=== PATIENT | female | born 1950 | race Caucasian/White ===

== ENCOUNTER 2017-12-25 05:49 | Emergency (ER) | payer MEDICARE, SELFPAY ==
[2017-12-25 05:50] VITALS: BP 142/115; PULSE 64; RESP 17; TEMP 36.3; O2SAT 95; BMI 27.9
--- NOTE | 2017-12-25 06:06 | CT_ITS ---
STUDY: CT ABDOMEN AND PELVIS WITHOUT CONTRAST REASON FOR EXAM: Female, 67 years old. Left lower quadrant pain. RADIATION DOSAGE (If Supplied By Facility): CTDIvol = ( 7.89 ) mGy, DLP = ( 354.97 ) mGycm TECHNIQUE: Transaxial images were obtained from the dome of the diaphragm to the symphysis pubis without oral contrast, and without intravenous contrast. Sagittal and coronal images were reconstructed. Individualized dose optimization techniques were used for this CT. COMPARISON: Comparison is made with prior study dated January 15, 2013. FINDINGS: Mild increased markings at the lung bases suggestive of scarring. Coronary artery calcification. Stable 2.9 cm x 2.5 cm rounded hypodensity in the right lobe of the liver inferiorly. This was seen on prior examinations and most likely represents a hemangioma. Normal gallbladder and extrahepatic biliary system. Normal spleen. Normal pancreas. Normal bilateral adrenal glands. Small nonobstructive right intrarenal calculi. Nonobstructive left intrarenal calculi. There is a small hiatal hernia. Normal small intestine. There are multiple colonic diverticula consistent with diverticulosis. There is non-visualization of the appendix. There is diffuse atherosclerotic calcification of the abdominal aorta, without a demonstrated aneurysm. Normal inferior vena cava. Normal retroperitoneum. Normal urinary bladder. There is absence of the uterus consistent with a prior hysterectomy. There is a small umbilical hernia containing fat. Small bilateral inguinal lymph nodes. There are diffuse degenerative changes of the visualized lumbar spine. Status post laminectomy at the L4-L5 level. CT/Abdomen/Pelvis without Cont IMPRESSION: Stable hypodensity in the inferior aspect of the right lobe of the liver suggestive of hemangioma. Bilateral nonobstructive intrarenal calculi more prominent on the right side. Sigmoid diverticulosis. Prior appendectomy and hysterectomy. Electronically Signed: Tylor Amor MD at 8:10 EST Tel [phone], Service support ,
[2017-12-25 06:21] LABS: Absolute Lymphocyte Count 1.16 X10^3/ul (0.83-4.51); Absolute Neutrophil Count 1.4 X10^3/uL (2.0-7.7); Basophil# 0.02 X10^3/uL; Basophil% 0.6 % (0-1); Eosinophil# 0.08 X10^3/uL; Eosinophils% 2.5 % (0-5); Hematocrit 42.5 % (37-47); Hemoglobin 13.7 g/dl (12.0-15.0); Lymphocyte # 1.16 X10^3/ul (4.0); Lymphocyte % 36.7 % (19-41); Mean Corp Hgb Conc 32.2 g/gl (32-36); Mean Corpuscular Hgb 29.7 pg (27.0-32.0); Mean Platelet Vol. 9.7 fl (6.2-12.0); Monocyte% 15.8 % (0-10); Neutrophil % 44.4 % (47-70); Platelet Count 205 K/mm3 (150-450); RBC Distribution Width CV 13.1 % (11.6-14.6); RBC Distribution Width SD 43.7 fl (35.1-43.9); Red Blood Count 4.62 M/mm3 (4.2-5.4); White Blood Count 3.2 K/mm3 (4.4-11.0)
[2017-12-25 06:23] LABS: POSITIVE COUNT NO; POSITIVE DIFFERENTIAL NO; POSITIVE MORPHOLOGY NO
[2017-12-25] MEDS: Ondansetron 4 MG/2 ML Vial IV (06:27)
--- NOTE | 2017-12-25 06:27 | ED.VISSUMM ---
- ER Visit Summary Date of Service: 12/25/17 Chief Complaint: [Abdominal pain] History of Present Illness: The patient is a 67 F [who presents the emergency department with left side abdominal pain that started abruptly about 40 minutes ago. No nausea or vomiting. The pain is now resolved. Bowel movements have been normal. She has been having dysuria and frequency for the last 2 weeks. She was started on Tamiflu last Monday and her flu symptoms are improving. She thought her dysuria and frequency we was due to the medication. She has a history of hypertension hyperlipidemia as well as kidney stones. She has had an appendectomy and a tubal ligation. She followed by Dr. Eduardo and Peggy Sarabia] Physical Examination: [] Blood pressure 142/115 other vitals within normal limits WN WD NAD PERRL EOMI MMM NECK supple and nontender, no masses RRR no murmur rub or gallop, no peripheral edema, symmetric radial pulses CTAB no respiratory distress ABDOMEN is soft and mild tenderness to palpation in the left upper and left lower quadrant, normal bowel sounds, no distension, no rebound or guarding SKIN is warm and dry no rashes Alert and Oriented x3, CN II-XII in tact, no motor or sensory deficits, gait normal No lymphadenopathy Test Results: [] Emergency Department Course and Treatment: [Patient was given gentle hydration. Screening labs are significant for a leukopenia at 3.2 which is likely related due to her recent viral illness. Urinalysis and CAT scan are pending. Patient appears very well. She has mild tenderness on exam. I anticipate that she will be discharged home. She continues to remain with minimal pain in the emergency department. Results urinalysis and CAT scan will be read by oncoming physician.] Treatment Plan: [] Disposition: [] Impression: [Abdominal pain left-sided] This note was generated with [employer]ation software. It may contain incorrect words, spelling, and punctuation that were not noted in review of the chart prior to signing ED Disposition - Plan for ED Patient: Chief Complaint: Abd Pain Referrals: Peggy Lott [Primary Care Provider] -
[2017-12-25] MEDS: 0.9% Normal Saline 1,000 ML 125 ML IV (06:29)
[2017-12-25 06:36] LABS: ALB/GLOB Ratio 0.8 RATIO (0.9-2.4); AST(SGOT) 25 U/L (15-37); Alanine Aminotransfer ALT/SGPT 25 U/L (13-56); Albumin, Serum 3.3 g/dL (3.2-5.0); Alkaline Phosphatase 66 U/L (45-117); Anion Gap 8 (5-15); BUN 16 mg/dL (7-18); BUN/Creat Ratio 20.8 RATIO (10-20); Chloride 104 mmol/L (98-107); Creatinine, Serum 0.77 mg/dL (0.55-1.02); EST Glomerular Filtration Rate 79 mL/min (>60); Est Glom Filt Rate - Afr Amer 96 mL/min (>60); Estimated Creatinine Clearance 40.63 ml/min; Globulin 3.9 g/dL (2.2-4.2); Glucose 96 mg/dL (70-110); Lipase 211 U/L (73-393); Protein, Total 7.2 g/dL (6.4-8.2); Sodium Level 140 mmol/L (136-145)
[2017-12-25 07:52] LABS: Bacteria 0 SEEN /hpf (None Seen); Mucous, Urine 0 SEEN /hpf (<or=2+); Red Blood Cells-Urine 0 SEEN /hpf (0-5); Squamous Epithelial Cells - UA 0 SEEN /hpf (5-10)
[2017-12-25 07:54] LABS: Color, Urine Straw (Yellow); Glucose, Dipstick Normal (Normal); Ketone-Dipstick Negative (Negative); Leukocyte Esterase-Dipstick Negative /ul (Negative); Nitrite-Dipstick Negative (Negative); Occult Blood-Urine Negative /ul (Negative); Protein-Dipstick Negative (Negative); Urine Bilirubin Dipstick Negative (Negative); Urine Clarity Clear (Clear); Urine Urobilinogen Normal (Normal)
[2017-12-25 08:02] LABS: White Blood Cells 0-5 SEEN /hpf (0-5)
--- NOTE | 2017-12-25 08:38 | ED.VISSUMM ---
- ER Visit Summary Date of Service: 12/25/17 Chief Complaint: [] History of Present Illness: The patient is a 67 F [] Physical Examination: [] Test Results: [] Emergency Department Course and Treatment: [] Treatment Plan: [] Disposition: [] Impression: [] This note was generated with bright box dictation software. It may contain incorrect words, spelling, and punctuation that were not noted in review of the chart prior to signing ED Disposition - Plan for ED Patient: Disposition: Home or Assisted Living Chief Complaint: Abd Pain Instructions: ED Abdominal Pain Unkn Cause Referrals: Peggy Lott [Primary Care Provider] - As Needed
== END 2017-12-25 08:51 | disposition home or self-care (01) ==
PROVIDERS: Emergency Provider Emergency Medicine; Family Provider Nurse Practitioner; PCP Nurse Practitioner
DX: R10.32 Left lower quadrant pain (principal); R10.12 Left upper quadrant pain; K57.30 Diverticulosis of large intestine without perforation or abscess without bleeding; D18.03 Hemangioma of intra-abdominal structures; R30.0 Dysuria; R35.0 Frequency of micturition; I10 Essential (primary) hypertension; E78.5 Hyperlipidemia, unspecified; E66.9 Obesity, unspecified; Z79.899 Other long term (current) drug therapy; Z87.442 Personal history of urinary calculi; Z98.51 Tubal ligation status
CPT/HCPCS: 74176; 80053; 81001; 83690; 85025; 96361; 96374; 96375; 99283; J7050; A4216; J2405

== ENCOUNTER → 2018-01-24 10:09 | Outpatient (CLI) | payer MEDICARE, SELFPAY ==
--- NOTE | 2018-01-24 10:12 | NM_ITS ---
CLINICAL: 67-year-old female with history of suspected hyperparathyroidism. 99m Tc SESTAMIBI DUAL PHASE PARATHYROID SCINTIGRAPHY COMPARISON: None available FINDINGS: Following the intravenous administration of 26.0 mCi of 99m Tc sestamibi, image acquisitions of the anterior neck at approximately 30 minutes and 2.0 hours post radiopharmaceutical provision reveal: 1. Immediate static blood pool acquisitions demonstrate distribution of the radiopharmaceutical in the right-left thyroid colloid of a U-shaped thyroid gland. There is subtle tracer concentration identified in the left anterior neck adjacent to the inferior pole of the visualized left lobe thyroid parenchyma. 2. Delayed images depict near complete symmetric washout of the radiopharmaceutical from the previously defined right-left thyroid colloid with relatively unchanged uptake noted in the region left anterior neck adjacent to the left thyroid bed inferior pole. NM/Parathyroid Scan IMPRESSION: 1. There is no definitive typical scintigraphic evidence of parathyroid adenoma on the current examination. 2. Correlation with thyroid ultrasound may be of benefit for further evaluation of the subtle left anterior neck focus of persistent tracer concentration. Electronically Signed: Vern Hendricks DO at 10:08 EST Tel , Service support ,
== END ==
PROVIDERS: Family Provider Nurse Practitioner; PCP Nurse Practitioner; Visit Provider Nurse Practitioner
DX: E21.5 Disorder of parathyroid gland, unspecified (principal)
CPT/HCPCS: 78070; A9500

== ENCOUNTER → 2018-02-19 15:01 | Outpatient (CLI) | payer MEDICARE, SELFPAY ==
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
== END ==
PROVIDERS: Family Provider Nurse Practitioner; PCP Nurse Practitioner; Visit Provider Nurse Practitioner
DX: S13.4XXA Sprain of ligaments of cervical spine, initial encounter (principal); X58.XXXA Exposure to other specified factors, initial encounter; Y93.9 Activity, unspecified; Y92.9 Unspecified place or not applicable; Y99.9 Unspecified external cause status
CPT/HCPCS: 72050

== ENCOUNTER 2018-04-17 16:30 | Outpatient (RCR) | payer MEDICARE, SELFPAY ==
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
== END 2018-04-17 19:00 | disposition home or self-care (01) ==
LOC: PT 16:30
PROVIDERS: Family Provider Nurse Practitioner; PCP Nurse Practitioner; Visit Provider Nurse Practitioner
DX: S13.4XXD Sprain of ligaments of cervical spine, subsequent encounter (principal)
CPT/HCPCS: 97035; 97110; 97140; 97162; 97530

== ENCOUNTER 2018-07-24 17:25 | Emergency (ER) | payer MEDICARE, SELFPAY ==
[2018-07-24 17:26] VITALS: BP 113/72; PULSE 71; RESP 16; TEMP 36.4; O2SAT 99; BMI 22.4
[2018-07-24 18:41] LABS: Absolute Lymphocyte Count 0.62 X10^3/ul (0.83-4.51); Absolute Neutrophil Count 4.7 X10^3/uL (2.0-7.7); Basophil# 0.02 X10^3/uL; Basophil% 0.3 % (0-1); Eosinophil# 0.03 X10^3/uL; Eosinophils% 0.5 % (0-5); Hematocrit 36.8 % (37-47); Hemoglobin 11.8 g/dl (12.0-15.0); Lymphocyte # 0.62 X10^3/ul (4.0); Lymphocyte % 10.5 % (19-41); Mean Corp Hgb Conc 32.1 g/gl (32-36); Mean Corpuscular Hgb 29.5 pg (27.0-32.0); Mean Platelet Vol. 9.1 fl (6.2-12.0); Monocyte# 0.53 X10^3/uL; Neutrophil # 4.67 X10^3/uL (2.7-7.7); Neutrophil % 79.5 % (47-70); POSITIVE COUNT NO; POSITIVE DIFFERENTIAL NO; POSITIVE MORPHOLOGY NO; Platelet Count 203 K/mm3 (150-450); RBC Distribution Width CV 14.1 % (11.6-14.6); RBC Distribution Width SD 47.6 fl (35.1-43.9); White Blood Count 5.9 K/mm3 (4.4-11.0)
[2018-07-24 18:44] VITALS: BP 110/73; BP 119/74; BP 97/77; PULSE 76; PULSE 77; PULSE 79
[2018-07-24] MEDS: 0.9% Normal Saline 1,000 ML 1000 ML IV (18:44)
[2018-07-24 18:52] LABS: Anion Gap 8 (5-15); BUN 18 mg/dL (7-18); BUN/Creat Ratio 25.1 RATIO (10-20); Calcium,Total 8.1 mg/dL (8.5-10.1); Chloride 110 mmol/L (98-107); Creatinine, Serum 0.72 mg/dL (0.55-1.02); EST Glomerular Filtration Rate 86 mL/min (>60); Est Glom Filt Rate - Afr Amer 104 mL/min (>60); Estimated Creatinine Clearance 40.63 ml/min; Glucose 78 mg/dL (74-106); Sodium Level 142 mmol/L (136-145)
--- NOTE | 2018-07-24 18:53 | ED.DCSUM_ITS ---
- ER Visit Summary Date of Service: 07/24/18 Chief Complaint: Dehydrated History of Present Illness: The patient is a 67 F who sees Peggy sees her. She reports that she had been working in the heat was very lightheaded. This worsened when she stood. She did not pass out. States that she has had similar symptoms in the past with dehydration. Review of systems: General: No fever, chills, cold sweats. Cardiovascular: No chest pain, palpitations. Respiratory: No cough, shortness of breath, dyspnea on exertion. Gastrointestinal: No abdominal pain, nausea, vomiting, diarrhea, melena, or hematochezia. Genitourinary: No dysuria, frequency, hematuria. Skin: No rash. Neuro: No headache, numbness, weakness. Physical Examination: Vitals: Stable. Afebrile. General: Well-nourished and well-developed. Head: Normocephalic atraumatic. Neck: Supple, no lymphadenopathy. No JVD. Nontender. Cardiovascular: Regular rate and rhythm. No murmurs. Respiratory: No respiratory distress. Clear to auscultation bilaterally. Abdominal: Soft, nontender, nondistended, normal bowel sounds. No guarding, rebound, or peritoneal signs. Back: Nontender. Extremities: Nontender, no edema. Skin: Normal color, no rash. Neurologic: Alert and oriented ?3. Cranial nerves II through XII are intact. Normal strength and sensation. Psych: Normal affect. Test Results: EKG is sinus at 67 with no acute changes. CBC is marked for an H& H 11.36.8, segmented neutrophils 80, lymphs lites of 11. Chem-7 is more for chloride 110, calcium 8.1, and BUN/creatinine ratio 25.1. Emergency Department Course and Treatment: Patient had negative orthostatic vital signs. She was given a liter of normal saline and feels much improved. Treatment Plan: Patient be discharged instructions to push fluids. Follow-up with her primary care physician 1-2 days not improving. Return to the emergency department for any worsening symptoms. Disposition: To home in improved and stable condition. Impression: 1. Dehydration. This note was generated with [employer] software. It may contain incorrect words, spelling, and punctuation that were not noted in review of the chart prior to signing ED Disposition - Plan for ED Patient: Disposition: Home or Assisted Living Chief Complaint: Dizziness Instructions: ED Dehydration Referrals: Peggy Lott [Primary Care Provider] - 1-2 Days if not improving
[2018-07-24 19:40] VITALS: BP 113/78; PULSE 74; RESP 15; O2SAT 98
== END 2018-07-24 19:40 | disposition home or self-care (01) ==
PROVIDERS: Emergency Provider Emergency Medicine; Family Provider Nurse Practitioner; PCP Nurse Practitioner
DX: E86.0 Dehydration (principal); I10 Essential (primary) hypertension; Z79.899 Other long term (current) drug therapy
CPT/HCPCS: 80048; 85025; 93005; 96360; 99285; J7030; A4216

== ENCOUNTER → 2018-09-10 16:34 | Outpatient (CLI) | payer MEDICARE, SELFPAY ==
--- NOTE | 2018-09-10 16:37 | RAD_ITS ---
STUDY: X-RAY - RIGHT SHOULDER REASON FOR EXAM: Female, 67 years old. Pain. Fall. TECHNIQUE: 5 view(s) of the shoulder. COMPARISON: None. FINDINGS: Normal glenohumeral articulation. Normal acromioclavicular joint. Normal acromion. Normal humeral head and visualized proximal humerus. The soft tissue structures are unremarkable. There is no demonstrated fracture. Normal visualized pulmonary apex. RAD/Shoulder min 2 Views IMPRESSION: Normal x-ray examination of the shoulder. Electronically Signed: Christian Simeon MD at 18:53 EDT , Service support ,
[2018-09-10 17:42] LABS: Absolute Lymphocyte Count 1.01 X10^3/ul (0.83-4.51); Absolute Neutrophil Count 4.3 X10^3/uL (2.0-7.7); Basophil# 0.04 X10^3/uL; Basophil% 0.7 % (0-1); Eosinophil# 0.07 X10^3/uL; Eosinophils% 1.2 % (0-5); Hematocrit 43.8 % (37-47); Hemoglobin 14.2 g/dl (12.0-15.0); Lymphocyte # 1.01 X10^3/ul (4.0); Lymphocyte % 16.9 % (19-41); Mean Corp Hgb Conc 32.4 g/gl (32-36); Mean Corpuscular Hgb 29.9 pg (27.0-32.0); Mean Corpuscular Volume 92.2 fL (81-99); Mean Platelet Vol. 9.7 fl (6.2-12.0); Monocyte# 0.58 X10^3/uL; Monocyte% 9.7 % (0-10); Neutrophil # 4.25 X10^3/uL (2.7-7.7); Neutrophil % 71.3 % (47-70); Platelet Count 260 K/mm3 (150-450); RBC Distribution Width CV 13.8 % (11.6-14.6); RBC Distribution Width SD 45.2 fl (35.1-43.9); Red Blood Count 4.75 M/mm3 (4.2-5.4)
[2018-09-10 17:44] LABS: Iron 79 ug/dL (50-170)
[2018-09-10 17:49] LABS: POSITIVE COUNT NO; POSITIVE DIFFERENTIAL NO; POSITIVE MORPHOLOGY NO
== END ==
PROVIDERS: Family Provider Nurse Practitioner; PCP Nurse Practitioner; Referring Provider Nurse Practitioner; Visit Provider Nurse Practitioner
DX: M25.511 Pain in right shoulder (principal); D64.9 Anemia, unspecified
CPT/HCPCS: 36415; 73030; 83540; 85025

== ENCOUNTER 2018-10-25 16:30 | Emergency (ER) | payer MEDICARE, SELFPAY ==
[2018-10-25 16:32] VITALS: BP 131/93; PULSE 107; RESP 18; TEMP 37.4; O2SAT 98; BMI 22.6
--- NOTE | 2018-10-25 16:44 | ED.DCSUM_ITS ---
- ER Visit Summary Date of Service: 10/25/18 Chief Complaint: Right knee injury History of Present Illness: The patient is a 68 F presents to the emergency department for any injury. Patient states on Monday, she was walking. She tripped on the carpet and twisted her knee. Since then, she had increasing pain. She has been taking Motrin with little improvement. The knee has not been giving out on her. She denies any history of prior injury. She does not take anticoagulants. She did not fully fall or strike her head. Physical Examination: Exam is relatively unremarkable. Patient is a small effusion of her knee. Her extension is preserved. There is no gross laxity. S he is tender over the medial plateau and along the MCL. Pulses are normal in the foot. Test Results: [] Emergency Department Course and Treatment: I suspicion is that the patient may have MCL injury. There is no gross laxity of the knee. I did obtain plain films which were unremarkable. There is no fracture. She does have a small effusion. Patient was given crutches and an Cody wrap. She will be continued on anti-inflammatories. She will be given outpatient orthopedic referral for repeat examination. She is comfortable with this plan of care. Treatment Plan: [] Disposition: Discharge Impression: Right knee sprain This note was generated with [employer] dictation software. It may contain incorrect words, spelling, and punctuation that were not noted in review of the chart prior to signing ED Disposition - Plan for ED Patient: Chief Complaint: Lower Extremity Injury Instructions: ED Sprain Knee Prescriptions: Hydrocodone Bitart/Apap 5-325 [[place] 5MG-325MG] 1 tab PO Q4H PRN PRN 2 Days #6 tab PRN Reason: Pain Naproxen [Naprosyn] 500 mg PO BID PRN #20 tab Referrals: Kristopher Sparks DO [STAFF PHYSICIAN] -
--- NOTE | 2018-10-25 17:00 | RAD_ITS ---
STUDY: X-RAY - RIGHT KNEE REASON FOR EXAM: Female, 68 years old. Right medial knee pain after tripping and falling. TECHNIQUE: 4 view(s) of the knee. COMPARISON: None. FINDINGS: Normal visualized distal femur. Normal visualized proximal tibia and fibula. Normal proximal tibiofibular articulation. A faint ossified body measuring about 2 mm is visualized on the sunrise view of the patella in or projecting through the medial patellofemoral joint space without an obvious donor site. Normal medial femorotibial compartment. Normal lateral femorotibial compartment. Normal patellofemoral articulation. Anterior medial soft tissue swelling. RAD/Knee 4 or More Views IMPRESSION: Negative for definite fracture; however, a faintly visualized ossified body is visualized in or projecting through the medial compartment of the patellofemoral compartment without any obvious donor site. Negative for any arthritic or degenerative changes. Electronically Signed: Bety Díaz MD at 17:16 EST , Service support ,
[2018-10-25] MEDS: HYDROcodone Bitartrate/Apap 5/325 Tablet PO (17:07)
[2018-10-25 17:19] VITALS: BP 138/67; PULSE 71; RESP 15; O2SAT 96
--- OUTSIDE RECORDS SUMMARY | 2018-12-20 23:14 | XMS RPT_ITS | Continuity of Care Document ---
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 Silvana Simmons MD Status: REG CLI Study: Dexa Bone Density Study (HP) Date of Exam: 06/30/15 Exam# [id number] Ordering Dr: Obi Simmons MD STUDY: DUAL ENERGY X-RAY ABSORPTIOMETRY / DXA REASON FOR EXAM: Female, 64 years old. The patient is postmenopausal. TECHNIQUE: Bone Mineral Density (BMD) measurements of lumbar spine and b ilateral hips were obtained. COMPARISON: Comparison is made with prior study of January 31, 2013. FINDINGS: Lumbar Spine (L1-L4): g/cm2 (0.878) / T-score (-2.4) / Z-score (-0.8) Findings are suggestive of osteopenia with a moderate fracture risk. Left Femur Total: g/cm2 (0.719) / T-score (-2.4) / Z-score (-1.1) Left Femoral Neck: g/cm2 (0.694) / T-score (-2. 5) / Z-score (-1.0) Right Femur Total: g/cm2 (0.735) / T-score (-2.2) / Z-score (-0.9) Right Femoral Neck: g/cm2 (0.670) / T-score (-2.6) / Z-score (-1.2) The T-Scores on the most recent prior exami nation were: Lumbar Spine (L1-L4): There has been improvement of bone density since the previous examination. Left Femur Total: which represents a worsening of 1.1%. Right Femur Total: which repre sents a worsening of 0.9%. IMPRESSION: The patient is considered osteopenic as outlined below according to World [place] Organization (WHO) criteria with a moderat e fracture risk. There has been worsening of bone density since the previous examination. Reference Information: The T-score is the number of standard deviation s above or below the standard which is normal for young adults at their peak bone mineral density. The World Health Organization (WHO) interprets the T- scores as follows: Above -1 Normal bone densi ty Between -1 and -2.5 Osteopenia Equal to / or below -2.5 Osteoporosis As a practical clinical guideline, osteopenia may be graded as follows: Mild -1 through -1.5 Moderate -1.6 through -2.0 Sev ere -2.1 through -2.4 The Z-score is the number of standard deviations above or below age-matched controls. A Z-score of less than -1.5 would be considered abnormal. References: 1. NIH Osteoporosi s and Related Bone Diseases http://www.osteo.org 2. International Society for Clinical Densitometry http://www.iscd.org 3. National Osteoporosis Foundation http://www.nof.org Electronically Signed: Tylor Amor MD at 15:00 EDT Tel [phone], Service support [phone], CC: Silvana Simmons MD Windows And Doors Installer: Signed 14-Nov-2014 Echocardiogram Complete Result: Comments: See Note; NOTES: [facility] [address] [place] [id number] Echo Complete 11/14/14 1048 MR#: [id number] Acct: [id number] Name: ANTWAN FELIX Rep #: [id number] : 1950 64 From: Capo Powell MD Attending Dr: Silvana Simmons MD Status: REG CLI Ordering Dr: Silvana Simmons MD Date: 11/14/14 Location: [facility] Sex: F C Admitted: Aisha raekimberlycordelia This was a 2D Doppler, Color Flow transthoracic echocardiogram. Exam performed in department. Left Ventricle Normal LV size. Left ventricular systolic function is normal. The estimated eje ction fraction is 60 %. Transmitral and pulmonary venous doppler flow suggestive of impaired relaxation of left ventricle. No regional wall motion abnormalities noted. Right Ventricle Normal RV si ze. Normal systolic function. Atria Normal left atrium. Normal right atrium. Mitral Valve Normal mitral valve. Tricuspid Valve Normal tricuspid valve. Mild tricuspid valve insufficiency. Aort ic Valve Normal aortic valve. Pulmonic Valve Normal pulmonic valve. Great Vessels Mildly dilated aortic root. Pericardium/Pleural No pericardial effusion. MMode/2D Measurements AND Calculati ons LVIDd: 5.1 cm IVSd: 0.85 cm Ao root diam: 3.9 cm LAV(MOD-bp): 31.5 ml LVIDs: 4.1 cm LVPWd: 0.64 cm Ao root area: 11.7 cm2 LAV(MOD-bp) Indexed: 19.7 ml/m2 RVDd: 3.3 cm FS: 19.8 % LAV(MOD-sp2) : 3 7.4 ml LAV(MOD-sp4) : 24.3 ml LA A4 area: 12.1 cm2 RA A4 area: 12.5 cm2 Doppler Measurements AND Calculations MV E max eulalia: Lat Peak E' Eulalia: Med Peak E' Eulalia: Ao V2 max: 124.7 cm/sec 51.2 cm/sec 9.1 cm/sec 5.6 cm/sec Ao max P.2 mmHg MV A max eulalia: 80.7 cm/sec MV E/A: 0.63 LV V1 max: 94.4 cm/sec MR max eulalia: 473.8 cm/sec PA V2 max: 82.5 cm/sec TR max eulalia: LV V1 max P.6 mmHg MR max P.8 mmHg PA max P.7 mmHg 215.8 cm/sec TR max P.7 mmHg E/E' lat: 5.7 E/E' med: 9.2 Interpretation Summary Normal LV size. Left ve ntricular systolic function is normal. The estimated ejection fraction is 60 %. Transmitral and pulmonary venous doppler flow suggestive of impaired relaxation of left ventricle Ordering Physician: Silvana Simmons Performed By: Mckenzie Longo RDCS 11/14/14 1406 Date Capo Powell MD CC: Silvana Simmons MD Date Dictated: 11/14/14 1048 Date Transcribed: 11/14/14 1406 Windows And Doors Installer: Signed 04-Nov-2014 12 Lead Electrocardiogram Result: Comments: See Note; NOTES: [facility] [address] [place] [id number] 12 Lead EKG 11/02/14 1128 MR#: [id number] Acct: [id number] Name: VANITA FELIX Scarlett Rep #: [id number] : 1950 64 From: Capo Powell MD Attending Dr: Status: DEP ER Ordering Dr: Rafiq Chau MD Date: 11/02/14 Location: ED Sex: F C Admitted: Test Reason : SYN COPE Blood Pressure : / mmHG Vent. Rate : 103 BPM Atrial Rate : 103 BPM P-R Int : 132 ms QRS Dur : 086 ms QT Int : 330 ms P-R-T Axes : 053 -36 016 degrees QTc Int : 432 ms Sinus tachycar jillian Left axis deviation Inferior infarct , age undetermined Abnormal ECG Confirmed by CAPO POWELL MD ([id number]), production editor BEENA JIN ([id number]) on 11/04/2014 10:22:44 AM Referred By: JANET Lema B y:CAPO POWELL MD 11/04/14 1022 Date Capo Powell MD CC: Silvana Simmons MD Date Dictated: 11/02/141127 Date Transcribed: 11/02/141127 Windows And Doors Installer: Signed Family History Unknown Family Member Name Dates Details Brother 1 Comments: aneurysm, brain age 38 Status: Active Father Comments: aneurysm, Status: Active Mother Comments: Alzheimer's, CHF, Status: Active Sister 4 Comments: Stage 4 liver cancer Status: Active Social History Name Dates Details Caffeine Use Comments: occ. cup coffee qd Status: Active Current Work/Study Status Comments: Unemployed not looking for work Status: Active Exercise History Comments: Moderate Status: Active Living Situation Comments: , Lives with spouse Status: Active No Drug Use Status: Active Non Drinker/No Alcohol Use Status: Active Non Smoker/No Tobacco Use Status: Active Tobacco use: Never smoker. Status: Active Smoking Status Name Dates Details Never smoker Vital Signs Date Test Result Details :17 Temperature 98.8 f Comments: Method: Temporal Pulse 82 /min Comments: Pattern: Regular Respiration Rate 17 /min Comments: Pattern: Unlabored O2 SAT 97 % Comments: Room air BP Systolic 112 mm[Hg] Comments: Patient Position: Sitting; Cuff Location: Left Arm; Cuff Size: Standard BP Diastolic 72 mm[Hg] Comments: Patient Position: Sitting; Cuff Location: Left Arm; Cuff Size: Standard Weight 120.5 lb Height 60.5 in Body Mass Index Calculated 23.15 kg/m2 Body Surface Area Calculated 1.51 m2 :04 Temperature 97.1 f Pulse 108 /min Comments: Pattern: Regular Respiration Rate 17 /min Comments: Pattern: Unlabored O2 SAT 98 % Comments: Room air BP Systolic 132 mm[Hg] Comments: Patient Position: Sitting; Cuff Location: Left Arm; Cuff Size: Standard BP Diastolic 82 mm[Hg] Comments: Patient Position: Sitting; Cuff Location: Left Arm; Cuff Size: Standard Weight 120 lb Height 60.5 in Body Mass Index Calculated 23.05 kg/m2 Body Surface Area Calculated 1.51 m2 :11 Pulse 87 /min Comments: Pattern: Regular Respiration Rate 17 /min Comments: Pattern: Unlabored O2 SAT 87 % Comments: Room air BP Systolic 128 mm[Hg] Comments: Patient Position: Sitting; Cuff Location: Left Arm; Cuff Size: Standard BP Diastolic 68 mm[Hg] Comments: Patient Position: Sitting; Cuff Location: Left Arm; Cuff Size: Standard Weight 129.5 lb Height 60.5 in Body Mass Index Calculated 24.87 kg/m2 Body Surface Area Calculated 1.56 m2 :09 Pulse 112 /min Comments: Pattern: Regular Respiration Rate 18 /min Comments: Pattern: Unlabored O2 SAT 96 % Comments: Room air BP Systolic 122 mm[Hg] Comments: Patient Position: Sitting; Cuff Location: Left Arm; Cuff Size: Large BP Diastolic 80 mm[Hg] Comments: Patient Position: Sitting; Cuff Location: Left Arm; Cuff Size: Large Weight 133 lb Height 60.5 in Body Mass Index Calculated 25.55 kg/m2 Body Surface Area Calculated 1.58 m2 :28 Temperature 97.5 f Pulse 97 /min Comments: Pattern: Regular Respiration Rate 16 /min Comments: Pattern: Unlabored O2 SAT 96 % Comments: Room air BP Systolic 126 mm[Hg] Comments: Patient Position: Sitting; Cuff Location: Left Arm; Cuff Size: Standard BP Diastolic 82 mm[Hg] Comments: Patient Position: Sitting; Cuff Location: Left Arm; Cuff Size: Standard Weight 133 lb Height 60.5 in Body Mass Index Calculated 25.55 kg/m2 Body Surface Area Calculated 1.58 m2 :57 Temperature 97.9 f Pulse 76 /min Comments: Pattern: Regular Respiration Rate 18 /min Comments: Pattern: Unlabored O2 SAT 98 % Comments: Room air BP Systolic 138 mm[Hg] Comments: Patient Position: Sitting; Cuff Location: Left Arm; Cuff Size: Standard BP Diastolic 86 mm[Hg] Comments: Patient Position: Sitting; Cuff Location: Left Arm; Cuff Size: Standard Weight 140.125 lb Height 60.5 in Body Mass Index Calculated 26.92 kg/m2 Body Surface Area Calculated 1.61 m2 :55 Temperature 97.1 f Pulse 81 /min Comments: Pattern: Regular Respiration Rate 16 /min Comments: Pattern: Unlabored O2 SAT 97 % Comments: Room air BP Systolic 124 mm[Hg] Comments: Patient Position: Sitting; Cuff Location: Left Arm; Cuff Size: Standard BP Diastolic 82 mm[Hg] Comments: Patient Position: Sitting; Cuff Location: Left Arm; Cuff Size: Standard Weight 147.375 lb Height 60.5 in Body Mass Index Calculated 28.31 kg/m2 Body Surface Area Calculated 1.65 m2 :52 Temperature 97.4 f Pulse 117 /min Comments: Pattern: Regular Respiration Rate 16 /min Comments: Pattern: Unlabored O2 SAT 95 % Comments: Room air BP Systolic 134 mm[Hg] Comments: Patient Position: Sitting; Cuff Location: Left Arm; Cuff Size: Standard BP Diastolic 88 mm[Hg] Comments: Patient Position: Sitting; Cuff Location: Left Arm; Cuff Size: Standard Weight 154.125 lb Height 60.5 in Body Mass Index Calculated 29.6 kg/m2 Body Surface Area Calculated 1.68 m2 :05 Temperature 97.9 f Pulse 114 /min Comments: Pattern: Regular Respiration Rate 18 /min Comments: Pattern: Unlabored O2 SAT 95 % Comments: Room air BP Systolic 172 mm[Hg] Comments: Patient Position: Sitting; Cuff Location: Left Arm; Cuff Size: Standard BP Diastolic 100 mm[Hg] Comments: Patient Position: Sitting; Cuff Location: Left Arm; Cuff Size: Standard Weight 156.25 lb Height 60.5 in Body Mass Index Calculated 30.01 kg/m2 Body Surface Area Calculated 1.69 m2 :54 Temperature 97.6 f Pulse 105 /min Comments: Pattern: Regular Respiration Rate 18 /min Comments: Pattern: Unlabored O2 SAT 95 % Comments: Room air BP Systolic 118 mm[Hg] Comments: Patient Position: Sitting; Cuff Location: Left Arm; Cuff Size: Standard BP Diastolic 80 mm[Hg] Comments: Patient Position: Sitting; Cuff Location: Left Arm; Cuff Size: Standard Weight 155.125 lb Height 60.5 in Body Mass Index Calculated 29.8 kg/m2 Body Surface Area Calculated 1.69 m2 :23 Temperature 97.8 f Pulse 115 /min Comments: Pattern: Regular Respiration Rate 17 /min Comments: Pattern: Unlabored O2 SAT 97 % Comments: Room air BP Systolic 138 mm[Hg] Comments: Patient Position: Sitting; Cuff Location: Left Arm; Cuff Size: Standard BP Diastolic 88 mm[Hg] Comments: Patient Position: Sitting; Cuff Location: Left Arm; Cuff Size: Standard Weight 153 lb Height 60.5 in Body Mass Index Calculated 29.39 kg/m2 Body Surface Area Calculated 1.68 m2 :32 Temperature 97.2 f Pulse 98 /min Comments: Pattern: Regular Respiration Rate 16 /min Comments: Pattern: Unlabored O2 SAT 96 % Comments: Room air BP Systolic 118 mm[Hg] Comments: Patient Position: Sitting; Cuff Location: Left Arm; Cuff Size: Standard BP Diastolic 78 mm[Hg] Comments: Patient Position: Sitting; Cuff Location: Left Arm; Cuff Size: Standard Weight 153.125 lb Height 60.5 in Body Mass Index Calculated 29.41 kg/m2 Body Surface Area Calculated 1.68 m2 :26 Temperature 97.9 f Pulse 110 /min Comments: Pattern: Regular Respiration Rate 17 /min Comments: Pattern: Unlabored O2 SAT 98 % Comments: Room air BP Systolic 118 mm[Hg] Comments: Patient Position: Sitting; Cuff Location: Left Arm; Cuff Size: Standard BP Diastolic 82 mm[Hg] Comments: Patient Position: Sitting; Cuff Location: Left Arm; Cuff Size: Standard Weight 153.125 lb Height 60.5 in Body Mass Index Calculated 29.41 kg/m2 Body Surface Area Calculated 1.68 m2 : Temperature 97.9 f Comments: Method: Temporal Pulse 98 /min Comments: Pattern: Regular O2 SAT 97 % Comments: Room air BP Systolic 108 mm[Hg] Comments: Patient Position: Sitting; Cuff Location: Left Arm; Cuff Size: Standard BP Diastolic 66 mm[Hg] Comments: Patient Position: Sitting; Cuff Location: Left Arm; Cuff Size: Standard Weight 148 lb Height 60.5 in Body Mass Index Calculated 28.43 kg/m2 Body Surface Area Calculated 1.65 m2 :24 Temperature 97.4 f Comments: Method: Temporal Pulse 90 /min Comments: Pattern: Regular Respiration Rate 18 /min Comments: Pattern: Unlabored O2 SAT 97 % Comments: Room air BP Systolic 126 mm[Hg] Comments: Patient Position: Sitting; Cuff Location: Left Arm; Cuff Size: Standard BP Diastolic 78 mm[Hg] Comments: Patient Position: Sitting; Cuff Location: Left Arm; Cuff Size: Standard Weight 144 lb Height 60.5 in Body Mass Index Calculated 27.66 kg/m2 Body Surface Area Calculated 1.63 m2 :21 Comments: patient did not take b/p medication yet today Temperature 97.8 f Comments: Method: Temporal Pulse 110 /min Comments: Pattern: Regular Respiration Rate 18 /min Comments: Pattern: Unlabored O2 SAT 98 % Comments: Room air BP Systolic 142 mm[Hg] Comments: Patient Position: Sitting; Cuff Location: Left Arm; Cuff Size: Standard BP Diastolic 86 mm[Hg] Comments: Patient Position: Sitting; Cuff Location: Left Arm; Cuff Size: Standard Weight 144 lb Height 60.5 in Body Mass Index Calculated 27.66 kg/m2 Body Surface Area Calculated 1.63 m2 :21 Pulse 110 /min Comments: Pattern: Regular Respiration Rate 16 /min Comments: Pattern: Unlabored O2 SAT 98 % Comments: Room air BP Systolic 140 mm[Hg] Comments: Patient Position: Sitting; Cuff Location: Left Arm; Cuff Size: Standard BP Diastolic 80 mm[Hg] Comments: Patient Position: Sitting; Cuff Location: Left Arm; Cuff Size: Standard Weight 139 lb Height 60.5 in Body Mass Index Calculated 26.7 kg/m2 Body Surface Area Calculated 1.61 m2 :43 Temperature 97.9 f Comments: Method: Oral Pulse 76 /min Comments: Pattern: Regular Respiration Rate 18 /min Comments: Pattern: Unlabored BP Systolic 120 mm[Hg] Comments: Patient Position: Sitting; Cuff Location: Left Arm; Cuff Size: Standard BP Diastolic 76 mm[Hg] Comments: Patient Position: Sitting; Cuff Location: Left Arm; Cuff Size: Standard Weight 145 lb Height 60.5 in Body Mass Index Calculated 27.85 kg/m2 Body Surface Area Calculated 1.64 m2 :29 Temperature 96.6 f Comments: Method: Temporal Pulse 83 /min Comments: Pattern: Regular Respiration Rate 16 /min Comments: Pattern: Unlabored O2 SAT 96 % Comments: Room air BP Systolic 126 mm[Hg] Comments: Patient Position: Sitting; Cuff Location: Left Arm; Cuff Size: Standard BP Diastolic 74 mm[Hg] Comments: Patient Position: Sitting; Cuff Location: Left Arm; Cuff Size: Standard Weight 133.5 lb Height 60.5 in Body Mass Index Calculated 25.64 kg/m2 Body Surface Area Calculated 1.58 m2 :24 Weight 136.5625 lb Height 60.5 in Body Mass Index Calculated 26.23 kg/m2 Body Surface Area Calculated 1.6 m2 :03 Temperature 97.9 f Comments: Method: Oral Pulse 80 /min Comments: Pattern: Regular Respiration Rate 16 /min Comments: Pattern: Unlabored BP Systolic 112 mm[Hg] Comments: Patient Position: Sitting; Cuff Location: Left Arm; Cuff Size: Standard BP Diastolic 72 mm[Hg] Comments: Patient Position: Sitting; Cuff Location: Left Arm; Cuff Size: Standard Weight 136.5625 lb Height 60.5 in Body Mass Index Calculated 26.23 kg/m2 Body Surface Area Calculated 1.6 m2 :51 Pulse 110 /min Comments: Pattern: Regular Respiration Rate 18 /min Comments: Pattern: Unlabored O2 SAT 97 % Comments: Room air BP Systolic 132 mm[Hg] Comments: Patient Position: Sitting; Cuff Location: Left Arm; Cuff Size: Standard BP Diastolic 92 mm[Hg] Comments: Patient Position: Sitting; Cuff Location: Left Arm; Cuff Size: Standard Weight 136.5625 lb Height 60.5 in Body Mass Index Calculated 26.23 kg/m2 Body Surface Area Calculated 1.6 m2 :45 Temperature 97.2 f Comments: Method: Oral Pulse 72 /min Comments: Pattern: Regular Respiration Rate 20 /min Comments: Pattern: Unlabored BP Systolic 116 mm[Hg] Comments: Patient Position: Sitting; Cuff Location: Left Arm; Cuff Size: Standard BP Diastolic 74 mm[Hg] Comments: Patient Position: Sitting; Cuff Location: Left Arm; Cuff Size: Standard Weight 144 lb Height 60.5 in Body Mass Index Calculated 27.66 kg/m2 Body Surface Area Calculated 1.63 m2 :28 Temperature 98 f Comments: Method: Oral Pulse 70 /min Comments: Pattern: Regular Respiration Rate 18 /min Comments: Pattern: Unlabored BP Systolic 114 mm[Hg] Comments: Patient Position: Sitting; Cuff Location: Left Arm; Cuff Size: Standard BP Diastolic 76 mm[Hg] Comments: Patient Position: Sitting; Cuff Location: Left Arm; Cuff Size: Standard Weight 145.05 lb Height 60.5 in Body Mass Index Calculated 27.86 kg/m2 Body Surface Area Calculated 1.64 m2 :29 Temperature 97.8 f Comments: Method: Oral Pulse 95 /min Comments: Pattern: Regular Respiration Rate 18 /min Comments: Pattern: Unlabored BP Systolic 110 mm[Hg] Comments: Patient Position: Sitting; Cuff Location: Left Arm; Cuff Size: Standard BP Diastolic 70 mm[Hg] Comments: Patient Position: Sitting; Cuff Location: Left Arm; Cuff Size: Standard Weight 140.3125 lb :03 Temperature 97.9 f Comments: Method: Oral Pulse 96 /min Comments: Pattern: Regular Respiration Rate 18 /min Comments: Pattern: Unlabored BP Systolic 106 mm[Hg] Comments: Patient Position: Sitting; Cuff Location: Left Arm; Cuff Size: Standard BP Diastolic 72 mm[Hg] Comments: Patient Position: Sitting; Cuff Location: Left Arm; Cuff Size: Standard Weight 149 lb Height 60.5 in Body Mass Index Calculated 28.62 kg/m2 Body Surface Area Calculated 1.66 m2 :12 Temperature 97.6 f Comments: Method: Oral Pulse 76 /min Comments: Pattern: Regular Respiration Rate 18 /min Comments: Pattern: Unlabored BP Systolic 116 mm[Hg] Comments: Patient Position: Sitting; Cuff Location: Left Arm; Cuff Size: Standard BP Diastolic 72 mm[Hg] Comments: Patient Position: Sitting; Cuff Location: Left Arm; Cuff Size: Standard Weight 145 lb Height 61 in Body Mass Index Calculated 27.4 kg/m2 Body Surface Area Calculated 1.65 m2 :37 Temperature 97.6 f Comments: Method: Oral Pulse 74 /min Comments: Pattern: Regular Respiration Rate 18 /min Comments: Pattern: Unlabored BP Systolic 116 mm[Hg] Comments: Patient Position: Sitting; Cuff Location: Left Arm; Cuff Size: Standard BP Diastolic 74 mm[Hg] Comments: Patient Position: Sitting; Cuff Location: Left Arm; Cuff Size: Standard Weight 145 lb Height 61 in Body Mass Index Calculated 27.4 kg/m2 Body Surface Area Calculated 1.65 m2 :21 Temperature 97.8 f Comments: Method: Oral Pulse 88 /min Comments: Pattern: Regular Respiration Rate 16 /min Comments: Pattern: Unlabored BP Systolic 110 mm[Hg] Comments: Patient Position: Sitting; Cuff Location: Left Arm; Cuff Size: Standard BP Diastolic 72 mm[Hg] Comments: Patient Position: Sitting; Cuff Location: Left Arm; Cuff Size: Standard Weight 145 lb :36 Pulse 78 /min Comments: Pattern: Regular Respiration Rate 18 /min Comments: Pattern: Unlabored BP Systolic 108 mm[Hg] Comments: Patient Position: Sitting; Cuff Location: Left Arm; Cuff Size: Standard BP Diastolic 72 mm[Hg] Comments: Patient Position: Sitting; Cuff Location: Left Arm; Cuff Size: Standard Weight 135 lb :39 Pulse 68 /min Comments: Pattern: Regular Respiration Rate 16 /min Comments: Pattern: Unlabored BP Systolic 118 mm[Hg] Comments: Patient Position: Sitting; Cuff Location: Left Arm; Cuff Size: Standard BP Diastolic 78 mm[Hg] Comments: Patient Position: Sitting; Cuff Location: Left Arm; Cuff Size: Standard Weight 144 lb :32 Temperature 97.1 f Comments: Method: Oral Pulse 64 /min Comments: Pattern: Regular Respiration Rate 18 /min Comments: Pattern: Unlabored BP Systolic 116 mm[Hg] Comments: Patient Position: Sitting; Cuff Location: Left Arm; Cuff Size: Standard BP Diastolic 70 mm[Hg] Comments: Patient Position: Sitting; Cuff Location: Left Arm; Cuff Size: Standard Weight 139.375 lb Height 0 in Head Circumference 0.00 cm :08 Pulse 60 /min Comments: Pattern: Regular BP Systolic 116 mm[Hg] Comments: Patient Position: Supine; Cuff Location: Left Arm; Cuff Size: Standard BP Diastolic 78 mm[Hg] Comments: Patient Position: Supine; Cuff Location: Left Arm; Cuff Size: Standard Weight 0 lb Height 0 in Head Circumference 0.00 cm :08 Pulse 60 /min Comments: Pattern: Regular BP Systolic 114 mm[Hg] Comments: Patient Position: Sitting; Cuff Location: Left Arm; Cuff Size: Standard BP Diastolic 76 mm[Hg] Comments: Patient Position: Sitting; Cuff Location: Left Arm; Cuff Size: Standard Weight 0 lb Height 0 in Head Circumference 0.00 cm :08 Pulse 60 /min Comments: Pattern: Regular BP Systolic 118 mm[Hg] Comments: Patient Position: Sitting; Cuff Location: Left Arm; Cuff Size: Standard BP Diastolic 78 mm[Hg] Comments: Patient Position: Sitting; Cuff Location: Left Arm; Cuff Size: Standard Weight 0 lb Height 0 in Head Circumference 0.00 cm :42 Temperature 97.2 f Comments: Method: Oral Pulse 117 /min Comments: Pattern: Regular Respiration Rate 16 /min Comments: Pattern: Unlabored O2 SAT 97 % Comments: Room air BP Systolic 94 mm[Hg] Comments: Patient Position: Supine; Cuff Location: Left Arm; Cuff Size: Standard BP Diastolic 76 mm[Hg] Comments: Patient Position: Supine; Cuff Location: Left Arm; Cuff Size: Standard Weight 142 lb Height 61 in Body Mass Index Calculated 26.83 kg/m2 Body Surface Area Calculated 1.63 m2 Head Circumference 0.00 cm :28 Pulse 78 /min Comments: Pattern: Regular Respiration Rate 16 /min Comments: Pattern: Unlabored BP Systolic 120 mm[Hg] Comments: Patient Position: Sitting; Cuff Location: Left Arm; Cuff Size: Standard BP Diastolic 80 mm[Hg] Comments: Patient Position: Sitting; Cuff Location: Left Arm; Cuff Size: Standard Weight 144 lb Height 0 in Head Circumference 0.00 cm :58 Temperature 97.8 f Comments: Method: Oral Pulse 92 /min Comments: Pattern: Regular Respiration Rate 18 /min Comments: Pattern: Unlabored BP Systolic 116 mm[Hg] Comments: Patient Position: Sitting; Cuff Location: Left Arm; Cuff Size: Standard BP Diastolic 72 mm[Hg] Comments: Patient Position: Sitting; Cuff Location: Left Arm; Cuff Size: Standard Weight 0 lb Height 0 in Head Circumference 0.00 cm :44 Pulse 74 /min Comments: Pattern: Regular Respiration Rate 16 /min Comments: Pattern: Unlabored BP Systolic 126 mm[Hg] Comments: Patient Position: Sitting; Cuff Location: Left Arm; Cuff Size: Standard BP Diastolic 86 mm[Hg] Comments: Patient Position: Sitting; Cuff Location: Left Arm; Cuff Size: Standard Weight 128 lb Height 0 in Head Circumference 0.00 cm :21 Temperature 98.6 f Comments: Method: Oral Pulse 70 /min Comments: Pattern: Regular Respiration Rate 20 /min Comments: Pattern: Unlabored BP Systolic 116 mm[Hg] Comments: Patient Position: Sitting; Cuff Location: Left Arm; Cuff Size: Standard BP Diastolic 74 mm[Hg] Comments: Patient Position: Sitting; Cuff Location: Left Arm; Cuff Size: Standard Weight 136 lb Height 0 in Head Circumference 0.00 cm :58 Temperature 97.6 f Comments: Method: Oral Pulse 82 /min Comments: Pattern: Regular Respiration Rate 20 /min Comments: Pattern: Unlabored BP Systolic 116 mm[Hg] Comments: Patient Position: Sitting; Cuff Location: Left Arm; Cuff Size: Standard BP Diastolic 78 mm[Hg] Comments: Patient Position: Sitting; Cuff Location: Left Arm; Cuff Size: Standard Weight 137 lb Height 0 in Head Circumference 0.00 cm 13-Yqx-[id number]:40 Pulse 64 /min Comments: Pattern: Regular Respiration Rate 14 /min Comments: Pattern: Undefined BP Systolic 114 mm[Hg] Comments: Patient Position: Sitting; Cuff Location: Undefined; Cuff Size: Undefined BP Diastolic 76 mm[Hg] Comments: Patient Position: Sitting; Cuff Location: Undefined; Cuff Size: Undefined Weight 141.125 lb Height 0 in Head Circumference 0.00 cm Results Date Description Value Details [id number]-Oqj-[id number] Basic Metabolic Profile (BMP) Comments: [facility] [address] [place], [place], [id number] GAP 8 (Normal) Range: 5-15 CO2 24.0 mmol/L (Normal) Range: 21.0-32.0 CL 110 mmol/L (Abnormal) Range: 98-107 K 4.0 mmol/L (Normal) Range: 3.5-5.1 NA 142 mmol/L (Normal) Range: 136-145 CA 8.1 mg/dL (Abnormal) Range: 8.5-10.1 BUN/CRE 25.1 {RATIO} (Abnormal) Range: 10-20 Estimated CRCL 40.63 ml/min (Normal) EST GFR - AA 104 mL/min (Normal) Comments: GFR Calc EST GFR 86 mL/min (Normal) Comments: Non- GFR Calc CREAT,SERUM 0.72 mg/dL (Normal) Range: 0.55-1.02 Comments: The validity of the calculated GFR AND GFRAA in patients over70 years has not been determined. Clinical correlation isessential. BUN 18 mg/dL (Normal) Range: 7-18 GLU 78 mg/dL (Normal) Range: 74-106 Comments: Please note revised GLUCOSE reference range crknzazmv49/02/2018. 00-Dnu-035633:35 CBC W/Diff, Automated Comments: [facility] [address], [address] Absolute Lymph 0.62 {X10_3/ul} (Abnormal) Range: 0.83-4.51 Absolute Neut 4.7 {X10_3/uL} (Normal) Range: 2.0-7.7 IM GRAN % 0.200 % (Normal) Range: 0.0-0.9 Comments: IG% - Immature Granulocytes (promyelocytes, myelocytes andmetamyelocytes) > 1% indicates that a LEFT SHIFT is Present. BASO% 0.3 % (Normal) Range: 0-1 EO% 0.5 % (Normal) Range: 0-5 MONO% 9.0 % (Normal) Range: 0-10 LY% 10.5 % (Abnormal) Range: 19-41 NEUT% 79.5 % (Abnormal) Range: 47-70 MPV 9.1 fL (Normal) Range: 6.2-12.0 PLT 203 K/mm3 (Normal) Range: 150-450 RDW SD 47.6 fL (Abnormal) Range: 35.1-43.9 RDW CV 14.1 % (Normal) Range: 11.6-14.6 MCHC 32.1 {g/gl} (Normal) Range: 32-36 MCH 29.5 pg (Normal) Range: 27.0-32.0 MCV 92.0 fL (Normal) Range: 81-99 HCT 36.8 % (Abnormal) Range: 37-47 HGB 11.8 g/dL (Abnormal) Range: 12.0-15.0 RBC 4.00 {M/mm3} (Abnormal) Range: 4.2-5.4 WBC 5.9 K/mm3 (Normal) Range: 4.4-11.0 75-Xwh-[id number]:53 URINE EPIFANIO CULTURE-IDENTIFICATN Comments: PATIENT NOT FASTINGPERFORMED BY: [facility] Npqtqs9296 [facility] [id number] Information: SRC:FRANK (06373) Antimicrobial MIHEAD (Normal) Comments: S = Susceptible; I = Intermediate; R = Resistant P = Positive; N = Negative MICS are expressed in micrograms per mL Antibiotic RSLT#1 RSLT#2 RS Susceptibility LT#3 RSLT#4Amoxicillin/Clavulanic Acid SAmpicillin SCefepime SCeftriaxone SCefuroxime SCiprofloxacin RErtapenem SGentamicin SImipenem SLevofloxacin RMeropenem SNitrofurantoin SPipera cillin/Tazobactam STetracycline RTobramycin STrimethoprim/Sulfa S Result 1 Escherichia coli Comments: Greater than 100,000 colony forming units per mL (Abnormal) Urine Final report Culture,Comprehensive (Abnormal) 92-Ugs-141148:56 Urinalysis, Office (05578) UA - LEUKOCYTE ESTERASE Moderate (Normal) UA - NITRITE Positive (Normal) URINE UROBILINGN RONALD TIMED Normal mg/dL (Normal) UA - PROTEIN Negative mg/dL (Normal) UA - PH 6.5 (Normal) UA - BLOOD Non Hemolyzed Moderate (Normal) UA - SPECIFIC GRAVITY 1.020 (Normal) UA - KETONES Negative mg/dL (Normal) UA - BILIRUBIN Negative (Normal) UA - GLUCOSE Negative (Normal) 2-Cce-380914:25 Microscopic Examination Comments: PATIENT WAS FASTINGPERFORMED BY: [facility] [id number] Bacteria Many (Abnormal) Mucus Threads Present (Normal) Cast Type Hyaline casts (Normal) Casts Present {/lpf} (Abnormal) Epithelial Cells (non renal) 0-10 {/hpf} (Normal) Range: 0 - 10 RBC 0-2 {/hpf} (Normal) Range: 0 - 2 WBC >30 {/hpf} (Abnormal) Range: 0 - 5 3-Ksk-007722:25 MICROALBUMIN: CREATININE RATIO Comments: PATIENT WAS FASTINGPERFORMED BY: [facility] [id number] ([id number]) AND (07778) Alb/Creat Ratio 27.0 {mg/g_creat} (Normal) Range: 0.0-30.0 Albumin, Urine 33.5 ug/mL (Normal) Creatinine, Urine 124.3 mg/dL (Normal) 8-Jex-990962:25 URINALYSIS (85372) Comments: PATIENT WAS FASTINGPERFORMED BY: [facility] [id number] Microscopic Examination See below: (Normal) Comments: Microscopic was indicated and was performed. Nitrite, Urine Positive (Abnormal) Urobilinogen,Semi-Qn 0.2 mg/dL (Normal) Range: 0.2-1.0 Bilirubin Negative (Normal) Occult Blood 1+ (Abnormal) Ketones Negative (Normal) Glucose Negative (Normal) Protein Negative (Normal) WBC Esterase 2+ (Abnormal) Appearance Clear (Normal) Urine-Color Yellow (Normal) pH 5.0 (Normal) Range: 5.0-7.5 Specific Woodland 1.020 (Normal) Range: 1.005-1.030 2-Dbm-994541:25 TSH (93243) Comments: PATIENT WAS FASTINGPERFORMED BY: [facility]6370 [facility] [id number] TSH 1.210 {uIU/mL} (Normal) Range: 0.450-4.500 9-Qkj-112937:25 Metabolic Panel, Comprehensive Comments: PATIENT WAS FASTINGPERFORMED BY: [facility]6370 [facility] [id number] (81142) ALT (SGPT) 14 [iU]/L (Normal) Range: 0-32 AST (SGOT) 21 [iU]/L (Normal) Range: 0-40 Alkaline Phosphatase 58 [iU]/L (Normal) Range: 39-117 Bilirubin, Total 0.5 mg/dL (Normal) Range: 0.0-1.2 A/G Ratio 1.7 (Normal) Range: 1.2-2.2 Globulin, Total 2.6 g/dL (Normal) Range: 1.5-4.5 Albumin 4.3 g/dL (Normal) Range: 3.6-4.8 Protein, Total 6.9 g/dL (Normal) Range: 6.0-8.5 Calcium 9.9 mg/dL (Normal) Range: 8.7-10.3 Carbon Dioxide, Total 26 mmol/L (Normal) Range: 20-29 Comments: Please note reference interval change Chloride 102 mmol/L (Normal) Range: 96-106 Potassium 5.1 mmol/L (Normal) Range: 3.5-5.2 Sodium 141 mmol/L (Normal) Range: 134-144 BUN/Creatinine Ratio 17 (Normal) Range: 12-28 eGFR If Africn Am 73 mL/min/1.73 (Normal) eGFR If NonAfricn Am 63 mL/min/1.73 (Normal) Creatinine 0.93 mg/dL (Normal) Range: 0.57-1.00 BUN 16 mg/dL (Normal) Range: 8-27 Glucose 82 mg/dL (Normal) Range: 65-99 7-Pmu-130126:25 CBC & PLATELETS (AUTO) (57182) Comments: PATIENT WAS FASTINGPERFORMED BY: SimplilearnRobert Wood Johnson University HospitalNgkutx8959 [facility] [id number] Platelets 323 {x10E3/uL} (Normal) Range: 150-379 RDW 14.0 % (Normal) Range: 12.3-15.4 MCHC 34.0 g/dL (Normal) Range: 31.5-35.7 MCH 29.9 pg (Normal) Range: 26.6-33.0 MCV 88 fL (Normal) Range: 79-97 Hematocrit 40.0 % (Normal) Range: 34.0-46.6 Hemoglobin 13.6 g/dL (Normal) Range: 11.1-15.9 RBC 4.55 {x10E6/uL} (Normal) Range: 3.77-5.28 WBC 4.7 {x10E3/uL} (Normal) Range: 3.4-10.8 :25 LIPID PANEL (29510) Comments: PATIENT WAS FASTINGPERFORMED BY: SimplilearnRobert Wood Johnson University HospitalDxyooj7628 [facility] [id number] LDL/HDL Ratio 1.1 {ratio} (Normal) Range: 0.0-3.2 Comments: LDL/HDL Ratio Men Women 1/2 Avg.Risk 1.0 1.5 Av g.Risk 3.6 3.2 2X Avg.Risk 6.2 5.0 3X Avg.Risk 8.0 6.1 LDL Cholesterol Calc 81 mg/dL (Normal) Range: 0-99 VLDL Cholesterol Marysol 16 mg/dL (Normal) Range: 5-40 HDL Cholesterol 72 mg/dL (Normal) Triglycerides 78 mg/dL (Normal) Range: 0-149 Cholesterol, Total 169 mg/dL (Normal) Range: 100-199 7-Gnc-700035:13 Urinalysis, Office (30833) UA - LEUKOCYTE ESTERASE Negative (Normal) UA - NITRITE Negative (Normal) URINE UROBILINGN RONALD TIMED Normal mg/dL (Normal) UA - PROTEIN Negative mg/dL (Normal) UA - PH 6 (Abnormal) UA - BLOOD Hemolyzed Small (Normal) UA - SPECIFIC GRAVITY 1.025 (Normal) UA - KETONES Negative mg/dL (Normal) UA - BILIRUBIN Negative (Normal) UA - GLUCOSE Negative (Normal) :51 CBC & PLATELETS (AUTO) (65952) Comments: PATIENT NOT FASTINGPERFORMED BY: LabCoRobert Wood Johnson University HospitalMrzdcw3271 [facility] [id number] Platelets 291 {x10E3/uL} (Normal) Range: 150-379 RDW 13.8 % (Normal) Range: 12.3-15.4 MCHC 33.2 g/dL (Normal) Range: 31.5-35.7 MCH 29.7 pg (Normal) Range: 26.6-33.0 MCV 90 fL (Normal) Range: 79-97 Hematocrit 40.7 % (Normal) Range: 34.0-46.6 Hemoglobin 13.5 g/dL (Normal) Range: 11.1-15.9 RBC 4.54 {x10E6/uL} (Normal) Range: 3.77-5.28 WBC 5.7 {x10E3/uL} (Normal) Range: 3.4-10.8 :51 PARATHORMONE (05385) Comments: PATIENT NOT FASTINGPERFORMED BY: [facility] Cbltye6555 [facility] [id number] PTH, Intact 66 pg/mL (Abnormal) Range: 15-65 :00 Urinalysis, Office (50703) UA - LEUKOCYTE ESTERASE Trace (Normal) UA - NITRITE Negative (Normal) URINE UROBILINGN RONALD TIMED Normal mg/dL (Normal) UA - PROTEIN Trace mg/dL (Normal) UA - PH 6 (Abnormal) UA - BLOOD non-hemolyzed trace (Normal) UA - SPECIFIC GRAVITY 1.030 (Abnormal) UA - KETONES Negative mg/dL (Normal) UA - BILIRUBIN Small (Normal) UA - GLUCOSE Negative (Normal) :45 Urinalysis, Complete Comments: How was Urine Obtained? CLEAN [facility] [address] [place], [place], [id number] MUCUS, URINE 0 SEEN {/hpf} (Normal) BACTERIA 0 SEEN {/hpf} (Normal) SQUAM EPI 0 SEEN {/hpf} (Normal) Range: 5-10 RBC-UA 0 SEEN {/hpf} (Normal) Range: 0-5 WBC 0-5 SEEN {/hpf} (Normal) Range: 0-5 LEUK ESTERASE Negative /ul (Normal) OCCULT BLOOD-UR Negative /ul (Normal) NITRITE UR Negative (Normal) UROBILI Normal mg/dL (Normal) PROT DIPSTX Negative mg/dL (Normal) pH UR 7.0 (Normal) Range: 5.0 - 8.0 SP.GR. DIPSTX 1.010 (Normal) Range: 1.002-1.030 KETONE UR Negative mg/dL (Normal) BILIRUBIN URINE Negative mg/dL (Normal) GLUCOSE, UR Normal mg/dL (Normal) CLARITY Clear (Normal) COLOR Straw (Normal) 56-Xrn-44538:58 CBC W/Diff, Automated Comments: [facility] [address] [place], [place], [id number] Absolute Lymph 1.16 {X10_3/ul} (Normal) Range: 0.83-4.51 Absolute Neut 1.4 {X10_3/uL} (Abnormal) Range: 2.0-7.7 IM GRAN % 0.000 % (Normal) Range: 0.0-0.9 Comments: IG% - Immature Granulocytes (promyelocytes, myelocytes andmetamyelocytes) > 1% indicates that a LEFT SHIFT is Present. BASO% 0.6 % (Normal) Range: 0-1 EO% 2.5 % (Normal) Range: 0-5 MONO% 15.8 % (Abnormal) Range: 0-10 LY% 36.7 % (Normal) Range: 19-41 NEUT% 44.4 % (Abnormal) Range: 47-70 MPV 9.7 fL (Normal) Range: 6.2-12.0 PLT 205 K/mm3 (Normal) Range: 150-450 RDW SD 43.7 fL (Normal) Range: 35.1-43.9 RDW CV 13.1 % (Normal) Range: 11.6-14.6 MCHC 32.2 {g/gl} (Normal) Range: 32-36 MCH 29.7 pg (Normal) Range: 27.0-32.0 MCV 92.0 fL (Normal) Range: 81-99 HCT 42.5 % (Normal) Range: 37-47 HGB 13.7 g/dL (Normal) Range: 12.0-15.0 RBC 4.62 {M/mm3} (Normal) Range: 4.2-5.4 WBC 3.2 K/mm3 (Abnormal) Range: 4.4-11.0 20-Vgv-75852:58 Comprehensive Metabolic Profil Comments: [facility] [address], [address] GAP 8 (Normal) Range: 5-15 CO2 28.0 mmol/L (Normal) Range: 21.0-32.0 CL 104 mmol/L (Normal) Range: 98-107 K 4.0 mmol/L (Normal) Range: 3.5-5.1 NA 140 mmol/L (Normal) Range: 136-145 T BILI 0.90 mg/dL (Normal) Range: 0.20-1.00 ALT 25 U/L (Normal) Range: 13-56 Comments: Please note revised ALT reference range jadpubcid72/28/2018. ALK P 66 U/L (Normal) Range: 45-117 AST 25 U/L (Normal) Range: 15-37 CA 9.0 mg/dL (Normal) Range: 8.5-10.1 A/G 0.8 {RATIO} (Abnormal) Range: 0.9-2.4 GLOB 3.9 g/dL (Normal) Range: 2.2-4.2 ALB 3.3 g/dL (Normal) Range: 3.2-5.0 T PROT 7.2 g/dL (Normal) Range: 6.4-8.2 BUN/CRE 20.8 {RATIO} (Abnormal) Range: 10-20 Estimated CRCL 40.63 ml/min (Normal) EST GFR - AA 96 mL/min (Normal) Comments: GFR Calc EST GFR 79 mL/min (Normal) Comments: Non- GFR Calc CREAT,SERUM 0.77 mg/dL (Normal) Range: 0.55-1.02 Comments: The validity of the calculated GFR AND GFRAA in patients over70 years has not been determined. Clinical correlation isessential. BUN 16 mg/dL (Normal) Range: 7-18 GLU 96 mg/dL (Normal) Range: 70-110 73-Srk-92133:58 Lipase Comments: [facility] [address] [place], [address] LIPASE 211 U/L (Normal) Range: 73-393 5-Shu-442959:30 MICROALBUMIN: CREATININE RATIO Comments: PATIENT NOT FASTINGPERFORMED BY: [address] [id number] (18619) AND (04118) Microalb/Creat Ratio 3.2 {mg/g_creat} (Normal) Range: 0.0-30.0 Microalbumin, Urine 4.7 ug/mL (Normal) Creatinine, Urine 145.6 mg/dL (Normal) 9-Gsb-864126:30 URINALYSIS (13191) Comments: PATIENT NOT FASTINGPERFORMED BY: [address] [id number] Microscopic Examination MICNIP (Normal) Comments: Microscopic not indicated and not performed. Nitrite, Urine Negative (Normal) Urobilinogen,Semi-Qn 0.2 mg/dL (Normal) Range: 0.2-1.0 Bilirubin Negative (Normal) Occult Blood Negative (Normal) Ketones Trace (Abnormal) Glucose Negative (Normal) Protein Negative (Normal) WBC Esterase Negative (Normal) Appearance Clear (Normal) Urine-Color Yellow (Normal) pH 5.5 (Normal) Range: 5.0-7.5 Specific [place] 1.022 (Normal) Range: 1.005-1.030 1-Rpl-083352:30 TSH (THYROID STIMULATING Comments: PATIENT NOT FASTINGPERFORMED BY: [facility]6370 [facility] [id number] HORMONE) (21492) TSH 0.801 {uIU/mL} (Normal) Range: 0.450-4.500 9-Euv-836257:30 CBC, PLATELETS & AUT DIFF Comments: PATIENT NOT FASTINGPERFORMED BY: [address] [id number] Information: [id number], [id number] (13110) Immature Grans (Abs) 0.0 {x10E3/uL} (Normal) Range: 0.0-0.1 Immature Granulocytes 0 % (Normal) Baso (Absolute) 0.0 {x10E3/uL} (Normal) Range: 0.0-0.2 Eos (Absolute) 0.1 {x10E3/uL} (Normal) Range: 0.0-0.4 Monocytes(Absolute) 0.5 {x10E3/uL} (Normal) Range: 0.1-0.9 Lymphs (Absolute) 1.1 {x10E3/uL} (Normal) Range: 0.7-3.1 Neutrophils (Absolute) 3.9 {x10E3/uL} (Normal) Range: 1.4-7.0 Basos 1 % (Normal) Eos 1 % (Normal) Monocytes 8 % (Normal) Lymphs 20 % (Normal) Neutrophils 70 % (Normal) Platelets 272 {x10E3/uL} (Normal) Range: 150-379 RDW 15.3 % (Normal) Range: 12.3-15.4 MCHC 32.2 g/dL (Normal) Range: 31.5-35.7 MCH 28.9 pg (Normal) Range: 26.6-33.0 MCV 90 fL (Normal) Range: 79-97 Hematocrit 42.5 % (Normal) Range: 34.0-46.6 Hemoglobin 13.7 g/dL (Normal) Range: 11.1-15.9 RBC 4.74 {x10E6/uL} (Normal) Range: 3.77-5.28 WBC 5.6 {x10E3/uL} (Normal) Range: 3.4-10.8 1-Vkg-481697:30 METABOLIC PANEL, COMPREHENSIVE Comments: PATIENT NOT FASTINGPERFORMED BY: LabCoRobert Wood Johnson University HospitalVfqgsb2319 [facility] [id number] (32353) ALT (SGPT) 14 [iU]/L (Normal) Range: 0-32 AST (SGOT) 20 [iU]/L (Normal) Range: 0-40 Alkaline Phosphatase, S 72 [iU]/L (Normal) Range: 39-117 Bilirubin, Total 0.7 mg/dL (Normal) Range: 0.0-1.2 A/G Ratio 1.8 (Normal) Range: 1.2-2.2 Globulin, Total 2.5 g/dL (Normal) Range: 1.5-4.5 Albumin, Serum 4.4 g/dL (Normal) Range: 3.6-4.8 Protein, Total, Serum 6.9 g/dL (Normal) Range: 6.0-8.5 Calcium, Serum 10.0 mg/dL (Normal) Range: 8.7-10.3 Carbon Dioxide, Total 26 mmol/L (Normal) Range: 18-29 Chloride, Serum 103 mmol/L (Normal) Range: 96-106 Potassium, Serum 5.2 mmol/L (Normal) Range: 3.5-5.2 Sodium, Serum 145 mmol/L (Abnormal) Range: 134-144 BUN/Creatinine Ratio 21 (Normal) Range: 12-28 eGFR If Africn Am 87 mL/min/1.73 (Normal) eGFR If NonAfricn Am 75 mL/min/1.73 (Normal) Creatinine, Serum 0.81 mg/dL (Normal) Range: 0.57-1.00 BUN 17 mg/dL (Normal) Range: 8-27 Glucose, Serum 96 mg/dL (Normal) Range: 65-99 88-Kyu-503631:37 Lipid Panel (73588) Comments: around April 2017; PATIENT WAS FASTINGPERFORMED BY: LabCoRobert Wood Johnson University HospitalNpeofm0737 [facility] [id number] LDL/HDL Ratio 1.1 {ratio_units} (Normal) Range: 0.0-3.2 Comments: LDL/HDL Ratio Men Women 1/2 Avg.Risk 1.0 1.5 Av g.Risk 3.6 3.2 2X Avg.Risk 6.2 5.0 3X Avg.Risk 8.0 6.1 LDL Cholesterol Calc 77 mg/dL (Normal) Range: 0-99 VLDL Cholesterol Marysol 23 mg/dL (Normal) Range: 5-40 HDL Cholesterol 72 mg/dL (Normal) Triglycerides 116 mg/dL (Normal) Range: 0-149 Cholesterol, Total 172 mg/dL (Normal) Range: 100-199 51-Clr-564107:37 POTASSIUM SERUM (32375) Comments: Order Date: 02/13/17Order Info: [id number] - Brittnee Date: 02/13/17Order Info: 2823-3 - [facility] [address] [place], [place], [address] K 4.1 mmol/L (Normal) Range: 3.5-5.1 11-Dry-591905:20 Microscopic Examination Comments: PATIENT WAS FASTINGPERFORMED BY: LabCoRobert Wood Johnson University HospitalHainmg5162 [facility] [id number] Bacteria None seen (Normal) Mucus Threads Present (Normal) Epithelial Cells (non renal) 0-10 {/hpf} (Normal) Range: 0 - 10 RBC None seen {/hpf} (Normal) Range: 0 - 2 WBC 0-5 {/hpf} (Normal) Range: 0 - 5 95-Shj-173260:20 METABOLIC PANEL, COMPREHENSIVE Comments: PATIENT WAS FASTINGPERFORMED BY: LabCoRobert Wood Johnson University HospitalKnwbrg5921 [facility] [id number] (62040) ALT (SGPT) 17 [iU]/L (Normal) Range: 0-32 AST (SGOT) 22 [iU]/L (Normal) Range: 0-40 Alkaline Phosphatase, S 78 [iU]/L (Normal) Range: 39-117 Bilirubin, Total 0.5 mg/dL (Normal) Range: 0.0-1.2 A/G Ratio 1.8 (Normal) Range: 1.2-2.2 Comments: Please note reference interval change Globulin, Total 2.6 g/dL (Normal) Range: 1.5-4.5 Albumin, Serum 4.6 g/dL (Normal) Range: 3.6-4.8 Protein, Total, Serum 7.2 g/dL (Normal) Range: 6.0-8.5 Calcium, Serum 10.2 mg/dL (Normal) Range: 8.7-10.3 Carbon Dioxide, Total 24 mmol/L (Normal) Range: 18-29 Chloride, Serum 101 mmol/L (Normal) Range: 96-106 Potassium, Serum 5.7 mmol/L (Abnormal) Range: 3.5-5.2 Comments: Client Requested Flag Sodium, Serum 141 mmol/L (Normal) Range: 134-144 BUN/Creatinine Ratio 29 (Abnormal) Range: 11-26 eGFR If Africn Am 88 mL/min/1.73 (Normal) eGFR If NonAfricn Am 77 mL/min/1.73 (Normal) Creatinine, Serum 0.80 mg/dL (Normal) Range: 0.57-1.00 BUN 23 mg/dL (Normal) Range: 8-27 Glucose, Serum 81 mg/dL (Normal) Range: 65-99 50-Bpr-924258:20 URINALYSIS, W/ MICRO (70247) Comments: PATIENT WAS FASTINGPERFORMED BY: [employer]70 [facility] [id number] Microscopic Examination See below: (Normal) Comments: Microscopic was indicated and was performed. Microscopic Examination MICRON (Normal) Comments: Microscopic follows if indicated. Nitrite, Urine Negative (Normal) Urobilinogen,Semi-Qn 0.2 mg/dL (Normal) Range: 0.2-1.0 Bilirubin Negative (Normal) Occult Blood Negative (Normal) Ketones Negative (Normal) Glucose Negative (Normal) Protein Negative (Normal) WBC Esterase Negative (Normal) Appearance Clear (Normal) Urine-Color Yellow (Normal) pH 6.5 (Normal) Range: 5.0-7.5 Specific [place] 1.013 (Normal) Range: 1.005-1.030 01-Bac-564644:20 CBC with auto diff (85140) Comments: PATIENT WAS FASTINGPERFORMED BY: [employer]6370 [facility] [id number] Immature Grans (Abs) 0.0 {x10E3/uL} (Normal) Range: 0.0-0.1 Immature Granulocytes 0 % (Normal) Baso (Absolute) 0.0 {x10E3/uL} (Normal) Range: 0.0-0.2 Eos (Absolute) 0.1 {x10E3/uL} (Normal) Range: 0.0-0.4 Monocytes(Absolute) 0.5 {x10E3/uL} (Normal) Range: 0.1-0.9 Lymphs (Absolute) 1.2 {x10E3/uL} (Normal) Range: 0.7-3.1 Neutrophils (Absolute) 4.3 {x10E3/uL} (Normal) Range: 1.4-7.0 Basos 1 % (Normal) Eos 1 % (Normal) Monocytes 8 % (Normal) Lymphs 20 % (Normal) Neutrophils 70 % (Normal) Platelets 303 {x10E3/uL} (Normal) Range: 150-379 RDW 13.7 % (Normal) Range: 12.3-15.4 MCHC 32.5 g/dL (Normal) Range: 31.5-35.7 MCH 29.3 pg (Normal) Range: 26.6-33.0 MCV 90 fL (Normal) Range: 79-97 Hematocrit 42.1 % (Normal) Range: 34.0-46.6 Hemoglobin 13.7 g/dL (Normal) Range: 11.1-15.9 RBC 4.67 {x10E6/uL} (Normal) Range: 3.77-5.28 WBC 6.1 {x10E3/uL} (Normal) Range: 3.4-10.8 :20 TSH (15332) Comments: PATIENT WAS FASTINGPERFORMED BY: SimplilearnRobert Wood Johnson University HospitalBmzfpz2678 [facility] [id number] TSH 0.689 {uIU/mL} (Normal) Range: 0.450-4.500 :20 MICROALBUMIN: CREATININE RATIO Comments: PATIENT WAS FASTINGPERFORMED BY: [facility]PrimeM[facility]6370 [facility] [id number] (61066) AND (99689) Microalb/Creat Ratio <6.5 {mg/g_creat} (Normal) Range: 0.0-30.0 Microalbumin, Urine <3.0 ug/mL (Normal) Creatinine, Urine 46.2 mg/dL (Normal) :40 HEPATIC FUNCTION PANEL Comments: PATIENT WAS FASTINGPERFORMED BY: SimplilearnRobert Wood Johnson University HospitalJuvymv8120 [facility] [id number] (76686) ALT (SGPT) 38 [iU]/L (Abnormal) Range: 0-32 AST (SGOT) 35 [iU]/L (Normal) Range: 0-40 Alkaline Phosphatase, S 65 [iU]/L (Normal) Range: 39-117 Bilirubin, Direct 0.14 mg/dL (Normal) Range: 0.00-0.40 Bilirubin, Total 0.4 mg/dL (Normal) Range: 0.0-1.2 Albumin, Serum 4.3 g/dL (Normal) Range: 3.6-4.8 Protein, Total, Serum 6.8 g/dL (Normal) Range: 6.0-8.5 :40 LIPID PANEL (41917) Comments: PATIENT WAS FASTINGPERFORMED BY: [facility] Vkbxlc5769 [facility] [id number] LDL/HDL Ratio 1.2 {ratio_units} (Normal) Range: 0.0-3.2 Comments: LDL/HDL Ratio Men Women 1/2 Avg.Risk 1.0 1.5 Av g.Risk 3.6 3.2 2X Avg.Risk 6.2 5.0 3X Avg.Risk 8.0 6.1 LDL Cholesterol Calc 84 mg/dL (Normal) Range: 0-99 VLDL Cholesterol Marysol 20 mg/dL (Normal) Range: 5-40 HDL Cholesterol 73 mg/dL (Normal) Triglycerides 98 mg/dL (Normal) Range: 0-149 Cholesterol, Total 177 mg/dL (Normal) Range: 100-199 [id number] Culture, Urine Comments: [facility] [id number] [place], [address] CUUR See Note (Normal) Comments: Urine CultureRESULTS CALLED TO PAXTON 08/31/16 0934 Tamera Ram. REPORT READ BACK BY SAME. ORGANISM 1: Presumptive E. coliColony Count >100,000Result Comment ES BL producing Organism Presumptive E. coli: REACTION Amoxacillin/Clavulanic Acid $ 4 S Ampicillin $ >=32 R Ampicillin/ Sulbactam $ 4 S Cefazolin $ >=64 R Cefepime $ 2 R Ceftriaxone $ >=64 R Ciprofloxacin $ >=4 R ESBL + Ertapenim $$$ <=0.5 S Gentamicin $ < =1 S Imipenem *NF <=0.25 S Levofloxacin $ >=8 R Nitrofurantoin $ <=16 S Piperacillin/Tazobact am $$ <=4 S Tobramycin $ <=1 S Trimethoprim/Sulfametho $ >=320 R(NF) indicates non- formulary drug at [facility]. Approval by Infectious Disease Specialist required before non-formulary drugs may be ordered and/or dispensed. [id number] Urinalysis, Office (19332) UA - LEUKOCYTE ESTERASE Trace (Normal) UA - NITRITE Positive (Normal) URINE UROBILINGN RONALD TIMED Normal mg/dL (Normal) UA - PROTEIN Negative mg/dL (Normal) UA - PH 6 (Abnormal) UA - BLOOD Hemolyzed Small (Normal) UA - SPECIFIC GRAVITY 1.025 (Normal) UA - KETONES Negative mg/dL (Normal) UA - BILIRUBIN Negative (Normal) UA - GLUCOSE Negative (Normal) [id number] CBC, Platelets & Auto Comments: PATIENT WAS FASTINGPERFORMED BY: [facility] [id number] Information: [id number] Diff (70052) Immature Grans (Abs) 0.0 {x10E3/uL} (Normal) Range: 0.0-0.1 Immature Granulocytes 0 % (Normal) Baso (Absolute) 0.1 {x10E3/uL} (Normal) Range: 0.0-0.2 Eos (Absolute) 0.1 {x10E3/uL} (Normal) Range: 0.0-0.4 Monocytes(Absolute) 0.6 {x10E3/uL} (Normal) Range: 0.1-0.9 Lymphs (Absolute) 1.1 {x10E3/uL} (Normal) Range: 0.7-3.1 Neutrophils (Absolute) 5.3 {x10E3/uL} (Normal) Range: 1.4-7.0 Basos 1 % (Normal) Eos 1 % (Normal) Monocytes 9 % (Normal) Lymphs 15 % (Normal) Neutrophils 74 % (Normal) Platelets 313 {x10E3/uL} (Normal) Range: 150-379 RDW 14.1 % (Normal) Range: 12.3-15.4 MCHC 33.0 g/dL (Normal) Range: 31.5-35.7 MCH 29.4 pg (Normal) Range: 26.6-33.0 MCV 89 fL (Normal) Range: 79-97 Hematocrit 41.8 % (Normal) Range: 34.0-46.6 Hemoglobin 13.8 g/dL (Normal) Range: 11.1-15.9 RBC 4.70 {x10E6/uL} (Normal) Range: 3.77-5.28 WBC 7.2 {x10E3/uL} (Normal) Range: 3.4-10.8 25-Xzp-547685:13 TSH ([id number]) Comments: PATIENT WAS FASTINGPERFORMED BY: [facility] [id number] TSH 0.907 {uIU/mL} (Normal) Range: 0.450-4.500 74-Qry-174644:13 Lipid Panel ([id number]) Comments: PATIENT WAS FASTINGPERFORMED BY: [facility] [id number] LDL/HDL Ratio 2.2 {ratio_units} (Normal) Range: 0.0-3.2 Comments: LDL/HDL Ratio Men Women 1/2 Avg.Risk 1.0 1.5 Av g.Risk 3.6 3.2 2X Avg.Risk 6.2 5.0 3X Avg.Risk 8.0 6.1 LDL Cholesterol Calc 161 mg/dL (Abnormal) Range: 0-99 VLDL Cholesterol Marysol 19 mg/dL (Normal) Range: 5-40 HDL Cholesterol 73 mg/dL (Normal) Comments: According to ATP-III Guidelines, HDL-C >59 mg/dL is considered anegative risk factor for CHD. Triglycerides 94 mg/dL (Normal) Range: 0-149 Cholesterol, Total 253 mg/dL (Abnormal) Range: 100-199 93-Zni-697777:13 Metabolic Panel, Comprehensive Comments: PATIENT WAS FASTINGPERFORMED BY: [facility] [id number] ([id number]) ALT (SGPT) 25 [iU]/L (Normal) Range: 0-32 AST (SGOT) 27 [iU]/L (Normal) Range: 0-40 Alkaline Phosphatase, S 66 [iU]/L (Normal) Range: 39-117 Bilirubin, Total 0.5 mg/dL (Normal) Range: 0.0-1.2 A/G Ratio 1.6 (Normal) Range: 1.1-2.5 Globulin, Total 2.8 g/dL (Normal) Range: 1.5-4.5 Albumin, Serum 4.4 g/dL (Normal) Range: 3.6-4.8 Protein, Total, Serum 7.2 g/dL (Normal) Range: 6.0-8.5 Calcium, Serum 9.6 mg/dL (Normal) Range: 8.7-10.3 Carbon Dioxide, Total 22 mmol/L (Normal) Range: 18-29 Chloride, Serum 102 mmol/L (Normal) Range: 97-108 Potassium, Serum 4.2 mmol/L (Normal) Range: 3.5-5.2 Sodium, Serum 142 mmol/L (Normal) Range: 134-144 BUN/Creatinine Ratio 24 (Normal) Range: 11-26 eGFR If Africn Am 84 mL/min/1.73 (Normal) eGFR If NonAfricn Am 73 mL/min/1.73 (Normal) Creatinine, Serum 0.84 mg/dL (Normal) Range: 0.57-1.00 BUN 20 mg/dL (Normal) Range: 8-27 Glucose, Serum 92 mg/dL (Normal) Range: 65-99 48-Oaz-339642:58 URINE EPIFANIO CULTURE-RONALD COL Comments: Forward to Dr Eduardo, Urology, [place], [place]; PATIENT NOT FASTINGPERFORMED BY: [employer] [facility] Ialxls[address] [place] [id number] Information: SRC:URC [id number] COUNT ([id number]) Result 1 MUG (Normal) Comments: Mixed urogenital flora5,000 Colonies/mL Urine Culture,Comprehensive Final report (Normal) 55-Dbt-195212:55 Urinalysis, Office (40170) UA - GLUCOSE Negative (Normal) UA - BILIRUBIN Negative (Normal) UA - KETONES Negative mg/dL (Normal) UA - SPECIFIC GRAVITY 1.025 (Normal) UA - BLOOD Hemolyzed Trace (Normal) UA - PH 6 (Abnormal) UA - PROTEIN Negative mg/dL (Normal) URINE UROBILINGN RONALD TIMED Normal mg/dL (Normal) UA - NITRITE Negative (Normal) UA - LEUKOCYTE ESTERASE Negative (Normal) 0-Sap-387120:01 Vitamin D Hydroxy (87654) Comments: PATIENT NOT FASTINGPERFORMED BY: [employer] [facility] Bqiwsv9640 K[address] Hospitalityin [place] [id number] Vitamin D, 25-Hydroxy 33.2 ng/mL (Normal) Range: 30.0-100.0 Comments: Vitamin D deficiency has been defined by the [place] of[place]icine and an Endocrine Society practice guideline as alevel of serum 25-OH vitamin D less than 20 ng/mL (1,2).The Endocrine Society went on to further define vitamin Dinsufficiency as a level between 21 and 29 ng/mL (2).1. IOM ([place] of Medicine). 2010. Dietary reference intakes for calcium and D. [place]: The National Academies Press.2. Mica MF, Dami LION, Sheri CHAVEZ, et al. Evaluation, treatment, and prevention of vitamin D deficiency: an Endocrine Society clinical practice guideline. JCEM. 2010; 96(7):1911-30. :01 SPEP (34414) Comments: PATIENT NOT FASTINGPERFORMED BY: [facility] Vuizgv8516 Rolon RoadLOAGblin [place] [id number] Information: [id number] Please note: SPRCS (Normal) Comments: Protein electrophoresis scan will follow via computer, mail, orcourier delivery. A/G Ratio 1.3 (Normal) Range: 0.7-2.0 Globulin, Total 3.2 g/dL (Normal) Range: 2.0-4.5 M-Faisal Not Observed g/dL (Normal) Gamma Globulin 1.1 g/dL (Normal) Range: 0.5-1.6 Beta Globulin 1.1 g/dL (Normal) Range: 0.6-1.3 Rotmr-4-Aargtakl 0.8 g/dL (Normal) Range: 0.4-1.2 Riomj-3-Xcbvaddg 0.3 g/dL (Normal) Range: 0.1-0.4 Albumin 4.2 g/dL (Normal) Range: 3.2-5.6 Protein, Total, Serum 7.4 g/dL (Normal) Range: 6.0-8.5 :01 TSH (07777) Comments: PATIENT NOT FASTINGPERFORMED BY: [facility] Dusfxl6[address] Rolon RoadDublin [place] [id number] TSH 0.956 {uIU/mL} (Normal) Range: 0.450-4.500 :01 PARATHORMONE (38577) Comments: PATIENT NOT FASTINGPERFORMED BY: [facility] Dcaumb9293 Rolon RoadDublin [place] [id number] PTH, Intact 53 pg/mL (Normal) Range: 15-65 :01 SED RATE ERYTHROCYTE (64295) Comments: PATIENT NOT FASTINGPERFORMED BY: [facility] [facility] [id number] Sedimentation Rate-Westergren 6 mm/h (Normal) Range: 0-40 :01 ALKALINE PHOSPHATASE (63428) Comments: PATIENT NOT FASTINGPERFORMED BY: [facility] [facility] [id number] Alkaline Phosphatase, S 75 [iU]/L (Normal) Range: 39-117 :01 C-REACTIVE PROTEIN (72022) Comments: PATIENT NOT FASTINGPERFORMED BY: [facility] [id number] C-Reactive Protein, Quant 1.5 mg/L (Normal) Range: 0.0-4.9 :10 Urinalysis, Complete Comments: Order Date: 07/26/15How was Urine Obtained? CLEAN CATCHTest performed at:[facility] [address] [place] [address] MUCUS, URINE 0 SEEN {/hpf} (Normal) BACTERIA 0 SEEN {/hpf} (Normal) SQUAM EPI 0-5 SEEN {/hpf} (Normal) Range: 5-10 RBC-UA 0 SEEN {/hpf} (Normal) Range: 0-5 WBC 0-5 SEEN {/hpf} (Normal) Range: 0-5 LEUK ESTERASE 100 /ul (Abnormal) OCCULT BLOOD-UR Negative /ul (Normal) NITRITE UR Negative (Normal) UROBILI Normal mg/dL (Normal) PROT DIPSTX Negative mg/dL (Normal) pH UR 6.0 (Normal) Range: 5.0 - 8.0 SP.GR. DIPSTX 1.015 (Normal) Range: 1.002-1.030 KETONE UR Negative mg/dL (Normal) BILIRUBIN URINE Negative mg/dL (Normal) GLUCOSE, UR Normal mg/dL (Normal) CLARITY Clear (Normal) COLOR Yellow (Normal) :26 Basic Metabolic Profile (BMP) Comments: Test performed at:[facility] [address] [place] [address] GAP 6 (Normal) Range: 5-15 CO2 26.0 mmol/L (Normal) Range: 21.0-32.0 CL 103 mmol/L (Normal) Range: 98-107 K 4.1 mmol/L (Normal) Range: 3.5-5.1 NA 135 mmol/L (Abnormal) Range: 136-145 CA 9.1 mg/dL (Normal) Range: 8.5-10.1 BUN/CRE 23.8 {RATIO} (Abnormal) Range: 10-20 Estimated CRCL 39.89 ml/min (Normal) EST GFR - AA 70 mL/min (Normal) EST GFR 58 mL/min (Abnormal) CREAT,SERUM 1.01 mg/dL (Normal) Range: 0.55-1.20 Comments: Please note revised CREATININE reference range idbvxpddy35/22/2015. BUN 24 mg/dL (Abnormal) Range: 7-18 GLU 91 mg/dL (Normal) Range: 70-110 08-Pfz-645774:26 CBC W/Diff, Automated Comments: Test performed at:[facility] [address] [address] Absolute Lymph 1.55 {X10_3/ul} (Normal) Range: 0.83-4.51 Absolute Neut 4.3 {X10_3/uL} (Normal) Range: 2.0-7.7 IM GRAN % 0.100 % (Normal) Range: 0.0-0.9 Comments: IG% - Immature Granulocytes (promyelocytes, myelocytes andmetamyelocytes) > 1% indicates that a LEFT SHIFT is Present. BASO% 0.9 % (Normal) Range: 0-1 EO% 1.5 % (Normal) Range: 0-5 MONO% 10.5 % (Abnormal) Range: 0-10 LY% 23.2 % (Normal) Range: 19-41 NEUT% 63.8 % (Normal) Range: 47-70 MPV 9.5 fL (Normal) Range: 6.2-12.0 PLT 305 K/mm3 (Normal) Range: 150-450 RDW SD 44.6 fL (Abnormal) Range: 35.1-43.9 RDW CV 13.5 % (Normal) Range: 11.6-14.6 MCHC 33.3 {g/gl} (Normal) Range: 32-36 MCH 30.5 pg (Normal) Range: 27.0-32.0 MCV 91.7 fL (Normal) Range: 81-99 HCT 42.1 % (Normal) Range: 37-47 HGB 14.0 g/dL (Normal) Range: 12.0-15.0 RBC 4.59 {M/mm3} (Normal) Range: 4.2-5.4 WBC 6.7 K/mm3 (Normal) Range: 4.4-11.0 :19 Hepatic Function Panel (7) Comments: PATIENT WAS FASTINGPERFORMED BY: [facility]ityRobert [facility] HospitalNornvy[facility] [id number] ALT (SGPT) 17 [iU]/L (Normal) Range: 0-32 AST (SGOT) 24 [iU]/L (Normal) Range: 0-40 Alkaline Phosphatase, S 63 [iU]/L (Normal) Range: 39-117 Bilirubin, Direct 0.16 mg/dL (Normal) Range: 0.00-0.40 Bilirubin, Total 0.7 mg/dL (Normal) Range: 0.0-1.2 Albumin, Serum 4.6 g/dL (Normal) Range: 3.6-4.8 Protein, Total, Serum 7.2 g/dL (Normal) Range: 6.0-8.5 :19 Lipid Panel With LDL/HDL Comments: PATIENT WAS FASTINGPERFORMED BY: SimplilearnRobert Wood Johnson University HospitalBrzxmr9777 [facility] [id number] Information: [id number] Ratio LDL/HDL Ratio 2.6 {ratio_units} (Normal) Range: 0.0-3.2 Comments: LDL/HDL Ratio Men Women 1/2 Avg.Risk 1.0 1.5 Av g.Risk 3.6 3.2 2X Avg.Risk 6.2 5.0 3X Avg.Risk 8.0 6.1 LDL Cholesterol Calc 170 mg/dL (Abnormal) Range: 0-99 VLDL Cholesterol Marysol 22 mg/dL (Normal) Range: 5-40 HDL Cholesterol 65 mg/dL (Normal) Comments: According to ATP-III Guidelines, HDL-C >59 mg/dL is considered anegative risk factor for CHD. Triglycerides 108 mg/dL (Normal) Range: 0-149 Cholesterol, Total 257 mg/dL (Abnormal) Range: 100-199 17-Jmc-139443:14 Culture, Urine Comments: Test performed at:[facility] [address] [place] [address] CUUR See Note (Normal) Comments: Urine CultureORGANISM 1: Klebsiella pneumoniae sp pneumColony Count >100,000 Klebsiella pneumoniae sp pneum: REACTION Amoxacillin/Clavulanic Acid $ <=2 S Ampicillin $ >=32 R Ampicillin/Sulbactam $ 8 S Cefazolin $ <=4 S Cefepime $ <=1 S Ceftriaxone $ <=1 S Ciprofloxacin $ <=0.25 S ESBL - Ertapenim $$$ <=0.5 S Gentamicin $ <=1 S Imipenem *NF <=0.25 S Levofloxacin $ <=0.12 S Nitrofurantoin $ 64 I Piperacillin/Tazobactam $$ <=4 S Tobramycin $ <=1 S Trimethoprim/Sulfametho $ <=20 S(NF) indicates non-formulary drug at [facility]. Approval by Infectious Disease Specialist required before non- formulary drugs may be ordered and/or dispensed. 66-Nep-059246:14 Urinalysis, Routine (Dipstick) Comments: How was Urine Obtained? CLEAN CATCHTest performed at:[facility] [address] [place] [address] LEUK ESTERASE 100 /ul (Abnormal) OCCULT BLOOD-UR 10 /ul (Abnormal) NITRITE UR Positive (Abnormal) UROBILI Normal mg/dL (Normal) PROT DIPSTX Negative mg/dL (Normal) pH UR 7.0 (Normal) Range: 5.0 - 8.0 SP.GR. DIPSTX 1.010 (Normal) Range: 1.002-1.030 KETONE UR Negative mg/dL (Normal) BILIRUBIN URINE Negative mg/dL (Normal) GLUCOSE, UR Normal mg/dL (Normal) CLARITY Sl. Cloudy (Normal) COLOR Yellow (Normal) 75-Qzj-086386:16 URINE EPIFANIO CULTURE (RONALD Comments: PATIENT NOT FASTINGPERFORMED BY: LabCoRobert [facility] Johnson University HospitalZvcmka4859 [facility] [id number] Information: SRC:KARAN [id number] COL COUNT) ([id number]) Result 1 CNSNSS (Abnormal) Comments: Coagulase negative Staphylococcus species, not Staphylococcussaprophyticus.1,000 Colonies/mLBased on resistance to oxacillin this isolate would be resistant toall currently available beta-lactam antimic robial agents, with theexception of the newer cephalosporins with anti-MRSA activity, such asCeftaroline S = Susceptible; I = Intermediate; R = Resistant P = Positive; N = Negative MICS are expressed in micrograms per mL Antibiotic RSLT#1 RSLT#2 RSLT#3 RSLT#4Ciprofloxacin RGentamicin SLevofloxaci n RNitrofurantoin SOxacillin RPenicillin RRifampin STetracycline RTrimethoprim/Sulfa RVancomycin S Urine Final report Culture,Comprehens (Abnormal) tito 5-Tol-241684:25 Culture, Urine Comments: Test performed at:[facility] [address] [place] [address] CUUR See Note (Normal) Comments: Order Date: 11/02/14 Has pt arrived? Y Urine CultureORGANISM 1: Presumptive E. coliColony Count >100,000 Presumptive E. coli: REACTION Amoxacillin/C lavulanic Acid $ 4 S Ampicillin $ 8 S Ampicillin/Sulbactam $ 4 S Cefazolin $ <=4 S Cefe pime $ <=1 S Ceftriaxone $ <=1 S Ciprofloxacin $ <=0.25 S ESBL - Ertapenim $$$ <=0.5 S Gentamicin $ <=1 S Imipenem *NF <=0.25 S Levofloxacin $ <=0.12 S Nitrofurantoin $ <=16 S Piperacillin/Tazobactam $$ <=4 S Tobramycin $ <=1 S Trimetho prim/Sulfametho $ <=20 S(NF) indicates non-formulary drug at [facility]. Approval by Infectious Disease Specialist required before non-formulary drugs may be ordered and/or dispensed. 36-Oyx-54219:24 MICROALBUMIN: CREATININE RATIO Comments: PATIENT WAS FASTINGPERFORMED BY: [facility] Ezhyta[address] [facility] [id number] ([id number]) AND (17613) Microalb/Creat Ratio 1.3 {mg/g_creat} (Normal) Range: 0.0-30.0 Microalbumin, Urine 1.5 ug/mL (Normal) Range: 0.0-17.0 Creatinine, Urine 118.7 mg/dL (Normal) Range: 15.0-278.0 :24 METABOLIC PANEL, COMPREHENSIVE Comments: PATIENT WAS FASTINGPERFORMED BY: [facility] Af[address]ilj[address] [facility] [id number] ([id number]) ALT (SGPT) 22 [iU]/L (Normal) Range: 0-32 AST (SGOT) 26 [iU]/L (Normal) Range: 0-40 Alkaline Phosphatase, S 67 [iU]/L (Normal) Range: 47-112 Bilirubin, Total 0.6 mg/dL (Normal) Range: 0.0-1.2 A/G Ratio 1.6 (Normal) Range: 1.1-2.5 Globulin, Total 2.8 g/dL (Normal) Range: 1.5-4.5 Albumin, Serum 4.6 g/dL (Normal) Range: 3.6-4.8 Protein, Total, Serum 7.4 g/dL (Normal) Range: 6.0-8.5 Calcium, Serum 10.2 mg/dL (Normal) Range: 8.6-10.2 Carbon Dioxide, Total 24 mmol/L (Normal) Range: 19-28 Chloride, Serum 99 mmol/L (Normal) Range: 97-108 Potassium, Serum 5.0 mmol/L (Normal) Range: 3.5-5.2 Sodium, Serum 138 mmol/L (Normal) Range: 134-144 BUN/Creatinine Ratio 29 (Abnormal) Range: 11-26 eGFR If Africn Am 73 mL/min/1.73 (Normal) eGFR If NonAfricn Am 63 mL/min/1.73 (Normal) Creatinine, Serum 0.96 mg/dL (Normal) Range: 0.57-1.00 BUN 28 mg/dL (Abnormal) Range: 8-27 Glucose, Serum 82 mg/dL (Normal) Range: 65-99 :24 LIPID PANEL (10434) Comments: PATIENT WAS FASTINGPERFORMED BY: [facility] [facility] [id number] LDL/HDL Ratio 2.6 {ratio_units} (Normal) Range: 0.0-3.2 Comment: LDLCOM (Normal) Comments: Possible Familial Hypercholesterolemia. FH should be suspected whenfasting LDL cholesterol is above 189 mg/dL or non-HDL cholesterolis above 219 mg/dL. A family history of high cholesterol and heartdise ase in 1st degree relatives should be collected. J Clin Mtcoawh0703;5:133-140 LDL Cholesterol Calc 206 mg/dL (Abnormal) Range: 0-99 VLDL Cholesterol Marysol 16 mg/dL (Normal) Range: 5-40 HDL Cholesterol 79 mg/dL (Normal) Comments: According to ATP-III Guidelines, HDL-C >59 mg/dL is considered anegative risk factor for CHD. Triglycerides 82 mg/dL (Normal) Range: 0-149 Cholesterol, Total 301 mg/dL (Abnormal) Range: 100-199 53-Yln-90007:24 CBC WITH MANUAL DIFF Comments: PATIENT WAS FASTINGPERFORMED BY: [employer] Zigtyu[address] [facility] [id number] Information: [id number] (64853) Immature Grans (Abs) 0.0 {x10E3/uL} (Normal) Range: 0.0-0.1 Immature Granulocytes 0 % (Normal) Range: 0-2 Baso (Absolute) 0.0 {x10E3/uL} (Normal) Range: 0.0-0.2 Eos (Absolute) 0.1 {x10E3/uL} (Normal) Range: 0.0-0.4 Monocytes(Absolute) 0.5 {x10E3/uL} (Normal) Range: 0.1-0.9 Lymphs (Absolute) 1.1 {x10E3/uL} (Normal) Range: 0.7-3.1 Neutrophils (Absolute) 3.0 {x10E3/uL} (Normal) Range: 1.4-7.0 Basos 1 % (Normal) Range: 0-3 Eos 3 % (Normal) Range: 0-5 Monocytes 10 % (Normal) Range: 4-12 Lymphs 24 % (Normal) Range: 14-46 Neutrophils 62 % (Normal) Range: 40-74 Platelets 284 {x10E3/uL} (Normal) Range: 155-379 RDW 14.1 % (Normal) Range: 12.3-15.4 MCHC 32.5 g/dL (Normal) Range: 31.5-35.7 MCH 29.1 pg (Normal) Range: 26.6-33.0 MCV 90 fL (Normal) Range: 79-97 Hematocrit 43.4 % (Normal) Range: 34.0-46.6 Hemoglobin 14.1 g/dL (Normal) Range: 11.1-15.9 RBC 4.84 {x10E6/uL} (Normal) Range: 3.77-5.28 WBC 4.8 {x10E3/uL} (Normal) Range: 3.4-10.8 0-Evk-832505:31 BILAT SCRN DIGITAL & CAD Radiology Report See Note (Normal) Comments: MAMMOGRAPHY - BILATERAL SCREENING REASON FOR EXAM: Female, 62 years old. Routine annual screeningexamination. PERTINENT HISTORY: Non-contributory. TECHNIQUE: Digital examination. Med iolateral ob lique (MLO) andcraniocaudad (CC) views of both breasts were obtained. CAD: CAD wasperformed on this study. COMPARISON: Comparison is made with prior study dated January 18nd December 30, 2010. FINDINGS:The breast composition is heterogeneously dense. There are no dominant masses or suspicious calcifications. A stablerightintramammary lymph node is seen. No other significant abnormalities are identified. There has been nosignificant change since the prior study. IMPRESSION:Stable bilateral screening mammogram. Yearly follow-up recommended. (A) ASSESSMENT CATEGORY:BIRADS Category 2: Leonel ign finding(s). A letter regarding these resultswill be sent to the patient by the facility within 30 days. Approximately 10% of breast cancers are not detected by mammography. Anormal mammogram shoul d not delay biopsy of a clinically suspiciousabnormality. Signed:Tylor Amor M.D.January 31, 2013 at 1:16:07 PM [phone] Signed GP/GP If you are the referring physician and wou ld like to consult with theradiologist who provided this interpretation, please contact Yan Enriquez at [phone]. If this radiologist is unavailable, youwill be directed to another radiol ogist to assist. If you are a patient with a question regarding this report, pleasecontactyour referring physician directly. Professional Interpretation Provided By: Fatimah, Phone ,Fa x [phone] These documents contain legally protected and confidential healthinformation intended only for the use of the individual or entity namedabove. If you are not the intended recipient, you a re hereby notifiedthatany disclosure, copying, distribution, or other use of these documents isstrictly prohibited. If you have received this information in error,pleasenotify the sender immediately and arrange for the return or destructionofthese documents. Dictated on 01/31/13 1231 by Yordy Amor MDranscribed on 01/31/13 1325 by ITS IMPORTSign by Tylor Amor MD on 01/31/13 1326 Sign by: Tylor Amor MD 1-Hzw-759162:31 DEXA BONE DENSITY STUDY (HP) Radiology Report See Note (Normal) Comments: PROCEDURE: DUAL ENERGY X-RAY ABSORPTIOMETRY / DXA REASON FOR EXAM: Female, 62 years old. Osteopenia. TECHNIQUE: Bone Mineral Density (BMD) measurements of lumbar spine andbilateral hips were obtai fabrizio. COMPARISON: Comparison is made with prior study dated December 30, 2010. FINDINGS: Lumbar Spine (L1-L4): g/cm2 (0.844) / T-score (-2.7) / Z-score (-1.2) Left Femur Total: g/cm2 (0.805) / T -score (-1.6) / Z-score (-0.5)Left Femoral Neck: g/cm2 (0.711) / T-score (-2.3) / Z-score (-1.0)Right Femur Total: g/cm2 (0.776) / T-score (-1.8) / Z-score (-0.7)Right Femoral Neck: g/cm2 ( 0.674) / T-score (-2.6) / Z-score (-1.2) The T-Scores on the most recent prior examination were: Lumbar Spine (L1-L4): which represents an improvement of 4.6%.Left Femur Total: which repre sents an improvement of 4.7%.Right Femur Total: which represents an improvement of 5.0%. IMPRESSION:The patient is considered osteopenic, as outlined above, according toWsw[facility] hillHealth Organization (WH O) criteria. Fracture risk is moderate. Reference Information:The T-score is the number of standard deviations above or below thestandard which is normal for young adults at their peak bone mineraldens ity. The World Health Organization (WHO) interprets the T-scores asfollows: Above -1 Normal bone densityBetween -1 and -2.5 OsteopeniaEqual to / or below -2.5 Osteoporosis As a practical c linical guideline, osteopenia may be graded as follows:Mild -1 through -1.5Moderate -1.6 through -2.0Severe -2.1 through -2.4 The Z-score is the number of standard deviations above or below age-match edcontrols. A Z-score of less than -1.5 would be considered abnormal. References:1. NIH Osteoporosis and Related Bone Diseases http://www.osteo.org2. International Society for Clinical Densitometry ht tp://www.iscd.org3. National Osteoporosis Foundation http://www.nof.org Signed:Tylor Amor M.D.January 31, 2013 at 1:13:05 PM [phone] Signed GP/GP If you are the referring ph ysician and would like to consult with theradiologist who provided this interpretation, please contact Yan Enriquez at [phone]. If this radiologist is unavailable, youwill be directed to another radiologist to assist. If you are a patient with a question regarding this report, pleasecontactyour referring physician directly. Professional Interpretation Provided By: [employer] Phone , These documents contain legally protected and confidential healthinformation intended only for the use of the individual or entity namedabove. If you are not the intended r ecipient, you are hereby notifiedthatany disclosure, copying, distribution, or other use of these documents isstrictly prohibited. If you have received this information in error,pleasenotify the sender immediately and arrange for the return or destructionofthese documents. Dictated on 01/31/13 1235 by Mt COLLINS,Yordyranscribed on 01/31/13 1317 by ITS IMPORTSign by Tylor Amor MD on 0 01/31/13 1318 Sign by: Tylor Amor MD 15-Ekf-33296:51 LIPID PANEL (44206) Comments: PATIENT WAS FASTINGPERFORMED BY: SimplilearnRobert Wood Johnson University HospitalWwjeza4812 [facility] [id number] Information: [id number] LDL Cholesterol Calc 162 mg/dL (Abnormal) Range: 0-99 LDL/HDL Ratio 2.7 {ratio_units} (Normal) Range: 0.0-3.2 VLDL Cholesterol Marysol 24 mg/dL (Normal) Range: 5-40 HDL Cholesterol 61 mg/dL (Normal) Comments: According to ATP-III Guidelines, HDL-C >59 mg/dL is considered anegative risk factor for CHD. Triglycerides 122 mg/dL (Normal) Range: 0-149 Cholesterol, Total 247 mg/dL (Abnormal) Range: 100-199 36-Oba-495812:18 Microscopic Examination Comments: PATIENT WAS FASTINGPERFORMED BY: SimplilearnRobert Wood Johnson University HospitalPpcymu5363 [facility] [id number] Bacteria None seen (Normal) Epithelial Cells (non renal) 0-10 {/hpf} (Normal) Range: 0 - 10 RBC 0-3 {/hpf} (Normal) Range: 0 - 3 WBC 0-5 {/hpf} (Normal) Range: 0 - 5 03-Jql-469889:18 METABOLIC PANEL, COMPREHENSIVE Comments: PATIENT WAS FASTINGPERFORMED BY: SimplilearnRobert Wood Johnson University HospitalQviqvq9020 [facility] [id number] ([id number]) ALT (SGPT) 16 [iU]/L (Normal) Range: 0-40 AST (SGOT) 20 [iU]/L (Normal) Range: 0-40 Alkaline Phosphatase, S 52 [iU]/L (Normal) Range: 25-165 Bilirubin, Total 0.4 mg/dL (Normal) Range: 0.0-1.2 A/G Ratio 1.7 (Normal) Range: 1.1-2.5 Globulin, Total 2.6 g/dL (Normal) Range: 1.5-4.5 Albumin, Serum 4.3 g/dL (Normal) Range: 3.6-4.8 Protein, Total, Serum 6.9 g/dL (Normal) Range: 6.0-8.5 Calcium, Serum 9.9 mg/dL (Normal) Range: 8.6-10.2 Carbon Dioxide, Total 23 mmol/L (Normal) Range: 20-32 Chloride, Serum 100 mmol/L (Normal) Range: 97-108 Potassium, Serum 5.0 mmol/L (Normal) Range: 3.5-5.2 Sodium, Serum 136 mmol/L (Normal) Range: 134-144 BUN/Creatinine Ratio 28 (Abnormal) Range: 11-26 eGFR If Africn Am 87 mL/min/1.73 (Normal) eGFR If NonAfricn Am 76 mL/min/1.73 (Normal) Creatinine, Serum 0.83 mg/dL (Normal) Range: 0.57-1.00 BUN 23 mg/dL (Normal) Range: 8-27 Glucose, Serum 88 mg/dL (Normal) Range: 65-99 43-Qda-313056:18 URINALYSIS, W/ MICRO (12186) Comments: PATIENT WAS FASTINGPERFORMED BY: [facility] [facility] [id number] Microscopic Examination See below: (Normal) Microscopic Examination MICRON (Normal) Comments: Microscopic follows if indicated. Nitrite, Urine Negative (Normal) Urobilinogen,Semi-Qn 0.2 mg/dL (Normal) Range: 0.0-1.9 Bilirubin Negative (Normal) Occult Blood Negative (Normal) Ketones Negative (Normal) Glucose Negative (Normal) Protein Negative (Normal) WBC Esterase Negative (Normal) Appearance Clear (Normal) Urine-Color Yellow (Normal) pH 5.5 (Normal) Range: 5.0-7.5 Specific [place] 1.018 (Normal) Range: 1.005-1.030 :18 LIPID PANEL ([id number]) Comments: PATIENT WAS FASTINGPERFORMED BY: [employer]6370 [facility] [id number] LDL/HDL Ratio 2.8 {ratio_units} (Normal) Range: 0.0-3.2 LDL Cholesterol Calc 180 mg/dL (Abnormal) Range: 0-99 Comments: Please note reference interval change VLDL Cholesterol Marysol 23 mg/dL (Normal) Range: 5-40 HDL Cholesterol 64 mg/dL (Normal) Comments: According to ATP-III Guidelines, HDL-C >59 mg/dL is considered anegative risk factor for CHD. Triglycerides 117 mg/dL (Normal) Range: 0-149 Comments: Please note reference interval change Cholesterol, Total 267 mg/dL (Abnormal) Range: 100-199 Comments: Please note reference interval change :18 CBC WITH MANUAL DIFF Comments: PATIENT WAS FASTINGPERFORMED BY: [employer]6370 [facility] [id number] Information: [id number] ([id number]) Immature Grans (Abs) 0.0 {x10E3/uL} (Normal) Range: 0.0-0.1 Immature Granulocytes 0 % (Normal) Range: 0-2 Baso (Absolute) 0.1 {x10E3/uL} (Normal) Range: 0.0-0.2 Eos (Absolute) 0.1 {x10E3/uL} (Normal) Range: 0.0-0.4 Monocytes(Absolute) 0.4 {x10E3/uL} (Normal) Range: 0.1-1.0 Lymphs (Absolute) 1.0 {x10E3/uL} (Normal) Range: 0.7-4.5 Neutrophils (Absolute) 2.9 {x10E3/uL} (Normal) Range: 1.8-7.8 Basos 1 % (Normal) Range: 0-3 Eos 2 % (Normal) Range: 0-7 Monocytes 8 % (Normal) Range: 4-13 Lymphs 22 % (Normal) Range: 14-46 Neutrophils 67 % (Normal) Range: 40-74 Platelets 238 {x10E3/uL} (Normal) Range: 140-415 RDW 14.2 % (Normal) Range: 12.3-15.4 MCHC 32.5 g/dL (Normal) Range: 31.5-35.7 MCH 29.6 pg (Normal) Range: 26.6-33.0 MCV 91 fL (Normal) Range: 79-97 Hematocrit 42.8 % (Normal) Range: 34.0-46.6 Hemoglobin 13.9 g/dL (Normal) Range: 11.1-15.9 RBC 4.70 {x10E6/uL} (Normal) Range: 3.77-5.28 WBC 4.4 {x10E3/uL} (Normal) Range: 4.0-10.5 68-Zor-50993:52 Lipid Panel ([id number]) Comments: PATIENT WAS FASTINGPERFORMED BY: LabCoRobert Wood Johnson University HospitalQyrtqu4089 [facility] [id number] Information: [id number] LDL/HDL Ratio 2.2 {ratio_units} (Normal) Range: 0.0-3.2 LDL Cholesterol Calc 146 mg/dL (Abnormal) Range: 0-99 VLDL Cholesterol Marysol 23 mg/dL (Normal) Range: 5-40 HDL Cholesterol 67 mg/dL (Normal) Comments: According to ATP-III Guidelines, HDL-C >59 mg/dL is considered anegative risk factor for CHD. Triglycerides 115 mg/dL (Normal) Range: 0-149 Cholesterol, Total 236 mg/dL (Abnormal) Range: 100-199 62-Amw-184282:32 BILAT SCRN DIGITAL & CAD Radiology Report See Note (Normal) Comments: MAMMOGRAPHY - BILATERAL SCREENING REASON FOR EXAM: Female, 61 years old. Routine annual screeningexamination. PERTINENT HISTORY: Non-contributory. TECHNIQUE: Digital examination. Med iolateral ob lique (MLO) andcraniocaudad (CC) views of both breasts were obtained. CAD: CAD wasperformed on this study. COMPARISON: Comparison is made with prior study dated December 30, 2010. FINDINGS:The breast c omposition is heterogeneously dense. There are no dominant masses or suspicious calcifications. No other significant abnormalities are identified. There has been nosignificant change since the prior . IMPRESSION:Stable bilateral screening mammogram. Yearly follow-up recommended. (A) ASSESSMENT CATEGORY:BIRADS Category 2: Benign finding(s). A letter regarding these resultswill be sent to the patient by the facility within 30 days. Approximately 10% of breast cancers are not detected by mammography. Anormal mammogram should not delay biopsy of a clinically suspiciousabnormality. To consult with a radiologist regarding this report, please call our [id number] line @ Dictated on 01/18/12 1254 by [place] COLLINS,Yordyranscribed on 01/18/127 by ITS IMPORTSign by Tylor Silverio MD on 01/18/121457 Sign by: Tylor Amor MD 44-Xzh-729527:12 POTASSIUM SERUM ([id number]) Comments: PATIENT NOT FASTINGPERFORMED BY: LabCoRobert Wood Johnson University HospitalDhicuu8313 [facility] [id number] Information: [id number] Potassium, Serum 5.2 mmol/L (Normal) Range: 3.5-5.2 42-Owj-80639:15 CBCD,SMEAR DIFF RED CELL MORPH SeeNote {NORMAL} (Normal) Comments: Result: NORM C+C PLT EST SeeNote (Normal) Comments: Result: ADEQUATE EOS 3 % (Normal) Range: 0-5 MONOCYTE 6 % (Normal) Range: 0-10 LYMPH 15 % (Abnormal) Range: 19-41 BAND 3 % (Normal) Range: 0-5 SEGS 73 % (Abnormal) Range: 47-70 CELLS COUNTED 100 (Normal) ABSOLUTE NEUT 3.7 3/uL (Normal) Range: 2.0-7.7 PLT 290 K/mm3 (Normal) Range: 150-450 RDW 13.8 % (Normal) Range: 11.6-14.6 MCH 30.6 pg (Normal) Range: 27.0-32.0 MCHC 34.4 g/dL (Normal) Range: 32-36 MCV 89.1 fL (Normal) Range: 81-99 HCT 38.2 % (Normal) Range: 37-47 HGB 13.1 g/dL (Normal) Range: 12.0-16.0 RBC 4.29 {M/mm3} (Normal) Range: 4.2-5.4 WBC 5.3 K/mm3 (Normal) Range: 4.4-11.0 :15 COMP METABOLIC GAP 9 (Normal) Range: 5-15 CO2 28.0 mmol/L (Normal) Range: 21.0-32.0 CL 103 mmol/L (Normal) Range: 98-107 K 5.5 mmol/L (Abnormal) Range: 3.5-5.1 NA 140 mmol/L (Normal) Range: 136-145 T BILI 0.40 mg/dL (Normal) Range: 0.00-1.00 ALT 35 U/L (Normal) Range: 12-78 ALK P 55 U/L (Normal) Range: 50-136 AST 23 U/L (Normal) Range: 15-37 CA 9.4 mg/dL (Normal) Range: 8.5-10.1 A/G 1.0 {RATIO} (Normal) Range: 0.9-2.4 GLOB 3.6 g/dL (Normal) Range: 2.7-4.2 ALB 3.7 g/dL (Normal) Range: 3.4-5.0 T PROT 7.3 g/dL (Normal) Range: 6.4-8.2 BUN/CRE 32.5 {RATIO} (Abnormal) Range: 10-20 EST GFR - AA 93 mL/min (Normal) EST GFR 77 mL/min (Normal) CREAT,SERUM 0.8 mg/dL (Normal) Range: 0.6-1.0 BUN 26 mg/dL (Abnormal) Range: 7-18 GLU 94 mg/dL (Normal) Range: 70-110 :15 COMPLETE UA MUCUS, URINE 0 SEEN {/hpf} (Normal) BACTERIA RARE {/hpf} (Normal) SQUAM EPI SeeNote {/hpf} (Normal) Range: 5-10 Comments: Result: 0-5 SEEN RBC-UA SeeNote {/hpf} (Normal) Range: 0-5 Comments: Result: 0-5 SEEN WBC SeeNote {/hpf} (Normal) Range: 0-5 Comments: Result: 0-5 SEEN LEUK ESTERASE SeeNote (Normal) Comments: Result: NEGATIVE OCCULT BLOOD-UR 1+ (Abnormal) NITRITE UR SeeNote (Normal) Comments: Result: NEGATIVE UROBILI 0.2 EU/dl (Normal) Range: 0.2 - 1.0 PROT DIPSTX SeeNote (Normal) Comments: Result: NEGATIVE pH UR 6.0 (Normal) Range: 5.0-8.0 KETONE UR SeeNote mg/dL (Normal) Comments: Result: NEGATIVE SP.GR. DIPSTX 1.020 (Normal) Range: 1.002-1.030 BILIRUBIN URINE SeeNote (Normal) Comments: Result: NEGATIVE GLUCOSE, UR SeeNote (Normal) Comments: Result: NEGATIVE CLARITY SeeNote (Normal) Comments: Result: SL CLOUDY COLOR YELLOW (Normal) :15 LIPID VLDL 12 mg/dL (Normal) Range: 5-40 LDL 158 mg/dL (Abnormal) Range: 0-130 HDL 65 mg/dL (Normal) Comments: Reference Range HDL <40 mg/dL Low HDL Cholesterol HDL >or= 60 mg/dL High HDL Cholesterol TRIG 62 mg/dL (Normal) Comments: Serum Triglycerides Reference Interval Normal <150 mg/dL Borderline high 150 - 199 mg/dL High 200 - 499 mg/dL Very High > or = 500 mg/dL CHOL 235 mg/dL (Abnormal) Comments: <200 mg/dL Desirable 200-240 mg/dL Borderline >240 mg/dL High Risk [id number]-Djz-706766:37 CBCD,SMEAR DIFF RED CELL MORPH SeeNote {NORMAL} (Normal) Comments: Result: NORM C+C MONOCYTE 7 % (Normal) Range: 0-10 PLT EST SeeNote (Normal) Comments: Result: ADEQUATE BAND 3 % (Normal) Range: 0-5 LYMPH 13 % (Abnormal) Range: 19-41 SEGS 77 % (Abnormal) Range: 47-70 CELLS COUNTED 100 (Normal) ABSOLUTE NEUT 5.3 3/uL (Normal) Range: 2.0-7.7 MCHC 33.5 g/dL (Normal) Range: 32-36 PLT 256 K/mm3 (Normal) Range: 150-450 RDW 13.8 % (Normal) Range: 11.6-14.6 MCH 30.8 pg (Normal) Range: 27.0-32.0 MCV 92.1 fL (Normal) Range: 81-99 HCT 39.7 % (Normal) Range: 37-47 HGB 13.3 g/dL (Normal) Range: 12.0-16.0 RBC 4.31 {M/mm3} (Normal) Range: 4.2-5.4 WBC 6.9 K/mm3 (Normal) Range: 4.4-11.0 :37 COMP METABOLIC CO2 32.0 mmol/L (Normal) Range: 21.0-32.0 GAP 5 (Normal) Range: 5-15 CL 100 mmol/L (Normal) Range: 98-107 K 4.5 mmol/L (Normal) Range: 3.5-5.1 NA 137 mmol/L (Normal) Range: 136-145 T BILI 0.60 mg/dL (Normal) Range: 0.00-1.00 ALT 28 U/L (Normal) Range: 12-78 ALK P 62 U/L (Normal) Range: 50-136 A/G 1.1 {RATIO} (Normal) Range: 0.9-2.4 AST 14 U/L (Abnormal) Range: 15-37 CA 9.6 mg/dL (Normal) Range: 8.5-10.1 ALB 4.0 g/dL (Normal) Range: 3.4-5.0 GLOB 3.6 g/dL (Normal) Range: 2.7-4.2 BUN/CRE 25.6 {RATIO} (Abnormal) Range: 10-20 EST GFR - AA 82 mL/min (Normal) T PROT 7.6 g/dL (Normal) Range: 6.4-8.2 CREAT,SERUM 0.9 mg/dL (Normal) Range: 0.6-1.0 EST GFR 68 mL/min (Normal) BUN 23 mg/dL (Abnormal) Range: 7-18 GLU 93 mg/dL (Normal) Range: 70-110 :37 COMPLETE UA Comments: appt 05/10/11 BACTERIA RARE {/hpf} (Normal) MUCUS, URINE 0 SEEN {/hpf} (Normal) RBC-UA SeeNote {/hpf} (Normal) Range: 0-5 Comments: Result: 0-5 SEEN SQUAM EPI SeeNote {/hpf} (Normal) Range: 5-10 Comments: Result: 0-5 SEEN WBC SeeNote {/hpf} (Normal) Range: 0-5 Comments: Result: 0-5 SEEN LEUK ESTERASE 1+ (Abnormal) NITRITE UR SeeNote (Normal) Comments: Result: NEGATIVE OCCULT BLOOD-UR 1+ (Abnormal) PROT DIPSTX SeeNote (Normal) Comments: Result: NEGATIVE UROBILI 0.2 EU/dl (Normal) Range: 0.2 - 1.0 BILIRUBIN URINE SeeNote (Normal) Comments: Result: NEGATIVE KETONE UR SeeNote mg/dL (Normal) Comments: Result: NEGATIVE pH UR 5.5 (Normal) Range: 5.0-8.0 SP.GR. DIPSTX 1.025 (Normal) Range: 1.002-1.030 CLARITY CLEAR (Normal) GLUCOSE, UR SeeNote (Normal) Comments: Result: NEGATIVE COLOR YELLOW (Normal) :37 LIPID VLDL 26 mg/dL (Normal) Range: 5-40 HDL 64 mg/dL (Normal) Comments: Reference Range HDL <40 mg/dL Low HDL Cholesterol HDL >or= 60 mg/dL High HDL Cholesterol LDL 130 mg/dL (Normal) Range: 0-130 CHOL 220 mg/dL (Abnormal) Comments: <200 mg/dL Desirable 200-240 mg/dL Borderline >240 mg/dL High Risk TRIG 132 mg/dL (Normal) Comments: Serum Triglycerides Reference Interval Normal <150 mg/dL Borderline high 150 - 199 mg/dL High 200 - 499 mg/dL Very High > or = 500 mg/dL : Calcium, Serum 9.8 mg/dL (Normal) Comments: PERFORMED BY: [employer] [facility] [id number] Range: 8.6-10.2 : Phosphorus, Serum 3.6 mg/dL (Normal) Comments: PERFORMED BY: [employer] [facility] [id number] Range: 2.5-4.5 :59 Protein Electro, Random Urine Comments: PERFORMED BY: [employer] [facility] [id number] Please note: SPRCS (Normal) Comments: Protein electrophoresis scan will follow via computer, mail, orcourier delivery. Gamma Globulin, U 19.1 % (Normal) M-Faisal, % Not Observed % (Normal) Beta Globulin, U 32.4 % (Normal) Scjmu-0-Asklqjvo, U 20.5 % (Normal) Sjvnv-1-Ltswofvq, U 4.1 % (Normal) Albumin, U 23.9 % (Normal) Protein,Total,Urine 6.5 mg/dL (Normal) Range: 0.0-15.0 73-Nmx-371168:59 Protein Electro.,S Comments: PERFORMED BY: [employer] [facility] [id number] Please note: SPRCS (Normal) Comments: Protein electrophoresis scan will follow via computer, mail, orcourier delivery. A/G Ratio 1.2 (Normal) Range: 0.7-2.0 Globulin, Total 3.2 g/dL (Normal) Range: 2.0-4.5 M-Faisal Not Observed g/dL (Normal) Qvqrz-2-Zrcrvdhu 0.2 g/dL (Normal) Range: 0.1-0.4 Oxpcj-7-Hdjcmxrd 0.8 g/dL (Normal) Range: 0.4-1.2 Beta Globulin 1.1 g/dL (Normal) Range: 0.6-1.3 Gamma Globulin 1.1 g/dL (Normal) Range: 0.5-1.6 Albumin 3.9 g/dL (Normal) Range: 3.2-5.6 Protein, Total, Serum 7.1 g/dL (Normal) Range: 6.0-8.5 PTH, Intact 27 pg/mL (Normal) Comments: PERFORMED BY: [employer] RolonFlag Day Consulting ServicesNov[facility] [id number] 5:59 Range: 15-65 Sedimentation 5 mm/h (Normal) Comments: PERFORMED BY: [employer] [facility] [id number] 5:59 Rate-Westergren Range: 0-30 TSH 1.050 {uIU/mL} Comments: PERFORMED BY: [employer] [facility] HospitalLOAGNov[facility] [id number] 5:59 (Normal) Range: 0.450-4.500 Vitamin D, 25-Hydroxy 39.3 ng/mL Comments: PERFORMED BY: Four Eyes RoadDublin [place] [id number] 5:59 (Normal) Range: 32.0-100.0 Comments: Recent studies consider the lower limit of 32.0 ng/mL to be athreshold for optimal health.Carrington WICK. J Nutr. 2004;135(2):317-22. 3-Fbo-465433:55 BILAT SCRN DIGITAL & CAD Radiology Report See Note (Normal) Comments: MAMMOGRAPHY - BILATERAL SCREENING INDICATION:Female, 60 years old. Routine annual screening examination. PERTINENT HISTORY:Non-contributory. TECHNIQUE:Digital examination. Mediolateral oblique (MLO) a nd craniocaudad (CC)views of both breasts were obtained. CAD was performed on this study. COMPARISON:None. Comparison is made with prior examination dated May 18, 2009. FINDINGS:The breast composition is heterogeneously dense. There are no masses or suspicious microcalcifications. No other significant abnormalities are identified. There has been nosignificant change since the prior study. IMPRESSIO N:Normal bilateral screening mammogram. Yearly follow-up recommended. ASSESSMENT CATEGORY:BIRADS Category 2: Benign finding(s). A letter regarding these resultswill be sent to the patient by the [facility] within 30 days. Approximately 10% of breast cancers are not detected by mammography. Anormal mammogram should not delay biopsy of a clinically suspiciousabnormality. Dictated on 12/30/10 1348 Yordy Ortizranscribed on 01/05/11 1047 by ITS IMPORTSign by Tylor Amor on 01/05/11 1048 Sign by: Tylor Amor 2-Fse-128458:54 DEXA BONE DENSITY STUDY (HP) Radiology Report See Note (Normal) Comments: CLINICAL:Female, 60 years old. The patient is postmenopausal. EXAMINATION:DUAL ENERGY X-RAY ABSORPTIOMETRY / DEXA. TECHNIQUE:Bone Mineral Density (BMD) measurements of lumbar spine and bila teralhipswer e obtained using a varinode scanner.. COMPARISON:Comparison is made with prior study dated November 07, 2003. FINDINGS: Lumbar Spine (L1- L4): g/cm2 (0.880) / T-score (-2.5) / Z-scor e (-1.3)Left Femur Total: g/cm2 (0.768) / T-score (-1.9) / Z-score (- 1.0)Right Femur Total: g/cm2 (0.739) / T-score (-2.1) / Z-score (-1.2) Since prior examination, there has been a loss of 10 .5% in the bonedensity. IMPRESSION:The patient is considered osteopenic, as outlined above, according toWorldHealth Organization (WHO) criteria. Fracture risk is moderate. Reference Information:The T-s core is the number of standard deviations above or below thestandard which is normal for young adults at their peak bone mineraldensity. The World Health Organization (WHO) interprets the T-scores asfol lows: Above -1 Normal bone densityBetween -1 and -2.5 OsteopeniaEqual to / or below -2.5 Osteoporosis As a practical clinical guideline, osteopenia may be graded as follows:Mild -1 through -1.5Moderate -1.6 through -2.0Severe -2.1 through -2.4 The Z-score is the number of standard deviations above or below age- matchedcontrols. A Z-score of less than -1.5 would be conside red abnormal. References:1. NIH Osteoporosis and Related Bone Diseases http://www.osteo.org2. International Society for Clinical Densitometry http://www.iscd.org3. National Osteoporosis Foundation ht tp://www.nof.org Dictated on 12/30/10 1300 by Yordy Amorranscribed on 12/30/10 1406 by ITS IMPORTSign by Tylor Amor on 12/30/10 1407 Sign by: Tylor Amor 6-Plm-976728:03 METABOLIC PANEL, COMPREHENSIVE Comments: PATIENT WAS FASTINGPERFORMED BY: LabCoRobert Wood Johnson University HospitalGysbbo3849 [facility] [id number] ([id number]) ALT (SGPT) 17 [iU]/L (Normal) Range: 0-40 A/G Ratio 1.7 (Normal) Range: 1.1-2.5 Alkaline Phosphatase, S 75 [iU]/L (Normal) Range: 25-165 AST (SGOT) 19 [iU]/L (Normal) Range: 0-40 Bilirubin, Total 0.4 mg/dL (Normal) Range: 0.0-1.2 Albumin, Serum 4.6 g/dL (Normal) Range: 3.6-4.8 Globulin, Total 2.7 g/dL (Normal) Range: 1.5-4.5 Protein, Total, Serum 7.3 g/dL (Normal) Range: 6.0-8.5 Calcium, Serum 10.5 mg/dL (Abnormal) Range: 8.6-10.2 Carbon Dioxide, Total 26 mmol/L (Normal) Range: 20-32 Chloride, Serum 101 mmol/L (Normal) Range: 97-108 BUN/Creatinine Ratio 19 (Normal) Range: 11-26 Potassium, Serum 4.8 mmol/L (Normal) Range: 3.5-5.2 Sodium, Serum 139 mmol/L (Normal) Range: 135-145 eGFR >59 mL/min/1.73 (Normal) eGFR AfricanAmerican >59 mL/min/1.73 Comments: Note: Persistent reduction for 3 months or more in an eGFR<60 mL/min/1.73 m2 defines CKD. Patients with eGFR values>/=60 mL/min/1.73 m2 may also have CKD if evidence of persistentproteinuria is (Normal) present. Additional information may be found atwww.kdoqi.org. BUN 17 mg/dL (Normal) Range: 8-27 Creatinine, Serum 0.90 mg/dL (Normal) Range: 0.57-1.00 Glucose, Serum 97 mg/dL (Normal) Range: 65-99 4-Acq-662507:03 LIPID PANEL ([id number]) Comments: PATIENT WAS FASTINGPERFORMED BY: LabCoRobert Wood Johnson University HospitalVabmem5382 [facility] [id number] LDL Cholesterol Calc 176 mg/dL (Abnormal) Range: 0-99 LDL/HDL Ratio 2.7 {ratio_units} (Normal) Range: 0.0-3.2 VLDL Cholesterol Marysol 31 mg/dL (Normal) Range: 5-40 Cholesterol, Total 272 mg/dL (Abnormal) Range: 100-199 HDL Cholesterol 65 mg/dL (Normal) Comments: According to ATP-III Guidelines, HDL-C >59 mg/dL is considered anegative risk factor for CHD. Triglycerides 157 mg/dL (Abnormal) Range: 0-149 8-Flc-104173:03 CBC WITH MANUAL DIFF Comments: PATIENT WAS FASTINGPERFORMED BY: [facility]6370 [facility] [id number] Information: [id number] (62662) Baso (Absolute) 0.1 {x10E3/uL} (Normal) Range: 0.0-0.2 Eos (Absolute) 0.1 {x10E3/uL} (Normal) Range: 0.0-0.4 Immature Grans (Abs) 0.0 {x10E3/uL} (Normal) Range: 0.0-0.1 Immature Granulocytes 0 % (Normal) Range: 0-1 Lymphs (Absolute) 1.5 {x10E3/uL} (Normal) Range: 0.7-4.5 Monocytes(Absolute) 0.5 {x10E3/uL} (Normal) Range: 0.1-1.0 Neutrophils (Absolute) 4.1 {x10E3/uL} (Normal) Range: 1.8-7.8 Basos 1 % (Normal) Range: 0-3 Eos 2 % (Normal) Range: 0-7 Lymphs 23 % (Normal) Range: 14-46 Monocytes 8 % (Normal) Range: 4-13 Neutrophils 66 % (Normal) Range: 40-74 MCHC 33.3 g/dL (Normal) Range: 32.0-36.0 Platelets 297 {x10E3/uL} (Normal) Range: 140-415 RDW 14.3 % (Normal) Range: 11.7-15.0 MCH 30.3 pg (Normal) Range: 27.0-34.0 MCV 91 fL (Normal) Range: 80-98 Hematocrit 43.5 % (Normal) Range: 34.0-44.0 Hemoglobin 14.5 g/dL (Normal) Range: 11.5-15.0 RBC 4.79 {x10E6/uL} (Normal) Range: 3.80-5.10 WBC 6.2 {x10E3/uL} (Normal) Range: 4.0-10.5 29-Jun-20108:38 METABOLIC PANEL, COMPREHENSIVE Comments: PATIENT WAS FASTINGPERFORMED BY: LabCoRobert Wood Johnson University HospitalOsahnk0878 [facility] [id number] ([id number]) ALT (SGPT) 23 [iU]/L (Normal) Range: 0-40 AST (SGOT) 29 [iU]/L (Normal) Range: 0-40 Alkaline Phosphatase, S 63 [iU]/L (Normal) Range: 25-165 Bilirubin, Total 0.3 mg/dL (Normal) Range: 0.0-1.2 A/G Ratio 1.8 (Normal) Range: 1.1-2.5 Albumin, Serum 4.5 g/dL (Normal) Range: 3.6-4.8 Calcium, Serum 9.5 mg/dL (Normal) Range: 8.6-10.2 Globulin, Total 2.5 g/dL (Normal) Range: 1.5-4.5 Protein, Total, Serum 7.0 g/dL (Normal) Range: 6.0-8.5 Carbon Dioxide, Total 24 mmol/L (Normal) Range: 20-32 Chloride, Serum 101 mmol/L (Normal) Range: 97-108 Potassium, Serum 5.4 mmol/L (Abnormal) Range: 3.5-5.2 Comments: This serum sample was in contactwith the red cells when received.This may adversely affect serumChemistries. Sodium, Serum 138 mmol/L (Normal) Range: 135-145 BUN/Creatinine Ratio 31 (Abnormal) Range: 8-27 Creatinine, Serum 0.96 mg/dL (Normal) Range: 0.57-1.00 eGFR 59 mL/min/1.73 (Abnormal) eGFR AfricanAmerican >59 mL/min/1.73 Comments: Note: Persistent reduction for 3 months or more in an eGFR<60 mL/min/1.73 m2 defines CKD. Patients with eGFR values>/=60 mL/min/1.73 m2 may also have CKD if evidence of persistentproteinuria is (Normal) present. Additional information may be found atwww.kdoqi.org. BUN 30 mg/dL (Abnormal) Range: 5-26 Glucose, Serum 89 mg/dL (Normal) Range: 65-99 :38 LIPID PANEL ([id number]) Comments: PATIENT WAS FASTINGPERFORMED BY: [employer] Lkxixp4152 [facility] [id number] LDL Cholesterol Calc 143 mg/dL (Abnormal) Range: 0-99 LDL/HDL Ratio 2.0 {ratio_units} (Normal) Range: 0.0-3.2 Cholesterol, Total 228 mg/dL (Abnormal) Range: 100-199 HDL Cholesterol 73 mg/dL (Normal) Comments: According to ATP-III Guidelines, HDL-C >59 mg/dL is considered anegative risk factor for CHD. Triglycerides 58 mg/dL (Normal) Range: 0-149 VLDL Cholesterol Marysol 12 mg/dL (Normal) Range: 5-40 :38 CBC WITH MANUAL DIFF Comments: in three months (approximately); PATIENT WAS FASTINGPERFORMED BY: [employer]6370 [facility] [id number] Information: ADD [id number] AND DRAW FEE 99 6537 ([id number]) Baso (Absolute) 0.0 {x10E3/uL} (Normal) Range: 0.0-0.2 Eos (Absolute) 0.1 {x10E3/uL} (Normal) Range: 0.0-0.4 Immature Grans (Abs) 0.0 {x10E3/uL} (Normal) Range: 0.0-0.1 Immature Granulocytes 0 % (Normal) Range: 0-1 Monocytes(Absolute) 0.4 {x10E3/uL} (Normal) Range: 0.1-1.0 Lymphs (Absolute) 1.0 {x10E3/uL} (Normal) Range: 0.7-4.5 Neutrophils (Absolute) 2.8 {x10E3/uL} (Normal) Range: 1.8-7.8 Basos 1 % (Normal) Range: 0-3 Eos 3 % (Normal) Range: 0-7 Monocytes 9 % (Normal) Range: 4-13 Lymphs 23 % (Normal) Range: 14-46 Neutrophils 64 % (Normal) Range: 40-74 Platelets 280 {x10E3/uL} (Normal) Range: 140-415 MCH 29.9 pg (Normal) Range: 27.0-34.0 MCHC 34.3 g/dL (Normal) Range: 32.0-36.0 RDW 13.5 % (Normal) Range: 11.7-15.0 Hematocrit 39.4 % (Normal) Range: 34.0-44.0 Hemoglobin 13.5 g/dL (Normal) Range: 11.5-15.0 MCV 87 fL (Normal) Range: 80-98 RBC 4.51 {x10E6/uL} (Normal) Range: 3.80-5.10 WBC 4.4 {x10E3/uL} (Normal) Range: 4.0-10.5 41-Mug-034690:03 BMP BUN/CRE 24.4 {RATIO} (Abnormal) Range: 10-20 CA 9.6 mg/dL (Normal) Range: 8.5-10.1 CL 100 mmol/L (Normal) Range: 98-107 CO2 29.0 mmol/L (Normal) Range: 21.0-32.0 EST GFR - AA 82 mL/min (Normal) GAP 7 (Normal) Range: 5-15 K 4.1 mmol/L (Normal) Range: 3.5-5.1 NA 136 mmol/L (Normal) Range: 136-145 BUN 22 mg/dL (Abnormal) Range: 7-18 CREAT,SERUM 0.9 mg/dL (Normal) Range: 0.6-1.0 EST GFR 68 mL/min (Normal) GLU 91 mg/dL (Normal) Range: 70-110 11-Fwe-66494:00 EPIFANIO CULTURE-OTHER ([id number]) Comments: PATIENT NOT FASTINGPERFORMED BY: LabCoRobert Wood Johnson University HospitalNphgzk0023 [facility] [id number] Information: SRC: THROAT Result 1 RRF (Normal) Comments: Routine respiratory michelle Upper Respiratory Culture Final report (Normal) 39-Ejl-165978:43 Rapid Strep Test, Office ([id number]) Rapid Strep Test, Office Negative (Normal) 60-Qfd-19977:35 CBCD,SMEAR DIFF CELLS COUNTED 100 (Normal) EOS 1 % (Normal) Range: 0-5 HCT 40.5 % (Normal) Range: 37-47 HGB 13.8 g/dL (Normal) Range: 12.0-16.0 LYMPH 37 % (Normal) Range: 19-41 MCH 30.8 pg (Normal) Range: 27.0-32.0 MCHC 33.9 g/dL (Normal) Range: 32-36 MCV 90.8 fL (Normal) Range: 81-99 MONOCYTE 5 % (Normal) Range: 0-10 PLT 248 K/mm3 (Normal) Range: 150-450 PLT EST SeeNote (Normal) Comments: Result: ADEQUATE RBC 4.46 {M/mm3} (Normal) Range: 4.2-5.4 RDW 13.0 % (Normal) Range: 11.6-14.6 RED CELL MORPH SeeNote {NORMAL} (Normal) Comments: Result: NORM C+C SEGS 57 % (Normal) Range: 47-70 WBC 4.2 K/mm3 (Abnormal) Range: 4.4-11.0 :35 COMP METABOLIC A/G 1.0 {RATIO} (Normal) Range: 0.9-2.4 ALB 3.8 g/dL (Normal) Range: 3.4-5.0 ALK P 68 U/L (Normal) Range: 50-136 ALT 27 U/L (Normal) Range: 12-78 AST 21 U/L (Normal) Range: 15-37 BUN 22 mg/dL (Abnormal) Range: 7-18 BUN/CRE 31.4 {RATIO} (Abnormal) Range: 10-20 CA 9.5 mg/dL (Normal) Range: 8.5-10.1 CL 104 mmol/L (Normal) Range: 98-107 CO2 31.0 mmol/L (Normal) Range: 21.0-32.0 CREAT,SERUM 0.7 mg/dL (Normal) Range: 0.6-1.0 EST GFR 91 mL/min (Normal) EST GFR - AA 110 mL/min (Normal) GAP 4 (Abnormal) Range: 5-15 GLOB 3.7 g/dL (Normal) Range: 2.7-4.2 GLU 87 mg/dL (Normal) Range: 70-110 K 5.7 mmol/L (Abnormal) Range: 3.5-5.1 NA 139 mmol/L (Normal) Range: 136-145 T BILI 0.70 mg/dL (Normal) Range: 0.00-1.00 T PROT 7.5 g/dL (Normal) Range: 6.4-8.2 :35 LIPID CHOL 239 mg/dL (Abnormal) Comments: <200 mg/dL Desirable 200-240 mg/dL Borderline >240 mg/dL High Risk HDL 75 mg/dL (Normal) Comments: Reference Range HDL <40 mg/dL Low HDL Cholesterol HDL >or= 60 mg/dL High HDL Cholesterol LDL 151 mg/dL (Abnormal) Range: 0-130 TRIG 66 mg/dL (Normal) Comments: Serum Triglycerides Reference Interval Normal <150 mg/dL Borderline high 150 - 199 mg/dL High 200 - 499 mg/dL Very High > or = 500 mg/dL VLDL 13 mg/dL (Normal) Range: 5-40 :35 MICROALB:CRE UR MALB:CREAT 4.3 {mg/g_CRE} (Normal) MICROALBUMIN,UR 5.6 mg/L (Normal) UR CREAT 129.6 mg/dL (Normal) :31 BRAIN/HEAD W/WO CONTRAST Radiology Report See Note (Normal) Comments: Exam Number: [id number] CLINICAL:Syncope and CT BRAIN WITH AND WITHOUT CONTRAST COMPARISON:None. TECHNIQUE:Transaxial imaging was performed pre-and post contrast administration. The examination was perf ormed with intravenous administration of 50 ml of Isovue 370 contrast material. FINDINGS:Normal cerebral hemispheres, without volume loss, ventricular dilatation or cerebral edema. Normal white matter tracts of the supratentorial brain. Normal basal ganglia, and thalami. Normal brainstem, cerebellum and visualized posterior fossa structures. There is no demonstrated acute or evolving ischemic infarc tion. There is no intra-axial or extra-axial hemorrhage or hematoma. There is no intra-axial or extra-axial mass lesion. There is normal enhancement of the dural sinuses, and cortical veins. There is no rmal enhancement of the [place], without a demonstrated aneurysm. Normal osseous calvarium, visualized facial bones, central skull base, and temporal bones without a demonstrated fracture or de structive process. Normal soft tissue structures of the calvarium. Normal visualized paranasal sinuses without mucosal thickening or air-fluid levels. IMPRESSION:Normal enhanced CT scan of the brain wi thout an acute or evolving intracranial process. Reported By: JERILYN PERRY [id number]: GLU GTT-5 HOUR 73 mg/dL (Normal) Comments: 5HR GTT GLU 5 HR GLU GTT-5 HOUR from 0922:[id number]. 37 Range: 70-110 : GLU GTT-4 HOUR <TEST NOT PERFORMED> Comments: 5HR GTT GLU 4 HR GLU GTT-4 HOUR from 22:[id number]. 45 mg/dL (Normal) Range: 70-110 : GLU GTT-3 HOUR 78 mg/dL (Normal) Comments: 5HR GTT GLU 3 HR GLU GTT-3 HOUR from 921:[id number]. 40 Range: 70-110 : GLU GTT-2 HOUR 134 mg/dL (Abnormal) Comments: 5HR GTT GLU 2 HR GLU GTT-2 HOUR from 921:[id number]. 40 Range: 70-120 :4 GLU GTT-1 HOUR 155 mg/dL (Normal) Comments: 5HR GTT GLU 1 HR GLU GTT-1 HOUR from 921:Z41207S. 0 Range: 120-170 :0 GLU GTT-30 min. 180 mg/dL (Abnormal) Comments: 5HR GTT GLU 1/2 HR GLU GTT-30 min. from 921:[id number]. 8 Range: 110-170 Comments: SPECIMEN GROSSLY HEMOLYZED :3 GLU GTT-FASTING 104 mg/dL (Normal) Comments: 5HR GTT FASTING GLU GTT-FASTING from 921:Q79020M. 5 Range: 70-110 Comments: GLUCOSE TOLERANCE TEST Reference Interval Non- Adults Fasting 70 - 110 30 minutes 110 - 170 1 hour 120 - 170 2 hour 70 - 120 3 hour 70 - 110 4 hour 70 - 110 5 hour 70 - 110 :3 BEDSIDE GLU 97 mg/dL (Normal) Range: 70-110 3 Comments: Policy and Physicians Orders followed :47 Urinalysis, Office (50483) UA - BILIRUBIN Small (Normal) UA - BLOOD Hemolyzed Small (Normal) UA - GLUCOSE Negative (Normal) UA - KETONES Negative mg/dL (Normal) UA - LEUKOCYTE ESTERASE Small (Normal) Comments: aw UA - NITRITE Negative (Normal) UA - PH 5.0 (Normal) UA - PROTEIN Negative mg/dL (Normal) UA - SPECIFIC GRAVITY 1.025 (Normal) URINE UROBILINGN RONALD TIMED Normal mg/dL (Normal) [id number] UNILAT RT DIAG DIGITAL & CAD Radiology Report See Note (Normal) Comments: Exam Number: [id number] MAMMOGRAM, UNILATERAL RIGHT DIAGNOSTIC DIGITAL AND CAD HISTORY6-month followup abnormal mammogram. Full field digital images were obtained in mediolateral oblique an dcraniocauda l projections. True lateral and spot true lateral viewswere also obtained. CAD images were reviewed. The current study is compared to the examinations of February 15, 2006,March 02, 2007, October 16 8, and October 28, 2008. There is a severe extent of fibroglandular parenchyma present. Thereis no skin thickening or retraction, architectural distortion, ordominant mass. The cluster of calcificat ions identified in the uppermid right breast on the examination of October 16, 2008, is also seenin the craniocaudal view of February 15, 2006, and in the examination ofApr2006. They are unchanged on the examination of April. This is most likely to represent benign vascular calcification.For further evaluation of this patient, it is recommended that abilateral screening study be obtained in 6 months to reestablish thepatient's routine screening schedule. IMPRESSIONThere is no radiographic evidence of malignancy identified. FINAL ASSESSMENTBenign findings. BIRADS Category 2. A lette r regarding these results has been sent to the patient. This interpretation was rendered by a radiologist certified under theMammography Quality Standards Act of 1992 (MQSA). The mammograms werealso e xamined with computer-aided detection software ([employer], [employer] Reported By: AUBRIE CROW M.D. [id number] ABDOMEN W/WO IV CONTRAST Radiology Report See Note (Normal) Comments: Exam Number: [id number] CLINICAL:Liver lesion CT ABDOMEN WITH AND WITHOUT CONTRAST COMPARISON:None. TECHNIQUE:The examination was performed with intravenous administration of 100 ml of Isovue- 300 contras t material. Noncontrast axial images, arterial phase and delayed imaging axial images submitted. Oral contrast given. FINDINGS:The visualized lower lungs are clear. The visualized heart is normal in s ize, morphology and position. There is a 2-cm liver lesion in the posterior aspect of the right liver lobe which enhances on the periphery on the arterial phase and completely enhances on the delayed im aging consistent with a benign cavernous hemangioma. No other enhancing liver lesions. There is a small 5-mm cyst right lobe of the liver. The gallbladder is normal with a normal yvette hepatis and vis ualized common bile duct (CBD). The pancreas is normal without focal or diffuse enlargement, atrophy or pancreatic calcifications. Normal bilateral adrenal glands. Normal size and contour of the right k idney without a solid or cystic mass lesion. There is normal enhancement and excretion of contrast material. Stable renal calculi. 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 There is no caliectasis or hydronephrosis. Normal right perinephric spaces. Normal size and contour of the left kidney without a solid o r cystic mass lesion. There is normal enhancement and excretion of contrast material. There are scattered areas of nephrolithiasis of the renal papilla consistent with renal tubular ectasia (medullary sponge kidney). There is no caliectasis or hydronephrosis. Normal left perinephric spaces. Normal visualized bilateral ureters without evidence of hydroureter or demonstrated ureteral calculus. Nor mal retroperitoneum without lymphadenopathy or a mass lesion. Normal visualized distal esophagus and stomach. Normal visualized small intestine without an obstruction, bowel wall thickening, mesenteric edema or mesenteric lymphadenopathy. Normal visualized large intestine without obstruction, bowel wall thickening, diverticulosis, diverticulitis, mesenteric edema or pericolonic inflammation There i s no peritoneal fluid or ascites. There is no demonstrated free peritoneal gas or extraluminal gas. Normal caliber of the abdominal aorta. Normal caliber of the inferior vena cava. Normal visualized o sseous structures. Normal soft tissue structures of the abdominal wall. IMPRESSION:There is an enhancing 2-cm liver lesion with Sweeney enhances on delayed imaging consistent with a benign cavernous hem angioma. Small less than 1 cm liver cyst right lobe of the liver. Stable renal calculi. No hydronephrosis. Possible medullary sponge kidneys. Reported By: GREGG GLEZ M.D. 06-Kpt-56628:28 SERUM CRE & GFR Comments: CALL RESULTS TO [phone] CREAT,SERUM 0.8 mg/dL (Normal) Range: 0.6-1.0 EST GFR 78 mL/min (Normal) EST GFR - AA 95 mL/min (Normal) 49-Dlg-41962:29 CERV SPINE,MIN 4 VIEWS Radiology Report See Note (Normal) Comments: Exam Number: [id number] CERVICAL SPINE SERIES, MULTIPLE VIEWS INCLUDING BILATERAL OBLIQUEVIEWS REASON FOR EXAMINATIONNeck pain. Patient denies trauma. FINDINGSVertebral body heights and disk spaces are well maintained. Alignmentis anatomic. There is no prevertebral soft tissue swelling. Atlanto-axial relationships are normal. Spinous processes are in themidline. Neural foramina are widely patent. No acute osseousabnormality. Lung apices as visualized are clear. IMPRESSIONNormal 5-view cervical spine series. Reported By: EMMA JETT M.D. [id number] UNILAT RT DIAG DIGITAL & CAD Radiology Report See Note (Normal) Comments: Exam Number: [id number] MAMMOGRAM, UNILATERAL RIGHT DIAGNOSTIC DIGITAL AND CAD HISTORYCalcifications. Full field digital images were obtained in magnification spot views ofthe right breast in mediolatera l, oblique and craniocaudalprojections. The current study is compared to the examinations of January 2006, February2007 and October 16, 2008. The calcifications seen on October 16, 2008 can also be identif ied onthe examination of March 02, 2007 although they are more difficult tolocate on the earlier study. A smaller number of calcifications canbe seen in the same location on the craniocaudal view of Jan. Although very difficult to visualize, a few calcifications canbe seen in the mediolateral oblique projection of February 15, 2006 aswell. The calcifications do form a line. On the magnificat ion viewsthere does appear to be a vessel crossing along the calcifications. The findings, therefore, are most likely to represent vascularcalcifications. For further evaluation, a right 6-month follow upmammogram is recommended. IMPRESSIONThe calcifications identified in the upper inner quadrant of the rightbreast on the study of October 16, 2008 are most likely vascular. Although they are better se en on the current study, they were presentApr2006 and a few calcifications were present in the samelocation February 15, 2006. For further evaluation of thesecalcifications, a right 6-month followup mammogram is recommended. FINAL ASSESSMENTProbably benign. BIRADS Category 3. A letter regarding these results has been sent to the patient. This interpretation was rendered by a radiologist certifie d under theMammography Quality Standards Act of 1992 (MQSA). The mammograms werealso examined with computer-aided detection software ([employer], [employer] Reported By: AUBRIE CROW M.D. [id number] [facility] DIGITAL & CAD Radiology Report See Note (Normal) Comments: Exam Number: [id number] BILATERAL SCREENING MAMMOGRAPHY HISTORYRoutine screening. COMPARISONComparison is made to prior studies of March 16, 2007, March 02, 2007,and February 15, 2006. TECHNIQUER outine MLO a nd CC views were acquired. FINDINGSThe breast parenchyma is heterogeneously dense. A benign intramammarylymph node is shown in the left breast. There has been intervalvisualization of a linear groupi ng of punctate calcifications in theanterior right breast for which further evaluation with spotmagnification views would be required. Elsewhere no suspiciouscluster of calcification, area of enterprise infrastructure architect ural distortion, orthree-dimensional spiculated masses. IMPRESSION1. Linear calcifications in the right breast requiring furtherevaluation with magnification views.2. BIRADS code 0 incomplete.3. Foll owup with additional views of the right breast. A letter regarding these results has been sent to the patient. This interpretation was rendered by a radiologist certified underthe Mammography Quality [place] Act of 1992 (MQSA). The mammogramswere also examined with computer- aided detection software([employer] Reported By: CASSIE QUINTEROS M.D. [id number] LIPID CHOL 223 mg/dL (Abnormal) Comments: <200 mg/dL Desirable 200-240 mg/dL Borderline >240 mg/dL High Risk HDL 56 mg/dL (Normal) Comments: Reference Range HDL <40 mg/dL Low HDL Cholesterol HDL >or= 60 mg/dL High HDL Cholesterol LDL 148 mg/dL (Abnormal) Range: 0-130 TRIG 93 mg/dL (Normal) Comments: Serum Triglycerides Reference Interval Normal <150 mg/dL Borderline high 150 - 199 mg/dL High 200 - 499 mg/dL Very High > or = 500 mg/dL VLDL 19 mg/dL (Normal) Range: 5-40 20-[id number]:17 LIVER ALB 3.5 g/dL (Normal) Range: 3.4-5.0 ALK P 77 U/L (Normal) Range: 50-136 ALT 33 [iU]/L (Normal) Range: 30-65 AST 18 U/L (Normal) Range: 15-37 D BILI 0.08 mg/dL (Normal) Range: 0.00-0.30 T BILI 0.35 mg/dL (Normal) Range: 0.00-1.00 T PROT 7.0 g/dL (Normal) Range: 6.4-8.2 :12 LIPID CHOL 185 mg/dL (Normal) Comments: <200 mg/dL Desirable 200-240 mg/dL Borderline >240 mg/dL High Risk HDL 57 mg/dL (Normal) Comments: Reference Range HDL <40 mg/dL Low HDL Cholesterol HDL >or= 60 mg/dL High HDL Cholesterol LDL 117 mg/dL (Normal) Range: 0-130 TRIG 53 mg/dL (Normal) Comments: Serum Triglycerides Reference Interval Normal <150 mg/dL Borderline high 150 - 199 mg/dL High 200 - 499 mg/dL Very High > or = 500 mg/dL VLDL 11 mg/dL (Normal) Range: 5-40 :12 LIVER ALB 3.7 g/dL (Normal) Range: 3.4-5.0 ALK P 63 U/L (Normal) Range: 50-136 ALT 37 [iU]/L (Normal) Range: 30-65 AST 23 U/L (Normal) Range: 15-37 D BILI 0.07 mg/dL (Normal) Range: 0.00-0.30 T BILI 0.41 mg/dL (Normal) Range: 0.00-1.00 T PROT 7.0 g/dL (Normal) Range: 6.4-8.2 :29 MAMM, UILAT DIAG DIGITAL & CAD Radiology Report See Note (Normal) Comments: Exam Number: [id number] MAMMOGRAM, LEFT UNILATERAL DIAGNOSTIC DIGITAL AND CAD HISTORYRoutine screening. TECHNIQUEFull field digital images were obtained in roll craniocaudal and spotcraniocaudal projecti ons. CAD images were reviewed. COMPARISONThe current study is compared to the examinations of 10/30, 01/30, and03/02/07. FINDINGSThere is a moderate to severe extent of fibroglandular parenchymapresent . There is no skin thickening or retraction, architecturaldistortion, or cluster of suspicious microcalcifications. Areas ofasymmetric parenchymal density identified on the examination of03/02/07 are not persistent on additional views. These findings mostlikely represent superimposition of normal parenchymal structures. Ifthere is no suspicious palpable abnormality, followup mammogram in oneyear i s recommended. IMPRESSIONThere is no radiographic evidence of malignancy identified. FINAL ASSESSMENTBenign findings. BIRADS Category 2. A letter regarding these results has been sent to the patient. T his interpretation was rendered by a radiologist certified under theMammography Quality Standards Act of 1992 (MQSA). The mammograms werealso examined with computer-aided detection software ([employer], [employer], [employer] Reported By: AUBRIE CROW M.D. :40 MAMM, BILAT SCRN DIGITAL & CAD Radiology Report See Note (Normal) Comments: Exam Number: [id number] MAMMOGRAM, BILATERAL SCREENING DIGITAL & CAD Full field digital images were obtained in mediolateral oblique and craniocaudal projection. CAD images were reviewed. The current studyis compared to the examinations of 10/30 and 01/30. There is amoderate to severe extent of fibroglandular parenchyma present. Thereis no skin thickening or retraction, architectural distortion, o rcluster of suspicious microcalcifications. There are three areas ofasymmetric parenchymal density seen in the left craniocaudalprojection. For further evaluation of these densities, rollcraniocaudals and spot craniocaudal views are recommended. IMPRESSION1) There are three areas of asymmetric parenchymal density on theleft. Additional views are recommended. FINAL ASSESSMENTNeed additional imag ing evaluation. BIRADS Category 0. A letter regarding the results has been sent to the patient. This interpretation was rendered by a radiologist certified under theMammography Quality Standards Act of 1992 (MQSA). The mammograms werealso examined with computer-aided detection software ([employer], [employer], [employer] Reported By: AUBRIE CROW M.D. :58 CULTURE, URINE URINE CULTURE See Note {CFU/mL} Comments: COLONY COUNT 25,000- 50,000 ORGANISM 1: PRESUMPTIVE E. COLI PRESUMPTIVE E. COLI: REACTION AMOXICILLIN/CLAVULANIC ACID $$ <=8 S A MPICILLIN (Normal) GN $ >=32 R CARBENICILLIN $$$ >=512 R CEFAZOLIN $ <=8 S CEFOXITIN $$ <=2 S CEFTRIAXONE $$$ <=8 S CEFUROXIME $$ <=4 S CIPROFLOXACIN GN $$$ <=0.5 S GENTAMICIN GN $ <=0.5 S LEVOFLOXACIN $$ <=1 S NALIDIXIC ACID $$$ <=16 S NITROFURANTOIN $ <=32 S OFLOXACIN $$$ <=1 S TETRACYCLINE $$ <=1 S TICARCILLIN GN NOT PSEUDO $$$ >=256 R TRIMETHOPRIM/SULFAMETHOXAZ $$ <=10 S [id number]:58 ROUTINE UA BILIRUBIN URINE SeeNote (Normal) Comments: Result: NEGATIVE CLARITY SeeNote (Normal) Comments: Result: SL CLOUDY COLOR YELLOW (Normal) GLUCOSE, UR SeeNote (Normal) Comments: Result: NEGATIVE KETONE UR TRACE mg/dL (Abnormal) LEUK ESTERASE 1+ (Abnormal) NITRITE UR SeeNote (Normal) Comments: Result: NEGATIVE OCCULT BLOOD-UR 1+ (Abnormal) pH UR 6.0 (Normal) Range: 5.0-8.0 PROT DIPSTX SeeNote (Normal) Comments: Result: NEGATIVE SP.GR. DIPSTX >=1.030 (Normal) Range: 1.002-1.030 UROBILI 0.2 EU/dl (Normal) Range: 0.2 - 1.0 31-[id number]:10 CBC HCT 41.3 % (Normal) Range: 37-47 HGB 14.2 g/dL (Normal) Range: 12.0-16.0 MCH 30.6 pg (Normal) Range: 27.0-32.0 MCHC 34.4 g/dL (Normal) Range: 32-36 MCV 88.9 fL (Normal) Range: 81-99 PLT 325 K/mm3 (Normal) Range: 150-450 RBC 4.65 {M/mm3} (Normal) Range: 4.2-5.4 RDW 13.3 % (Normal) Range: 11.6-14.6 WBC 6.4 K/mm3 (Normal) Range: 4.4-11.0 54-[id number]:10 COMP METABOLIC A/G 1.1 {RATIO} (Normal) Range: 0.9-2.4 ALB 4.0 g/dL (Normal) Range: 3.4-5.0 ALK P 72 U/L (Normal) Range: 50-136 ALT 37 [iU]/L (Normal) Range: 30-65 AST 23 U/L (Normal) Range: 15-37 BUN 19 mg/dL (Abnormal) Range: 7-18 BUN/CRE 23.8 {RATIO} (Abnormal) Range: 10-20 CA 9.6 mg/dL (Normal) Range: 8.5-10.1 CL 100 mmol/L (Normal) Range: 98-107 CO2 29.4 mmol/L (Abnormal) Range: 22.0-29.0 CREAT,SERUM 0.8 mg/dL (Normal) Range: 0.6-1.0 GAP 7 (Normal) Range: 5-15 GLOB 3.6 g/dL (Abnormal) Range: 2.3-3.5 GLU 83 mg/dL (Normal) Range: 70-110 K 4.7 mmol/L (Normal) Range: 3.5-5.1 NA 136 mmol/L (Normal) Range: 136-145 T BILI 0.68 mg/dL (Normal) Range: 0.00-1.00 T PROT 7.6 g/dL (Normal) Range: 6.4-8.2 25-Cjn-[id number]:10 PFLIP CHOL 231 mg/dL (Abnormal) Comments: <200 mg/dL Desirable 200-240 mg/dL Borderline >240 mg/dL High Risk HDL 57 mg/dL (Normal) Comments: Reference Range HDL <40 mg/dL Low HDL Cholesterol HDL >or= 60 mg/dL High HDL Cholesterol LDL 154 mg/dL (Abnormal) Range: 0-130 TRIG 98 mg/dL (Normal) Comments: Serum Triglycerides Reference Interval Normal <150 mg/dL Borderline high 150 - 199 mg/dL High 200 - 499 mg/dL Very High > or = 500 mg/dL VLDL 20 mg/dL (Normal) Range: 5-40 19-[id number]:10 ROUTINE UA BILIRUBIN URINE SeeNote (Normal) Comments: Result: NEGATIVE CLARITY CLEAR (Normal) COLOR YELLOW (Normal) GLUCOSE, UR SeeNote (Normal) Comments: Result: NEGATIVE KETONE UR SeeNote mg/dL (Normal) Comments: Result: NEGATIVE LEUK ESTERASE TRACE (Abnormal) NITRITE UR SeeNote (Normal) Comments: Result: NEGATIVE OCCULT BLOOD-UR SeeNote (Abnormal) Comments: Result: TRACE-INTACT pH UR 6.0 (Normal) Range: 5.0-8.0 PROT DIPSTX SeeNote (Normal) Comments: Result: NEGATIVE SP.GR. DIPSTX 1.025 (Normal) Range: 1.002-1.030 UROBILI 0.2 EU/dl (Normal) Range: 0.2 - 1.0 Plan of Care Name Dates Details Instructions BMI 23.0-23.9, adult : Follow up in 1 month Indication: BMI 23.0-23.9, adult Shoulder pain, right : Reviewed Lab Indication: Shoulder pain, right Benign essential hypertension : Reviewed Lab Indication: Benign essential hypertension Nonsmoker : Eprescribed prescriptions (G8553) Indication: Nonsmoker Abnormal urine : Reviewed Diagnostic Tests Indication: Abnormal urine Hyperlipidemia : Reviewed Lab Indication: Hyperlipidemia Abnormal urine : Eprescribed prescriptions (G8553) Indication: Abnormal urine Low back pain : Eprescribed prescriptions (G8553) Indication: Low back pain Nonsmoker : Follow up in 2 weeks Indication: Nonsmoker Benign essential hypertension : Reviewed Lab Indication: Benign essential hypertension Hemangioma : Reviewed Diagnostic Tests Indication: Hemangioma 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 BMI 25.0-25.9,adult : Follow up in 6 months Indication: BMI 25.0-25.9,adult Ceruminosis, bilateral (Renamed from Excessive cerumen in both ear canals) : Eprescribed prescriptions (G8553) Indication: Ceruminosis, bilateral (Renamed from Excessive cerumen in both ear canals) BMI 26.0-26.9,adult : Follow up in 2 weeks Indication: BMI 26.0-26.9,adult Hyperlipidemia : Eprescribed prescriptions (G8553) Indication: Hyperlipidemia Encounter for screening mammogram for breast cancer (Renamed from Encounter for screening mammogram for malignant neoplasm of breast) : Follow up in 3 months Indication: Encounter for screening mammogram for breast cancer (Renamed from Encounter for screening mammogram for malignant neoplasm of breast) Hyperlipidemia : Reviewed Lab Indication: Hyperlipidemia Hypernatremia : Reviewed Lab Indication: Hypernatremia Benign essential hypertension : Reviewed Lab Indication: Benign essential hypertension Benign essential hypertension : Eprescribed prescriptions (G8553) Indication: Benign essential hypertension Tachycardia : Follow up if no improvement or if symptoms worsen Indication: Tachycardia Benign essential hypertension : Eprescribed prescriptions (G8553) Indication: Benign essential hypertension Hyperlipidemia : Reviewed Lab Indication: Hyperlipidemia BMI 30.0-30.9,adult : Follow up in 3 months Indication: BMI 30.0-30.9,adult Benign essential hypertension : Eprescribed prescriptions (G8553) Indication: Benign essential hypertension Benign essential hypertension : Follow up in 3 months Indication: Benign essential hypertension Nonsmoker : Follow up in 3 months Indication: Nonsmoker Benign essential hypertension : Eprescribed prescriptions (G8553) Indication: Benign essential hypertension Hyperlipidemia : Eprescribed prescriptions (G8553) Indication: Hyperlipidemia Weight gain : Follow up in 3 weeks Indication: Weight gain Weight gain : Follow up in 3 months Indication: Weight gain Dysuria : Eprescribed prescriptions (G8553) Indication: Dysuria Encounter for Medicare annual wellness exam : advance planning information Indication: Encounter for Medicare annual wellness exam Well woman exam : Mammogram *: gynecological health Indication: Well woman exam SYNCOPE, NOS : Eprescribed prescriptions (G8553) Indication: SYNCOPE, NOS Need for prophylactic vaccination and inoculation against influenza : Flu (Influenza) *: flu shot Indication: Need for prophylactic vaccination and inoculation against influenza Hyperlipidemia : *Cholesterol - Medication Side Effects Indication: Hyperlipidemia Benign essential hypertension : High Blood Pressure (Essential Hypertension) *: essential hypertension Indication: Benign essential hypertension Hyperlipidemia : Health Maintenance: Controlling Cholesterol: diet Indication: Hyperlipidemia Cerumen impaction : Follow up 3 days for ear irrigation Indication: Cerumen impaction Hyperlipidemia : Follow up after lab work completed Indication: Hyperlipidemia Hyperlipidemia : Follow up in 6 months Indication: Hyperlipidemia Hyperlipidemia : High Cholesterol (Hypercholesterolemia) *: cardiovascular health Indication: Hyperlipidemia Hyperlipidemia : Follow up in 3 months Indication: Hyperlipidemia Osteoporosis : *Bisphosphonate Education Indication: Osteoporosis Calcium nephrolithiasis : FOLLOW UP IN 3 MONTHS for Gen Med with DB Indication: Calcium nephrolithiasis Hyperkalemia : Reviewed Lab Indication: Hyperkalemia Hypercholesterolemia : Reviewed Lab Indication: Hypercholesterolemia Pharyngitis, acute : *URI Treatment Indication: Pharyngitis, acute Pharyngitis, acute : Sore throat: diagnosis and treatment Indication: Pharyngitis, acute Other specified abnormal findings of blood chemistry : FOLLOW UP IN 1 MONTH Indication: Other specified abnormal findings of blood chemistry Other specified abnormal findings of blood chemistry : Reviewed Lab Indication: Other specified abnormal findings of blood chemistry SYNCOPE, NOS : Reviewed Diagnostic Tests Indication: SYNCOPE, NOS SYNCOPE, NOS : Reviewed Lab Indication: SYNCOPE, NOS Low back pain : exercises Indication: Low back pain Low back pain : FOLLOW UP IF NO IMPROVEMENT OR IF SYMPTOMS WORSEN Indication: Low back pain Low back pain : Low Back Pain Red Flags Indication: Low back pain Planned Observations IRON ([id number])Indication: Anemia On: 73-Dfl-431213:06 Request CBC, Platelets & Auto Diff ([id number])Indication: Anemia On: 72-Lef-182417:05 Request MICROALBUMIN: CREATININE RATIO ([id number]) AND ([id number])Indication: Benign essential hypertension On: :03 Request Comments: Jul 2017 URINALYSIS ([id number])Indication: Benign essential hypertension On: :03 Request Comments: Jul 2017 TSH ([id number])Indication: Benign essential hypertension On: :03 Request Comments: Jul 2017 CBC, Platelets & Auto Diff ([id number])Indication: Benign essential hypertension On: :03 Request Comments: Jul 2017 Metabolic Panel, Comprehensive ([id number])Indication: Benign essential hypertension On: :02 Request Comments: Jul 2017 URINALYSIS, W/ MICRO ([id number])Indication: Benign essential hypertension On: :22 Request METABOLIC PANEL, COMPREHENSIVE ([id number])Indication: Benign essential hypertension On: :22 Request LIPID PANEL ([id number])Indication: Benign essential hypertension On: :22 Request CBC with auto diff ([id number])Indication: Benign essential hypertension On: :22 Request Blood Glucose , Office ([id number])Indication: SYNCOPE, NOS On: 51-Aov-076226:23 Request LIPID PANEL ([id number])Indication: Hyperlipidemia On: 89-Pua-842391:37 Request HEPATIC FUNCTION PANEL ([id number])Indication: Hyperlipidemia On: 56-Vvj-017236:37 Request CALCIFIDIOL ([id number]) VIT D 25Indication: Osteoporosis On: :50 Request CALCIUM SERUM ([id number])Indication: Osteoporosis On: :48 Request TSH ([id number])Indication: Osteoporosis On: :48 Request UPEP ([id number])Indication: Osteoporosis On: :48 Request SPEP ([id number])Indication: Osteoporosis On: :47 Request SED RATE ERYTHROCYTE ([id number])Indication: Osteoporosis On: :47 Request PHOSPHORUS ([id number])Indication: Osteoporosis On: :47 Request PARATHORMONE ([id number])Indication: Osteoporosis On: :47 Request URINALYSIS, W/ MICRO ([id number])Indication: Benign essential hypertension On: 44-Gkd-543447:00 Request CBC with manual diff ([id number])Indication: Benign essential hypertension On: :40 Request Metabolic Panel, Comprehensive ([id number])Indication: Hyperkalemia On: :40 Request Lipid Panel ([id number])Indication: Hypercholesterolemia On: :40 Request METABOLIC PANEL, COMPREHENSIVE ([id number])Indication: Hypercholesterolemia On: :16 Request LIPID PANEL ([id number])Indication: Hypercholesterolemia On: :16 Request Comments: in three months (approximately) Metabolic Panel, Basic ([id number])Indication: Benign essential hypertension On: :15 Request Comments: 2 weeks GLUCOSE TOLERANCE TEST (GTT) 5 hour ([id number])Indication: SYNCOPE, NOS On: :49 Request Blood Glucose , Office ([id number])Indication: SYNCOPE, NOS On: 48-Vye-790609:47 Request Comments: 92 URINALYSIS W/O MICRO ([id number])Indication: Benign essential hypertension On: :35 Request METABOLIC PANEL, COMPREHENSIVE ([id number])Indication: Benign essential hypertension On: :35 Request LIPID PANEL ([id number])Indication: Benign essential hypertension On: :35 Request CBC WITH MANUAL DIFF ([id number])Indication: Benign essential hypertension On: :34 Request MICROALBUMIN: CREATININE RATIO ([id number]) AND ([id number])Indication: Benign essential hypertension On: :08 Request METABOLIC PANEL, COMPREHENSIVE ([id number])Indication: Benign essential hypertension On: :08 Request LIPID PANEL ([id number])Indication: Benign essential hypertension On: 27-Flb-626993:08 Request CBC WITH MANUAL DIFF ([id number])Indication: Benign essential hypertension On: 68-Ncy-344561:08 Request CBC (Auto)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
--- OUTSIDE RECORDS SUMMARY | 2018-12-20 23:16 | XMS RPT_ITS | Continuity of Care Document ---
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 NA 140 mmol/L (Normal) Range: 136-145 T BILI 0.90 mg/dL (Normal) Range: 0.20-1.00 ALT 25 U/L (Normal) Range: 13-56 Comments: Please note revised ALT reference range pnbsilrlf53/28/2018. ALK P 66 U/L (Normal) Range: 45-117 [...] 7-18 GLU 96 mg/dL (Normal) Range: 70-110 70-Grp-66850:58 Lipase Comments: [facility] [address] [place], [address] LIPASE 211 U/L (Normal) Range: 73-393 9-Mfd-469150:30 MICROALBUMIN: CREATININE RATIO Comments: PATIENT NOT FASTINGPERFORMED BY: [facility] Gebzqc4709 [facility] [id number] (40511) AND (83284) Microalb/Creat Ratio 3.2 {mg/g_creat} (Normal) Range: 0.0-30.0 Microalbumin, Urine 4.7 ug/mL (Normal) Creatinine, Urine 145.6 mg/dL (Normal) 6-Wii-350603:30 URINALYSIS (99813) Comments: PATIENT NOT FASTINGPERFORMED BY: [employer] Wvitro8934 [facility] [id number] Microscopic Examination MICNIP (Normal) Comments: Microscopic not indicated and not performed. Nitrite, Urine Negative (Normal) Urobilinogen,Semi-Qn 0.2 mg/dL (Normal) Range: 0.2-1.0 Bilirubin Negative (Normal) Occult Blood Negative (Normal) Ketones Trace (Abnormal) Glucose Negative (Normal) Protein Negative (Normal) WBC Esterase Negative (Normal) Appearance Clear (Normal) Urine-Color Yellow (Normal) pH 5.5 (Normal) Range: 5.0-7.5 Specific Mcneil 1.022 (Normal) Range: 1.005-1.030 7-Qbg-151691:30 TSH (THYROID STIMULATING Comments: PATIENT NOT FASTINGPERFORMED BY: [facility] CompaniesTrinitas HospitalSvhaqj1688 [facility] [id number] HORMONE) (66812) TSH 0.801 {uIU/mL} (Normal) Range: 0.450-4.500 0-Ptl-080713:30 CBC, PLATELETS & AUT DIFF Comments: PATIENT NOT FASTINGPERFORMED BY: [facility] CompaniesTrinitas HospitalNmiyzw0454 [facility] [id number] Information: [id number] (03382) Immature Grans (Abs) 0.0 {x10E3/uL} (Normal) Range: [...] 3.77-5.28 WBC 5.6 {x10E3/uL} (Normal) Range: 3.4-10.8 1-Sdk-597963:30 METABOLIC PANEL, COMPREHENSIVE Comments: PATIENT NOT FASTINGPERFORMED BY: [facility] Vppxmf1045 [facility] [id number] (78994) ALT (SGPT) 14 [iU]/L (Normal) Range: 0-32 [...] Glucose, Serum 96 mg/dL (Normal) Range: 65-99 31-Zep-097640:37 Lipid Panel (33079) Comments: around April 2017; PATIENT WAS FASTINGPERFORMED BY: ROBERT [facility]ormedixAleda [facility]. [facility]6370 [facility] [id number] LDL/HDL Ratio 1.1 {ratio_units} (Normal) Range: 0.0-3.2 Comments: LDL/HDL Ratio Men Women 1/2 Avg.Risk 1.0 1.5 Av g.Risk 3.6 3.2 2X Avg.Risk 6.2 5.0 3X Avg.Risk 8.0 6.1 LDL Cholesterol Calc 77 mg/dL (Normal) Range: 0-99 VLDL Cholesterol Marysol 23 mg/dL (Normal) Range: 5-40 HDL Cholesterol 72 mg/dL (Normal) Triglycerides 116 mg/dL (Normal) Range: 0-149 Cholesterol, Total 172 mg/dL (Normal) Range: 100-199 80-Yid-203284:37 POTASSIUM SERUM (12268) Comments: Order Date: 02/13/17Order Info: 2823-3 - KOrder Date: 02/13/17Order Info: 2823-3 - [facility] [address]ecglolu[address] [place], [place], [address] K 4.1 mmol/L (Normal) Range: 3.5-5.1 95-Pot-161963:20 Microscopic Examination Comments: PATIENT WAS FASTINGPERFORMED BY: LabAleda [facility]. [facility]6370 [facility] [id number] Bacteria None seen (Normal) Mucus Threads Present (Normal) Epithelial Cells (non renal) 0-10 {/hpf} (Normal) Range: 0 - 10 RBC None seen {/hpf} (Normal) Range: 0 - 2 WBC 0-5 {/hpf} (Normal) Range: 0 - 5 19-Pof-806478:20 METABOLIC PANEL, COMPREHENSIVE Comments: PATIENT WAS FASTINGPERFORMED BY: LabAleda [facility]6370 [facility] [id number] (25846) ALT (SGPT) 17 [iU]/L (Normal) Range: 0-32 [...] Glucose, Serum 81 mg/dL (Normal) Range: 65-99 91-Vsk-596810:20 URINALYSIS, W/ MICRO (93985) Comments: PATIENT WAS FASTINGPERFORMED BY: LabCoTrinitas HospitalNtmdca5371 [facility] [id number] Microscopic Examination See below: (Normal) Comments: Microscopic was indicated and was performed. Microscopic Examination MICRON (Normal) Comments: Microscopic follows if indicated. Nitrite, Urine Negative (Normal) Urobilinogen,Semi-Qn 0.2 mg/dL (Normal) Range: 0.2-1.0 Bilirubin Negative (Normal) Occult Blood Negative (Normal) Ketones Negative (Normal) Glucose Negative (Normal) Protein Negative (Normal) WBC Esterase Negative (Normal) Appearance Clear (Normal) Urine-Color Yellow (Normal) pH 6.5 (Normal) Range: 5.0-7.5 Specific Mcneil 1.013 (Normal) Range: 1.005-1.030 03-Ung-113804:20 CBC with auto diff (50113) Comments: PATIENT WAS FASTINGPERFORMED BY: [employer] Nlvfwk3840 [facility] [id number] Immature Grans (Abs) 0.0 {x10E3/uL} (Normal) Range: [...] 3.77-5.28 WBC 6.1 {x10E3/uL} (Normal) Range: 3.4-10.8 22-Jao-734253:20 TSH (95609) Comments: PATIENT WAS FASTINGPERFORMED BY: [employer] CompanyTrinitas HospitalIyuujy9551 [facility] [id number] TSH 0.689 {uIU/mL} (Normal) Range: 0.450-4.500 60-Fgl-909745:20 MICROALBUMIN: CREATININE RATIO Comments: PATIENT WAS FASTINGPERFORMED BY: [facility]6370 [facility] [id number] (63289) AND (11404) Microalb/Creat Ratio <6.5 {mg/g_creat} (Normal) Range: 0.0-30.0 Microalbumin, Urine <3.0 ug/mL (Normal) Creatinine, Urine 46.2 mg/dL (Normal) 5-Hih-180781:40 HEPATIC FUNCTION PANEL Comments: PATIENT WAS FASTINGPERFORMED BY: [employer] CompanyTrinitas HospitalUuzlra2530 [facility] [id number] (19821) ALT (SGPT) 38 [iU]/L (Abnormal) Range: 0-32 AST (SGOT) 35 [iU]/L (Normal) Range: 0-40 Alkaline Phosphatase, S 65 [iU]/L (Normal) Range: 39-117 Bilirubin, Direct 0.14 mg/dL (Normal) Range: 0.00-0.40 Bilirubin, Total 0.4 mg/dL (Normal) Range: 0.0-1.2 Albumin, Serum 4.3 g/dL (Normal) Range: 3.6-4.8 Protein, Total, Serum 6.8 g/dL (Normal) Range: 6.0-8.5 :40 LIPID PANEL (99947) Comments: PATIENT WAS FASTINGPERFORMED BY: [facility]ormedixAleda [facility]. [facility]6370 [facility] [id number] LDL/HDL Ratio 1.2 {ratio_units} (Normal) Range: 0.0-3.2 Comments: LDL/HDL Ratio Men Women 1/2 Avg.Risk 1.0 1.5 Av g.Risk 3.6 3.2 2X Avg.Risk 6.2 5.0 3X Avg.Risk 8.0 6.1 LDL Cholesterol Calc 84 mg/dL (Normal) Range: 0-99 VLDL Cholesterol Marysol 20 mg/dL (Normal) Range: 5-40 HDL Cholesterol 73 mg/dL (Normal) Triglycerides 98 mg/dL (Normal) Range: 0-149 Cholesterol, Total 177 mg/dL (Normal) Range: 100-199 1-Ytw-665789:45 Culture, Urine Comments: [facility] [address] [place], [address] CUUR See Note (Normal) Comments: Urine CultureRESULTS [...] >=320 R(NF) indicates non- formulary drug at [facility]. Approval by Infectious Disease Specialist required before non-formulary drugs may be ordered and/or dispensed. 68-Hte-868643:06 Urinalysis, Office (78987) UA - LEUKOCYTE ESTERASE Trace (Normal) UA - NITRITE Positive (Normal) URINE UROBILINGN RONALD TIMED Normal mg/dL (Normal) UA - PROTEIN Negative mg/dL (Normal) UA - PH 6 (Abnormal) UA - BLOOD Hemolyzed Small (Normal) UA - SPECIFIC GRAVITY 1.025 (Normal) UA - KETONES Negative mg/dL (Normal) UA - BILIRUBIN Negative (Normal) UA - GLUCOSE Negative (Normal) 10-Rjd-640255:13 CBC, Platelets & Auto Comments: PATIENT WAS FASTINGPERFORMED BY: [facility] Mkzxej4144 [address] [facility] [id number] Information: [id number] Diff (37458) Immature Grans (Abs) 0.0 {x10E3/uL} (Normal) Range: [...] 3.77-5.28 WBC 7.2 {x10E3/uL} (Normal) Range: 3.4-10.8 12-Muk-228822:13 TSH (00690) Comments: PATIENT WAS FASTINGPERFORMED BY: [facility]CoWander Lhrjzz2760 [facility] [id number] TSH 0.907 {uIU/mL} (Normal) Range: 0.450-4.500 47-Gqo-554309:13 Lipid Panel (40582) Comments: PATIENT WAS FASTINGPERFORMED BY: [facility] LabCoWander Zlnaar7752 [facility] [id number] LDL/HDL Ratio 2.2 {ratio_units} (Normal) Range: 0.0-3.2 [...] Cholesterol, Total 253 mg/dL (Abnormal) Range: 100-199 49-Jnj-518707:13 Metabolic Panel, Comprehensive Comments: PATIENT WAS FASTINGPERFORMED BY: LabCoTrinitas HospitalGmianb5017 [facility] [id number] (59264) ALT (SGPT) 25 [iU]/L (Normal) Range: 0-32 [...] Glucose, Serum 92 mg/dL (Normal) Range: 65-99 66-Biw-771426:58 URINE EPIFANIO CULTURE-RONALD COL Comments: Forward to Dr Eduardo, Urology, [place], [place]; PATIENT NOT FASTINGPERFORMED BY: [facility] Myagdx1996 [facility] [id number] Information: SRC:URC [id number] COUNT (64975) Result 1 MUG (Normal) Comments: Mixed urogenital flora5,000 Colonies/mL Urine Culture,Comprehensive Final report (Normal) 78-Hvx-901802:55 Urinalysis, Office (96646) UA - GLUCOSE Negative (Normal) UA - BILIRUBIN Negative (Normal) UA - KETONES Negative mg/dL (Normal) UA - SPECIFIC GRAVITY 1.025 (Normal) UA - BLOOD Hemolyzed Trace (Normal) UA - PH 6 (Abnormal) UA - PROTEIN Negative mg/dL (Normal) URINE UROBILINGN RONALD TIMED Normal mg/dL (Normal) UA - NITRITE Negative (Normal) UA - LEUKOCYTE ESTERASE Negative (Normal) :01 Vitamin D Hydroxy (86569) Comments: PATIENT NOT FASTINGPERFORMED BY: [facility]Aleda [facility]6370 [facility] [id number] Vitamin D, 25-Hydroxy 33.2 ng/mL (Normal) Range: 30.0-100.0 Comments: Vitamin D deficiency has been defined by the [place] ofMedicine and an Endocrine Society practice guideline as alevel of serum 25-OH vitamin D less than 20 ng/mL (1,2).The Endocrine Society went on to further define vitamin Dinsufficiency as a level between 21 and 29 ng/mL (2).1. IOM ([place] of Medicine). 2010. Dietary reference intakes for calcium and D. [place]: The National Academies Press.2. Mica MF, Dami NC, Sheri CHAVEZ, et al. Evaluation, treatment, and prevention of vitamin D deficiency: an Endocrine Society clinical practice guideline. JCEM. 2010; 96(7):1911-30. :01 SPEP (76835) Comments: PATIENT NOT FASTINGPERFORMED BY: [facility]6370 [facility] [id number] Information: [id number] Please note: SPRCS (Normal) Comments: Protein electrophoresis scan will follow via computer, mail, orcourier delivery. A/G Ratio 1.3 (Normal) Range: 0.7-2.0 Globulin, Total 3.2 g/dL (Normal) Range: 2.0-4.5 M-Faisal Not Observed g/dL (Normal) Gamma Globulin 1.1 g/dL (Normal) Range: 0.5-1.6 Beta Globulin 1.1 g/dL (Normal) Range: 0.6-1.3 Hqiiw-1-Lizfuiin 0.8 g/dL (Normal) Range: 0.4-1.2 Xzrfy-2-Maxtsief 0.3 g/dL (Normal) Range: 0.1-0.4 Albumin 4.2 g/dL (Normal) Range: 3.2-5.6 Protein, Total, Serum 7.4 g/dL (Normal) Range: 6.0-8.5 :01 TSH (32955) Comments: PATIENT NOT FASTINGPERFORMED BY: [facility] Drljew3695 [facility] [place] [id number] TSH 0.956 {uIU/mL} (Normal) Range: 0.450-4.500 1-Vhn-154019:01 PARATHORMONE (12227) Comments: PATIENT NOT FASTINGPERFORMED BY: [facility] Oejeuj8627 [facility] [place] [id number] PTH, Intact 53 pg/mL (Normal) Range: 15-65 2-Ibo-817809:01 SED RATE ERYTHROCYTE (79063) Comments: PATIENT NOT FASTINGPERFORMED BY: [facility] Mcyjgu0293 [facility] [facility] [place] [id number] Sedimentation Rate-Westergren 6 mm/h (Normal) Range: 0-40 7-Tha-547447:01 ALKALINE PHOSPHATASE (24309) Comments: PATIENT NOT FASTINGPERFORMED BY: [facility] Vpmjbs2819 [facility] [place] [id number] Alkaline Phosphatase, S 75 [iU]/L (Normal) Range: 39-117 5-Nky-538884:01 C-REACTIVE PROTEIN (72506) Comments: PATIENT NOT FASTINGPERFORMED BY: [facility] Gnlzck1836 [facility] [id number] C-Reactive Protein, Quant 1.5 mg/L (Normal) Range: 0.0-4.9 22-Nzv-254886:10 Urinalysis, Complete Comments: Order Date: 07/26/15How was Urine Obtained? CLEAN CATCHTest performed at:[facility] Gqipzrxpuv1384 [facility] [place] [address] MUCUS, URINE 0 SEEN {/hpf} [...] (Normal) CLARITY Clear (Normal) COLOR Yellow (Normal) 25-Llw-000497:26 Basic Metabolic Profile (BMP) Comments: Test performed at:[facility] Ymuuyluzxu5812 [place] [address] GAP 6 (Normal) Range: 5-15 [...] Comments: Please note revised CREATININE reference range owxbqgwnd34/22/2015. BUN 24 mg/dL (Abnormal) Range: 7-18 GLU 91 mg/dL (Normal) Range: 70-110 21-Hvc-636481:26 CBC W/Diff, Automated Comments: Test performed at:[facility] [address] [place] [address] Absolute Lymph 1.55 {X10_3/ul} (Normal) Range: 0.83-4.51 [...] 4.2-5.4 WBC 6.7 K/mm3 (Normal) Range: 4.4-11.0 62-Taq-895429:19 Hepatic Function Panel (7) Comments: PATIENT WAS FASTINGPERFORMED BY: LabCoTrinitas HospitalOvzgoe7508 [facility] [id number] ALT (SGPT) 17 [iU]/L (Normal) Range: 0-32 AST (SGOT) 24 [iU]/L (Normal) Range: 0-40 Alkaline Phosphatase, S 63 [iU]/L (Normal) Range: 39-117 Bilirubin, Direct 0.16 mg/dL (Normal) Range: 0.00-0.40 Bilirubin, Total 0.7 mg/dL (Normal) Range: 0.0-1.2 Albumin, Serum 4.6 g/dL (Normal) Range: 3.6-4.8 Protein, Total, Serum 7.2 g/dL (Normal) Range: 6.0-8.5 04-Thd-838525:19 Lipid Panel With LDL/HDL Comments: PATIENT WAS FASTINGPERFORMED BY: [facility] Ziyxeu4485 [facility] [id number] Information: [id number] Ratio LDL/HDL Ratio 2.6 {ratio_units} (Normal) Range: [...] Cholesterol, Total 257 mg/dL (Abnormal) Range: 100-199 00-Lnb-598336:14 Culture, Urine Comments: Test performed at:[facility] [address] [place] [address] CUUR See Note (Normal) Comments: [...] $ <=20 S(NF) indicates non-formulary drug at [facility]. Approval by Infectious Disease Specialist required before non- formulary drugs may be ordered and/or dispensed. 60-Zkq-795027:14 Urinalysis, Routine (Dipstick) Comments: How was Urine Obtained? CLEAN CATCHTest performed at:[facility] [address]sg[address]qyi[address] [place] [address] LEUK ESTERASE 100 /ul (Abnormal) OCCULT BLOOD-UR 10 /ul (Abnormal) NITRITE UR Positive (Abnormal) UROBILI Normal mg/dL (Normal) PROT DIPSTX Negative mg/dL (Normal) pH UR 7.0 (Normal) Range: 5.0 - 8.0 SP.GR. DIPSTX 1.010 (Normal) Range: 1.002-1.030 KETONE UR Negative mg/dL (Normal) BILIRUBIN URINE Negative mg/dL (Normal) GLUCOSE, UR Normal mg/dL (Normal) CLARITY Sl. Cloudy (Normal) COLOR Yellow (Normal) 34-Vxp-384296:16 URINE EPIFANIO CULTURE (RONALD Comments: PATIENT NOT FASTINGPERFORMED BY: LabCoTrinitas HospitalSpxubs5196 [facility] [id number] Information: SRC:UR [id number] COL COUNT) (87073) Result 1 CNSNSS (Abnormal) Comments: Coagulase negative [...] S Urine Final report Culture,Comprehens (Abnormal) tito 1-Tpe-015987:25 Culture, Urine Comments: Test performed at:[facility] [address]ql[address] [place] [address] CUUR See Note (Normal) Comments: Order Date: [...] $ <=20 S(NF) indicates non-formulary drug at [facility]. Approval by Infectious Disease Specialist required before non-formulary drugs may be ordered and/or dispensed. :24 MICROALBUMIN: CREATININE RATIO Comments: PATIENT WAS FASTINGPERFORMED BY: [employer] CompaniesMemorial Medical CenterOxvhof4792 [facility] [id number] (50979) AND (07889) Microalb/Creat Ratio 1.3 {mg/g_creat} (Normal) Range: 0.0-30.0 Microalbumin, Urine 1.5 ug/mL (Normal) Range: 0.0-17.0 Creatinine, Urine 118.7 mg/dL (Normal) Range: 15.0-278.0 :24 METABOLIC PANEL, COMPREHENSIVE Comments: PATIENT WAS FASTINGPERFORMED BY: [employer] CompanyTrinitas HospitalYerngq1922 [facility] [id number] (35521) ALT (SGPT) 22 [iU]/L (Normal) Range: 0-32 [...] Glucose, Serum 82 mg/dL (Normal) Range: 65-99 43-Zjd-59190:24 LIPID PANEL (50578) Comments: PATIENT WAS FASTINGPERFORMED BY: [facility]6370 [facility] [id number] LDL/HDL Ratio 2.6 {ratio_units} (Normal) Range: 0.0-3.2 Comment: LDLCOM (Normal) Comments: Possible Familial Hypercholesterolemia. FH should be suspected whenfasting LDL cholesterol is above 189 mg/dL or non-HDL cholesterolis above 219 mg/dL. A family history of high cholesterol and heartdise ase in 1st degree relatives should be collected. J Clin Qnkjfyc0123;5:133-140 LDL Cholesterol Calc 206 mg/dL (Abnormal) Range: 0-99 VLDL Cholesterol Marysol 16 mg/dL (Normal) Range: 5-40 HDL Cholesterol 79 mg/dL (Normal) Comments: According to ATP-III Guidelines, HDL-C >59 mg/dL is considered anegative risk factor for CHD. Triglycerides 82 mg/dL (Normal) Range: 0-149 Cholesterol, Total 301 mg/dL (Abnormal) Range: 100-199 14-Wvj-90387:24 CBC WITH MANUAL DIFF Comments: PATIENT WAS FASTINGPERFORMED BY: [facility]6370 [facility] [id number] Information: [id number] (81231) Immature Grans (Abs) 0.0 {x10E3/uL} (Normal) Range: [...] 3.77-5.28 WBC 4.8 {x10E3/uL} (Normal) Range: 3.4-10.8 1-Tkt-578052:31 BILAT SCRN DIGITAL & CAD Radiology Report [...] Amor M.D.January 31, 2013 at 1:16:07 PM [id number] Signed GP/GP If you are the referring physician and wou ld like to consult with theradiologist who provided this interpretation, please contact Yan Enriquez at [phone]. If this radiologist is unavailable, youwill be directed to another radiol ogist to assist. If you are a patient with a question regarding this report, pleasecontactyour referring physician directly. Professional Interpretation Provided By: [employer], Phone ,Fa x [phone] These documents contain legally protected and confidential [...] 01/31/13 1326 Sign by: Tylor Amor MD 6-Uxd-668686:31 DEXA BONE DENSITY STUDY (HP) Radiology Report [...] osteopenic, as outlined above, according toWorldHealth Organization (WH O) criteria. Fracture risk is [...] Amor M.D.January 31, 2013 at 1:13:05 PM [id number] Signed GP/GP If you are the referring ph ysician and would like to consult with theradiologist who provided this interpretation, please contact Yan Enriquez at [phone]. If this radiologist is unavailable, youwill be directed to another radiologist to assist. If you are a patient with a question regarding this report, pleasecontactyour referring physician directly. Professional Interpretation Provided By: [employer], Phone , These documents contain legally protected [...] destructionofthese documents. Dictated on 01/31/13 1235 by Yordy Amor MDranscribed on 01/31/13 131 by ITS IMPORTSign by Tylor Amor MD on 01/31/13 1318 Sign by: Tylor Amor MD 32-Oda-72741:51 LIPID PANEL (83222) Comments: PATIENT WAS FASTINGPERFORMED BY: [facility]6370 [facility] [id number] Information: [id number] LDL Cholesterol Calc 162 mg/dL (Abnormal) Range: 0-99 LDL/HDL Ratio 2.7 {ratio_units} (Normal) Range: 0.0-3.2 VLDL Cholesterol Marysol 24 mg/dL (Normal) Range: 5-40 HDL Cholesterol 61 mg/dL (Normal) Comments: According to ATP-III Guidelines, HDL-C >59 mg/dL is considered anegative risk factor for CHD. Triglycerides 122 mg/dL (Normal) Range: 0-149 Cholesterol, Total 247 mg/dL (Abnormal) Range: 100-199 39-Rdd-560042:18 Microscopic Examination Comments: PATIENT WAS FASTINGPERFORMED BY: [facility]6370 [facility] [id number] Bacteria None seen (Normal) Epithelial Cells (non renal) 0-10 {/hpf} (Normal) Range: 0 - 10 RBC 0-3 {/hpf} (Normal) Range: 0 - 3 WBC 0-5 {/hpf} (Normal) Range: 0 - 5 77-Edp-004988:18 METABOLIC PANEL, COMPREHENSIVE Comments: PATIENT WAS FASTINGPERFORMED BY: [facility]6370 [facility] [id number] (52118) ALT (SGPT) 16 [iU]/L (Normal) Range: 0-40 [...] Glucose, Serum 88 mg/dL (Normal) Range: 65-99 94-Gyt-667416:18 URINALYSIS, W/ MICRO (03423) Comments: PATIENT WAS FASTINGPERFORMED BY: [email or web address] [id number] Microscopic Examination See below: (Normal) Microscopic Examination MICRON (Normal) Comments: Microscopic follows if indicated. Nitrite, Urine Negative (Normal) Urobilinogen,Semi-Qn 0.2 mg/dL (Normal) Range: 0.0-1.9 Bilirubin Negative (Normal) Occult Blood Negative (Normal) Ketones Negative (Normal) Glucose Negative (Normal) Protein Negative (Normal) WBC Esterase Negative (Normal) Appearance Clear (Normal) Urine-Color Yellow (Normal) pH 5.5 (Normal) Range: 5.0-7.5 Specific Mcneil 1.018 (Normal) Range: 1.005-1.030 19-Kpr-922768:18 LIPID PANEL (74369) Comments: PATIENT WAS FASTINGPERFORMED BY: [email or web address] [id number] LDL/HDL Ratio 2.8 {ratio_units} (Normal) Range: 0.0-3.2 [...] 100-199 Comments: Please note reference interval change 80-Ldh-251278:18 CBC WITH MANUAL DIFF Comments: PATIENT WAS FASTINGPERFORMED BY: ROBERT LabCoTrinitas HospitalGielvm0686 [facility] [id number] Information: [id number] (40539) Immature Grans (Abs) 0.0 {x10E3/uL} (Normal) Range: [...] 3.77-5.28 WBC 4.4 {x10E3/uL} (Normal) Range: 4.0-10.5 37-Xls-74416:52 Lipid Panel (78917) Comments: PATIENT WAS FASTINGPERFORMED BY: LabCoTrinitas HospitalZtxzqg3840 [address] [place] [id number] Information: [id number] LDL/HDL Ratio 2.2 {ratio_units} (Normal) Range: 0.0-3.2 LDL Cholesterol Calc 146 mg/dL (Abnormal) Range: 0-99 VLDL Cholesterol Marysol 23 mg/dL (Normal) Range: 5-40 HDL Cholesterol 67 mg/dL (Normal) Comments: According to ATP-III Guidelines, HDL-C >59 mg/dL is considered anegative risk factor for CHD. Triglycerides 115 mg/dL (Normal) Range: 0-149 Cholesterol, Total 236 mg/dL (Abnormal) Range: 100-199 21-Wqv-140804:32 BILAT SCRN DIGITAL & CAD Radiology Report [...] has been nosignificant change since the prior st ud. IMPRESSION:Stable bilateral screening mammogram. Yearly follow-up recommended. (A) ASSESSMENT CATEGORY:BIRADS Category 2: Benign finding(s). A letter regarding these resultswill be sent to the patient by the facility within 30 days. Approximately 10% of breast cancers are not detected by mammography. Anormal mammogram should not delay biopsy of a clinically suspiciousabnormality. To consult with a radiologist regarding this report, please call our 02X1cpcarny line @ Dictated on 01/18/12 1254 by Mt COLLINS,Yordyranscribed on 01/18/12 1457 by ITS IMPORTSign by Tylor Silverio MD on 01/18/12 1458 Sign by: Mt COLLINSTylor 99-Fii-502108:12 POTASSIUM SERUM (94533) Comments: PATIENT NOT FASTINGPERFORMED BY: ROBERT [facility] [address] [place] [id number] Information: [id number] Potassium, Serum 5.2 mmol/L (Normal) Range: 3.5-5.2 :15 CBCD,SMEAR DIFF RED CELL MORPH SeeNote {NORMAL} [...] 200-240 mg/dL Borderline >240 mg/dL High Risk 99-Xls-696689:37 CBCD,SMEAR DIFF RED CELL MORPH SeeNote {NORMAL} [...] Serum 9.8 mg/dL (Normal) Comments: PERFORMED BY: [facility] [id number] Range: 8.6-10.2 : Phosphorus, Serum 3.6 mg/dL (Normal) Comments: PERFORMED BY: [facility] [id number] 59 Range: 2.5-4.5 :59 Protein Electro, Random Urine Comments: PERFORMED BY: [employer] Rolon [facility]Nov[facility] [id number] Please note: SPRCS (Normal) Comments: Protein electrophoresis scan will follow via computer, mail, orcourier delivery. Gamma Globulin, U 19.1 % (Normal) M-Faisal, % Not Observed % (Normal) Beta Globulin, U 32.4 % (Normal) Ylqdw-1-Akzptwru, U 20.5 % (Normal) Jtsgm-0-Uerqpenp, U 4.1 % (Normal) Albumin, U 23.9 % (Normal) Protein,Total,Urine 6.5 mg/dL (Normal) Range: 0.0-15.0 :59 Protein Electro.,S Comments: PERFORMED BY: [employer] Rolon [facility]Nov[facility] [id number] Please note: SPRCS (Normal) Comments: Protein electrophoresis scan will follow via computer, mail, orcourier delivery. A/G Ratio 1.2 (Normal) Range: 0.7-2.0 Globulin, Total 3.2 g/dL (Normal) Range: 2.0-4.5 M-Faisal Not Observed g/dL (Normal) Gguia-1-Njgchyux 0.2 g/dL (Normal) Range: 0.1-0.4 Pyijl-2-Yknkqhqd 0.8 g/dL (Normal) Range: 0.4-1.2 Beta Globulin 1.1 g/dL (Normal) Range: 0.6-1.3 Gamma Globulin 1.1 g/dL (Normal) Range: 0.5-1.6 Albumin 3.9 g/dL (Normal) Range: 3.2-5.6 Protein, Total, Serum 7.1 g/dL (Normal) Range: 6.0-8.5 PTH, Intact 27 pg/mL (Normal) Comments: PERFORMED BY: [employer] [facility] [id number] 5:59 Range: 15-65 Sedimentation 5 mm/h (Normal) Comments: PERFORMED BY: [employer] [facility] [id number] 5:59 Rate-Westergren Range: 0-30 TSH 1.050 {uIU/mL} Comments: PERFORMED BY: [employer] [facility] [id number] 5:59 (Normal) Range: 0.450-4.500 Vitamin D, 25-Hydroxy 39.3 ng/mL Comments: PERFORMED BY: [employer]6370 [facility] [id number] 5:59 (Normal) Range: 32.0-100.0 Comments: Recent studies consider the lower limit of 32.0 ng/mL to be athreshold for optimal health.Carrington BW. J Nutr. 2004;135(2):317-22. :55 BILAT SCRN DIGITAL & CAD Radiology Report [...] be [facility] within 30 days. Approximately 10% of breast cancers are not detected by mammography. Anormal mammogram should not delay biopsy of a clinically suspiciousabnormality. Dictated on 12/30/10 1348 Yordy Ortizranscribed on 01/05/11 1047 by ITS IMPORTSign by Tylor Amor on 01/05/11 1048 Sign by: Tylor Amor 8-Jxz-791776:54 DEXA BONE DENSITY STUDY (HP) Radiology Report See Note (Normal) Comments: CLINICAL:Female, 60 years old. The patient is postmenopausal. EXAMINATION:DUAL ENERGY X-RAY ABSORPTIOMETRY / DEXA. TECHNIQUE:Bone Mineral Density (BMD) measurements of lumbar spine and bila teralhipswer e obtained using a HelpHub scanner.. COMPARISON:Comparison is made with prior study [...] on 12/30/10 1407 Sign by: Tylor Amor 4-Mpd-910847:03 METABOLIC PANEL, COMPREHENSIVE Comments: PATIENT WAS FASTINGPERFORMED BY: [facility]CoTr[facility] HospitalEduzvx3014 [facility] [id number] ([id number]) ALT (SGPT) 17 [iU]/L (Normal) Range: 0-40 [...] Glucose, Serum 97 mg/dL (Normal) Range: 65-99 9-Dbo-336579:03 LIPID PANEL (71112) Comments: PATIENT WAS FASTINGPERFORMED BY: [employer]6370 Rolon [facility] [id number] LDL Cholesterol Calc 176 mg/dL (Abnormal) Range: 0-99 LDL/HDL Ratio 2.7 {ratio_units} (Normal) Range: 0.0-3.2 VLDL Cholesterol Marysol 31 mg/dL (Normal) Range: 5-40 Cholesterol, Total 272 mg/dL (Abnormal) Range: 100-199 HDL Cholesterol 65 mg/dL (Normal) Comments: According to ATP-III Guidelines, HDL-C >59 mg/dL is considered anegative risk factor for CHD. Triglycerides 157 mg/dL (Abnormal) Range: 0-149 :03 CBC WITH MANUAL DIFF Comments: PATIENT WAS FASTINGPERFORMED BY: [employer]6370 [facility] [id number] Information: [id number] (09535) Baso (Absolute) 0.1 {x10E3/uL} (Normal) Range: 0.0-0.2 [...] PANEL, COMPREHENSIVE Comments: PATIENT WAS FASTINGPERFORMED BY: [facility]CoTrinitas HospitalOwxrdr6014 [facility] [id number] (42144) ALT (SGPT) 23 [iU]/L (Normal) Range: 0-40 [...] Glucose, Serum 89 mg/dL (Normal) Range: 65-99 29-Jun-20108:38 LIPID PANEL (58659) Comments: PATIENT WAS FASTINGPERFORMED BY: [facility]CoMemorial Medical CenterMmzwgk3433 [facility] [id number] LDL Cholesterol Calc 143 mg/dL (Abnormal) Range: [...] three months (approximately); PATIENT WAS FASTINGPERFORMED BY: [facility]6370 [facility] [id number] Information: ADD [id number] AND DRAW FEE 99 8869 (51424) Baso (Absolute) 0.0 {x10E3/uL} (Normal) Range: 0.0-0.2 [...] 3.80-5.10 WBC 4.4 {x10E3/uL} (Normal) Range: 4.0-10.5 :03 BMP BUN/CRE 24.4 {RATIO} (Abnormal) Range: 10-20 [...] (Normal) GLU 91 mg/dL (Normal) Range: 70-110 05-Nam-75960:00 EPIFANIO CULTURE-OTHER (47448) Comments: PATIENT NOT FASTINGPERFORMED BY: [facility] Fyrjsp1726 [facility] [id number] Information: SRC: THROAT Result 1 RRF (Normal) Comments: Routine respiratory michelle Upper Respiratory Culture Final report (Normal) 31-Amy-280550:43 Rapid Strep Test, Office (99162) Rapid Strep Test, Office Negative (Normal) 84-Pno-24360:35 CBCD,SMEAR DIFF CELLS COUNTED 100 (Normal) EOS [...] Report See Note (Normal) Comments: Exam Number: [id number] CLINICAL:Syncope and CT BRAIN WITH AND WITHOUT [...] There is no rmal enhancement of the quechan of [place], without a demonstrated aneurysm. Normal osseous calvarium, visualized facial bones, central skull base, and temporal bones without a demonstrated fracture or de structive process. Normal soft tissue structures of the calvarium. Normal visualized paranasal sinuses without mucosal thickening or air-fluid levels. IMPRESSION:Normal enhanced CT scan of the brain wi thout an acute or evolving intracranial process. Reported By: JERILYN PERRY 62-Wjm-595596: GLU GTT-5 HOUR 73 mg/dL (Normal) Comments: 5HR GTT GLU 5 HR GLU GTT-5 HOUR from 921:P47797S. 37 Range: 70-110 : GLU GTT-4 HOUR <TEST NOT PERFORMED> Comments: 5HR GTT GLU 4 HR GLU GTT-4 HOUR from 921:F30441N. 45 mg/dL (Normal) Range: 70-110 : GLU GTT-3 HOUR 78 mg/dL (Normal) Comments: 5HR GTT GLU 3 HR GLU GTT-3 HOUR from 921:W64832C. 40 Range: 70-110 66-Wxd-536543: GLU GTT-2 HOUR 134 mg/dL (Abnormal) Comments: 5HR GTT GLU 2 HR GLU GTT-2 HOUR from 921:Z80239M. 40 Range: 70-120 :4 GLU GTT-1 HOUR 155 mg/dL (Normal) Comments: 5HR GTT GLU 1 HR GLU GTT-1 HOUR from 0922:P97745V. 0 Range: 120-170 :0 GLU GTT-30 min. 180 mg/dL (Abnormal) Comments: 5HR GTT GLU 1/2 HR GLU GTT-30 min. from 0922:B32553Q. 8 Range: 110-170 Comments: SPECIMEN GROSSLY HEMOLYZED :3 GLU GTT-FASTING 104 mg/dL (Normal) Comments: 5HR GTT FASTING GLU GTT-FASTING from 0922:M18342D. 5 Range: 70-110 Comments: GLUCOSE TOLERANCE TEST Reference Interval Non- Adults Fasting 70 - 110 30 minutes 110 - 170 1 hour 120 - 170 2 hour 70 - 120 3 hour 70 - 110 4 hour 70 - 110 5 hour 70 - 110 :3 BEDSIDE GLU 97 mg/dL (Normal) Range: 70-110 3 Comments: Policy and Physicians Orders followed 53-Wgi-206746:47 Urinalysis, Office (57591) UA - BILIRUBIN Small (Normal) UA - BLOOD Hemolyzed Small (Normal) UA - GLUCOSE Negative (Normal) UA - KETONES Negative mg/dL (Normal) UA - LEUKOCYTE ESTERASE Small (Normal) Comments: aw UA - NITRITE Negative (Normal) UA - PH 5.0 (Normal) UA - PROTEIN Negative mg/dL (Normal) UA - SPECIFIC GRAVITY 1.025 (Normal) URINE UROBILINGN RONALD TIMED Normal mg/dL (Normal) 38-Sbt-381650:23 UNILAT RT DIAG DIGITAL & CAD Radiology Report See Note (Normal) Comments: Exam Number: [id number] MAMMOGRAM, UNILATERAL RIGHT DIAGNOSTIC DIGITAL AND CAD [...] werealso e xamined with computer-aided detection software (Clean[employer].). Reported By: AUBRIE CROW M.D. 53-Spa-354710:19 ABDOMEN W/WO IV CONTRAST Radiology Report See Note (Normal) Comments: Exam Number: [id number] CLINICAL:Liver lesion CT ABDOMEN WITH AND WITHOUT [...] sponge kidneys. Reported By: GREGG GLEZ M.D. 21-Qll-14274:28 SERUM CRE & GFR Comments: CALL RESULTS TO [phone] CREAT,SERUM 0.8 mg/dL (Normal) Range: 0.6-1.0 EST GFR 78 mL/min (Normal) EST GFR - AA 95 mL/min (Normal) 35-Vmg-94719:29 CERV SPINE,MIN 4 VIEWS Radiology Report See Note (Normal) Comments: Exam Number: [id number] CERVICAL SPINE SERIES, MULTIPLE VIEWS INCLUDING BILATERAL [...] spine series. Reported By: EMMA JETT M.D. 8-Tle-434817:16 UNILAT RT DIAG DIGITAL & CAD Radiology Report See Note (Normal) Comments: Exam Number: [id number] MAMMOGRAM, UNILATERAL RIGHT DIAGNOSTIC DIGITAL AND CAD [...] mammograms werealso examined with computer-aided detection software ([employer], [employer] Reported By: AUBRIE CROW M.D. 48-Nyw-012890:46 BILAT SCRN DIGITAL & CAD Radiology Report See Note (Normal) Comments: Exam Number: [id number] BILATERAL SCREENING MAMMOGRAPHY HISTORYRoutine screening. COMPARISONComparison is [...] Elsewhere no suspiciouscluster of calcification, area of senior it architect ural distortion, orthree-dimensional spiculated masses. IMPRESSION1. Linear calcifications in the right breast requiring furtherevaluation with magnification views.2. BIRADS code 0 incomplete.3. Foll owup with additional views of the right breast. A letter regarding these results has been sent to the patient. This interpretation was rendered by a radiologist certified underthe Mammography Quality [place] and[place] Act of 1991 (MQSA). The mammogramswere also examined with computer- aided detection software([employer] Reported By: CASSIE QUINTEROS M.D. 39-Dus-720744:17 LIPID CHOL 223 mg/dL (Abnormal) Comments: <200 [...] mg/dL VLDL 19 mg/dL (Normal) Range: 5-40 38-Pky-873748:17 LIVER ALB 3.5 g/dL (Normal) Range: 3.4-5.0 [...] T PROT 7.0 g/dL (Normal) Range: 6.4-8.2 54-Cur-004269:29 MAMM, UILAT DIAG DIGITAL & CAD Radiology Report See Note (Normal) Comments: Exam Number: [id number] MAMMOGRAM, LEFT UNILATERAL DIAGNOSTIC DIGITAL AND CAD [...] mammograms werealso examined with computer-aided detection software ([employer], [id number] Reported By: AUBRIE CROW M.D. :40 MAMM, BILAT SCRN DIGITAL & CAD Radiology Report See Note (Normal) Comments: Exam Number: [id number] MAMMOGRAM, BILATERAL SCREENING DIGITAL & CAD Full [...] mammograms werealso examined with computer-aided detection software ([employer], [employer] Reported By: AUBRIE CROW M.D. :58 CULTURE, [...] $$$ >=256 R TRIMETHOPRIM/SULFAMETHOXAZ $$ <=10 S :58 ROUTINE UA BILIRUBIN URINE SeeNote (Normal) Comments: [...] 0.2 EU/dl (Normal) Range: 0.2 - 1.0 :10 CBC HCT 41.3 % (Normal) Range: 37-47 HGB 14.2 g/dL (Normal) Range: 12.0-16.0 MCH 30.6 pg (Normal) Range: 27.0-32.0 MCHC 34.4 g/dL (Normal) Range: 32-36 MCV 88.9 fL (Normal) Range: 81-99 PLT 325 K/mm3 (Normal) Range: 150-450 RBC 4.65 {M/mm3} (Normal) Range: 4.2-5.4 RDW 13.3 % (Normal) Range: 11.6-14.6 WBC 6.4 K/mm3 (Normal) Range: 4.4-11.0 :10 COMP METABOLIC A/G 1.1 {RATIO} (Normal) Range: [...] T PROT 7.6 g/dL (Normal) Range: 6.4-8.2 96-Urr-659475:10 PFLIP CHOL 231 mg/dL (Abnormal) Comments: <200 [...] mg/dL VLDL 20 mg/dL (Normal) Range: 5-40 77-Gsa-608190:10 ROUTINE UA BILIRUBIN URINE SeeNote (Normal) Comments: [...] Indication: Low back pain Planned Observations IRON (99734)Indication: Anemia On: 82-Hpp-596801:06 Request CBC, Platelets & Auto Diff (43552)Indication: Anemia On: 56-Kaq-702959:05 Request MICROALBUMIN: CREATININE RATIO (64008) AND (71600)Indication: Benign essential hypertension On: 81-Sjr-958116:03 Request Comments: Jul 2017 URINALYSIS (70528)Indication: Benign essential hypertension On: :03 Request Comments: Jul 2017 TSH (12127)Indication: Benign essential hypertension On: :03 Request Comments: Jul 2017 CBC, Platelets & Auto Diff (24648)Indication: Benign essential hypertension On: :03 Request Comments: Jul 2017 Metabolic Panel, Comprehensive (77462)Indication: Benign essential hypertension On: :02 Request Comments: Jul 2017 URINALYSIS, W/ MICRO (71004)Indication: Benign essential hypertension On: :22 Request METABOLIC PANEL, COMPREHENSIVE (18868)Indication: Benign essential hypertension On: :22 Request LIPID PANEL (41487)Indication: Benign essential hypertension On: : Request CBC with auto diff (72749)Indication: Benign essential hypertension On: :22 Request Blood Glucose , Office (67205)Indication: SYNCOPE, NOS On: 16-Pqw-672344:23 Request LIPID PANEL (67663)Indication: Hyperlipidemia On: :37 Request HEPATIC FUNCTION PANEL (53835)Indication: Hyperlipidemia On: 98-Zcu-567426:37 Request CALCIFIDIOL (66758) VIT D 25Indication: Osteoporosis On: :50 Request CALCIUM SERUM (83901)Indication: Osteoporosis On: 90-Pcl-689792:48 Request TSH (49068)Indication: Osteoporosis On: :48 Request UPEP (48383)Indication: Osteoporosis On: :48 Request SPEP (04689)Indication: Osteoporosis On: :47 Request SED RATE ERYTHROCYTE (49052)Indication: Osteoporosis On: :47 Request PHOSPHORUS (23186)Indication: Osteoporosis On: 87-Teq-753413:47 Request PARATHORMONE (02306)Indication: Osteoporosis On: :47 Request URINALYSIS, W/ MICRO (70928)Indication: Benign essential hypertension On: :00 Request CBC with manual diff (49334)Indication: Benign essential hypertension On: :40 Request Metabolic Panel, Comprehensive (19409)Indication: Hyperkalemia On: :40 Request Lipid Panel (21896)Indication: Hypercholesterolemia On: :40 Request METABOLIC PANEL, COMPREHENSIVE (24706)Indication: Hypercholesterolemia On: :16 Request LIPID PANEL (07325)Indication: Hypercholesterolemia On: 32-Tjo-139125:16 Request Comments: in three months (approximately) Metabolic Panel, Basic (92382)Indication: Benign essential hypertension On: :15 Request Comments: 2 weeks GLUCOSE TOLERANCE TEST (GTT) 5 hour (22750)Indication: SYNCOPE, NOS On: 86-Bkc-222571:49 Request Blood Glucose , Office (84183)Indication: SYNCOPE, NOS On: 04-Dmf-698951:47 Request Comments: 92 URINALYSIS W/O MICRO (22578)Indication: Benign essential hypertension On: 02-Akv-434944:35 Request METABOLIC PANEL, COMPREHENSIVE (67784)Indication: Benign essential hypertension On: 57-Bve-859409:35 Request LIPID PANEL (06981)Indication: Benign essential hypertension On: :35 Request CBC WITH MANUAL DIFF (36844)Indication: Benign essential hypertension On: 23-Bso-066335:34 Request MICROALBUMIN: CREATININE RATIO (70933) AND (92043)Indication: Benign essential hypertension On: 10-Yqe-276002:08 Request METABOLIC PANEL, COMPREHENSIVE (87813)Indication: Benign essential hypertension On: 03-Ric-614815:08 Request LIPID PANEL (25763)Indication: Benign essential hypertension On: 63-Cfh-516870:08 Request CBC WITH MANUAL DIFF (27420)Indication: Benign essential hypertension On: 62-Plt-963989:08 Request CBC (Auto) (67314)Indication: Hypercholesterolemia On: 0-Mpv-688290:47 Request Metabolic Panel, Comprehensive (79597)Indication: Hypercholesterolemia On: 6-Lsg-534941:47 Request Lipid Panel (39085)Indication: Hypercholesterolemia On: 8-Nnp-895622:46 Request Comments: in three months (approximately) HEPATIC FUNCTION PANEL (49336)Indication: Hypercholesterolemia On: 19-Tbl-280323:21 Request LIPID PANEL (51791)Indication: Hypercholesterolemia On: 54-Dpo-000376:21 Request Comments: in six months Planned Encounters Medical; 1 Month FU - On: 15-Oct-2018 15:15 [facility] Peggy Lott CNP, CNP, Mary E Planned Procedures Radiology - Shoulder - RightBy: On: 10-Sep-2018 Intent Peggy Lott CNP, CNP, Mary E Toradol Injection, 30 mg (J1885)By: On: 27-Feb-2018 Intent Peggy Lott CNP, CNP, Peggy Saldana Toradol Injection, 30 mg (J1885)By: On: 19-Feb-2018 Intent Oren MIHIRPeggy MIHIR Peggy Saldana Radiology - Cervical SpineBy: Ciesa On: 19-Feb-2018 Intent Peggy ASH MIHIRPeggy Wax Currettes (67280)By: Slarb PLANISHER, On: 26-Jan-2018 Intent Reyna Ear Irrigation (64167)By: Slarb On: 26-Jan-2018 Intent PLANISHER, Reyna PARATHYROID SCAN WITH MIBI AND I-123 On: 14-Jan-2018 Intent (02843)By: Oren ASHPeggy MIHIRPeggy Toradol Injection, 30 mg (J1885)By: On: 12-Jan-2018 Intent Oren ASH Peggy Saldana Sydneetomstanley ASH Peggy Saldana SCREENING DIGITAL TOMOSYNTHESIS OF On: 06-Sep-2017 Intent BREAST (84382)By: Oren ASH Thuy Citomstanley ASH Thuy DEXA SCAN AXIAL SKELETON (97234)By: On: 06-Sep-2017 Intent Oren ASH Peggy Saldana Sydneetomstanley ASH Thuy Holter Monitor 24 hrsBy: Oren ASH, On: 23-Jun-2017 Intent Peggy Saldana Oren ASH Thuy ELECTROCARDIOGRAM, COMPLETE (ECG) On: 23-Jun-2017 Intent (87634)By: Oren ASH ThuyLes Lott CNP Thuy ELECTROCARDIOGRAM, COMPLETE (ECG) On: 10-Aug-2016 Intent (41229)By: Peggy Lott CNP, CNP Thuy ELECTROCARDIOGRAM, COMPLETE (ECG) On: 20-Jul-2016 Intent (28045)By: Oren ASH ThuyLes Lott CNP Thuy MAMMOGRAM BREAST BILATERAL SCREENING On: 20-Jul-2016 Intent DIGITAL (45856)By: Peggy Lott CNP, CNP Peggy Saldana INJECTION, PROLIA (J0897)By: Iris On: 16-Oct-2015 Intent Silvana COLLINS Comments: Lot:[id number]:05/14Dose:60mg/mlRoute:sub qSite:l armGiven By:JKMVIS signed DEXA SCAN AXIAL SKELETON (92188)By: On: 08-Jun-2015 Intent Silvana Simmons MD MAMMOGRAM, SCREENING, BOTH BREAST On: 08-Jun-2015 Intent (70185)By: Silvana Simmons MD Echo CompleteBy: Silvana Simmons MD On: 10-Nov-2014 Intent Holter Monitor 24 hrsBy: Iris COLLINS, On: 10-Nov-2014 Intent Silvana Holder Carotid DopplerBy: Silvana Simmons MD On: 10-Nov-2014 Intent M FLU VAC, SPLIT, >3 YEARS, INTRAMUSC On: 26-Sep-2013 Intent (11164)By: Silvana Simmons MD Comments: Lot #:[id number] date:05.10Amount given:0.5mlRoute: IMSite given:L DltdGiven by: Paige ANAYA and ABN signed IMMUNIZ ADMNIN, 1 VAC, SNGL/COMBO On: 26-Sep-2013 Intent (06466)By: Silvana Simmons MD EKG (50072)By: PAIGE Rees On: 26-Sep-2013 Intent Eprescribed prescriptions (G8553)By: On: 12-Feb-2013 Intent Radha Corrales LPN L Ear Irrigation (73747)By: Lucio On: 18-Jan-2013 Intent Jayde JONES Comments: Ear Irrigation performed on: r earAmount/color removed cerumen:brownish moderate amountOUtcome:pt tolerated Used wax curettes Wax CurettesBy: Jayde Valdes LPN On: 18-Jan-2013 Intent Phenergan Injection, up to 50 mg On: 15-Jan-2013 Intent (J2550)By: Peggy Lott CNP Comments: give 25mg IMLot #[id number]-left hipDose-25mggiven by: Claudia Browne LPN CNP, Mary E IMMUNIZ ADMNIN, 1 VAC, SNGL/COMBO On: 14-Aug-2012 Intent (17051)By: Silvana Simmons MD FLU VAC, SPLIT, >3 YEARS, INTRAMUSC On: 14-Aug-2012 Intent (69048)By: Silvana Simmons MD DXA, BONE DENSITY, AXIAL SKELETON On: 14-Aug-2012 Intent (59091)By: Silvana Simmons MD MAMMOGRAM, SCREENING, BOTH BREASTS On: 14-Aug-2012 Intent (38805)By: Silvana Simmons MD Breast Screening - BilateralBy: On: 09-Jan-2012 Intent Silvana Simmons MD EKG (14936)By: Jayde Valdes LPN On: 31-Oct-2011 Intent Comments: sinus rhythm , borderline T abnormal ant leads MAMMOGRAM, SCREENING, BOTH BREASTS On: 18-Nov-2010 Intent (42619)By: Silvana Simmons MD DXA, BONE DENSITY, AXIAL SKELETON On: 18-Nov-2010 Intent (33741)By: Silvana Simmons MD Wax CurettesBy: PAIGE Rees On: 26-Mar-2010 Intent Ear Irrigation (15891)By: Cabrera On: 26-Mar-2010 Intent PAIGE SPECIMEN HNDLNG/TRNSPRT, OFFC > LAB On: 24-Nov-2009 Intent (55205)By: PAIGE Rees EEGBy: Peggy Lott CNP, CNP, On: 12-Aug-2009 Intent Peggy Saldana Holter Moniter (58260)By: Ciesa On: 12-Aug-2009 Intent Peggy ASH CNP, Mary E CT - Brain/HeadBy: Peggy Lott CNP On: 12-Aug-2009 Intent Peggy Lott CNP Bio Z (03175)By: Peggy Lott CNP On: 12-Aug-2009 Intent Peggy Lott CNP Echo CompleteBy: Peggy Lott CNP On: 12-Aug-2009 Intent Peggy Lott CNP Cartoid DopplerBy: Peggy Lott CNP On: 12-Aug-2009 Intent Peggy Lott CNP EKG (22140)By: Reanna Becker On: 12-Aug-2009 Intent Radiology - Cervical SpineBy: On: 04-Dec-2008 Intent Silvana Simmons MD Breast Diagnostic - RightBy: Iris On: 17-Nov-2008 Intent Silvana COLLINS Comments: abnormal mammo, 04-04 due for follow up EKG (39864)By: Silvana Simmons MD On: 17-Nov-2008 Intent MAMMOGRAM, SCREENING, BOTH BREASTS On: 27-Aug-2007 Intent (99984)By: Silvana Simmons MD EKG (36988)By: Silvana Simmons MD On: 27-Aug-2007 Intent Clinical Breast Examination On: 12-Jan-2007 Intent (G0101)By: Silvana Simmons MD MAMMOGRAM, SCREENING, BOTH BREASTS On: 12-Jan-2007 Intent (37842)By: Silvana Simmons MD Comments: after 02-15-07 Toradol Injection, 30 mg (J1885)By: On: 25-Oct-2006 Intent MIGUEL BERMAN CNP Comments: Given IM by Regino. Given inj to prevent ER visit. Pt has history of going to ER with same pain. Radiology - Lumbar SpineBy: CULLEN On: 25-Oct-2006 Intent MIGUEL ASH Planned Medications INJECTION, KETOROLAC TROMETHAMINE, PER 15 MG Ordered: 12-Jan-2018 Pending Ciesa WALL TAPER, Thuy Ciesa WALL TAPER, Thuy INJECTION, KETOROLAC TROMETHAMINE, PER 15 MG Ordered: 19-Feb-2018 Pending Ciesa WALL TAPER, Thuy Ciesa WALL TAPER, Thuy INJECTION, KETOROLAC TROMETHAMINE, PER 15 MG Ordered: 27-Feb-2018 Pending Ciesa WALL TAPER, Thuy Ciesa WALL TAPER, Thuy INJECTION, PROLIA Ordered: 16-Oct-2015 Pending Silvana Simmons MD Phenergan 50 MG/ML Injection Solution Ordered: 15-Jan-2013 Pending Ciesa WALL TAPER, Thuy Ciesa WALL TAPER, Thuy Instructions Name Dates Details Nonsmoker : How [...] patient does not have durable power of employment attorney or living will. The patient has [...] compliant with instructions. Current medication use: no crhistoph End: 14-Aug-2012 11:17 e effects, compliant with [...] 12-Aug-2009 11:58 ssociated with dizziness (was watching [employer] go aroung on a [employer] go round), while the symptoms have not [...] ,emotional problems (depression) ,hypertension and other (hyperlipidemia, CHIGNIK LAGOON, low back pain, osteopenia ). Note for [...] [facility] End: 21-Aug-2006 15:45 Payers [employer] Lilliana Felix; stanley guarantor
--- OUTSIDE RECORDS SUMMARY | 2018-12-20 23:17 | XMS RPT_ITS | Continuity of Care Document ---
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 Comments: PATIENT NOT FASTINGPERFORMED BY: [facility] Vrelpg7859 [facility] [id number] (76840) ALT (SGPT) 14 [iU]/L (Normal) Range: 0-32 [...] Glucose, Serum 96 mg/dL (Normal) Range: 65-99 65-Jox-020013:37 Lipid Panel (62199) Comments: around April 2017; PATIENT WAS FASTINGPERFORMED BY: ROBERT [place] [employer] Rolon [facility] HospitalSiverge NetworksAdventHealth [id number] LDL/HDL Ratio 1.1 {ratio_units} (Normal) Range: 0.0-3.2 Comments: LDL/HDL Ratio Men Women 1/2 Avg.Risk 1.0 1.5 Av g.Risk 3.6 3.2 2X Avg.Risk 6.2 5.0 3X Avg.Risk 8.0 6.1 LDL Cholesterol Calc 77 mg/dL (Normal) Range: 0-99 VLDL Cholesterol Marysol 23 mg/dL (Normal) Range: 5-40 HDL Cholesterol 72 mg/dL (Normal) Triglycerides 116 mg/dL (Normal) Range: 0-149 Cholesterol, Total 172 mg/dL (Normal) Range: 100-199 60-Kqx-956415:37 POTASSIUM SERUM (56303) Comments: Order Date: 02/13/17Order Info: 2823[facility] - [facility]: 02/13/17Order Info: 2823-3 - [facility] [address] [place], [place], [id number] K 4.1 mmol/L (Normal) Range: 3.5-5.1 55-Gch-459794:20 Microscopic Examination Comments: PATIENT WAS FASTINGPERFORMED BY: [facility]KiteDes[employer] [place] [facility] [id number] Bacteria None seen (Normal) Mucus Threads Present (Normal) Epithelial Cells (non renal) 0-10 {/hpf} (Normal) Range: 0 - 10 RBC None seen {/hpf} (Normal) Range: 0 - 2 WBC 0-5 {/hpf} (Normal) Range: 0 - 5 71-Czu-018143:20 METABOLIC PANEL, COMPREHENSIVE Comments: PATIENT WAS FASTINGPERFORMED BY: XMS Penvision70 [facility] [id number] (95234) ALT (SGPT) 17 [iU]/L (Normal) Range: 0-32 [...] Glucose, Serum 81 mg/dL (Normal) Range: 65-99 39-Yrc-940954:20 URINALYSIS, W/ MICRO (05880) Comments: PATIENT WAS FASTINGPERFORMED BY: XMS Penvision70 [facility] [id number] Microscopic Examination See below: (Normal) Comments: Microscopic was indicated and was performed. Microscopic Examination MICRON (Normal) Comments: Microscopic follows if indicated. Nitrite, Urine Negative (Normal) Urobilinogen,Semi-Qn 0.2 mg/dL (Normal) Range: 0.2-1.0 Bilirubin Negative (Normal) Occult Blood Negative (Normal) Ketones Negative (Normal) Glucose Negative (Normal) Protein Negative (Normal) WBC Esterase Negative (Normal) Appearance Clear (Normal) Urine-Color Yellow (Normal) pH 6.5 (Normal) Range: 5.0-7.5 Specific [place] 1.013 (Normal) Range: 1.005-1.030 44-Qlr-252379:20 CBC with auto diff (43972) Comments: PATIENT WAS FASTINGPERFORMED BY: [facility] Aqwuxe1656 [address] [facility] [id number] Immature Grans (Abs) 0.0 {x10E3/uL} (Normal) Range: [...] 6.1 {x10E3/uL} (Normal) Range: 3.4-10.8 :20 TSH (14906) Comments: PATIENT WAS FASTINGPERFORMED BY: [employer]6370 [facility] [id number] TSH 0.689 {uIU/mL} (Normal) Range: 0.450-4.500 :20 MICROALBUMIN: CREATININE RATIO Comments: PATIENT WAS FASTINGPERFORMED BY: TextHogNewark [facility] Medical CenterPjdfdc8071 [facility] [id number] (44506) AND (56264) Microalb/Creat Ratio <6.5 {mg/g_creat} (Normal) Range: 0.0-30.0 Microalbumin, Urine <3.0 ug/mL (Normal) Creatinine, Urine 46.2 mg/dL (Normal) :40 HEPATIC FUNCTION PANEL Comments: PATIENT WAS FASTINGPERFORMED BY: TextHogNewark [facility] Medical CenterBxezja9980 [facility] [id number] (03337) ALT (SGPT) 38 [iU]/L (Abnormal) Range: 0-32 AST (SGOT) 35 [iU]/L (Normal) Range: 0-40 Alkaline Phosphatase, S 65 [iU]/L (Normal) Range: 39-117 Bilirubin, Direct 0.14 mg/dL (Normal) Range: 0.00-0.40 Bilirubin, Total 0.4 mg/dL (Normal) Range: 0.0-1.2 Albumin, Serum 4.3 g/dL (Normal) Range: 3.6-4.8 Protein, Total, Serum 6.8 g/dL (Normal) Range: 6.0-8.5 :40 LIPID PANEL (89602) Comments: PATIENT WAS FASTINGPERFORMED BY: [employer]6370 [facility] [id number] LDL/HDL Ratio 1.2 {ratio_units} (Normal) Range: 0.0-3.2 Comments: LDL/HDL Ratio Men Women 1/2 Avg.Risk 1.0 1.5 Av g.Risk 3.6 3.2 2X Avg.Risk 6.2 5.0 3X Avg.Risk 8.0 6.1 LDL Cholesterol Calc 84 mg/dL (Normal) Range: 0-99 VLDL Cholesterol Marysol 20 mg/dL (Normal) Range: 5-40 HDL Cholesterol 73 mg/dL (Normal) Triglycerides 98 mg/dL (Normal) Range: 0-149 Cholesterol, Total 177 mg/dL (Normal) Range: 100-199 5-Jpv-607885:45 Culture, Urine Comments: [facility] [address] [place], [place], [address] CUUR See Note (Normal) Comments: Urine CultureRESULTS [...] >=320 R(NF) indicates non- formulary drug at [facility]. Approval by Infectious Disease Specialist required before non-formulary drugs may be ordered and/or dispensed. 41-Jar-775237:06 Urinalysis, Office (99335) UA - LEUKOCYTE ESTERASE Trace (Normal) UA - NITRITE Positive (Normal) URINE UROBILINGN RONALD TIMED Normal mg/dL (Normal) UA - PROTEIN Negative mg/dL (Normal) UA - PH 6 (Abnormal) UA - BLOOD Hemolyzed Small (Normal) UA - SPECIFIC GRAVITY 1.025 (Normal) UA - KETONES Negative mg/dL (Normal) UA - BILIRUBIN Negative (Normal) UA - GLUCOSE Negative (Normal) 03-Bce-433740:13 CBC, Platelets & Auto Comments: PATIENT WAS FASTINGPERFORMED BY: LabCoAndrea [place] 6660870 [facility] [id number] Information: [id number] Diff (31837) Immature Grans (Abs) 0.0 {x10E3/uL} (Normal) Range: [...] 3.77-5.28 WBC 7.2 {x10E3/uL} (Normal) Range: 3.4-10.8 30-Htv-574497:13 TSH (77844) Comments: PATIENT WAS FASTINGPERFORMED BY: [facility]CoNew[facility] CenterPwshyj4630 [facility] [id number] TSH 0.907 {uIU/mL} (Normal) Range: 0.450-4.500 29-Ppe-843456:13 Lipid Panel (88507) Comments: PATIENT WAS FASTINGPERFORMED BY: [employer]6370 [facility] [id number] LDL/HDL Ratio 2.2 {ratio_units} (Normal) Range: 0.0-3.2 [...] Cholesterol, Total 253 mg/dL (Abnormal) Range: 100-199 25-Gls-424710:13 Metabolic Panel, Comprehensive Comments: PATIENT WAS FASTINGPERFORMED BY: TextHogNew[facility] Medical CenterTszqnt0846 [facility] [id number] (98869) ALT (SGPT) 25 [iU]/L (Normal) Range: 0-32 [...] Glucose, Serum 92 mg/dL (Normal) Range: 65-99 37-Bhx-218124:58 URINE EPIFANIO CULTURE-RONALD COL Comments: Forward to Dr Eduardo, Urology, [place], [place]; PATIENT NOT FASTINGPERFORMED BY: XMS Penvision70 [facility] [id number] Information: SRC:UR [id number] COUNT ([id number]) Result 1 MUG (Normal) Comments: Mixed urogenital flora5,000 Colonies/mL Urine Culture,Comprehensive Final report (Normal) 66-Lva-760894:55 Urinalysis, Office (15358) UA - GLUCOSE Negative (Normal) UA - BILIRUBIN Negative (Normal) UA - KETONES Negative mg/dL (Normal) UA - SPECIFIC GRAVITY 1.025 (Normal) UA - BLOOD Hemolyzed Trace (Normal) UA - PH 6 (Abnormal) UA - PROTEIN Negative mg/dL (Normal) URINE UROBILINGN RONALD TIMED Normal mg/dL (Normal) UA - NITRITE Negative (Normal) UA - LEUKOCYTE ESTERASE Negative (Normal) 3-Aye-697880:01 Vitamin D Hydroxy (66277) Comments: PATIENT NOT FASTINGPERFORMED BY: Conju[employer] LabCoRushmore.fmLsmzrm6513 Rolon [facility] [id number] Vitamin D, 25-Hydroxy 33.2 ng/mL (Normal) Range: 30.0-100.0 Comments: Vitamin D deficiency has been defined by the [place] of[place]icine and an Endocrine Society practice guideline as alevel of serum 25-OH vitamin D less than 20 ng/mL (1,2).The Endocrine Society went on to further define vitamin Dinsufficiency as a level between 21 and 29 ng/mL (2).1. IOM ([place] of Medicine). 2010. Dietary reference intakes for calcium and D. [place]: The National Academies Press.2. Mica MF, Dami LION, Sheri CHAVEZ, et al. Evaluation, treatment, and prevention of vitamin D deficiency: an Endocrine Society clinical practice guideline. JCEM. 2010; 96(7):5001-30. :01 SPEP (06589) Comments: PATIENT NOT FASTINGPERFORMED BY: [facility] Fbfwib5855 Rolon RoadDublin [place] [id number] Information: [id number] Please note: SPRCS (Normal) Comments: Protein electrophoresis scan will follow via computer, mail, orcourier delivery. A/G Ratio 1.3 (Normal) Range: 0.7-2.0 Globulin, Total 3.2 g/dL (Normal) Range: 2.0-4.5 M-Faisal Not Observed g/dL (Normal) Gamma Globulin 1.1 g/dL (Normal) Range: 0.5-1.6 Beta Globulin 1.1 g/dL (Normal) Range: 0.6-1.3 Kzmlf-5-Qgkbppxs 0.8 g/dL (Normal) Range: 0.4-1.2 Dxlkq-3-Ovtmbofd 0.3 g/dL (Normal) Range: 0.1-0.4 Albumin 4.2 g/dL (Normal) Range: 3.2-5.6 Protein, Total, Serum 7.4 g/dL (Normal) Range: 6.0-8.5 :01 TSH (46522) Comments: PATIENT NOT FASTINGPERFORMED BY: [facility] Yyjbhw2462 [address] RoadDublin [place] [id number] TSH 0.956 {uIU/mL} (Normal) Range: 0.450-4.500 :01 PARATHORMONE (15271) Comments: PATIENT NOT FASTINGPERFORMED BY: CB [facility] Fonbme8578 [address]on RoadDublin [place] [id number] PTH, Intact 53 pg/mL (Normal) Range: 15-65 :01 SED RATE ERYTHROCYTE (95251) Comments: PATIENT NOT FASTINGPERFORMED BY: [facility] Iibxmw8465 [address]on RoadDublin [place] [id number] Sedimentation Rate-Westergren 6 mm/h (Normal) Range: 0-40 8-Lys-427051:01 ALKALINE PHOSPHATASE (67516) Comments: PATIENT NOT FASTINGPERFORMED BY: [facility] [id number] Alkaline Phosphatase, S 75 [iU]/L (Normal) Range: 39-117 0-Dzc-426203:01 C-REACTIVE PROTEIN (62367) Comments: PATIENT NOT FASTINGPERFORMED BY: [facility]CoNewark [facility] Medical CenterUyrgkk1250 [facility] [id number] C-Reactive Protein, Quant 1.5 mg/L (Normal) Range: 0.0-4.9 97-Gkq-683875:10 Urinalysis, Complete Comments: Order Date: 07/26/15How was Urine Obtained? CLEAN CATCHTest performed at:[facility] [address] [place] [address] MUCUS, URINE 0 SEEN {/hpf} (Normal) [...] (Normal) CLARITY Clear (Normal) COLOR Yellow (Normal) 69-Iir-379836:26 Basic Metabolic Profile (BMP) Comments: Test performed at:[facility] [address] [place] [address] GAP 6 (Normal) Range: 5-15 CO2 [...] Comments: Please note revised CREATININE reference range /22/2015. BUN 24 mg/dL (Abnormal) Range: 7-18 GLU 91 mg/dL (Normal) Range: 70-110 82-Cyt-050023:26 CBC W/Diff, Automated Comments: Test performed at:[facility] [address] [place] [address] Absolute Lymph 1.55 {X10_3/ul} (Normal) Range: 0.83-4.51 [...] Panel (7) Comments: PATIENT WAS FASTINGPERFORMED BY: [facility]HogNew[facility] CenterOenitj9954 [facility] [id number] ALT (SGPT) 17 [iU]/L (Normal) Range: 0-32 AST (SGOT) 24 [iU]/L (Normal) Range: 0-40 Alkaline Phosphatase, S 63 [iU]/L (Normal) Range: 39-117 Bilirubin, Direct 0.16 mg/dL (Normal) Range: 0.00-0.40 Bilirubin, Total 0.7 mg/dL (Normal) Range: 0.0-1.2 Albumin, Serum 4.6 g/dL (Normal) Range: 3.6-4.8 Protein, Total, Serum 7.2 g/dL (Normal) Range: 6.0-8.5 76-Rau-547277:19 Lipid Panel With LDL/HDL Comments: PATIENT WAS FASTINGPERFORMED BY: [facility]HogNew[facility] CenterQrswhd1170 [facility] [id number] Information: [id number] Ratio LDL/HDL Ratio 2.6 {ratio_units} (Normal) Range: [...] Cholesterol, Total 257 mg/dL (Abnormal) Range: 100-199 96-Jkm-938296:14 Culture, Urine Comments: Test performed at:[facility] [address] [place], [place] [address] CUUR See Note (Normal) Comments: Urine CultureORGANISM [...] $ <=20 S(NF) indicates non-formulary drug at [facility]. Approval by Infectious Disease Specialist required before non- formulary drugs may be ordered and/or dispensed. 50-Kax-748822:14 Urinalysis, Routine (Dipstick) Comments: How was Urine Obtained? CLEAN CATCHTest performed at:[facility] [address]pe[address] [place], [place] [id number] LEUK ESTERASE 100 /ul (Abnormal) OCCULT BLOOD-UR 10 /ul (Abnormal) NITRITE UR Positive (Abnormal) UROBILI Normal mg/dL (Normal) PROT DIPSTX Negative mg/dL (Normal) pH UR 7.0 (Normal) Range: 5.0 - 8.0 SP.GR. DIPSTX 1.010 (Normal) Range: 1.002-1.030 KETONE UR Negative mg/dL (Normal) BILIRUBIN URINE Negative mg/dL (Normal) GLUCOSE, UR Normal mg/dL (Normal) CLARITY Sl. Cloudy (Normal) COLOR Yellow (Normal) 40-Qxg-588422:16 URINE EPIFANIO CULTURE (RONALD Comments: PATIENT NOT FASTINGPERFORMED BY: [facility] Mcnwlm3768 [facility] [id number] Information: SRC:UR [id number] COL COUNT) ([id number]) Result 1 CNSNSS (Abnormal) Comments: Coagulase negative [...] S Urine Final report Culture,Comprehens (Abnormal) tito 2-Vyx-029214:25 Culture, Urine Comments: Test performed at:[facility] [address] [place] [address] CUUR See Note (Normal) Comments: Order Date: [...] $ <=20 S(NF) indicates non-formulary drug at [facility]. Approval by Infectious Disease Specialist required before non-formulary drugs may be ordered and/or dispensed. 00-Rsp-40774:24 MICROALBUMIN: CREATININE RATIO Comments: PATIENT WAS FASTINGPERFORMED BY: [facility] Airbar2413 [facility] [id number] (00267) AND (15357) Microalb/Creat Ratio 1.3 {mg/g_creat} (Normal) Range: 0.0-30.0 Microalbumin, Urine 1.5 ug/mL (Normal) Range: 0.0-17.0 Creatinine, Urine 118.7 mg/dL (Normal) Range: 15.0-278.0 :24 METABOLIC PANEL, COMPREHENSIVE Comments: PATIENT WAS FASTINGPERFORMED BY: TextHog Okwjwx8169 [facility] [id number] (31178) ALT (SGPT) 22 [iU]/L (Normal) Range: 0-32 [...] mg/dL (Normal) Range: 65-99 :24 LIPID PANEL (20510) Comments: PATIENT WAS FASTINGPERFORMED BY: Kinopto6370 [facility] [id number] LDL/HDL Ratio 2.6 {ratio_units} (Normal) Range: 0.0-3.2 Comment: LDLCOM (Normal) Comments: Possible Familial Hypercholesterolemia. FH should be suspected whenfasting LDL cholesterol is above 189 mg/dL or non-HDL cholesterolis above 219 mg/dL. A family history of high cholesterol and heartdise ase in 1st degree relatives should be collected. J Clin Bugrxuc1769;5:133-140 LDL Cholesterol Calc 206 mg/dL (Abnormal) Range: 0-99 VLDL Cholesterol Marysol 16 mg/dL (Normal) Range: 5-40 HDL Cholesterol 79 mg/dL (Normal) Comments: According to ATP-III Guidelines, HDL-C >59 mg/dL is considered anegative risk factor for CHD. Triglycerides 82 mg/dL (Normal) Range: 0-149 Cholesterol, Total 301 mg/dL (Abnormal) Range: 100-199 04-Tlv-43302:24 CBC WITH MANUAL DIFF Comments: PATIENT WAS FASTINGPERFORMED BY: LabCoNewark [facility] CenterYtvlel2088 [facility] [id number] Information: [id number] (80921) Immature Grans (Abs) 0.0 {x10E3/uL} (Normal) Range: [...] 3.77-5.28 WBC 4.8 {x10E3/uL} (Normal) Range: 3.4-10.8 4-Eru-494633:31 BILAT SCRN DIGITAL & CAD Radiology Report [...] Amor M.D.January 31, 2013 at 1:16:07 PM [phone] Signed GP/GP If you are the referring physician and wou ld like to consult with theradiologist who provided this interpretation, please contact Yan Enriquez at [phone]. If this radiologist is unavailable, youwill be directed to another radiol ogist to assist. If you are a patient with a question regarding this report, pleasecontactyour referring physician directly. Professional Interpretation Provided By: EZbuildingEHS, Phone ,Fa x [phone] These documents contain legally protected and confidential [...] destructionofthese documents. Dictated on 01/31/13 1231 by Mt COLLINS,Yordyranscribed on 01/31/13 1325 by ITS IMPORTSign by Mt COLLINS,Tylor on 01/31/13 1326 Sign by: Tylor Amor MD 6-Sob-134891:31 DEXA BONE DENSITY STUDY (HP) Radiology Report [...] is considered osteopenic, as outlined above, according toWorHealth Organization ([facility]) criteria. Fracture risk is [...] Amor M.D.January 31, 2013 at 1:13:05 PM [phone] Signed GP/GP If you are the referring ph ysician and would like to consult with theradiologist who provided this interpretation, please contact Yan Enriquez at [phone]. If this radiologist is unavailable, youwill be directed to another radiologist to assist. If you are a patient with a question regarding this report, pleasecontactyour referring physician directly. Professional Interpretation Provided By: [employer]EHS, Phone , These documents contain legally protected [...] on 01/31/13 1317 by ITS IMPORTSign by Mt COLLINS,Tylor on 0 01/31/13 1318 Sign by: Mt COLLINS,Tylor 78-Aoa-90989:51 LIPID PANEL (71642) Comments: PATIENT WAS FASTINGPERFORMED BY: [facility] [id number] Information: [id number] LDL Cholesterol Calc 162 mg/dL (Abnormal) Range: 0-99 LDL/HDL Ratio 2.7 {ratio_units} (Normal) Range: 0.0-3.2 VLDL Cholesterol Marysol 24 mg/dL (Normal) Range: 5-40 HDL Cholesterol 61 mg/dL (Normal) Comments: According to ATP-III Guidelines, HDL-C >59 mg/dL is considered anegative risk factor for CHD. Triglycerides 122 mg/dL (Normal) Range: 0-149 Cholesterol, Total 247 mg/dL (Abnormal) Range: 100-199 97-Ozq-259147:18 Microscopic Examination Comments: PATIENT WAS FASTINGPERFORMED BY: [facility] [id number] Bacteria None seen (Normal) Epithelial Cells (non renal) 0-10 {/hpf} (Normal) Range: 0 - 10 RBC 0-3 {/hpf} (Normal) Range: 0 - 3 WBC 0-5 {/hpf} (Normal) Range: 0 - 5 22-Gay-417263:18 METABOLIC PANEL, COMPREHENSIVE Comments: PATIENT WAS FASTINGPERFORMED BY: [facility] [id number] (22776) ALT (SGPT) 16 [iU]/L (Normal) Range: 0-40 [...] Glucose, Serum 88 mg/dL (Normal) Range: 65-99 77-Zze-334922:18 URINALYSIS, W/ MICRO (47797) Comments: PATIENT WAS FASTINGPERFORMED BY: [facility] [id number] Microscopic Examination See below: (Normal) Microscopic Examination MICRON (Normal) Comments: Microscopic follows if indicated. Nitrite, Urine Negative (Normal) Urobilinogen,Semi-Qn 0.2 mg/dL (Normal) Range: 0.0-1.9 Bilirubin Negative (Normal) Occult Blood Negative (Normal) Ketones Negative (Normal) Glucose Negative (Normal) Protein Negative (Normal) WBC Esterase Negative (Normal) Appearance Clear (Normal) Urine-Color Yellow (Normal) pH 5.5 (Normal) Range: 5.0-7.5 Specific [place] 1.018 (Normal) Range: 1.005-1.030 :18 LIPID PANEL (02002) Comments: PATIENT WAS FASTINGPERFORMED BY: [facility] [id number] LDL/HDL Ratio 2.8 {ratio_units} (Normal) Range: 0.0-3.2 [...] 100-199 Comments: Please note reference interval change 11-Mkg-956402:18 CBC WITH MANUAL DIFF Comments: PATIENT WAS FASTINGPERFORMED BY: [facility]CoNew[facility] CenterFiknnr0530 [facility] [id number] Information: [id number] (10656) Immature Grans (Abs) 0.0 {x10E3/uL} (Normal) Range: [...] 3.77-5.28 WBC 4.4 {x10E3/uL} (Normal) Range: 4.0-10.5 09-Jbl-89339:52 Lipid Panel (96210) Comments: PATIENT WAS FASTINGPERFORMED BY: [facility]CoNew[facility] CenterJgqmes8802 [facility] [id number] Information: [id number] LDL/HDL Ratio 2.2 {ratio_units} (Normal) Range: 0.0-3.2 LDL Cholesterol Calc 146 mg/dL (Abnormal) Range: 0-99 VLDL Cholesterol Marysol 23 mg/dL (Normal) Range: 5-40 HDL Cholesterol 67 mg/dL (Normal) Comments: According to ATP-III Guidelines, HDL-C >59 mg/dL is considered anegative risk factor for CHD. Triglycerides 115 mg/dL (Normal) Range: 0-149 Cholesterol, Total 236 mg/dL (Abnormal) Range: 100-199 60-Ydj-020448:32 BILAT SCRN DIGITAL & CAD Radiology Report [...] radiologist regarding this report, please call our 42P0snxxjax line @ Dictated on 01/18/12 1254 by Mt COLLINS,GabrieleTranscribed on 01/18/12 1457 by ITS IMPORTSign by Celia garcia MD,Tylor on 01/18/12 1458 Sign by: Tylor Amor MD 37-Tbu-423124:12 POTASSIUM SERUM (41021) Comments: PATIENT NOT FASTINGPERFORMED BY: LabCoNew[facility] CenterUccnzg4712 [facility] [id number] Information: [id number] Potassium, Serum 5.2 mmol/L (Normal) Range: 3.5-5.2 [...] 7-18 GLU 94 mg/dL (Normal) Range: 70-110 25-Pvm-86450:15 COMPLETE UA MUCUS, URINE 0 SEEN {/hpf} [...] 200-240 mg/dL Borderline >240 mg/dL High Risk :37 CBCD,SMEAR DIFF RED CELL MORPH SeeNote {NORMAL} [...] 7-18 GLU 93 mg/dL (Normal) Range: 70-110 33-Sdd-982574:37 COMPLETE UA Comments: appt 05/10/11 BACTERIA RARE [...] Serum 9.8 mg/dL (Normal) Comments: PERFORMED BY: [employer] Jzuosd0495 [facility] [id number] Range: 8.6-10.2 : Phosphorus, Serum 3.6 mg/dL (Normal) Comments: PERFORMED BY: [employer] Zvfjse5862 [facility] [id number] Range: 2.5-4.5 :59 Protein Electro, Random Urine Comments: PERFORMED BY: [employer] [address] [place] [address] [id number] Please note: SPRCS (Normal) Comments: Protein electrophoresis scan will follow via computer, mail, orcourier delivery. Gamma Globulin, U 19.1 % (Normal) M-Faisal, % Not Observed % (Normal) Beta Globulin, U 32.4 % (Normal) Nkjbj-4-Kfczlxzl, U 20.5 % (Normal) Zuaei-3-Zhqhodmm, U 4.1 % (Normal) Albumin, U 23.9 % (Normal) Protein,Total,Urine 6.5 mg/dL (Normal) Range: 0.0-15.0 15-Yrv-692722:59 Protein Electro.,S Comments: PERFORMED BY: [employer] Auytdw6650 [address] [facility]bl[facility] [place] [id number] Please note: SPRCS (Normal) Comments: Protein electrophoresis scan will follow via computer, mail, orcourier delivery. A/G Ratio 1.2 (Normal) Range: 0.7-2.0 Globulin, Total 3.2 g/dL (Normal) Range: 2.0-4.5 M-Faisal Not Observed g/dL (Normal) Pggug-7-Awntfvsv 0.2 g/dL (Normal) Range: 0.1-0.4 Ceccf-7-Uudbapqi 0.8 g/dL (Normal) Range: 0.4-1.2 Beta Globulin 1.1 g/dL (Normal) Range: 0.6-1.3 Gamma Globulin 1.1 g/dL (Normal) Range: 0.5-1.6 Albumin 3.9 g/dL (Normal) Range: 3.2-5.6 Protein, Total, Serum 7.1 g/dL (Normal) Range: 6.0-8.5 PTH, Intact 27 pg/mL (Normal) Comments: PERFORMED BY: [employer] [employer] [id number] 5:59 Range: 15-65 Sedimentation 5 mm/h (Normal) Comments: PERFORMED BY: [employer] Ggqfsn7521 [facility] [place] [id number] 5:59 Rate-Westergren Range: 0-30 TSH 1.050 {uIU/mL} Comments: PERFORMED BY: [employer] Omdvkw5020 [address] [facility] HospitalSiverge Networksblin [place] [id number] 5:59 (Normal) Range: 0.450-4.500 Vitamin D, 25-Hydroxy 39.3 ng/mL Comments: PERFORMED BY: Kinopto6370 [address] [facility] HospitalDublin [place] [id number] 5:59 (Normal) Range: 32.0-100.0 Comments: Recent studies consider the lower limit of 32.0 ng/mL to be athreshold for optimal health.Carrington WICK. J Nutr. 2004;135(2):317-22. 0-Nci-526406:55 BILAT SCRN DIGITAL & CAD Radiology Report [...] be sent to the patient by the [facility] within 30 days. Approximately 10% of breast cancers are not detected by mammography. Anormal mammogram should not delay biopsy of a clinically suspiciousabnormality. Dictated on 12/30/10 1348 b Rniku Gambinoscribed on 01/05/11 1047 by ITS IMPORTSign by Tylor Amor on 01/05/11 1048 Sign by: Tylor Amor 2-Cvb-492113:54 DEXA BONE DENSITY STUDY (HP) Radiology Report See Note (Normal) Comments: CLINICAL:Female, 60 years old. The patient is postmenopausal. EXAMINATION:DUAL ENERGY X-RAY ABSORPTIOMETRY / DEXA. TECHNIQUE:Bone Mineral Density (BMD) measurements of lumbar spine and bila teralhipswer e obtained using a picoChip scanner.. COMPARISON:Comparison is made with prior study [...] on 12/30/10 1407 Sign by: Tylor Amor 7-Dmm-103473:03 METABOLIC PANEL, COMPREHENSIVE Comments: PATIENT WAS FASTINGPERFORMED BY: [facility] [id number] ([id number]) ALT (SGPT) 17 [iU]/L (Normal) Range: 0-40 [...] Glucose, Serum 97 mg/dL (Normal) Range: 65-99 4-Rrk-253880:03 LIPID PANEL (13472) Comments: PATIENT WAS FASTINGPERFORMED BY: [facility] CenterSehkgk6353 [facility] [id number] LDL Cholesterol Calc 176 mg/dL (Abnormal) Range: 0-99 LDL/HDL Ratio 2.7 {ratio_units} (Normal) Range: 0.0-3.2 VLDL Cholesterol Marysol 31 mg/dL (Normal) Range: 5-40 Cholesterol, Total 272 mg/dL (Abnormal) Range: 100-199 HDL Cholesterol 65 mg/dL (Normal) Comments: According to ATP-III Guidelines, HDL-C >59 mg/dL is considered anegative risk factor for CHD. Triglycerides 157 mg/dL (Abnormal) Range: 0-149 9-Nhq-157608:03 CBC WITH MANUAL DIFF Comments: PATIENT WAS FASTINGPERFORMED BY: [facility] CenterGonwdg5815 [facility] [id number] Information: [id number] ([id number]) Baso (Absolute) 0.1 {x10E3/uL} (Normal) Range: 0.0-0.2 [...] 3.80-5.10 WBC 6.2 {x10E3/uL} (Normal) Range: 4.0-10.5 :38 METABOLIC PANEL, COMPREHENSIVE Comments: PATIENT WAS FASTINGPERFORMED BY: [facility] CenterCnieow6595 [facility] [id number] ([id number]) ALT (SGPT) 23 [iU]/L (Normal) Range: 0-40 [...] mg/dL (Normal) Range: 65-99 29-Jun-20108:38 LIPID PANEL (89860) Comments: PATIENT WAS FASTINGPERFORMED BY: [facility] Okstnr9995 [facility] [id number] LDL Cholesterol Calc 143 mg/dL (Abnormal) Range: 0-99 LDL/HDL Ratio 2.0 {ratio_units} (Normal) Range: 0.0-3.2 Cholesterol, Total 228 mg/dL (Abnormal) Range: 100-199 HDL Cholesterol 73 mg/dL (Normal) Comments: According to ATP-III Guidelines, HDL-C >59 mg/dL is considered anegative risk factor for CHD. Triglycerides 58 mg/dL (Normal) Range: 0-149 VLDL Cholesterol Marysol 12 mg/dL (Normal) Range: 5-40 29-Jun-20108:38 CBC WITH MANUAL DIFF Comments: in three months (approximately); PATIENT WAS FASTINGPERFORMED BY: [facility] [id number] Information: ADD [id number] AND DRAW FEE [id number] (91638) Baso (Absolute) 0.0 {x10E3/uL} (Normal) Range: 0.0-0.2 [...] 3.80-5.10 WBC 4.4 {x10E3/uL} (Normal) Range: 4.0-10.5 54-Ans-442506:03 BMP BUN/CRE 24.4 {RATIO} (Abnormal) Range: 10-20 [...] (Normal) GLU 91 mg/dL (Normal) Range: 70-110 51-Vbj-90985:00 EPIFANIO CULTURE-OTHER (65797) Comments: PATIENT NOT FASTINGPERFORMED BY: [facility] CenterNuwvwl5835 [facility] [id number] Information: SRC: THROAT Result 1 RRF (Normal) Comments: Routine respiratory michelle Upper Respiratory Culture Final report (Normal) 17-Bih-657714:43 Rapid Strep Test, Office (26197) Rapid Strep Test, Office Negative (Normal) 59-Wyh-67804:35 CBCD,SMEAR DIFF CELLS COUNTED 100 (Normal) EOS [...] Report See Note (Normal) Comments: Exam Number: [id number] CLINICAL:Syncope and CT BRAIN WITH AND WITHOUT [...] There is no rmal enhancement of the [place], without a demonstrated aneurysm. Normal osseous calvarium, visualized facial bones, central skull base, and temporal bones without a demonstrated fracture or de structive process. Normal soft tissue structures of the calvarium. Normal visualized paranasal sinuses without mucosal thickening or air-fluid levels. IMPRESSION:Normal enhanced CT scan of the brain wi thout an acute or evolving intracranial process. Reported By: JERILYN PERRY : GLU GTT-5 HOUR 73 mg/dL (Normal) Comments: 5HR GTT GLU 5 HR GLU GTT-5 HOUR from 921:J23105I. 37 Range: 70-110 : GLU GTT-4 HOUR <TEST NOT PERFORMED> Comments: 5HR GTT GLU 4 HR GLU GTT-4 HOUR from 921:G24161E. 45 mg/dL (Normal) Range: 70-110 : GLU GTT-3 HOUR 78 mg/dL (Normal) Comments: 5HR GTT GLU 3 HR GLU GTT-3 HOUR from 921:U76341R. 40 Range: 70-110 : GLU GTT-2 HOUR 134 mg/dL (Abnormal) Comments: 5HR GTT GLU 2 HR GLU GTT-2 HOUR from 921:J06349B. 40 Range: 70-120 :4 GLU GTT-1 HOUR 155 mg/dL (Normal) Comments: 5HR GTT GLU 1 HR GLU GTT-1 HOUR from 921:A26379M. 0 Range: 120-170 :0 GLU GTT-30 min. 180 mg/dL (Abnormal) Comments: 5HR GTT GLU 1/2 HR GLU GTT-30 min. from 921:C81076J. 8 Range: 110-170 Comments: SPECIMEN GROSSLY HEMOLYZED :3 GLU GTT-FASTING 104 mg/dL (Normal) Comments: 5HR GTT FASTING GLU GTT-FASTING from 921:J65161R. 5 Range: 70-110 Comments: GLUCOSE TOLERANCE TEST Reference Interval Non- Adults Fasting 70 - 110 30 minutes 110 - 170 1 hour 120 - 170 2 hour 70 - 120 3 hour 70 - 110 4 hour 70 - 110 5 hour 70 - 110 :3 BEDSIDE GLU 97 mg/dL (Normal) Range: 70-110 3 Comments: Policy and Physicians Orders followed :47 Urinalysis, Office (07120) UA - BILIRUBIN Small (Normal) UA - BLOOD Hemolyzed Small (Normal) UA - GLUCOSE Negative (Normal) UA - KETONES Negative mg/dL (Normal) UA - LEUKOCYTE ESTERASE Small (Normal) Comments: aw UA - NITRITE Negative (Normal) UA - PH 5.0 (Normal) UA - PROTEIN Negative mg/dL (Normal) UA - SPECIFIC GRAVITY 1.025 (Normal) URINE UROBILINGN RONALD TIMED Normal mg/dL (Normal) :23 UNILAT RT DIAG DIGITAL & CAD Radiology Report See Note (Normal) Comments: Exam Number: [id number] MAMMOGRAM, UNILATERAL RIGHT DIAGNOSTIC DIGITAL AND CAD [...] February 15, 2006, and in the examination ofMarch 02, 2007. They are unchanged on the examination of [...] werealso e xamined with computer-aided detection software ([employer], [employer].). Reported By: AUBRIE CROW M.D. 16-Mjv-940103:19 ABDOMEN W/WO IV CONTRAST Radiology Report See Note (Normal) Comments: Exam Number: [id number] CLINICAL:Liver lesion CT ABDOMEN WITH AND WITHOUT [...] sponge kidneys. Reported By: GREGG GLEZ M.D. 74-Coq-75209:28 SERUM CRE & GFR Comments: CALL RESULTS TO [phone] CREAT,SERUM 0.8 mg/dL (Normal) Range: 0.6-1.0 EST GFR 78 mL/min (Normal) EST GFR - AA 95 mL/min (Normal) 39-Efp-86447:29 CERV SPINE,MIN 4 VIEWS Radiology Report See Note (Normal) Comments: Exam Number: [id number] CERVICAL SPINE SERIES, MULTIPLE VIEWS INCLUDING BILATERAL [...] spine series. Reported By: EMMA JETT M.D. 9-Gsn-908035:16 UNILAT RT DIAG DIGITAL & CAD Radiology Report See Note (Normal) Comments: Exam Number: [id number] MAMMOGRAM, UNILATERAL RIGHT DIAGNOSTIC DIGITAL AND CAD [...] This interpretation was rendered by a radiologist manjuie d under theMammography Quality Standards Act of 1992 (MQSA). The mammograms werealso examined with computer-aided detection software ([employer], [employer] Reported By: AUBRIE CROW M.D. 78-Jvn-600402:46 BILAT SCRN DIGITAL & CAD Radiology Report See Note (Normal) Comments: Exam Number: [id number] BILATERAL SCREENING MAMMOGRAPHY HISTORYRoutine screening. COMPARISONComparison is made to prior studies of March 16, 2007, March 02, 2007,and February 15, 2006. TECHNIQUER patrick GALAN a nd CC views were acquired. FINDINGSThe breast parenchyma is heterogeneously dense. A benign intramammarylymph node is shown in the left breast. There has been intervalvisualization of a linear groupi ng of punctate calcifications in theanterior right breast for which further evaluation with spotmagnification views would be required. Elsewhere no suspiciouscluster of calcification, area of park landscape architect ural distortion, orthree-dimensional spiculated masses. IMPRESSION1. Linear calcifications in the right breast requiring furtherevaluation with magnification views.2. BIRADS code 0 incomplete.3. Foll owup with additional views of the right breast. A letter regarding these results has been sent to the patient. This interpretation was rendered by a radiologist certified underthe Mammography Quality St and Act of 1991 (MQSA). The mammogramswere also examined with computer- aided detection software([employer].). Reported By: CASSIE QUINTEROS M.D. 97-Fzt-657445:17 LIPID CHOL 223 mg/dL (Abnormal) Comments: <200 [...] mg/dL VLDL 19 mg/dL (Normal) Range: 5-40 39-Ezt-635691:17 LIVER ALB 3.5 g/dL (Normal) Range: 3.4-5.0 [...] T PROT 7.0 g/dL (Normal) Range: 6.4-8.2 40-Wrm-470037:29 MAMM, UILAT DIAG DIGITAL & CAD Radiology Report See Note (Normal) Comments: Exam Number: [id number] MAMMOGRAM, LEFT UNILATERAL DIAGNOSTIC DIGITAL AND CAD [...] mammograms werealso examined with computer-aided detection software ([employer], [employer], [employer].). Reported By: AUBRIE CROW M.D. :40 MAMM, BILAT SCRN DIGITAL & CAD Radiology Report See Note (Normal) Comments: Exam Number: [id number] MAMMOGRAM, BILATERAL SCREENING DIGITAL & CAD Full [...] mammograms werealso examined with computer-aided detection software ([employer], [employer] Reported By: AUBRIE CROW M.D. :58 [...] $$$ >=256 R TRIMETHOPRIM/SULFAMETHOXAZ $$ <=10 S 85-Ecv-736400:58 ROUTINE UA BILIRUBIN URINE SeeNote (Normal) Comments: [...] 0.2 EU/dl (Normal) Range: 0.2 - 1.0 93-Lrn-699872:10 CBC HCT 41.3 % (Normal) Range: 37-47 HGB 14.2 g/dL (Normal) Range: 12.0-16.0 MCH 30.6 pg (Normal) Range: 27.0-32.0 MCHC 34.4 g/dL (Normal) Range: 32-36 MCV 88.9 fL (Normal) Range: 81-99 PLT 325 K/mm3 (Normal) Range: 150-450 RBC 4.65 {M/mm3} (Normal) Range: 4.2-5.4 RDW 13.3 % (Normal) Range: 11.6-14.6 WBC 6.4 K/mm3 (Normal) Range: 4.4-11.0 88-Htt-481962:10 COMP METABOLIC A/G 1.1 {RATIO} (Normal) Range: [...] T PROT 7.6 g/dL (Normal) Range: 6.4-8.2 79-Kkv-078894:10 PFLIP CHOL 231 mg/dL (Abnormal) Comments: <200 [...] mg/dL VLDL 20 mg/dL (Normal) Range: 5-40 12-Hsr-187928:10 ROUTINE UA BILIRUBIN URINE SeeNote (Normal) Comments: [...] Plan of Care Name Dates Details Instructions Nonsmoker : Follow up if no improvement or if symptoms worsen Indication: Nonsmoker Shoulder pain, right : Shoulder Injection Indication: Shoulder pain, right Shoulder pain, right : Reviewed Diagnostic Tests Indication: Shoulder pain, right Nonsmoker : Eprescribed prescriptions (G8553) Indication: Nonsmoker BMI 23.0-23.9, adult : Follow up in [...] Indication: Low back pain Planned Observations IRON (80725)Indication: Anemia On: :06 Request CBC, Platelets & Auto Diff (07815)Indication: Anemia On: 83-Gnz-913723:05 Request MICROALBUMIN: CREATININE RATIO (87231) AND (05181)Indication: Benign essential hypertension On: :03 Request Comments: Jul 2017 URINALYSIS (50962)Indication: Benign essential hypertension On: :03 Request Comments: Jul 2017 TSH (15650)Indication: Benign essential hypertension On: :03 Request Comments: Jul 2017 CBC, Platelets & Auto Diff (22022)Indication: Benign essential hypertension On: :03 Request Comments: Jul 2017 Metabolic Panel, Comprehensive (43616)Indication: Benign essential hypertension On: :02 Request Comments: Jul 2017 URINALYSIS, W/ MICRO (43225)Indication: Benign essential hypertension On: :22 Request METABOLIC PANEL, COMPREHENSIVE (26815)Indication: Benign essential hypertension On: 76-Vzl-510262:22 Request LIPID PANEL (92461)Indication: Benign essential hypertension On: :22 Request CBC with auto diff (76210)Indication: Benign essential hypertension On: :22 Request Blood Glucose , Office (35930)Indication: SYNCOPE, NOS On: 57-Qya-427346:23 Request LIPID PANEL (24044)Indication: Hyperlipidemia On: :37 Request HEPATIC FUNCTION PANEL (87012)Indication: Hyperlipidemia On: 30-Uwe-522642:37 Request CALCIFIDIOL (51270) VIT D 25Indication: Osteoporosis On: :50 Request CALCIUM SERUM (54535)Indication: Osteoporosis On: :48 Request TSH (77218)Indication: Osteoporosis On: :48 Request UPEP (02811)Indication: Osteoporosis On: :48 Request SPEP (60878)Indication: Osteoporosis On: :47 Request SED RATE ERYTHROCYTE (90189)Indication: Osteoporosis On: :47 Request PHOSPHORUS (08347)Indication: Osteoporosis On: :47 Request PARATHORMONE (75107)Indication: Osteoporosis On: :47 Request URINALYSIS, W/ MICRO (13718)Indication: Benign essential hypertension On: 86-Ahk-160070:00 Request CBC with manual diff (98244)Indication: Benign essential hypertension On: :40 Request Metabolic Panel, Comprehensive (37457)Indication: Hyperkalemia On: :40 Request Lipid Panel (33215)Indication: Hypercholesterolemia On: :40 Request METABOLIC PANEL, COMPREHENSIVE (01468)Indication: Hypercholesterolemia On: :16 Request LIPID PANEL (68843)Indication: Hypercholesterolemia On: :16 Request Comments: in three months (approximately) Metabolic Panel, Basic (98977)Indication: Benign essential hypertension On: :15 Request Comments: 2 weeks GLUCOSE TOLERANCE TEST (GTT) 5 hour (25640)Indication: SYNCOPE, NOS On: :49 Request Blood Glucose , Office (25842)Indication: SYNCOPE, NOS On: 60-Qmd-534992:47 Request Comments: 92 URINALYSIS W/O MICRO (86843)Indication: Benign essential hypertension On: :35 Request METABOLIC PANEL, COMPREHENSIVE (26505)Indication: Benign essential hypertension On: 57-Smd-320870:35 Request LIPID PANEL (06087)Indication: Benign essential hypertension On: :35 Request CBC WITH MANUAL DIFF (36916)Indication: Benign essential hypertension On: 53-Lnv-755348:34 Request MICROALBUMIN: CREATININE RATIO (83913) AND (50836)Indication: Benign essential hypertension On: :08 Request METABOLIC PANEL, COMPREHENSIVE (57049)Indication: Benign essential hypertension On: :08 Request LIPID PANEL (84240)Indication: Benign essential hypertension On: 96-Duf-918084:08 Request CBC WITH MANUAL DIFF (07092)Indication: Benign essential hypertension On: 42-Glw-761474:08 Request CBC (Auto) (95022)Indication: Hypercholesterolemia On: :47 Request Metabolic Panel, Comprehensive (03080)Indication: Hypercholesterolemia On: :47 Request Lipid Panel (20573)Indication: Hypercholesterolemia On: 9-Dgg-443236:46 Request Comments: in three months (approximately) HEPATIC FUNCTION PANEL (56381)Indication: Hypercholesterolemia On: :21 Request LIPID PANEL (81436)Indication: Hypercholesterolemia On: 64-Axp-380698:21 Request Comments: in six months Planned Procedures SCREENING DIGITAL TOMOSYNTHESIS OF On: 15-Oct-2018 Intent BREAST (36385)By: Radhaa MIHIR Thuy Ciesa FISHERIES TECHNICAL OFFICER, Thuy DRAIN/INJECT, JOINT/BURSA (52555)By: On: 15-Oct-2018 Intent Sydneeesa MIHIR, Thuy Ciesa FISHERIES TECHNICAL OFFICER, Thuy Radiology - Shoulder - RightBy: On: 10-Sep-2018 Intent Ciesa FISHERIES TECHNICAL OFFICER, Thuy Citoma FISHERIES TECHNICAL OFFICER, Thuy Toradol Injection, 30 mg (J1885)By: On: 27-Feb-2018 Intent Ciesa FISHERIES TECHNICAL OFFICER, Thuy Citoma FISHERIES TECHNICAL OFFICER, Thuy Toradol Injection, 30 mg (J1885)By: On: 19-Feb-2018 Intent Ciesa FISHERIES TECHNICAL OFFICER, Thuy Ciesa FISHERIES TECHNICAL OFFICER, Thuy Radiology - Cervical SpineBy: Ciesa On: 19-Feb-2018 Intent FISHERIES TECHNICAL OFFICER, Thuy Citoma FISHERIES TECHNICAL OFFICER, Thuy Wax Currettes (43088)By: Slarb REHABILITATION ATTENDANT, On: 26-Jan-2018 Intent Reyna Ear Irrigation (32796)By: Slarb On: 26-Jan-2018 Intent REHABILITATION ATTENDANT, Reyna PARATHYROID SCAN WITH MIBI AND I-123 On: 14-Jan-2018 Intent (58471)By: Sydneeesa MIHIR, Thuy Citoma FISHERIES TECHNICAL OFFICER, Thuy Toradol Injection, 30 mg (J1885)By: On: 12-Jan-2018 Intent Ciesa MIHIR, Thuy Ciesa FISHERIES TECHNICAL OFFICER, Thuy SCREENING DIGITAL TOMOSYNTHESIS OF On: 06-Sep-2017 Intent BREAST (33629)By: Cigeovany ASH, Peggy Lott CNP, Peggy Saldana DEXA SCAN AXIAL SKELETON (67156)By: On: 06-Sep-2017 Intent Oren ASH, Peggy Lott CNP, Peggy Saldana Holter Monitor 24 hrsBy: Oren ASH, On: 23-Jun-2017 Intent Peggy Lott CNP, Peggy Saldana ELECTROCARDIOGRAM, COMPLETE (ECG) On: 23-Jun-2017 Intent (84960)By: Oren ASH, Peggy Lott CNP, Peggy Saldana ELECTROCARDIOGRAM, COMPLETE (ECG) On: 10-Aug-2016 Intent (14167)By: Oren ASH, Peggy Lott CNP, Peggy Saldana ELECTROCARDIOGRAM, COMPLETE (ECG) On: 20-Jul-2016 Intent (53862)By: Peggy Lott CNP, CNP, Peggy Saldana MAMMOGRAM BREAST BILATERAL SCREENING On: 20-Jul-2016 Intent DIGITAL (83468)By: Peggy Lott CNP, CNP, Peggy Saldana INJECTION, PROLIA (J0897)By: Iris On: 16-Oct-2015 Intent Silvana COLLINS Comments: Lot:[id number]:05/14Dose:60mg/mlRoute:sub qSite:l armGiven By:JKMVIS signed DEXA SCAN AXIAL SKELETON (94589)By: On: 08-Jun-2015 Intent Silvana Simmons MD MAMMOGRAM, SCREENING, BOTH BREAST On: 08-Jun-2015 Intent (42407)By: Silvana Simmons MD Echo CompleteBy: Silvana Simmons MD On: 10-Nov-2014 Intent Holter Monitor 24 hrsBy: Iris COLLINS, On: 10-Nov-2014 Intent Silvana Holder Carotid DopplerBy: Silvana Simmons MD On: 10-Nov-2014 Intent M FLU VAC, SPLIT, >3 YEARS, INTRAMUSC On: 26-Sep-2013 Intent (88386)By: Silvana Simmons MD Comments: Lot #:[id number] date:05.10Amount given:0.5mlRoute: IMSite given:L DltdGiven by: Paige ANAYA and ABN signed IMMUNIZ ADMNIN, 1 VAC, SNGL/COMBO On: 26-Sep-2013 Intent (00556)By: Silvana Simmons MD EKG (28932)By: PAIGE Rees On: 26-Sep-2013 Intent Eprescribed prescriptions (G8553)By: On: 12-Feb-2013 Intent Radha Corrales LPN Ear Irrigation (51419)By: Lucio On: 18-Jan-2013 Intent Jayde JONES Comments: Ear Irrigation performed on: r earAmount/color removed cerumen:brownish moderate amountOUtcome:pt tolerated Used wax curettes Wax CurettesBy: Jayde Valdes LPN On: 18-Jan-2013 Intent Phenergan Injection, up to 50 mg On: 15-Jan-2013 Intent (J2550)By: Peggy Lott CNP Comments: give 25mg IMLot #[id number]-left hipDose-25mggiven by: Claudia Browne LPN CNP, Mary E IMMUNIZ ADMNIN, 1 VAC, SNGL/COMBO On: 14-Aug-2012 Intent (74989)By: Silvana Simmons MD FLU VAC, SPLIT, >3 YEARS, INTRAMUSC On: 14-Aug-2012 Intent (74972)By: Silvana Simmons MD DXA, BONE DENSITY, AXIAL SKELETON On: 14-Aug-2012 Intent (84952)By: Silvana Simmons MD MAMMOGRAM, SCREENING, BOTH BREASTS On: 14-Aug-2012 Intent (46565)By: Silvana Simmons MD Breast Screening - BilateralBy: On: 09-Jan-2012 Intent Silvana Simmons MD EKG (02715)By: Jayde Valdes LPN On: 31-Oct-2011 Intent Comments: sinus rhythm , borderline T abnormal ant leads MAMMOGRAM, SCREENING, BOTH BREASTS On: 18-Nov-2010 Intent (50783)By: Silvana Simmons MD DXA, BONE DENSITY, AXIAL SKELETON On: 18-Nov-2010 Intent (16648)By: Silvana Simmons MD Wax CurettesBy: PAIGE Rees On: 26-Mar-2010 Intent Ear Irrigation (15948)By: Cabrera, On: 26-Mar-2010 Intent PAIGE SPECIMEN HNDLNG/TRNSPRT, OFFC > LAB On: 24-Nov-2009 Intent (65610)By: PAIGE Rees EEGBy: Peggy Lott CNP, CNP, On: 12-Aug-2009 Intent Peggy Saldana Holter Moniter (25993)By: Oren On: 12-Aug-2009 Intent Peggy ASH CNP, Mary E CT - Brain/HeadBy: Peggy Lott CNP On: 12-Aug-2009 Intent Peggy Lott CNP Bio Z (19218)By: Peggy Lott CNP On: 12-Aug-2009 Intent Peggy Lott CNP Echo CompleteBy: Peggy Lott CNP On: 12-Aug-2009 Intent Peggy Lott CNP Cartoid DopplerBy: Peggy Lott CNP On: 12-Aug-2009 Intent Peggy Lott CNP EKG (73106)By: Reanna Becker On: 12-Aug-2009 Intent Radiology - Cervical SpineBy: On: 04-Dec-2008 Intent Silvana Simmons MD Breast Diagnostic - RightBy: Iris On: 17-Nov-2008 Intent Silvana COLLINS Comments: abnormal mammo, 04-04 due for follow up EKG (12534)By: Silvana Simmons MD On: 17-Nov-2008 Intent MAMMOGRAM, SCREENING, BOTH BREASTS On: 27-Aug-2007 Intent (01379)By: Silvana Simmons MD EKG (79158)By: Silvana Simmons MD On: 27-Aug-2007 Intent Clinical Breast Examination On: 12-Jan-2007 Intent (G0101)By: Silvana Simmons MD MAMMOGRAM, SCREENING, BOTH BREASTS On: 12-Jan-2007 Intent (67852)By: Silvana Simmons MD Comments: after 02-15-07 Toradol Injection, 30 mg (J1885)By: On: 25-Oct-2006 Intent MIGUEL BERMAN CNP Comments: Given IM by Regino. Given inj to prevent ER visit. Pt has history of going to ER with same pain. Radiology - Lumbar SpineBy: CULLEN On: 25-Oct-2006 Intent MIGUEL ASH Planned Medications INJECTION, KETOROLAC TROMETHAMINE, PER 15 MG Ordered: 12-Jan-2018 Pending Citoma FISHERIES TECHNICAL OFFICER, Peggy Saldana Citoma FISHERIES TECHNICAL OFFICER, Peggy Saldana INJECTION, KETOROLAC TROMETHAMINE, PER 15 MG Ordered: 19-Feb-2018 Pending Ciesa FISHERIES TECHNICAL OFFICER, Thuy Citoma FISHERIES TECHNICAL OFFICER, Thuy INJECTION, KETOROLAC TROMETHAMINE, PER 15 MG Ordered: 27-Feb-2018 Pending Citoma FISHERIES TECHNICAL OFFICER, Peggy Saldana Citoma FISHERIES TECHNICAL OFFICER, Peggy Saldana INJECTION, PROLIA Ordered: 16-Oct-2015 Pending Silvana Simmons MD Phenergan 50 MG/ML Injection Solution Ordered: 15-Jan-2013 Pending Radhaa FISHERIES TECHNICAL OFFICER, Peggy Lott FISHERIES TECHNICAL OFFICER, Peggy Saldana Instructions Name Dates Details Nonsmoker : How to access health information online Indication: Nonsmoker Nonsmoker : How to access health information online - Detail Indication: Nonsmoker Nonsmoker : Patient Instructions Indication: Nonsmoker Nonsmoker : How to access [...] Instructions Indication: Hyperlipidemia Encounters Office Visit On: 15-Oct-2018 15:59 Encounter Diagnosis: Encounter for screening mammogram for malignant neoplasm of breast End: 15-Oct-2018 16:01 [facility] Office Visit On: 15-Oct-2018 15:17 Encounter Reason: Shoulder Problem - Symptoms include shoulder pain and decreased range of motion. Symptoms are located in the right shoulder. Onset was 3 week(s) ago. 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 The patient has [...] ,emotional problems (depression) ,hypertension and other (hyperlipidemia, [place], low back pain, osteopenia ). Note for [...] [facility] End: 21-Aug-2006 15:45 Payers [place]/Medicare Lilliana Feilx; stanley guarantor
--- OUTSIDE RECORDS SUMMARY | 2018-12-20 23:19 | XMS RPT_ITS | Continuity of Care Document ---
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 4.54 {x10E6/uL} (Normal) Range: 3.77-5.28 WBC 5.7 {x10E3/uL} (Normal) Range: 3.4-10.8 30-Ydd-26268:51 PARATHORMONE (01411) Comments: PATIENT NOT FASTINGPERFORMED BY: [employer] [facility] Jpftia4360 GrowishUNC [facility] [id number] PTH, Intact 66 pg/mL (Abnormal) Range: 15-65 13-Ppp-56519:00 Urinalysis, Office (00983) UA - LEUKOCYTE ESTERASE Trace (Normal) UA - NITRITE Negative (Normal) URINE UROBILINGN RONALD TIMED Normal mg/dL (Normal) UA - PROTEIN Trace mg/dL (Normal) UA - PH 6 (Abnormal) UA - BLOOD non-hemolyzed trace (Normal) UA - SPECIFIC GRAVITY 1.030 (Abnormal) UA - KETONES Negative mg/dL (Normal) UA - BILIRUBIN Small (Normal) UA - GLUCOSE Negative (Normal) 24-Ryd-69395:45 Urinalysis, Complete Comments: How was Urine Obtained? CLEAN [facility] Ahmdbxmhzf0833 [facility] [address]. [place], [place], [id number] MUCUS, URINE 0 SEEN {/hpf} (Normal) BACTERIA [...] Straw (Normal) :58 CBC W/Diff, Automated Comments: [facility] Yzoswkhebc3444 [facility]. [place], [place], [id number] Absolute Lymph 1.16 {X10_3/ul} (Normal) Range: 0.83-4.51 [...] 4.2-5.4 WBC 3.2 K/mm3 (Abnormal) Range: 4.4-11.0 15-Ghb-83336:58 Comprehensive Metabolic Profil Comments: [facility] [address] [place], [address] GAP 8 (Normal) Range: 5-15 CO2 28.0 mmol/L (Normal) Range: 21.0-32.0 CL 104 mmol/L (Normal) Range: 98-107 K 4.0 mmol/L (Normal) Range: 3.5-5.1 NA 140 mmol/L (Normal) Range: 136-145 T BILI 0.90 mg/dL (Normal) Range: 0.20-1.00 ALT 25 U/L (Normal) Range: 13-56 Comments: Please note revised ALT reference range xxdmygmim38/28/2018. ALK P 66 U/L (Normal) Range: 45-117 [...] 7-18 GLU 96 mg/dL (Normal) Range: 70-110 31-Gar-53578:58 Lipase Comments: [facility] [address] [place], [address] LIPASE 211 U/L (Normal) Range: 73-393 2-Oux-634298:30 MICROALBUMIN: CREATININE RATIO Comments: PATIENT NOT FASTINGPERFORMED BY: [facility] [id number] (06735) AND (41170) Microalb/Creat Ratio 3.2 {mg/g_creat} (Normal) Range: 0.0-30.0 Microalbumin, Urine 4.7 ug/mL (Normal) Creatinine, Urine 145.6 mg/dL (Normal) 0-Mfo-709481:30 URINALYSIS (66584) Comments: PATIENT NOT FASTINGPERFORMED BY: [facility]acareUNC [facility] [id number] Microscopic Examination MICNIP (Normal) Comments: Microscopic not indicated and not performed. Nitrite, Urine Negative (Normal) Urobilinogen,Semi-Qn 0.2 mg/dL (Normal) Range: 0.2-1.0 Bilirubin Negative (Normal) Occult Blood Negative (Normal) Ketones Trace (Abnormal) Glucose Negative (Normal) Protein Negative (Normal) WBC Esterase Negative (Normal) Appearance Clear (Normal) Urine-Color Yellow (Normal) pH 5.5 (Normal) Range: 5.0-7.5 Specific Rochelle 1.022 (Normal) Range: 1.005-1.030 4-Wqo-899691:30 TSH (THYROID STIMULATING Comments: PATIENT NOT FASTINGPERFORMED BY: [facility]acareUNC [facility] [id number] HORMONE) (43455) TSH 0.801 {uIU/mL} (Normal) Range: 0.450-4.500 4-Rik-340923:30 CBC, PLATELETS & AUT DIFF Comments: PATIENT NOT FASTINGPERFORMED BY: [facility]6370 [facility] [id number] Information: [id number] (87276) Immature Grans (Abs) 0.0 {x10E3/uL} (Normal) Range: [...] 3.77-5.28 WBC 5.6 {x10E3/uL} (Normal) Range: 3.4-10.8 2-Cwc-238653:30 METABOLIC PANEL, COMPREHENSIVE Comments: PATIENT NOT FASTINGPERFORMED BY: [facility]6370 [facility] [id number] (76551) ALT (SGPT) 14 [iU]/L (Normal) Range: 0-32 [...] Glucose, Serum 96 mg/dL (Normal) Range: 65-99 60-Xpt-931651:37 Lipid Panel (93770) Comments: around April 2017; PATIENT WAS FASTINGPERFORMED BY: LabCoSaint Barnabas Behavioral Health CenterTbwgzu9974 [facility] [id number] LDL/HDL Ratio 1.1 {ratio_units} (Normal) Range: 0.0-3.2 Comments: LDL/HDL Ratio Men Women 1/2 Avg.Risk 1.0 1.5 Av g.Risk 3.6 3.2 2X Avg.Risk 6.2 5.0 3X Avg.Risk 8.0 6.1 LDL Cholesterol Calc 77 mg/dL (Normal) Range: 0-99 VLDL Cholesterol Marysol 23 mg/dL (Normal) Range: 5-40 HDL Cholesterol 72 mg/dL (Normal) Triglycerides 116 mg/dL (Normal) Range: 0-149 Cholesterol, Total 172 mg/dL (Normal) Range: 100-199 86-Qxu-096851:37 POTASSIUM SERUM (26827) Comments: Order Date: 02/13/17Order Info: 2823-3 - Brittnee Date: 02/13/17Order Info: 2823-3 - [facility] [address]usf[address] [place], [place], [address] K 4.1 mmol/L (Normal) Range: 3.5-5.1 31-Jqh-817553:20 Microscopic Examination Comments: PATIENT WAS FASTINGPERFORMED BY: [employer]6370 [facility] [id number] Bacteria None seen (Normal) Mucus Threads Present (Normal) Epithelial Cells (non renal) 0-10 {/hpf} (Normal) Range: 0 - 10 RBC None seen {/hpf} (Normal) Range: 0 - 2 WBC 0-5 {/hpf} (Normal) Range: 0 - 5 20-Vlw-830270:20 METABOLIC PANEL, COMPREHENSIVE Comments: PATIENT WAS FASTINGPERFORMED BY: [employer] Loot6370 [facility] [id number] (30741) ALT (SGPT) 17 [iU]/L (Normal) Range: 0-32 [...] Glucose, Serum 81 mg/dL (Normal) Range: 65-99 08-Bqf-543008:20 URINALYSIS, W/ MICRO (04792) Comments: PATIENT WAS FASTINGPERFORMED BY: [facility]acareUNC [facility] [id number] Microscopic Examination See below: (Normal) Comments: Microscopic was indicated and was performed. Microscopic Examination MICRON (Normal) Comments: Microscopic follows if indicated. Nitrite, Urine Negative (Normal) Urobilinogen,Semi-Qn 0.2 mg/dL (Normal) Range: 0.2-1.0 Bilirubin Negative (Normal) Occult Blood Negative (Normal) Ketones Negative (Normal) Glucose Negative (Normal) Protein Negative (Normal) WBC Esterase Negative (Normal) Appearance Clear (Normal) Urine-Color Yellow (Normal) pH 6.5 (Normal) Range: 5.0-7.5 Specific Rochelle 1.013 (Normal) Range: 1.005-1.030 23-Vya-305242:20 CBC with auto diff (83447) Comments: PATIENT WAS FASTINGPERFORMED BY: Hello[employer]70 GrowishUNC [facility] [id number] Immature Grans (Abs) 0.0 {x10E3/uL} (Normal) Range: [...] 3.77-5.28 WBC 6.1 {x10E3/uL} (Normal) Range: 3.4-10.8 42-Gsj-906380:20 TSH (51750) Comments: PATIENT WAS FASTINGPERFORMED BY: [employer] [facility] [id number] TSH 0.689 {uIU/mL} (Normal) Range: 0.450-4.500 90-Fdj-095401:20 MICROALBUMIN: CREATININE RATIO Comments: PATIENT WAS FASTINGPERFORMED BY: [employer] [facility] [id number] (29863) AND (77037) Microalb/Creat Ratio <6.5 {mg/g_creat} (Normal) Range: 0.0-30.0 Microalbumin, Urine <3.0 ug/mL (Normal) Creatinine, Urine 46.2 mg/dL (Normal) 8-Sbn-217693:40 HEPATIC FUNCTION PANEL Comments: PATIENT WAS FASTINGPERFORMED BY: [employer] [facility] [id number] (19225) ALT (SGPT) 38 [iU]/L (Abnormal) Range: 0-32 AST (SGOT) 35 [iU]/L (Normal) Range: 0-40 Alkaline Phosphatase, S 65 [iU]/L (Normal) Range: 39-117 Bilirubin, Direct 0.14 mg/dL (Normal) Range: 0.00-0.40 Bilirubin, Total 0.4 mg/dL (Normal) Range: 0.0-1.2 Albumin, Serum 4.3 g/dL (Normal) Range: 3.6-4.8 Protein, Total, Serum 6.8 g/dL (Normal) Range: 6.0-8.5 6-Fta-083327:40 LIPID PANEL (89094) Comments: PATIENT WAS FASTINGPERFORMED BY: [facility] Htppeb5905 [facility] [id number] LDL/HDL Ratio 1.2 {ratio_units} (Normal) Range: 0.0-3.2 Comments: LDL/HDL Ratio Men Women 1/2 Avg.Risk 1.0 1.5 Av g.Risk 3.6 3.2 2X Avg.Risk 6.2 5.0 3X Avg.Risk 8.0 6.1 LDL Cholesterol Calc 84 mg/dL (Normal) Range: 0-99 VLDL Cholesterol Marysol 20 mg/dL (Normal) Range: 5-40 HDL Cholesterol 73 mg/dL (Normal) Triglycerides 98 mg/dL (Normal) Range: 0-149 Cholesterol, Total 177 mg/dL (Normal) Range: 100-199 3-Cph-500491:45 Culture, Urine Comments: [facility] [address] [place], [address] CUUR See Note (Normal) Comments: Urine CultureRESULTS CALLED TO PAXTON 08/31/16 5785 Tamera Ram. REPORT READ BACK BY SAME. [...] >=320 R(NF) indicates non- formulary drug at [facility]. Approval by Infectious Disease Specialist required before non-formulary drugs may be ordered and/or dispensed. 41-Gzu-665045:06 Urinalysis, Office (62240) UA - LEUKOCYTE ESTERASE Trace (Normal) UA - NITRITE Positive (Normal) URINE UROBILINGN RONALD TIMED Normal mg/dL (Normal) UA - PROTEIN Negative mg/dL (Normal) UA - PH 6 (Abnormal) UA - BLOOD Hemolyzed Small (Normal) UA - SPECIFIC GRAVITY 1.025 (Normal) UA - KETONES Negative mg/dL (Normal) UA - BILIRUBIN Negative (Normal) UA - GLUCOSE Negative (Normal) 40-Hsu-101979:13 CBC, Platelets & Auto Comments: PATIENT WAS FASTINGPERFORMED BY: LabCoSaint Barnabas Behavioral Health CenterYitnaz0671 [facility] [id number] Information: [id number] Diff (68857) Immature Grans (Abs) 0.0 {x10E3/uL} (Normal) Range: [...] 3.77-5.28 WBC 7.2 {x10E3/uL} (Normal) Range: 3.4-10.8 07-Duz-567269:13 TSH (26773) Comments: PATIENT WAS FASTINGPERFORMED BY: LogicNetsSaint Barnabas Behavioral Health CenterJxurjh8073 [facility] [id number] TSH 0.907 {uIU/mL} (Normal) Range: 0.450-4.500 :13 Lipid Panel (65863) Comments: PATIENT WAS FASTINGPERFORMED BY: LogicNetsSaint Barnabas Behavioral Health CenterDhysme5060 [facility] [id number] LDL/HDL Ratio 2.2 {ratio_units} (Normal) Range: 0.0-3.2 [...] Cholesterol, Total 253 mg/dL (Abnormal) Range: 100-199 :13 Metabolic Panel, Comprehensive Comments: PATIENT WAS FASTINGPERFORMED BY: PellePharmSelect [facility]ty Hospital[facility]agin[facility]6370 [facility] [id number] (59293) ALT (SGPT) 25 [iU]/L (Normal) Range: 0-32 [...] Glucose, Serum 92 mg/dL (Normal) Range: 65-99 54-Ipr-879058:58 URINE EPIFANIO CULTURE-RONALD COL Comments: Forward to Dr Eduardo, Urology, [place], [place]; PATIENT NOT FASTINGPERFORMED BY: LabCoSaint Barnabas Behavioral Health CenterMaexjm9530 [facility] [id number] Information: SRC:URC [id number] COUNT (07468) Result 1 MUG (Normal) Comments: Mixed urogenital flora5,000 Colonies/mL Urine Culture,Comprehensive Final report (Normal) 25-Pik-737274:55 Urinalysis, Office (90909) UA - GLUCOSE Negative (Normal) UA - BILIRUBIN Negative (Normal) UA - KETONES Negative mg/dL (Normal) UA - SPECIFIC GRAVITY 1.025 (Normal) UA - BLOOD Hemolyzed Trace (Normal) UA - PH 6 (Abnormal) UA - PROTEIN Negative mg/dL (Normal) URINE UROBILINGN RONALD TIMED Normal mg/dL (Normal) UA - NITRITE Negative (Normal) UA - LEUKOCYTE ESTERASE Negative (Normal) :01 Vitamin D Hydroxy (94832) Comments: PATIENT NOT FASTINGPERFORMED BY: [facility]6370 [facility] [id number] Vitamin D, 25-Hydroxy 33.2 ng/mL (Normal) Range: 30.0-100.0 Comments: Vitamin D deficiency has been defined by the [place] ofMedicine and an Endocrine Society practice guideline as alevel of serum 25-OH vitamin D less than 20 ng/mL (1,2).The Endocrine Society went on to further define vitamin Dinsufficiency as a level between 21 and 29 ng/mL (2).1. IOM ([place] of Medicine). 2010. Dietary reference intakes for calcium and D. [place]: The National Academies Press.2. Mica MF, Dami LION, Sheri CHAVEZ, et al. Evaluation, treatment, and prevention of vitamin D deficiency: an Endocrine Society clinical practice guideline. JCEM. 2010; 96(7):1911-30. :01 SPEP (74591) Comments: PATIENT NOT FASTINGPERFORMED BY: [facility]St. [facility] Aiwbug3791 [facility] [id number] Information: [id number] Please note: SPRCS (Normal) Comments: Protein electrophoresis scan will follow via computer, mail, orcourier delivery. A/G Ratio 1.3 (Normal) Range: 0.7-2.0 Globulin, Total 3.2 g/dL (Normal) Range: 2.0-4.5 M-Faisal Not Observed g/dL (Normal) Gamma Globulin 1.1 g/dL (Normal) Range: 0.5-1.6 Beta Globulin 1.1 g/dL (Normal) Range: 0.6-1.3 Wnqli-0-Mitklvve 0.8 g/dL (Normal) Range: 0.4-1.2 Nskyf-1-Cdhnizhi 0.3 g/dL (Normal) Range: 0.1-0.4 Albumin 4.2 g/dL (Normal) Range: 3.2-5.6 Protein, Total, Serum 7.4 g/dL (Normal) Range: 6.0-8.5 :01 TSH (66909) Comments: PATIENT NOT FASTINGPERFORMED BY: ROBERT LabCo Ktcvcb0977 [facility] [id number] TSH 0.956 {uIU/mL} (Normal) Range: 0.450-4.500 1-Evc-066878:01 PARATHORMONE (50029) Comments: PATIENT NOT FASTINGPERFORMED BY: CB [facility] Nbzavj4054 [facility] [id number] PTH, Intact 53 pg/mL (Normal) Range: 15-65 :01 SED RATE ERYTHROCYTE (80028) Comments: PATIENT NOT FASTINGPERFORMED BY: ROBERT [facility] Bpvyii5930 [facility] [id number] Sedimentation Rate-Westergren 6 mm/h (Normal) Range: 0-40 :01 ALKALINE PHOSPHATASE (58209) Comments: PATIENT NOT FASTINGPERFORMED BY: [facility] Cirtgk9562 [facility] [id number] Alkaline Phosphatase, S 75 [iU]/L (Normal) Range: 39-117 :01 C-REACTIVE PROTEIN (42322) Comments: PATIENT NOT FASTINGPERFORMED BY: [facility] Yxwxxf8927 [facility] [id number] C-Reactive Protein, Quant 1.5 mg/L (Normal) Range: 0.0-4.9 07-Nci-120411:10 Urinalysis, Complete Comments: Order Date: 07/26/15How was Urine Obtained? CLEAN CATCHTest performed at:[facility] [address] [place], [place] [address] MUCUS, URINE 0 SEEN {/hpf} (Normal) BACTERIA [...] (Normal) CLARITY Clear (Normal) COLOR Yellow (Normal) 02-Nuo-875637:26 Basic Metabolic Profile (BMP) Comments: Test performed at:[facility] Sxnwburgsa04[address] [place], [place] [address] GAP 6 (Normal) Range: 5-15 CO2 26.0 [...] Comments: Please note revised CREATININE reference range bgqiqmpja77/22/2015. BUN 24 mg/dL (Abnormal) Range: 7-18 GLU 91 mg/dL (Normal) Range: 70-110 48-Lzg-588870:26 CBC W/Diff, Automated Comments: Test performed at:[facility] Ytfcmtrzzs8772 [place] [address] Absolute Lymph 1.55 {X10_3/ul} (Normal) Range: 0.83-4.51 [...] Panel (7) Comments: PATIENT WAS FASTINGPERFORMED BY: [employer]70 [facility]on [facility] [id number] ALT (SGPT) 17 [iU]/L (Normal) Range: 0-32 AST (SGOT) 24 [iU]/L (Normal) Range: 0-40 Alkaline Phosphatase, S 63 [iU]/L (Normal) Range: 39-117 Bilirubin, Direct 0.16 mg/dL (Normal) Range: 0.00-0.40 Bilirubin, Total 0.7 mg/dL (Normal) Range: 0.0-1.2 Albumin, Serum 4.6 g/dL (Normal) Range: 3.6-4.8 Protein, Total, Serum 7.2 g/dL (Normal) Range: 6.0-8.5 :19 Lipid Panel With LDL/HDL Comments: PATIENT WAS FASTINGPERFORMED BY: Innotech SolarSaint Barnabas Behavioral Health CenterRwzwwv7472 [facility] [id number] Information: [id number] Ratio LDL/HDL Ratio 2.6 {ratio_units} (Normal) Range: [...] Cholesterol, Total 257 mg/dL (Abnormal) Range: 100-199 22-Ffe-097090:14 Culture, Urine Comments: Test performed at:[facility] Lxhvogikfj8749 [facility] [place] [address] CUUR See Note (Normal) Comments: [...] $ <=20 S(NF) indicates non-formulary drug at [facility]. Approval by Infectious Disease Specialist required before non- formulary drugs may be ordered and/or dispensed. 33-Ccy-428827:14 Urinalysis, Routine (Dipstick) Comments: How was Urine Obtained? CLEAN CATCHTest performed at:[facility] [address] [place], [place] [address] LEUK ESTERASE 100 /ul (Abnormal) OCCULT BLOOD-UR 10 /ul (Abnormal) NITRITE UR Positive (Abnormal) UROBILI Normal mg/dL (Normal) PROT DIPSTX Negative mg/dL (Normal) pH UR 7.0 (Normal) Range: 5.0 - 8.0 SP.GR. DIPSTX 1.010 (Normal) Range: 1.002-1.030 KETONE UR Negative mg/dL (Normal) BILIRUBIN URINE Negative mg/dL (Normal) GLUCOSE, UR Normal mg/dL (Normal) CLARITY Sl. Cloudy (Normal) COLOR Yellow (Normal) 53-Vhl-565853:16 URINE EPIFANIO CULTURE (RONALD Comments: PATIENT NOT FASTINGPERFORMED BY: [facility] Hosekz6747 [facility] [id number] Information: SRC:UR [id number] COL COUNT) (26660) Result 1 CNSNSS (Abnormal) Comments: Coagulase negative [...] S Urine Final report Culture,Comprehens (Abnormal) tito 1-Uay-275425:25 Culture, Urine Comments: Test performed at:[facility] [address] [place] [address] CUUR See Note (Normal) Comments: Order Date: [...] $ <=20 S(NF) indicates non-formulary drug at [facility]. Approval by Infectious Disease Specialist required before non-formulary drugs may be ordered and/or dispensed. :24 MICROALBUMIN: CREATININE RATIO Comments: PATIENT WAS FASTINGPERFORMED BY: Wicked Loot6370 [facility] [id number] (53752) AND (53609) Microalb/Creat Ratio 1.3 {mg/g_creat} (Normal) Range: 0.0-30.0 Microalbumin, Urine 1.5 ug/mL (Normal) Range: 0.0-17.0 Creatinine, Urine 118.7 mg/dL (Normal) Range: 15.0-278.0 :24 METABOLIC PANEL, COMPREHENSIVE Comments: PATIENT WAS FASTINGPERFORMED BY: [employer]icked [employer]6370 [facility] [id number] (38953) ALT (SGPT) 22 [iU]/L (Normal) Range: 0-32 [...] mg/dL (Normal) Range: 65-99 :24 LIPID PANEL (21542) Comments: PATIENT WAS FASTINGPERFORMED BY: HelloSign70 GrowishUNC Health [facility] [id number] LDL/HDL Ratio 2.6 {ratio_units} (Normal) Range: 0.0-3.2 Comment: LDLCOM (Normal) Comments: Possible Familial Hypercholesterolemia. FH should be suspected whenfasting LDL cholesterol is above 189 mg/dL or non-HDL cholesterolis above 219 mg/dL. A family history of high cholesterol and heartdise ase in 1st degree relatives should be collected. J Clin Dionujl2738;5:133-140 LDL Cholesterol Calc 206 mg/dL (Abnormal) Range: 0-99 VLDL Cholesterol Marysol 16 mg/dL (Normal) Range: 5-40 HDL Cholesterol 79 mg/dL (Normal) Comments: According to ATP-III Guidelines, HDL-C >59 mg/dL is considered anegative risk factor for CHD. Triglycerides 82 mg/dL (Normal) Range: 0-149 Cholesterol, Total 301 mg/dL (Abnormal) Range: 100-199 :24 CBC WITH MANUAL DIFF Comments: PATIENT WAS FASTINGPERFORMED BY: Wicked Loot6370 [facility] SpringfieldSymtavisionUNC Health [facility] [id number] Information: [id number] (63747) Immature Grans (Abs) 0.0 {x10E3/uL} (Normal) Range: [...] 3.77-5.28 WBC 4.8 {x10E3/uL} (Normal) Range: 3.4-10.8 0-Ytc-298511:31 [facility] DIGITAL & CAD Radiology Report See [...] Amor M.D.January 31, 2013 at 1:16:07 PM [id number] Signed GP/GP If you are the referring physician and wou ld like to consult with theradiologist who provided this interpretation, please contact Yan Enriquez at [phone]. If this radiologist is unavailable, youwill be directed to another radiol ogist to assist. If you are a patient with a question regarding this report, pleasecontactyour referring physician directly. Professional Interpretation Provided By: [employer], Phone ,Fa x [phone] These documents contain legally protected and confidential [...] 01/31/13 1326 Sign by: Tylor Amor MD 7-Pce-291417:31 DEXA BONE DENSITY STUDY (HP) Radiology Report [...] Amor M.D.January 31, 2013 at 1:13:05 PM [id number] Signed GP/GP If you are the referring ysician and would like to consult with theradiologist who provided this interpretation, please contact Yan Enriquez at [phone]. If this radiologist is unavailable, youwill be directed to another radiologist to assist. If you are a patient with a question regarding this report, pleasecontactyour referring physician directly. Professional Interpretation Provided By: [employer], Phone , These documents contain legally protected [...] 1235 by Yordy Amor MDranscribed on 01/31/13 1317 by ITS IMPORTSign by Tylor Amor MD on 0 01/31/13 1318 Sign by: Tylor Amor MD 49-Urb-47183:51 LIPID PANEL (48172) Comments: PATIENT WAS FASTINGPERFORMED BY: CURRENT [facility] [id number] Information: [id number] LDL Cholesterol Calc 162 mg/dL (Abnormal) Range: 0-99 LDL/HDL Ratio 2.7 {ratio_units} (Normal) Range: 0.0-3.2 VLDL Cholesterol Marysol 24 mg/dL (Normal) Range: 5-40 HDL Cholesterol 61 mg/dL (Normal) Comments: According to ATP-III Guidelines, HDL-C >59 mg/dL is considered anegative risk factor for CHD. Triglycerides 122 mg/dL (Normal) Range: 0-149 Cholesterol, Total 247 mg/dL (Abnormal) Range: 100-199 49-Ypb-432132:18 Microscopic Examination Comments: PATIENT WAS FASTINGPERFORMED BY: QualneticsDublin [place] [id number] Bacteria None seen (Normal) Epithelial Cells (non renal) 0-10 {/hpf} (Normal) Range: 0 - 10 RBC 0-3 {/hpf} (Normal) Range: 0 - 3 WBC 0-5 {/hpf} (Normal) Range: 0 - 5 69-Gih-437679:18 METABOLIC PANEL, COMPREHENSIVE Comments: PATIENT WAS FASTINGPERFORMED BY: ROBERT [employer] Iezeil9683 [facility] [id number] (85446) ALT (SGPT) 16 [iU]/L (Normal) Range: 0-40 [...] Glucose, Serum 88 mg/dL (Normal) Range: 65-99 95-Uay-275100:18 URINALYSIS, W/ MICRO (21228) Comments: PATIENT WAS FASTINGPERFORMED BY: [employer] Solqug3461 [facility] [id number] Microscopic Examination See below: (Normal) Microscopic Examination MICRON (Normal) Comments: Microscopic follows if indicated. Nitrite, Urine Negative (Normal) Urobilinogen,Semi-Qn 0.2 mg/dL (Normal) Range: 0.0-1.9 Bilirubin Negative (Normal) Occult Blood Negative (Normal) Ketones Negative (Normal) Glucose Negative (Normal) Protein Negative (Normal) WBC Esterase Negative (Normal) Appearance Clear (Normal) Urine-Color Yellow (Normal) pH 5.5 (Normal) Range: 5.0-7.5 Specific Rochelle 1.018 (Normal) Range: 1.005-1.030 :18 LIPID PANEL (71150) Comments: PATIENT WAS FASTINGPERFORMED BY: [employer]estylelin6370 [facility] [id number] LDL/HDL Ratio 2.8 {ratio_units} (Normal) Range: 0.0-3.2 [...] MANUAL DIFF Comments: PATIENT WAS FASTINGPERFORMED BY: Innotech SolarSaint Barnabas Behavioral Health CenterThkiys1245 [facility] [id number] Information: [id number] ([id number]) Immature Grans (Abs) 0.0 {x10E3/uL} (Normal) Range: [...] 3.77-5.28 WBC 4.4 {x10E3/uL} (Normal) Range: 4.0-10.5 :52 Lipid Panel (37776) Comments: PATIENT WAS FASTINGPERFORMED BY: [facility]6[address] [facility] [id number] Information: [id number] LDL/HDL Ratio 2.2 {ratio_units} (Normal) Range: 0.0-3.2 LDL Cholesterol Calc 146 mg/dL (Abnormal) Range: 0-99 VLDL Cholesterol Marysol 23 mg/dL (Normal) Range: 5-40 HDL Cholesterol 67 mg/dL (Normal) Comments: According to ATP-III Guidelines, HDL-C >59 mg/dL is considered anegative risk factor for CHD. Triglycerides 115 mg/dL (Normal) Range: 0-149 Cholesterol, Total 236 mg/dL (Abnormal) Range: 100-199 [id number]-Yup-[id number]:32 BILAT SCRN DIGITAL & CAD Radiology Report [...] been nosignificant change since the prior st udy. IMPRESSION:Stable bilateral screening mammogram. Yearly follow-up recommended. (A) ASSESSMENT CATEGORY:BIRADS Category 2: Benign finding(s). A letter regarding these resultswill be sent to the patient by the facility within 30 days. Approximately 10% of breast cancers are not detected by mammography. Anormal mammogram should not delay biopsy of a clinically suspiciousabnormality. To consult with a radiologist regarding this report, please call our [id number] line @ Dictated on 01/18/12 1254 by Mt COLLINS,Yordyranscribed on 01/18/12 1457 by ITS IMPORTSign by Tylor Silverio MD on 01/18/12 1458 Sign by: Tylor Amor MD 82-Mif-712648:12 POTASSIUM SERUM (33260) Comments: PATIENT NOT FASTINGPERFORMED BY: [facility] [id number] Information: [id number] Potassium, Serum 5.2 mmol/L (Normal) Range: 3.5-5.2 28-Ipd-13525:15 CBCD,SMEAR DIFF RED CELL MORPH SeeNote {NORMAL} [...] 4.2-5.4 WBC 6.9 K/mm3 (Normal) Range: 4.4-11.0 96-Fpr-111799:37 COMP METABOLIC CO2 32.0 mmol/L (Normal) Range: [...] Serum 9.8 mg/dL (Normal) Comments: PERFORMED BY: [facility] [id number] 59 Range: 8.6-10.2 : Phosphorus, Serum 3.6 mg/dL (Normal) Comments: PERFORMED BY: [facility]6[address] [facility] [id number] 59 Range: 2.5-4.5 :59 Protein Electro, Random Urine Comments: PERFORMED BY: [facility]6[address] [facility] [id number] Please note: SPRCS (Normal) Comments: Protein electrophoresis scan will follow via computer, mail, orcourier delivery. Gamma Globulin, U 19.1 % (Normal) M-Faisal, % Not Observed % (Normal) Beta Globulin, U 32.4 % (Normal) Ppike-0-Iluhnjec, U 20.5 % (Normal) Uafnz-7-Wkgmirfw, U 4.1 % (Normal) Albumin, U 23.9 % (Normal) Protein,Total,Urine 6.5 mg/dL (Normal) Range: 0.0-15.0 :59 Protein Electro.,S Comments: PERFORMED BY: [facility] [id number] Please note: SPRCS (Normal) Comments: Protein electrophoresis scan will follow via computer, mail, orcourier delivery. A/G Ratio 1.2 (Normal) Range: 0.7-2.0 Globulin, Total 3.2 g/dL (Normal) Range: 2.0-4.5 M-Faisal Not Observed g/dL (Normal) Prtom-3-Pzrzumzi 0.2 g/dL (Normal) Range: 0.1-0.4 Mtluf-6-Xkcxqvjb 0.8 g/dL (Normal) Range: 0.4-1.2 Beta Globulin 1.1 g/dL (Normal) Range: 0.6-1.3 Gamma Globulin 1.1 g/dL (Normal) Range: 0.5-1.6 Albumin 3.9 g/dL (Normal) Range: 3.2-5.6 Protein, Total, Serum 7.1 g/dL (Normal) Range: 6.0-8.5 PTH, Intact 27 pg/mL (Normal) Comments: PERFORMED BY: [facility]6[address] [facility] [id number] 5:59 Range: 15-65 Sedimentation 5 mm/h (Normal) Comments: PERFORMED BY: [facility] Gdmlju9339 [facility] [id number] 5:59 Rate-Westergren Range: 0-30 TSH 1.050 {uIU/mL} Comments: PERFORMED BY: [facility] Uxviiy4973 [facility] [id number] 5:59 (Normal) Range: 0.450-4.500 Vitamin D, 25-Hydroxy 39.3 ng/mL Comments: PERFORMED BY: [facility] Oiowef0204 [facility] [id number] 5:59 (Normal) Range: 32.0-100.0 Comments: Recent studies consider the lower limit of 32.0 ng/mL to be athreshold for optimal health.Carrington WICK. J Nutr. 2004;135(2):317-22. :55 BILAT SCRN DIGITAL [...] be [facility] within 30 days. Approximately 10% of breast cancers are not detected by mammography. Anormal mammogram should not delay biopsy of a clinically suspiciousabnormality. Dictated on 12/30/10 1348 Yordy Ortizranscribed on 01/05/11 1047 by ITS IMPORTSign by Tylor Amor on 01/05/11 1048 Sign by: Tylor Amor 4-Jnl-524917:54 DEXA BONE DENSITY STUDY (HP) Radiology Report See Note (Normal) Comments: CLINICAL:Female, 60 years old. The patient is postmenopausal. EXAMINATION:DUAL ENERGY X-RAY ABSORPTIOMETRY / DEXA. TECHNIQUE:Bone Mineral Density (BMD) measurements of lumbar spine and bila teralhipswer e obtained using a [employer] scanner.. COMPARISON:Comparison is made with prior study [...] on 12/30/10 1407 Sign by: Tylor Amor 6-Hbz-193214:03 METABOLIC PANEL, COMPREHENSIVE Comments: PATIENT WAS FASTINGPERFORMED BY: [facility]CoSaint [facility]ab[facility] Health CenterZyulgn8678 [facility] [id number] ([id number]) ALT (SGPT) 17 [iU]/L (Normal) Range: 0-40 [...] Glucose, Serum 97 mg/dL (Normal) Range: 65-99 :03 LIPID PANEL (56994) Comments: PATIENT WAS FASTINGPERFORMED BY: LogicNetsSaint Barnabas Behavioral Health CenterBckpcs1671 [facility] [id number] LDL Cholesterol Calc 176 mg/dL (Abnormal) Range: [...] MANUAL DIFF Comments: PATIENT WAS FASTINGPERFORMED BY: LogicNetsSaint Barnabas Behavior[facility] Health CenterPcruay8924 [facility] [id number] Information: [id number] (03951) Baso (Absolute) 0.1 {x10E3/uL} (Normal) Range: 0.0-0.2 [...] PANEL, COMPREHENSIVE Comments: PATIENT WAS FASTINGPERFORMED BY: LabCoSaint Barnabas Behavioral Health CenterBrxbbi6431 [facility] [id number] (28440) ALT (SGPT) 23 [iU]/L (Normal) Range: 0-40 [...] mg/dL (Normal) Range: 65-99 :38 LIPID PANEL (23626) Comments: PATIENT WAS FASTINGPERFORMED BY: [employer]70 [facility] [id number] LDL Cholesterol Calc 143 mg/dL (Abnormal) Range: [...] three months (approximately); PATIENT WAS FASTINGPERFORMED BY: [employer]70 [facility] [id number] Information: ADD [id number] AND DRAW FEE 99 5101 (75283) Baso (Absolute) 0.0 {x10E3/uL} (Normal) Range: 0.0-0.2 [...] 3.80-5.10 WBC 4.4 {x10E3/uL} (Normal) Range: 4.0-10.5 47-Qvb-582437:03 BMP BUN/CRE 24.4 {RATIO} (Abnormal) Range: 10-20 [...] (Normal) GLU 91 mg/dL (Normal) Range: 70-110 63-Haj-96071:00 EPIFANIO CULTURE-OTHER (93950) Comments: PATIENT NOT FASTINGPERFORMED BY: LabCoCarly [place] 2059570 [facility] [id number] Information: SRC: THROAT Result 1 RRF (Normal) Comments: Routine respiratory michelle Upper Respiratory Culture Final report (Normal) 28-Vzq-532176:43 Rapid Strep Test, Office (52646) Rapid Strep Test, Office Negative (Normal) :35 CBCD,SMEAR DIFF CELLS COUNTED 100 (Normal) EOS [...] Report See Note (Normal) Comments: Exam Number: [id number] CLINICAL:Syncope and CT BRAIN WITH AND WITHOUT [...] There is no rmal enhancement of the [place], without a demonstrated aneurysm. Normal [...] GLU 5 HR GLU GTT-5 HOUR from 921:C12179U. 37 Range: 70-110 : GLU GTT-4 HOUR <TEST NOT PERFORMED> Comments: 5HR GTT GLU 4 HR GLU GTT-4 HOUR from 22:T49092R. 45 mg/dL (Normal) Range: 70-110 : GLU GTT-3 HOUR 78 mg/dL (Normal) Comments: 5HR GTT GLU 3 HR GLU GTT-3 HOUR from 22:F06873W. 40 Range: 70-110 98-Mqx-221094: GLU GTT-2 HOUR 134 mg/dL (Abnormal) Comments: 5HR GTT GLU 2 HR GLU GTT-2 HOUR from 22:B35411H. 40 Range: 70-120 :4 GLU GTT-1 HOUR 155 mg/dL (Normal) Comments: 5HR GTT GLU 1 HR GLU GTT-1 HOUR from 22:H03774B. 0 Range: 120-170 :0 GLU GTT-30 min. 180 mg/dL (Abnormal) Comments: 5HR GTT GLU 1/2 HR GLU GTT-30 min. from 921:V81505B. 8 Range: 110-170 Comments: SPECIMEN GROSSLY HEMOLYZED :3 GLU GTT-FASTING 104 mg/dL (Normal) Comments: 5HR GTT FASTING GLU GTT-FASTING from 921:F19827P. 5 Range: 70-110 Comments: GLUCOSE TOLERANCE TEST Reference Interval Non- Adults Fasting 70 - 110 30 minutes 110 - 170 1 hour 120 - 170 2 hour 70 - 120 3 hour 70 - 110 4 hour 70 - 110 5 hour 70 - 110 55-Zrs-07287:3 BEDSIDE GLU 97 mg/dL (Normal) Range: 70-110 3 Comments: Policy and Physicians Orders followed 89-Kjr-308667:47 Urinalysis, Office (41186) UA - BILIRUBIN Small (Normal) UA - BLOOD Hemolyzed Small (Normal) UA - GLUCOSE Negative (Normal) UA - KETONES Negative mg/dL (Normal) UA - LEUKOCYTE ESTERASE Small (Normal) Comments: aw UA - NITRITE Negative (Normal) UA - PH 5.0 (Normal) UA - PROTEIN Negative mg/dL (Normal) UA - SPECIFIC GRAVITY 1.025 (Normal) URINE UROBILINGN RONALD TIMED Normal mg/dL (Normal) 32-Daq-846211:23 UNILAT RT DIAG DIGITAL & CAD Radiology Report See Note (Normal) Comments: Exam Number: [id number] MAMMOGRAM, UNILATERAL RIGHT DIAGNOSTIC DIGITAL AND CAD [...] werealso e xamined with computer-aided detection software ([employer] Reported By: AUBRIE CROW M.D. 59-Omk-423069:19 ABDOMEN W/WO IV CONTRAST Radiology Report See Note (Normal) Comments: Exam Number: [id number] CLINICAL:Liver lesion CT ABDOMEN WITH AND WITHOUT [...] sponge kidneys. Reported By: GREGG GLEZ M.D. 59-Hpb-17409:28 SERUM CRE & GFR Comments: CALL RESULTS TO [phone] CREAT,SERUM 0.8 mg/dL (Normal) Range: 0.6-1.0 EST GFR 78 mL/min (Normal) EST GFR - AA 95 mL/min (Normal) 06-Owu-07389:29 CERV SPINE,MIN 4 VIEWS Radiology Report See Note (Normal) Comments: Exam Number: [id number] CERVICAL SPINE SERIES, MULTIPLE VIEWS INCLUDING BILATERAL [...] spine series. Reported By: EMMA JETT M.D. 2-Iun-661347:16 UNILAT RT DIAG DIGITAL & CAD Radiology Report See Note (Normal) Comments: Exam Number: [id number] MAMMOGRAM, UNILATERAL RIGHT DIAGNOSTIC DIGITAL AND CAD [...] mammograms werealso examined with computer-aided detection software ([employer]). Reported By: AUBRIE CROW M.D. 64-Kti-347388:46 BILAT SCRN DIGITAL & CAD Radiology Report See Note (Normal) Comments: Exam Number: [id number] BILATERAL SCREENING MAMMOGRAPHY HISTORYRoutine screening. COMPARISONComparison is [...] Elsewhere no suspiciouscluster of calcification, area of computer architect ural distortion, orthree-dimensional spiculated masses. IMPRESSION1. [...] mammogramswere also examined with computer- aided detection software([employer] Reported By: CASSIE QUINTEROS M.D. 74-Sri-343067:17 LIPID CHOL 223 mg/dL (Abnormal) Comments: <200 [...] 500 mg/dL VLDL 19 mg/dL (Normal) Range: 23-Jul-200710:17 LIVER ALB 3.5 g/dL (Normal) Range: 3.4-5.0 [...] 500 mg/dL VLDL 11 mg/dL (Normal) Range: :12 LIVER ALB 3.7 g/dL (Normal) Range: 3.4-5.0 ALK P 63 U/L (Normal) Range: 50-136 ALT 37 [iU]/L (Normal) Range: 30-65 AST 23 U/L (Normal) Range: 15-37 D BILI 0.07 mg/dL (Normal) Range: 0.00-0.30 T BILI 0.41 mg/dL (Normal) Range: 0.00-1.00 T PROT 7.0 g/dL (Normal) Range: 6.4-8.2 57-Oom-240685:29 MAMM, UILAT DIAG DIGITAL & CAD Radiology Report See Note (Normal) Comments: Exam Number: [id number] MAMMOGRAM, LEFT UNILATERAL DIAGNOSTIC DIGITAL AND CAD [...] mammograms werealso examined with computer-aided detection software ([employer], [employer] Reported By: AUBRIE CROW M.D. :40 MAMM, TONY [place] DIGITAL & CAD Radiology Report See Note (Normal) Comments: Exam Number: [id number] MAMMOGRAM, BILATERAL SCREENING DIGITAL & CAD Full [...] mammograms werealso examined with computer-aided detection software ([employer], [employer] Reported By: AUBRIE CROW M.D. 16-Dzb-504436:58 CULTURE, URINE URINE CULTURE See Note {CFU/mL} [...] $$$ >=256 R TRIMETHOPRIM/SULFAMETHOXAZ $$ <=10 S 82-Cyv-117449:58 ROUTINE UA BILIRUBIN URINE SeeNote (Normal) Comments: [...] 0.2 EU/dl (Normal) Range: 0.2 - 1.0 10-Jdr-811395:10 CBC HCT 41.3 % (Normal) Range: 37-47 HGB 14.2 g/dL (Normal) Range: 12.0-16.0 MCH 30.6 pg (Normal) Range: 27.0-32.0 MCHC 34.4 g/dL (Normal) Range: 32-36 MCV 88.9 fL (Normal) Range: 81-99 PLT 325 K/mm3 (Normal) Range: 150-450 RBC 4.65 {M/mm3} (Normal) Range: 4.2-5.4 RDW 13.3 % (Normal) Range: 11.6-14.6 WBC 6.4 K/mm3 (Normal) Range: 4.4-11.0 65-Ldz-983346:10 COMP METABOLIC A/G 1.1 {RATIO} (Normal) Range: [...] T PROT 7.6 g/dL (Normal) Range: 6.4-8.2 74-Kcq-556510:10 PFLIP CHOL 231 mg/dL (Abnormal) Comments: <200 [...] mg/dL VLDL 20 mg/dL (Normal) Range: 5-40 54-Qnf-894647:10 ROUTINE UA BILIRUBIN URINE SeeNote (Normal) Comments: [...] Indication: Low back pain Planned Observations IRON (24446)Indication: Anemia On: 72-Obj-688133:06 Request CBC, Platelets & Auto Diff (17293)Indication: Anemia On: 08-Vol-149402:05 Request MICROALBUMIN: CREATININE RATIO (84729) AND (69419)Indication: Benign essential hypertension On: 18-Mya-219820:03 Request Comments: Jul 2017 URINALYSIS (40902)Indication: Benign essential hypertension On: 33-Mks-196341:03 Request Comments: Jul 2017 TSH (20092)Indication: Benign essential hypertension On: 60-Qfa-843414:03 Request Comments: Jul 2017 CBC, Platelets & Auto Diff (18222)Indication: Benign essential hypertension On: :03 Request Comments: Jul 2017 Metabolic Panel, Comprehensive (33826)Indication: Benign essential hypertension On: 87-Ulz-142367:02 Request Comments: Jul 2017 URINALYSIS, W/ MICRO (74917)Indication: Benign essential hypertension On: :22 Request METABOLIC PANEL, COMPREHENSIVE (14529)Indication: Benign essential hypertension On: :22 Request LIPID PANEL (57532)Indication: Benign essential hypertension On: :22 Request CBC with auto diff (86443)Indication: Benign essential hypertension On: :22 Request Blood Glucose , Office (88929)Indication: SYNCOPE, NOS On: :23 Request LIPID PANEL (56749)Indication: Hyperlipidemia On: :37 Request HEPATIC FUNCTION PANEL (27942)Indication: Hyperlipidemia On: :37 Request CALCIFIDIOL (23622) VIT D 25Indication: Osteoporosis On: :50 Request CALCIUM SERUM (04337)Indication: Osteoporosis On: :48 Request TSH (87688)Indication: Osteoporosis On: :48 Request UPEP (32066)Indication: Osteoporosis On: :48 Request SPEP (57157)Indication: Osteoporosis On: :47 Request SED RATE ERYTHROCYTE (18257)Indication: Osteoporosis On: :47 Request PHOSPHORUS (77583)Indication: Osteoporosis On: :47 Request PARATHORMONE (13239)Indication: Osteoporosis On: :47 Request URINALYSIS, W/ MICRO (77038)Indication: Benign essential hypertension On: 37-Xob-154715:00 Request CBC with manual diff (97800)Indication: Benign essential hypertension On: :40 Request Metabolic Panel, Comprehensive (91532)Indication: Hyperkalemia On: :40 Request Lipid Panel (85181)Indication: Hypercholesterolemia On: :40 Request METABOLIC PANEL, COMPREHENSIVE (78260)Indication: Hypercholesterolemia On: :16 Request LIPID PANEL (01941)Indication: Hypercholesterolemia On: :16 Request Comments: in three months (approximately) Metabolic Panel, Basic (08827)Indication: Benign essential hypertension On: 36-Nab-387210:15 Request Comments: 2 weeks GLUCOSE TOLERANCE TEST (GTT) 5 hour (34057)Indication: SYNCOPE, NOS On: :49 Request Blood Glucose , Office (43526)Indication: SYNCOPE, NOS On: 29-Wyz-354476:47 Request Comments: 92 URINALYSIS W/O MICRO (68384)Indication: Benign essential hypertension On: :35 Request METABOLIC PANEL, COMPREHENSIVE (35520)Indication: Benign essential hypertension On: :35 Request LIPID PANEL (84697)Indication: Benign essential hypertension On: :35 Request CBC WITH MANUAL DIFF (69842)Indication: Benign essential hypertension On: :34 Request MICROALBUMIN: CREATININE RATIO (71484) AND (37052)Indication: Benign essential hypertension On: :08 Request METABOLIC PANEL, COMPREHENSIVE (91366)Indication: Benign essential hypertension On: :08 Request LIPID PANEL (37437)Indication: Benign essential hypertension On: 18-Qlz-675863:08 Request CBC WITH MANUAL DIFF (96074)Indication: Benign essential hypertension On: :08 Request CBC (Auto) (13844)Indication: Hypercholesterolemia On: 8-Zjp-112176:47 Request Metabolic Panel, Comprehensive (95321)Indication: Hypercholesterolemia On: 9-Iuu-540552:47 Request Lipid Panel (43613)Indication: Hypercholesterolemia On: 6-Uom-215312:46 Request Comments: in three months (approximately) HEPATIC FUNCTION PANEL (33377)Indication: Hypercholesterolemia On: :21 Request LIPID PANEL (14123)Indication: Hypercholesterolemia On: 66-Url-280464:21 Request Comments: in six months Planned Encounters Medical; 6 Month FU - On: 15-Apr-2019 16:15 [facility] Peggy Lott CNP, CNP, Mary E Planned Procedures SCREENING DIGITAL TOMOSYNTHESIS OF On: 15-Oct-2018 Intent BREAST (86346)By: Peggy Lott CNP, CNP, Mary E DRAIN/INJECT, JOINT/BURSA (84705)By: On: 15-Oct-2018 Intent Peggy Lott CNP, CNP, Mary E Radiology - Shoulder - RightBy: On: 10-Sep-2018 Intent Peggy Lott CNP, CNP, Mary E Toradol Injection, 30 mg (J1885)By: On: 27-Feb-2018 Intent Peggy Lott CNP, CNP, Peggy Saldana Toradol Injection, 30 mg (J1885)By: On: 19-Feb-2018 Intent Oren MIHIR Peggy Garciaa FORESTRY AND WILDLIFE MANAGER, Thuy Radiology - Cervical SpineBy: Ciesa On: 19-Feb-2018 Intent Peggy ASH CNP, Peggy Saldana Wax Currettes (72445)By: Slarb REFRIGERATION MECHANIC HELPER, On: 26-Jan-2018 Intent Reyna Ear Irrigation (19105)By: Slarb On: 26-Jan-2018 Intent REFRIGERATION MECHANIC HELPER Reyna PARATHYROID SCAN WITH MIBI AND I-123 On: 14-Jan-2018 Intent (61663)By: Radhaa Peggy ASH CNP, Peggy Saldana Toradol Injection, 30 mg (J1885)By: On: 12-Jan-2018 Intent Oren MIHIR Peggy Garciaa FORESTRY AND WILDLIFE MANAGER, Thuy SCREENING DIGITAL TOMOSYNTHESIS OF On: 06-Sep-2017 Intent BREAST (27507)By: Oren MIHIR Peggy Lott FORESTRY AND WILDLIFE MANAGER, Thuy DEXA SCAN AXIAL SKELETON (41719)By: On: 06-Sep-2017 Intent Oren ASH Peggy Saldana Citoma FORESTRY AND WILDLIFE MANAGER, Thuy Holter Monitor 24 hrsBy: Radhastanley ASH, On: 23-Jun-2017 Intent Peggy Garciaa MIHIR, Thuy ELECTROCARDIOGRAM, COMPLETE (ECG) On: 23-Jun-2017 Intent (11038)By: Radhastanley ASH Peggy Saldana Citoma FORESTRY AND WILDLIFE MANAGER, Thuy ELECTROCARDIOGRAM, COMPLETE (ECG) On: 10-Aug-2016 Intent (20923)By: Oren MIHIR Peggy Saldana Citoma FORESTRY AND WILDLIFE MANAGER, Thuy ELECTROCARDIOGRAM, COMPLETE (ECG) On: 20-Jul-2016 Intent (51921)By: Radhastanley ASH Peggy Garciaa FORESTRY AND WILDLIFE MANAGER, Thuy MAMMOGRAM BREAST BILATERAL SCREENING On: 20-Jul-2016 Intent DIGITAL (96757)By: Radhastanley ASH Peggy Saldana Citoma FORESTRY AND WILDLIFE MANAGER, Thuy INJECTION, PROLIA (J0897)By: Iris On: 16-Oct-2015 Intent Silvana COLLINS Comments: Lot:[id number]:05/14Dose:60mg/mlRoute:sub qSite:l armGiven By:SILAS signed DEXA SCAN AXIAL SKELETON (61055)By: On: 08-Jun-2015 Intent Silvana Simmons MD MAMMOGRAM, SCREENING, BOTH BREAST On: 08-Jun-2015 Intent (77756)By: Silvana Simmons MD Echo CompleteBy: Silvana Simmons MD On: 10-Nov-2014 Intent Holter Monitor 24 hrsBy: Iris COLLINS, On: 10-Nov-2014 Intent Silvana Holder Carotid DopplerBy: Silvana Simmons MD On: 10-Nov-2014 Intent M FLU VAC, SPLIT, >3 YEARS, INTRAMUSC On: 26-Sep-2013 Intent (79747)By: Silvana Simmons MD Comments: Lot #:[id number] date:05.10Amount given:0.5mlRoute: IMSite given:L DltdGiven by: Paige ANAYA and ABN signed IMMUNIZ ADMNIN, 1 VAC, SNGL/COMBO On: 26-Sep-2013 Intent (50501)By: Silvana Simmons MD EKG (34327)By: PAIGE Rees On: 26-Sep-2013 Intent Eprescribed prescriptions (G8553)By: On: 12-Feb-2013 Intent Long Radha JONES L Ear Irrigation (22045)By: Lucio On: 18-Jan-2013 Intent Jayde JONES Comments: Ear Irrigation performed on: r earAmount/color removed cerumen:brownish moderate amountOUtcome:pt tolerated Used wax curettes Wax CurettesBy: Jayde Valdes LPN On: 18-Jan-2013 Intent Phenergan Injection, up to 50 mg On: 15-Jan-2013 Intent (J2550)By: Peggy Lott CNP Comments: give 25mg IMLot #[id number]-left hipDose-25mggiven by: Claudia Browne LPN CNP, Mary E IMMUNIZ ADMNIN, 1 VAC, SNGL/COMBO On: 14-Aug-2012 Intent (45025)By: Silvana Simmons MD FLU VAC, SPLIT, >3 YEARS, INTRAMUSC On: 14-Aug-2012 Intent (62928)By: Silvana Simmons MD DXA, BONE DENSITY, AXIAL SKELETON On: 14-Aug-2012 Intent (31247)By: Silvana Simmons MD MAMMOGRAM, SCREENING, BOTH BREASTS On: 14-Aug-2012 Intent (62358)By: Silvana Simmons MD Breast Screening - BilateralBy: On: 09-Jan-2012 Intent Silvana Simmons MD EKG (51636)By: Jayde Valdes LPN On: 31-Oct-2011 Intent Comments: sinus rhythm , borderline T abnormal ant leads MAMMOGRAM, SCREENING, BOTH BREASTS On: 18-Nov-2010 Intent (93272)By: Silvana Simmons MD DXA, BONE DENSITY, AXIAL SKELETON On: 18-Nov-2010 Intent (92320)By: Silvana Simmons MD Wax CurettesBy: PAIGE Rees On: 26-Mar-2010 Intent Ear Irrigation (78189)By: Cabrera, On: 26-Mar-2010 Intent PAIGE SPECIMEN HNDLNG/TRNSPRT, OFFC > LAB On: 24-Nov-2009 Intent (02514)By: PAIGE Rees EEGBy: Citoma Peggy ASH Cigeovany ASH, On: 12-Aug-2009 Intent Peggy Saldana Holter Moniter (78039)By: Ciesa On: 12-Aug-2009 Intent MIHIR Thuy Cigeovany ASH Thuy CT - Brain/HeadBy: Oren ASH Thuy On: 12-Aug-2009 Intent Oren ASH Thuy Bio Z (61880)By: Sydneeesa MIHIR Thuy On: 12-Aug-2009 Intent Oren ASH Thuy Echo CompleteBy: Sydneeesa MIHIR Thuy On: 12-Aug-2009 Intent Oren ASH Thuy Cartoid DopplerBy: Oren ASH Thuy On: 12-Aug-2009 Intent Oren ASH Thuy EKG (34117)By: Reanna Becker On: 12-Aug-2009 Intent Radiology - Cervical SpineBy: On: 04-Dec-2008 Intent Silvana Simmons MD Breast Diagnostic - RightBy: Iris On: 17-Nov-2008 Intent Silvana COLLINS Comments: abnormal mammo, 04-04 due for follow up EKG (04940)By: Silvana Simmons MD On: 17-Nov-2008 Intent MAMMOGRAM, SCREENING, BOTH BREASTS On: 27-Aug-2007 Intent (43315)By: Silvana Simmons MD EKG (66318)By: Silvana Simmons MD On: 27-Aug-2007 Intent Clinical Breast Examination On: 12-Jan-2007 Intent (G0101)By: Silvana Simmons MD MAMMOGRAM, SCREENING, BOTH BREASTS On: 12-Jan-2007 Intent (94619)By: Silvana Simmons MD Comments: after 02-15-07 Toradol Injection, 30 mg (J1885)By: On: 25-Oct-2006 Intent MIGUEL BERMAN CNP Comments: Given IM by Regino. Given inj to prevent ER visit. Pt has history of going to ER with same pain. Radiology - Lumbar SpineBy: CULLEN On: 25-Oct-2006 Intent MIGUEL ASH Planned Medications INJECTION, KETOROLAC TROMETHAMINE, PER 15 MG Ordered: 12-Jan-2018 Pending Peggy Lott CNP E Ciesa FORESTRY AND WILDLIFE MANAGER, Thuy INJECTION, KETOROLAC TROMETHAMINE, PER 15 MG Ordered: 19-Feb-2018 Pending Ciesa Peggy ASH E Ciesa FORESTRY AND WILDLIFE MANAGER, Thuy INJECTION, KETOROLAC TROMETHAMINE, PER 15 MG Ordered: 27-Feb-2018 Pending Ciesa Peggy ASH E Ciesa FORESTRY AND WILDLIFE MANAGER, Thuy INJECTION, PROLIA Ordered: 16-Oct-2015 Pending Silvana Simmons MD Phenergan 50 MG/ML Injection Solution Ordered: 15-Jan-2013 Pending Ciesa MIHIR Thuy Ciesa FORESTRY AND WILDLIFE MANAGER, Thuy Instructions Name Dates Details Nonsmoker : [...] patient does not have durable power of [place] attorney or living will. The patient has [...] compliant with instructions. Current medication use: no christpoh End: 12-May-2011 13:16 e effects, compliant with [...] 12-Aug-2009 11:58 ssociated with dizziness (was watching grandauContinuumter go aroung on a Pushpayry go round), while the symptoms have not [...] ,emotional problems (depression) ,hypertension and other (hyperlipidemia, [place], low back pain, osteopenia ). Note for [...] [facility] End: 21-Aug-2006 15:45 Payers [place]/Medicare Lilliana Felix; stanley guarantor
--- OUTSIDE RECORDS SUMMARY | 2018-12-20 23:20 | XMS RPT_ITS | Continuity of Care Document ---
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 (Normal) Range: 12.3-15.4 MCHC 33.2 g/dL (Normal) Range: 31.5-35.7 MCH 29.7 pg (Normal) Range: 26.6-33.0 MCV 90 fL (Normal) Range: 79-97 Hematocrit 40.7 % (Normal) Range: 34.0-46.6 Hemoglobin 13.5 g/dL (Normal) Range: 11.1-15.9 RBC 4.54 {x10E6/uL} (Normal) Range: 3.77-5.28 WBC 5.7 {x10E3/uL} (Normal) Range: 3.4-10.8 :51 PARATHORMONE (69235) Comments: PATIENT NOT FASTINGPERFORMED BY: [facility] Hheeqj7750 [facility] [id number] PTH, Intact 66 pg/mL (Abnormal) Range: 15-65 :00 Urinalysis, Office (86476) UA - LEUKOCYTE ESTERASE Trace (Normal) UA [...] Urinalysis, Complete Comments: How was Urine Obtained? [facility] [address] [place], [place], [id number] MUCUS, URINE 0 SEEN {/hpf} (Normal) BACTERIA [...] (Normal) CLARITY Clear (Normal) COLOR Straw (Normal) 15-Lpi-96619:58 CBC W/Diff, Automated Comments: [facility] [address]mb[address] [place], [place], [id number] Absolute Lymph 1.16 {X10_3/ul} (Normal) Range: 0.83-4.51 [...] 4.2-5.4 WBC 3.2 K/mm3 (Abnormal) Range: 4.4-11.0 43-Ysm-16104:58 Comprehensive Metabolic Profil Comments: [facility] [address] [place], [place], [id number] GAP 8 (Normal) Range: 5-15 CO2 28.0 mmol/L (Normal) Range: 21.0-32.0 CL 104 mmol/L (Normal) Range: 98-107 K 4.0 mmol/L (Normal) Range: 3.5-5.1 NA 140 mmol/L (Normal) Range: 136-145 T BILI 0.90 mg/dL (Normal) Range: 0.20-1.00 ALT 25 U/L (Normal) Range: 13-56 Comments: Please note revised ALT reference range /28/2018. ALK P 66 U/L (Normal) Range: 45-117 [...] 7-18 GLU 96 mg/dL (Normal) Range: 70-110 04-Mrm-68306:58 Lipase Comments: [facility] [address] [place], [place], [id number] LIPASE 211 U/L (Normal) Range: 73-393 8-Jew-442646:30 MICROALBUMIN: CREATININE RATIO Comments: PATIENT NOT FASTINGPERFORMED BY: [facility]John [facility]6370 [facility] [id number] (84002) AND (08933) Microalb/Creat Ratio 3.2 {mg/g_creat} (Normal) Range: 0.0-30.0 Microalbumin, Urine 4.7 ug/mL (Normal) Creatinine, Urine 145.6 mg/dL (Normal) 1-Grs-126441:30 URINALYSIS (65319) Comments: PATIENT NOT FASTINGPERFORMED BY: CaptricityReynolds County General Memorial HospitalVbtjke6407 [facility] [id number] Microscopic Examination MICNIP (Normal) Comments: Microscopic not indicated and not performed. Nitrite, Urine Negative (Normal) Urobilinogen,Semi-Qn 0.2 mg/dL (Normal) Range: 0.2-1.0 Bilirubin Negative (Normal) Occult Blood Negative (Normal) Ketones Trace (Abnormal) Glucose Negative (Normal) Protein Negative (Normal) WBC Esterase Negative (Normal) Appearance Clear (Normal) Urine-Color Yellow (Normal) pH 5.5 (Normal) Range: 5.0-7.5 Specific Thaxton 1.022 (Normal) Range: 1.005-1.030 5-Hku-008604:30 TSH (THYROID STIMULATING Comments: PATIENT NOT FASTINGPERFORMED BY: [facility]John [facility]. [facility]6370 [facility] [id number] HORMONE) (45436) TSH 0.801 {uIU/mL} (Normal) Range: 0.450-4.500 2-Fin-125410:30 CBC, PLATELETS & AUT DIFF Comments: PATIENT NOT FASTINGPERFORMED BY: [facility]6370 [facility] [id number] Information: [id number] (67103) Immature Grans (Abs) 0.0 {x10E3/uL} (Normal) Range: [...] 3.77-5.28 WBC 5.6 {x10E3/uL} (Normal) Range: 3.4-10.8 6-Bbg-465610:30 METABOLIC PANEL, COMPREHENSIVE Comments: PATIENT NOT FASTINGPERFORMED BY: [facility] Mypysd4424 [facility] [id number] (45581) ALT (SGPT) 14 [iU]/L (Normal) Range: 0-32 [...] Glucose, Serum 96 mg/dL (Normal) Range: 65-99 10-Nkl-643218:37 Lipid Panel (23962) Comments: around April 2017; PATIENT WAS FASTINGPERFORMED BY: ROBERT [employer] Traininglin6370 [facility] [id number] LDL/HDL Ratio 1.1 {ratio_units} (Normal) Range: 0.0-3.2 Comments: LDL/HDL Ratio Men Women 1/2 Avg.Risk 1.0 1.5 Av g.Risk 3.6 3.2 2X Avg.Risk 6.2 5.0 3X Avg.Risk 8.0 6.1 LDL Cholesterol Calc 77 mg/dL (Normal) Range: 0-99 VLDL Cholesterol Marysol 23 mg/dL (Normal) Range: 5-40 HDL Cholesterol 72 mg/dL (Normal) Triglycerides 116 mg/dL (Normal) Range: 0-149 Cholesterol, Total 172 mg/dL (Normal) Range: 100-199 17-Syh-960507:37 POTASSIUM SERUM (06462) Comments: Order Date: 02/13/17Order Info: 2823-3 - KOrder Date: 02/13/17Order Info: 2823-3 - [facility] [address] [place], [place], [address] K 4.1 mmol/L (Normal) Range: 3.5-5.1 11-Smh-242951:20 Microscopic Examination Comments: PATIENT WAS FASTINGPERFORMED BY: [employer] RoadDublin [place] [id number] Bacteria None seen (Normal) Mucus Threads Present (Normal) Epithelial Cells (non renal) 0-10 {/hpf} (Normal) Range: 0 - 10 RBC None seen {/hpf} (Normal) Range: 0 - 2 WBC 0-5 {/hpf} (Normal) Range: 0 - 5 00-Mex-611171:20 METABOLIC PANEL, COMPREHENSIVE Comments: PATIENT WAS FASTINGPERFORMED BY: [facility]CoO[facility] Medical CenterOlrhui5806 [facility] [id number] (98809) ALT (SGPT) 17 [iU]/L (Normal) Range: 0-32 [...] Glucose, Serum 81 mg/dL (Normal) Range: 65-99 44-Lls-590724:20 URINALYSIS, W/ MICRO (00639) Comments: PATIENT WAS FASTINGPERFORMED BY: [employer] Kdhmob4292 [facility] [id number] Microscopic Examination See below: (Normal) Comments: Microscopic was indicated and was performed. Microscopic Examination MICRON (Normal) Comments: Microscopic follows if indicated. Nitrite, Urine Negative (Normal) Urobilinogen,Semi-Qn 0.2 mg/dL (Normal) Range: 0.2-1.0 Bilirubin Negative (Normal) Occult Blood Negative (Normal) Ketones Negative (Normal) Glucose Negative (Normal) Protein Negative (Normal) WBC Esterase Negative (Normal) Appearance Clear (Normal) Urine-Color Yellow (Normal) pH 6.5 (Normal) Range: 5.0-7.5 Specific Thaxton 1.013 (Normal) Range: 1.005-1.030 :20 CBC with auto diff (70403) Comments: PATIENT WAS FASTINGPERFORMED BY: [employer] Fifpku3368 [facility] [id number] Immature Grans (Abs) 0.0 {x10E3/uL} (Normal) Range: [...] 6.1 {x10E3/uL} (Normal) Range: 3.4-10.8 :20 TSH (62052) Comments: PATIENT WAS FASTINGPERFORMED BY: [facility]ityJohn [facility]. [facility] [place] [address] [id number] TSH 0.689 {uIU/mL} (Normal) Range: 0.450-4.500 :20 MICROALBUMIN: CREATININE RATIO Comments: PATIENT WAS FASTINGPERFORMED BY: [facility]John [facility]. [facility] [place] [address] [id number] (14167) AND (07593) Microalb/Creat Ratio <6.5 {mg/g_creat} (Normal) Range: 0.0-30.0 Microalbumin, Urine <3.0 ug/mL (Normal) Creatinine, Urine 46.2 mg/dL (Normal) :40 HEPATIC FUNCTION PANEL Comments: PATIENT WAS FASTINGPERFORMED BY: [facility]ippableOcean Medical CenterRfqjvy7828 [facility] [id number] (71164) ALT (SGPT) 38 [iU]/L (Abnormal) Range: 0-32 AST (SGOT) 35 [iU]/L (Normal) Range: 0-40 Alkaline Phosphatase, S 65 [iU]/L (Normal) Range: 39-117 Bilirubin, Direct 0.14 mg/dL (Normal) Range: 0.00-0.40 Bilirubin, Total 0.4 mg/dL (Normal) Range: 0.0-1.2 Albumin, Serum 4.3 g/dL (Normal) Range: 3.6-4.8 Protein, Total, Serum 6.8 g/dL (Normal) Range: 6.0-8.5 :40 LIPID PANEL (25006) Comments: PATIENT WAS FASTINGPERFORMED BY: [facility]John [facility]. [facility] [place], [place] [address] [id number] LDL/HDL Ratio 1.2 {ratio_units} (Normal) Range: 0.0-3.2 Comments: LDL/HDL Ratio Men Women 1/2 Avg.Risk 1.0 1.5 Av g.Risk 3.6 3.2 2X Avg.Risk 6.2 5.0 3X Avg.Risk 8.0 6.1 LDL Cholesterol Calc 84 mg/dL (Normal) Range: 0-99 VLDL Cholesterol Marysol 20 mg/dL (Normal) Range: 5-40 HDL Cholesterol 73 mg/dL (Normal) Triglycerides 98 mg/dL (Normal) Range: 0-149 Cholesterol, Total 177 mg/dL (Normal) Range: 100-199 4-Jij-113995:45 Culture, Urine Comments: [facility] [address], [address] CUUR See Note (Normal) Comments: Urine CultureRESULTS [...] >=320 R(NF) indicates non- formulary drug at [facility]. Approval by Infectious Disease Specialist required before non-formulary drugs may be ordered and/or dispensed. 03-Guu-447497:06 Urinalysis, Office (24061) UA - LEUKOCYTE ESTERASE Trace (Normal) UA - NITRITE Positive (Normal) URINE UROBILINGN RONALD TIMED Normal mg/dL (Normal) UA - PROTEIN Negative mg/dL (Normal) UA - PH 6 (Abnormal) UA - BLOOD Hemolyzed Small (Normal) UA - SPECIFIC GRAVITY 1.025 (Normal) UA - KETONES Negative mg/dL (Normal) UA - BILIRUBIN Negative (Normal) UA - GLUCOSE Negative (Normal) 59-Iad-660657:13 CBC, Platelets & Auto Comments: PATIENT WAS FASTINGPERFORMED BY: [facility]ableOcean Medical CenterMqnhms3486 [facility] [id number] Information: [id number] Diff (99733) Immature Grans (Abs) 0.0 {x10E3/uL} (Normal) Range: [...] 3.77-5.28 WBC 7.2 {x10E3/uL} (Normal) Range: 3.4-10.8 39-Bbj-798299:13 TSH (65886) Comments: PATIENT WAS FASTINGPERFORMED BY: ShippableOcean Medical CenterLhrslm5942 [facility] [id number] TSH 0.907 {uIU/mL} (Normal) Range: 0.450-4.500 00-Tvh-492569:13 Lipid Panel (02474) Comments: PATIENT WAS FASTINGPERFORMED BY: [facility]6370 [facility] [id number] LDL/HDL Ratio 2.2 {ratio_units} (Normal) Range: 0.0-3.2 [...] Cholesterol, Total 253 mg/dL (Abnormal) Range: 100-199 55-Gmb-185204:13 Metabolic Panel, Comprehensive Comments: PATIENT WAS FASTINGPERFORMED BY: [facility]6370 [facility] [id number] (43951) ALT (SGPT) 25 [iU]/L (Normal) Range: 0-32 [...] Glucose, Serum 92 mg/dL (Normal) Range: 65-99 87-Npw-322983:58 URINE EPIFANIO CULTURE-RONALD COL Comments: Forward to Dr Eduardo, Urology, [place], [place]; PATIENT NOT FASTINGPERFORMED BY: [employer] [place] [id number] Information: SRC:URC [id number] COUNT (38181) Result 1 MUG (Normal) Comments: Mixed urogenital flora5,000 Colonies/mL Urine Culture,Comprehensive Final report (Normal) 46-Ckd-065973:55 Urinalysis, Office (64341) UA - GLUCOSE Negative (Normal) UA - BILIRUBIN Negative (Normal) UA - KETONES Negative mg/dL (Normal) UA - SPECIFIC GRAVITY 1.025 (Normal) UA - BLOOD Hemolyzed Trace (Normal) UA - PH 6 (Abnormal) UA - PROTEIN Negative mg/dL (Normal) URINE UROBILINGN RONALD TIMED Normal mg/dL (Normal) UA - NITRITE Negative (Normal) UA - LEUKOCYTE ESTERASE Negative (Normal) 6-Ohj-375935:01 Vitamin D Hydroxy (06177) Comments: PATIENT NOT FASTINGPERFORMED BY: [employer]6370 [facility] LLCAt[facility] Health [facility] [id number] Vitamin D, 25-Hydroxy 33.2 ng/mL (Normal) Range: 30.0-100.0 Comments: Vitamin D deficiency has been defined by the [place] ofMedicine and an Endocrine Society practice guideline as alevel of serum 25-OH vitamin D less than 20 ng/mL (1,2).The Endocrine Society went on to further define vitamin Dinsufficiency as a level between 21 and 29 ng/mL (2).1. IOM ([place] of Medicine). 2010. Dietary reference intakes for calcium and D. [place]: The National Academies Press.2. Mica MF, Dami NC, Sheri CHAVEZ, et al. Evaluation, treatment, and prevention of vitamin D deficiency: an Endocrine Society clinical practice guideline. JCEM. 2010; 96(7):1911-30. :01 SPEP (28537) Comments: PATIENT NOT FASTINGPERFORMED BY: [employer] Odoenb8731 [facility] CorporationAt[facility] [id number] Information: [id number] Please note: SPRCS (Normal) Comments: Protein electrophoresis scan will follow via computer, mail, orcourier delivery. A/G Ratio 1.3 (Normal) Range: 0.7-2.0 Globulin, Total 3.2 g/dL (Normal) Range: 2.0-4.5 M-Faisal Not Observed g/dL (Normal) Gamma Globulin 1.1 g/dL (Normal) Range: 0.5-1.6 Beta Globulin 1.1 g/dL (Normal) Range: 0.6-1.3 Ehtvr-7-Cbjymarj 0.8 g/dL (Normal) Range: 0.4-1.2 Btolj-2-Xezdehmd 0.3 g/dL (Normal) Range: 0.1-0.4 Albumin 4.2 g/dL (Normal) Range: 3.2-5.6 Protein, Total, Serum 7.4 g/dL (Normal) Range: 6.0-8.5 :01 TSH (44710) Comments: PATIENT NOT FASTINGPERFORMED BY: [employer] Uxmsqk6860 [address] OSS[place]IXin [place] [id number] TSH 0.956 {uIU/mL} (Normal) Range: 0.450-4.500 :01 PARATHORMONE (20069) Comments: PATIENT NOT FASTINGPERFORMED BY: [facility] Znucdr6934 [facility] SpringfieldChope Groupin [place] [id number] PTH, Intact 53 pg/mL (Normal) Range: 15-65 :01 SED RATE ERYTHROCYTE (93082) Comments: PATIENT NOT FASTINGPERFORMED BY: [facility]6370 [facility] [id number] Sedimentation Rate-Westergren 6 mm/h (Normal) Range: 0-40 :01 ALKALINE PHOSPHATASE (34194) Comments: PATIENT NOT FASTINGPERFORMED BY: [facility]6370 [facility] [id number] Alkaline Phosphatase, S 75 [iU]/L (Normal) Range: 39-117 :01 C-REACTIVE PROTEIN (63549) Comments: PATIENT NOT FASTINGPERFORMED BY: [facility]6370 [facility] [id number] C-Reactive Protein, Quant 1.5 mg/L (Normal) Range: 0.0-4.9 :10 Urinalysis, Complete Comments: Order Date: 07/26/15How was Urine Obtained? CLEAN CATCHTest performed at:[facility] Hfdcsllfbj9055 [facility] [place] [address] MUCUS, URINE 0 SEEN {/hpf} [...] (BMP) Comments: Test performed at:[facility] Tdfyzipjkv8284 [facility] [place] [address] GAP 6 (Normal) Range: 5-15 [...] Comments: Please note revised CREATININE reference range kurctnkcs12/22/2015. BUN 24 mg/dL (Abnormal) Range: 7-18 GLU 91 mg/dL (Normal) Range: 70-110 75-Xsu-291666:26 CBC W/Diff, Automated Comments: Test performed at:[facility] [address], [place] [address] Absolute Lymph 1.55 {X10_3/ul} (Normal) Range: 0.83-4.51 [...] Panel (7) Comments: PATIENT WAS FASTINGPERFORMED BY: ShippableOcean Medical CenterOqfqzt1144 [facility] [id number] ALT (SGPT) 17 [iU]/L (Normal) Range: 0-32 AST (SGOT) 24 [iU]/L (Normal) Range: 0-40 Alkaline Phosphatase, S 63 [iU]/L (Normal) Range: 39-117 Bilirubin, Direct 0.16 mg/dL (Normal) Range: 0.00-0.40 Bilirubin, Total 0.7 mg/dL (Normal) Range: 0.0-1.2 Albumin, Serum 4.6 g/dL (Normal) Range: 3.6-4.8 Protein, Total, Serum 7.2 g/dL (Normal) Range: 6.0-8.5 :19 Lipid Panel With LDL/HDL Comments: PATIENT WAS FASTINGPERFORMED BY: ShippableOcean Medical CenterJmdytl1623 [facility] [id number] Information: [id number] Ratio LDL/HDL Ratio 2.6 {ratio_units} (Normal) Range: [...] Cholesterol, Total 257 mg/dL (Abnormal) Range: 100-199 91-Whn-392350:14 Culture, Urine Comments: Test performed at:[facility] [address] [place] [address] CUUR See Note (Normal) Comments: [...] formulary drugs may be ordered and/or dispensed. 15-Dvx-477953:14 Urinalysis, Routine (Dipstick) Comments: How was Urine Obtained? CLEAN CATCHTest performed at:[facility] [address] [place] [address] LEUK ESTERASE 100 /ul (Abnormal) OCCULT BLOOD-UR 10 /ul (Abnormal) NITRITE UR Positive (Abnormal) UROBILI Normal mg/dL (Normal) PROT DIPSTX Negative mg/dL (Normal) pH UR 7.0 (Normal) Range: 5.0 - 8.0 SP.GR. DIPSTX 1.010 (Normal) Range: 1.002-1.030 KETONE UR Negative mg/dL (Normal) BILIRUBIN URINE Negative mg/dL (Normal) GLUCOSE, UR Normal mg/dL (Normal) CLARITY Sl. Cloudy (Normal) COLOR Yellow (Normal) 05-Nbw-105121:16 URINE EPIFANIO CULTURE (RONALD Comments: PATIENT NOT FASTINGPERFORMED BY: LabCoOcean Medical CenterAgxsug9291 [facility] [id number] Information: SRC:UR [id number] COL COUNT) (79519) Result 1 CNSNSS (Abnormal) Comments: Coagulase negative [...] S Urine Final report Culture,Comprehens (Abnormal) tito 0-Jgs-639730:25 Culture, Urine Comments: Test performed at:[facility] [address] [place], [place] [address] CUUR See Note (Normal) Comments: Order Date: [...] non-formulary drugs may be ordered and/or dispensed. 06-Yam-13837:24 MICROALBUMIN: CREATININE RATIO Comments: PATIENT WAS FASTINGPERFORMED BY: [facility] Bbruob8653 [facility] [id number] (20071) AND (51499) Microalb/Creat Ratio 1.3 {mg/g_creat} (Normal) Range: 0.0-30.0 Microalbumin, Urine 1.5 ug/mL (Normal) Range: 0.0-17.0 Creatinine, Urine 118.7 mg/dL (Normal) Range: 15.0-278.0 :24 METABOLIC PANEL, COMPREHENSIVE Comments: PATIENT WAS FASTINGPERFORMED BY: [facility] NetworksAt[facility] [id number] (08863) ALT (SGPT) 22 [iU]/L (Normal) Range: 0-32 [...] mg/dL (Normal) Range: 65-99 :24 LIPID PANEL (13766) Comments: PATIENT WAS FASTINGPERFORMED BY: [facility] Networksh[facility] [place] [id number] LDL/HDL Ratio 2.6 {ratio_units} (Normal) Range: 0.0-3.2 Comment: LDLCOM (Normal) Comments: Possible Familial Hypercholesterolemia. FH should be suspected whenfasting LDL cholesterol is above 189 mg/dL or non-HDL cholesterolis above 219 mg/dL. A family history of high cholesterol and heartdise ase in 1st degree relatives should be collected. J Clin Ouqrjer4815;5:133-140 LDL Cholesterol Calc 206 mg/dL (Abnormal) Range: 0-99 VLDL Cholesterol Marysol 16 mg/dL (Normal) Range: 5-40 HDL Cholesterol 79 mg/dL (Normal) Comments: According to ATP-III Guidelines, HDL-C >59 mg/dL is considered anegative risk factor for CHD. Triglycerides 82 mg/dL (Normal) Range: 0-149 Cholesterol, Total 301 mg/dL (Abnormal) Range: 100-199 56-Goy-61591:24 CBC WITH MANUAL DIFF Comments: PATIENT WAS FASTINGPERFORMED BY: [facility] Qhkeil4639 [facility] [id number] Information: [id number] (58066) Immature Grans (Abs) 0.0 {x10E3/uL} (Normal) Range: [...] 3.77-5.28 WBC 4.8 {x10E3/uL} (Normal) Range: 3.4-10.8 0-Dfa-528752:31 BILAT SCRN DIGITAL & CAD Radiology Report [...] Amor M.D.January 31, 2013 at 1:16:07 PM [id number] Signed GP/GP If you are the referring physician and wou ld like to consult with theradiologist who provided this interpretation, please contact Yan Enriquez at [phone]. If this radiologist is unavailable, youwill be directed to another radiol ogist to assist. If you are a patient with a question regarding this report, pleasecontactyour referring physician directly. Professional Interpretation Provided By: Fatimah, Phone ,Fa x [phone] These documents contain legally protected and confidential [...] 01/31/13 1326 Sign by: Tylor Amor MD 0-Wca-752754:31 DEXA BONE DENSITY STUDY (HP) Radiology Report [...] is considered osteopenic, as outlined above, according toWlegacy healthHealth Organization ([facility] O) criteria. Fracture risk is [...] Amor M.D.January 31, 2013 at 1:13:05 PM [id number] Signed GP/GP If you are the referring ph ysician and would like to consult with theradiologist who provided this interpretation, please contact Yan Enriquez at [phone]. If this radiologist is unavailable, youwill be directed to another radiologist to assist. If you are a patient with a question regarding this report, pleasecontactyour referring physician directly. Professional Interpretation Provided By: B-Obvious, Phone , These documents contain legally protected [...] documents. Dictated on 01/31/13 1235 by Mt COLLINS,ShaggyrieleTranscribed on 01/31/13 1317 by ITS IMPORTSign by Mt COLLINS,Tylor on 01/31/13 1318 Sign by: Tylor Amor MD 46-Tah-70338:51 LIPID PANEL (78306) Comments: PATIENT WAS FASTINGPERFORMED BY: [facility]ityJohn [facility]. [facility]6370 [facility] [id number] Information: [id number] LDL Cholesterol Calc 162 mg/dL (Abnormal) Range: 0-99 LDL/HDL Ratio 2.7 {ratio_units} (Normal) Range: 0.0-3.2 VLDL Cholesterol Marysol 24 mg/dL (Normal) Range: 5-40 HDL Cholesterol 61 mg/dL (Normal) Comments: According to ATP-III Guidelines, HDL-C >59 mg/dL is considered anegative risk factor for CHD. Triglycerides 122 mg/dL (Normal) Range: 0-149 Cholesterol, Total 247 mg/dL (Abnormal) Range: 100-199 92-Zyn-756628:18 Microscopic Examination Comments: PATIENT WAS FASTINGPERFORMED BY: [facility]6370 [facility] [id number] Bacteria None seen (Normal) Epithelial Cells (non renal) 0-10 {/hpf} (Normal) Range: 0 - 10 RBC 0-3 {/hpf} (Normal) Range: 0 - 3 WBC 0-5 {/hpf} (Normal) Range: 0 - 5 35-Use-225807:18 METABOLIC PANEL, COMPREHENSIVE Comments: PATIENT WAS FASTINGPERFORMED BY: [facility]John [facility]. [facility]6370 [facility] [id number] (51875) ALT (SGPT) 16 [iU]/L (Normal) Range: 0-40 [...] Glucose, Serum 88 mg/dL (Normal) Range: 65-99 :18 URINALYSIS, W/ MICRO (52063) Comments: PATIENT WAS FASTINGPERFORMED BY: [facility]6370 [facility] [id number] Microscopic Examination See below: (Normal) Microscopic Examination MICRON (Normal) Comments: Microscopic follows if indicated. Nitrite, Urine Negative (Normal) Urobilinogen,Semi-Qn 0.2 mg/dL (Normal) Range: 0.0-1.9 Bilirubin Negative (Normal) Occult Blood Negative (Normal) Ketones Negative (Normal) Glucose Negative (Normal) Protein Negative (Normal) WBC Esterase Negative (Normal) Appearance Clear (Normal) Urine-Color Yellow (Normal) pH 5.5 (Normal) Range: 5.0-7.5 Specific Thaxton 1.018 (Normal) Range: 1.005-1.030 51-Ftw-282475:18 LIPID PANEL (89387) Comments: PATIENT WAS FASTINGPERFORMED BY: LabJohn [facility]. [facility]6370 [facility] [id number] LDL/HDL Ratio 2.8 {ratio_units} (Normal) Range: 0.0-3.2 [...] MANUAL DIFF Comments: PATIENT WAS FASTINGPERFORMED BY: LabJohn [facility]. [facility]6370 [facility] [id number] Information: [id number] (64364) Immature Grans (Abs) 0.0 {x10E3/uL} (Normal) Range: [...] 3.77-5.28 WBC 4.4 {x10E3/uL} (Normal) Range: 4.0-10.5 19-Jkl-74499:52 Lipid Panel (69113) Comments: PATIENT WAS FASTINGPERFORMED BY: LabCoOcean Medical CenterAmqght0102 [facility] [id number] Information: [id number] LDL/HDL Ratio 2.2 {ratio_units} (Normal) Range: 0.0-3.2 LDL Cholesterol Calc 146 mg/dL (Abnormal) Range: 0-99 VLDL Cholesterol Marysol 23 mg/dL (Normal) Range: 5-40 HDL Cholesterol 67 mg/dL (Normal) Comments: According to ATP-III Guidelines, HDL-C >59 mg/dL is considered anegative risk factor for CHD. Triglycerides 115 mg/dL (Normal) Range: 0-149 Cholesterol, Total 236 mg/dL (Abnormal) Range: 100-199 [id number] BILAT SCRN DIGITAL & CAD Radiology Report [...] radiologist regarding this report, please call our [id number] line @ [employer] on 01/18/12 1254 by Yordy Amor MDranscribed on 01/18/121456 by ITS IMPORTSign by Tylor Silverio MD on 01/18/121457 Sign by: Tylor Amor MD [id number] POTASSIUM SERUM ([id number]) Comments: PATIENT NOT FASTINGPERFORMED BY: [facility] [id number] [facility] [id number] Information: [id number] Potassium, Serum 5.2 mmol/L (Normal) Range: 3.5-5.2 24-Anh-35015:15 CBCD,SMEAR DIFF RED CELL MORPH SeeNote {NORMAL} [...] Serum 9.8 mg/dL (Normal) Comments: PERFORMED BY: [employer] [facility] [id number] Range: 8.6-10.2 : Phosphorus, Serum 3.6 mg/dL (Normal) Comments: PERFORMED BY: [employer] [facility] [id number] Range: 2.5-4.5 :59 Protein Electro, Random Urine Comments: PERFORMED BY: A vida é feita de [place] Vxssgq3636 [facility] [id number] Please note: SPRCS (Normal) Comments: Protein electrophoresis scan will follow via computer, mail, orcourier delivery. Gamma Globulin, U 19.1 % (Normal) M-Faisal, % Not Observed % (Normal) Beta Globulin, U 32.4 % (Normal) Qjggg-7-Wclqtcad, U 20.5 % (Normal) Iajxv-3-Cbwqpxme, U 4.1 % (Normal) Albumin, U 23.9 % (Normal) Protein,Total,Urine 6.5 mg/dL (Normal) Range: 0.0-15.0 11-Oub-115500:59 Protein Electro.,S Comments: PERFORMED BY: ROBERT Shippable [employer] [facility] [id number] Please note: SPRCS (Normal) Comments: Protein electrophoresis scan will follow via computer, mail, orcourier delivery. A/G Ratio 1.2 (Normal) Range: 0.7-2.0 Globulin, Total 3.2 g/dL (Normal) Range: 2.0-4.5 M-Faisal Not Observed g/dL (Normal) Zaqnz-3-Yghbzsjh 0.2 g/dL (Normal) Range: 0.1-0.4 Knkkg-0-Oaeyepyx 0.8 g/dL (Normal) Range: 0.4-1.2 Beta Globulin 1.1 g/dL (Normal) Range: 0.6-1.3 Gamma Globulin 1.1 g/dL (Normal) Range: 0.5-1.6 Albumin 3.9 g/dL (Normal) Range: 3.2-5.6 Protein, Total, Serum 7.1 g/dL (Normal) Range: 6.0-8.5 PTH, Intact 27 pg/mL (Normal) Comments: PERFORMED BY: [employer] [facility] [id number] 5:59 Range: 15-65 Sedimentation 5 mm/h (Normal) Comments: PERFORMED BY: [employer] [facility] [id number] 5:59 Rate-Westergren Range: 0-30 TSH 1.050 {uIU/mL} Comments: PERFORMED BY: [employer] [facility] [id number] 5:59 (Normal) Range: 0.450-4.500 Vitamin D, 25-Hydroxy 39.3 ng/mL Comments: PERFORMED BY: [employer]able [employer] [facility] [id number] 5:59 (Normal) Range: 32.0-100.0 Comments: Recent studies consider the lower limit of 32.0 ng/mL to be athreshold for optimal health.Shultz DELANO. J Nutr. 2004;135(2):317-22. 4-Nya-072923:55 BILAT SCRN DIGITAL & CAD Radiology Report [...] [facility] 30 days. Approximately 10% of breast cancers are not detected by mammography. Anormal mammogram should not delay biopsy of a clinically suspiciousabnormality. Dictated on 12/30/10 1348 Yordy Ortizranscribed on 01/05/11 1047 by ITS IMPORTSign by Tylor Amor on 01/05/11 1048 Sign by: Tylor Amor 4-Dvn-492583:54 DEXA BONE DENSITY STUDY (HP) Radiology Report See Note (Normal) Comments: CLINICAL:Female, 60 years old. The patient is postmenopausal. EXAMINATION:DUAL ENERGY X-RAY ABSORPTIOMETRY / DEXA. TECHNIQUE:Bone Mineral Density (BMD) measurements of lumbar spine and bila teralhipswer e obtained using a [employer] scanner.. COMPARISON:Comparison is made with prior study [...] on 12/30/10 1407 Sign by: Tylor Amor 2-Mwe-053070:03 METABOLIC PANEL, COMPREHENSIVE Comments: PATIENT WAS FASTINGPERFORMED BY: [facility]Co[facility] CenterThbwsm6682 [facility] [id number] ([id number]) ALT (SGPT) 17 [iU]/L (Normal) Range: 0-40 [...] Glucose, Serum 97 mg/dL (Normal) Range: 65-99 0-Dfq-742202:03 LIPID PANEL (97069) Comments: PATIENT WAS FASTINGPERFORMED BY: [facility]Co[facility] CenterSadxhu3615 [facility] [id number] LDL Cholesterol Calc 176 mg/dL (Abnormal) Range: 0-99 LDL/HDL Ratio 2.7 {ratio_units} (Normal) Range: 0.0-3.2 VLDL Cholesterol Marysol 31 mg/dL (Normal) Range: 5-40 Cholesterol, Total 272 mg/dL (Abnormal) Range: 100-199 HDL Cholesterol 65 mg/dL (Normal) Comments: According to ATP-III Guidelines, HDL-C >59 mg/dL is considered anegative risk factor for CHD. Triglycerides 157 mg/dL (Abnormal) Range: 0-149 7-Cve-162558:03 CBC WITH MANUAL DIFF Comments: PATIENT WAS FASTINGPERFORMED BY: [facility]Co[facility] CenterDjqdme0617 [facility] [id number] Information: [id number] (00984) Baso (Absolute) 0.1 {x10E3/uL} (Normal) Range: 0.0-0.2 [...] PANEL, COMPREHENSIVE Comments: PATIENT WAS FASTINGPERFORMED BY: [facility]6370 [facility] [id number] (70931) ALT (SGPT) 23 [iU]/L (Normal) Range: 0-40 [...] mg/dL (Normal) Range: 65-99 :38 LIPID PANEL (49844) Comments: PATIENT WAS FASTINGPERFORMED BY: [employer]6370 [facility] [id number] LDL Cholesterol Calc 143 mg/dL (Abnormal) Range: [...] three months (approximately); PATIENT WAS FASTINGPERFORMED BY: [employer]6370 [facility] [id number] Information: ADD [id number] AND DRAW FEE 99 7984 (91946) Baso (Absolute) 0.0 {x10E3/uL} (Normal) Range: 0.0-0.2 [...] 3.80-5.10 WBC 4.4 {x10E3/uL} (Normal) Range: 4.0-10.5 23-Vzj-433195:03 BMP BUN/CRE 24.4 {RATIO} (Abnormal) Range: 10-20 [...] (Normal) GLU 91 mg/dL (Normal) Range: 70-110 85-Ada-85367:00 EPIFANIO CULTURE-OTHER (16070) Comments: PATIENT NOT FASTINGPERFORMED BY: [facility]Co[facility] CenterLugvbd4822 [facility] [id number] Information: SRC: THROAT Result 1 RRF (Normal) Comments: Routine respiratory michelle Upper Respiratory Culture Final report (Normal) 46-Juh-910500:43 Rapid Strep Test, Office (72527) Rapid Strep Test, Office Negative (Normal) 30-Fkk-04967:35 CBCD,SMEAR DIFF CELLS COUNTED 100 (Normal) EOS [...] Report See Note (Normal) Comments: Exam Number: [id number] CLINICAL:Syncope and CT BRAIN WITH AND WITHOUT [...] There is no rmal enhancement of the [place], without a demonstrated aneurysm. Normal [...] GLU 5 HR GLU GTT-5 HOUR from 0922:O54319S. 37 Range: 70-110 : GLU GTT-4 HOUR <TEST NOT PERFORMED> Comments: 5HR GTT GLU 4 HR GLU GTT-4 HOUR from 921:F24504D. 45 mg/dL (Normal) Range: 70-110 : GLU GTT-3 HOUR 78 mg/dL (Normal) Comments: 5HR GTT GLU 3 HR GLU GTT-3 HOUR from 921:C35352R. 40 Range: 70-110 : GLU GTT-2 HOUR 134 mg/dL (Abnormal) Comments: 5HR GTT GLU 2 HR GLU GTT-2 HOUR from 921:T19043F. 40 Range: 70-120 :4 GLU GTT-1 HOUR 155 mg/dL (Normal) Comments: 5HR GTT GLU 1 HR GLU GTT-1 HOUR from 921:C32162H. 0 Range: 120-170 :0 GLU GTT-30 min. 180 mg/dL (Abnormal) Comments: 5HR GTT GLU 1/2 HR GLU GTT-30 min. from 921:C33866C. 8 Range: 110-170 Comments: SPECIMEN GROSSLY HEMOLYZED :3 GLU GTT-FASTING 104 mg/dL (Normal) Comments: 5HR GTT FASTING GLU GTT-FASTING from 921:Q27042M. 5 Range: 70-110 Comments: GLUCOSE TOLERANCE TEST Reference Interval Non- Adults Fasting 70 - 110 30 minutes 110 - 170 1 hour 120 - 170 2 hour 70 - 120 3 hour 70 - 110 4 hour 70 - 110 5 hour 70 - 110 :3 BEDSIDE GLU 97 mg/dL (Normal) Range: 70-110 3 Comments: Policy and Physicians Orders followed 71-Dhb-162046:47 Urinalysis, Office (64874) UA - BILIRUBIN Small (Normal) UA - [...] Report See Note (Normal) Comments: Exam Number: [id number] MAMMOGRAM, UNILATERAL RIGHT DIAGNOSTIC DIGITAL AND CAD [...] werealso e xamined with computer-aided detection software ([employer], [email or web address], [employer].). Reported By: AUBRIE CROW M.D. 91-Bea-827071:19 ABDOMEN W/WO IV CONTRAST Radiology Report See Note (Normal) Comments: Exam Number: [id number] CLINICAL:Liver lesion CT ABDOMEN WITH AND WITHOUT [...] sponge kidneys. Reported By: GREGG GLEZ M.D. 49-Hel-07537:28 SERUM CRE & GFR Comments: CALL RESULTS TO [id number] CREAT,SERUM 0.8 mg/dL (Normal) Range: 0.6-1.0 EST GFR 78 mL/min (Normal) EST GFR - AA 95 mL/min (Normal) :29 CERV SPINE,MIN 4 VIEWS Radiology Report See Note (Normal) Comments: Exam Number: [id number] CERVICAL SPINE SERIES, MULTIPLE VIEWS INCLUDING BILATERAL [...] spine series. Reported By: EMMA JETT M.D. 5-Rjb-030435:16 [facility] DIAG DIGITAL & CAD Radiology Report See Note (Normal) Comments: Exam Number: [id number] MAMMOGRAM, UNILATERAL RIGHT DIAGNOSTIC DIGITAL AND CAD [...] mammograms werealso examined with computer-aided detection software ([employer].). Reported By: AUBRIE CROW M.D. 47-Yls-198333:46 [facility] Rad[facility] Report See Note (Normal) Comments: Exam Number: [id number] BILATERAL SCREENING MAMMOGRAPHY HISTORYRoutine screening. COMPARISONComparison is made to prior studies of March 16, 2007, March 02, 2007,and February 15, 2006. TECHNIQUER patrick MLO a nd CC views were acquired. FINDINGSThe breast parenchyma is heterogeneously dense. A benign intramammarylymph node is shown in the left breast. There has been intervalvisualization of a linear groupi ng of punctate calcifications in theanterior right breast for which further evaluation with spotmagnification views would be required. Elsewhere no suspiciouscluster of calcification, area of chief enterprise architect ural distortion, orthree-dimensional spiculated masses. IMPRESSION1. [...] mammogramswere also examined with computer- aided detection software(C[employer].). Reported By: CASSIE QUINTEROS M.D. 54-Klb-550304:17 LIPID CHOL 223 mg/dL (Abnormal) Comments: <200 [...] mg/dL VLDL 19 mg/dL (Normal) Range: 5-40 02-Prv-765630:17 LIVER ALB 3.5 g/dL (Normal) Range: 3.4-5.0 [...] Report See Note (Normal) Comments: Exam Number: [id number] MAMMOGRAM, LEFT UNILATERAL DIAGNOSTIC DIGITAL AND CAD [...] mammograms werealso examined with computer-aided detection software (Data[employer], [email or web address], [employer].). Reported By: AUBRIE CROW M.D. :40 MAMM, BILAT SCRN DIGITAL & CAD Radiology Report See Note (Normal) Comments: Exam Number: [id number] MAMMOGRAM, BILATERAL SCREENING DIGITAL & CAD Full [...] mammograms werealso examined with computer-aided detection software ([employer], [email or web address], [employer].). Reported By: AUBRIE CROW M.D. :58 CULTURE, [...] $$$ >=256 R TRIMETHOPRIM/SULFAMETHOXAZ $$ <=10 S 94-Fjd-263436:58 ROUTINE UA BILIRUBIN URINE SeeNote (Normal) Comments: [...] 0.2 EU/dl (Normal) Range: 0.2 - 1.0 31-Cfv-722973:10 CBC HCT 41.3 % (Normal) Range: 37-47 [...] T PROT 7.6 g/dL (Normal) Range: 6.4-8.2 54-Ndu-243357:10 PFLIP CHOL 231 mg/dL (Abnormal) Comments: <200 [...] mg/dL VLDL 20 mg/dL (Normal) Range: 5-40 63-Kfs-396021:10 ROUTINE UA BILIRUBIN URINE SeeNote (Normal) Comments: [...] Plan of Care Name Dates Details Instructions Fever : Follow up if no improvement or if symptoms worsen Indication: Fever Nonsmoker : Eprescribed prescriptions (G8553) Indication: Nonsmoker Nonsmoker : Follow up if no improvement [...] Flags Indication: Low back pain Planned Observations URINE EPIFANIO CULTURE (RONALD COL COUNT) (65357)Indication: Urinary frequency On: 8-Ljy-353502:36 Request IRON (81890)Indication: Anemia On: 14-Den-692669:06 Request CBC, Platelets & Auto Diff (79763)Indication: Anemia On: 78-Nnt-462199:05 Request MICROALBUMIN: CREATININE RATIO (17559) AND (49996)Indication: Benign essential hypertension On: :03 Request Comments: Jul 2017 URINALYSIS (79903)Indication: Benign essential hypertension On: :03 Request Comments: Jul 2017 TSH (79407)Indication: Benign essential hypertension On: :03 Request Comments: Jul 2017 CBC, Platelets & Auto Diff (67979)Indication: Benign essential hypertension On: :03 Request Comments: Jul 2017 Metabolic Panel, Comprehensive (73812)Indication: Benign essential hypertension On: :02 Request Comments: Jul 2017 URINALYSIS, W/ MICRO (36568)Indication: Benign essential hypertension On: :22 Request METABOLIC PANEL, COMPREHENSIVE (72644)Indication: Benign essential hypertension On: :22 Request LIPID PANEL (02511)Indication: Benign essential hypertension On: :22 Request CBC with auto diff (44865)Indication: Benign essential hypertension On: :22 Request Blood Glucose , Office (71291)Indication: SYNCOPE, NOS On: 96-Fwl-099095:23 Request LIPID PANEL (01999)Indication: Hyperlipidemia On: 41-Eib-295291:37 Request HEPATIC FUNCTION PANEL (14388)Indication: Hyperlipidemia On: 10-Ikr-421486:37 Request CALCIFIDIOL (59556) VIT D 25Indication: Osteoporosis On: :50 Request CALCIUM SERUM (88646)Indication: Osteoporosis On: :48 Request TSH (37051)Indication: Osteoporosis On: :48 Request UPEP (07563)Indication: Osteoporosis On: :48 Request SPEP (10983)Indication: Osteoporosis On: :47 Request SED RATE ERYTHROCYTE (80291)Indication: Osteoporosis On: :47 Request PHOSPHORUS (61174)Indication: Osteoporosis On: :47 Request PARATHORMONE (94417)Indication: Osteoporosis On: :47 Request URINALYSIS, W/ MICRO (43120)Indication: Benign essential hypertension On: 89-Byr-673057:00 Request CBC with manual diff (01573)Indication: Benign essential hypertension On: :40 Request Metabolic Panel, Comprehensive (29661)Indication: Hyperkalemia On: :40 Request Lipid Panel (86679)Indication: Hypercholesterolemia On: :40 Request METABOLIC PANEL, COMPREHENSIVE (32602)Indication: Hypercholesterolemia On: :16 Request LIPID PANEL (97670)Indication: Hypercholesterolemia On: 66-Qnq-459734:16 Request Comments: in three months (approximately) Metabolic Panel, Basic (52997)Indication: Benign essential hypertension On: 03-Qrm-152144:15 Request Comments: 2 weeks GLUCOSE TOLERANCE TEST (GTT) 5 hour (60916)Indication: SYNCOPE, NOS On: 86-Itl-877072:49 Request Blood Glucose , Office (88587)Indication: SYNCOPE, NOS On: 22-Eln-084018:47 Request Comments: 92 URINALYSIS W/O MICRO (08664)Indication: Benign essential hypertension On: 43-Ahg-773224:35 Request METABOLIC PANEL, COMPREHENSIVE (64420)Indication: Benign essential hypertension On: 95-Pjm-284959:35 Request LIPID PANEL (58617)Indication: Benign essential hypertension On: 82-Hgg-619237:35 Request CBC WITH MANUAL DIFF (10042)Indication: Benign essential hypertension On: 78-Mfz-798088:34 Request MICROALBUMIN: CREATININE RATIO (58324) AND (84047)Indication: Benign essential hypertension On: 48-Bff-972635:08 Request METABOLIC PANEL, COMPREHENSIVE (83177)Indication: Benign essential hypertension On: 21-Gqr-061545:08 Request LIPID PANEL (29705)Indication: Benign essential hypertension On: 04-Rbm-479119:08 Request CBC WITH MANUAL DIFF (21240)Indication: Benign essential hypertension On: 44-Lcf-156208:08 Request CBC (Auto) (21083)Indication: Hypercholesterolemia On: :47 Request Metabolic Panel, Comprehensive (10956)Indication: Hypercholesterolemia On: :47 Request Lipid Panel (32672)Indication: Hypercholesterolemia On: 1-Qtp-418975:46 Request Comments: in three months (approximately) HEPATIC FUNCTION PANEL (47413)Indication: Hypercholesterolemia On: :21 Request LIPID PANEL (57088)Indication: Hypercholesterolemia On: 62-Ved-884845:21 Request Comments: in six months Planned Encounters Medical; 6 Month FU - On: 15-Apr-2019 16:15 [facility] Peggy Lott CNP, CNP, Mary E Planned Procedures SCREENING DIGITAL TOMOSYNTHESIS OF On: 15-Oct-2018 Intent BREAST (93449)By: Oren ASH ThuyLes Lott CNP Thuy DRAIN/INJECT, JOINT/BURSA (91579)By: On: 15-Oct-2018 Intent Oren ASH ThuyPeggy Horta CNP Radiology - Shoulder - RightBy: On: 10-Sep-2018 Intent Oren ASH ThuyLes Lott CNP Thuy Toradol Injection, 30 mg (J1885)By: On: 27-Feb-2018 Intent Oren ASH ThuyLes Lott CNP Thuy Toradol Injection, 30 mg (J1885)By: On: 19-Feb-2018 Intent Oren ASH ThuyLes Lott CNP Thuy Radiology - Cervical SpineBy: Ciesa On: 19-Feb-2018 Intent MIHIR ThuyLes Lott CNP Thuy Wax Currettes (95239)By: Jorgito QA TEST ANALYST, On: 26-Jan-2018 Intent Reyna Ear Irrigation (88149)By: Slarb On: 26-Jan-2018 Intent QA TEST ANALYST, Reyna PARATHYROID SCAN WITH MIBI AND I-123 On: 14-Jan-2018 Intent (36593)By: Oren ASH Peggy Lott CNP, Peggy Saldana Toradol Injection, 30 mg (J1885)By: On: 12-Jan-2018 Intent Oren ASH, Peggy Lott CNP, Thuy SCREENING DIGITAL TOMOSYNTHESIS OF On: 06-Sep-2017 Intent BREAST (82274)By: Oren ASH, Peggy Garciaa MIHIR, Thuy DEXA SCAN AXIAL SKELETON (49738)By: On: 06-Sep-2017 Intent Oren ASH, Peggy Lott CNP, Thuy Holter Monitor 24 hrsBy: Radhastanley ASH, On: 23-Jun-2017 Intent Peggy Lott CNP, Thuy ELECTROCARDIOGRAM, COMPLETE (ECG) On: 23-Jun-2017 Intent (48645)By: Oren ASH Peggy Lott CNP, Thuy ELECTROCARDIOGRAM, COMPLETE (ECG) On: 10-Aug-2016 Intent (98522)By: Oren ASH, Peggy Lott CNP, Thuy ELECTROCARDIOGRAM, COMPLETE (ECG) On: 20-Jul-2016 Intent (88290)By: Peggy Lott CNP, CNP, Thuy MAMMOGRAM BREAST BILATERAL SCREENING On: 20-Jul-2016 Intent DIGITAL (35457)By: Oren ASH Peggy Lott CNP, Peggy Saldana INJECTION, PROLIA (J0897)By: Iris On: 16-Oct-2015 Intent Silvana COLLINS Comments: Lot:[id number]:05/14Dose:60mg/mlRoute:sub qSite:l armGiven By:JKMVIS signed DEXA SCAN AXIAL SKELETON (76864)By: On: 08-Jun-2015 Intent Silvana Simmons MD MAMMOGRAM, SCREENING, BOTH BREAST On: 08-Jun-2015 Intent (51730)By: Silvana Simmons MD Echo CompleteBy: Silvana Simmons MD On: 10-Nov-2014 Intent Holter Monitor 24 hrsBy: Iris COLLINS, On: 10-Nov-2014 Intent Silvana Holder Carotid DopplerBy: Silvana Simmons MD On: 10-Nov-2014 Intent M FLU VAC, SPLIT, >3 YEARS, INTRAMUSC On: 26-Sep-2013 Intent (64377)By: Silvana Simmons MD Comments: Lot #:[id number] date:05.10Amount given:0.5mlRoute: IMSite given:L DltdGiven by: Paige ANAYA and ABN signed IMMUNIZ ADMNIN, 1 VAC, SNGL/COMBO On: 26-Sep-2013 Intent (46606)By: Silvana Simmons MD EKG (37296)By: PAIGE Rees On: 26-Sep-2013 Intent Eprescribed prescriptions (G8553)By: On: 12-Feb-2013 Intent Radha Corrales LPN Ear Irrigation (76885)By: Lucio On: 18-Jan-2013 Intent Jayde JONES Comments: Ear Irrigation performed on: r earAmount/color removed cerumen:brownish moderate amountOUtcome:pt tolerated Used wax curettes Wax CurettesBy: Jayde Valdes LPN On: 18-Jan-2013 Intent Phenergan Injection, up to 50 mg On: 15-Jan-2013 Intent (J2550)By: Oren ASH, Peggy Lott Comments: give 25mg IMLot #[id number]-left hipDose-25mggiven by: Claudia Browne LPN CNP, Mary E IMMUNIZ ADMNIN, 1 VAC, SNGL/COMBO On: 14-Aug-2012 Intent (26186)By: Silvana Simmons MD FLU VAC, SPLIT, >3 YEARS, INTRAMUSC On: 14-Aug-2012 Intent (78747)By: Silvana Simmons MD DXA, BONE DENSITY, AXIAL SKELETON On: 14-Aug-2012 Intent (04702)By: Silvana Simmons MD MAMMOGRAM, SCREENING, BOTH BREASTS On: 14-Aug-2012 Intent (86209)By: Silvana Simmons MD Breast Screening - BilateralBy: On: 09-Jan-2012 Intent Silvana Simmons MD EKG (16070)By: Kem Valdes LPNsie On: 31-Oct-2011 Intent Comments: sinus rhythm , borderline T abnormal ant leads MAMMOGRAM, SCREENING, BOTH BREASTS On: 18-Nov-2010 Intent (58059)By: Silvana Simmons MD DXA, BONE DENSITY, AXIAL SKELETON On: 18-Nov-2010 Intent (59780)By: Silvana Simmons MD Wax CurettesBy: PAIGE Rees On: 26-Mar-2010 Intent Ear Irrigation (90765)By: Cabrera On: 26-Mar-2010 Intent PAIGE SPECIMEN HNDLNG/TRNSPRT, OFFC > LAB On: 24-Nov-2009 Intent (60553)By: PAIGE Rees EEGBy: Ciesa Peggy ASH Ciesa INSULATOR CUTTER AND FORMER, On: 12-Aug-2009 Intent Peggy Saldana Holter Moniter (63867)By: Ciesa On: 12-Aug-2009 Intent Peggy ASH Cigeovany ASH Peggy Saldana CT - Brain/HeadBy: Citoma Peggy ASH On: 12-Aug-2009 Intent CiPeggy armenta CNP Bio Z (36345)By: Ciesa MIHIR Peggy Saldana On: 12-Aug-2009 Intent Peggy Lott CNP Echo CompleteBy: Peggy Lott CNP On: 12-Aug-2009 Intent Peggy Lott CNP Cartoid DopplerBy: Peggy Lott CNP On: 12-Aug-2009 Intent CiPeggy armenta CNP EKG (46330)By: Reanna Becker On: 12-Aug-2009 Intent Radiology - Cervical SpineBy: On: 04-Dec-2008 Intent Silvana Simmons MD Breast Diagnostic - RightBy: Iris On: 17-Nov-2008 Intent Silvana COLLINS Comments: abnormal mammo, 04-04 due for follow up EKG (07988)By: Silvana Simmons MD On: 17-Nov-2008 Intent MAMMOGRAM, SCREENING, BOTH BREASTS On: 27-Aug-2007 Intent (93196)By: Silvana Simmons MD EKG (79406)By: Silvana Simmons MD On: 27-Aug-2007 Intent Clinical Breast Examination On: 12-Jan-2007 Intent (G0101)By: Silvana Simmons MD MAMMOGRAM, SCREENING, BOTH BREASTS On: 12-Jan-2007 Intent (03563)By: Silvana Simmons MD Comments: after 02-15-07 Toradol Injection, 30 mg (J1885)By: On: 25-Oct-2006 Intent MIGUEL BERMAN CNP Comments: Given IM by Regino. Given inj to prevent ER visit. Pt has history of going to ER with same pain. Radiology - Lumbar SpineBy: CULLEN On: 25-Oct-2006 Intent MIGUEL ASH Planned Medications INJECTION, KETOROLAC TROMETHAMINE, PER 15 MG Ordered: 12-Jan-2018 Pending Peggy Lott CNP Cigeovany ASH, Thuy INJECTION, KETOROLAC TROMETHAMINE, PER 15 MG Ordered: 19-Feb-2018 Pending Cigeovany ASH, Thuy Ciesa MIHIR, Thuy INJECTION, KETOROLAC TROMETHAMINE, PER 15 MG Ordered: 27-Feb-2018 Pending Peggy Lott CNP, CNP, Peggy Saldana INJECTION, PROLIA Ordered: 16-Oct-2015 Pending Silvana Simmons MD Phenergan 50 MG/ML Injection Solution Ordered: 15-Jan-2013 Pending Peggy Lott CNP Cigeovany ASH, Thuy Instructions Name Dates Details Nonsmoker : [...] Instructions Indication: Hyperlipidemia Encounters Office Visit On: 02-Nov-2018 13:47 Encounter Reason: UTI - The urinary symptoms are described as frequency, urgency and burning. The symptoms have been occurring for 1 day. Note for Infection: Feeling like had to void frequently.Encounter Diagnosis: BMI 23.0-23.9, adult, Nonsmoker, End: 02-Nov-2018 15:11 Urinary frequency, Benign essential hypertension (401.1), Fever, Facial flushing, Pain in joint involving lower leg (719.46) [facility] Office Visit On: 15-Oct-2018 15:59 Encounter Diagnosis: [...] patient does not have durable power of estate planning attorney or living will. The patient has [...] ,emotional problems (depression) ,hypertension and other (hyperlipidemia, [place], low back pain, osteopenia ). Note for [...] [facility] End: 21-Aug-2006 15:45 Payers [place]/Medicare Lilliana Felix; stalney guarantor
--- OUTSIDE RECORDS SUMMARY | 2018-12-20 23:21 | XMS RPT_ITS ---
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 [...] pain left-sided] This note was generated with [employer] dictation software. It may contain incorrect words, [...] your Primary Care Provider. Call [facility] ([phone]) or report to the closest Emergency Room. Call 911 if necessary. 12/25/17 0750 <Electronically signed by Sue Friedman > Date Sue Friedman Cosigner Signature (If Indicated): Date CC: Peggy Lott [employer] DRIVER URINALYSIS, COMPLETE Collected: 12/25/2017 Status: F Source: [place] 7:45 AM [facility] [place] [place] REPOSITORY Order Comment: How was Urine Obtained? CLEAN CATCH TYPE CODE TESTS RESULT OUT OF RANGE REFERENCE UNITS LAB L400.3000 Yellow COLOR Normal Straw LAB L400.3050 Clear Normal CLARITY Clear LAB L400.3200 Normal mg/dl Normal GLUCOSE, UR Normal LAB L400.3300 Negative mg/dL Normal BILIRUBIN URINE Negative LAB L400.3400 Negative mg/dl Normal KETONE UR Negative LAB L400.3465 1.002-1.030 Normal SP.GR. DIPSTX 1.010 LAB L400.3550 5.0 - 8.0 pH UR Normal 7.0 LAB L400.3600 Negative mg/dl PROT Normal DIPSTX Negative LAB L400.3700 Normal mg/dl Normal UROBILI Normal LAB L400.3750 Negative Normal NITRITE UR Negative LAB L400.3780 Negative /ul Normal OCCULT BLOOD-UR Negative LAB L400.3800 Negative /ul LEUK Normal ESTERASE Negative LAB L400.4050 0-5 /hpf WBC Normal 0-5 SEEN LAB L400.4100 0-5 /hpf 0 Normal RBC-UA SEEN LAB L400.4150 5-10 /hpf SQUAM 0 Normal EPI SEEN LAB L400.4300 None Seen /hpf 0 Normal BACTERIA SEEN LAB L400.4350 <or=2+ /hpf 0 Normal MUCUS, URINE SEEN Performed By: #### L400.0001 #### [facility] Laboratory [address] [place], [address] ABDOMEN/PELVIS WITHOUT Observed: 12/25/2017 Status: F Source: [place] CONT 6:07 AM [facility] [place] REPOSITORY [facility] Imaging Services [address] [place] [address] Abdomen/Pelvis without Cont MR#: [id number] Acct: [id number] Name: YEIMI ARREDONDO Rep #: [id number] : 1950 F 67 From: Tylor Amor MD PCP: Peggy Lott NP Status: REG ER Study: Abdomen/Pelvis without Cont Date of Exam: 12/25/17 Exam# [id number] Ordering Dr: Sue Friedman STUDY: CT ABDOMEN AND PELVIS WITHOUT CONTRAST REASON [...] study dated January 15, 2013. FINDINGS: Mild increased markings at the lung bases suggestive of scarring. Coronary artery calcification. Stable 2.9 cm x 2.5 cm rounded hypodensity in the right lobe of the liver inferiorly. This was seen on prior examinations and most likely represents a hemangioma. Normal gallbladder and extrahepatic biliary system. Normal spleen. Normal pancreas. Normal bilateral adrenal glands. Small nonobstructive right intrarenal calculi. Nonobstructive left intrarenal calculi. There is a small hiatal hernia. Normal small intestine. There are multiple colonic diverticula consistent with diverticulosis. There is non-visualization of the appendix. There is diffuse atherosclerotic calcification of the abdominal aorta, without a demonstrated aneurysm. Normal inferior vena cava. Normal retroperitoneum. Normal urinary bladder. There is absence of the uterus consistent with a prior hysterectomy. There is a small umbilical hernia containing fat. Small bilateral inguinal lymph nodes. There are diffuse degenerative changes of the visualized lumbar spine. Status post laminectomy at the L4-L5 level. CT/Abdomen/Pelvis without Cont IMPRESSION: Stable hypodensity in the inferior aspect of the right lobe of the liver suggestive of hemangioma. Bilateral nonobstructive intrarenal calculi more prominent on the right side. Sigmoid diverticulosis. Prior appendectomy and hysterectomy. Electronically Signed: Tylor Amor MD at 8:10 EST Tel [phone], Service support , CC: Peggy Lott NP; Sue Idalia Director Corporate Sales: Signed CBC W/DIFF, AUTOMATED Collected: 12/25/2017 Status: F Source: [place] 5:58 AM [facility] [place] REPOSITORY TYPE CODE TESTS RESULT OUT OF RANGE REFERENCE UNITS LAB L100.1000 4.4-11.0 K/mm3 Low WBC 3.2 LAB L100.1200 4.2-5.4 M/mm3 Normal RBC 4.62 LAB L100.1300 12.0-15.0 g/dl Normal HGB 13.7 LAB L100.1400 37-47 % Normal HCT 42.5 LAB L100.1500 81-99 fL Normal MCV 92.0 LAB L100.1600 27.0-32.0 pg Normal MCH 29.7 LAB L100.1700 32-36 g/gl Normal MCHC 32.2 LAB L100.1810 11.6-14.6 % Normal RDW CV 13.1 LAB L100.1820 35.1-43.9 fl Normal RDW SD 43.7 LAB L100.1900 150-450 K/mm3 Normal PLT 205 LAB L100.2000 6.2-12.0 fl Normal MPV 9.7 LAB L100.2100 47-70 % Low NEUT% 44.4 LAB L100.2200 19-41 % Normal LY% 36.7 LAB L100.2300 0-10 % High MONO% 15.8 LAB L100.2400 0-5 % Normal EO% 2.5 LAB L100.2500 0-1 % Normal BASO% 0.6 LAB L100.2550 0.0-0.9 % Normal IM GRAN % 0.000 Result Comment: IG% - Immature Granulocytes (promyelocytes, myelocytes and metamyelocytes) > 1% indicates that a LEFT SHIFT is Present. LAB L100.2620 2.0-7.7 X10 3/uL Low Absolute Neut 1.4 LAB L100.2720 0.83-4.51 X10 3/ul Normal Absolute Lymph 1.16 Performed By: #### L100.0100 #### [facility] Laboratory [address] [place], [address] COMPREHENSIVE METABOLIC Collected: 12/25/2017 Status: F Source: [place] [facility] 5:58 AM [facility] [place] REPOSITORY TYPE CODE TESTS RESULT OUT OF RANGE REFERENCE UNITS LAB L501.0100 70-110 mg/dL Normal GLU 96 LAB L501.1000 7-18 mg/dL Normal BUN 16 LAB L501.1100 0.55-1.02 mg/dL Normal 0.77 CREAT,SERUM Result Comment: The validity of the calculated GFR AND GFRAA in patients over 70 years has not been determined. Clinical correlation is essential. LAB L501.1110 >60 mL/min Normal EST GFR 79 Result Comment: Non- GFR Calc LAB L501.1115 >60 mL/min Normal EST GFR - AA 96 Result Comment: GFR Calc LAB L501.1255 ml/min Normal Estimated CRCL 40.63 LAB L501.1300 10-20 RATIO High BUN/CRE 20.8 LAB L501.1500 6.4-8. g/dL Normal 2 T PROT 7.2 LAB L501.1800 3.2-5. g/dL Normal 0 ALB 3.3 LAB L501.1950 2.2-4. g/dL Normal 2 GLOB 3.9 LAB L501.2000 0.9-2. RATIO Low 4 A/G 0.8 LAB L501.2200 8.5-10 mg/dL Normal .1 CA 9.0 LAB L501.4100 15-37 U/L Normal AST 25 LAB L501.4305 45-117 U/L Normal ALK P 66 LAB L501.4405 13-56 U/L Normal ALT 25 Result Comment: Please note revised ALT reference range effective 2017. LAB L501.4600 0.20-1.00 mg/dL Normal T BILI 0.90 LAB L501.5300 136-145 mmol/L Normal NA 140 LAB L501.5600 3.5-5.1 mmol/L Normal K 4.0 LAB L501.5900 98-107 mmol/L Normal CL 104 LAB L501.6100 21.0-32.0 mmol/L Normal CO2 28.0 LAB L501.6200 5-15 Normal GAP 8 Performed By: #### L500.4050, L501.2450 #### [facility] Laboratory [address] [place], [address] LIPASE Collected: 12/25/2017 Status: F Source: [place] 5:58 AM [facility] [place] REPOSITORY TYPE CODE TESTS RESULT OUT OF RANGE REFERENCE UNITS LAB L501.2450 73-393 U/L Normal LIPASE 211 Performed By: #### L500.4050, L501.2450 #### [facility] Laboratory [address] [place], [address] PROGRESS Observed: 12/19/2017 Status: COMPLETED Source: [place] 5:41 PM [facility] REPOSITORY HNO ID: [id number] Author: Mckenzie Cintron) Florian Service: (none) Author Type: Physician Litigation Associate Type: Progress Notes Filed: 12/19/2017 5:54 PM Note Text: HPI Pt presents with cough, headache, fever, and chills since last night. She did not get a flu shot this season. She does have clear mucous production. No sinus pain or pressure. Mild sore throat. No ear pain. Her temp at home was 101.2 a few hours ago. No ibuprofen or tylenol today. Review of Systems Constitutional: Positive for chills, fever and malaise/fatigue. HENT: Positive for congestion. Negative for ear pain and sore throat. Eyes: Negative. Respiratory: Negative for shortness of breath and wheezing. Cardiovascular: Negative. Gastrointestinal: Positive for nausea. Genitourinary: Negative. Musculoskeletal: Negative. Skin: Negative. All other systems reviewed and are negative. PAST MEDICAL HISTORY Diagnosis Date - PMH - PAST MEDICAL HISTORY OF slightly hypertensive per primary phy. Current Outpatient Prescriptions: lisinopril-hydrochlorothiazide 20-25 mg per tablet Take 1 tablet by mouth once daily. Disp: Rfl: oseltamivir (TAMIFLU) 75 mg capsule Take 1 capsule by mouth twice daily for 5 days. Disp: 10 capsule Rfl: 0 benzonatate (TESSALON PERLES) 100 mg capsule Take 2 capsules by mouth three times daily as needed for Cough. Disp: 20 capsule Rfl: 0 Benzonatate (TESSALON) 200 mg capsule Take 200 mg by mouth three times daily as needed for Cough. Disp: 30 capsule Rfl: 0 omeprazole 20 mg capsule Take 1 capsule by mouth once daily. Disp: 30 capsule Rfl: 3 pantoprazole 40 mg tablet Take 40 mg by mouth once daily. Disp: Rfl: No current facility-administered medications for this visit. PAST SURGICAL HISTORY Procedure Laterality Date - COLONOSCOP W/ OR W/O [facility] SPEC 03/19/13 Colonoscopy - EGD W/O OR W/BRUSH/WASH 01/12/13 EGD [facility] inpt - PAST SURGICAL HISTORY OF partial hysterectomy FAMILY HISTORY Problem Relation Age of Onset - Heart Mother alzheimer's - Aneurysm Father - Aneurysm Brother - lung cancer [Other] [OTHER] Sister Social History Substance Use Topics - Smoking status: Never Smoker - Smokeless tobacco: Never Used - Alcohol use No BP 126/82 Pulse 108 Temp 38.7 ?C (101.6 ?F) (Tympanic) Resp 16 Wt 67.1 kg (148 lb) SpO2 96% Physical Exam Constitutional: She is oriented to person, place, and time and well-developed, well-nourished, and in no distress. HENT: Head: Normocephalic and atraumatic. Right Ear: External ear normal. Left Ear: External ear normal. Nose: Mucosal edema and rhinorrhea present. Mouth/Throat: Uvula is midline and mucous membranes are normal. Posterior oropharyngeal erythema present. No oropharyngeal exudate or posterior oropharyngeal edema. Neck: Normal range of motion. Neck supple. No meningismus Cardiovascular: Normal rate, regular rhythm and normal heart sounds. Pulmonary/Chest: Effort normal and breath sounds normal. She has no wheezes. She has no rales. Lymphadenopathy: She has no cervical adenopathy. Neurological: She is alert and oriented to person, place, and time. Skin: Skin is warm and dry. No rash noted. Psychiatric: Affect and judgment normal. Nursing note and vitals reviewed. Assessment 1. Influenza-like illness - I will start pt on tamiflu , she is in the window. Also given tessalon for symptoms. She has a fever here and instructed on tylenol for body aches and fever at home. Discussed concerning symptoms to go to the ED. Pt and agreeable with this plan. CNOV Observed: 12/19/2017 Status: COMPLETED Source: [place] 5:15 PM [facility] REPOSITORY [facility] YEIMI ARRED[facility]DO ([id number]) 1950 F Date Time Provider Department 12/19/17 5:15 PM MCKENZIE DU (RADHA) [facility] During your visit today, we recorded the following information about you: Temperature Pulse Respiration Blood pressure 101.6 degrees 108/minute 16/minute 126/82 Weight 67.1 kg Mckenzie Du PA-C 12/19/2017 5:54 PM Signed HPI Pt presents with cough, headache, fever, and chills since last night. She did not get a flu shot this season. She does have clear mucous production. No sinus pain or pressure. Mild sore throat. No ear pain. Her temp at home was 101.2 a few hours ago. No ibuprofen or tylenol today. Review of Systems Constitutional: Positive for chills, fever and malaise/fatigue. HENT: Positive for congestion. Negative for ear pain and sore throat. Eyes: Negative. Respiratory: Negative for shortness of breath and wheezing. Cardiovascular: Negative. Gastrointestinal: Positive for nausea. Genitourinary: Negative. Musculoskeletal: Negative. Skin: Negative. All other systems reviewed and are negative. PAST MEDICAL HISTORY Diagnosis Date - PMH - PAST MEDICAL HISTORY OF slightly hypertensive per primary phy. Current Outpatient Prescriptions: lisinopril-hydrochlorothiazide 20-25 mg per tablet Take 1 tablet by mouth once daily. Disp: Rfl: oseltamivir (TAMIFLU) 75 mg capsule Take 1 capsule by mouth twice daily for 5 days. Disp: 10 capsule Rfl: 0 benzonatate (TESSALON PERLES) 100 mg capsule Take 2 capsules by mouth three times daily as needed for Cough. Disp: 20 capsule Rfl: 0 Benzonatate (TESSALON) 200 mg capsule Take 200 mg by mouth three times daily as needed for Cough. Disp: 30 capsule Rfl: 0 omeprazole 20 mg capsule Take 1 capsule by mouth once daily. Disp: 30 capsule Rfl: 3 pantoprazole 40 mg tablet Take 40 mg by mouth once daily. Disp: Rfl: No current facility-administered medications for this visit. PAST SURGICAL HISTORY Procedure Laterality Date - COLONOSCOP W/ OR W/O [facility] SPEC 03/19/13 Colonoscopy - EGD W/O OR W/BRUSH/WASH 01/12/13 EGD [facility] inpt - PAST SURGICAL HISTORY OF partial hysterectomy FAMILY HISTORY Problem Relation Age of Onset - Heart Mother alzheimer's - Aneurysm Father - Aneurysm Brother - lung cancer [Other] [OTHER] Sister Social History Substance Use Topics - Smoking status: Never Smoker - Smokeless tobacco: Never Used - Alcohol use No BP 126/82 Pulse 108 Temp 38.7 ?C (101.6 ?F) (Tympanic) Resp 16 Wt 67.1 kg (148 lb) SpO2 96% Physical Exam Constitutional: She is oriented to person, place, and time and well-developed, well-nourished, and in no distress. HENT: Head: Normocephalic and atraumatic. Right Ear: External ear normal. Left Ear: External ear normal. Nose: Mucosal edema and rhinorrhea present. Mouth/Throat: Uvula is midline and mucous membranes are normal. Posterior oropharyngeal erythema present. No oropharyngeal exudate or posterior oropharyngeal edema. Neck: Normal range of motion. Neck supple. No meningismus Cardiovascular: Normal rate, regular rhythm and normal heart sounds. Pulmonary/Chest: Effort normal and breath sounds normal. She has no wheezes. She has no rales. Lymphadenopathy: She has no cervical adenopathy. Neurological: She is alert and oriented to person, place, and time. Skin: Skin is warm and dry. No rash noted. Psychiatric: Affect and judgment normal. Nursing note and vitals reviewed. Assessment 1. Influenza-like illness - I will start pt on tamiflu , she is in the window. Also given tessalon for symptoms. She has a fever here and instructed on tylenol for body aches and fever at home. Discussed concerning symptoms to go to the ED. Pt and agreeable with this plan. Referring Provider: SELF [200] Allergies As of Date: 12/19/2017 Noted Allergy Reaction CODEINE 02/24/2004 PENICILLINS 09/16/2015 8 - GI Upset SULFA (SULFONAMIDE ANTIBIOTICS) 02/24/2004 TETANUS AND DIPHTHERIA TOXOIDS, A*02/25/2013 7 - Swelling Date Reviewed: 12/19/2017 Reviewed by: Bradley Lebron Cma - Fully Assessed Reason for Visit: Cough [28] Cmt: cough and chest congestion x 1 day bodyaches [Other] Cmt: x 1 day Neck Pain [135] Cmt: x 1 day Headache [52] Cmt: x 1 day Fever [47] Cmt: x 1 day Primary Visit Diagnosis:Influenza-like illness [R69] Order(s):oseltamivir (TAMIFLU) 75 mg capsuleTake 1 capsule by mouth twice daily for 5 days.Disp: 10 capsuleRfl: 0 benzonatate (TESSALON PERLES) 100 mg capsuleTake 2 capsules by mouth three times daily as needed for Cough.Disp: 20 capsuleRfl: 0 Prescriptions as of 12/19/2017 Sig: LISINOPRIL 20 MG-HYDROCHLOROT* Take 1 tablet by mouth once d* OSELTAMIVIR 75 MG CAPSULE Take 1 capsule by mouth twice* BENZONATATE 100 MG CAPSULE Take 2 capsules by mouth thre* BENZONATATE 200 MG CAPSULE Take 200 mg by mouth three ti* OMEPRAZOLE 20 MG CAPSULE,KEVEN* Take 1 capsule by mouth once * PANTOPRAZOLE 40 MG TABLET,DEL* Take 40 mg by mouth once nereyda* Medication notes this encounter BENZONATATE 200 MG CAPSULE >> Bradley Lebron Cma 12/19/2017 5:31 PM >> BRADLEY LEBRON CMA Dec 19, 2017 5:31 PM Finished Problem List As Of Date 12/19/2017 Noted Resolved OTHER BACK SYMPTOMS [M53.80] INVALID FOR* LUMBOSACRAL SPONDYLOSIS [M46.94] INVALID FOR* POSTLAMINECT SYND-LUMBAR [M96.1] INVALID FOR* Prescriptions ordered this encounter Disp Refills Start End OSELTAMIVIR 75 MG CAPSULE 10 c* 0 12/19/2017 12/24/2017 Route: ORAL Sig: Take 1 capsule by mouth twice daily for 5 days. BENZONATATE 100 MG CAPSULE 20 c* 0 12/19/2017 Route: ORAL Sig: Take 2 capsules by mouth three times daily as needed for Cough. Letter Text [facility] RADHA Francis [address] [place], [place] [address] 12/19/2017 TO WHOM IT MAY CONCERN: This is to confirm that Yeimi Pantoja Isidro had an appointment and was seen at the [facility] in the Department of Urgent Care by RADHA Francis on 12/19/2017, she has influenza. Sincerely yours, RADHA Francis Encounter Status:Closed by MCKENZIE DU PA-C on 12/19/17 ALLERGIES ALLERGIES DATE TYPE / CODE NAME / CODE REACTION SEVERITY SOURCE 10/25/2018 Drug Sulfa (Sulfonamide Nausea Unknown [facility] Allergy/416 Antibiotics)/F0010 Community 539031(SNOM 06743(RXNORM) Hospital ED CT) Repository 10/25/2018 Drug Tetanus Vaccines Swelling Unknown [place] Allergy/416 and Community 349533(SNOM Toxoid/O900155305( Hospital ED CT) RXNORM) Repository 10/25/2018 Drug codeine/[id number] Nausea Unknown [facility] Allergy/416 (RXNORM) Community 980322([facility] ED CT) Repository 09/16/2015 Drug PENICILLINS GI UPSET [facility] Class/81772 [place] 1003(SNOMED Repository CT) 02/25/2013 DRUG TETANUS AND SWELLING [facility] INGREDI/419 DIPHTHERIA [place] 852844(SNOM TOXOIDS, ADSORBED, Repository ED CT) ADULT 02/24/2004 DRUG CODEINE [facility] INGREDI/419 [place] 579912(SNOM Repository ED CT) 02/24/2004 Drug SULFA (SULFONAMIDE [facility] Class/36773 ANTIBIOTICS) [place] 1003(SNOMED Repository CT) ENCOUNTERS ENCOUNTERS ADMIT/DISCHARGE ACCOUNT ADMITTING ENCOUNTER LOCATION SOURCE NUMBER CLASS 11/13/2018 [id number] [facility] ing:PT Repository 10/25/2018/10/25/20 [id number] Emergency [address] ing:ED Repository 10/16/2018 1575 Ambulatory Building:[facility] Practices Repository 09/10/2018 [id number] [facility] ing:MTLAB Repository 07/24/2018/07/24/20 [id number] Emergency [address] ing:ED Repository 04/17/2018/04/17/20 [id number] Ambulatory [address] Hospital ing:PT Repository 02/19/2018 [id number] Ambulatory [facility] ing:HPRAD Repository 01/24/2018 [id number] Ambulatory [facility] ing:NM Repository 12/25/2017/12/25/19 [id number] Emergency [address] ing:ED Repository 12/19/2017/12/20/19 [id number] Ambulatory [address] Repository PAYERS PAYERS ENCOUNTER GUARANTOR PAYER SUBSCRIBER SOURCE 11/13/2018 PADDY Vigil Primary YEIMI Pantoja Alejandro [id number] Insurance:MARIANNE FERNANDESB: Community KAJAL DRUNIT MEDICARE [facility] [id number] Number: Repository [address]Oue: 330 [id number] [phone] () Date:2099-76-02GK [address] [place] [address]16[address]FK: 11/13/2018 Secondary NOT GIVENUNK Alejadnro Insurance:SELF PAY [facility] Number: Effective Repository Date:2018-11-12 10/25/2018 PADDY Vigil Primary YEIMI Pantoja Alejandro [id number] Insurance:MARIANNE FERNANDESB: [facility] KAJAL DRUNIT MEDICARE [facility] [id number] Number: Repository [address]Lsv: 330 [id number] [phone] () Date:3293-45-39XN [address] [place] [address] 48614OC: 10/25/2018 Secondary NOT GIVENUNK Alejandro Insurance:SELF PAY [facility] Number: Effective Repository Date:2018-10-25 10/16/2018 Yeimi J Primary Yeimi J OHIP Practices DenaB: Insurance:Marianne/Octavio Junior: Repository [id number] [facility] [id number] Number: [id number], [id number] [address], [place] [address]Vnb: Date:6936-66-15Jwjr [place] [address]Ipa: Name:GPO [address] () [id number] [place] [address] () [id number]: 10/16/2018 Secondary Paddy T OHIP Practices Insurance:AuFlavia FernandesB: Repository icy Number: [id number] [address] Date:1999-05-27 [place], 3290-79-36Fpjy [place] [address]Rex: Name:CHINTANO [address] [place] [address] (HP)Tel: [phone]: ([phone] 10/16/2018 [facility] OHIP Practices Insurance:[facility] DenaB: Repository l Benefits [id number] AdminPolicy Number: [address] [id number] [place], Date:2007-10[birth year] - [place] [address]Sjw: 1196-10-46Utds Name:[id number] [facility] (HP)Tel: [phone] [facility] [phone] (JM) [place] [address]MA: 10/16/2018 [facility] OHIP Practices Insurance:MelvinTammy FernandesB: Repository icy Number: [id number] [address] Date: [place], 0505-90-47Wgvy [place] [address]Cen: Name:[facility] [address] [place] [address] (HP)Tel: [phone]: ([phone] 10/16/2018 [facility] OHIP Practices [facility] Repository ChoicePolicy Number: [id number] [address] Date:2011-07-28 [place], 3024-00-62Wnyv [place] [address]Xqx: Name:[facility] [address], [place] (HP)Tel: [phone]: [phone] (KW) [phone] 10/16/2018 [facility] Yeimi Pantoja OHIP Practices Insurance:[place]/Octavio Junior: Repository care [facility] [id number] Number: [address] [id number] [address], Date:2014 - [place] [address]Wut: [id number] ~(3 Name:[facility] [address] (HP) [address] [place] [address] [id number]: 09/10/2018 PADDY Vigil Primary YEIMI J [place] [id number] Insurance:MARIANNE JUNIOR: Community KAJAL BACKUNIT MEDICARE PPOPolicy [id number], [place] Number: Repository [id number]: (330 [id number] [phone] (HP) Date:8308-40-95IE [address] [place] [address]AZ: 09/10/2018 Secondary NOT GIVENUNK [place] Insurance:SELF PAY [facility] Number: Effective Repository Date:2018-09-10 07/24/2018 Paddy Vigil Primary YEIMI J Ale[place] [id number] Insurance:MARIANNE JUNIOR: [facility] Kajal BackUnit MEDICARE PPOPolicy [id number] [place] Number: Repository [address]Lsx: ([phone] [id number] [phone] (HP) Date:4792-28-74QF [address] [place] [address]FZ: 07/24/2018 Secondary NOT GIVENUNK [place] Insurance:SELF PAY [facility] Number: Effective Repository Date:2018-07-24 04/17/2018 Paddy Vigil Primary YEIMI J Alej[place] [id number] Insurance:MARIANNE JUNIOR: [facility] MEDICARE PPOPolicy [id number] [place] Number: Repository [id number]: ([phone] [id number] [phone] (HP) Date:[id number] [address] [place] [address] [id number]: 04/17/2018 Secondary NOT GIVENUNK Alejandro Insurance:SELF PAY [facility] Number: Effective Repository Date:2018-02-19 02/19/2018 Paddy Vigil Primary YEIMI Pantoja Alejandro [id number] Insurance:MARIANNE JUNIOR: Community [facility] MEDICARE OPolicy [id number], [place] Number: Repository [id number]: [phone] [id number] [phone] (HP) Date:[id number] [address] [place] [address] [id number]: 02/19/2018 Secondary NOT GIVENUNK Alejandro Insurance:SELF PAY [facility] Number: Effective Repository Date:2018-02-19 01/24/2018 Paddy Vigil Primary YEIMI J Alejandro [id number] Insurance:MARIANNE JUNIOR: Community [facility] MEDICARE OPolic [id number], [place] Number: Repository [id number]: [phone] [id number] [phone] (HP) Date:[id number] [address] [place] [address] [id number]: 01/24/2018 Secondary NOT GIVENUNK [place] Insurance:SELF PAY [facility] Number: Effective Repository Date:2018-01-17 12/25/2017 Paddy Vigil Primary YEIMI Pantoja Alejandro [id number] Insurance:MARIANNE JUNIOR: Community [facility]ARE [facility] [id number], [place] Number: Repository [id number]: ([phone] [id number] [phone] (HP) Date:[id number] [address] [place] [address] [place] [address]QD: 12/25/2017 Secondary NOT GIVENUNK [place] Insurance:SELF PAY [facility] Number: Effective Repository Date:2017-12-25
== END 2018-10-25 17:20 | disposition home or self-care (01) ==
LOC: ED 17:10
PROVIDERS: Emergency Provider Emergency Medicine; Family Provider Nurse Practitioner; PCP Nurse Practitioner
DX: S83.91XA Sprain of unspecified site of right knee, initial encounter (principal); W01.0XXA Fall on same level from slipping, tripping and stumbling without subsequent striking against object, initial encounter; Y93.01 Activity, walking, marching and hiking; Y92.9 Unspecified place or not applicable; Y99.9 Unspecified external cause status; I10 Essential (primary) hypertension; Z79.899 Other long term (current) drug therapy
CPT/HCPCS: 73564; 99283

== ENCOUNTER 2018-12-03 12:03 | Emergency (ER) | payer MEDICARE, SELFPAY ==
[2018-12-03 12:04] VITALS: BP 147/112; PULSE 113; RESP 15; TEMP 36.5; O2SAT 99; BMI 24.5
[2018-12-03 13:29] VITALS: BP 140/95; PULSE 95; RESP 17; O2SAT 99
[2018-12-03 13:31] VITALS: BP 140/95; PULSE 95; RESP 17; TEMP 36.5; O2SAT 99
--- NOTE | 2018-12-03 13:59 | CT_ITS ---
STUDY: CT ABDOMEN AND PELVIS WITHOUT CONTRAST REASON FOR EXAM: Female, 68 years old. Right flank pain. History of kidney stones. RADIATION DOSAGE (If Supplied By Facility): CTDIvol = ( 6.75 ) mGy, DLP = ( 295.24 ) mGycm TECHNIQUE: Transaxial images were obtained from the dome of the diaphragm to the symphysis pubis without oral contrast, and without intravenous contrast. Sagittal and coronal images were reconstructed. Individualized dose optimization techniques were used for this CT. COMPARISON: Comparison is made with prior study dated December 25, 2017. FINDINGS: Mild increased markings in the anterior aspect of the left lung base suggestive of scarring. This is unchanged. Coronary artery calcification. Stable 2.9 cm x 2.5 cm rounded hypodense nodule in the posterior aspect of the right lobe of the liver. This may represent an hemangioma. Normal gallbladder and extrahepatic biliary system. Normal spleen. Normal pancreas. Normal bilateral adrenal glands. Punctate calcification in the upper pole calyx of the right kidney. 2 mm calculus in the lower pole calyx of the right kidney. Normal left kidney. Normal visualized stomach. Normal small intestine. There are multiple colonic diverticula consistent with diverticulosis. There are surgical clips in the region of the appendix consistent with a prior appendectomy. There is scattered atherosclerotic calcification of the abdominal aorta, without a demonstrated aneurysm. Normal inferior vena cava. Normal retroperitoneum. Normal urinary bladder. There is absence of the uterus consistent with a prior hysterectomy. Normal abdominal wall. There are diffuse degenerative changes of the visualized lumbar spine. Prior laminectomy at the L4-L5 and L5-S1 levels. CT/Abdomen/Pelvis without Cont IMPRESSION: Nonobstructive right intrarenal calculi. No obstructive uropathy is seen. Electronically Signed: Tylor Amor MD at 15:01 EST Tel [phone], Service support ,
--- NOTE | 2018-12-03 14:06 | ED.VISSUMM ---
- ER Visit Summary Date of Service: 12/03/18 Chief Complaint: Flank pain History of Present Illness: The patient is a 68 F history of multiple kidney stones some needed to be surgically removed. Prior hysterectomy. Patient states that since around 1030 this morning she had right flank pain radiating to her right lower quadrant. Associated nausea vomiting. No fever. No dysuria. No gross hematuria. Physical Examination: Well-appearing older female. Vital signs are stable. She is afebrile. She does not look septic toxic. She is in no acute distress. H EENT exam unremarkable. Neck nontender. Lungs clear to auscultation bilaterally. Heart regular rhythm no murmur. Abdomen soft and nontender. Peritoneal signs. No pulsatile mass. Moving all 4 extremities neurovascularly intact. Calves are nontender without edema or cords. Neurologically she is awake and alert. Back is nontender. No CVA tenderness. Neurologically awake and alert with no focal motor deficits. Test Results: BMP unremarkable. Liver enzymes normal. UA normal. No infection. No blood. CT flank study without contrast shows a right intrarenal calculi. No acute ureteral calculi nor obstructive uropathy. Prior appendectomy and hysterectomy. Read by the radiologist and reviewed by myself also. Emergency Department Course and Treatment: Treated with IV morphine and Zofran. Liter normal saline. Patient doing well on repeat exam at 1627. Abdomen is benign. She and I discussed all her test results. Treatment Plan: Discharged home.. Follow-up with her primary care provider Peggy Lott Disposition: Discharge Impression: Acute right flank pain of uncertain etiology History of kidney stones This note was generated with [employer] dictation software. It may contain incorrect words, spelling, and punctuation that were not noted in review of the chart prior to signing ED Disposition - Plan for ED Patient: Chief Complaint: Flank Pain Referrals: Peggy Lott, [employer]-C [Primary Care Provider] -
[2018-12-03] MEDS: 0.9% Normal Saline 1,000 ML 1000 ML IV (14:15)
[2018-12-03] MEDS: Morphine 4 MG/ML Syringe IV (14:15)
[2018-12-03] MEDS: Ondansetron 4 MG/2 ML Vial IV (14:15)
[2018-12-03 14:24] LABS: Bacteria 0 SEEN /hpf (None Seen); Mucous, Urine 0 SEEN /hpf (<or=2+); Red Blood Cells-Urine 0 SEEN /hpf (0-5)
[2018-12-03 14:36] LABS: Color, Urine Yellow (Yellow); Glucose, Dipstick Normal (Normal); Ketone-Dipstick Negative (Negative); Leukocyte Esterase-Dipstick 25 /ul (Negative); Nitrite-Dipstick Negative (Negative); Occult Blood-Urine Negative /ul (Negative); Protein-Dipstick Negative (Negative); Specific Gravity, Urine 1.015 (1.002-1.030); Urine Bilirubin Dipstick Negative (Negative); Urine Clarity Clear (Clear); Urine Urobilinogen Normal (Normal)
[2018-12-03 14:42] LABS: Squamous Epithelial Cells - UA 0-5 SEEN /hpf (5-10); White Blood Cells 0-5 SEEN /hpf (0-5)
[2018-12-03 14:47] LABS: AST(SGOT) 19 U/L (15-37); Alanine Aminotransfer ALT/SGPT 27 U/L (13-56); Alkaline Phosphatase 62 U/L (45-117); Anion Gap 8 (5-15); BUN 22 mg/dL (7-18); BUN/Creat Ratio 29.3 RATIO (10-20); Bilirubin, Direct 0.16 mg/dL (0.00-0.30); Calcium,Total 9.1 mg/dL (8.5-10.1); Chloride 105 mmol/L (98-107); Creatinine, Serum 0.75 mg/dL (0.55-1.02); EST Glomerular Filtration Rate 81 mL/min (>60); Est Glom Filt Rate - Afr Amer 98 mL/min (>60); Estimated Creatinine Clearance 38.14 ml/min; Globulin 3.7 g/dL (2.2-4.2); Glucose 93 mg/dL (74-106); Potassium 3.9 mmol/L (3.5-5.1); Protein, Total 7.7 g/dL (6.4-8.2); Sodium Level 140 mmol/L (136-145)
--- NOTE | 2018-12-03 16:30 | ED.DEP ---
ED Disposition - Plan for ED Patient: Disposition: Home or Assisted Living Chief Complaint: Flank Pain Instructions: ED Flank Pain Uncertain Cause Referrals: Peggy Lott NP-C [Primary Care Provider] - 3-5 Days if not improving Additional Instructions: Follow-up with your nurse practitioner. Your labs are unremarkable today. There is no signs of urinary tract infection. The CAT scan showed no signs of an acute kidney stone.
[2018-12-03 16:58] VITALS: PULSE 82; RESP 15; O2SAT 96
== END 2018-12-03 17:02 | disposition home or self-care (01) ==
PROVIDERS: Emergency Provider Emergency Medicine; Family Provider Nurse Practitioner; PCP Nurse Practitioner
DX: R10.9 Unspecified abdominal pain (principal); R11.2 Nausea with vomiting, unspecified; Z79.899 Other long term (current) drug therapy; Z87.442 Personal history of urinary calculi; Z90.710 Acquired absence of both cervix and uterus
CPT/HCPCS: 74176; 80048; 80076; 81001; 96361; 96374; 96375; 99283; J7030; A4216; J2405

== ENCOUNTER 2018-12-13 16:00 | Outpatient (RCR) | payer MEDICARE, SELFPAY ==
--- NOTE | 2018-11-13 16:39 | HP.PTEVAL ---
Patient's Visit Information JOSE RAFAEL ARREDONDO is a 68 year old F referred to Physical Therapy by Yovanny Rossi PA-C with a diagnosis of SPRAIN OF OTHER SPECIFIED PARTS OF RIGHT KNEE. Date of Evaluation: 11/13/18 Physical Therapist: Blake Stevens PT, Cert MDT, OCS - Visit Plan Frequency: 2x /Week Duration: 4 Weeks Plan: MODALITIES NEEDED ,PRE'S QUAD/HAMS/HIP ,FUNCTIONAL STRENGTHENING - Subjective Findings: This 68 y/o female prfesents to physical therapy with right knee pain . Patient has had knee pain 2weeks after tripping at home on carpet and heard a pop. Patient seen [facility] x-rays -. Patient described as ache and sharp pain. Patient had few episodes of buckling. Patient stated knee is worse with walking ,.standing,sqautting,kneeling. Symptoms okay at night. Sleeping good. Patient denies parathesia/tingling. Patient pain affects QOL and function. VOCATION: [employer]. SOCIAL: - Pain Right Knee Pain Intensity (Out of 10): 6 Pain Intensity Range: 10 - Objective POSTURE:mild posture ,mild knee valgus. NEURO: denies parathesia/tingling,reflexes 2/3. GAIT: reciprocal pattern ,mild decrease satnce right side. PROPRIOCEPTION: poor. MMT: quads/hams 4-/5,hip flexion 3+/5,abd 3+/5. ATROPHIED: VMO. AROM: supine knee flexion 0-140 degrees. STAIRS: ascend/desend one step at time. EDEMA: absent - Special Tests R Knee Yecenia - Meniscus: Negative R Knee Apley - Meniscus: Negative R Knee Valgus - MCL: Negative R Knee Varus - LCL: Negative R Knee Patellar Grind - PFS: Negative R Knee Medial Patellar Plica - Plica Syndrome: Negative - Goals Goal 1:: Indenpendant with HEP. Goal Time Frame: 2-4 Weeks Goal 2:: Patient to normalize gait with reciprocal pattern Goal Time Frame: 2-4 Weeks Goal 3:: Patient to increase strength quads/hams/hip 4/5 to improve function. Goal Time Frame: 4-6 Weeks Goal 4:: Patient be able to perform ADL'S and job demnads with limitations Goal Time Frame: 4-6 Weeks Goal 5:: Patient to improve LFES score by 5-10 points or greater to improve QOL. Goal Time Frame: 4-6 Weeks - Rehabilitation Potential Physical Therapy Diagnosis: This patient has right knee pain with weakness impairs function with walking ,kneeling thus impairs ADL'S thus benifit skilled PT. Rehabilitation Potential: Good - Anticipated Interventions Patient/Client Instruction: Educate patient on: Condition, Plan of Care For the Purpose of:: To decrease pain, To improve muscle performance and motor function, To increase tolerance to activity/condition/position, To improve ability of physical actions for home/community/work/leisure, To improve health of tissue, To decrease soft tissue restriction, To improve ability to perform tasks related to life management Therapeutic Exercise to Include: Strength training, Balance training, Active ROM Comment: QUADS/HAMS/HIP For the Purpose of:: To decrease pain, To improve muscle performance and motor function, To increase tolerance to activity/condition/position, To improve ability of physical actions for home/community/work/leisure, To improve health of tissue, To decrease soft tissue restriction, To increase flexibility/ROM, To improve health and function, To improve ability to perform tasks related to life management TENS: Yes IF ES: Yes Cryotherapy (ice pack, ice massage): Yes Thermo therapy (hot pack): Yes For the Purpose of:: To decrease pain, To improve nutrient delivery to tissue, To increase oxygenation perfusion, To improve health of tissue, To decrease soft tissue restriction Thank you for the opportunity to evaluate your patient. For Medicare and Medicare HMO plans, please review the plan of care and approve it. It will need to be FAXED BACK to us at [phone] for Medicare purposes. For Medicare only, by signing this I certify the plan of care. Please let me know if there are questions or concerns regarding this plan of care. Physician Signature: Date:
--- NOTE | 2018-11-22 17:29 | HP.PTEVAL2_ITS ---
Patient's Visit Information JOSE RAFAEL ARREDONDO is a 68 year old F referred to Physical Therapy by Yovanny Rossi PA-C with a diagnosis of RIGHT SHOULDER PAIN. Date of Evaluation: 11/22/18 Physical Therapist: Blake Stevens PT, Cert MDT, OCS - Visit Plan Frequency: 2x /Week Duration: 4 Weeks Plan: US/ESTIM/CP FOR PAIN RELEIVE,RTC/SCAPUALR STRENGTHENING,POSTURAL EX'S - Subjective Findings: This 68 y/o female presents to physical therapy right shoulder pain since Aug 11. Pateint stated [place] landed on right shoulder pain progressively worse.Patient pain located right shoulder grossly to lateral upper arm. Symptoms worse with driving,[place] activities above 90 degrees impairs ADLS' and housework tasks. Pain described as ache. Patient better rest. Patient seen DR tried coritizone injections didn't help and gave MEDS.Also did x-rays for fracture. Patient pain affects sleep. Patient pain affects QOL and function. SOCAIL: . 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 PALPATION: BICIPATAL GROVE long head bicep,subscabularis. NEURO: intact. AROM: shoulder flexion 160 degrees,abduction 155 degrrees,ER 90 degrees,IR 75 degrees. SCAPULAR HUMERAL FUNCTION: 1:1. CAPSULAR: WFL. MMT: RTC 4-/5 EXCEPT SUBSACPULARIS 3+/5 with pain ,DELTOID 4-/5 pain scapular 3+/5. FUNCTIONAL TEST: IR L3,ER C5 - Special Tests External Rotation Lag Test - RC Tear: Negative Supine Impingement Test - RC Tear: Negative Drop Sign - IS Test: Negative Empty Can - SS: Negative Belly Press - SupScap: Negative Joseph Luis Angel - Impingement: Negative Speeds Test - Labrum/Biceps: Positive AC Resisted - AC: Negative - Goals Goal 1:: Independant with HEP Goal Time Frame: 4-6 Weeks Goal 2:: Patient to decrease right shoulder pain by 50% or greater to improve dfunction. Goal Time Frame: 4-6 Weeks Goal 3:: Patient to improve strength 4/5 to improve function with OH activities. Goal Time Frame: 4-6 Weeks Goal 4:: Patient be able to perform ADLS and housewotk tasks with min limiations. Goal Time Frame: 4-6 Weeks Goal 5:: Patient to improve QUICK DASH JULIAN score by 5 points or greater to improve QOL. Goal Time Frame: 4-6 Weeks - Rehabilitation Potential Physical Therapy Diagnosis: Patient appears to have bicepital tendonitis with pain and with palaption nand MMT, weak and painfull subscapularis pain with MMT which impairs ADLS' and housework activities thus benifit from skilled PT Rehabilitation Potential: Good - Anticipated Interventions Patient/Client Instruction: Educate patient on: Condition, Plan of Care For the Purpose of:: To decrease pain, To increase ROM, To improve muscle performance and motor function, To improve ability to perform ADL's, To increase tolerance to activity/condition/position, To improve ability of physical actions for home/community/work/leisure, To improve health of tissue, To decrease soft tissue restriction, To increase flexibility/ROM, To improve ability to perform tasks related to life management Therapeutic Exercise to Include: Strength training, Postural training, Flexibilty training, Active ROM, Scapular Strength/Stabilization For the Purpose of:: To decrease pain, To increase ROM, To improve muscle performance and motor function, To improve ability to perform ADL's, To increase tolerance to activity/condition/position, To improve ability of physical actions for home/community/work/leisure, To improve health of tissue, To decrease soft tissue restriction, To improve ability to perform tasks related to life management TENS: Yes IF ES: Yes Cryotherapy (ice pack, ice massage): Yes Thermo therapy (hot pack): Yes Ultrasound (thermal/non thermal): Yes For the Purpose of:: To decrease pain, To improve nutrient delivery to tissue, To increase oxygenation perfusion, To decrease soft tissue restriction, To increase flexibility/ROM Thank you for the opportunity to evaluate your patient. For Medicare and Medicare HMO plans, please review the plan of care and approve it. It will need to be FAXED BACK to us at [phone] for Medicare purposes. For Medicare only, by signing this I certify the plan of care. Please let me know if there are questions or concerns regarding this plan of care. Physician Signature: Date:
--- NOTE | 2018-12-13 16:29 | HP.PTDCSUM_ITS ---
HP - PT D/C Summary It has been my pleasure to treat JOSE RAFAEL ARREDONDO under orders from Yovanny Rossi PA-C, for the diagnosis of SPRAIN OF OTHER SPECIFIED PARTS OF RIGHT KNEE for a total of 6 visit(s). Discharge Date: 12/13/18 Please see the following information for a summary of their discharge status. - Subjective Subjective: Patient doing alot. Patient is able to walk with no pain . Patient able to perform all ADL'S and housework tasks - Pain Right Knee Pain Intensity (Out of 10): 0 - Overall Improvement % Improvement: 90 - Objective Objective/Function: POSTURE: mild knee valgus. NEURO:unremarkable. PALAPTION: unremarkable. AROM: 0-130 SUPINE KNEE FLEXION. MMT: QUADS/HAMS 4/5 HIP 4- /5,ANKLE 4/5 - Goals Goal 1:: Indenpendant with HEP. Goal Progress: Goal Met Goal 2:: Patient to normalize gait with reciprocal pattern Goal 3:: Patient to increase strength quads/hams/hip 4/5 to improve function. Goal Progress: Goal Met Goal 4:: Patient be able to perform ADL'S and job demnads with limitations Goal Progress: Goal Met Goal 5:: Patient to improve LFES score by 5-10 points or greater to improve QOL. Goal Progress: Goal Met - Plan Plan: Continue to progress ROM/Strength of right LE. - D/C Information Discharge Comments: D/C TO HEP If there are questions or concerns regarding this patient's physical therapy, please feel free to call me at [phone]. Thank you for the referral of this patient. Sincerely, Blake Stevens, PT, Cert MDT, OCS
--- NOTE | 2018-12-13 17:03 | HP.PTDCS(2) ---
HP - PT D/C Summary (2) It has been my pleasure to treat JOSE RAFAEL ARREDONDO under orders from Yovanny Rossi PA-C, for the diagnosis of RIGHT SHOULDER PAIN for a total of 7 visit(s). Discharge Date: 12/13/18 Please see the following information for a summary of their discharge status. - Subjective Subjective: pain in shoulder is some better.. [place] activies - Overall Improvement % Improvement: 30 - Objective Objective/Function/Assessment: POSTURE: mild rounded foward head. PALAPTION: tender AC. AROM: shoulder flexion/abduction 160 degrees,ER 90 degrees. MMT: Supraspinatous 4-/5 ,pain infraspinatous 4-/5 mild pain deltoid 4-/5 mild pain. +impingement - Goals Patient Goals: Improve Mobility, Improve Function, Decrease Pain, Alleviate Pain, Walk Normal, Improve ROM, Sleep Normal Goal 1:: Independant with HEP Goal Progress: Goal Met Goal 2:: Patient to decrease right shoulder pain by 50% or greater to improve dfunction. Goal Progress: Progressing Goal 3:: Patient to improve strength 4/5 to improve function with [place] activities. Goal Progress: Progressing Goal 4:: Patient be able to perform ADLS and housewotk tasks with min limiations. Goal Progress: Progressing Goal 5:: Patient to improve QUICK DASH JULIAN score by 5 points or greater to improve QOL. Goal Progress: Goal Met - Plan Plan: D/C CONT WITH HEP. F/U WITH MD - D/C Information Discharge Comments: HEP AND RTD If there are questions or concerns regarding this patient's physical therapy, please feel free to call me at [phone]. Thank you for the referral of this patient. Sincerely, Blake Stevens, PT, Cert MDT, OCS
--- OUTSIDE RECORDS SUMMARY | 2019-02-15 03:14 | XMS RPT_ITS | Continuity of Care Document ---
:1950 Author Organization [facility] Address [address] [place] [address] Phone Care Team Providers Name Role Phone [...] all vaccines. will get eye exam in [place] pt has appt. Status: Active Encounter for [...] Status: Active Headache (R51, 784.0) Comments: rt orthodoxy, but has got these in past Status: [...] Refills: 1 Ordered:10-Sep-2018 Oren ASH, Peggy Kirkland [facility], Peggy Saldana Start : 10-Sep-2018 Active Atorvastatin Calcium 10 MG Oral Tablet 1 (one) Tablet daily for 0 days Quantity: 90 {Tablet} Refills: 3 Ordered:06-Jun-2018 Oren ASH, Peggy Kirkland [facility], Peggy Saldana Start : 06-Jun-2018 Active Ibuprofen 400 MG Oral Tablet 1 (one) Tablet bid prn for 0 days Quantity: 60 {Tablet} Refills: 0 Ordered:10-Sep-2018 Oren ASH, Peggy Kirkland [facility], Peggy Saldana Start : 10-Sep-2018 Active Lisinopril 2.5 MG Oral Tablet 1 (one) Tablet daily for 0 days Quantity: 30 {Tablet} Refills: 6 Ordered:13-Dec-2017 Oren ASH, Peggy Kirkland [facility], Peggy Saldana Start : 13-Dec-2017 Active Tylenol 325 MG Oral Capsule 1 (one) Capsule Capsule q8hrs prn for 0 days Quantity: 30 {Capsule} Refills: 0 Ordered:10-Sep-2018 Oren ASH, Peggy Kirkland [facility], Peggy Saldana Start : 10-Sep-2018 Active ACTONEL, 150MG (Oral Tablet) 1 Tablet monthly for 0 days Quantity: 4 {Tablet} Refills: 5 Ordered:13-Jan-2011 PAIEG Rees Start : 11-Jan-2011 End : 13-Jan-2011 [...] Quantity: 30 {Tablet} Refills: 3 Ordered:06-Jun-2018 Oren ASSEMBLY DETAILER, Peggy Kirkland ASSEMBLY DETAILER, Thuy Start : 05-Mar-2018 End : 06-Jun-2018 [...] Quantity: 14 {Capsule} Refills: 0 Ordered:06-Jun-2018 Sydneegeovany ASSEMBLY DETAILER, Peggy Kirkland CNP, Thuy Start : 06-Jun-2018 [...] Lead Electrocardiogram Result: Comments: See Note; NOTES: [facility] Cardiovascular Services [address] [place] [address] 12 Lead EKG 07/24/18 1737 MR#: [id number] Acct: [id number] Name: JOSE RAFAEL FELIX Rep #: [id number] : 1950 67 From: Calixto Ludwig MD [...] progre ssion Confirmed by OZIEL COLLINS, CALIXTO ([id number]), society editor BEENA JIN ([id number]) on 07/26/2018 1:39:09 PM Referred By: Ramiro Barney Confirmed By:CALIXTO LUDWIG MD 07/26/18 1339 Date Calixto Ludwig MD CC: Peggy Lott EMERGENCY SERVICES DIRECTOR; Ramiro Barney MD Signed 25-Jul-2018 Emergency Department Summary Result: Comments: See Note; NOTES: [facility] Medical Records Department [address] [place] [address] Emergency Department Summary 07/24/18 1852 MR#: [id number] Acct: [id number] Name: JOSE RAFAEL FELIX Rep #: [id number] : 1950 67 From: Ramiro Barney MD [...] 1. Dehydration. This note was generated with SmartCrowds dictation software. It may contain incorrect words, [...] your Primary Care Provider. Call [facility] ([phone]) or report to the closest Emergency Room. Call 911 if necessary. 07/25/18 0143 <Electronically signed by Ramiro mejia MD> Date Ramiro Barney MD Cosigner Signature (If Indicated): Date CC: Peggy Lott NP 18-Apr-2018 PT D/C Summary (1) Result: Comments: See Note; NOTES: [facility] Physical Therapy [address] [place] [address] Fax REHABILITATION SERVICES LENCHO AREVALO SUMMARY MR#: [id number] Acct: [id number] Name: JOSE RAFAEL FELIX Rep #: [id number] : 1950 67 From: Danny Calalhan DPT, OCS, CSCS Referring DrArt: Peggy Lott [...] strength program to walt mckeon at local [facility] Goal Progress: Goal Met Goal 4:: Work without increased pain Goal Progress: Goal Met - Plan Plan: D/C - D/C Information Discharge Comments: Ready to be done 100% better. Will f/u with doctor in May. If there are questions or concerns regarding this patient's physical therapy, please feel free to call me at [phone]. Thank you for the referral of this patient. Sincerely, Les Callahan DPT, OC <Electronically signed by Danny Callahan DPT, ABELARDO, CSCS> 04/18/18 0733 CC: Peggy Lott NP EBG Signed 24-Feb-2018 Inital Evaluation (1) - PT Result: Comments: See Note; NOTES: [facility] Physical Therapy [facility] [address] [place] [address]. [address] [place] [address] Fax REHABILITATION SERVICES INITIAL EVALUATION MR#: [id number] Acct: [id number] Name: JOSE RAFAEL FELIX Rep #: [id number] : 1950 67 From: Danny Callahan DPT, [...] appropriate strength program to earnest at local [facility] Goal Time Frame: 2-4 Weeks Goal [...] be FAXED BACK to us a t [phone] for Medicare purposes. Please let me know [...] 5 Views Result: Comments: See Note; NOTES: [facility] Imaging Services [address] [place] [address] Cerv Spine 4 or 5 Views MR#: [id number] Acct: [id number] Name: JOSE RAFAEL FELIX Rep #: [id number] : 1950 F 67 From: Hayden Fernandes MD PCP: Peggy Lott NP Status: REG CLI Study: Cerv Spine 4 or 5 Views Date of Exam: 02/19/18 Exam# [id number] Ordering Dr: Peggy Lott STUDY: X-RAY - [...] Service support , CC: Peggy Lott NP Uke Operator: Signed 24-Jan-2018 Parathyroid Scan Result: Comments: See Note; NOTES: [facility] Imaging Services [address] [place] [address] Parathyroid Scan MR#: [id number] Acct: [id number] Name: JOSE RAFAEL FELIX Rep #: [id number] : 1950 F 67 From: Vern Hendricks DO PCP: Peggy Lott NP Status: REG CLI Study: Parathyroid Scan Date of Exam: 01/24/18 Exam# [id number] Ordering Dr: ePggy Lott CLINICAL: 67-year-old female w ith history [...] Service support , CC: Peggy Lott NP Uke Operator: Signed 25-Dec-2017 Emergency Department Summary Result: Comments: See Note; NOTES: [facility] Medical Records Department [address] [place] [address] Emergency Department Summary 12/25/17 0838 MR#: [id number] Acct: [id number] Name: JOSE RAFAEL FELIX Rep #: [id number] : 1950 67 From: Ty Mckeon MD PCP: Peggy Lott NP Status: REG ER - ER Visit Summary Date of Service: 12/25/17 Chief Complaint: [] History of Present Illne ss: The patient is a 67 F [] Physical Examination: [] Test Results: [] Emergency Department Course and Treatment: [] Treatment Plan: [] Disposition: [] Impression: [] This note was generated wi Mibuzz.tv dictation software. It may contain incorrect words, [...] problems, contact your Primary Care Provider. Call [facility] ([phone]) or report to the closest [facility] Room. Call 911 if necessary. 12/25/17 0839 <Electronically signed by Ty Mckeon MD> Date Ty Mckeon MD Cosigner Signature (If I ndicated): Date CC: Peggy Lott NP 25-Dec-2017 Emergency Department Summary Result: Comments: See Note; NOTES: [facility] Medical Records Department [address] [place] [address] Emergency Department Summary 12/25/17 0627 MR#: [id number] Acct: [id number] Name: JOSE RAFAEL FELIX Scarlett Rep #: [id number] : 1950 67 From: Sue Friedman PCP: [...] Date Ty Mckeon MD cc: Peggy Lott EMERGENCY SERVICES DIRECTOR * Signed - ER Visit Summary Date [...] pain left-sided] This note was generated with Ruptureation software. It may contain incorrect words, spelling, [...] your Primary Care Provider. Call [facility] ([phone]) or report to the closest Emergency Room. Call 911 if necessary. 12/25/17 0750 <Electronically signed by Sue Friedman > Date Sue Friedman Cosigner Signature ( If Indicated): Date CC: Peggy Lott NP 25-Dec-2017 Emergency Department Summary Result: Comments: See Note; NOTES: [facility] Medical Records Department [address] [place] [address] Emergency Department Summary 12/25/17 0627 MR#: [id number] Acct: [id number] Name: JOSE RAFAEL FELIX Rep #: [id number] : 1950 67 From: Sue Friedman PCP: [...] pain left-sided] This note was generated with SmartCrowds dictation software. It may contain incorrect words, [...] without Cont Result: Comments: See Note; NOTES: [facility] Imaging Services [address] [place] [address] Abdomen/Pelvis without Cont MR#: [id number] Acct: [id number] Name: JOSE RAFAEL FELIX Rep # : [id number] : 1950 F 67 From: Tylor Amor MD PCP: Oren MARIAPeggy Status: REG ER Study: Abdomen/Pelvis without Cont Date of Exam: 12/25/17 Exam# [id number] Ordering Dr: Sue Friedman DY: CT ABDOMEN [...] Tylor Amor MD at 8:10 EST Tel [phone], Service support , CC: Peggy Lott EMERGENCY SERVICES DIRECTOR; Sue Friedman Uke Operator: Signed 27-Sep-2017 Dexa Bone Density Study (HP) Result: Comments: See Note; NOTES: [facility] Imaging Services [address] [place] [address] Dexa Bone Density Study (HP) MR#: [id number] Acct: [id number] Name: JOSE RAFAEL FELIX Rep #: [id number] : 1950 F 67 From: Tylor Amor MD PCP: Peggy Lott Status: REG CLI Study: Dexa Bone Density Study (HP) Date of Exam: 09/27/17 Exam# [id number] Ordering Dr: Peggy Lott STUD Y: DUAL [...] Tylor Amor MD at 12:36 EDT Tel [phone], Service support , CC: Peggy Lott Uke Operator: Signed 27-Sep-2017 SCREENING MAMM (CAD), BILAT Result: Comments: See Note; NOTES: [facility] Imaging Services [address] [place] [address] SCREENING MAMM (CAD), BILAT MR#: [id number] Acct: [id number] Name: JOSE RAFAEL FELIX Rep # : [id number] : 1950 F 67 From: Tylor Amor MD PCP: Peggy Lott Status: REG CLI Study: SCREENING MAMM (CAD), BILAT Date of Exam: 09/27/17 Exam# [id number] Ordering Dr: Peggy Lott MAMMOG EVELYN - [...] biopsy of a clinically suspicious abn ormality. [id number] Electronically Signed: Tylor Amor MD at 13:08 EDT Tel [phone], Service support , CC: Peggy Lott Uke Operator: Signed 03-Aug-2016 Bilat Scrn Digital AND CAD Result: Comments: See Note; NOTES: [facility] Imaging Services [address] [place] [address] Verdana 4d Bilat Scrn Digital AND CAD MR#: [id number] Acct: [id number] Name: SHAUNA FELIX Rep #: [id number] : 1950 F 65 From: Tylor Amor MD PCP: Silvana Simmons MD Status: REG CLI Study: Bilat Scrn Digital AND CAD Date of Exam: 08/03/16 Exam# [id number] Ordering Dr: Peggy Lott MAMMOGRAPHY - BILATERAL [...] delay biopsy of a clinically suspicious abnormality. [id number] Electronically Signed: Tylor Amor MD 201 05/05/07 at 15:56 EDT Tel [phone], Service support [phone], CC: Peggy Lott; Silvana Simmons MD Uke Operator: Signed 26-Jul-2015 Emergency Department Summary Result: Comments: See Note; NOTES: [facility] Medical Records Department [address] [place] [address] Emergency Department Summary MR#: [id number] Acct: [id number] Name: JOSE RAFAEL MILES Rep #: [id number] : 1950 64 From: Ty Mckeon MD PCP: Silvana Simmons MD Status: [facility] ER DATE OF SERVICE: 07/26/2015 HISTORY OF [...] C: Erick Eduardo MD T: NTS JOB: [id number] 07/26/15 2321 <Electronically signed by Ty Mckeon MD> Date Ty Mckeon MD Co signer Signature (If Indicated): Date CC: Silvana Simmons MD; Calixto Eduardo MD Date Dictated: 07/26/152258 Date Transcribed: 07/26/152258 Uke Operator: Signed 26-Jul-2015 Discharge Instruction Result: Comments: See Note; NOTES: [facility] Medical Records Department [address] [place] [address] Discharge Instruction 07/26/15 2300 MR#: [id number] Acct: [id number] Name: JOSE RAFAEL FELIX Rep #: [id number] : 1950 64 From: Ty Mckeon MD [...] problems, contact your doctor. Call [facility] ([phone]) or report to the closest Emergency Room. Call 911 if necessary. 07/26/15 2301 <Electronically signed by Ty Hyde> Date Ty Mckeon MD Cosigner Signature (If Indicated): Date CC: Silvana Simmons MD 30-Jun-2015 Bilat Scrn Digital AND CAD Result: Comments: See Note; NOTES: [facility] Imaging Services [address] [place] [address] Breast Imaging Report MR#: [id number] Acct: [id number] Name: JOSE RAFAEL FELIX Rep #: [id number] : 1950 F 64 From: Tylor Amor MD PCP: Silvana Simmons MD Status: REG CLI Study: Bilat Scrn Digital AND CAD Date of Exam: 06/30/15 Exam# [id number] Ordering Dr: Obi Simmons MD MAMMOGRAPHY - [...] Tylor anguiano MD at 11:01 EDT Tel [phone], Service support [phone], CC: Silvana Simmons MD Uke Operator: Signed 30-Jun-2015 Dexa Bone Density Study (HP) Result: Comments: See Note; NOTES: [facility] Imaging Services [address] [place] [address] Bone Density Report MR#: [id number] Acct: [id number] Name: JOSE RAFAEL FELIX Rep #: [id number] : 1950 F 64 From: Tylor Amor MD PCP: Silvana Simmons MD Status: REG CLI Study: Dexa Bone Density Study (HP) Date of Exam: 06/30/15 Exam# [id number] Ordering Dr: Obi Simmons MD STUDY: DUAL [...] Tylor Amor MD at 15:00 EDT Tel [phone], Service support [phone], CC: Silvana Simmons MD Uke Operator: Signed 14-Nov-2014 Echocardiogram Complete Result: Comments: See Note; NOTES: [facility] Cardiovascular Services [address] [place] [address] Echo Complete 11/14/14 1048 MR#: [id number] Acct: [id number] Name: ANTWAN FELIX Rep #: [id number] : 1950 64 From: Capo Powell MD Attending Dr: Silvana Simmons MD Status: REG CLI Ordering Dr: Silvana Simmons MD Date: 11/14/14 Location: [facility] Sex: F C Admitted: Aisha raekimberylcordelia This was a 2D Doppler, Color Flow [...] Dictated: 11/14/14 1048 Date Transcribed: 11/14/14 1406 Uke Operator: Signed 04-Nov-2014 12 Lead Electrocardiogram Result: Comments: See Note; NOTES: [facility] Cardiovascular Services [address] [place] [address] 12 Lead EKG 11/02/14 1128 MR#: [id number] Acct: [id number] Name: VANITA FELIX Scarlett Rep #: [id number] : 1950 64 From: Capo Powell MD [...] ECG Confirmed by CAPO POWELL MD ([id number]), society editor BEENA JIN (56) on 11/04/2014 10:22:44 AM Referred By: JANET Lema B y:CAPO POWELL MD 11/04/14 1022 Date Capo Powell MD CC: Silvana Simmons MD Date Dictated: 11/02/141127 Date Transcribed: 11/02/141127 Uke Operator: Signed Family History Unknown Family Member Name [...] Height 0 in Head Circumference 0.00 cm 54-Gji-732808:40 Pulse 64 /min Comments: Pattern: Regular Respiration Rate 14 /min Comments: Pattern: Undefined BP Systolic 114 mm[Hg] Comments: Patient Position: Sitting; Cuff Location: Undefined; Cuff Size: Undefined BP Diastolic 76 mm[Hg] Comments: Patient Position: Sitting; Cuff Location: Undefined; Cuff Size: Undefined Weight 141.125 lb Height 0 in Head Circumference 0.00 cm Results Date Description Value Details 59-Fhg-420585:35 Basic Metabolic Profile (BMP) Comments: [facility] [address] [place], [place], [id number] GAP 8 (Normal) Range: 5-15 CO2 24.0 [...] Comments: Please note revised GLUCOSE reference range nchymahbs66/02/2018. 31-Kip-336694:35 CBC W/Diff, Automated Comments: [facility] [address], [address] Absolute Lymph 0.62 {X10_3/ul} (Abnormal) [...] 4.2-5.4 WBC 5.9 K/mm3 (Normal) Range: 4.4-11.0 93-Xcu-692393:53 URINE EPIFANIO CULTURE-IDENTIFICATN Comments: PATIENT NOT FASTINGPERFORMED BY: [facility] Cuwwuy2082 [facility] [id number] Information: SRC:FRANK (43321) Antimicrobial MIHEAD (Normal) Comments: S = Susceptible; [...] mL (Abnormal) Urine Final report Culture,Comprehensive (Abnormal) 41-Otr-780921:56 Urinalysis, Office (59809) UA - LEUKOCYTE ESTERASE Moderate (Normal) UA - NITRITE Positive (Normal) URINE UROBILINGN RONALD TIMED Normal mg/dL (Normal) UA - PROTEIN Negative mg/dL (Normal) UA - PH 6.5 (Normal) UA - BLOOD Non Hemolyzed Moderate (Normal) UA - SPECIFIC GRAVITY 1.020 (Normal) UA - KETONES Negative mg/dL (Normal) UA - BILIRUBIN Negative (Normal) UA - GLUCOSE Negative (Normal) 2-Bzc-382601:25 Microscopic Examination Comments: PATIENT WAS FASTINGPERFORMED BY: [facility] [id number] Bacteria Many (Abnormal) Mucus Threads Present (Normal) Cast Type Hyaline casts (Normal) Casts Present {/lpf} (Abnormal) Epithelial Cells (non renal) 0-10 {/hpf} (Normal) Range: 0 - 10 RBC 0-2 {/hpf} (Normal) Range: 0 - 2 WBC >30 {/hpf} (Abnormal) Range: 0 - 5 1-Out-026906:25 MICROALBUMIN: CREATININE RATIO Comments: PATIENT WAS FASTINGPERFORMED BY: [facility] [id number] (62915) AND (12244) Alb/Creat Ratio 27.0 {mg/g_creat} (Normal) Range: 0.0-30.0 Albumin, Urine 33.5 ug/mL (Normal) Creatinine, Urine 124.3 mg/dL (Normal) 2-Xnf-683717:25 URINALYSIS (79989) Comments: PATIENT WAS FASTINGPERFORMED BY: [facility] [id number] Microscopic Examination See below: (Normal) Comments: Microscopic was indicated and was performed. Nitrite, Urine Positive (Abnormal) Urobilinogen,Semi-Qn 0.2 mg/dL (Normal) Range: 0.2-1.0 Bilirubin Negative (Normal) Occult Blood 1+ (Abnormal) Ketones Negative (Normal) Glucose Negative (Normal) Protein Negative (Normal) WBC Esterase 2+ (Abnormal) Appearance Clear (Normal) Urine-Color Yellow (Normal) pH 5.0 (Normal) Range: 5.0-7.5 Specific [place] 1.020 (Normal) Range: 1.005-1.030 1-Kgu-904975:25 TSH (53806) Comments: PATIENT WAS FASTINGPERFORMED BY: [facility] [facility] [id number] TSH 1.210 {uIU/mL} (Normal) Range: 0.450-4.500 8-Icl-727076:25 Metabolic Panel, Comprehensive Comments: PATIENT WAS FASTINGPERFORMED BY: [facility] [facility] [id number] (99719) ALT (SGPT) 14 [iU]/L (Normal) Range: 0-32 [...] 8-27 Glucose 82 mg/dL (Normal) Range: 65-99 4-Bke-187456:25 CBC & PLATELETS (AUTO) (94299) Comments: PATIENT WAS FASTINGPERFORMED BY: [facility] HospitalJsmtig8966 [facility] [id number] Platelets 323 {x10E3/uL} (Normal) Range: 150-379 RDW 14.0 % (Normal) Range: 12.3-15.4 MCHC 34.0 g/dL (Normal) Range: 31.5-35.7 MCH 29.9 pg (Normal) Range: 26.6-33.0 MCV 88 fL (Normal) Range: 79-97 Hematocrit 40.0 % (Normal) Range: 34.0-46.6 Hemoglobin 13.6 g/dL (Normal) Range: 11.1-15.9 RBC 4.55 {x10E6/uL} (Normal) Range: 3.77-5.28 WBC 4.7 {x10E3/uL} (Normal) Range: 3.4-10.8 :25 LIPID PANEL (40817) Comments: PATIENT WAS FASTINGPERFORMED BY: [facility] LabsP[facility] HospitalPdgpuq6482 [facility] [id number] LDL/HDL Ratio 1.1 {ratio} (Normal) Range: 0.0-3.2 Comments: LDL/HDL Ratio Men Women 1/2 Avg.Risk 1.0 1.5 Av g.Risk 3.6 3.2 2X Avg.Risk 6.2 5.0 3X Avg.Risk 8.0 6.1 LDL Cholesterol Calc 81 mg/dL (Normal) Range: 0-99 VLDL Cholesterol Marysol 16 mg/dL (Normal) Range: 5-40 HDL Cholesterol 72 mg/dL (Normal) Triglycerides 78 mg/dL (Normal) Range: 0-149 Cholesterol, Total 169 mg/dL (Normal) Range: 100-199 8-Gcr-723925:13 Urinalysis, Office (41761) UA - LEUKOCYTE ESTERASE Negative (Normal) UA - NITRITE Negative (Normal) URINE UROBILINGN RONALD TIMED Normal mg/dL (Normal) UA - PROTEIN Negative mg/dL (Normal) UA - PH 6 (Abnormal) UA - BLOOD Hemolyzed Small (Normal) UA - SPECIFIC GRAVITY 1.025 (Normal) UA - KETONES Negative mg/dL (Normal) UA - BILIRUBIN Negative (Normal) UA - GLUCOSE Negative (Normal) :51 CBC & PLATELETS (AUTO) (76884) Comments: PATIENT NOT FASTINGPERFORMED BY: [facility] HospitalAqmufd8224 [facility] [id number] Platelets 291 {x10E3/uL} (Normal) Range: 150-379 RDW 13.8 % (Normal) Range: 12.3-15.4 MCHC 33.2 g/dL (Normal) Range: 31.5-35.7 MCH 29.7 pg (Normal) Range: 26.6-33.0 MCV 90 fL (Normal) Range: 79-97 Hematocrit 40.7 % (Normal) Range: 34.0-46.6 Hemoglobin 13.5 g/dL (Normal) Range: 11.1-15.9 RBC 4.54 {x10E6/uL} (Normal) Range: 3.77-5.28 WBC 5.7 {x10E3/uL} (Normal) Range: 3.4-10.8 :51 PARATHORMONE (10233) Comments: PATIENT NOT FASTINGPERFORMED BY: [facility] Kzuvsd8773 [facility] [id number] PTH, Intact 66 pg/mL (Abnormal) Range: 15-65 :00 Urinalysis, Office (51191) UA - LEUKOCYTE ESTERASE Trace (Normal) UA [...] Complete Comments: How was Urine Obtained? CLEAN [facility] [address] [place], [place], [id number] MUCUS, URINE 0 SEEN {/hpf} (Normal) BACTERIA [...] (Normal) CLARITY Clear (Normal) COLOR Straw (Normal) 27-Xhf-26629:58 CBC W/Diff, Automated Comments: [facility] [address] [place], [place], [id number] Absolute Lymph 1.16 {X10_3/ul} (Normal) Range: 0.83-4.51 [...] 4.2-5.4 WBC 3.2 K/mm3 (Abnormal) Range: 4.4-11.0 82-Ljq-99538:58 Comprehensive Metabolic Profil Comments: [facility] [address], [address] GAP 8 (Normal) Range: 5-15 CO2 28.0 mmol/L (Normal) Range: 21.0-32.0 CL 104 mmol/L (Normal) Range: 98-107 K 4.0 mmol/L (Normal) Range: 3.5-5.1 NA 140 mmol/L (Normal) Range: 136-145 T BILI 0.90 mg/dL (Normal) Range: 0.20-1.00 ALT 25 U/L (Normal) Range: 13-56 Comments: Please note revised ALT reference range ydldrfpku69/28/2018. ALK P 66 U/L (Normal) Range: 45-117 [...] 7-18 GLU 96 mg/dL (Normal) Range: 70-110 38-Iaf-73925:58 Lipase Comments: [facility] [address] [place], [address] LIPASE 211 U/L (Normal) Range: 73-393 6-Pqq-831758:30 MICROALBUMIN: CREATININE RATIO Comments: PATIENT NOT FASTINGPERFORMED BY: [address] [id number] (38625) AND (25457) Microalb/Creat Ratio 3.2 {mg/g_creat} (Normal) Range: 0.0-30.0 Microalbumin, Urine 4.7 ug/mL (Normal) Creatinine, Urine 145.6 mg/dL (Normal) 5-Vps-742410:30 URINALYSIS (77742) Comments: PATIENT NOT FASTINGPERFORMED BY: [address] [id number] Microscopic Examination MICNIP (Normal) Comments: Microscopic not indicated and not performed. Nitrite, Urine Negative (Normal) Urobilinogen,Semi-Qn 0.2 mg/dL (Normal) Range: 0.2-1.0 Bilirubin Negative (Normal) Occult Blood Negative (Normal) Ketones Trace (Abnormal) Glucose Negative (Normal) Protein Negative (Normal) WBC Esterase Negative (Normal) Appearance Clear (Normal) Urine-Color Yellow (Normal) pH 5.5 (Normal) Range: 5.0-7.5 Specific [place] 1.022 (Normal) Range: 1.005-1.030 2-Lun-101545:30 TSH (THYROID STIMULATING Comments: PATIENT NOT FASTINGPERFORMED BY: [facility]6[address] [facility] [id number] HORMONE) (92284) TSH 0.801 {uIU/mL} (Normal) Range: 0.450-4.500 0-Kne-679557:30 CBC, PLATELETS & AUT DIFF Comments: PATIENT NOT FASTINGPERFORMED BY: [address] [id number] Information: [id number], 484962 (54871) Immature Grans (Abs) 0.0 {x10E3/uL} (Normal) Range: [...] 3.77-5.28 WBC 5.6 {x10E3/uL} (Normal) Range: 3.4-10.8 6-Igh-496566:30 METABOLIC PANEL, COMPREHENSIVE Comments: PATIENT NOT FASTINGPERFORMED BY: [facility] HospitalYidsrb8664 [facility] [id number] (23714) ALT (SGPT) 14 [iU]/L (Normal) Range: 0-32 [...] Glucose, Serum 96 mg/dL (Normal) Range: 65-99 42-Ivb-498895:37 Lipid Panel (78553) Comments: around April 2017; PATIENT WAS FASTINGPERFORMED BY: [facility] Special[facility] HospitalInomif8770 [facility] [id number] LDL/HDL Ratio 1.1 {ratio_units} (Normal) Range: 0.0-3.2 Comments: LDL/HDL Ratio Men Women 1/2 Avg.Risk 1.0 1.5 Av g.Risk 3.6 3.2 2X Avg.Risk 6.2 5.0 3X Avg.Risk 8.0 6.1 LDL Cholesterol Calc 77 mg/dL (Normal) Range: 0-99 VLDL Cholesterol Marysol 23 mg/dL (Normal) Range: 5-40 HDL Cholesterol 72 mg/dL (Normal) Triglycerides 116 mg/dL (Normal) Range: 0-149 Cholesterol, Total 172 mg/dL (Normal) Range: 100-199 45-Odg-277953:37 POTASSIUM SERUM (47591) Comments: Order Date: 02/13/17Order Info: 2823-3 - Brittnee Date: 02/13/17Order Info: 2823-3 - [facility] [address] [place], [place], [address] K 4.1 mmol/L (Normal) Range: 3.5-5.1 80-Juk-786243:20 Microscopic Examination Comments: PATIENT WAS FASTINGPERFORMED BY: [facility] Special[facility] HospitalNagpry3580 [facility] [id number] Bacteria None seen (Normal) Mucus Threads Present (Normal) Epithelial Cells (non renal) 0-10 {/hpf} (Normal) Range: 0 - 10 RBC None seen {/hpf} (Normal) Range: 0 - 2 WBC 0-5 {/hpf} (Normal) Range: 0 - 5 06-Slc-344264:20 METABOLIC PANEL, COMPREHENSIVE Comments: PATIENT WAS FASTINGPERFORMED BY: LabCoPSE&G Children's Specialized HospitalRedgiz5394 [facility] [id number] (15123) ALT (SGPT) 17 [iU]/L (Normal) Range: 0-32 [...] Glucose, Serum 81 mg/dL (Normal) Range: 65-99 05-Wsl-184381:20 URINALYSIS, W/ MICRO (42241) Comments: PATIENT WAS FASTINGPERFORMED BY: Genetics Squared70 [facility] [id number] Microscopic Examination See below: (Normal) Comments: Microscopic was indicated and was performed. Microscopic Examination MICRON (Normal) Comments: Microscopic follows if indicated. Nitrite, Urine Negative (Normal) Urobilinogen,Semi-Qn 0.2 mg/dL (Normal) Range: 0.2-1.0 Bilirubin Negative (Normal) Occult Blood Negative (Normal) Ketones Negative (Normal) Glucose Negative (Normal) Protein Negative (Normal) WBC Esterase Negative (Normal) Appearance Clear (Normal) Urine-Color Yellow (Normal) pH 6.5 (Normal) Range: 5.0-7.5 Specific [place] 1.013 (Normal) Range: 1.005-1.030 01-Ipp-745619:20 CBC with auto diff (47097) Comments: PATIENT WAS FASTINGPERFORMED BY: Lango6370 [facility] [id number] Immature Grans (Abs) 0.0 {x10E3/uL} (Normal) Range: [...] 6.1 {x10E3/uL} (Normal) Range: 3.4-10.8 :20 TSH (18343) Comments: PATIENT WAS FASTINGPERFORMED BY: Zilker LabsPSE&G Children's Specialized HospitalPjdyfm1957 [facility] [id number] TSH 0.689 {uIU/mL} (Normal) Range: 0.450-4.500 :20 MICROALBUMIN: CREATININE RATIO Comments: PATIENT WAS FASTINGPERFORMED BY: [facility]ultUniversity [facility] Health6370 [facility] [id number] (50317) AND (86655) Microalb/Creat Ratio <6.5 {mg/g_creat} (Normal) Range: 0.0-30.0 Microalbumin, Urine <3.0 ug/mL (Normal) Creatinine, Urine 46.2 mg/dL (Normal) :40 HEPATIC FUNCTION PANEL Comments: PATIENT WAS FASTINGPERFORMED BY: Zilker LabsPSE&G Children's Specialized HospitalJqocwp3918 [facility] [id number] (69177) ALT (SGPT) 38 [iU]/L (Abnormal) Range: 0-32 AST (SGOT) 35 [iU]/L (Normal) Range: 0-40 Alkaline Phosphatase, S 65 [iU]/L (Normal) Range: 39-117 Bilirubin, Direct 0.14 mg/dL (Normal) Range: 0.00-0.40 Bilirubin, Total 0.4 mg/dL (Normal) Range: 0.0-1.2 Albumin, Serum 4.3 g/dL (Normal) Range: 3.6-4.8 Protein, Total, Serum 6.8 g/dL (Normal) Range: 6.0-8.5 :40 LIPID PANEL (08056) Comments: PATIENT WAS FASTINGPERFORMED BY: [facility] Ypsyhf0110 [facility] [id number] LDL/HDL Ratio 1.2 {ratio_units} (Normal) Range: 0.0-3.2 Comments: LDL/HDL Ratio Men Women 1/2 Avg.Risk 1.0 1.5 Av g.Risk 3.6 3.2 2X Avg.Risk 6.2 5.0 3X Avg.Risk 8.0 6.1 LDL Cholesterol Calc 84 mg/dL (Normal) Range: 0-99 VLDL Cholesterol Marysol 20 mg/dL (Normal) Range: 5-40 HDL Cholesterol 73 mg/dL (Normal) Triglycerides 98 mg/dL (Normal) Range: 0-149 Cholesterol, Total 177 mg/dL (Normal) Range: 100-199 8-Xyz-819153:45 Culture, Urine Comments: [facility] [address], [address] CUUR See Note (Normal) Comments: Urine CultureRESULTS [...] >=320 R(NF) indicates non- formulary drug at [facility]. Approval by Infectious Disease Specialist required before non-formulary drugs may be ordered and/or dispensed. 52-Jnr-145828:06 Urinalysis, Office (61072) UA - LEUKOCYTE ESTERASE Trace (Normal) UA - NITRITE Positive (Normal) URINE UROBILINGN RONALD TIMED Normal mg/dL (Normal) UA - PROTEIN Negative mg/dL (Normal) UA - PH 6 (Abnormal) UA - BLOOD Hemolyzed Small (Normal) UA - SPECIFIC GRAVITY 1.025 (Normal) UA - KETONES Negative mg/dL (Normal) UA - BILIRUBIN Negative (Normal) UA - GLUCOSE Negative (Normal) 00-Teu-364219:13 CBC, Platelets & Auto Comments: PATIENT WAS FASTINGPERFORMED BY: LabCoPSE&G Children's Specialized HospitalNiwdki6049 [facility] [id number] Information: [id number] Diff (53376) Immature Grans (Abs) 0.0 {x10E3/uL} (Normal) Range: [...] 3.77-5.28 WBC 7.2 {x10E3/uL} (Normal) Range: 3.4-10.8 71-Zwr-119670:13 TSH (58610) Comments: PATIENT WAS FASTINGPERFORMED BY: [facility]6370 [facility] [id number] TSH 0.907 {uIU/mL} (Normal) Range: 0.450-4.500 06-Jfh-995648:13 Lipid Panel (76231) Comments: PATIENT WAS FASTINGPERFORMED BY: [facility]6370 [facility] [id number] LDL/HDL Ratio 2.2 {ratio_units} (Normal) Range: 0.0-3.2 [...] Cholesterol, Total 253 mg/dL (Abnormal) Range: 100-199 28-Rxk-164285:13 Metabolic Panel, Comprehensive Comments: PATIENT WAS FASTINGPERFORMED BY: [facility]6370 [facility] [id number] (57552) ALT (SGPT) 25 [iU]/L (Normal) Range: 0-32 [...] Glucose, Serum 92 mg/dL (Normal) Range: 65-99 62-Mkx-267417:58 URINE EPIFANIO CULTURE-RONALD COL Comments: Forward to Dr Eduardo, Urology, [place], [place]; PATIENT NOT FASTINGPERFORMED BY: [employer] [facility] [address] [place] [place] [id number] Information: SRC:URC [id number] COUNT (70987) Result 1 MUG (Normal) Comments: Mixed urogenital flora5,000 Colonies/mL Urine Culture,Comprehensive Final report (Normal) 36-Waf-468610:55 Urinalysis, Office (06042) UA - GLUCOSE Negative (Normal) UA - BILIRUBIN Negative (Normal) UA - KETONES Negative mg/dL (Normal) UA - SPECIFIC GRAVITY 1.025 (Normal) UA - BLOOD Hemolyzed Trace (Normal) UA - PH 6 (Abnormal) UA - PROTEIN Negative mg/dL (Normal) URINE UROBILINGN RONALD TIMED Normal mg/dL (Normal) UA - NITRITE Negative (Normal) UA - LEUKOCYTE ESTERASE Negative (Normal) 4-Usn-232743:01 Vitamin D Hydroxy (69910) Comments: PATIENT NOT FASTINGPERFORMED BY: [employer] [facility] Xotfgy[address] [place] [id number] Vitamin D, 25-Hydroxy 33.2 ng/mL (Normal) Range: 30.0-100.0 Comments: Vitamin D deficiency has been defined by the [place] of[place]icine and an Endocrine Society practice guideline as alevel of serum 25-OH vitamin D less than 20 ng/mL (1,2).The Endocrine Society went on to further define vitamin Dinsufficiency as a level between 21 and 29 ng/mL (2).1. IOM ([place] of Medicine). 2010. Dietary reference intakes for calcium and D. [place]: The National Academies Press.2. Mica MF, Dami LION, Sheri CHAVEZ, et al. Evaluation, treatment, and prevention of vitamin D deficiency: an Endocrine Society clinical practice guideline. JCEM. 2010; 96(7):1911-30. :01 SPEP (13924) Comments: PATIENT NOT FASTINGPERFORMED BY: [facility] Ccbqdi[address] Rolon RoadVinPerfectblin [place] [id number] Information: [id number] Please note: SPRCS (Normal) Comments: Protein electrophoresis scan will follow via computer, mail, orcourier delivery. A/G Ratio 1.3 (Normal) Range: 0.7-2.0 Globulin, Total 3.2 g/dL (Normal) Range: 2.0-4.5 M-Faisal Not Observed g/dL (Normal) Gamma Globulin 1.1 g/dL (Normal) Range: 0.5-1.6 Beta Globulin 1.1 g/dL (Normal) Range: 0.6-1.3 Uowgd-4-Fnyqznjl 0.8 g/dL (Normal) Range: 0.4-1.2 Ltymx-9-Lxsrhgsw 0.3 g/dL (Normal) Range: 0.1-0.4 Albumin 4.2 g/dL (Normal) Range: 3.2-5.6 Protein, Total, Serum 7.4 g/dL (Normal) Range: 6.0-8.5 :01 TSH (46322) Comments: PATIENT NOT FASTINGPERFORMED BY: [facility] Anmwnz6706 [address] RoadDublin [place] [id number] TSH 0.956 {uIU/mL} (Normal) Range: 0.450-4.500 :01 PARATHORMONE (33242) Comments: PATIENT NOT FASTINGPERFORMED BY: [facility] Fwqycn232[address]on RoadDublin [place] [id number] PTH, Intact 53 pg/mL (Normal) Range: 15-65 :01 SED RATE ERYTHROCYTE (66421) Comments: PATIENT NOT FASTINGPERFORMED BY: [facility]6370 [facility] [id number] Sedimentation Rate-Westergren 6 mm/h (Normal) Range: 0-40 :01 ALKALINE PHOSPHATASE (33603) Comments: PATIENT NOT FASTINGPERFORMED BY: [facility]6370 [facility] [id number] Alkaline Phosphatase, S 75 [iU]/L (Normal) Range: 39-117 :01 C-REACTIVE PROTEIN (86204) Comments: PATIENT NOT FASTINGPERFORMED BY: LabUniversity [facility]6370 [facility] [id number] C-Reactive Protein, Quant 1.5 mg/L (Normal) Range: 0.0-4.9 :10 Urinalysis, Complete Comments: Order Date: 07/26/15How was Urine Obtained? CLEAN CATCHTest performed at:[facility] [address] [place] [address] MUCUS, URINE 0 SEEN {/hpf} [...] Basic Metabolic Profile (BMP) Comments: Test performed at:[facility] [address] [place] [address] GAP 6 (Normal) Range: 5-15 [...] Comments: Please note revised CREATININE reference range wuoyitwsh94/22/2015. BUN 24 mg/dL (Abnormal) Range: 7-18 GLU 91 mg/dL (Normal) Range: 70-110 20-Vui-557052:26 CBC W/Diff, Automated Comments: Test performed at:[facility] [address] [address] Absolute Lymph 1.55 {X10_3/ul} (Normal) Range: 0.83-4.51 [...] Panel (7) Comments: PATIENT WAS FASTINGPERFORMED BY: Jike XueyuanPSE&G Children's Specialized HospitalUjndod0976 [facility] [id number] ALT (SGPT) 17 [iU]/L (Normal) Range: 0-32 AST (SGOT) 24 [iU]/L (Normal) Range: 0-40 Alkaline Phosphatase, S 63 [iU]/L (Normal) Range: 39-117 Bilirubin, Direct 0.16 mg/dL (Normal) Range: 0.00-0.40 Bilirubin, Total 0.7 mg/dL (Normal) Range: 0.0-1.2 Albumin, Serum 4.6 g/dL (Normal) Range: 3.6-4.8 Protein, Total, Serum 7.2 g/dL (Normal) Range: 6.0-8.5 :19 Lipid Panel With LDL/HDL Comments: PATIENT WAS FASTINGPERFORMED BY: Zilker LabsPSE&G Children's Specialized HospitalZarcvc9666 [facility] [id number] Information: [id number] Ratio LDL/HDL Ratio 2.6 {ratio_units} (Normal) Range: [...] Cholesterol, Total 257 mg/dL (Abnormal) Range: 100-199 69-Pdq-102728:14 Culture, Urine Comments: Test performed at:[facility] [address] [place] [address] CUUR See Note (Normal) Comments: [...] $ <=20 S(NF) indicates non-formulary drug at [facility]. Approval by Infectious Disease Specialist required before non- formulary drugs may be ordered and/or dispensed. 30-Ods-350481:14 Urinalysis, Routine (Dipstick) Comments: How was Urine Obtained? CLEAN CATCHTest performed at:[facility] [address] [place] [address] LEUK ESTERASE 100 /ul (Abnormal) OCCULT BLOOD-UR 10 /ul (Abnormal) NITRITE UR Positive (Abnormal) UROBILI Normal mg/dL (Normal) PROT DIPSTX Negative mg/dL (Normal) pH UR 7.0 (Normal) Range: 5.0 - 8.0 SP.GR. DIPSTX 1.010 (Normal) Range: 1.002-1.030 KETONE UR Negative mg/dL (Normal) BILIRUBIN URINE Negative mg/dL (Normal) GLUCOSE, UR Normal mg/dL (Normal) CLARITY Sl. Cloudy (Normal) COLOR Yellow (Normal) 92-Hdm-178650:16 URINE EPIFANIO CULTURE (RONALD Comments: PATIENT NOT FASTINGPERFORMED BY: LabCoPSE&G Children's Specialized HospitalRispox3212 [facility] [id number] Information: SRC:KARAN [id number] COL COUNT) (95343) Result 1 CNSNSS (Abnormal) Comments: Coagulase negative [...] S Urine Final report Culture,Comprehens (Abnormal) tito 1-Kdg-131459:25 Culture, Urine Comments: Test performed at:[facility] [address] [place] [address] CUUR See Note (Normal) Comments: Order Date: [...] $ <=20 S(NF) indicates non-formulary drug at [facility]. Approval by Infectious Disease Specialist required before non-formulary drugs may be ordered and/or dispensed. 86-Ovo-39052:24 MICROALBUMIN: CREATININE RATIO Comments: PATIENT WAS FASTINGPERFORMED BY: [facility] Xxdrjp6121 [facility] [id number] (55411) AND (92851) Microalb/Creat Ratio 1.3 {mg/g_creat} (Normal) Range: 0.0-30.0 Microalbumin, Urine 1.5 ug/mL (Normal) Range: 0.0-17.0 Creatinine, Urine 118.7 mg/dL (Normal) Range: 15.0-278.0 :24 METABOLIC PANEL, COMPREHENSIVE Comments: PATIENT WAS FASTINGPERFORMED BY: [facility] Esgwzp2441 [facility] [id number] (17809) ALT (SGPT) 22 [iU]/L (Normal) Range: 0-32 [...] mg/dL (Normal) Range: 65-99 :24 LIPID PANEL (07437) Comments: PATIENT WAS FASTINGPERFORMED BY: Re[facility]ultUniversity [facility] Health6370 [facility] [id number] LDL/HDL Ratio 2.6 {ratio_units} (Normal) Range: 0.0-3.2 Comment: LDLCOM (Normal) Comments: Possible Familial Hypercholesterolemia. FH should be suspected whenfasting LDL cholesterol is above 189 mg/dL or non-HDL cholesterolis above 219 mg/dL. A family history of high cholesterol and heartdise ase in 1st degree relatives should be collected. J Clin Guttbzd7764;5:133-140 LDL Cholesterol Calc 206 mg/dL (Abnormal) Range: 0-99 VLDL Cholesterol Marysol 16 mg/dL (Normal) Range: 5-40 HDL Cholesterol 79 mg/dL (Normal) Comments: According to ATP-III Guidelines, HDL-C >59 mg/dL is considered anegative risk factor for CHD. Triglycerides 82 mg/dL (Normal) Range: 0-149 Cholesterol, Total 301 mg/dL (Abnormal) Range: 100-199 40-Mzp-56172:24 CBC WITH MANUAL DIFF Comments: PATIENT WAS FASTINGPERFORMED BY: Missingames Adouua4388 [facility] [id number] Information: [id number] (93260) Immature Grans (Abs) 0.0 {x10E3/uL} (Normal) Range: [...] 3.77-5.28 WBC 4.8 {x10E3/uL} (Normal) Range: 3.4-10.8 3-Vzf-153013:31 BILAT SCRN DIGITAL & CAD Radiology Report [...] Amor M.D.January 31, 2013 at 1:16:07 PM [id number] Signed GP/GP If you are the referring physician and wou ld like to consult with theradiologist who provided this interpretation, please contact Yan Enriquez at [phone]. If this radiologist is unavailable, youwill be directed to another radiol ogist to assist. If you are a patient with a question regarding this report, pleasecontactyour referring physician directly. Professional Interpretation Provided By: Fatimah, Phone ,Fa x [phone] These documents contain legally protected and confidential [...] 01/31/13 1326 Sign by: Tylor Amor MD 8-Emz-576855:31 DEXA BONE DENSITY STUDY (HP) Radiology Report [...] as outlined above, according toWsw[facility] issaquahHealth Organization ([facility]) criteria. Fracture risk is [...] Amor M.D.January 31, 2013 at 1:13:05 PM [id number] Signed GP/GP If you are the referring ph ysician and would like to consult with theradiologist who provided this interpretation, please contact Yan Enriquez at [phone]. If this radiologist is unavailable, youwill be directed to another radiologist to assist. If you are a patient with a question regarding this report, pleasecontactyour referring physician directly. Professional Interpretation Provided By: [employer], Phone , These documents contain legally protected [...] 01/31/13 1318 Sign by: Tylor Amor MD 49-Tao-67541:51 LIPID PANEL (66741) Comments: PATIENT WAS FASTINGPERFORMED BY: Zilker LabsPSE&G Children's Specialized HospitalWhivon1836 [facility] [id number] Information: [id number] LDL Cholesterol Calc 162 mg/dL (Abnormal) Range: 0-99 LDL/HDL Ratio 2.7 {ratio_units} (Normal) Range: 0.0-3.2 VLDL Cholesterol Marysol 24 mg/dL (Normal) Range: 5-40 HDL Cholesterol 61 mg/dL (Normal) Comments: According to ATP-III Guidelines, HDL-C >59 mg/dL is considered anegative risk factor for CHD. Triglycerides 122 mg/dL (Normal) Range: 0-149 Cholesterol, Total 247 mg/dL (Abnormal) Range: 100-199 90-Fxy-095436:18 Microscopic Examination Comments: PATIENT WAS FASTINGPERFORMED BY: Zilker LabsPSE&G Children's Specialized HospitalLdpslf9732 [facility] [id number] Bacteria None seen (Normal) Epithelial Cells (non renal) 0-10 {/hpf} (Normal) Range: 0 - 10 RBC 0-3 {/hpf} (Normal) Range: 0 - 3 WBC 0-5 {/hpf} (Normal) Range: 0 - 5 89-Cwq-023178:18 METABOLIC PANEL, COMPREHENSIVE Comments: PATIENT WAS FASTINGPERFORMED BY: Zilker LabsPSE&G Children's Specialized HospitalNapjnw0123 [facility] [id number] (06325) ALT (SGPT) 16 [iU]/L (Normal) Range: 0-40 [...] Glucose, Serum 88 mg/dL (Normal) Range: 65-99 95-Xun-113939:18 URINALYSIS, W/ MICRO (24714) Comments: PATIENT WAS FASTINGPERFORMED BY: [facility]6370 [facility] [id number] Microscopic Examination See below: (Normal) Microscopic Examination MICRON (Normal) Comments: Microscopic follows if indicated. Nitrite, Urine Negative (Normal) Urobilinogen,Semi-Qn 0.2 mg/dL (Normal) Range: 0.0-1.9 Bilirubin Negative (Normal) Occult Blood Negative (Normal) Ketones Negative (Normal) Glucose Negative (Normal) Protein Negative (Normal) WBC Esterase Negative (Normal) Appearance Clear (Normal) Urine-Color Yellow (Normal) pH 5.5 (Normal) Range: 5.0-7.5 Specific [place] 1.018 (Normal) Range: 1.005-1.030 :18 LIPID PANEL (49646) Comments: PATIENT WAS FASTINGPERFORMED BY: Lango6370 [facility] [id number] LDL/HDL Ratio 2.8 {ratio_units} (Normal) Range: 0.0-3.2 [...] MANUAL DIFF Comments: PATIENT WAS FASTINGPERFORMED BY: Jackpocket6370 [facility] [id number] Information: [id number] (96168) Immature Grans (Abs) 0.0 {x10E3/uL} (Normal) Range: [...] 3.77-5.28 WBC 4.4 {x10E3/uL} (Normal) Range: 4.0-10.5 64-Doa-03417:52 Lipid Panel (58172) Comments: PATIENT WAS FASTINGPERFORMED BY: LabCoPSE&G Children's Specialized HospitalWwvmch1602 [facility] [id number] Information: [id number] LDL/HDL Ratio 2.2 {ratio_units} (Normal) Range: 0.0-3.2 LDL Cholesterol Calc 146 mg/dL (Abnormal) Range: 0-99 VLDL Cholesterol Marysol 23 mg/dL (Normal) Range: 5-40 HDL Cholesterol 67 mg/dL (Normal) Comments: According to ATP-III Guidelines, HDL-C >59 mg/dL is considered anegative risk factor for CHD. Triglycerides 115 mg/dL (Normal) Range: 0-149 Cholesterol, Total 236 mg/dL (Abnormal) Range: 100-199 12-Awn-437285:32 BILAT SCRN DIGITAL & CAD Radiology Report [...] radiologist regarding this report, please call our [id number] line @ Dictated on 01/18/12 1254 by Mt COLLINS,Yordyranscribed on 01/18/127 by ITS IMPORTSign by Tylor Silverio MD on 01/18/121457 Sign by: Tylor Amor MD 91-Yzr-695390:12 POTASSIUM SERUM (58811) Comments: PATIENT NOT FASTINGPERFORMED BY: LabCoPSE&G Children's Specialized HospitalCxppjd1097 [facility] [id number] Information: [id number] Potassium, Serum 5.2 mmol/L (Normal) Range: 3.5-5.2 50-Otm-83118:15 CBCD,SMEAR DIFF RED CELL MORPH SeeNote {NORMAL} [...] 200-240 mg/dL Borderline >240 mg/dL High Risk 62-Baf-929033:37 CBCD,SMEAR DIFF RED CELL MORPH SeeNote {NORMAL} [...] Serum 9.8 mg/dL (Normal) Comments: PERFORMED BY: Evi [facility] [id number] 59 Range: 8.6-10.2 : Phosphorus, Serum 3.6 mg/dL (Normal) Comments: PERFORMED BY: Evi [facility] [id number] 59 Range: 2.5-4.5 :59 Protein Electro, Random Urine Comments: PERFORMED BY: Evi [facility] [id number] Please note: SPRCS (Normal) Comments: Protein electrophoresis scan will follow via computer, mail, orcourier delivery. Gamma Globulin, U 19.1 % (Normal) M-Faisal, % Not Observed % (Normal) Beta Globulin, U 32.4 % (Normal) Xwbuv-1-Qdqmxrce, U 20.5 % (Normal) Kqtwe-5-Jizgzknt, U 4.1 % (Normal) Albumin, U 23.9 % (Normal) Protein,Total,Urine 6.5 mg/dL (Normal) Range: 0.0-15.0 57-Tpe-068424:59 Protein Electro.,S Comments: PERFORMED BY: [employer] [facility] [id number] Please note: SPRCS (Normal) Comments: Protein electrophoresis scan will follow via computer, mail, orcourier delivery. A/G Ratio 1.2 (Normal) Range: 0.7-2.0 Globulin, Total 3.2 g/dL (Normal) Range: 2.0-4.5 M-Faisal Not Observed g/dL (Normal) Kthhe-0-Pegexntu 0.2 g/dL (Normal) Range: 0.1-0.4 Xubym-3-Dijeuuln 0.8 g/dL (Normal) Range: 0.4-1.2 Beta Globulin 1.1 g/dL (Normal) Range: 0.6-1.3 Gamma Globulin 1.1 g/dL (Normal) Range: 0.5-1.6 Albumin 3.9 g/dL (Normal) Range: 3.2-5.6 Protein, Total, Serum 7.1 g/dL (Normal) Range: 6.0-8.5 PTH, Intact 27 pg/mL (Normal) Comments: PERFORMED BY: [employer] RolonFlanagan Freight TransportUNC Health Blue Ridge [id number] 5:59 Range: 15-65 Sedimentation 5 mm/h (Normal) Comments: PERFORMED BY: [facility] [facility] M360LOHAS outdoors [facility] [id number] 5:59 Rate-Westergren Range: 0-30 TSH 1.050 {uIU/mL} Comments: PERFORMED BY: [employer] Rolon [facility] HospitalVinPerfectUNC Health [facility] [id number] 5:59 (Normal) Range: 0.450-4.500 Vitamin D, 25-Hydroxy 39.3 ng/mL Comments: PERFORMED BY: MobileOCT RoadDublin [place] [id number] 5:59 (Normal) Range: 32.0-100.0 Comments: Recent studies consider the lower limit of 32.0 ng/mL to be athreshold for optimal health.Carrington WICK. J Nutr. 2004;135(2):317-22. 1-Ivd-849026:55 BILAT SCRN DIGITAL & CAD Radiology Report [...] be [facility] 30 days. Approximately 10% of breast cancers are not detected by mammography. Anormal mammogram should not delay biopsy of a clinically suspiciousabnormality. Dictated on 12/30/10 1348 Yordy Ortizranscribed on 01/05/11 1047 by ITS IMPORTSign by Tylor Amor on 01/05/11 1048 Sign by: yTlor Amor 4-Agx-891465:54 DEXA BONE DENSITY STUDY (HP) Radiology Report See Note (Normal) Comments: CLINICAL:Female, 60 years old. The patient is postmenopausal. EXAMINATION:DUAL ENERGY X-RAY ABSORPTIOMETRY / DEXA. TECHNIQUE:Bone Mineral Density (BMD) measurements of lumbar spine and bila teralhipswer e obtained using a fabrik scanner.. COMPARISON:Comparison is made with prior study [...] on 12/30/10 1407 Sign by: Tylor Amor 4-Rqr-801337:03 METABOLIC PANEL, COMPREHENSIVE Comments: PATIENT WAS FASTINGPERFORMED BY: LabCoPSE&G Children's Specialized HospitalOrnkov3890 [facility] [id number] (25535) ALT (SGPT) 17 [iU]/L (Normal) Range: 0-40 [...] Glucose, Serum 97 mg/dL (Normal) Range: 65-99 3-Qwz-024741:03 LIPID PANEL (03611) Comments: PATIENT WAS FASTINGPERFORMED BY: LabCoPSE&G [facility]'s Specialized HospitalRsrboy7695 [facility] [id number] LDL Cholesterol Calc 176 mg/dL (Abnormal) Range: 0-99 LDL/HDL Ratio 2.7 {ratio_units} (Normal) Range: 0.0-3.2 VLDL Cholesterol Marysol 31 mg/dL (Normal) Range: 5-40 Cholesterol, Total 272 mg/dL (Abnormal) Range: 100-199 HDL Cholesterol 65 mg/dL (Normal) Comments: According to ATP-III Guidelines, HDL-C >59 mg/dL is considered anegative risk factor for CHD. Triglycerides 157 mg/dL (Abnormal) Range: 0-149 6-Dmr-545236:03 CBC WITH MANUAL DIFF Comments: PATIENT WAS FASTINGPERFORMED BY: [facility]6370 [facility] [id number] Information: [id number] (43533) Baso (Absolute) 0.1 {x10E3/uL} (Normal) Range: 0.0-0.2 [...] PANEL, COMPREHENSIVE Comments: PATIENT WAS FASTINGPERFORMED BY: LabCoPSE&G Children's Specialized HospitalBvosjo0052 [facility] [id number] (66023) ALT (SGPT) 23 [iU]/L (Normal) Range: 0-40 [...] mg/dL (Normal) Range: 65-99 :38 LIPID PANEL (32626) Comments: PATIENT WAS FASTINGPERFORMED BY: [facility] Nlumvz8505 [facility] [id number] LDL Cholesterol Calc 143 mg/dL (Abnormal) Range: [...] three months (approximately); PATIENT WAS FASTINGPERFORMED BY: Jackpocket6370 [facility] [id number] Information: ADD [id number] AND DRAW FEE 99 7434 (02510) Baso (Absolute) 0.0 {x10E3/uL} (Normal) Range: 0.0-0.2 [...] 3.80-5.10 WBC 4.4 {x10E3/uL} (Normal) Range: 4.0-10.5 83-Tem-917526:03 BMP BUN/CRE 24.4 {RATIO} (Abnormal) Range: 10-20 [...] (Normal) GLU 91 mg/dL (Normal) Range: 70-110 27-Yuz-88126:00 EPIFANIO CULTURE-OTHER (51510) Comments: PATIENT NOT FASTINGPERFORMED BY: LabCoPSE&G Children's Specialized HospitalGvxakh9379 [facility] [place] [id number] Information: SRC: THROAT Result 1 RRF (Normal) Comments: Routine respiratory michelle Upper Respiratory Culture Final report (Normal) 13-Day-[id number]:43 Rapid Strep Test, Office (83862) Rapid Strep Test, Office Negative (Normal) 03-Etj-27094:35 CBCD,SMEAR DIFF CELLS COUNTED 100 (Normal) EOS [...] Report See Note (Normal) Comments: Exam Number: [id number] CLINICAL:Syncope and CT BRAIN WITH AND WITHOUT [...] There is no rmal enhancement of the [place] of [place], without a demonstrated aneurysm. Normal osseous calvarium, visualized facial bones, central skull base, and temporal bones without a demonstrated fracture or de structive process. Normal soft tissue structures of the calvarium. Normal visualized paranasal sinuses without mucosal thickening or air-fluid levels. IMPRESSION:Normal enhanced CT scan of the brain wi thout an acute or evolving intracranial process. Reported By: JERILYN PERRY 75-[id number]: GLU GTT-5 HOUR 73 mg/dL (Normal) Comments: 5HR GTT GLU 5 HR GLU GTT-5 HOUR from 0922:D63292O. 37 Range: 70-110 : GLU GTT-4 HOUR <TEST NOT PERFORMED> Comments: 5HR GTT GLU 4 HR GLU GTT-4 HOUR from 22:E87549V. 45 mg/dL (Normal) Range: 70-110 : GLU GTT-3 HOUR 78 mg/dL (Normal) Comments: 5HR GTT GLU 3 HR GLU GTT-3 HOUR from 921:R51170V. 40 Range: 70-110 : GLU GTT-2 HOUR 134 mg/dL (Abnormal) Comments: 5HR GTT GLU 2 HR GLU GTT-2 HOUR from 921:U21625D. 40 Range: 70-120 :4 GLU GTT-1 HOUR 155 mg/dL (Normal) Comments: 5HR GTT GLU 1 HR GLU GTT-1 HOUR from 921:I15770W. 0 Range: 120-170 :0 GLU GTT-30 min. 180 mg/dL (Abnormal) Comments: 5HR GTT GLU 1/2 HR GLU GTT-30 min. from 921:V30787X. 8 Range: 110-170 Comments: SPECIMEN GROSSLY HEMOLYZED :3 GLU GTT-FASTING 104 mg/dL (Normal) Comments: 5HR GTT FASTING GLU GTT-FASTING from 921:L38119E. 5 Range: 70-110 Comments: GLUCOSE TOLERANCE TEST Reference Interval Non- Adults Fasting 70 - 110 30 minutes 110 - 170 1 hour 120 - 170 2 hour 70 - 120 3 hour 70 - 110 4 hour 70 - 110 5 hour 70 - 110 :3 BEDSIDE GLU 97 mg/dL (Normal) Range: 70-110 3 Comments: Policy and Physicians Orders followed :47 Urinalysis, Office (60781) UA - BILIRUBIN Small (Normal) UA - BLOOD Hemolyzed Small (Normal) UA - GLUCOSE Negative (Normal) UA - KETONES Negative mg/dL (Normal) UA - LEUKOCYTE ESTERASE Small (Normal) Comments: aw UA - NITRITE Negative (Normal) UA - PH 5.0 (Normal) UA - PROTEIN Negative mg/dL (Normal) UA - SPECIFIC GRAVITY 1.025 (Normal) URINE UROBILINGN RONALD TIMED Normal mg/dL (Normal) 38-Pvy-220631:23 UNILAT RT DIAG DIGITAL & CAD Radiology Report See Note (Normal) Comments: Exam Number: [id number] MAMMOGRAM, UNILATERAL RIGHT DIAGNOSTIC DIGITAL AND CAD [...] werealso e xamined with computer-aided detection software ([employer], [employer] Reported By: AUBRIE CROW M.D. 91-Rdm-452895:19 ABDOMEN W/WO IV CONTRAST Radiology Report See Note (Normal) Comments: Exam Number: [id number] CLINICAL:Liver lesion CT ABDOMEN WITH AND WITHOUT [...] sponge kidneys. Reported By: GREGG GLEZ M.D. 93-Que-49004:28 SERUM CRE & GFR Comments: CALL RESULTS TO [phone] CREAT,SERUM 0.8 mg/dL (Normal) Range: 0.6-1.0 EST GFR 78 mL/min (Normal) EST GFR - AA 95 mL/min (Normal) 90-Wcd-67534:29 CERV SPINE,MIN 4 VIEWS Radiology Report See Note (Normal) Comments: Exam Number: [id number] CERVICAL SPINE SERIES, MULTIPLE VIEWS INCLUDING BILATERAL [...] spine series. Reported By: EMMA JETT M.D. 1-Hzw-594016:16 UNILAT RT DIAG DIGITAL & CAD Radiology Report See Note (Normal) Comments: Exam Number: [id number] MAMMOGRAM, UNILATERAL RIGHT DIAGNOSTIC DIGITAL AND CAD [...] mammograms werealso examined with computer-aided detection software ([employer] Reported By: AUBRIE CROW M.D. 81-Wrn-363093:46 [facility] DIGITAL & CAD Radiology Report See Note (Normal) Comments: Exam Number: [id number] BILATERAL SCREENING MAMMOGRAPHY HISTORYRoutine screening. COMPARISONComparison is [...] Elsewhere no suspiciouscluster of calcification, area of data center solutions architect ural distortion, orthree-dimensional spiculated masses. IMPRESSION1. [...] mammogramswere also examined with computer- aided detection software([employer] Reported By: CASSIE QUINTEROS M.D. 05-Hsr-833054:17 LIPID CHOL 223 mg/dL (Abnormal) Comments: <200 [...] mg/dL VLDL 19 mg/dL (Normal) Range: 5-40 12-Uos-601763:17 LIVER ALB 3.5 g/dL (Normal) Range: 3.4-5.0 [...] Report See Note (Normal) Comments: Exam Number: [id number] MAMMOGRAM, LEFT UNILATERAL DIAGNOSTIC DIGITAL AND CAD [...] mammograms werealso examined with computer-aided detection software ([employer], [employer], [employer] Reported By: AUBRIE CROW M.D. :40 MAMM, BILAT SCRN DIGITAL & CAD Radiology Report See Note (Normal) Comments: Exam Number: [id number] MAMMOGRAM, BILATERAL SCREENING DIGITAL & CAD Full [...] mammograms werealso examined with computer-aided detection software ([employer], [employer], [employer] Reported By: AUBRIE CROW M.D. :58 CULTURE, [...] $$$ >=256 R TRIMETHOPRIM/SULFAMETHOXAZ $$ <=10 S 19-Ull-270050:58 ROUTINE UA BILIRUBIN URINE SeeNote (Normal) Comments: [...] 0.2 EU/dl (Normal) Range: 0.2 - 1.0 05-Zkq-676865:10 CBC HCT 41.3 % (Normal) Range: 37-47 HGB 14.2 g/dL (Normal) Range: 12.0-16.0 MCH 30.6 pg (Normal) Range: 27.0-32.0 MCHC 34.4 g/dL (Normal) Range: 32-36 MCV 88.9 fL (Normal) Range: 81-99 PLT 325 K/mm3 (Normal) Range: 150-450 RBC 4.65 {M/mm3} (Normal) Range: 4.2-5.4 RDW 13.3 % (Normal) Range: 11.6-14.6 WBC 6.4 K/mm3 (Normal) Range: 4.4-11.0 73-Eew-564426:10 COMP METABOLIC A/G 1.1 {RATIO} (Normal) Range: [...] T PROT 7.6 g/dL (Normal) Range: 6.4-8.2 32-Zwm-863236:10 PFLIP CHOL 231 mg/dL (Abnormal) Comments: <200 [...] mg/dL VLDL 20 mg/dL (Normal) Range: 5-40 30-Aib-082048:10 ROUTINE UA BILIRUBIN URINE SeeNote (Normal) Comments: [...] Indication: Low back pain Planned Observations IRON ([id number])Indication: Anemia On: 26-Buk-410708:06 Request CBC, Platelets & Auto Diff (82156)Indication: Anemia On: 69-Sge-753468:05 Request MICROALBUMIN: CREATININE RATIO (46070) AND (51823)Indication: Benign essential hypertension On: :03 Request Comments: Jul 2017 URINALYSIS (94725)Indication: Benign essential hypertension On: :03 Request Comments: Jul 2017 TSH (25964)Indication: Benign essential hypertension On: :03 Request Comments: Jul 2017 CBC, Platelets & Auto Diff (33988)Indication: Benign essential hypertension On: :03 Request Comments: Jul 2017 Metabolic Panel, Comprehensive ([id number])Indication: Benign essential hypertension On: :02 Request Comments: Jul 2017 URINALYSIS, W/ MICRO (90753)Indication: Benign essential hypertension On: :22 Request METABOLIC PANEL, COMPREHENSIVE (29514)Indication: Benign essential hypertension On: :22 Request LIPID PANEL (78240)Indication: Benign essential hypertension On: :22 Request CBC with auto diff (46790)Indication: Benign essential hypertension On: :22 Request Blood Glucose , Office (01501)Indication: SYNCOPE, NOS On: 53-Kwb-650580:23 Request LIPID PANEL (84390)Indication: Hyperlipidemia On: 71-Udz-040515:37 Request HEPATIC FUNCTION PANEL (47881)Indication: Hyperlipidemia On: 65-Dcb-793833:37 Request CALCIFIDIOL (67038) VIT D 25Indication: Osteoporosis On: :50 Request CALCIUM SERUM (20314)Indication: Osteoporosis On: :48 Request TSH (82036)Indication: Osteoporosis On: :48 Request UPEP (18242)Indication: Osteoporosis On: :48 Request SPEP (74432)Indication: Osteoporosis On: :47 Request SED RATE ERYTHROCYTE (08069)Indication: Osteoporosis On: :47 Request PHOSPHORUS (57811)Indication: Osteoporosis On: :47 Request PARATHORMONE (75440)Indication: Osteoporosis On: :47 Request URINALYSIS, W/ MICRO (00243)Indication: Benign essential hypertension On: 84-Qya-150038:00 Request CBC with manual diff ([id number])Indication: Benign essential hypertension On: :40 Request Metabolic Panel, Comprehensive (38550)Indication: Hyperkalemia On: :40 Request Lipid Panel (21024)Indication: Hypercholesterolemia On: :40 Request METABOLIC PANEL, COMPREHENSIVE (36820)Indication: Hypercholesterolemia On: :16 Request LIPID PANEL (57805)Indication: Hypercholesterolemia On: :16 Request Comments: in three months (approximately) Metabolic Panel, Basic (16136)Indication: Benign essential hypertension On: :15 Request Comments: 2 weeks GLUCOSE TOLERANCE TEST (GTT) 5 hour (82553)Indication: SYNCOPE, NOS On: :49 Request Blood Glucose , Office (38010)Indication: SYNCOPE, NOS On: 72-Nas-458480:47 Request Comments: 92 URINALYSIS W/O MICRO (93726)Indication: Benign essential hypertension On: :35 Request METABOLIC PANEL, COMPREHENSIVE (47076)Indication: Benign essential hypertension On: :35 Request LIPID PANEL (58469)Indication: Benign essential hypertension On: :35 Request CBC WITH MANUAL DIFF ([id number])Indication: Benign essential hypertension On: :34 Request MICROALBUMIN: CREATININE RATIO (52828) AND (57679)Indication: Benign essential hypertension On: :08 Request METABOLIC PANEL, COMPREHENSIVE (72148)Indication: Benign essential hypertension On: :08 Request LIPID PANEL (41816)Indication: Benign essential hypertension On: 69-Hcm-136381:08 Request CBC WITH MANUAL DIFF ([id number])Indication: Benign essential hypertension On: 14-Vvr-383350:08 Request CBC (Auto) ([id number])Indication: Hypercholesterolemia On: 9-Tsi-443615:47 Request Metabolic Panel, Comprehensive (21418)Indication: Hypercholesterolemia On: 5-Cez-608024:47 Request Lipid Panel (94496)Indication: Hypercholesterolemia On: 0-Zgs-006275:46 Request Comments: in three months (approximately) HEPATIC FUNCTION PANEL (46237)Indication: Hypercholesterolemia On: 25-Jcl-568561:21 Request LIPID PANEL ([id number])Indication: Hypercholesterolemia On: 08-Lyw-255366:21 Request Comments: in six months Planned Encounters [...] MIHIR ThuyLes Lott CNP Thuy Wax [place] (21292)By: 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, On: 26-Jan-2018 Intent Reyna Ear Irrigation (20269)By: Jorgito On: 26-Jan-2018 Intent SHRIMP PEELING MACHINE OPERATOR Reyna PARATHYROID SCAN WITH MIBI AND I-123 On: 14-Jan-2018 Intent (44794)By: Oren ASH Thuy Cigeovany ASH Thuy Toradol Injection, 30 mg (J1885)By: On: 12-Jan-2018 Intent Peggy Lott CNPa Peggy ASH SCREENING DIGITAL TOMOSYNTHESIS OF On: 06-Sep-2017 Intent BREAST (44589)By: Peggy Lott CNP CiPeggy armenta CNP DEXA SCAN AXIAL SKELETON (48713)By: On: 06-Sep-2017 Intent Peggy Lott CNP E Ciesa Peggy ASH E Holter Monitor 24 hrsBy: Oren ASH, On: 23-Jun-2017 Intent Peggy Lott CNP, Peggy Saldana ELECTROCARDIOGRAM, COMPLETE (ECG) On: 23-Jun-2017 Intent (02050)By: Oren ASH Peggy Lott CNP, Peggy Saldana ELECTROCARDIOGRAM, COMPLETE (ECG) On: 10-Aug-2016 Intent (69104)By: Oren ASH Peggy Lott CNP, Peggy Saldana ELECTROCARDIOGRAM, COMPLETE (ECG) On: 20-Jul-2016 Intent (04278)By: Oren ASH Peggy Lott CNP, Peggy Saldana MAMMOGRAM BREAST BILATERAL SCREENING On: 20-Jul-2016 Intent DIGITAL (11605)By: Oren MIHIR Peggy Lott CNP, Peggy Saldana INJECTION, PROLIA (J0897)By: Iris On: 16-Oct-2015 Intent Silvana COLLINS Comments: Lot:[id number]:05/14Dose:60mg/mlRoute:sub qSite:l armGiven By:JKMVIS signed DEXA SCAN AXIAL SKELETON (65794)By: On: 08-Jun-2015 Intent Silvana Simmons MD MAMMOGRAM, SCREENING, BOTH BREAST On: 08-Jun-2015 Intent (18589)By: Silvana Simmons MD Echo CompleteBy: Silvana Simmons MD On: 10-Nov-2014 Intent Holter Monitor 24 hrsBy: Iris COLLINS, On: 10-Nov-2014 Intent Silvana Holder Carotid DopplerBy: Silvana Simmons MD On: 10-Nov-2014 Intent M FLU VAC, SPLIT, >3 YEARS, INTRAMUSC On: 26-Sep-2013 Intent (72702)By: Silvana Simmons MD Comments: Lot #:[id number] date:05.10Amount given:0.5mlRoute: IMSite given:L DltdGiven by: Paige ANAYA and ABN signed IMMUNIZ ADMNIN, 1 VAC, SNGL/COMBO On: 26-Sep-2013 Intent (21864)By: Silvana Simmons MD EKG (84348)By: PAIGE Rees On: 26-Sep-2013 Intent Eprescribed prescriptions (G8553)By: On: 12-Feb-2013 Intent 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 Ear Irrigation (53227)By: Lucio On: 18-Jan-2013 Intent Jayde JONES Comments: Ear Irrigation performed on: r earAmount/color removed cerumen:brownish moderate amountOUtcome:pt tolerated Used wax curettes Wax CurettesBy: Jayde Valdes LPN On: 18-Jan-2013 Intent Phenergan Injection, up to 50 mg On: 15-Jan-2013 Intent (J2550)By: Oren ASH, Peggy Lott Comments: give 25mg IMLot #[id number]-left hipDose-25mggiven by: Claudia Browne LPN CNP, Mary E IMMUNIZ ADMNIN, 1 VAC, SNGL/COMBO On: 14-Aug-2012 Intent (06356)By: Silvana Simmons MD FLU VAC, SPLIT, >3 YEARS, INTRAMUSC On: 14-Aug-2012 Intent (87494)By: Silvana Simmons MD DXA, BONE DENSITY, AXIAL SKELETON On: 14-Aug-2012 Intent (53733)By: Silvana Simmons MD MAMMOGRAM, SCREENING, BOTH BREASTS On: 14-Aug-2012 Intent (64759)By: Silvana Simmons MD Breast Screening - BilateralBy: On: 09-Jan-2012 Intent Silvana Simmons MD EKG (16699)By: Jayde Valdes LPN On: 31-Oct-2011 Intent Comments: sinus rhythm , borderline T abnormal ant leads MAMMOGRAM, SCREENING, BOTH BREASTS On: 18-Nov-2010 Intent (46721)By: Silvana Simmons MD DXA, BONE DENSITY, AXIAL SKELETON On: 18-Nov-2010 Intent (97650)By: Silvana Simmons MD Wax CurettesBy: PAIGE Rees On: 26-Mar-2010 Intent Ear Irrigation (12338)By: Cabrera On: 26-Mar-2010 Intent PAIGE SPECIMEN HNDLNG/TRNSPRT, OFFC > LAB On: 24-Nov-2009 Intent (30826)By: PAIGE Rees EEGBy: Peggy Lott CNP, CNP, On: 12-Aug-2009 Intent Peggy Saldana Holter Moniter (57424)By: Oern On: 12-Aug-2009 Intent Peggy ASH CNP, Mary E CT - Brain/HeadBy: Peggy Lott CNP On: 12-Aug-2009 Intent Peggy Lott CNP Bio Z (01686)By: Peggy Lott CNP On: 12-Aug-2009 Intent Peggy Lott CNP Echo CompleteBy: Peggy Lott CNP On: 12-Aug-2009 Intent Peggy Lott CNP Cartoid DopplerBy: Peggy Lott CNP On: 12-Aug-2009 Intent Peggy Lott CNP EKG ([id number])By: Reanna Becker On: 12-Aug-2009 Intent Radiology - Cervical SpineBy: On: 04-Dec-2008 Intent Silvana Simmons MD Breast Diagnostic - RightBy: Iris On: 17-Nov-2008 Intent Silvana COLLINS Comments: abnormal mammo, 04-04 due for follow up EKG (76171)By: Silvana Simmons MD On: 17-Nov-2008 Intent MAMMOGRAM, SCREENING, BOTH BREASTS On: 27-Aug-2007 Intent (39082)By: Silvana Simmons MD EKG (40135)By: Silvana Simmons MD On: 27-Aug-2007 Intent Clinical Breast Examination On: 12-Jan-2007 Intent (G0101)By: Silvana Simmons MD MAMMOGRAM, SCREENING, BOTH BREASTS On: 12-Jan-2007 Intent (83635)By: Silvana Simmons MD Comments: after 02-15-07 Toradol [...] patient does not have durable power of bankruptcy attorney or living will. The patient has [...] ,emotional problems (depression) ,hypertension and other (hyperlipidemia, [place], low back pain, osteopenia ). Note for [...] [facility] End: 21-Aug-2006 15:45 Payers Margaret/Medicare Lilliana Felix; stanley guarantor
--- OUTSIDE RECORDS SUMMARY | 2019-02-15 03:16 | XMS RPT_ITS | Continuity of Care Document ---
:1950 Author Organization [facility] Address [address] [place] [address] Phone Care Team Providers Name Role Phone [...] all vaccines. will get eye exam in [place] pt has appt. Status: Active Encounter for [...] Status: Active Headache (R51, 784.0) Comments: rt religious, but has got these in past Status: [...] Refills: 1 Ordered:10-Sep-2018 Oren ASH, Peggy Kirkland [facility], Peggy Saldana Start : 10-Sep-2018 Active Atorvastatin Calcium 10 MG Oral Tablet 1 (one) Tablet daily for 0 days Quantity: 90 {Tablet} Refills: 3 Ordered:06-Jun-2018 [facility] Start : 06-Jun-2018 Active Ibuprofen 400 MG Oral Tablet 1 (one) Tablet bid prn for 0 days Quantity: 60 {Tablet} Refills: 0 Ordered:10-Sep-2018 [facility] Start : 10-Sep-2018 Active Lisinopril 2.5 MG Oral Tablet 1 (one) Tablet daily for 0 days Quantity: 30 {Tablet} Refills: 6 Ordered:13-Sep-2018 Oren ASH, Peggy Kirkland [facility], Peggy Saldana Start : 13-Sep-2018 Active Tylenol 325 MG Oral Capsule 1 (one) Capsule Capsule q8hrs prn for 0 days Quantity: 30 {Capsule} Refills: 0 Ordered:10-Sep-2018 Oren ASH, Peggy Kirkland [facility], Peggy Saldana Start : 10-Sep-2018 Active ACTONEL, [...] Quantity: 30 {Tablet} Refills: 3 Ordered:06-Jun-2018 Oren SURGICAL SUPERVISOR, Peggy Kirkland SURGICAL SUPERVISOR, Thuy Start : 05-Mar-2018 End : 06-Jun-2018 [...] Quantity: 14 {Capsule} Refills: 0 Ordered:06-Jun-2018 Sydneegeovany SURGICAL SUPERVISOR, Peggy Kirkland CNP, Thuy Start : 06-Jun-2018 [...] Views Result: Comments: See Note; NOTES: [facility] Imaging Services [address] [place] [address] Shoulder min 2 Views MR#: [id number] Acct: [id number] Name: JOSE RAFAEL FELIX Rep #: [id number] : 1950 F 67 From: Christian Simeon MD PCP: Peggy Lott NP Status: REG CLI Study: Shoulder min 2 Views Date of Exam: 09/10/18 Exam# [id number] Ordering Dr: Peggy Lott MANAGER REGISTRATION-C STUDY: X-RAY - RIGHT SHOULDER REASON FOR [...] Service support , CC: Peggy Lott NP Cafe Helper: Signed 26-Jul-2018 12 Lead Electrocardiogram Result: Comments: See Note; NOTES: [facility] Cardiovascular Services [address] [place] [address] 12 Lead EKG 07/24/18 1737 MR#: [id number] Acct: [id number] Name: JOSE RAFAEL FELIX Rep #: [id number] : 1950 67 From: Calixto Ludwig MD [...] progre ssion Confirmed by OZIEL COLLINS, CALIXTO ([id number]), acquisition editor BEENA JIN (56) on 07/26/2018 1:39:09 PM Referred By: Ramiro Barney Confirmed By:CALIXTO LUDWIG MD 07/26/18 1339 Date Calixto Ludwig MD CC: Peggy Lott NP; Ramiro Barney MD Signed 25-Jul-2018 Emergency Department Summary Result: Comments: See Note; NOTES: [facility] Medical Records Department [address] [place] [address] Emergency Department Summary 07/24/18 1852 MR#: [id number] Acct: [id number] Name: JOSE RAFAEL FELIX Rep #: [id number] : 1950 67 From: Ramiro Barney MD [...] 1. Dehydration. This note was generated with [employer] dictation software. It may contain incorrect words, [...] your Primary Care Provider. Call [facility] ([phone]) or report to the closest Emergency Room. Call 911 if necessary. 07/25/18 0143 <Electronically signed by Ramiro mejia MD> Date Ramiro Barney MD Cosigner Signature (If Indicated): Date CC: Peggy Lott NP 18-Apr-2018 PT D/C Summary (1) Result: Comments: See Note; NOTES: [facility] [address] [place] [address]. [address] [place] [address] Fax [facility] MR#: [id number] Acct: [id number] Name: JOSE RAFAEL FELIX Rep #: [id number] : 1950 67 From: Danny Callahan DPT, [...] strength program to c linda at local [facility] Goal Progress: Goal Met Goal 4:: Work without increased pain Goal Progress: Goal Met - Plan Plan: D/C - D/C Information Discharge Comments: Ready to be done 100% better. Will f/u with doctor in May. If there are questions or concerns regarding this patient's physical therapy, please feel free to call me at [phone]. Thank you for the referral of this patient. Sincerely, Les Callahan DPT, OC <Electronically signed by Danny Callahan DPT, ABELARDO, CSCS> 04/18/18 0733 CC: Peggy Lott NP EBG Signed 24-Feb-2018 Inital Evaluation (1) - PT Result: Comments: See Note; NOTES: [facility] [address] [place] [address] Fax REHABILITATION SERVICES INITIAL EVALUATION MR#: [id number] Acct: [id number] Name: JOSE RAFAEL FELIX Rep #: [id number] : 1950 67 From: Danny Callahan DPT, [...] be FAXED BACK to us a t [phone] for Medicare purposes. Please let me know [...] Views Result: Comments: See Note; NOTES: [facility] Imaging Services [address] [place] [address] Cerv Spine 4 or 5 Views MR#: [id number] Acct: [id number] Name: JOSE RAFAEL FELIX Rep #: [id number] : 1950 F 67 From: Hayden Fernandes MD PCP: Peggy Lott NP Status: REG CLI Study: Cerv Spine 4 or 5 Views Date of Exam: 02/19/18 Exam# [id number] Ordering Dr: Peggy Lott STUDY: X-RAY - [...] Service support , CC: Peggy Lott NP Cafe Helper: Signed 24-Jan-2018 Parathyroid Scan Result: Comments: See Note; NOTES: [facility] Imaging Services [address] [place] [address] Parathyroid Scan MR#: [id number] Acct: [id number] Name: JOSE RAFAEL FELIX Scarlett Rep #: [id number] : 1950 F 67 From: Vren Hendricks DO PCP: Peggy Lott NP Status: REG CLI Study: Parathyroid Scan Date of Exam: 01/24/18 Exam# [id number] Ordering Dr: Peggy Lott CLINICAL: 67-year-old female [...] Service support , CC: Peggy Lott NP Cafe Helper: Signed 25-Dec-2017 Emergency Department Summary Result: Comments: See Note; NOTES: [facility] Medical Records Department [address] [place] [address] Emergency Department Summary 12/25/17 0838 MR#: [id number] Acct: [id number] Name: JOSE RAFAEL FELIX Rep #: [id number] : 1950 67 From: Ty Mckeon MD PCP: Peggy Lott NP Status: REG ER - ER Visit Summary Date of Service: 12/25/17 Chief Complaint: [] History of Present Illne ss: The patient is a 67 F [] Physical Examination: [] Test Results: [] Emergency Department Course and Treatment: [] Treatment Plan: [] Disposition: [] Impression: [] This note was generated Press About [employer] software. It may contain incorrect words, spelling, [...] your Primary Care Provider. Call [facility] ([phone]) or report to the closest [facility] Room. Call 911 if necessary. 12/25/17 0839 <Electronically signed by Ty Mckeon MD> Date Ty Mckeon MD Cosigner Signature (If I ndicated): Date CC: Peggy Lott NP 25-Dec-2017 Emergency Department Summary Result: Comments: See Note; NOTES: [facility] Medical Records Department [address] [place] [address] Emergency Department Summary 12/25/17 0627 MR#: [id number] Acct: [id number] Name: JOSE RAFAEL FELIX Rep #: [id number] : 1950 67 From: Sue Friedman PCP: [...] pain left-sided] This note was generated with [employer] dictation software. It may contain incorrect words, [...] problems, contact your Primary Care Provider. Call [facility] ([phone]) or report to the closest Emergency Room. Call 911 if necessary. 12/25/17 0750 <Electronically signed by Sue Friedman > Date Sue Friedman Cosigner Signature ( If Indicated): Date CC: Peggy Lott NP 25-Dec-2017 Emergency Department Summary Result: Comments: See Note; NOTES: [facility] Medical Records Department [address] [place] [address] Emergency Department Summary 12/25/17 0627 MR#: [id number] Acct: [id number] Name: JOSE RAFAEL FELIX Rep #: [id number] : 1950 67 From: Sue Friedman PCP: [...] pain left-sided] This note was generated with [employer] software. It may contain incorrect words, spelling [...] your Primary Care Provider. Call [facility] ([phone]) or report to the closest Emergency Room. Call 911 if necessary. 12/25/17 0750 <Electronically signed by Sue Friedman > Date Sue Friedman Cosigner Signature (If Indicated): Date CC: Peggy Lott MANAGER REGISTRATION 25-Dec-2017 Abdomen/Pelvis without Cont Result: Comments: See Note; NOTES: [facility] Imaging Services [address] [place] [address] Abdomen/Pelvis without Cont MR#: [id number] Acct: [id number] Name: JOSE RAFAEL FELIX Rep # : [id number] : 1950 F 67 From: Tylor Amor MD PCP: Peggy Lott NP Status: REG ER Study: Abdomen/Pelvis without Cont Date of Exam: 12/25/17 Exam# [id number] Ordering Dr: Sue Friedman DY: CT ABDOMEN [...] Tylor Amor MD at 8:10 EST Tel [phone], Service support , CC: Peggy Lott MANAGER REGISTRATION; Sue Friedman Cafe Helper: Signed 27-Sep-2017 Dexa Bone Density Study (HP) Result: Comments: See Note; NOTES: [facility] Imaging Services [address] [place] [address] Dexa Bone Density Study (HP) MR#: [id number] Acct: [id number] Name: JOSE RAFAEL FELIX Rep #: [id number] : 1950 F 67 From: Tylor Amor MD PCP: Peggy Lott Status: REG CLI Study: Dexa Bone Density Study (HP) Date of Exam: 09/27/17 Exam# [id number] Ordering Dr: Peggy Lott STUD Y: DUAL [...] Tylor Amor MD at 12:36 EDT Tel [phone], Service support , CC: Peggy Lott Cafe Helper: Signed 27-Sep-2017 SCREENING MAMM (CAD), BILAT Result: Comments: See Note; NOTES: [facility] Imaging Services [address] [place] [address] SCREENING MAMM (CAD), BILAT MR#: [id number] Acct: [id number] Name: JOSE RAFAEL FELIX Rep # : [id number] : 1950 F 67 From: Tylor Amor MD PCP: Peggy Lott Status: REG CLI Study: SCREENING MAMM (CAD), BILAT Date of Exam: 09/27/17 Exam# [id number] Ordering Dr: Peggy Lott MAMMOG EVELYN - [...] biopsy of a clinically suspicious abn ormality. [id number] Electronically Signed: Tylor Amor MD at 13:08 EDT Tel [phone], Service support , CC: Peggy Lott Cafe Helper: Signed 03-Aug-2016 Bilat Scrn Digital AND CAD Result: Comments: See Note; NOTES: [facility] Imaging Services [address] [place] [address] Verdana 4d Bilat Scrn Digital AND CAD MR#: [id number] Acct: [id number] Name: SHAUNA FELIX Rep #: [id number] : 1950 F 65 From: Tylor Amor MD PCP: Silvana Simmons MD Status: REG CLI Study: Bilat Scrn Digital AND CAD Date of Exam: 08/03/16 Exam# [id number] Ordering Dr: Peggy Lott MAMMOGRAPHY - BILATERAL [...] delay biopsy of a clinically suspicious abnormality. [id number] Electronically Signed: Tylor Amor MD 201 05/05/07 at 15:56 EDT Tel [phone], Service support [phone], CC: Peggy Lott; Silvana Simmons MD Cafe Helper: Signed 26-Jul-2015 Emergency Department Summary Result: Comments: See Note; NOTES: [facility] Medical Records Department [address] [place] [address] Emergency Department Summary MR#: [id number] Acct: [id number] Name: JOSE RAFAEL MILES Rep #: [id number] : 1950 64 From: Ty Mckeon MD [...] C: Erick Eduardo MD T: NTS JOB: [id number] 07/26/152320 <Electronically signed by Ty Mckeon MD> Date Ty Mckeon MD Co signer Signature (If Indicated): Date CC: Silvana Simmons MD; Calixto Eduardo MD Date Dictated: 07/26/152258 Date Transcribed: 07/26/152258 Cafe Helper: Signed 26-Jul-2015 Discharge Instruction Result: Comments: See Note; NOTES: [facility] Medical Records Department [address] [place] [address] Discharge Instruction 07/26/152299 MR#: [id number] Acct: [id number] Name: JOSE RAFAEL FELIX Rep #: [id number] : 1950 64 From: Ty Mckeon MD [...] problems, contact your doctor. Call [facility] ([phone]) or report to the closest Emergency Room. Call 911 if necessary. 07/26/15 2301 <Electronically signed by Ty Hyde> Date Ty Mckeon MD Cosigner Signature (If Indicated): Date CC: Silvana Simmons MD 30-Jun-2015 Bilat Scrn Digital AND CAD Result: Comments: See Note; NOTES: [facility] Imaging Services [address] [place] [address] Breast Imaging Report MR#: [id number] Acct: [id number] Name: JOSE RAFAEL FELIX Rep #: [id number] : 1950 F 64 From: Tylor Amor MD PCP: Silvana Simmons MD Status: REG CLI Study: Parisa Herndon Digital AND CAD Date of Exam: 06/30/15 Exam# [id number] Ordering Dr: Obi Simmons MD MAMMOGRAPHY - [...] Tylor anguiano MD at 11:01 EDT Tel [phone], Service support [phone], CC: Silvana Simmons MD Cafe Helper: Signed 30-Jun-2015 Dexa Bone Density Study (HP) Result: Comments: See Note; NOTES: [facility] Imaging Services [address] [place] [address] Bone Density Report MR#: [id number] Acct: [id number] Name: JOSE RAFAEL FELIX Rep #: [id number] : 1950 F 64 From: Tylor Amor MD PCP: Silvana Simmons MD Status: REG CLI Study: Dexa Bone Density Study (HP) Date of Exam: 06/30/15 Exam# [id number] Ordering Dr: Obi Simmons MD STUDY: DUAL [...] Tylor Amor MD at 15:00 EDT Tel [phone], Service support [phone], CC: Silvana Simmons MD Cafe Helper: Signed 14-Nov-2014 Echocardiogram Complete Result: Comments: See Note; NOTES: [facility] Cardiovascular Services [address] [place] [address] Echo Complete 11/14/14 1048 MR#: [id number] Acct: [id number] Name: ANTWAN FELIX Rep #: [id number] : 1950 64 From: Capo Powell MD Attending Dr: Silvana Simmons MD Status: REG CLI Ordering Dr: Silvana Simmons MD Date: 11/14/14 Location: [facility] Sex: F C Admitted: [facility] This was a 2D Doppler, Color Flow [...] Dictated: 11/14/14 1048 Date Transcribed: 11/14/14 140 Cafe Helper: Signed 04-Nov-2014 12 Lead Electrocardiogram Result: Comments: See Note; NOTES: [facility] Cardiovascular Services [address] [place] [address] 12 Lead EKG 11/02/14 1128 MR#: [id number] Acct: [id number] Name: VANITA FELIX Rep #: [id number] : 1950 64 From: Capo Powell MD [...] ECG Confirmed by CAPO POWELL MD ([id number]), acquisition editor BEENA JIN (56) on 11/04/2014 10:22:44 AM Referred By: JANET Confirmed B y:CAPO POWELL MD 11/04/14 1022 Date Capo Powell MD CC: Silvana Simmons MD Date Dictated: 11/02/14 1128 Date Transcribed: 11/02/14 1128 Cafe Helper: Signed Family History Unknown Family Member Name [...] 0.00 cm Results Date Description Value Details 52-Lso-660673:39 CBC W/Diff, Automated Comments: [facility] [address], [address] Absolute Lymph 1.01 {X10_3/ul} (Normal) Range: [...] 4.2-5.4 WBC 6.0 K/mm3 (Normal) Range: 4.4-11.0 39-Uoq-834289:39 Iron Comments: [facility] [address] [place], [address] IRON 79 ug/dL (Normal) Range: 50-170 10-Nbh-598332:35 Basic Metabolic Profile (BMP) Comments: [facility] [address] [place], [address] GAP 8 (Normal) Range: 5-15 CO2 24.0 [...] Comments: Please note revised GLUCOSE reference range difsepdii97/02/2018. 61-Wkd-854641:35 CBC W/Diff, Automated Comments: [facility] [address] [place], [place], [address] Absolute Lymph 0.62 {X10_3/ul} (Abnormal) Range: 0.83-4.51 [...] 4.2-5.4 WBC 5.9 K/mm3 (Normal) Range: 4.4-11.0 52-Gug-218514:53 URINE EPIFANIO CULTURE-IDENTIFICATN Comments: PATIENT NOT FASTINGPERFORMED BY: ROBERT MyCabbage VIRxSYS [facility] [id number] Information: SRC: (26793) Antimicrobial MIHEAD (Normal) Comments: S = Susceptible; [...] mL (Abnormal) Urine Final report Culture,Comprehensive (Abnormal) 40-Noc-260205:56 Urinalysis, Office (23748) UA - LEUKOCYTE ESTERASE Moderate (Normal) UA - NITRITE Positive (Normal) URINE UROBILINGN RONALD TIMED Normal mg/dL (Normal) UA - PROTEIN Negative mg/dL (Normal) UA - PH 6.5 (Normal) UA - BLOOD Non Hemolyzed Moderate (Normal) UA - SPECIFIC GRAVITY 1.020 (Normal) UA - KETONES Negative mg/dL (Normal) UA - BILIRUBIN Negative (Normal) UA - GLUCOSE Negative (Normal) 6-Gbq-227917:25 Microscopic Examination Comments: PATIENT WAS FASTINGPERFORMED BY: ROBERT MyCabbage [address] [place] [address] [id number] Bacteria Many (Abnormal) Mucus Threads Present (Normal) Cast Type Hyaline casts (Normal) Casts Present {/lpf} (Abnormal) Epithelial Cells (non renal) 0-10 {/hpf} (Normal) Range: 0 - 10 RBC 0-2 {/hpf} (Normal) Range: 0 - 2 WBC >30 {/hpf} (Abnormal) Range: 0 - 5 :25 MICROALBUMIN: CREATININE RATIO Comments: PATIENT WAS FASTINGPERFORMED BY: [facility] [id number] (98904) AND (70903) Alb/Creat Ratio 27.0 {mg/g_creat} (Normal) Range: 0.0-30.0 Albumin, Urine 33.5 ug/mL (Normal) Creatinine, Urine 124.3 mg/dL (Normal) :25 URINALYSIS (09159) Comments: PATIENT WAS FASTINGPERFORMED BY: [facility] CenterDlqjwm6690 [facility] [id number] Microscopic Examination See below: (Normal) Comments: Microscopic was indicated and was performed. Nitrite, Urine Positive (Abnormal) Urobilinogen,Semi-Qn 0.2 mg/dL (Normal) Range: 0.2-1.0 Bilirubin Negative (Normal) Occult Blood 1+ (Abnormal) Ketones Negative (Normal) Glucose Negative (Normal) Protein Negative (Normal) WBC Esterase 2+ (Abnormal) Appearance Clear (Normal) Urine-Color Yellow (Normal) pH 5.0 (Normal) Range: 5.0-7.5 Specific Doniphan 1.020 (Normal) Range: 1.005-1.030 :25 TSH (27715) Comments: PATIENT WAS FASTINGPERFORMED BY: [facility] [id number] TSH 1.210 {uIU/mL} (Normal) Range: 0.450-4.500 :25 Metabolic Panel, Comprehensive Comments: PATIENT WAS FASTINGPERFORMED BY: [facility] [id number] (26103) ALT (SGPT) 14 [iU]/L (Normal) Range: 0-32 [...] 8-27 Glucose 82 mg/dL (Normal) Range: 65-99 0-Agi-118505:25 CBC & PLATELETS (AUTO) (45567) Comments: PATIENT WAS FASTINGPERFORMED BY: [facility]Co[facility] HospitalTszpyz6900 [facility] [id number] Platelets 323 {x10E3/uL} (Normal) Range: 150-379 RDW 14.0 % (Normal) Range: 12.3-15.4 MCHC 34.0 g/dL (Normal) Range: 31.5-35.7 MCH 29.9 pg (Normal) Range: 26.6-33.0 MCV 88 fL (Normal) Range: 79-97 Hematocrit 40.0 % (Normal) Range: 34.0-46.6 Hemoglobin 13.6 g/dL (Normal) Range: 11.1-15.9 RBC 4.55 {x10E6/uL} (Normal) Range: 3.77-5.28 WBC 4.7 {x10E3/uL} (Normal) Range: 3.4-10.8 9-Buv-488960:25 LIPID PANEL (23624) Comments: PATIENT WAS FASTINGPERFORMED BY: [facility]CabbageSaint James HospitalWpuril1880 [facility] [id number] LDL/HDL Ratio 1.1 {ratio} (Normal) Range: 0.0-3.2 Comments: LDL/HDL Ratio Men Women 1/2 Avg.Risk 1.0 1.5 Av g.Risk 3.6 3.2 2X Avg.Risk 6.2 5.0 3X Avg.Risk 8.0 6.1 LDL Cholesterol Calc 81 mg/dL (Normal) Range: 0-99 VLDL Cholesterol Marysol 16 mg/dL (Normal) Range: 5-40 HDL Cholesterol 72 mg/dL (Normal) Triglycerides 78 mg/dL (Normal) Range: 0-149 Cholesterol, Total 169 mg/dL (Normal) Range: 100-199 4-Sqe-997823:13 Urinalysis, Office (91603) UA - LEUKOCYTE ESTERASE Negative (Normal) UA - NITRITE Negative (Normal) URINE UROBILINGN RONALD TIMED Normal mg/dL (Normal) UA - PROTEIN Negative mg/dL (Normal) UA - PH 6 (Abnormal) UA - BLOOD Hemolyzed Small (Normal) UA - SPECIFIC GRAVITY 1.025 (Normal) UA - KETONES Negative mg/dL (Normal) UA - BILIRUBIN Negative (Normal) UA - GLUCOSE Negative (Normal) 18-Gem-89455:51 CBC & PLATELETS (AUTO) (19218) Comments: PATIENT NOT FASTINGPERFORMED BY: [facility]CoSaint [facility] HospitalYwdhks7296 [facility] [id number] Platelets 291 {x10E3/uL} (Normal) Range: 150-379 RDW 13.8 % (Normal) Range: 12.3-15.4 MCHC 33.2 g/dL (Normal) Range: 31.5-35.7 MCH 29.7 pg (Normal) Range: 26.6-33.0 MCV 90 fL (Normal) Range: 79-97 Hematocrit 40.7 % (Normal) Range: 34.0-46.6 Hemoglobin 13.5 g/dL (Normal) Range: 11.1-15.9 RBC 4.54 {x10E6/uL} (Normal) Range: 3.77-5.28 WBC 5.7 {x10E3/uL} (Normal) Range: 3.4-10.8 :51 PARATHORMONE (00231) Comments: PATIENT NOT FASTINGPERFORMED BY: [facility] Enkcov8075 [facility] [id number] PTH, Intact 66 pg/mL (Abnormal) Range: 15-65 :00 Urinalysis, Office (32019) UA - LEUKOCYTE ESTERASE Trace (Normal) UA [...] Complete Comments: How was Urine Obtained? CLEAN [facility] [address] [place], [place], [id number] MUCUS, URINE 0 SEEN {/hpf} (Normal) BACTERIA [...] Straw (Normal) :58 CBC W/Diff, Automated Comments: [facility] [address] [place], [place], [address] Absolute Lymph 1.16 {X10_3/ul} (Normal) Range: 0.83-4.51 [...] 4.2-5.4 WBC 3.2 K/mm3 (Abnormal) Range: 4.4-11.0 22-Iev-58814:58 Comprehensive Metabolic Profil Comments: [facility] [address] [place], [place], [address] GAP 8 (Normal) Range: 5-15 CO2 28.0 mmol/L (Normal) Range: 21.0-32.0 CL 104 mmol/L (Normal) Range: 98-107 K 4.0 mmol/L (Normal) Range: 3.5-5.1 NA 140 mmol/L (Normal) Range: 136-145 T BILI 0.90 mg/dL (Normal) Range: 0.20-1.00 ALT 25 U/L (Normal) Range: 13-56 Comments: Please note revised ALT reference range dnltecthq35/28/2018. ALK P 66 U/L (Normal) Range: 45-117 [...] 7-18 GLU 96 mg/dL (Normal) Range: 70-110 30-Xpl-64254:58 Lipase Comments: [facility] [address] [place], [address] LIPASE 211 U/L (Normal) Range: 73-393 2-Erw-261892:30 MICROALBUMIN: CREATININE RATIO Comments: PATIENT NOT FASTINGPERFORMED BY: [facility] Dhlljg3686 [facility] [id number] (47348) AND (24016) Microalb/Creat Ratio 3.2 {mg/g_creat} (Normal) Range: 0.0-30.0 Microalbumin, Urine 4.7 ug/mL (Normal) Creatinine, Urine 145.6 mg/dL (Normal) 9-Npv-295196:30 URINALYSIS (57563) Comments: PATIENT NOT FASTINGPERFORMED BY: [facility] Pelmps1770 [facility] [id number] Microscopic Examination MICNIP (Normal) Comments: Microscopic not indicated and not performed. Nitrite, Urine Negative (Normal) Urobilinogen,Semi-Qn 0.2 mg/dL (Normal) Range: 0.2-1.0 Bilirubin Negative (Normal) Occult Blood Negative (Normal) Ketones Trace (Abnormal) Glucose Negative (Normal) Protein Negative (Normal) WBC Esterase Negative (Normal) Appearance Clear (Normal) Urine-Color Yellow (Normal) pH 5.5 (Normal) Range: 5.0-7.5 Specific Doniphan 1.022 (Normal) Range: 1.005-1.030 4-Dzx-102946:30 TSH (THYROID STIMULATING Comments: PATIENT NOT FASTINGPERFORMED BY: 3dimSaint James HospitalLbewka1745 [facility] [id number] HORMONE) (57711) TSH 0.801 {uIU/mL} (Normal) Range: 0.450-4.500 8-Wqd-219163:30 CBC, PLATELETS & AUT DIFF Comments: PATIENT NOT FASTINGPERFORMED BY: [facility]dimSaint James HospitalOxgnia7513 [facility] [id number] Information: S98538, 203942 (22090) Immature Grans (Abs) 0.0 {x10E3/uL} (Normal) Range: [...] 3.77-5.28 WBC 5.6 {x10E3/uL} (Normal) Range: 3.4-10.8 2-Spf-120616:30 METABOLIC PANEL, COMPREHENSIVE Comments: PATIENT NOT FASTINGPERFORMED BY: [facility] Sqcreb4575 [facility] [id number] (21259) ALT (SGPT) 14 [iU]/L (Normal) Range: 0-32 [...] Glucose, Serum 96 mg/dL (Normal) Range: 65-99 50-Pcz-188859:37 Lipid Panel (77122) Comments: around April 2017; PATIENT WAS FASTINGPERFORMED BY: ROBERT [facility]Flex[facility]6370 [facility] [id number] LDL/HDL Ratio 1.1 {ratio_units} (Normal) Range: 0.0-3.2 Comments: LDL/HDL Ratio Men Women 1/2 Avg.Risk 1.0 1.5 Av g.Risk 3.6 3.2 2X Avg.Risk 6.2 5.0 3X Avg.Risk 8.0 6.1 LDL Cholesterol Calc 77 mg/dL (Normal) Range: 0-99 VLDL Cholesterol Marysol 23 mg/dL (Normal) Range: 5-40 HDL Cholesterol 72 mg/dL (Normal) Triglycerides 116 mg/dL (Normal) Range: 0-149 Cholesterol, Total 172 mg/dL (Normal) Range: 100-199 17-Lkw-238340:37 POTASSIUM SERUM (11950) Comments: Order Date: 02/13/17Order Info: 2823-3 - KOrder Date: 02/13/17Order Info: 2823-3 - [facility] [address] [place], [place], [address] K 4.1 mmol/L (Normal) Range: 3.5-5.1 26-Zjz-648520:20 Microscopic Examination Comments: PATIENT WAS FASTINGPERFORMED BY: LabM[facility] Center6370 [facility] [id number] Bacteria None seen (Normal) Mucus Threads Present (Normal) Epithelial Cells (non renal) 0-10 {/hpf} (Normal) Range: 0 - 10 RBC None seen {/hpf} (Normal) Range: 0 - 2 WBC 0-5 {/hpf} (Normal) Range: 0 - 5 39-Axs-990111:20 METABOLIC PANEL, COMPREHENSIVE Comments: PATIENT WAS FASTINGPERFORMED BY: [facility]6370 [facility] [id number] (49713) ALT (SGPT) 17 [iU]/L (Normal) Range: 0-32 [...] Glucose, Serum 81 mg/dL (Normal) Range: 65-99 26-Ewd-310945:20 URINALYSIS, W/ MICRO (39912) Comments: PATIENT WAS FASTINGPERFORMED BY: LabCoSaint James HospitalHmkkhy2647 [facility] [id number] Microscopic Examination See below: (Normal) Comments: Microscopic was indicated and was performed. Microscopic Examination MICRON (Normal) Comments: Microscopic follows if indicated. Nitrite, Urine Negative (Normal) Urobilinogen,Semi-Qn 0.2 mg/dL (Normal) Range: 0.2-1.0 Bilirubin Negative (Normal) Occult Blood Negative (Normal) Ketones Negative (Normal) Glucose Negative (Normal) Protein Negative (Normal) WBC Esterase Negative (Normal) Appearance Clear (Normal) Urine-Color Yellow (Normal) pH 6.5 (Normal) Range: 5.0-7.5 Specific Don[place]han 1.013 (Normal) Range: 1.005-1.030 21-Nug-296865:20 CBC with auto diff (74967) Comments: PATIENT WAS FASTINGPERFORMED BY: [employer] Wxgrdy8521 [facility] [id number] Immature Grans (Abs) 0.0 {x10E3/uL} (Normal) Range: [...] 3.77-5.28 WBC 6.1 {x10E3/uL} (Normal) Range: 3.4-10.8 93-Tie-866708:20 TSH (56259) Comments: PATIENT WAS FASTINGPERFORMED BY: MyCabbageSaint James HospitalGskczp1123 [facility] [id number] TSH 0.689 {uIU/mL} (Normal) Range: 0.450-4.500 27-Pjj-180282:20 MICROALBUMIN: CREATININE RATIO Comments: PATIENT WAS FASTINGPERFORMED BY: [facility]6370 [facility] [id number] ([id number]) AND (16353) Microalb/Creat Ratio <6.5 {mg/g_creat} (Normal) Range: 0.0-30.0 Microalbumin, Urine <3.0 ug/mL (Normal) Creatinine, Urine 46.2 mg/dL (Normal) 8-Pwl-931868:40 HEPATIC FUNCTION PANEL Comments: PATIENT WAS FASTINGPERFORMED BY: MyCabbageSaint James HospitalEdtauu5792 [facility] [id number] (75501) ALT (SGPT) 38 [iU]/L (Abnormal) Range: 0-32 AST (SGOT) 35 [iU]/L (Normal) Range: 0-40 Alkaline Phosphatase, S 65 [iU]/L (Normal) Range: 39-117 Bilirubin, Direct 0.14 mg/dL (Normal) Range: 0.00-0.40 Bilirubin, Total 0.4 mg/dL (Normal) Range: 0.0-1.2 Albumin, Serum 4.3 g/dL (Normal) Range: 3.6-4.8 Protein, Total, Serum 6.8 g/dL (Normal) Range: 6.0-8.5 :40 LIPID PANEL (98849) Comments: PATIENT WAS FASTINGPERFORMED BY: [facility]FlexM[facility] Center6370 [facility] [id number] LDL/HDL Ratio 1.2 {ratio_units} (Normal) Range: 0.0-3.2 Comments: LDL/HDL Ratio Men Women 1/2 Avg.Risk 1.0 1.5 Av g.Risk 3.6 3.2 2X Avg.Risk 6.2 5.0 3X Avg.Risk 8.0 6.1 LDL Cholesterol Calc 84 mg/dL (Normal) Range: 0-99 VLDL Cholesterol Marysol 20 mg/dL (Normal) Range: 5-40 HDL Cholesterol 73 mg/dL (Normal) Triglycerides 98 mg/dL (Normal) Range: 0-149 Cholesterol, Total 177 mg/dL (Normal) Range: 100-199 0-Yiq-446558:45 Culture, Urine Comments: [facility] [address] [place], [address] CUUR See Note (Normal) Comments: Urine CultureRESULTS [...] >=320 R(NF) indicates non- formulary drug at [facility]. Approval by Infectious Disease Specialist required before non-formulary drugs may be ordered and/or dispensed. 61-Eab-907817:06 Urinalysis, Office (48448) UA - LEUKOCYTE ESTERASE Trace (Normal) UA - NITRITE Positive (Normal) URINE UROBILINGN RONALD TIMED Normal mg/dL (Normal) UA - PROTEIN Negative mg/dL (Normal) UA - PH 6 (Abnormal) UA - BLOOD Hemolyzed Small (Normal) UA - SPECIFIC GRAVITY 1.025 (Normal) UA - KETONES Negative mg/dL (Normal) UA - BILIRUBIN Negative (Normal) UA - GLUCOSE Negative (Normal) 01-Itt-141135:13 CBC, Platelets & Auto Comments: PATIENT WAS FASTINGPERFORMED BY: [facility] Xbjbnz6503 [facility] [id number] Information: [id number] Diff (75840) Immature Grans (Abs) 0.0 {x10E3/uL} (Normal) Range: [...] 3.77-5.28 WBC 7.2 {x10E3/uL} (Normal) Range: 3.4-10.8 83-Pvr-270743:13 TSH (94734) Comments: PATIENT WAS FASTINGPERFORMED BY: [employer]revolution LabCoPolyServe Wnmmwt7571 [facility] [id number] TSH 0.907 {uIU/mL} (Normal) Range: 0.450-4.500 76-Dbe-880439:13 Lipid Panel (30024) Comments: PATIENT WAS FASTINGPERFORMED BY: [employer]revolution LabCoPoly[facility] Lpyvjc4621 [facility] [id number] LDL/HDL Ratio 2.2 {ratio_units} (Normal) Range: 0.0-3.2 [...] Cholesterol, Total 253 mg/dL (Abnormal) Range: 100-199 59-Pfu-933552:13 Metabolic Panel, Comprehensive Comments: PATIENT WAS FASTINGPERFORMED BY: LabCoSaint James HospitalLohsmw0227 [facility] [id number] (51708) ALT (SGPT) 25 [iU]/L (Normal) Range: 0-32 [...] Glucose, Serum 92 mg/dL (Normal) Range: 65-99 73-Unf-577719:58 URINE EPIFANIO CULTURE-RONALD COL Comments: Forward to Dr Eduardo, Urology, [place], [place]; PATIENT NOT FASTINGPERFORMED BY: [facility] Bkutwa0673 [facility] [id number] Information: SRC:URC [id number] COUNT (16978) Result 1 MUG (Normal) Comments: Mixed urogenital flora5,000 Colonies/mL Urine Culture,Comprehensive Final report (Normal) 90-Oll-115710:55 Urinalysis, Office (04067) UA - GLUCOSE Negative (Normal) UA - BILIRUBIN Negative (Normal) UA - KETONES Negative mg/dL (Normal) UA - SPECIFIC GRAVITY 1.025 (Normal) UA - BLOOD Hemolyzed Trace (Normal) UA - PH 6 (Abnormal) UA - PROTEIN Negative mg/dL (Normal) URINE UROBILINGN RONALD TIMED Normal mg/dL (Normal) UA - NITRITE Negative (Normal) UA - LEUKOCYTE ESTERASE Negative (Normal) :01 Vitamin D Hydroxy (13359) Comments: PATIENT NOT FASTINGPERFORMED BY: [facility] Center6370 [facility] [id number] Vitamin D, 25-Hydroxy 33.2 ng/mL (Normal) Range: 30.0-100.0 Comments: Vitamin D deficiency has been defined by the [place] and an Endocrine Society practice guideline as alevel of serum 25-OH vitamin D less than 20 ng/mL (1,2).The Endocrine Society went on to further define vitamin Dinsufficiency as a level between 21 and 29 ng/mL (2).1. IOM ([place] [employer]). 2010. Dietary reference intakes for calcium and D. [place]: The National Academies Press.2. Mica MF, Dami NC, Sheri CHAVEZ, et al. Evaluation, treatment, and prevention of vitamin D deficiency: an Endocrine Society clinical practice guideline. JCEM. 2010; 96(7):1911-30. :01 SPEP (88004) Comments: PATIENT NOT FASTINGPERFORMED BY: [facility]6370 [facility] [id number] Information: [id number] Please note: SPRCS (Normal) Comments: Protein electrophoresis scan will follow via computer, mail, orcourier delivery. A/G Ratio 1.3 (Normal) Range: 0.7-2.0 Globulin, Total 3.2 g/dL (Normal) Range: 2.0-4.5 M-Faisal Not Observed g/dL (Normal) Gamma Globulin 1.1 g/dL (Normal) Range: 0.5-1.6 Beta Globulin 1.1 g/dL (Normal) Range: 0.6-1.3 Avpcw-6-Kvicyikr 0.8 g/dL (Normal) Range: 0.4-1.2 Emvdj-3-Qoyarenr 0.3 g/dL (Normal) Range: 0.1-0.4 Albumin 4.2 g/dL (Normal) Range: 3.2-5.6 Protein, Total, Serum 7.4 g/dL (Normal) Range: 6.0-8.5 :01 TSH (61979) Comments: PATIENT NOT FASTINGPERFORMED BY: [facility] Mztzie9097 [address] [facility] [place] [id number] TSH 0.956 {uIU/mL} (Normal) Range: 0.450-4.500 9-Sky-709558:01 PARATHORMONE (70020) Comments: PATIENT NOT FASTINGPERFORMED BY: quietrevolution [facility] Clkcit2423 [facility] [facility] [place] [id number] PTH, Intact 53 pg/mL (Normal) Range: 15-65 2-Ipz-295063:01 SED RATE ERYTHROCYTE (08574) Comments: PATIENT NOT FASTINGPERFORMED BY: [facility] Lpeagm3788 [facility] [place] [id number] Sedimentation Rate-Westergren 6 mm/h (Normal) Range: 0-40 6-Isk-343939:01 ALKALINE PHOSPHATASE (00557) Comments: PATIENT NOT FASTINGPERFORMED BY: [facility] Noczje7423 [address] [facility] [place] [id number] Alkaline Phosphatase, S 75 [iU]/L (Normal) Range: 39-117 5-Mxu-973055:01 C-REACTIVE PROTEIN (06261) Comments: PATIENT NOT FASTINGPERFORMED BY: [facility] Uweyux0377 [facility] [id number] C-Reactive Protein, Quant 1.5 mg/L (Normal) Range: 0.0-4.9 12-Cpp-465676:10 Urinalysis, Complete Comments: Order Date: 07/26/15How was Urine Obtained? CLEAN CATCHTest performed at:[facility] Wmuyhfkgws4621 [facility] [place] [address] MUCUS, URINE 0 SEEN {/hpf} [...] (Normal) CLARITY Clear (Normal) COLOR Yellow (Normal) 19-Ysf-717266:26 Basic Metabolic Profile (BMP) Comments: Test performed at:[facility] L[address] [place] [address] GAP 6 (Normal) Range: 5-15 [...] Comments: Please note revised CREATININE reference range krctcjyax28/22/2015. BUN 24 mg/dL (Abnormal) Range: 7-18 GLU 91 mg/dL (Normal) Range: 70-110 42-Wst-414862:26 CBC W/Diff, Automated Comments: Test performed at:[facility] [address] [place] [address] Absolute Lymph 1.55 {X10_3/ul} (Normal) Range: 0.83-4.51 [...] 4.2-5.4 WBC 6.7 K/mm3 (Normal) Range: 4.4-11.0 79-Sxk-274291:19 Hepatic Function Panel (7) Comments: PATIENT WAS FASTINGPERFORMED BY: LabCoSaint James HospitalLhfmui5427 [facility] [id number] ALT (SGPT) 17 [iU]/L (Normal) Range: 0-32 AST (SGOT) 24 [iU]/L (Normal) Range: 0-40 Alkaline Phosphatase, S 63 [iU]/L (Normal) Range: 39-117 Bilirubin, Direct 0.16 mg/dL (Normal) Range: 0.00-0.40 Bilirubin, Total 0.7 mg/dL (Normal) Range: 0.0-1.2 Albumin, Serum 4.6 g/dL (Normal) Range: 3.6-4.8 Protein, Total, Serum 7.2 g/dL (Normal) Range: 6.0-8.5 32-Xiz-904156:19 Lipid Panel With LDL/HDL Comments: PATIENT WAS FASTINGPERFORMED BY: [facility] Epxvbh8959 [facility] [id number] Information: [id number] Ratio LDL/HDL Ratio 2.6 {ratio_units} (Normal) Range: [...] Cholesterol, Total 257 mg/dL (Abnormal) Range: 100-199 70-Dkb-267978:14 Culture, Urine Comments: Test performed at:[facility] [address] [place] [address] CUUR See Note (Normal) Comments: [...] $ <=20 S(NF) indicates non-formulary drug at [facility]. Approval by Infectious Disease Specialist required before non- formulary drugs may be ordered and/or dispensed. 75-Lby-592801:14 Urinalysis, Routine (Dipstick) Comments: How was Urine Obtained? CLEAN CATCHTest performed at:[facility] [address] [place] [address] LEUK ESTERASE 100 /ul (Abnormal) OCCULT BLOOD-UR 10 /ul (Abnormal) NITRITE UR Positive (Abnormal) UROBILI Normal mg/dL (Normal) PROT DIPSTX Negative mg/dL (Normal) pH UR 7.0 (Normal) Range: 5.0 - 8.0 SP.GR. DIPSTX 1.010 (Normal) Range: 1.002-1.030 KETONE UR Negative mg/dL (Normal) BILIRUBIN URINE Negative mg/dL (Normal) GLUCOSE, UR Normal mg/dL (Normal) CLARITY Sl. Cloudy (Normal) COLOR Yellow (Normal) 29-Nxs-631971:16 URINE EPIFANIO CULTURE (RONALD Comments: PATIENT NOT FASTINGPERFORMED BY: LabCoSaint James HospitalArkezv2014 [facility] [id number] Information: SRC:UR [id number] COL COUNT) (13613) Result 1 CNSNSS (Abnormal) Comments: Coagulase negative [...] S Urine Final report Culture,Comprehens (Abnormal) tito 6-Tmy-420264:25 Culture, Urine Comments: Test performed at:[facility] [address] [place] [address] CUUR See Note (Normal) Comments: Order Date: [...] $ <=20 S(NF) indicates non-formulary drug at [facility]. Approval by Infectious Disease Specialist required before non-formulary drugs may be ordered and/or dispensed. :24 MICROALBUMIN: CREATININE RATIO Comments: PATIENT WAS FASTINGPERFORMED BY: 3dimUnion County General HospitalPtgyfx2795 [facility] [id number] (59801) AND (24170) Microalb/Creat Ratio 1.3 {mg/g_creat} (Normal) Range: 0.0-30.0 Microalbumin, Urine 1.5 ug/mL (Normal) Range: 0.0-17.0 Creatinine, Urine 118.7 mg/dL (Normal) Range: 15.0-278.0 :24 METABOLIC PANEL, COMPREHENSIVE Comments: PATIENT WAS FASTINGPERFORMED BY: MyCabbageSaint James HospitalHvnkad3492 [facility] [id number] (73390) ALT (SGPT) 22 [iU]/L (Normal) Range: 0-32 [...] Glucose, Serum 82 mg/dL (Normal) Range: 65-99 42-Tkb-54241:24 LIPID PANEL (64052) Comments: PATIENT WAS FASTINGPERFORMED BY: [facility]6370 [facility] [id number] LDL/HDL Ratio 2.6 {ratio_units} (Normal) Range: 0.0-3.2 Comment: LDLCOM (Normal) Comments: Possible Familial Hypercholesterolemia. FH should be suspected whenfasting LDL cholesterol is above 189 mg/dL or non-HDL cholesterolis above 219 mg/dL. A family history of high cholesterol and heartdise ase in 1st degree relatives should be collected. J Clin Rlseycf5357;5:133-140 LDL Cholesterol Calc 206 mg/dL (Abnormal) Range: 0-99 VLDL Cholesterol Marysol 16 mg/dL (Normal) Range: 5-40 HDL Cholesterol 79 mg/dL (Normal) Comments: According to ATP-III Guidelines, HDL-C >59 mg/dL is considered anegative risk factor for CHD. Triglycerides 82 mg/dL (Normal) Range: 0-149 Cholesterol, Total 301 mg/dL (Abnormal) Range: 100-199 41-Bge-70454:24 CBC WITH MANUAL DIFF Comments: PATIENT WAS FASTINGPERFORMED BY: [facility]6370 [facility] [id number] Information: [id number] (15078) Immature Grans (Abs) 0.0 {x10E3/uL} (Normal) Range: [...] 3.77-5.28 WBC 4.8 {x10E3/uL} (Normal) Range: 3.4-10.8 6-Lvl-219954:31 BILAT SCRN DIGITAL & CAD Radiology Report [...] Amor M.D.January 31, 2013 at 1:16:07 PM [phone] Signed GP/GP If you are the referring physician and wou ld like to consult with theradiologist who provided this interpretation, please contact Yan Enriquez at [phone]. If this radiologist is unavailable, youwill be directed to another radiol ogist to assist. If you are a patient with a question regarding this report, pleasecontactyour referring physician directly. Professional Interpretation Provided By: [employer], Phone ,Fa x [phone] These documents contain legally protected and confidential [...] 01/31/13 1326 Sign by: Tylor Amor MD 1-Nzw-288868:31 DEXA BONE DENSITY STUDY (HP) Radiology Report [...] Amor M.D.January 31, 2013 at 1:13:05 PM [id number] Signed GP/GP If you are the referring ph ysician and would like to consult with theradiologist who provided this interpretation, please contact Yan Enriquez at [phone]. If this radiologist is unavailable, youwill be directed to another radiologist to assist. If you are a patient with a question regarding this report, pleasecontactyour referring physician directly. Professional Interpretation Provided By: [employer], Phone , These documents contain legally protected [...] 01/31/13 1318 Sign by: Tylor Amor MD 03-Wqj-80151:51 LIPID PANEL (39214) Comments: PATIENT WAS FASTINGPERFORMED BY: [facility]6370 [facility] [id number] Information: [id number] LDL Cholesterol Calc 162 mg/dL (Abnormal) Range: 0-99 LDL/HDL Ratio 2.7 {ratio_units} (Normal) Range: 0.0-3.2 VLDL Cholesterol Marysol 24 mg/dL (Normal) Range: 5-40 HDL Cholesterol 61 mg/dL (Normal) Comments: According to ATP-III Guidelines, HDL-C >59 mg/dL is considered anegative risk factor for CHD. Triglycerides 122 mg/dL (Normal) Range: 0-149 Cholesterol, Total 247 mg/dL (Abnormal) Range: 100-199 76-Esd-104914:18 Microscopic Examination Comments: PATIENT WAS FASTINGPERFORMED BY: [facility]6370 [facility] [id number] Bacteria None seen (Normal) Epithelial Cells (non renal) 0-10 {/hpf} (Normal) Range: 0 - 10 RBC 0-3 {/hpf} (Normal) Range: 0 - 3 WBC 0-5 {/hpf} (Normal) Range: 0 - 5 71-Crv-609214:18 METABOLIC PANEL, COMPREHENSIVE Comments: PATIENT WAS FASTINGPERFORMED BY: [facility]6370 [facility] [id number] (99399) ALT (SGPT) 16 [iU]/L (Normal) Range: 0-40 [...] Glucose, Serum 88 mg/dL (Normal) Range: 65-99 56-Vyq-661305:18 URINALYSIS, W/ MICRO (86624) Comments: PATIENT WAS FASTINGPERFORMED BY: [facility] [id number] Microscopic Examination See below: (Normal) Microscopic Examination MICRON (Normal) Comments: Microscopic follows if indicated. Nitrite, Urine Negative (Normal) Urobilinogen,Semi-Qn 0.2 mg/dL (Normal) Range: 0.0-1.9 Bilirubin Negative (Normal) Occult Blood Negative (Normal) Ketones Negative (Normal) Glucose Negative (Normal) Protein Negative (Normal) WBC Esterase Negative (Normal) Appearance Clear (Normal) Urine-Color Yellow (Normal) pH 5.5 (Normal) Range: 5.0-7.5 Specific Doniphan 1.018 (Normal) Range: 1.005-1.030 28-Xzf-083781:18 LIPID PANEL (11355) Comments: PATIENT WAS FASTINGPERFORMED BY: [facility] [id number] LDL/HDL Ratio 2.8 {ratio_units} (Normal) Range: 0.0-3.2 [...] 100-199 Comments: Please note reference interval change 12-Nbd-515454:18 CBC WITH MANUAL DIFF Comments: PATIENT WAS FASTINGPERFORMED BY: ROBERT LabCoSaint James HospitalUxupcv0354 [facility] [id number] Information: [id number] (18476) Immature Grans (Abs) 0.0 {x10E3/uL} (Normal) Range: [...] 3.77-5.28 WBC 4.4 {x10E3/uL} (Normal) Range: 4.0-10.5 26-Dvk-43668:52 Lipid Panel (93365) Comments: PATIENT WAS FASTINGPERFORMED BY: LabCoSaint James HospitalWslmwj5182 [address] [place] [id number] Information: [id number] LDL/HDL Ratio 2.2 {ratio_units} (Normal) Range: 0.0-3.2 LDL Cholesterol Calc 146 mg/dL (Abnormal) Range: 0-99 VLDL Cholesterol Marysol 23 mg/dL (Normal) Range: 5-40 HDL Cholesterol 67 mg/dL (Normal) Comments: According to ATP-III Guidelines, HDL-C >59 mg/dL is considered anegative risk factor for CHD. Triglycerides 115 mg/dL (Normal) Range: 0-149 Cholesterol, Total 236 mg/dL (Abnormal) Range: 100-199 41-Tit-676342:32 BILAT SCRN DIGITAL & CAD Radiology Report [...] radiologist regarding this report, please call our 35Q0jjntlau line @ Dictated on 01/18/12 1254 [address] Mt COLLINS,Yordyranscribed on 01/18/12 1457 by ITS IMPORTSign by Tylor Silverio MD on 01/18/12 1458 Sign by: Mt COLLINSTylor 30-Yqi-972661:12 POTASSIUM SERUM (20542) Comments: PATIENT NOT FASTINGPERFORMED BY: ROBERT [facility] Nafusb86[address] [place] [id number] Information: [id number] Potassium, Serum 5.2 mmol/L (Normal) Range: 3.5-5.2 [...] 200-240 mg/dL Borderline >240 mg/dL High Risk 69-Mgx-150447:37 CBCD,SMEAR DIFF RED CELL MORPH SeeNote {NORMAL} [...] Serum 9.8 mg/dL (Normal) Comments: PERFORMED BY: [facility] [id number] 59 Range: 8.6-10.2 : Phosphorus, Serum 3.6 mg/dL (Normal) Comments: PERFORMED BY: [facility] [id number] 59 Range: 2.5-4.5 :59 Protein Electro, Random Urine Comments: PERFORMED BY: [employer] Rolon [facility]High[facility] [id number] Please note: SPRCS (Normal) Comments: Protein electrophoresis scan will follow via computer, mail, orcourier delivery. Gamma Globulin, U 19.1 % (Normal) M-Faisal, % Not Observed % (Normal) Beta Globulin, U 32.4 % (Normal) Lwgvx-2-Khnmojvn, U 20.5 % (Normal) Fbmzl-4-Bjutojkv, U 4.1 % (Normal) Albumin, U 23.9 % (Normal) Protein,Total,Urine 6.5 mg/dL (Normal) Range: 0.0-15.0 :59 Protein Electro.,S Comments: PERFORMED BY: [employer] Rolon [facility]ixHigh[facility] [id number] Please note: SPRCS (Normal) Comments: Protein electrophoresis scan will follow via computer, mail, orcourier delivery. A/G Ratio 1.2 (Normal) Range: 0.7-2.0 Globulin, Total 3.2 g/dL (Normal) Range: 2.0-4.5 M-Faisal Not Observed g/dL (Normal) Bjjsv-7-Zoaqprjh 0.2 g/dL (Normal) Range: 0.1-0.4 Nqlne-0-Gnvyhhap 0.8 g/dL (Normal) Range: 0.4-1.2 Beta Globulin 1.1 g/dL (Normal) Range: 0.6-1.3 Gamma Globulin 1.1 g/dL (Normal) Range: 0.5-1.6 Albumin 3.9 g/dL (Normal) Range: 3.2-5.6 Protein, Total, Serum 7.1 g/dL (Normal) Range: 6.0-8.5 PTH, Intact 27 pg/mL (Normal) Comments: PERFORMED BY: VIPTALON [facility] [id number] 5:59 Range: 15-65 Sedimentation 5 mm/h (Normal) Comments: PERFORMED BY: VIPTALON [facility] [id number] 5:59 Rate-Westergren Range: 0-30 TSH 1.050 {uIU/mL} Comments: PERFORMED BY: VIPTALON [facility] [id number] 5:59 (Normal) Range: 0.450-4.500 Vitamin D, 25-Hydroxy 39.3 ng/mL Comments: PERFORMED BY: [employer]6370 [facility] [id number] 5:59 (Normal) Range: 32.0-100.0 Comments: Recent studies [...] be sent to the patient by the doctors hospitali lity within 30 days. Approximately 10% of breast cancers are not detected by mammography. Anormal mammogram should not delay biopsy of a clinically suspiciousabnormality. Dictated on 12/30/10 1348 Yordy Ortizranscribed on 01/05/11 1047 by ITS IMPORTSign by Tylor Amor on 01/05/11 1048 Sign by: Tylor Amor 2-Mqv-207016:54 DEXA BONE DENSITY STUDY (HP) Radiology Report See Note (Normal) Comments: CLINICAL:Female, 60 years old. The patient is postmenopausal. EXAMINATION:DUAL ENERGY X-RAY ABSORPTIOMETRY / DEXA. TECHNIQUE:Bone Mineral Density (BMD) measurements of lumbar spine and bila teralhipswer e obtained using a Pulse 8 scanner.. COMPARISON:Comparison is made with prior study [...] on 12/30/10 1407 Sign by: Tylor Amor 7-Tmu-295215:03 METABOLIC PANEL, COMPREHENSIVE Comments: PATIENT WAS FASTINGPERFORMED BY: LabCoSaint James HospitalIarkan5686 [facility] [id number] (42647) ALT (SGPT) 17 [iU]/L (Normal) Range: 0-40 [...] Glucose, Serum 97 mg/dL (Normal) Range: 65-99 3-Evg-314672:03 LIPID PANEL (20364) Comments: PATIENT WAS FASTINGPERFORMED BY: [employer]6370 [address] [id number] LDL Cholesterol Calc 176 mg/dL (Abnormal) Range: [...] MANUAL DIFF Comments: PATIENT WAS FASTINGPERFORMED BY: [employer]6370 [facility] [id number] Information: [id number] (73403) Baso (Absolute) 0.1 {x10E3/uL} (Normal) Range: 0.0-0.2 [...] COMPREHENSIVE Comments: PATIENT WAS FASTINGPERFORMED BY: LabCoSaint James HospitalHukrnq7658 [facility] [id number] (03805) ALT (SGPT) 23 [iU]/L (Normal) Range: 0-40 [...] mg/dL (Normal) Range: 65-99 29-Jun-20108:38 LIPID PANEL (83280) Comments: PATIENT WAS FASTINGPERFORMED BY: LabCoUnion [facility] General HospitalWnztdw5936 [facility] [id number] LDL Cholesterol Calc 143 mg/dL (Abnormal) Range: [...] three months (approximately); PATIENT WAS FASTINGPERFORMED BY: LabMym[facility] Center6370 [facility] [id number] Information: ADD [id number] AND DRAW FEE 99 2389 (86574) Baso (Absolute) 0.0 {x10E3/uL} (Normal) Range: 0.0-0.2 [...] (Normal) GLU 91 mg/dL (Normal) Range: 70-110 07-Giv-94646:00 EPIFANIO CULTURE-OTHER (19099) Comments: PATIENT NOT FASTINGPERFORMED BY: [facility] Aezaio9317 [facility] [id number] Information: SRC: THROAT Result 1 RRF (Normal) Comments: Routine respiratory michelle Upper Respiratory Culture Final report (Normal) 51-Qzt-112507:43 Rapid Strep Test, Office (02475) Rapid Strep Test, Office Negative (Normal) 13-Tir-08406:35 CBCD,SMEAR DIFF CELLS COUNTED 100 (Normal) EOS [...] Report See Note (Normal) Comments: Exam Number: [id number] CLINICAL:Syncope and CT BRAIN WITH AND WITHOUT [...] no rmal enhancement of [place] without a demonstrated aneurysm. Normal osseous calvarium, visualized facial bones, central skull base, and temporal bones without a demonstrated fracture or de structive process. Normal soft tissue structures of the calvarium. Normal visualized paranasal sinuses without mucosal thickening or air-fluid levels. IMPRESSION:Normal enhanced CT scan of the brain wi thout an acute or evolving intracranial process. Reported By: JERILYN PERRY 56-Fks-[id number]: GLU GTT-5 HOUR 73 mg/dL (Normal) Comments: 5HR GTT GLU 5 HR GLU GTT-5 HOUR from 921:C54802I. 37 Range: 70-110 : GLU GTT-4 HOUR <TEST NOT PERFORMED> Comments: 5HR GTT GLU 4 HR GLU GTT-4 HOUR from 921:D89865P. 45 mg/dL (Normal) Range: 70-110 : GLU GTT-3 HOUR 78 mg/dL (Normal) Comments: 5HR GTT GLU 3 HR GLU GTT-3 HOUR from 921:M79984Z. 40 Range: 70-110 67-Wnq-413386: GLU GTT-2 HOUR 134 mg/dL (Abnormal) Comments: 5HR GTT GLU 2 HR GLU GTT-2 HOUR from 921:F47277C. 40 Range: 70-120 :4 GLU GTT-1 HOUR 155 mg/dL (Normal) Comments: 5HR GTT GLU 1 HR GLU GTT-1 HOUR from 0922:V36433P. 0 Range: 120-170 :0 GLU GTT-30 min. 180 mg/dL (Abnormal) Comments: 5HR GTT GLU 1/2 HR GLU GTT-30 min. from 0922:M23948X. 8 Range: 110-170 Comments: SPECIMEN GROSSLY HEMOLYZED :3 GLU GTT-FASTING 104 mg/dL (Normal) Comments: 5HR GTT FASTING GLU GTT-FASTING from 0922:L30155M. 5 Range: 70-110 Comments: GLUCOSE TOLERANCE TEST Reference Interval Non- Adults Fasting 70 - 110 30 minutes 110 - 170 1 hour 120 - 170 2 hour 70 - 120 3 hour 70 - 110 4 hour 70 - 110 5 hour 70 - 110 :3 BEDSIDE GLU 97 mg/dL (Normal) Range: 70-110 3 Comments: Policy and Physicians Orders followed 18-Wnq-173161:47 Urinalysis, Office (90134) UA - BILIRUBIN Small (Normal) UA - BLOOD Hemolyzed Small (Normal) UA - GLUCOSE Negative (Normal) UA - KETONES Negative mg/dL (Normal) UA - LEUKOCYTE ESTERASE Small (Normal) Comments: aw UA - NITRITE Negative (Normal) UA - PH 5.0 (Normal) UA - PROTEIN Negative mg/dL (Normal) UA - SPECIFIC GRAVITY 1.025 (Normal) URINE UROBILINGN RONALD TIMED Normal mg/dL (Normal) 95-Lpv-622250:23 UNILAT RT DIAG DIGITAL & CAD Radiology Report See Note (Normal) Comments: Exam Number: [id number] MAMMOGRAM, UNILATERAL RIGHT DIAGNOSTIC DIGITAL AND CAD [...] werealso e xamined with computer-aided detection software ([employer].). Reported By: AUBRIE CROW M.D. 29-Dnr-704779:19 ABDOMEN W/WO IV CONTRAST Radiology Report See Note (Normal) Comments: Exam Number: [id number] CLINICAL:Liver lesion CT ABDOMEN WITH AND WITHOUT [...] sponge kidneys. Reported By: GREGG GLEZ M.D. 75-Jky-13718:28 SERUM CRE & GFR Comments: CALL RESULTS TO [phone] CREAT,SERUM 0.8 mg/dL (Normal) Range: 0.6-1.0 EST GFR 78 mL/min (Normal) EST GFR - AA 95 mL/min (Normal) 56-Til-49757:29 CERV SPINE,MIN 4 VIEWS Radiology Report See Note (Normal) Comments: Exam Number: [id number] CERVICAL SPINE SERIES, MULTIPLE VIEWS INCLUDING BILATERAL [...] spine series. Reported By: EMMA JETT M.D. 7-Nlv-707840:16 UNILAT RT DIAG DIGITAL & CAD Radiology Report See Note (Normal) Comments: Exam Number: [id number] MAMMOGRAM, UNILATERAL RIGHT DIAGNOSTIC DIGITAL AND CAD [...] werealso examined with computer-aided detection software ([employer] Reported By: AUBRIE CROW M.D. 42-Dba-623801:46 BILAT SCRN DIGITAL & CAD Radiology Report See Note (Normal) Comments: Exam Number: [id number] BILATERAL SCREENING MAMMOGRAPHY HISTORYRoutine screening. COMPARISONComparison is [...] Elsewhere no suspiciouscluster of calcification, area of dot net architect ural distortion, orthree-dimensional spiculated masses. IMPRESSION1. [...] mammogramswere also examined with computer- aided detection software([employer] Reported By: CASSIE QUINTEROS M.D. 16-Kmv-701627:17 LIPID CHOL 223 mg/dL (Abnormal) Comments: <200 [...] mg/dL VLDL 19 mg/dL (Normal) Range: 5-40 30-Ekc-583752:17 LIVER ALB 3.5 g/dL (Normal) Range: 3.4-5.0 [...] T PROT 7.0 g/dL (Normal) Range: 6.4-8.2 10-Rjp-034777:29 MAMM, UILAT DIAG DIGITAL & CAD Radiology Report See Note (Normal) Comments: Exam Number: [id number] MAMMOGRAM, LEFT UNILATERAL DIAGNOSTIC DIGITAL AND CAD [...] mammograms werealso examined with computer-aided detection software ([employer] Reported By: AUBRIE CROW M.D. :40 MAMM, BILAT SCRN DIGITAL & CAD Radiology Report See Note (Normal) Comments: Exam Number: [id number] MAMMOGRAM, BILATERAL SCREENING DIGITAL & CAD Full [...] mammograms werealso examined with computer-aided detection software ([employer] Reported By: AUBRIE CROW M.D. :58 [...] T PROT 7.6 g/dL (Normal) Range: 6.4-8.2 42-Hzu-209510:10 PFLIP CHOL 231 mg/dL (Abnormal) Comments: <200 [...] mg/dL VLDL 20 mg/dL (Normal) Range: 5-40 24-Adk-446162:10 ROUTINE UA BILIRUBIN URINE SeeNote (Normal) Comments: [...] Indication: Low back pain Planned Observations IRON ([id number])Indication: Anemia On: 26-Wig-515967:06 Request CBC, Platelets & Auto Diff ([id number])Indication: Anemia On: 94-Pbq-076992:05 Request MICROALBUMIN: CREATININE RATIO (26086) AND (91432)Indication: Benign essential hypertension On: 52-Kcr-085529:03 Request Comments: Jul 2017 URINALYSIS (69054)Indication: Benign essential hypertension On: :03 Request Comments: Jul 2017 TSH ([id number])Indication: Benign essential hypertension On: :03 Request Comments: Jul 2017 CBC, Platelets & Auto Diff ([id number])Indication: Benign essential hypertension On: :03 Request Comments: Jul 2017 Metabolic Panel, Comprehensive (93597)Indication: Benign essential hypertension On: :02 Request Comments: Jul 2017 URINALYSIS, W/ MICRO ([id number])Indication: Benign essential hypertension On: :22 Request METABOLIC PANEL, COMPREHENSIVE (19631)Indication: Benign essential hypertension On: :22 Request LIPID PANEL (66159)Indication: Benign essential hypertension On: : Request CBC with auto diff (65183)Indication: Benign essential hypertension On: :22 Request Blood Glucose , Office (62779)Indication: SYNCOPE, NOS On: 13-Wlt-370654:23 Request LIPID PANEL (24566)Indication: Hyperlipidemia On: :37 Request HEPATIC FUNCTION PANEL (47685)Indication: Hyperlipidemia On: 04-Nim-138745:37 Request CALCIFIDIOL (89130) VIT D 25Indication: Osteoporosis On: :50 Request CALCIUM SERUM (76966)Indication: Osteoporosis On: 01-Whc-745655:48 Request TSH (42925)Indication: Osteoporosis On: :48 Request UPEP (77691)Indication: Osteoporosis On: :48 Request SPEP (02765)Indication: Osteoporosis On: :47 Request SED RATE ERYTHROCYTE (68830)Indication: Osteoporosis On: :47 Request PHOSPHORUS (11442)Indication: Osteoporosis On: 29-Ryh-590930:47 Request PARATHORMONE (37209)Indication: Osteoporosis On: :47 Request URINALYSIS, W/ MICRO (82902)Indication: Benign essential hypertension On: :00 Request CBC with manual diff (43600)Indication: Benign essential hypertension On: :40 Request Metabolic Panel, Comprehensive (70935)Indication: Hyperkalemia On: :40 Request Lipid Panel (28787)Indication: Hypercholesterolemia On: :40 Request METABOLIC PANEL, COMPREHENSIVE (93722)Indication: Hypercholesterolemia On: :16 Request LIPID PANEL (54818)Indication: Hypercholesterolemia On: 84-Obp-649086:16 Request Comments: in three months (approximately) Metabolic Panel, Basic (57788)Indication: Benign essential hypertension On: :15 Request Comments: 2 weeks GLUCOSE TOLERANCE TEST (GTT) 5 hour (61547)Indication: SYNCOPE, NOS On: 55-Llb-199607:49 Request Blood Glucose , Office (65955)Indication: SYNCOPE, NOS On: 33-Fac-462472:47 Request Comments: 92 URINALYSIS W/O MICRO (46559)Indication: Benign essential hypertension On: 96-Fgq-895018:35 Request METABOLIC PANEL, COMPREHENSIVE (13587)Indication: Benign essential hypertension On: 87-Yme-226849:35 Request LIPID PANEL (81984)Indication: Benign essential hypertension On: :35 Request CBC WITH MANUAL DIFF (46890)Indication: Benign essential hypertension On: 90-Hcd-465718:34 Request MICROALBUMIN: CREATININE RATIO (99604) AND (04373)Indication: Benign essential hypertension On: 32-Lhc-631102:08 Request METABOLIC PANEL, COMPREHENSIVE (31899)Indication: Benign essential hypertension On: 13-Egh-381434:08 Request LIPID PANEL (79361)Indication: Benign essential hypertension On: 92-Bnb-762911:08 Request CBC WITH MANUAL DIFF ([id number])Indication: Benign essential hypertension On: 86-Oun-939554:08 Request CBC (Auto) (00643)Indication: Hypercholesterolemia On: 6-Wvc-820840:47 Request Metabolic Panel, Comprehensive (86281)Indication: Hypercholesterolemia On: 1-Ucn-520925:47 Request Lipid Panel (93928)Indication: Hypercholesterolemia On: 1-Vhb-582831:46 Request Comments: in three months (approximately) HEPATIC FUNCTION PANEL (06923)Indication: Hypercholesterolemia On: 90-Gae-569689:21 Request LIPID PANEL ([id number])Indication: Hypercholesterolemia On: 21-Tmo-500614:21 Request Comments: in six months Planned Encounters [...] 19-Feb-2018 Intent Peggy ASH MIHIRPeggy Wax Currettes (97312)By: Slarb FISHER POUND NET OR TRAP, On: 26-Jan-2018 Intent Reyna Ear Irrigation (49574)By: Slarb On: 26-Jan-2018 Intent FISHER POUND NET OR TRAP, Reyna PARATHYROID SCAN WITH MIBI AND I-123 On: 14-Jan-2018 Intent (24699)By: Oren ASHPeggy MIHIRPeggy Toradol Injection, 30 mg (J1885)By: On: 12-Jan-2018 Intent Oren ASH Peggy Saldana Sydneetomstanley AHS Peggy Saldana SCREENING DIGITAL TOMOSYNTHESIS OF On: 06-Sep-2017 Intent BREAST (60256)By: Oren ASH Thuy Citomstanley ASH Thuy DEXA SCAN AXIAL SKELETON (11871)By: On: 06-Sep-2017 Intent Oren ASH Peggy Saldana Sydneetomstanley ASH Thuy Holter Monitor 24 hrsBy: Oren ASH, On: 23-Jun-2017 Intent Peggy Saldana Oren ASH Thuy ELECTROCARDIOGRAM, COMPLETE (ECG) On: 23-Jun-2017 Intent (76081)By: Oren ASH ThuyLes Lott CNP Thuy ELECTROCARDIOGRAM, COMPLETE (ECG) On: 10-Aug-2016 Intent (88487)By: Peggy Lott CNP, CNP Thuy ELECTROCARDIOGRAM, COMPLETE (ECG) On: 20-Jul-2016 Intent (22324)By: Oren ASH ThuyLes Lott CNP Thuy MAMMOGRAM BREAST BILATERAL SCREENING On: 20-Jul-2016 Intent DIGITAL (96517)By: Peggy Lott CNP, CNP Peggy Saldana INJECTION, PROLIA (J0897)By: Iris On: 16-Oct-2015 Intent Silvana COLLINS Comments: Lot:[id number]:05/14Dose:60mg/mlRoute:sub qSite:l armGiven By:JKMVIS signed DEXA SCAN AXIAL SKELETON (02198)By: On: 08-Jun-2015 Intent Silvana Simmons MD MAMMOGRAM, SCREENING, BOTH BREAST On: 08-Jun-2015 Intent (02272)By: Silvana Simmons MD Echo CompleteBy: Silvana Simmons MD On: 10-Nov-2014 Intent Holter Monitor 24 hrsBy: Iris COLLINS, On: 10-Nov-2014 Intent Silvana Holder Carotid DopplerBy: Silvana Simmons MD On: 10-Nov-2014 Intent M FLU VAC, SPLIT, >3 YEARS, INTRAMUSC On: 26-Sep-2013 Intent (26151)By: Silvana Simmons MD Comments: Lot #:[id number] date:05.10Amount given:0.5mlRoute: IMSite given:L DltdGiven by: Paige ANAYA and ABN signed IMMUNIZ ADMNIN, 1 VAC, SNGL/COMBO On: 26-Sep-2013 Intent (95460)By: Silvana Simmons MD EKG (82932)By: PAIGE Rees On: 26-Sep-2013 Intent Eprescribed prescriptions (G8553)By: On: 12-Feb-2013 Intent Radha Corrales LPN L Ear Irrigation (37856)By: Lucio On: 18-Jan-2013 Intent Jayde JONES Comments: Ear Irrigation performed on: r earAmount/color removed cerumen:brownish moderate amountOUtcome:pt tolerated Used wax curettes Wax CurettesBy: Jayde Valdes LPN On: 18-Jan-2013 Intent Phenergan Injection, up to 50 mg On: 15-Jan-2013 Intent (J2550)By: Peggy Lott CNP Comments: give 25mg IMLot #[id number]-left hipDose-25mggiven by: Claudia Browne LPN CNP, Mary E IMMUNIZ ADMNIN, 1 VAC, SNGL/COMBO On: 14-Aug-2012 Intent (85493)By: Silvana Simmons MD FLU VAC, SPLIT, >3 YEARS, INTRAMUSC On: 14-Aug-2012 Intent (56978)By: Silvana Simmons MD DXA, BONE DENSITY, AXIAL SKELETON On: 14-Aug-2012 Intent (03128)By: Silvana Simmons MD MAMMOGRAM, SCREENING, BOTH BREASTS On: 14-Aug-2012 Intent (65402)By: Silvana Simmons MD Breast Screening - BilateralBy: On: 09-Jan-2012 Intent Silvana Simmons MD EKG (23998)By: Jayde Valdes LPN On: 31-Oct-2011 Intent Comments: sinus rhythm , borderline T abnormal ant leads MAMMOGRAM, SCREENING, BOTH BREASTS On: 18-Nov-2010 Intent (77536)By: Silvana Simmons MD DXA, BONE DENSITY, AXIAL SKELETON On: 18-Nov-2010 Intent (78477)By: Silvana Simmons MD Wax CurettesBy: PAIGE Rees On: 26-Mar-2010 Intent Ear Irrigation (96886)By: Cabrera On: 26-Mar-2010 Intent PAIGE SPECIMEN HNDLNG/TRNSPRT, OFFC > LAB On: 24-Nov-2009 Intent (08209)By: PAIGE Rees EEGBy: Peggy Lott CNP, CNP, On: 12-Aug-2009 Intent Peggy Saldana Holter Moniter (08752)By: Ciesa On: 12-Aug-2009 Intent Peggy ASH CNP, Mary E CT - Brain/HeadBy: Peggy Lott CNP On: 12-Aug-2009 Intent Peggy Lott CNP Bio Z (57091)By: Peggy Lott CNP On: 12-Aug-2009 Intent Peggy Lott CNP Echo CompleteBy: Peggy Lott CNP On: 12-Aug-2009 Intent Peggy Lott CNP Cartoid DopplerBy: Peggy Lott CNP On: 12-Aug-2009 Intent Peggy Lott CNP EKG (17586)By: Reanna Becker On: 12-Aug-2009 Intent Radiology - Cervical SpineBy: On: 04-Dec-2008 Intent Silvana Simmons MD Breast Diagnostic - RightBy: Iris On: 17-Nov-2008 Intent Silvana COLLINS Comments: abnormal mammo, 04-04 due for follow up EKG (80737)By: Silvana Simmons MD On: 17-Nov-2008 Intent MAMMOGRAM, SCREENING, BOTH BREASTS On: 27-Aug-2007 Intent (43093)By: Silvana Simmons MD EKG (16140)By: Silvana Simmons MD On: 27-Aug-2007 Intent Clinical Breast Examination On: 12-Jan-2007 Intent (G0101)By: Silvana Simmons MD MAMMOGRAM, SCREENING, BOTH BREASTS On: 12-Jan-2007 Intent (96725)By: Silvana Simmons MD Comments: after 02-15-07 Toradol Injection, 30 mg (J1885)By: On: 25-Oct-2006 Intent MIGUEL BERMAN CNP Comments: Given IM by Regino. Given inj to prevent ER visit. Pt has history of going to ER with same pain. Radiology - Lumbar SpineBy: CULLEN On: 25-Oct-2006 Intent MIGUEL ASH Planned Medications INJECTION, KETOROLAC TROMETHAMINE, PER 15 MG Ordered: 12-Jan-2018 Pending Ciesa SURGICAL SUPERVISOR, Thuy Ciesa SURGICAL SUPERVISOR, Thuy INJECTION, KETOROLAC TROMETHAMINE, PER 15 MG Ordered: 19-Feb-2018 Pending Ciesa SURGICAL SUPERVISOR, Thuy Ciesa SURGICAL SUPERVISOR, Thuy INJECTION, KETOROLAC TROMETHAMINE, PER 15 MG Ordered: 27-Feb-2018 Pending Ciesa SURGICAL SUPERVISOR, Thuy Ciesa SURGICAL SUPERVISOR, Thuy INJECTION, PROLIA Ordered: 16-Oct-2015 Pending Silvana Simmons MD Phenergan 50 MG/ML Injection Solution Ordered: 15-Jan-2013 Pending Ciesa SURGICAL SUPERVISOR, Thuy Ciesa SURGICAL SUPERVISOR, Thuy Instructions Name Dates Details Nonsmoker : [...] patient does not have 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 Note for [...] [facility] End: 21-Aug-2006 15:45 Payers [place]/Medicare Lilliana Felix; stanley guarantor
--- OUTSIDE RECORDS SUMMARY | 2019-02-15 03:17 | XMS RPT_ITS | Continuity of Care Document ---
:1950 Author Organization [facility] Address [address] [place] [address] Phone Care Team Providers Name Role Phone [...] all vaccines. will get eye exam in [place] pt has appt. Status: Active Encounter for [...] Status: Active Headache (R51, 784.0) Comments: rt religion, but has got these in past Status: [...] Refills: 3 Ordered:06-Jun-2018 Oren ASH, Peggy Kirkland [facility], Peggy Saldana Start : 06-Jun-2018 Active Ibuprofen 400 MG Oral Tablet 1 (one) Tablet Tablet bid prn for 0 days Quantity: 60 {Tablet} Refills: 0 Ordered:15-Oct-2018 Norma Whittington Start : 10-Sep-2018 Active Lisinopril 2.5 MG Oral Tablet 1 (one) Tablet daily for 0 days Quantity: 30 {Tablet} Refills: 6 Ordered:13-Sep-2018 Oren ASH, Peggy Kirkland [facility], Peggy Saldana Start : 13-Sep-2018 Active Tylenol 325 MG Oral Capsule 1 (one) Capsule Capsule q8hrs prn for 0 days Quantity: 30 {Capsule} Refills: 0 Ordered:10-Sep-2018 Oren ASH, Peggy Kirkland [employer], Peggy Saldana Start : 10-Sep-2018 Active ACTONEL, [...] Refills: 3 Ordered:06-Jun-2018 Oren ASH, Peggy Kirkland LIFE SCIENCE RESEARCH ASSISTANT, Thuy Start : 05-Mar-2018 End : 06-Jun-2018 [...] Refills: 0 Ordered:06-Jun-2018 Oren ASH Peggy Kirkland [employer] SCI[employer] RESEARCH ASSISTANT, Peggy Saldana Start : 06-Jun-2018 End : [...] 2 Views Result: Comments: See Note; NOTES: [facility] Imaging Services [address] [place] [address] Shoulder min 2 Views MR#: [id number] Acct: [id number] Name: JOSE RAFAEL FELIX Rep #: [id number] : 1950 F 67 From: Christian Simeon MD PCP: Peggy Lott NP Status: REG CLI Study: Shoulder min 2 Views Date of Exam: 09/10/18 Exam# [id number] Ordering Dr: Peggy Lott 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 STUDY: X-RAY - RIGHT SHOULDER REASON FOR [...] Service support , CC: Peggy Lott NP Area Field Person: Signed 26-Jul-2018 12 Lead Electrocardiogram Result: Comments: See Note; NOTES: [facility] Cardiovascular Services [address] [place] [address] 12 Lead EKG 07/24/18 1737 MR#: [id number] Acct: [id number] Name: JOSE RAFAEL FELIX Rep #: [id number] : 1950 67 From: Calixto Ludwig MD [...] ssion Confirmed by OZIEL COLLINS, CALIXTO ([id number]), newspaper or periodical editor BEENA JIN (56) on 07/26/2018 1:39:09 PM Referred By: Ramiro Barney Confirmed By:CALIXTO LUDWIG MD 07/26/18 1339 Date Calixto Ludwig MD CC: Peggy Lott NP; Ramiro Barney MD Signed 25-Jul-2018 Emergency Department Summary Result: Comments: See Note; NOTES: [facility] Medical Records Department [address] [place] [address] Emergency Department Summary 07/24/18 1852 MR#: [id number] Acct: [id number] Name: JOSE RAFAEL FELIX Rep #: [id number] : 1950 67 From: Ramiro Barney MD [...] 1. Dehydration. This note was generated with USMD dictation software. It may contain incorrect words, [...] your Primary Care Provider. Call [facility] ([phone]) or report to the closest Emergency Room. Call 911 if necessary. 07/25/18 0143 <Electronically signed by Ramiro mejia MD> Date Ramiro Barney MD Cosigner Signature (If Indicated): Date CC: Peggy Lott NP 18-Apr-2018 PT D/C Summary (1) Result: Comments: See Note; NOTES: [facility] Physical Therapy Health[address] [place] [address] Fax REHABILITATION SERVICES [facility] SUMMARY MR#: [id number] Acct: [id number] Name: JOSE RAFAEL FELIX Rep #: [id number] : 1950 67 From: Danny Callahan DPT, [...] strength program to walt mckeon at local [facility] Goal Progress: Goal Met Goal 4:: Work without increased pain Goal Progress: Goal Met - Plan Plan: D/C - D/C Information Discharge Comments: Ready to be done 100% better. Will f/u with doctor in May. If there are questions or concerns regarding this patient's physical therapy, please feel free to call me at [phone]. Thank you for the referral of this patient. Sincerely, Les Callahan DPT, OC <Electronically signed by Danny Callahan DPT, ABELARDO, CSCS> 04/18/18 0733 CC: Peggy Lott NP EBG Signed 24-Feb-2018 Inital Evaluation (1) - PT Result: Comments: See Note; NOTES: [facility] Physical Therapy [facility] [address] [place], [place] [address] Fax REHABILITATION SERVICES INITIAL EVALUATION MR#: [id number] Acct: [id number] Name: JOSE RAFAEL FELIX Rep #: [id number] : 1950 67 From: Danny Callahan DPT, ABELARDO, CSCS Referring Dr.: Peggy Lott NP Status: REG RCR Insurance: [facility] MEDICARE PPO SELF PAY INSURANCE Patient's Visit [...] appropriate strength program to cotninue at local [facility] Goal Time Frame: 2-4 Weeks Goal 4:: [...] be FAXED BACK to us a t [phone] for Medicare purposes. Please let me know [...] 5 Views Result: Comments: See Note; NOTES: [facility] Imaging Services [address] [place] [address] Cerv Spine 4 or 5 Views MR#: [id number] Acct: [id number] Name: JOSE RAFAEL FELIX Rep #: [id number] : 1950 F 67 From: Hayden Fernandes MD PCP: ePggy Lott NP Status: REG CLI Study: Cerv Spine 4 or 5 Views Date of Exam: 02/19/18 Exam# [id number] Ordering Dr: Peggy Lott STUDY: X-RAY - [...] Service support , CC: Peggy Lott NP Area Field Person: Signed 24-Jan-2018 Parathyroid Scan Result: Comments: See Note; NOTES: [facility] Imaging Services [address] [place] [address] Parathyroid Scan MR#: [id number] Acct: [id number] Name: JOSE RAFAEL FELIX Rep #: [id number] : 1950 F 67 From: Vern Hendricks DO PCP: Peggy Lott NP Status: REG CLI Study: Parathyroid Scan Date of Exam: 01/24/18 Exam# [id number] Ordering Dr: Peggy Lott CLINICAL: 67-year-old female [...] Service support , CC: Peggy Lott NP Area Field Person: Signed 25-Dec-2017 Emergency Department Summary Result: Comments: See Note; NOTES: [facility] Medical Records Department [facility] [place] [address] Emergency Department Summary 12/25/17 0838 MR#: [id number] Acct: [id number] Name: JOSE RAFAEL FELIX Rep #: [id number] : 1950 67 From: Ty Mckeon MD PCP: Peggy Lott NP Status: REG ER - ER Visit Summary Date of Service: 12/25/17 Chief Complaint: [] History of Present Illne ss: The patient is a 67 F [] Physical Examination: [] Test Results: [] Emergency Department Course and Treatment: [] Treatment Plan: [] Disposition: [] Impression: [] This note was generated Starline Promotionsation software. It may contain incorrect words, spelling, [...] your Primary Care Provider. Call [facility] ([phone]) or report to the closest [facility] Room. Call 911 if necessary. 12/25/17 0839 <Electronically signed by Ty Mckeon MD> Date Ty Mckeon MD Cosigner Signature (If I ndicated): Date CC: Peggy Lott NP 25-Dec-2017 Emergency Department Summary Result: Comments: See Note; NOTES: [facility] Medical Records Department [address] [place] [address] Emergency Department Summary 12/25/17 0627 MR#: [id number] Acct: [id number] Name: JOSE RAFAEL FELIX Rep #: [id number] : 1950 67 From: Sue Friedman PCP: [...] pain left-sided] This note was generated with USMD dictation software. It may contain incorrect words, [...] problems, contact your Primary Care Provider. Call [facility] ([phone]) or report to the closest Emergency Room. Call 911 if necessary. 12/25/17 0750 <Electronically signed by Sue Friedman > Date Sue Friedman Cosigner Signature ( If Indicated): Date CC: Peggy Lott NP 25-Dec-2017 Emergency Department Summary Result: Comments: See Note; NOTES: [facility] Medical Records Department [address] [place] [address] Emergency Department Summary 12/25/17 0627 MR#: [id number] Acct: [id number] Name: JOSE RAFAEL FELIX Rep #: [id number] : 1950 67 From: Sue Friedman PCP: [...] pain left-sided] This note was generated with Danal [employer] Billto[employer]ation software. It may contain incorrect words, spelling [...] your Primary Care Provider. Call [facility] ([phone]) or report to the closest Emergency Room. Call 911 if necessary. 12/25/17 0750 <Electronically signed by Sue Friedman > Date Sue Friedman Cosigner Signature (If Indicated): Date CC: Peggy Lott NP 25-Dec-2017 Abdomen/Pelvis without Cont Result: Comments: See Note; NOTES: [facility] Imaging Services [address] [place] [address] Abdomen/Pelvis without Cont MR#: [id number] Acct: [id number] Name: JOSE RAFAEL FELIX Rep # : [id number] : 1950 F 67 From: Tylor Amor MD PCP: Peggy Lott NP Status: REG ER Study: Abdomen/Pelvis without Cont Date of Exam: 12/25/17 Exam# [id number] Ordering Dr: Sue Friedman DY: CT ABDOMEN [...] Tylor Amor MD at 8:10 EST Tel [phone], Service support , CC: Peggy Lott BREAKER OILER; Sue Friedman Area Field Person: Signed 27-Sep-2017 Dexa Bone Density Study (HP) Result: Comments: See Note; NOTES: [facility] Imaging Services [address] [place] [address] Dexa Bone Density Study (HP) MR#: [id number] Acct: [id number] Name: JOSE RAFAEL FELIX Rep #: [id number] : 1950 F 67 From: Tylor Amor MD PCP: Peggy Lott Status: REG CLI Study: Dexa Bone Density Study (HP) Date of Exam: 09/27/17 Exam# [id number] Ordering Dr: Peggy Lott STUD Y: DUAL [...] Tylor Amor MD at 12:36 EDT Tel [phone], Service support , CC: Peggy Lott Area Field Person: Signed 27-Sep-2017 SCREENING MAMM (CAD), BILAT Result: Comments: See Note; NOTES: [facility] Imaging Services [address] [place] [address] SCREENING MAMM (CAD), BILAT MR#: [id number] Acct: [id number] Name: JOSE RAFAEL FELIX Rep # : [id number] : 1950 F 67 From: Tylor Amor MD PCP: Peggy Lott Status: REG CLI Study: SCREENING MAMM (CAD), BILAT Date of Exam: 09/27/17 Exam# [id number] Ordering Dr: Peggy Lott MAMMOG EVELYN - [...] biopsy of a clinically suspicious abn ormality. [id number] Electronically Signed: Tylor Amor MD at 13:08 EDT Tel [phone], Service support , CC: Peggy Lott Area Field Person: Signed 03-Aug-2016 Bilat Scrn Digital AND CAD Result: Comments: See Note; NOTES: [facility] Imaging Services [address] [place] [address] Verdana 4d Bilat Scrn Digital AND CAD MR#: [id number] Acct: [id number] Name: SHAUNA FELIX Rep #: [id number] : 1950 F 65 From: Tylor Amor MD PCP: Iris COLLINS,Silvana Status: REG CLI Study: Bilat Scrn Digital AND CAD Date of Exam: 08/03/16 Exam# [id number] Ordering Dr: Peggy Lott MAMMOGRAPHY - BILATERAL [...] delay biopsy of a clinically suspicious abnormality. [id number] Electronically Signed: Tylor Amor MD 201 05/05/07 at 15:56 EDT Tel [phone], Service support [phone], CC: Peggy Lott; Silvana Simmons MD Area Field Person: Signed 26-Jul-2015 Emergency Department Summary Result: Comments: See Note; NOTES: [facility] Medical Records Department [address] [place] [address] Emergency Department Summary MR#: [id number] Acct: [id number] Name: JOSE RAFAEL MILES Rep #: [id number] : 1950 64 From: Ty Mckeon MD [...] C: Erick Eduardo MD T: NTS JOB: [id number] 07/26/152320 <Electronically signed by Ty Mckeon MD> Date Ty Mckeon MD Co signer Signature (If Indicated): Date CC: Silvana Simmons MD; Calixto Eduardo MD Date Dictated: 07/26/152258 Date Transcribed: 07/26/152258 Area Field Person: Signed 26-Jul-2015 Discharge Instruction Result: Comments: See Note; NOTES: [facility] Medical Records Department [address] [place] [address] Discharge Instruction 07/26/152299 MR#: [id number] Acct: [id number] Name: JOSE RAFAEL FELIX Rep #: [id number] : 1950 64 From: Ty Mckeon MD [...] problems, contact your doctor. Call [facility] ([phone]) or report to the closest Emergency Room. Call 911 if necessary. 07/26/152300 <Electronically signed by Ty Hyde> Date Ty Mckeon MD Cosigner Signature (If Indicated): Date CC: Silvana Simmons MD 30-Jun-2015 Bilat Scrn Digital AND CAD Result: Comments: See Note; NOTES: [facility] Imaging Services [address] [place] [address] Breast Imaging Report MR#: [id number] Acct: [id number] Name: JOSE RAFAEL FELIX Rep #: [id number] : 1950 F 64 From: Tylor Amor MD PCP: Silvana Simmons MD Status: REG CLI Study: Parisa Herndon Digital AND CAD Date of Exam: 06/30/15 Exam# [id number] Ordering Dr: Obi Simmons MD MAMMOGRAPHY - [...] Tylor anguiano MD at 11:01 EDT Tel [phone], Service support [phone], CC: Silvana Simmons MD Area Field Person: Signed 30-Jun-2015 Dexa Bone Density Study (HP) Result: Comments: See Note; NOTES: [facility] Imaging Services [address] [place] [address] Bone Density Report MR#: [id number] Acct: [id number] Name: JOSE RAFAEL FELIX Rep #: [id number] : 1950 F 64 From: Tylor Amor MD PCP: Silvana Simmons MD Status: [facility] CLI Study: Dexa Bone Density Study (HP) Date of Exam: 06/30/15 Exam# [id number] Ordering Dr: Obi Simmons MD STUDY: DUAL [...] Tylor Amor MD at 15:00 EDT Tel [phone], Service support [phone], CC: Silvana Simmons MD Area Field Person: Signed 14-Nov-2014 Echocardiogram Complete Result: Comments: See Note; NOTES: [facility] Cardiovascular Services [address] [place] [address] Echo Complete 11/14/14 1048 MR#: [id number] Acct: [id number] Name: ANTWAN FELIX Rep #: [id number] : 1950 64 From: Capo Powell MD Attending Dr: Silvana Simmons MD Status: REG CLI Ordering Dr: Silvana Simmons MD Date: 11/14/14 [facility] Sex: F C Admitted: Aisha raeglenda This [...] Date Dictated: 11/14/14 1048 Date Transcribed: 11/14/141405 Area Field Person: Signed 04-Nov-2014 12 Lead Electrocardiogram Result: Comments: See Note; NOTES: [facility] Cardiovascular Services [address] [place] [address] 12 Lead EKG 11/02/14 1128 MR#: [id number] Acct: [id number] Name: VANITA FELIX Rep #: [id number] : 1950 64 From: Capo Powell MD [...] ECG Confirmed by CAPO POWELL MD ([id number]), newspaper or periodical editor BEENA JIN (56) on 11/04/2014 10:22:44 AM Referred By: JANET Confirmed B y:CAPO POWELL MD 11/04/14 1022 Date Capo Powell MD CC: Silvana Simmons MD Date Dictated: 11/02/14 1128 Date Transcribed: 11/02/14 112 Area Field Person: Signed Family History Unknown Family Member Name [...] Height 0 in Head Circumference 0.00 cm 71-Wqb-011581:40 Pulse 64 /min Comments: Pattern: Regular Respiration Rate 14 /min Comments: Pattern: Undefined BP Systolic 114 mm[Hg] Comments: Patient Position: Sitting; Cuff Location: Undefined; Cuff Size: Undefined BP Diastolic 76 mm[Hg] Comments: Patient Position: Sitting; Cuff Location: Undefined; Cuff Size: Undefined Weight 141.125 lb Height 0 in Head Circumference 0.00 cm Results Date Description Value Details 90-Wkk-823687:39 CBC W/Diff, Automated Comments: [facility] [address] [place], [address] Absolute Lymph 1.01 {X10_3/ul} (Normal) Range: 0.83-4.51 [...] 4.2-5.4 WBC 6.0 K/mm3 (Normal) Range: 4.4-11.0 63-Xxf-079067:39 Iron Comments: [facility] [address], [address] IRON 79 ug/dL (Normal) Range: 50-170 70-Ghb-954014:35 Basic Metabolic Profile (BMP) Comments: [facility] [address], [address] GAP 8 (Normal) Range: 5-15 CO2 24.0 [...] Comments: Please note revised GLUCOSE reference range wstrkbhav31/02/2018. 04-Cpz-724043:35 CBC W/Diff, Automated Comments: [facility] [address] [place], [address] Absolute Lymph 0.62 {X10_3/ul} (Abnormal) Range: 0.83-4.51 [...] 4.2-5.4 WBC 5.9 K/mm3 (Normal) Range: 4.4-11.0 08-Qvs-327026:53 URINE EPIFANIO CULTURE-IDENTIFICATN Comments: PATIENT NOT FASTINGPERFORMED BY: [facility] Ckqyzx8799 [facility] [id number] Information: SRC:FRANK (06209) Antimicrobial MIHEAD (Normal) Comments: S = Susceptible; [...] mL (Abnormal) Urine Final report Culture,Comprehensive (Abnormal) 21-Adh-664344:56 Urinalysis, Office (82792) UA - LEUKOCYTE ESTERASE Moderate (Normal) UA [...] Microscopic Examination Comments: PATIENT WAS FASTINGPERFORMED BY: [facility] [id number] Bacteria Many (Abnormal) Mucus Threads Present (Normal) Cast Type Hyaline casts (Normal) Casts Present {/lpf} (Abnormal) Epithelial Cells (non renal) 0-10 {/hpf} (Normal) Range: 0 - 10 RBC 0-2 {/hpf} (Normal) Range: 0 - 2 WBC >30 {/hpf} (Abnormal) Range: 0 - 5 :25 MICROALBUMIN: CREATININE RATIO Comments: PATIENT WAS FASTINGPERFORMED BY: [facility] [id number] (31970) AND (59195) Alb/Creat Ratio 27.0 {mg/g_creat} (Normal) Range: 0.0-30.0 Albumin, Urine 33.5 ug/mL (Normal) Creatinine, Urine 124.3 mg/dL (Normal) :25 URINALYSIS (75503) Comments: PATIENT WAS FASTINGPERFORMED BY: [facility] [id number] Microscopic Examination See below: (Normal) Comments: Microscopic was indicated and was performed. Nitrite, Urine Positive (Abnormal) Urobilinogen,Semi-Qn 0.2 mg/dL (Normal) Range: 0.2-1.0 Bilirubin Negative (Normal) Occult Blood 1+ (Abnormal) Ketones Negative (Normal) Glucose Negative (Normal) Protein Negative (Normal) WBC Esterase 2+ (Abnormal) Appearance Clear (Normal) Urine-Color Yellow (Normal) pH 5.0 (Normal) Range: 5.0-7.5 Specific [place] 1.020 (Normal) Range: 1.005-1.030 :25 TSH (37930) Comments: PATIENT WAS FASTINGPERFORMED BY: [facility]CoVirtua VoorheesYktcbc8358 [facility] [id number] TSH 1.210 {uIU/mL} (Normal) Range: 0.450-4.500 8-Ewm-650033:25 Metabolic Panel, Comprehensive Comments: PATIENT WAS FASTINGPERFORMED BY: GLAMSQUADVirtua VoorheesOccdye5992 [facility] [id number] (68366) ALT (SGPT) 14 [iU]/L (Normal) Range: 0-32 [...] 8-27 Glucose 82 mg/dL (Normal) Range: 65-99 0-Dpm-927353:25 CBC & PLATELETS (AUTO) (49768) Comments: PATIENT WAS FASTINGPERFORMED BY: LabNibuVirtua VoorheesRimlai2759 [facility] [id number] Platelets 323 {x10E3/uL} (Normal) Range: 150-379 RDW 14.0 % (Normal) Range: 12.3-15.4 MCHC 34.0 g/dL (Normal) Range: 31.5-35.7 MCH 29.9 pg (Normal) Range: 26.6-33.0 MCV 88 fL (Normal) Range: 79-97 Hematocrit 40.0 % (Normal) Range: 34.0-46.6 Hemoglobin 13.6 g/dL (Normal) Range: 11.1-15.9 RBC 4.55 {x10E6/uL} (Normal) Range: 3.77-5.28 WBC 4.7 {x10E3/uL} (Normal) Range: 3.4-10.8 2-Dla-333395:25 LIPID PANEL (00720) Comments: PATIENT WAS FASTINGPERFORMED BY: [facility] [id number] LDL/HDL Ratio 1.1 {ratio} (Normal) Range: 0.0-3.2 Comments: LDL/HDL Ratio Men Women 1/2 Avg.Risk 1.0 1.5 Av g.Risk 3.6 3.2 2X Avg.Risk 6.2 5.0 3X Avg.Risk 8.0 6.1 LDL Cholesterol Calc 81 mg/dL (Normal) Range: 0-99 VLDL Cholesterol Marysol 16 mg/dL (Normal) Range: 5-40 HDL Cholesterol 72 mg/dL (Normal) Triglycerides 78 mg/dL (Normal) Range: 0-149 Cholesterol, Total 169 mg/dL (Normal) Range: 100-199 5-Lvm-307059:13 Urinalysis, Office (14717) UA - LEUKOCYTE ESTERASE Negative (Normal) UA - NITRITE Negative (Normal) URINE UROBILINGN RONALD TIMED Normal mg/dL (Normal) UA - PROTEIN Negative mg/dL (Normal) UA - PH 6 (Abnormal) UA - BLOOD Hemolyzed Small (Normal) UA - SPECIFIC GRAVITY 1.025 (Normal) UA - KETONES Negative mg/dL (Normal) UA - BILIRUBIN Negative (Normal) UA - GLUCOSE Negative (Normal) 22-Gij-98032:51 CBC & PLATELETS (AUTO) (65253) Comments: PATIENT NOT FASTINGPERFORMED BY: [facility] [id number] Platelets 291 {x10E3/uL} (Normal) Range: 150-379 RDW 13.8 % (Normal) Range: 12.3-15.4 MCHC 33.2 g/dL (Normal) Range: 31.5-35.7 MCH 29.7 pg (Normal) Range: 26.6-33.0 MCV 90 fL (Normal) Range: 79-97 Hematocrit 40.7 % (Normal) Range: 34.0-46.6 Hemoglobin 13.5 g/dL (Normal) Range: 11.1-15.9 RBC 4.54 {x10E6/uL} (Normal) Range: 3.77-5.28 WBC 5.7 {x10E3/uL} (Normal) Range: 3.4-10.8 :51 PARATHORMONE (62162) Comments: PATIENT NOT FASTINGPERFORMED BY: [facility] Dtknnp6059 [facility] [id number] PTH, Intact 66 pg/mL (Abnormal) Range: 15-65 :00 Urinalysis, Office (94873) UA - LEUKOCYTE ESTERASE Trace (Normal) UA [...] CLEAN [facility] [address] [facility] [place], [place], [id number] MUCUS, URINE 0 SEEN {/hpf} (Normal) BACTERIA [...] Straw (Normal) :58 CBC W/Diff, Automated Comments: [facility] [address] [place], [address] Absolute Lymph 1.16 {X10_3/ul} (Normal) Range: 0.83-4.51 [...] 4.2-5.4 WBC 3.2 K/mm3 (Abnormal) Range: 4.4-11.0 02-Qxs-27643:58 Comprehensive Metabolic Profil Comments: [facility] [address] [place], [place], [address] GAP 8 (Normal) Range: 5-15 CO2 28.0 [...] 7-18 GLU 96 mg/dL (Normal) Range: 70-110 14-Uny-65467:58 Lipase Comments: [facility] [address] [place], [place], [address] LIPASE 211 U/L (Normal) Range: 73-393 7-Wvd-808677:30 MICROALBUMIN: CREATININE RATIO Comments: PATIENT NOT FASTINGPERFORMED BY: [facility]23 Ferguson Streetblin [place] [id number] (95134) AND (40920) Microalb/Creat Ratio 3.2 {mg/g_creat} (Normal) Range: 0.0-30.0 Microalbumin, Urine 4.7 ug/mL (Normal) Creatinine, Urine 145.6 mg/dL (Normal) 1-Uvw-852048:30 URINALYSIS (99097) Comments: PATIENT NOT FASTINGPERFORMED BY: [facility]6370 [facility] [id number] Microscopic Examination MICNIP (Normal) Comments: Microscopic not indicated and not performed. Nitrite, Urine Negative (Normal) Urobilinogen,Semi-Qn 0.2 mg/dL (Normal) Range: 0.2-1.0 Bilirubin Negative (Normal) Occult Blood Negative (Normal) Ketones Trace (Abnormal) Glucose Negative (Normal) Protein Negative (Normal) WBC Esterase Negative (Normal) Appearance Clear (Normal) Urine-Color Yellow (Normal) pH 5.5 (Normal) Range: 5.0-7.5 Specific [place] 1.022 (Normal) Range: 1.005-1.030 8-Hev-885563:30 TSH (THYROID STIMULATING Comments: PATIENT NOT FASTINGPERFORMED BY: [facility]6370 [facility] [id number] HORMONE) (80427) TSH 0.801 {uIU/mL} (Normal) Range: 0.450-4.500 2-Bbg-633219:30 CBC, PLATELETS & AUT DIFF Comments: PATIENT NOT FASTINGPERFORMED BY: [place] 1668670 [facility] [id number] Information: A08840, 037572 (35770) Immature Grans (Abs) 0.0 {x10E3/uL} (Normal) Range: [...] 3.77-5.28 WBC 5.6 {x10E3/uL} (Normal) Range: 3.4-10.8 0-Dun-514522:30 METABOLIC PANEL, COMPREHENSIVE Comments: PATIENT NOT FASTINGPERFORMED BY: [facility] Gtyexu6607 [facility] [id number] (41029) ALT (SGPT) 14 [iU]/L (Normal) Range: 0-32 [...] Glucose, Serum 96 mg/dL (Normal) Range: 65-99 95-Lgc-365232:37 Lipid Panel (69874) Comments: around April 2017; PATIENT WAS FASTINGPERFORMED BY: ROBERT [facility] [facility] [id number] LDL/HDL Ratio 1.1 {ratio_units} (Normal) Range: 0.0-3.2 Comments: LDL/HDL Ratio Men Women 1/2 Avg.Risk 1.0 1.5 Av g.Risk 3.6 3.2 2X Avg.Risk 6.2 5.0 3X Avg.Risk 8.0 6.1 LDL Cholesterol Calc 77 mg/dL (Normal) Range: 0-99 VLDL Cholesterol Marysol 23 mg/dL (Normal) Range: 5-40 HDL Cholesterol 72 mg/dL (Normal) Triglycerides 116 mg/dL (Normal) Range: 0-149 Cholesterol, Total 172 mg/dL (Normal) Range: 100-199 06-Ctd-667856:37 POTASSIUM SERUM (31954) Comments: Order Date: 02/13/17Order Info: 2823-3 - [facility] Date: 02/13/17Order Info: 2823-3 - [facility] [address] [place], [place], [id number] K 4.1 mmol/L (Normal) Range: 3.5-5.1 75-Kng-065935:20 Microscopic Examination Comments: PATIENT WAS FASTINGPERFORMED BY: [facility] [id number] Bacteria None seen (Normal) Mucus Threads Present (Normal) Epithelial Cells (non renal) 0-10 {/hpf} (Normal) Range: 0 - 10 RBC None seen {/hpf} (Normal) Range: 0 - 2 WBC 0-5 {/hpf} (Normal) Range: 0 - 5 17-Ukh-710488:20 METABOLIC PANEL, COMPREHENSIVE Comments: PATIENT WAS FASTINGPERFORMED BY: Apropose70 [facility] [id number] ([id number]) ALT (SGPT) 17 [iU]/L (Normal) Range: 0-32 [...] Glucose, Serum 81 mg/dL (Normal) Range: 65-99 65-Gbv-267278:20 URINALYSIS, W/ MICRO (98358) Comments: PATIENT WAS FASTINGPERFORMED BY: Apropose70 [facility] [id number] Microscopic Examination See below: (Normal) Comments: Microscopic was indicated and was performed. Microscopic Examination MICRON (Normal) Comments: Microscopic follows if indicated. Nitrite, Urine Negative (Normal) Urobilinogen,Semi-Qn 0.2 mg/dL (Normal) Range: 0.2-1.0 Bilirubin Negative (Normal) Occult Blood Negative (Normal) Ketones Negative (Normal) Glucose Negative (Normal) Protein Negative (Normal) WBC Esterase Negative (Normal) Appearance Clear (Normal) Urine-Color Yellow (Normal) pH 6.5 (Normal) Range: 5.0-7.5 Specific [place] 1.013 (Normal) Range: 1.005-1.030 73-Awc-203936:20 CBC with auto diff (76517) Comments: PATIENT WAS FASTINGPERFORMED BY: [facility] Eaeanc5420 [address] [facility] [id number] Immature Grans (Abs) 0.0 {x10E3/uL} (Normal) Range: [...] 6.1 {x10E3/uL} (Normal) Range: 3.4-10.8 :20 TSH (00601) Comments: PATIENT WAS FASTINGPERFORMED BY: [facility]entoHenry [facility]6370 [facility] [id number] TSH 0.689 {uIU/mL} (Normal) Range: 0.450-4.500 :20 MICROALBUMIN: CREATININE RATIO Comments: PATIENT WAS FASTINGPERFORMED BY: GLAMSQUADVirtua VoorheesYzzbnh1341 [facility] [id number] (03883) AND (32187) Microalb/Creat Ratio <6.5 {mg/g_creat} (Normal) Range: 0.0-30.0 Microalbumin, Urine <3.0 ug/mL (Normal) Creatinine, Urine 46.2 mg/dL (Normal) :40 HEPATIC FUNCTION PANEL Comments: PATIENT WAS FASTINGPERFORMED BY: GLAMSQUADVirtua VoorheesKwbwzu2675 [facility] [id number] (67180) ALT (SGPT) 38 [iU]/L (Abnormal) Range: 0-32 AST (SGOT) 35 [iU]/L (Normal) Range: 0-40 Alkaline Phosphatase, S 65 [iU]/L (Normal) Range: 39-117 Bilirubin, Direct 0.14 mg/dL (Normal) Range: 0.00-0.40 Bilirubin, Total 0.4 mg/dL (Normal) Range: 0.0-1.2 Albumin, Serum 4.3 g/dL (Normal) Range: 3.6-4.8 Protein, Total, Serum 6.8 g/dL (Normal) Range: 6.0-8.5 :40 LIPID PANEL (68980) Comments: PATIENT WAS FASTINGPERFORMED BY: MagentoHenry [facility]6370 [facility] [id number] LDL/HDL Ratio 1.2 {ratio_units} (Normal) Range: 0.0-3.2 Comments: LDL/HDL Ratio Men Women 1/2 Avg.Risk 1.0 1.5 Av g.Risk 3.6 3.2 2X Avg.Risk 6.2 5.0 3X Avg.Risk 8.0 6.1 LDL Cholesterol Calc 84 mg/dL (Normal) Range: 0-99 VLDL Cholesterol Marysol 20 mg/dL (Normal) Range: 5-40 HDL Cholesterol 73 mg/dL (Normal) Triglycerides 98 mg/dL (Normal) Range: 0-149 Cholesterol, Total 177 mg/dL (Normal) Range: 100-199 6-Iqb-852331:45 Culture, Urine Comments: [facility] [address] [place], [place], [address] CUUR See Note (Normal) Comments: Urine CultureRESULTS [...] >=320 R(NF) indicates non- formulary drug at [facility]. Approval by Infectious Disease Specialist required before non-formulary drugs may be ordered and/or dispensed. 00-Vdr-372417:06 Urinalysis, Office (03415) UA - LEUKOCYTE ESTERASE Trace (Normal) UA - NITRITE Positive (Normal) URINE UROBILINGN RONALD TIMED Normal mg/dL (Normal) UA - PROTEIN Negative mg/dL (Normal) UA - PH 6 (Abnormal) UA - BLOOD Hemolyzed Small (Normal) UA - SPECIFIC GRAVITY 1.025 (Normal) UA - KETONES Negative mg/dL (Normal) UA - BILIRUBIN Negative (Normal) UA - GLUCOSE Negative (Normal) 98-Shz-554540:13 CBC, Platelets & Auto Comments: PATIENT WAS FASTINGPERFORMED BY: LabCoJohn [facility]ille 7214370 [facility] [id number] Information: [id number] Diff (51808) Immature Grans (Abs) 0.0 {x10E3/uL} (Normal) Range: [...] 3.77-5.28 WBC 7.2 {x10E3/uL} (Normal) Range: 3.4-10.8 73-Ubl-371677:13 TSH (81747) Comments: PATIENT WAS FASTINGPERFORMED BY: LabCoVirtua VoorheesJndzym8596 [facility] [id number] TSH 0.907 {uIU/mL} (Normal) Range: 0.450-4.500 42-Hqf-015235:13 Lipid Panel (32435) Comments: PATIENT WAS FASTINGPERFORMED BY: MagentoHenry [facility] Hospital6370 [facility] [id number] LDL/HDL Ratio 2.2 {ratio_units} (Normal) Range: 0.0-3.2 [...] Cholesterol, Total 253 mg/dL (Abnormal) Range: 100-199 32-Htg-369913:13 Metabolic Panel, Comprehensive Comments: PATIENT WAS FASTINGPERFORMED BY: GLAMSQUADVirtua VoorheesOdqwah9504 [facility] [id number] (69237) ALT (SGPT) 25 [iU]/L (Normal) Range: 0-32 [...] Glucose, Serum 92 mg/dL (Normal) Range: 65-99 63-Khx-164388:58 URINE EPIFANIO CULTURE-RONALD COL Comments: Forward to Dr Eduardo, Urology, [place], [place]; PATIENT NOT FASTINGPERFORMED BY: Apropose70 [facility] [id number] Information: SRC:UR [id number] COUNT (47681) Result 1 MUG (Normal) Comments: Mixed urogenital flora5,000 Colonies/mL Urine Culture,Comprehensive Final report (Normal) 25-Ktv-626972:55 Urinalysis, Office (56889) UA - GLUCOSE Negative (Normal) UA - BILIRUBIN Negative (Normal) UA - KETONES Negative mg/dL (Normal) UA - SPECIFIC GRAVITY 1.025 (Normal) UA - BLOOD Hemolyzed Trace (Normal) UA - PH 6 (Abnormal) UA - PROTEIN Negative mg/dL (Normal) URINE UROBILINGN RONALD TIMED Normal mg/dL (Normal) UA - NITRITE Negative (Normal) UA - LEUKOCYTE ESTERASE Negative (Normal) 7-Vjp-623987:01 Vitamin D Hydroxy (46681) Comments: PATIENT NOT FASTINGPERFORMED BY: [employer] LabCoAnyMeetingDpljlh2313 [address] [facility] [id number] Vitamin D, 25-Hydroxy 33.2 ng/mL (Normal) Range: 30.0-100.0 Comments: Vitamin D deficiency has been defined by the [place] of[place]icine and an Endocrine Society practice guideline as alevel of serum 25-OH vitamin D less than 20 ng/mL (1,2).The Endocrine Society went on to further define vitamin Dinsufficiency as a level between 21 and 29 ng/mL (2).1. IOM ([place] of Medicine). 2010. Dietary reference intakes for calcium and D. [place]: The National Academies Press.2. Mica MF, Dami LION, Sheri CHAVEZ, et al. Evaluation, treatment, and prevention of vitamin D deficiency: an Endocrine Society clinical practice guideline. JCEM. 2010; 96(7):4901-30. :01 SPEP (31896) Comments: PATIENT NOT FASTINGPERFORMED BY: [facility] Usepbm5460 Rolon RoadDublin [place] [id number] Information: [id number] Please note: SPRCS (Normal) Comments: Protein electrophoresis scan will follow via computer, mail, orcourier delivery. A/G Ratio 1.3 (Normal) Range: 0.7-2.0 Globulin, Total 3.2 g/dL (Normal) Range: 2.0-4.5 M-Faisal Not Observed g/dL (Normal) Gamma Globulin 1.1 g/dL (Normal) Range: 0.5-1.6 Beta Globulin 1.1 g/dL (Normal) Range: 0.6-1.3 Jzwhd-9-Wlyiwjsr 0.8 g/dL (Normal) Range: 0.4-1.2 Lpoqo-9-Ecutynsl 0.3 g/dL (Normal) Range: 0.1-0.4 Albumin 4.2 g/dL (Normal) Range: 3.2-5.6 Protein, Total, Serum 7.4 g/dL (Normal) Range: 6.0-8.5 :01 TSH (56847) Comments: PATIENT NOT FASTINGPERFORMED BY: [facility] Alyexo0756 [address]on RoadDublin [place] [id number] TSH 0.956 {uIU/mL} (Normal) Range: 0.450-4.500 :01 PARATHORMONE (86538) Comments: PATIENT NOT FASTINGPERFORMED BY: CB [facility] Ibswzf2071 [address]on RoadDublin [place] [id number] PTH, Intact 53 pg/mL (Normal) Range: 15-65 :01 SED RATE ERYTHROCYTE (84266) Comments: PATIENT NOT FASTINGPERFORMED BY: [facility] Rfgfoo7190 Rolon RoadDublin [place] [id number] Sedimentation Rate-Westergren 6 mm/h (Normal) Range: 0-40 0-Hlj-630010:01 ALKALINE PHOSPHATASE (68381) Comments: PATIENT NOT FASTINGPERFORMED BY: [facility]6370 [facility] [id number] Alkaline Phosphatase, S 75 [iU]/L (Normal) Range: 39-117 1-Xet-955562:01 C-REACTIVE PROTEIN (05987) Comments: PATIENT NOT FASTINGPERFORMED BY: LabCoVirtua VoorheesSwcjsa8883 [facility] [id number] C-Reactive Protein, Quant 1.5 mg/L (Normal) Range: 0.0-4.9 07-Nas-268950:10 Urinalysis, Complete Comments: Order Date: 07/26/15How was Urine Obtained? CLEAN CATCHTest performed at:[facility] [address] [place] [address] MUCUS, URINE 0 SEEN {/hpf} (Normal) [...] (Normal) CLARITY Clear (Normal) COLOR Yellow (Normal) 16-Tui-475329:26 Basic Metabolic Profile (BMP) Comments: Test performed at:[facility] [address] [place] [address] GAP 6 (Normal) Range: 5-15 CO2 [...] Comments: Please note revised CREATININE reference range evmiglqwh51/22/2015. BUN 24 mg/dL (Abnormal) Range: 7-18 GLU 91 mg/dL (Normal) Range: 70-110 05-Mra-035529:26 CBC W/Diff, Automated Comments: Test performed at:[facility] [address] [place] [address] Absolute Lymph 1.55 {X10_3/ul} (Normal) Range: 0.83-4.51 [...] Panel (7) Comments: PATIENT WAS FASTINGPERFORMED BY: GLAMSQUADVirtua VoorheesVksmtc5327 [facility] [id number] ALT (SGPT) 17 [iU]/L (Normal) Range: 0-32 AST (SGOT) 24 [iU]/L (Normal) Range: 0-40 Alkaline Phosphatase, S 63 [iU]/L (Normal) Range: 39-117 Bilirubin, Direct 0.16 mg/dL (Normal) Range: 0.00-0.40 Bilirubin, Total 0.7 mg/dL (Normal) Range: 0.0-1.2 Albumin, Serum 4.6 g/dL (Normal) Range: 3.6-4.8 Protein, Total, Serum 7.2 g/dL (Normal) Range: 6.0-8.5 86-Urq-798905:19 Lipid Panel With LDL/HDL Comments: PATIENT WAS FASTINGPERFORMED BY: GLAMSQUADVirtua VoorheesMlkfne6683 [facility] [id number] Information: [id number] Ratio LDL/HDL Ratio 2.6 {ratio_units} (Normal) Range: [...] Cholesterol, Total 257 mg/dL (Abnormal) Range: 100-199 60-Lkz-788412:14 Culture, Urine Comments: Test performed at:[facility] [address] [place], [place] [address] CUUR See Note (Normal) Comments: Urine CultureORGANISM [...] $ <=20 S(NF) indicates non-formulary drug at [facility]. Approval by Infectious Disease Specialist required before non- formulary drugs may be ordered and/or dispensed. 59-Olv-544807:14 Urinalysis, Routine (Dipstick) Comments: How was Urine Obtained? CLEAN CATCHTest performed at:[facility] [address]euqtet[address] [place], [place] [address] LEUK ESTERASE 100 /ul (Abnormal) OCCULT BLOOD-UR 10 /ul (Abnormal) NITRITE UR Positive (Abnormal) UROBILI Normal mg/dL (Normal) PROT DIPSTX Negative mg/dL (Normal) pH UR 7.0 (Normal) Range: 5.0 - 8.0 SP.GR. DIPSTX 1.010 (Normal) Range: 1.002-1.030 KETONE UR Negative mg/dL (Normal) BILIRUBIN URINE Negative mg/dL (Normal) GLUCOSE, UR Normal mg/dL (Normal) CLARITY Sl. Cloudy (Normal) COLOR Yellow (Normal) 39-Agb-351109:16 URINE EPIFANIO CULTURE (RONALD Comments: PATIENT NOT FASTINGPERFORMED BY: [facility] Kvwqla5831 [facility] [id number] Information: SRC:UR [id number] COL COUNT) ([id number]) Result 1 CNSNSS (Abnormal) Comments: Coagulase negative [...] S Urine Final report Culture,Comprehens (Abnormal) tito 0-Avs-879249:25 Culture, Urine Comments: Test performed at:[facility] [address] [place] [address] CUUR See Note (Normal) Comments: Order Date: [...] $ <=20 S(NF) indicates non-formulary drug at [facility]. Approval by Infectious Disease Specialist required before non-formulary drugs may be ordered and/or dispensed. 51-Ukw-17405:24 MICROALBUMIN: CREATININE RATIO Comments: PATIENT WAS FASTINGPERFORMED BY: [facility] Nytruj1632 [facility] [id number] (93799) AND (98939) Microalb/Creat Ratio 1.3 {mg/g_creat} (Normal) Range: 0.0-30.0 Microalbumin, Urine 1.5 ug/mL (Normal) Range: 0.0-17.0 Creatinine, Urine 118.7 mg/dL (Normal) Range: 15.0-278.0 :24 METABOLIC PANEL, COMPREHENSIVE Comments: PATIENT WAS FASTINGPERFORMED BY: GLAMSQUAD Occbfw4159 [facility] [id number] (30442) ALT (SGPT) 22 [iU]/L (Normal) Range: 0-32 [...] mg/dL (Normal) Range: 65-99 :24 LIPID PANEL (29601) Comments: PATIENT WAS FASTINGPERFORMED BY: [employer]6370 [facility] [id number] LDL/HDL Ratio 2.6 {ratio_units} (Normal) Range: 0.0-3.2 Comment: LDLCOM (Normal) Comments: Possible Familial Hypercholesterolemia. FH should be suspected whenfasting LDL cholesterol is above 189 mg/dL or non-HDL cholesterolis above 219 mg/dL. A family history of high cholesterol and heartdise ase in 1st degree relatives should be collected. J Clin Akqfxld6939;5:133-140 LDL Cholesterol Calc 206 mg/dL (Abnormal) Range: 0-99 VLDL Cholesterol Marysol 16 mg/dL (Normal) Range: 5-40 HDL Cholesterol 79 mg/dL (Normal) Comments: According to ATP-III Guidelines, HDL-C >59 mg/dL is considered anegative risk factor for CHD. Triglycerides 82 mg/dL (Normal) Range: 0-149 Cholesterol, Total 301 mg/dL (Abnormal) Range: 100-199 91-Aot-36447:24 CBC WITH MANUAL DIFF Comments: PATIENT WAS FASTINGPERFORMED BY: LabCoVirtua VoorheesGracal7743 [facility] [id number] Information: [id number] (74880) Immature Grans (Abs) 0.0 {x10E3/uL} (Normal) Range: [...] 3.77-5.28 WBC 4.8 {x10E3/uL} (Normal) Range: 3.4-10.8 4-Bqv-994740:31 BILAT SCRN DIGITAL & CAD Radiology Report [...] Amor M.D.January 31, 2013 at 1:16:07 PM [id number] Signed GP/GP If you are the referring physician and wou ld like to consult with theradiologist who provided this interpretation, please contact Yan Enriquez at [phone]. If this radiologist is unavailable, youwill be directed to another radiol ogist to assist. If you are a patient with a question regarding this report, pleasecontactyour referring physician directly. Professional Interpretation Provided By: [facility], Phone ,Fa x [phone] These documents contain legally protected and confidential [...] 01/31/13 1326 Sign by: Tylor Amor MD 4-Udl-223106:31 DEXA BONE DENSITY STUDY (HP) Radiology Report [...] Amor M.D.January 31, 2013 at 1:13:05 PM [id number] Signed GP/GP If you are the referring ph ysician and would like to consult with theradiologist who provided this interpretation, please contact Yan Enriquez at [phone]. If this radiologist is unavailable, youwill be directed to another radiologist to assist. If you are a patient with a question regarding this report, pleasecontactyour referring physician directly. Professional Interpretation Provided By: [facility], Phone , These documents contain legally protected [...] 0 01/31/13 1318 Sign by: Mt COLLINS,Tylor 21-Rzn-80951:51 LIPID PANEL (87234) Comments: PATIENT WAS FASTINGPERFORMED BY: [facility]6370 [facility] [id number] Information: [id number] LDL Cholesterol Calc 162 mg/dL (Abnormal) Range: 0-99 LDL/HDL Ratio 2.7 {ratio_units} (Normal) Range: 0.0-3.2 VLDL Cholesterol Marysol 24 mg/dL (Normal) Range: 5-40 HDL Cholesterol 61 mg/dL (Normal) Comments: According to ATP-III Guidelines, HDL-C >59 mg/dL is considered anegative risk factor for CHD. Triglycerides 122 mg/dL (Normal) Range: 0-149 Cholesterol, Total 247 mg/dL (Abnormal) Range: 100-199 67-Rzj-915515:18 Microscopic Examination Comments: PATIENT WAS FASTINGPERFORMED BY: [facility]6370 [facility] [id number] Bacteria None seen (Normal) Epithelial Cells (non renal) 0-10 {/hpf} (Normal) Range: 0 - 10 RBC 0-3 {/hpf} (Normal) Range: 0 - 3 WBC 0-5 {/hpf} (Normal) Range: 0 - 5 67-Mfw-134036:18 METABOLIC PANEL, COMPREHENSIVE Comments: PATIENT WAS FASTINGPERFORMED BY: [facility]6370 [facility] [id number] (41652) ALT (SGPT) 16 [iU]/L (Normal) Range: 0-40 [...] Glucose, Serum 88 mg/dL (Normal) Range: 65-99 55-Joi-841937:18 URINALYSIS, W/ MICRO (35581) Comments: PATIENT WAS FASTINGPERFORMED BY: [facility]CarePart[facility] [id number] Microscopic Examination See below: (Normal) Microscopic Examination MICRON (Normal) Comments: Microscopic follows if indicated. Nitrite, Urine Negative (Normal) Urobilinogen,Semi-Qn 0.2 mg/dL (Normal) Range: 0.0-1.9 Bilirubin Negative (Normal) Occult Blood Negative (Normal) Ketones Negative (Normal) Glucose Negative (Normal) Protein Negative (Normal) WBC Esterase Negative (Normal) Appearance Clear (Normal) Urine-Color Yellow (Normal) pH 5.5 (Normal) Range: 5.0-7.5 Specific [place] 1.018 (Normal) Range: 1.005-1.030 :18 LIPID PANEL (51321) Comments: PATIENT WAS FASTINGPERFORMED BY: [facility] [id number] LDL/HDL Ratio 2.8 {ratio_units} (Normal) Range: 0.0-3.2 [...] 100-199 Comments: Please note reference interval change 63-Iku-467625:18 CBC WITH MANUAL DIFF Comments: PATIENT WAS FASTINGPERFORMED BY: LabCoVirtua VoorheesFghmom4476 [facility] [id number] Information: [id number] (93600) Immature Grans (Abs) 0.0 {x10E3/uL} (Normal) Range: [...] 3.77-5.28 WBC 4.4 {x10E3/uL} (Normal) Range: 4.0-10.5 58-Ibh-37579:52 Lipid Panel (45167) Comments: PATIENT WAS FASTINGPERFORMED BY: LabCoVirtua VoorheesXkcjml8402 [facility] [id number] Information: [id number] LDL/HDL Ratio 2.2 {ratio_units} (Normal) Range: 0.0-3.2 LDL Cholesterol Calc 146 mg/dL (Abnormal) Range: 0-99 VLDL Cholesterol Marysol 23 mg/dL (Normal) Range: 5-40 HDL Cholesterol 67 mg/dL (Normal) Comments: According to ATP-III Guidelines, HDL-C >59 mg/dL is considered anegative risk factor for CHD. Triglycerides 115 mg/dL (Normal) Range: 0-149 Cholesterol, Total 236 mg/dL (Abnormal) Range: 100-199 72-Bar-471969:32 BILAT SCRN DIGITAL & CAD Radiology Report [...] radiologist regarding this report, please call our 56L8oqlwmwc line @ Dictated on 01/18/12 1254 [address] COLLINS,GabrieleTranscribed on 01/18/12 1457 by ITS IMPORTSign by Celia garcia MD,Tylor on 01/18/12 1458 Sign by: Tylor Amor MD 95-Sok-908326:12 POTASSIUM SERUM (06693) Comments: PATIENT NOT FASTINGPERFORMED BY: LabCoVirtua VoorheesEgvbtj0185 [facility] [id number] Information: [id number] Potassium, Serum 5.2 mmol/L (Normal) Range: 3.5-5.2 [...] 7-18 GLU 94 mg/dL (Normal) Range: 70-110 91-Vzn-28168:15 COMPLETE UA MUCUS, URINE 0 SEEN {/hpf} [...] 7-18 GLU 93 mg/dL (Normal) Range: 70-110 81-Xwx-924830:37 COMPLETE UA Comments: appt 05/10/11 BACTERIA RARE [...] Serum 9.8 mg/dL (Normal) Comments: PERFORMED BY: [employer] Lmqcjg5837 [facility] [id number] 59 Range: 8.6-10.2 : Phosphorus, Serum 3.6 mg/dL (Normal) Comments: PERFORMED BY: [employer] Vndbth2768 [facility] [id number] Range: 2.5-4.5 :59 Protein Electro, Random Urine Comments: PERFORMED BY: [employer] [address] [place] [address] [id number] Please note: SPRCS (Normal) Comments: Protein electrophoresis scan will follow via computer, mail, orcourier delivery. Gamma Globulin, U 19.1 % (Normal) M-Faisal, % Not Observed % (Normal) Beta Globulin, U 32.4 % (Normal) Dbjtu-4-Wrdffcex, U 20.5 % (Normal) Larfd-4-Cclefpxc, U 4.1 % (Normal) Albumin, U 23.9 % (Normal) Protein,Total,Urine 6.5 mg/dL (Normal) Range: 0.0-15.0 00-Cnd-008654:59 Protein Electro.,S Comments: PERFORMED BY: [employer] Xvtcen3930 [address] [facility] [place] [id number] Please note: SPRCS (Normal) Comments: Protein electrophoresis scan will follow via computer, mail, orcourier delivery. A/G Ratio 1.2 (Normal) Range: 0.7-2.0 Globulin, Total 3.2 g/dL (Normal) Range: 2.0-4.5 M-Faisal Not Observed g/dL (Normal) Rktyo-6-Uuyfsyln 0.2 g/dL (Normal) Range: 0.1-0.4 Nifyg-5-Wexqytgu 0.8 g/dL (Normal) Range: 0.4-1.2 Beta Globulin 1.1 g/dL (Normal) Range: 0.6-1.3 Gamma Globulin 1.1 g/dL (Normal) Range: 0.5-1.6 Albumin 3.9 g/dL (Normal) Range: 3.2-5.6 Protein, Total, Serum 7.1 g/dL (Normal) Range: 6.0-8.5 PTH, Intact 27 pg/mL (Normal) Comments: PERFORMED BY: [employer] [employer] Holdings[employer] [id number] 5:59 Range: 15-65 Sedimentation 5 mm/h (Normal) Comments: PERFORMED BY: GLAMSQUAD Wtzirl7286 [facility] [place] [id number] 5:59 Rate-Westergren Range: 0-30 TSH 1.050 {uIU/mL} Comments: PERFORMED BY: GLAMSQUAD Cpogvd4624 [address] [facility] HospitalBeech Tree Labsblin [place] [id number] 5:59 (Normal) Range: 0.450-4.500 Vitamin D, 25-Hydroxy 39.3 ng/mL Comments: PERFORMED BY: [employer]370 [address] [facility] HospitalDublin [place] [id number] 5:59 (Normal) Range: 32.0-100.0 Comments: Recent studies consider the lower limit of 32.0 ng/mL to be athreshold for optimal health.Carrington WICK. J Nutr. 2004;135(2):317-22. 5-Eiy-578597:55 BILAT SCRN DIGITAL & CAD Radiology Report [...] be sent to the patient by the [facility] within 30 days. Approximately 10% of breast cancers are not detected by mammography. Anormal mammogram should not delay biopsy of a clinically suspiciousabnormality. Dictated on 12/30/10 1348 b Rinku Gambinoscribed on 01/05/11 1047 by ITS IMPORTSign by Tylor Amor on 01/05/11 1048 Sign by: Tylor Amor 5-Mdx-905554:54 DEXA BONE DENSITY STUDY (HP) Radiology Report See Note (Normal) Comments: CLINICAL:Female, 60 years old. The patient is postmenopausal. EXAMINATION:DUAL ENERGY X-RAY ABSORPTIOMETRY / DEXA. TECHNIQUE:Bone Mineral Density (BMD) measurements of lumbar spine and bila teralhipswer e obtained using a [employer] scanner.. COMPARISON:Comparison is made with prior study [...] on 12/30/10 1407 Sign by: Tylor Amor 4-Xto-182648:03 METABOLIC PANEL, COMPREHENSIVE Comments: PATIENT WAS FASTINGPERFORMED BY: [facility]Henry [facility]6370 [facility] [id number] (05096) ALT (SGPT) 17 [iU]/L (Normal) Range: 0-40 [...] Glucose, Serum 97 mg/dL (Normal) Range: 65-99 8-Ppt-930884:03 LIPID PANEL (33655) Comments: PATIENT WAS FASTINGPERFORMED BY: LabCoVirtua VoorheesMbiqcj2704 [facility] [id number] LDL Cholesterol Calc 176 mg/dL (Abnormal) Range: 0-99 LDL/HDL Ratio 2.7 {ratio_units} (Normal) Range: 0.0-3.2 VLDL Cholesterol Marysol 31 mg/dL (Normal) Range: 5-40 Cholesterol, Total 272 mg/dL (Abnormal) Range: 100-199 HDL Cholesterol 65 mg/dL (Normal) Comments: According to ATP-III Guidelines, HDL-C >59 mg/dL is considered anegative risk factor for CHD. Triglycerides 157 mg/dL (Abnormal) Range: 0-149 7-Wzl-910830:03 CBC WITH MANUAL DIFF Comments: PATIENT WAS FASTINGPERFORMED BY: GLAMSQUADVirtua VoorheesRvvezh7909 [facility] [id number] Information: [id number] (38407) Baso (Absolute) 0.1 {x10E3/uL} (Normal) Range: 0.0-0.2 [...] PANEL, COMPREHENSIVE Comments: PATIENT WAS FASTINGPERFORMED BY: GLAMSQUADVirtua VoorheesOxdfwi7668 [facility] [id number] (01259) ALT (SGPT) 23 [iU]/L (Normal) Range: 0-40 [...] mg/dL (Normal) Range: 65-99 29-Jun-20108:38 LIPID PANEL (65788) Comments: PATIENT WAS FASTINGPERFORMED BY: [facility] Icjbgi5765 [facility] [id number] LDL Cholesterol Calc 143 mg/dL (Abnormal) Range: [...] three months (approximately); PATIENT WAS FASTINGPERFORMED BY: LabHenry [facility]6370 [facility] [id number] Information: ADD [id number] AND DRAW FEE 99 6065 (59721) Baso (Absolute) 0.0 {x10E3/uL} (Normal) Range: 0.0-0.2 [...] 3.80-5.10 WBC 4.4 {x10E3/uL} (Normal) Range: 4.0-10.5 14-Wiw-766253:03 BMP BUN/CRE 24.4 {RATIO} (Abnormal) Range: 10-20 [...] (Normal) GLU 91 mg/dL (Normal) Range: 70-110 74-Eti-40322:00 EPIFANIO CULTURE-OTHER (74420) Comments: PATIENT NOT FASTINGPERFORMED BY: LabCoVirtua VoorheesQbhvgm8929 [facility] [id number] Information: SRC: THROAT Result 1 RRF (Normal) Comments: Routine respiratory michelle Upper Respiratory Culture Final report (Normal) 06-Mxn-[id number]:43 Rapid Strep Test, Office ([id number]) Rapid Strep Test, Office Negative (Normal) 15-Idg-64384:35 CBCD,SMEAR DIFF CELLS COUNTED 100 (Normal) EOS [...] Report See Note (Normal) Comments: Exam Number: [id number] CLINICAL:Syncope and CT BRAIN WITH AND WITHOUT [...] There is no rmal enhancement of the lower brule of [place], without a demonstrated aneurysm. Normal [...] GLU 5 HR GLU GTT-5 HOUR from [id number]. 37 Range: 70-110 : GLU GTT-4 HOUR <TEST NOT PERFORMED> Comments: 5HR GTT GLU 4 HR GLU GTT-4 HOUR from [id number]. 45 mg/dL (Normal) Range: 70-110 : GLU GTT-3 HOUR 78 mg/dL (Normal) Comments: 5HR GTT GLU 3 HR GLU GTT-3 HOUR from 921:[id number]. 40 Range: 70-110 : GLU GTT-2 HOUR 134 mg/dL (Abnormal) Comments: 5HR GTT GLU 2 HR GLU GTT-2 HOUR from 921:[id number]. 40 Range: 70-120 :4 GLU GTT-1 HOUR 155 mg/dL (Normal) Comments: 5HR GTT GLU 1 HR GLU GTT-1 HOUR from 921:I54235F. 0 Range: 120-170 :0 GLU GTT-30 min. 180 mg/dL (Abnormal) Comments: 5HR GTT GLU 1/2 HR GLU GTT-30 min. from 921:[id number]. 8 Range: 110-170 Comments: SPECIMEN GROSSLY HEMOLYZED :3 GLU GTT-FASTING 104 mg/dL (Normal) Comments: 5HR GTT FASTING GLU GTT-FASTING from 921:N42786H. 5 Range: 70-110 Comments: GLUCOSE TOLERANCE TEST Reference Interval Non- Adults Fasting 70 - 110 30 minutes 110 - 170 1 hour 120 - 170 2 hour 70 - 120 3 hour 70 - 110 4 hour 70 - 110 5 hour 70 - 110 :3 BEDSIDE GLU 97 mg/dL (Normal) Range: 70-110 3 Comments: Policy and Physicians Orders followed :47 Urinalysis, Office (55926) UA - BILIRUBIN Small (Normal) UA - [...] Report See Note (Normal) Comments: Exam Number: [id number] MAMMOGRAM, UNILATERAL RIGHT DIAGNOSTIC DIGITAL AND CAD [...] werealso e xamined with computer-aided detection software ([employer], [employer] Reported By: AUBRIE CROW M.D. 11-Ris-006892:19 ABDOMEN W/WO IV CONTRAST Radiology Report See Note (Normal) Comments: Exam Number: [id number] CLINICAL:Liver lesion CT ABDOMEN WITH AND WITHOUT [...] sponge kidneys. Reported By: GREGG GLEZ M.D. 84-Fco-83025:28 SERUM CRE & GFR Comments: CALL RESULTS TO [phone] CREAT,SERUM 0.8 mg/dL (Normal) Range: 0.6-1.0 EST GFR 78 mL/min (Normal) EST GFR - AA 95 mL/min (Normal) 50-Kik-05119:29 CERV SPINE,MIN 4 VIEWS Radiology Report See Note (Normal) Comments: Exam Number: [id number] CERVICAL SPINE SERIES, MULTIPLE VIEWS INCLUDING BILATERAL [...] spine series. Reported By: EMMA JETT M.D. 5-Okc-885164:16 UNILAT RT DIAG DIGITAL & CAD Radiology Report See Note (Normal) Comments: Exam Number: [id number] MAMMOGRAM, UNILATERAL RIGHT DIAGNOSTIC DIGITAL AND CAD [...] mammograms werealso examined with computer-aided detection software ([employer], [employer] Reported By: AUBRIE CROW M.D. 01-Cwh-447771:46 BILAT SCRN DIGITAL & CAD Radiology Report See Note (Normal) Comments: Exam Number: [id number] BILATERAL SCREENING MAMMOGRAPHY HISTORYRoutine screening. COMPARISONComparison is [...] Elsewhere no suspiciouscluster of calcification, area of it solutions architect ural distortion, orthree-dimensional spiculated masses. [...] mammogramswere also examined with computer- aided detection software([employer] Reported By: CASSIE QUINTEROS M.D. 05-Sva-116345:17 LIPID CHOL 223 mg/dL (Abnormal) Comments: <200 [...] mg/dL VLDL 19 mg/dL (Normal) Range: 5-40 70-Hho-686959:17 LIVER ALB 3.5 g/dL (Normal) Range: 3.4-5.0 [...] T PROT 7.0 g/dL (Normal) Range: 6.4-8.2 52-Crm-735735:29 MAMM, UILAT DIAG DIGITAL & CAD Radiology Report See Note (Normal) Comments: Exam Number: [id number] MAMMOGRAM, LEFT UNILATERAL DIAGNOSTIC DIGITAL AND CAD [...] mammograms werealso examined with computer-aided detection software ([facility] [place], [employer], [employer] Reported By: AUBRIE CROW M.D. :40 MAMM, BILAT SCRN DIGITAL & CAD Radiology Report See Note (Normal) Comments: Exam Number: [id number] MAMMOGRAM, BILATERAL SCREENING DIGITAL & CAD Full [...] mammograms werealso examined with computer-aided detection software ([employer], [employer] Reported By: AUBRIE CROW M.D. :58 [...] $$$ >=256 R TRIMETHOPRIM/SULFAMETHOXAZ $$ <=10 S 03-Xot-357699:58 ROUTINE UA BILIRUBIN URINE SeeNote (Normal) Comments: [...] 0.2 EU/dl (Normal) Range: 0.2 - 1.0 66-Kqu-303933:10 CBC HCT 41.3 % (Normal) Range: 37-47 HGB 14.2 g/dL (Normal) Range: 12.0-16.0 MCH 30.6 pg (Normal) Range: 27.0-32.0 MCHC 34.4 g/dL (Normal) Range: 32-36 MCV 88.9 fL (Normal) Range: 81-99 PLT 325 K/mm3 (Normal) Range: 150-450 RBC 4.65 {M/mm3} (Normal) Range: 4.2-5.4 RDW 13.3 % (Normal) Range: 11.6-14.6 WBC 6.4 K/mm3 (Normal) Range: 4.4-11.0 33-Hkm-077264:10 COMP METABOLIC A/G 1.1 {RATIO} (Normal) Range: [...] T PROT 7.6 g/dL (Normal) Range: 6.4-8.2 51-Nvb-623976:10 PFLIP CHOL 231 mg/dL (Abnormal) Comments: <200 [...] mg/dL VLDL 20 mg/dL (Normal) Range: 5-40 95-Img-794350:10 ROUTINE UA BILIRUBIN URINE SeeNote (Normal) Comments: [...] Indication: Low back pain Planned Observations IRON ([id number])Indication: Anemia On: :06 Request CBC, Platelets & Auto Diff ([id number])Indication: Anemia On: 41-Jyx-928011:05 Request MICROALBUMIN: CREATININE RATIO (68955) AND (13494)Indication: Benign essential hypertension On: :03 Request Comments: Jul 2017 URINALYSIS ([id number])Indication: Benign essential hypertension On: :03 Request Comments: Jul 2017 TSH (91463)Indication: Benign essential hypertension On: :03 Request Comments: Jul 2017 CBC, Platelets & Auto Diff (06120)Indication: Benign essential hypertension On: :03 Request Comments: Jul 2017 Metabolic Panel, Comprehensive (13959)Indication: Benign essential hypertension On: :02 Request Comments: Jul 2017 URINALYSIS, W/ MICRO ([id number])Indication: Benign essential hypertension On: :22 Request METABOLIC PANEL, COMPREHENSIVE (21559)Indication: Benign essential hypertension On: 27-Zta-191953:22 Request LIPID PANEL (76341)Indication: Benign essential hypertension On: :22 Request CBC with auto diff ([id number])Indication: Benign essential hypertension On: :22 Request Blood Glucose , Office (90985)Indication: SYNCOPE, NOS On: 28-Apq-771582:23 Request LIPID PANEL (69107)Indication: Hyperlipidemia On: :37 Request HEPATIC FUNCTION PANEL (89710)Indication: Hyperlipidemia On: 53-Hxs-995581:37 Request CALCIFIDIOL (52897) VIT D 25Indication: Osteoporosis On: :50 Request CALCIUM SERUM (91846)Indication: Osteoporosis On: :48 Request TSH (53754)Indication: Osteoporosis On: :48 Request UPEP (72193)Indication: Osteoporosis On: :48 Request SPEP (62049)Indication: Osteoporosis On: :47 Request SED RATE ERYTHROCYTE (38265)Indication: Osteoporosis On: :47 Request PHOSPHORUS (92715)Indication: Osteoporosis On: :47 Request PARATHORMONE (09642)Indication: Osteoporosis On: :47 Request URINALYSIS, W/ MICRO (85048)Indication: Benign essential hypertension On: 70-Mjy-054032:00 Request CBC with manual diff ([id number])Indication: Benign essential hypertension On: :40 Request Metabolic Panel, Comprehensive (15783)Indication: Hyperkalemia On: :40 Request Lipid Panel (75234)Indication: Hypercholesterolemia On: :40 Request METABOLIC PANEL, COMPREHENSIVE (92305)Indication: Hypercholesterolemia On: :16 Request LIPID PANEL (66588)Indication: Hypercholesterolemia On: :16 Request Comments: in three months (approximately) Metabolic Panel, Basic (38588)Indication: Benign essential hypertension On: :15 Request Comments: 2 weeks GLUCOSE TOLERANCE TEST (GTT) 5 hour (15394)Indication: SYNCOPE, NOS On: :49 Request Blood Glucose , Office (55190)Indication: SYNCOPE, NOS On: 91-Zpu-057863:47 Request Comments: 92 URINALYSIS W/O MICRO ([id number])Indication: Benign essential hypertension On: :35 Request METABOLIC PANEL, COMPREHENSIVE (92720)Indication: Benign essential hypertension On: 35-Veu-856521:35 Request LIPID PANEL (94049)Indication: Benign essential hypertension On: :35 Request CBC WITH MANUAL DIFF ([id number])Indication: Benign essential hypertension On: 65-Vzl-539639:34 Request MICROALBUMIN: CREATININE RATIO (70398) AND (91973)Indication: Benign essential hypertension On: :08 Request METABOLIC PANEL, COMPREHENSIVE (20545)Indication: Benign essential hypertension On: :08 Request LIPID PANEL (73603)Indication: Benign essential hypertension On: 98-Ryr-059008:08 Request CBC WITH MANUAL DIFF ([id number])Indication: Benign essential hypertension On: 15-Qqx-524512:08 Request CBC (Auto) (77300)Indication: Hypercholesterolemia On: :47 Request Metabolic Panel, Comprehensive (99287)Indication: Hypercholesterolemia On: :47 Request Lipid Panel (08650)Indication: Hypercholesterolemia On: 4-Ouj-346592:46 Request Comments: in three months (approximately) HEPATIC FUNCTION PANEL (82221)Indication: Hypercholesterolemia On: :21 Request LIPID PANEL (59412)Indication: Hypercholesterolemia On: 20-Rwb-855490:21 Request Comments: in six months Planned Procedures SCREENING DIGITAL TOMOSYNTHESIS OF On: 15-Oct-2018 Intent BREAST (44401)By: Radhaa MIHIR Thuy Ciesa LIFE SCIENCE RESEARCH ASSISTANT, Thuy DRAIN/INJECT, JOINT/BURSA (15040)By: On: 15-Oct-2018 Intent Sydneeesa MIHIR, Thuy Ciesa LIFE SCIENCE RESEARCH ASSISTANT, Thuy Radiology - Shoulder - RightBy: On: 10-Sep-2018 Intent Ciesa LIFE SCIENCE RESEARCH ASSISTANT, Thuy [employer] LIFE SCIENCE RESEARCH ASSISTANT, Thuy Toradol Injection, 30 mg (J1885)By: On: 27-Feb-2018 Intent Ciesa LIFE SCIENCE RESEARCH ASSISTANT, Thuy [employer] LIFE SCIENCE RESEARCH ASSISTANT, Thuy Toradol Injection, 30 mg (J1885)By: On: 19-Feb-2018 Intent Ciesa LIFE SCIENCE RESEARCH ASSISTANT, Thuy Ciesa LIFE SCIENCE RESEARCH ASSISTANT, Thuy Radiology - Cervical SpineBy: Ciesa On: 19-Feb-2018 Intent LIFE SCIENCE RESEARCH ASSISTANT, Thuy [employer] LIFE SCIENCE RESEARCH ASSISTANT, Thuy Wax Currettes ([id number])By: Slarb SENIOR LOGISTICS MANAGER, On: 26-Jan-2018 Intent Reyna Ear Irrigation (66075)By: Slarb On: 26-Jan-2018 Intent SENIOR LOGISTICS MANAGER, Reyna PARATHYROID SCAN WITH MIBI AND I-123 On: 14-Jan-2018 Intent (11094)By: Sydneeesa MIHIR, Thuy [employer] LIFE SCIENCE RESEARCH ASSISTANT, Thuy Toradol Injection, 30 mg (J1885)By: On: 12-Jan-2018 Intent Ciesa MIHIR, Thuy Ciesa LIFE SCIENCE RESEARCH ASSISTANT, Thuy SCREENING DIGITAL TOMOSYNTHESIS OF On: 06-Sep-2017 Intent BREAST ([id number])By: Cigeovany ASH, Peggy Lott CNP, Peggy Saldana DEXA SCAN AXIAL SKELETON (89815)By: On: 06-Sep-2017 Intent Oren ASH, Peggy Lott CNP, Peggy Saldana Holter Monitor 24 hrsBy: Oren ASH, On: 23-Jun-2017 Intent Peggy Lott CNP, Peggy Saldana ELECTROCARDIOGRAM, COMPLETE (ECG) On: 23-Jun-2017 Intent (03996)By: Oren ASH, Peggy Lott CNP, Peggy Saldana ELECTROCARDIOGRAM, COMPLETE (ECG) On: 10-Aug-2016 Intent (53607)By: Oren ASH, Peggy Lott CNP, Peggy Saldana ELECTROCARDIOGRAM, COMPLETE (ECG) On: 20-Jul-2016 Intent (31240)By: Peggy Lott CNP, CNP, Peggy Saldana MAMMOGRAM BREAST BILATERAL SCREENING On: 20-Jul-2016 Intent DIGITAL (31668)By: Peggy Lott CNP, CNP, Peggy Saldana INJECTION, PROLIA (J0897)By: Iris On: 16-Oct-2015 Intent Silvana COLLINS Comments: Lot:[id number]:05/14Dose:60mg/mlRoute:sub qSite:l armGiven By:JKMVIS signed DEXA SCAN AXIAL SKELETON (95079)By: On: 08-Jun-2015 Intent Silvana Simmons MD MAMMOGRAM, SCREENING, BOTH BREAST On: 08-Jun-2015 Intent (95506)By: Silvana Simmons MD Echo CompleteBy: Silvana Simmons MD On: 10-Nov-2014 Intent Holter Monitor 24 hrsBy: Iris COLLINS, On: 10-Nov-2014 Intent Silvana Holder Carotid DopplerBy: Silvana Simmons MD On: 10-Nov-2014 Intent M FLU VAC, SPLIT, >3 YEARS, INTRAMUSC On: 26-Sep-2013 Intent (58012)By: Silvana Simmons MD Comments: Lot #:[id number] date:05.10Amount given:0.5mlRoute: IMSite given:L DltdGiven by: Paige ANAYA and ABN signed IMMUNIZ ADMNIN, 1 VAC, SNGL/COMBO On: 26-Sep-2013 Intent (94244)By: Silvana Simmons MD EKG (63345)By: PAIGE Rees On: 26-Sep-2013 Intent Eprescribed prescriptions (G8553)By: On: 12-Feb-2013 Intent Radha Corrales LPN Ear Irrigation (77996)By: Lucio On: 18-Jan-2013 Intent Jayde JONES Comments: Ear Irrigation performed on: r earAmount/color removed cerumen:brownish moderate amountOUtcome:pt tolerated Used wax curettes Wax CurettesBy: Jayde Valdes LPN On: 18-Jan-2013 Intent Phenergan Injection, up to 50 mg On: 15-Jan-2013 Intent (J2550)By: Peggy Lott CNP Comments: give 25mg IMLot #[id number]-82/2014Site-left hipDose-25mggiven by: Claudia Browne LPN CNP, Mary E IMMUNIZ ADMNIN, 1 VAC, SNGL/COMBO On: 14-Aug-2012 Intent (84980)By: Silvana Simmons MD FLU VAC, SPLIT, >3 YEARS, INTRAMUSC On: 14-Aug-2012 Intent (84891)By: Silvana Simmons MD DXA, BONE DENSITY, AXIAL SKELETON On: 14-Aug-2012 Intent (30188)By: Silvana Simmons MD MAMMOGRAM, SCREENING, BOTH BREASTS On: 14-Aug-2012 Intent (51883)By: Silvana Simmons MD Breast Screening - BilateralBy: On: 09-Jan-2012 Intent Silvana Simmons MD EKG (60893)By: Jayde Valdes LPN On: 31-Oct-2011 Intent Comments: sinus rhythm , borderline T abnormal ant leads MAMMOGRAM, SCREENING, BOTH BREASTS On: 18-Nov-2010 Intent (32598)By: Silvana Simmons MD DXA, BONE DENSITY, AXIAL SKELETON On: 18-Nov-2010 Intent (62879)By: Silvana Simmons MD Wax CurettesBy: PAIGE Rees On: 26-Mar-2010 Intent Ear Irrigation (89925)By: Cabrera, On: 26-Mar-2010 Intent PAIGE SPECIMEN HNDLNG/TRNSPRT, OFFC > LAB On: 24-Nov-2009 Intent (58199)By: PAIGE Rees EEGBy: Peggy Lott CNP, CNP, On: 12-Aug-2009 Intent Peggy Saldana Holter Moniter (56656)By: Oren On: 12-Aug-2009 Intent Peggy ASH CNP, Mary E CT - Brain/HeadBy: Peggy Lott CNP On: 12-Aug-2009 Intent Peggy Lott CNP Bio Z (29997)By: Peggy Lott CNP On: 12-Aug-2009 Intent Peggy Lott CNP Echo CompleteBy: Peggy Lott CNP On: 12-Aug-2009 Intent Peggy Lott CNP Cartoid DopplerBy: Peggy Lott CNP On: 12-Aug-2009 Intent Peggy Lott CNP EKG (32193)By: Reanna Becker On: 12-Aug-2009 Intent Radiology - Cervical SpineBy: On: 04-Dec-2008 Intent Silvana Simmons MD Breast Diagnostic - RightBy: Iris On: 17-Nov-2008 Intent Silvana COLLINS Comments: abnormal mammo, 04-04 due for follow up EKG ([id number])By: Silvana Simmons MD On: 17-Nov-2008 Intent MAMMOGRAM, SCREENING, BOTH BREASTS On: 27-Aug-2007 Intent (62436)By: Silvana Simmons MD EKG (51091)By: Silvana Simmons MD On: 27-Aug-2007 Intent Clinical Breast Examination On: 12-Jan-2007 Intent (G0101)By: Silvana Simmons MD MAMMOGRAM, SCREENING, BOTH BREASTS On: 12-Jan-2007 Intent (76687)By: Silvana Simmons MD Comments: after 02-15-07 Toradol Injection, 30 mg (J1885)By: On: 25-Oct-2006 Intent MIGUEL BERMAN CNP Comments: Given IM by Regino. Given inj to prevent ER visit. Pt has history of going to ER with same pain. Radiology - Lumbar SpineBy: CULLEN On: 25-Oct-2006 Intent MIGUEL ASH Planned Medications INJECTION, KETOROLAC TROMETHAMINE, PER 15 MG Ordered: 12-Jan-2018 Pending [employer] LIFE SCIENCE RESEARCH ASSISTANT, Peggy Saldana [employer] LIFE SCIENCE RESEARCH ASSISTANT, Peggy Saldana INJECTION, KETOROLAC TROMETHAMINE, PER 15 MG Ordered: 19-Feb-2018 Pending Ciesa LIFE SCIENCE RESEARCH ASSISTANT, Thuy [employer] LIFE SCIENCE RESEARCH ASSISTANT, Thuy INJECTION, KETOROLAC TROMETHAMINE, PER 15 MG Ordered: 27-Feb-2018 Pending [employer] LIFE SCIENCE RESEARCH ASSISTANT, Peggy Saldana [employer] LIFE SCIENCE RESEARCH ASSISTANT, Peggy Saldana INJECTION, PROLIA Ordered: 16-Oct-2015 Pending Silvana Simmons MD Phenergan 50 MG/ML Injection Solution Ordered: 15-Jan-2013 Pending Radhaa LIFE SCIENCE RESEARCH ASSISTANT, Peggy Lott LIFE SCIENCE RESEARCH ASSISTANT, Peggy Saldana Instructions Name Dates Details Nonsmoker [...] patient does not have durable power of workers compensation attorney or living will. The patient has [...] ,emotional problems (depression) ,hypertension and other (hyperlipidemia, IGIUGIG, low back pain, osteopenia ). Note for [...] [facility] End: 21-Aug-2006 15:45 Payers [place]/Medicare Lilliana Felix; stanley guarantor
--- OUTSIDE RECORDS SUMMARY | 2019-02-15 03:18 | XMS RPT_ITS | Continuity of Care Document ---
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 (Normal) Range: 0 - 2 WBC 0-5 {/hpf} (Normal) Range: 0 - 5 95-Bui-197835:20 METABOLIC PANEL, COMPREHENSIVE Comments: PATIENT WAS FASTINGPERFORMED BY: [facility]Choice6370 [facility] [id number] (87079) ALT (SGPT) 17 [iU]/L (Normal) Range: 0-32 [...] Glucose, Serum 81 mg/dL (Normal) Range: 65-99 31-Ehe-806218:20 URINALYSIS, W/ MICRO (62419) Comments: PATIENT WAS FASTINGPERFORMED BY: [facility] [id number] Microscopic Examination See below: (Normal) Comments: Microscopic was indicated and was performed. Microscopic Examination MICRON (Normal) Comments: Microscopic follows if indicated. Nitrite, Urine Negative (Normal) Urobilinogen,Semi-Qn 0.2 mg/dL (Normal) Range: 0.2-1.0 Bilirubin Negative (Normal) Occult Blood Negative (Normal) Ketones Negative (Normal) Glucose Negative (Normal) Protein Negative (Normal) WBC Esterase Negative (Normal) Appearance Clear (Normal) Urine-Color Yellow (Normal) pH 6.5 (Normal) Range: 5.0-7.5 Specific [place] 1.013 (Normal) Range: 1.005-1.030 89-Qqs-611573:20 CBC with auto diff (36607) Comments: PATIENT WAS FASTINGPERFORMED BY: Choozle70 [facility] [id number] Immature Grans (Abs) 0.0 {x10E3/uL} (Normal) Range: [...] 3.77-5.28 WBC 6.1 {x10E3/uL} (Normal) Range: 3.4-10.8 14-Cea-219689:20 TSH (78252) Comments: PATIENT WAS FASTINGPERFORMED BY: SLEDVision [facility] [id number] TSH 0.689 {uIU/mL} (Normal) Range: 0.450-4.500 76-Teb-970512:20 MICROALBUMIN: CREATININE RATIO Comments: PATIENT WAS FASTINGPERFORMED BY: Agenda TraceLink [facility] [id number] ([id number]) AND (76876) Microalb/Creat Ratio <6.5 {mg/g_creat} (Normal) Range: 0.0-30.0 Microalbumin, Urine <3.0 ug/mL (Normal) Creatinine, Urine 46.2 mg/dL (Normal) 4-Ybo-293961:40 HEPATIC FUNCTION PANEL Comments: PATIENT WAS FASTINGPERFORMED BY: Agenda TraceLink [facility] [id number] (51956) ALT (SGPT) 38 [iU]/L (Abnormal) Range: 0-32 AST (SGOT) 35 [iU]/L (Normal) Range: 0-40 Alkaline Phosphatase, S 65 [iU]/L (Normal) Range: 39-117 Bilirubin, Direct 0.14 mg/dL (Normal) Range: 0.00-0.40 Bilirubin, Total 0.4 mg/dL (Normal) Range: 0.0-1.2 Albumin, Serum 4.3 g/dL (Normal) Range: 3.6-4.8 Protein, Total, Serum 6.8 g/dL (Normal) Range: 6.0-8.5 4-Dbn-986992:40 LIPID PANEL (39809) Comments: PATIENT WAS FASTINGPERFORMED BY: [facility] Xipzcy5462 [facility] [id number] LDL/HDL Ratio 1.2 {ratio_units} (Normal) Range: 0.0-3.2 Comments: LDL/HDL Ratio Men Women 1/2 Avg.Risk 1.0 1.5 Av g.Risk 3.6 3.2 2X Avg.Risk 6.2 5.0 3X Avg.Risk 8.0 6.1 LDL Cholesterol Calc 84 mg/dL (Normal) Range: 0-99 VLDL Cholesterol Marysol 20 mg/dL (Normal) Range: 5-40 HDL Cholesterol 73 mg/dL (Normal) Triglycerides 98 mg/dL (Normal) Range: 0-149 Cholesterol, Total 177 mg/dL (Normal) Range: 100-199 8-Pma-978431:45 Culture, Urine Comments: [facility] [address] [place], [address] CUUR See Note (Normal) Comments: Urine CultureRESULTS CALLED TO PAXTON 08/31/16 3898 Tamera Ram. REPORT READ BACK BY SAME. [...] >=320 R(NF) indicates non- formulary drug at [facility]. Approval by Infectious Disease Specialist required before non-formulary drugs may be ordered and/or dispensed. 01-Rel-924443:06 Urinalysis, Office (87421) UA - LEUKOCYTE ESTERASE Trace (Normal) UA - NITRITE Positive (Normal) URINE UROBILINGN RONALD TIMED Normal mg/dL (Normal) UA - PROTEIN Negative mg/dL (Normal) UA - PH 6 (Abnormal) UA - BLOOD Hemolyzed Small (Normal) UA - SPECIFIC GRAVITY 1.025 (Normal) UA - KETONES Negative mg/dL (Normal) UA - BILIRUBIN Negative (Normal) UA - GLUCOSE Negative (Normal) 40-Onw-443988:13 CBC, Platelets & Auto Comments: PATIENT WAS FASTINGPERFORMED BY: [facility]CoHealth[facility] Toms RiverMmdtfr6016 [facility] [id number] Information: [id number] Diff (11416) Immature Grans (Abs) 0.0 {x10E3/uL} (Normal) Range: [...] 3.77-5.28 WBC 7.2 {x10E3/uL} (Normal) Range: 3.4-10.8 21-Xnz-598179:13 TSH (05277) Comments: PATIENT WAS FASTINGPERFORMED BY: [facility]romHealth[facility] Toms RiverLzdyyl2939 [facility] [id number] TSH 0.907 {uIU/mL} (Normal) Range: 0.450-4.500 :13 Lipid Panel (92162) Comments: PATIENT WAS FASTINGPERFORMED BY: [facility]romHealth[facility] Toms RiverTcskof2011 [facility] [id number] LDL/HDL Ratio 2.2 {ratio_units} (Normal) Range: 0.0-3.2 [...] Panel, Comprehensive Comments: PATIENT WAS FASTINGPERFORMED BY: [facility]6370 [facility] [id number] (12355) ALT (SGPT) 25 [iU]/L (Normal) Range: 0-32 [...] Glucose, Serum 92 mg/dL (Normal) Range: 65-99 08-Fvp-428522:58 URINE EPIFANIO CULTURE-RONALD COL Comments: Forward to Dr Eduardo, Urology, [place], [place]; PATIENT NOT FASTINGPERFORMED BY: [facility]CoHealth[facility] Toms RiverDgwqjy3756 [facility] [id number] Information: SRC:URC [id number] COUNT (99646) Result 1 MUG (Normal) Comments: Mixed urogenital flora5,000 Colonies/mL Urine Culture,Comprehensive Final report (Normal) 12-Pik-878859:55 Urinalysis, Office (76042) UA - GLUCOSE Negative (Normal) UA - BILIRUBIN Negative (Normal) UA - KETONES Negative mg/dL (Normal) UA - SPECIFIC GRAVITY 1.025 (Normal) UA - BLOOD Hemolyzed Trace (Normal) UA - PH 6 (Abnormal) UA - PROTEIN Negative mg/dL (Normal) URINE UROBILINGN RONALD TIMED Normal mg/dL (Normal) UA - NITRITE Negative (Normal) UA - LEUKOCYTE ESTERASE Negative (Normal) :01 Vitamin D Hydroxy (04948) Comments: PATIENT NOT FASTINGPERFORMED BY: [facility] [id number] Vitamin D, 25-Hydroxy 33.2 ng/mL (Normal) Range: 30.0-100.0 Comments: Vitamin D deficiency has been defined by the [place] [employer] and an Endocrine Society practice guideline as alevel of serum 25-OH vitamin D less than 20 ng/mL (1,2).The Endocrine Society went on to further define vitamin Dinsufficiency as a level between 21 and 29 ng/mL (2).1. IOM ([place] [employer]). 2010. Dietary reference intakes for calcium and D. [place]: The National Academies Press.2. Mica MF, Dami LION, Sheri CHAVEZ, et al. Evaluation, treatment, and prevention of vitamin D deficiency: an Endocrine Society clinical practice guideline. JCEM. 2010; 96(7):1911-30. :01 SPEP (50155) Comments: PATIENT NOT FASTINGPERFORMED BY: [facility] Okzjtt9096 [facility] [id number] Information: [id number] Please note: SPRCS (Normal) Comments: Protein electrophoresis scan will follow via computer, mail, orcourier delivery. A/G Ratio 1.3 (Normal) Range: 0.7-2.0 Globulin, Total 3.2 g/dL (Normal) Range: 2.0-4.5 M-Faisal Not Observed g/dL (Normal) Gamma Globulin 1.1 g/dL (Normal) Range: 0.5-1.6 Beta Globulin 1.1 g/dL (Normal) Range: 0.6-1.3 Sozyu-1-Shfgugtm 0.8 g/dL (Normal) Range: 0.4-1.2 Zjfep-7-Zehbwywp 0.3 g/dL (Normal) Range: 0.1-0.4 Albumin 4.2 g/dL (Normal) Range: 3.2-5.6 Protein, Total, Serum 7.4 g/dL (Normal) Range: 6.0-8.5 :01 TSH (28201) Comments: PATIENT NOT FASTINGPERFORMED BY: ROBERT LabCo Jvsrrq2791 [facility] [id number] TSH 0.956 {uIU/mL} (Normal) Range: 0.450-4.500 9-Kwp-877396:01 PARATHORMONE (50220) Comments: PATIENT NOT FASTINGPERFORMED BY: CB [facility] Xmmtaj3524 [facility] [id number] PTH, Intact 53 pg/mL (Normal) Range: 15-65 :01 SED RATE ERYTHROCYTE (88171) Comments: PATIENT NOT FASTINGPERFORMED BY: ROBERT [facility] Jktmyu0274 [facility] [id number] Sedimentation Rate-Westergren 6 mm/h (Normal) Range: 0-40 :01 ALKALINE PHOSPHATASE (44423) Comments: PATIENT NOT FASTINGPERFORMED BY: [facility] Bdxdof8728 [facility] [id number] Alkaline Phosphatase, S 75 [iU]/L (Normal) Range: 39-117 :01 C-REACTIVE PROTEIN (64619) Comments: PATIENT NOT FASTINGPERFORMED BY: [facility] Ckubog6330 [facility] [id number] C-Reactive Protein, Quant 1.5 mg/L (Normal) Range: 0.0-4.9 78-Ogx-619170:10 Urinalysis, Complete Comments: Order Date: 07/26/15How was Urine Obtained? CLEAN CATCHTest performed at:[facility] [address] [place], [place] [address] MUCUS, URINE 0 SEEN {/hpf} (Normal) BACTERIA [...] (Normal) CLARITY Clear (Normal) COLOR Yellow (Normal) 87-Aft-448285:26 Basic Metabolic Profile (BMP) Comments: Test performed at:[facility] [address] [place], [place] [address] GAP 6 (Normal) Range: 5-15 CO2 26.0 [...] 7-18 GLU 91 mg/dL (Normal) Range: 70-110 16-Xdm-191631:26 CBC W/Diff, Automated Comments: Test performed at:[facility] [address] [place] [address] Absolute Lymph 1.55 {X10_3/ul} (Normal) [...] Panel (7) Comments: PATIENT WAS FASTINGPERFORMED BY: Choozle70 Rolon [facility] [id number] ALT (SGPT) 17 [iU]/L (Normal) Range: 0-32 AST (SGOT) 24 [iU]/L (Normal) Range: 0-40 Alkaline Phosphatase, S 63 [iU]/L (Normal) Range: 39-117 Bilirubin, Direct 0.16 mg/dL (Normal) Range: 0.00-0.40 Bilirubin, Total 0.7 mg/dL (Normal) Range: 0.0-1.2 Albumin, Serum 4.6 g/dL (Normal) Range: 3.6-4.8 Protein, Total, Serum 7.2 g/dL (Normal) Range: 6.0-8.5 :19 Lipid Panel With LDL/HDL Comments: PATIENT WAS FASTINGPERFORMED BY: [facility]endaHealthSouth - [facility] Toms RiverBftcbi2227 [facility] [id number] Information: [id number] Ratio LDL/HDL Ratio 2.6 {ratio_units} (Normal) Range: [...] Cholesterol, Total 257 mg/dL (Abnormal) Range: 100-199 10-Rhj-779953:14 Culture, Urine Comments: Test performed at:[facility] Sstbrfgljx3224 [facility] [place] [address] CUUR See Note (Normal) Comments: [...] $ <=20 S(NF) indicates non-formulary drug at [facility]. Approval by Infectious Disease Specialist required before non- formulary drugs may be ordered and/or dispensed. 47-Yof-550535:14 Urinalysis, Routine (Dipstick) Comments: How was Urine Obtained? CLEAN CATCHTest performed at:[facility] [address] [place], [place] [address] LEUK ESTERASE 100 /ul (Abnormal) OCCULT BLOOD-UR 10 /ul (Abnormal) NITRITE UR Positive (Abnormal) UROBILI Normal mg/dL (Normal) PROT DIPSTX Negative mg/dL (Normal) pH UR 7.0 (Normal) Range: 5.0 - 8.0 SP.GR. DIPSTX 1.010 (Normal) Range: 1.002-1.030 KETONE UR Negative mg/dL (Normal) BILIRUBIN URINE Negative mg/dL (Normal) GLUCOSE, UR Normal mg/dL (Normal) CLARITY Sl. Cloudy (Normal) COLOR Yellow (Normal) 72-Hce-924125:16 URINE EPIFANIO CULTURE (RONALD Comments: PATIENT NOT FASTINGPERFORMED BY: [facility] Fabpsh6589 [facility] [id number] Information: SRC:UR [id number] COL COUNT) (26126) Result 1 CNSNSS (Abnormal) Comments: Coagulase negative [...] S Urine Final report Culture,Comprehens (Abnormal) tito 0-Cjt-835595:25 Culture, Urine Comments: Test performed at:[facility] [address]ib[address] [place] [address] CUUR See Note (Normal) Comments: Order Date: [...] $ <=20 S(NF) indicates non-formulary drug at [facility]. Approval by Infectious Disease Specialist required before non-formulary drugs may be ordered and/or dispensed. :24 MICROALBUMIN: CREATININE RATIO Comments: PATIENT WAS FASTINGPERFORMED BY: [facility]umChoice6370 [facility] [id number] (38482) AND (89984) Microalb/Creat Ratio 1.3 {mg/g_creat} (Normal) Range: 0.0-30.0 Microalbumin, Urine 1.5 ug/mL (Normal) Range: 0.0-17.0 Creatinine, Urine 118.7 mg/dL (Normal) Range: 15.0-278.0 :24 METABOLIC PANEL, COMPREHENSIVE Comments: PATIENT WAS FASTINGPERFORMED BY: PlumChoice6370 [facility] [id number] (57157) ALT (SGPT) 22 [iU]/L (Normal) Range: 0-32 [...] mg/dL (Normal) Range: 65-99 :24 LIPID PANEL (57992) Comments: PATIENT WAS FASTINGPERFORMED BY: Choozle70 [facility] [id number] LDL/HDL Ratio 2.6 {ratio_units} (Normal) Range: 0.0-3.2 Comment: LDLCOM (Normal) Comments: Possible Familial Hypercholesterolemia. FH should be suspected whenfasting LDL cholesterol is above 189 mg/dL or non-HDL cholesterolis above 219 mg/dL. A family history of high cholesterol and heartdise ase in 1st degree relatives should be collected. J Clin Fcfponx3959;5:133-140 LDL Cholesterol Calc 206 mg/dL (Abnormal) Range: 0-99 VLDL Cholesterol Marysol 16 mg/dL (Normal) Range: 5-40 HDL Cholesterol 79 mg/dL (Normal) Comments: According to ATP-III Guidelines, HDL-C >59 mg/dL is considered anegative risk factor for CHD. Triglycerides 82 mg/dL (Normal) Range: 0-149 Cholesterol, Total 301 mg/dL (Abnormal) Range: 100-199 :24 CBC WITH MANUAL DIFF Comments: PATIENT WAS FASTINGPERFORMED BY: PlumChoice6370 [facility] HospitalThe MillEC[facility] [id number] Information: [id number] (57084) Immature Grans (Abs) 0.0 {x10E3/uL} (Normal) Range: [...] 3.77-5.28 WBC 4.8 {x10E3/uL} (Normal) Range: 3.4-10.8 8-Hvg-652004:31 [facility] DIGITAL & CAD Radiology Report See Note [...] Amor M.D.January 31, 2013 at 1:16:07 PM [id number] Signed GP/GP If you are the referring physician and wou ld like to consult with theradiologist who provided this interpretation, please contact Yan Enriquez at [phone]. If this radiologist is unavailable, youwill be directed to another radiol ogist to assist. If you are a patient with a question regarding this report, pleasecontactyour referring physician directly. Professional Interpretation Provided By: [employer] Phone ,Fa x [phone] These documents contain legally protected and confidential [...] 01/31/13 1326 Sign by: Tylor Amor MD 7-Sie-736367:31 DEXA BONE DENSITY STUDY (HP) Radiology Report [...] Amor M.D.January 31, 2013 at 1:13:05 PM [id number] Signed GP/GP If you are the referring ysician and would like to consult with theradiologist who provided this interpretation, please contact Yan Enriquez at [phone]. If this radiologist is unavailable, youwill be directed to another radiologist to assist. If you are a patient with a question regarding this report, pleasecontactyour referring physician directly. Professional Interpretation Provided By: [employer] Phone , These documents contain legally protected [...] 01/31/13 1318 Sign by: Tylor Amor MD 43-Eou-61266:51 LIPID PANEL (32511) Comments: PATIENT WAS FASTINGPERFORMED BY: appiris [facility] [id number] Information: [id number] LDL Cholesterol Calc 162 mg/dL (Abnormal) Range: 0-99 LDL/HDL Ratio 2.7 {ratio_units} (Normal) Range: 0.0-3.2 VLDL Cholesterol Marysol 24 mg/dL (Normal) Range: 5-40 HDL Cholesterol 61 mg/dL (Normal) Comments: According to ATP-III Guidelines, HDL-C >59 mg/dL is considered anegative risk factor for CHD. Triglycerides 122 mg/dL (Normal) Range: 0-149 Cholesterol, Total 247 mg/dL (Abnormal) Range: 100-199 63-Mxc-762684:18 Microscopic Examination Comments: PATIENT WAS FASTINGPERFORMED BY: FanChatterDublin [place] [id number] Bacteria None seen (Normal) Epithelial Cells (non renal) 0-10 {/hpf} (Normal) Range: 0 - 10 RBC 0-3 {/hpf} (Normal) Range: 0 - 3 WBC 0-5 {/hpf} (Normal) Range: 0 - 5 82-Vhf-573377:18 METABOLIC PANEL, COMPREHENSIVE Comments: PATIENT WAS FASTINGPERFORMED BY: ROBERT Knowrom Zogvfr3285 [facility] [id number] (40291) ALT (SGPT) 16 [iU]/L (Normal) Range: 0-40 [...] Glucose, Serum 88 mg/dL (Normal) Range: 65-99 89-Htj-960505:18 URINALYSIS, W/ MICRO (45459) Comments: PATIENT WAS FASTINGPERFORMED BY: [employer]enda Iphlxr5969 [facility] [id number] Microscopic Examination See below: (Normal) Microscopic Examination MICRON (Normal) Comments: Microscopic follows if indicated. Nitrite, Urine Negative (Normal) Urobilinogen,Semi-Qn 0.2 mg/dL (Normal) Range: 0.0-1.9 Bilirubin Negative (Normal) Occult Blood Negative (Normal) Ketones Negative (Normal) Glucose Negative (Normal) Protein Negative (Normal) WBC Esterase Negative (Normal) Appearance Clear (Normal) Urine-Color Yellow (Normal) pH 5.5 (Normal) Range: 5.0-7.5 Specific [place] 1.018 (Normal) Range: 1.005-1.030 :18 LIPID PANEL (18671) Comments: PATIENT WAS FASTINGPERFORMED BY: [employer] User Swedenlin6370 [facility] [id number] LDL/HDL Ratio 2.8 {ratio_units} (Normal) Range: 0.0-3.2 [...] MANUAL DIFF Comments: PATIENT WAS FASTINGPERFORMED BY: AgendaHealthSouth - [facility] Toms RiverEncbuo3918 [facility] [id number] Information: [id number] (29634) Immature Grans (Abs) 0.0 {x10E3/uL} (Normal) Range: [...] {x10E3/uL} (Normal) Range: 4.0-10.5 :52 Lipid Panel (77048) Comments: PATIENT WAS FASTINGPERFORMED BY: [facility] [id number] Information: [id number] LDL/HDL Ratio 2.2 {ratio_units} (Normal) Range: 0.0-3.2 LDL Cholesterol Calc 146 mg/dL (Abnormal) Range: 0-99 VLDL Cholesterol [place] 23 mg/dL (Normal) Range: 5-40 HDL Cholesterol 67 mg/dL (Normal) Comments: According to ATP-III Guidelines, HDL-C >59 mg/dL is considered anegative risk factor for CHD. Triglycerides 115 mg/dL (Normal) Range: 0-149 Cholesterol, Total 236 mg/dL (Abnormal) Range: 100-199 38-Pau-997044:32 BILAT SCRN DIGITAL & CAD Radiology Report [...] radiologist regarding this report, please call our [id number] line @ Dictated on 01/18/12 1254 [address] Mt COLLINS,Yordyranscribed on 01/18/12 1457 by ITS IMPORTSign by Tylor Silverio MD on 01/18/12 1458 Sign by: Tylor Amor MD 09-Nyo-464943:12 POTASSIUM SERUM (89280) Comments: PATIENT NOT FASTINGPERFORMED BY: [facility] [id number] Information: [id number] Potassium, Serum 5.2 mmol/L (Normal) Range: 3.5-5.2 42-Tpp-08716:15 CBCD,SMEAR DIFF RED CELL MORPH SeeNote {NORMAL} [...] 4.2-5.4 WBC 6.9 K/mm3 (Normal) Range: 4.4-11.0 73-Ook-412251:37 COMP METABOLIC CO2 32.0 mmol/L (Normal) Range: [...] 9.8 mg/dL (Normal) Comments: PERFORMED BY: ROBERT LabMcl[facility] Region6370 [facility] [id number] 59 Range: 8.6-10.2 : Phosphorus, Serum 3.6 mg/dL (Normal) Comments: PERFORMED BY: [facility] [id number] Range: 2.5-4.5 :59 Protein Electro, Random Urine Comments: PERFORMED BY: [facility] [id number] Please note: SPRCS (Normal) Comments: Protein electrophoresis scan will follow via computer, mail, orcourier delivery. Gamma Globulin, U 19.1 % (Normal) M-Faisal, % Not Observed % (Normal) Beta Globulin, U 32.4 % (Normal) Yrgob-3-Etbksgbl, U 20.5 % (Normal) Rdaij-5-Fsroxohj, U 4.1 % (Normal) Albumin, U 23.9 % (Normal) Protein,Total,Urine 6.5 mg/dL (Normal) Range: 0.0-15.0 :59 Protein Electro.,S Comments: PERFORMED BY: LegalZoomMcl[facility] Region6370 [facility] [id number] Please note: SPRCS (Normal) Comments: Protein electrophoresis scan will follow via computer, mail, orcourier delivery. A/G Ratio 1.2 (Normal) Range: 0.7-2.0 Globulin, Total 3.2 g/dL (Normal) Range: 2.0-4.5 M-Faisal Not Observed g/dL (Normal) Fusnt-6-Wfnsfsjl 0.2 g/dL (Normal) Range: 0.1-0.4 Vonpo-1-Ugwnqtjl 0.8 g/dL (Normal) Range: 0.4-1.2 Beta Globulin 1.1 g/dL (Normal) Range: 0.6-1.3 Gamma Globulin 1.1 g/dL (Normal) Range: 0.5-1.6 Albumin 3.9 g/dL (Normal) Range: 3.2-5.6 Protein, Total, Serum 7.1 g/dL (Normal) Range: 6.0-8.5 PTH, Intact 27 pg/mL (Normal) Comments: PERFORMED BY: [facility] [id number] 5:59 Range: 15-65 Sedimentation 5 mm/h (Normal) Comments: PERFORMED BY: [facility] Hznwpb8783 [facility] [id number] 5:59 Rate-Westergren Range: 0-30 TSH 1.050 {uIU/mL} Comments: PERFORMED BY: [facility] Lefnpc8781 [facility] [id number] 5:59 (Normal) Range: 0.450-4.500 Vitamin D, 25-Hydroxy 39.3 ng/mL Comments: PERFORMED BY: [facility] Uulmlm2626 [facility] [id number] 5:59 (Normal) Range: 32.0-100.0 Comments: Recent studies [...] be [facility] the [facility] days. Approximately 10% of breast cancers are not detected by mammography. Anormal mammogram should not delay biopsy of a clinically suspiciousabnormality. Dictated on 12/30/10 1348 Yordy Ortizranscribed on 01/05/11 1047 by ITS IMPORTSign by Tylor Amor on 01/05/11 1048 Sign by: Tylor Amor 2-Nne-943979:54 DEXA BONE DENSITY STUDY (HP) Radiology Report See Note (Normal) Comments: CLINICAL:Female, 60 years old. The patient is postmenopausal. EXAMINATION:DUAL ENERGY X-RAY ABSORPTIOMETRY / DEXA. TECHNIQUE:Bone Mineral Density (BMD) measurements of lumbar spine and bila teralhipswer e obtained using a [employer] scanner.. COMPARISON:Comparison is made with prior study [...] on 12/30/10 1407 Sign by: Tylor Amor 1-Zsi-231341:03 METABOLIC PANEL, COMPREHENSIVE Comments: PATIENT WAS FASTINGPERFORMED BY: LabCoHealthSouth - [facility] Toms RiverXexpgx2100 [facility] [id number] (55126) ALT (SGPT) 17 [iU]/L (Normal) Range: 0-40 [...] mg/dL (Normal) Range: 65-99 :03 LIPID PANEL (19881) Comments: PATIENT WAS FASTINGPERFORMED BY: KnowromHealthSouth - [facility] Toms RiverRozigw8170 [facility] [facility] [id number] LDL Cholesterol Calc 176 mg/dL (Abnormal) Range: [...] MANUAL DIFF Comments: PATIENT WAS FASTINGPERFORMED BY: [facility] RiverYquqht1819 [facility] [id number] Information: [id number] ([id number]) Baso (Absolute) 0.1 {x10E3/uL} (Normal) Range: 0.0-0.2 [...] PANEL, COMPREHENSIVE Comments: PATIENT WAS FASTINGPERFORMED BY: [facility]CoHealth[facility] Toms RiverLenzbi6175 [facility] [id number] ([id number]) ALT (SGPT) 23 [iU]/L (Normal) Range: 0-40 [...] mg/dL (Normal) Range: 65-99 :38 LIPID PANEL (12543) Comments: PATIENT WAS FASTINGPERFORMED BY: [employer]le[employer] [facility] [id number] LDL Cholesterol Calc 143 mg/dL (Abnormal) Range: [...] three months (approximately); PATIENT WAS FASTINGPERFORMED BY: Choozle70 [facility] [id number] Information: ADD [id number] AND DRAW FEE [id number] [phone] (07910) Baso (Absolute) 0.0 {x10E3/uL} (Normal) Range: 0.0-0.2 [...] 3.80-5.10 WBC 4.4 {x10E3/uL} (Normal) Range: 4.0-10.5 54-Wpg-687437:03 BMP BUN/CRE 24.4 {RATIO} (Abnormal) Range: 10-20 [...] (Normal) GLU 91 mg/dL (Normal) Range: 70-110 03-Smr-09988:00 EPIFANIO CULTURE-OTHER ([id number]) Comments: PATIENT NOT FASTINGPERFORMED BY: [facility] [place] [id number] [facility] [id number] Information: SRC: THROAT Result 1 RRF (Normal) Comments: Routine respiratory michelle Upper Respiratory Culture Final report (Normal) 04-Ddb-668610:43 Rapid Strep Test, Office (74907) Rapid Strep Test, Office Negative (Normal) :35 [...] Report See Note (Normal) Comments: Exam Number: [id number] CLINICAL:Syncope and CT BRAIN WITH AND WITHOUT [...] There is no rmal enhancement of the [place], without a demonstrated aneurysm. Normal [...] GLU 5 HR GLU GTT-5 HOUR from 921:O69123Q. 37 Range: 70-110 : GLU GTT-4 HOUR <TEST NOT PERFORMED> Comments: 5HR GTT GLU 4 HR GLU GTT-4 HOUR from 22:D32555C. 45 mg/dL (Normal) Range: 70-110 : GLU GTT-3 HOUR 78 mg/dL (Normal) Comments: 5HR GTT GLU 3 HR GLU GTT-3 HOUR from 22:B12096G. 40 Range: 70-110 27-Hfj-771287: GLU GTT-2 HOUR 134 mg/dL (Abnormal) Comments: 5HR GTT GLU 2 HR GLU GTT-2 HOUR from 22:G92189I. 40 Range: 70-120 :4 GLU GTT-1 HOUR 155 mg/dL (Normal) Comments: 5HR GTT GLU 1 HR GLU GTT-1 HOUR from 22:F57295S. 0 Range: 120-170 :0 GLU GTT-30 min. 180 mg/dL (Abnormal) Comments: 5HR GTT GLU 1/2 HR GLU GTT-30 min. from 921:N90705Q. 8 Range: 110-170 Comments: SPECIMEN GROSSLY HEMOLYZED :3 GLU GTT-FASTING 104 mg/dL (Normal) Comments: 5HR GTT FASTING GLU GTT-FASTING from 921:C37932Y. 5 Range: 70-110 Comments: GLUCOSE TOLERANCE TEST Reference Interval Non- Adults Fasting 70 - 110 30 minutes 110 - 170 1 hour 120 - 170 2 hour 70 - 120 3 hour 70 - 110 4 hour 70 - 110 5 hour 70 - 110 05-Dxa-43142:3 BEDSIDE GLU 97 mg/dL (Normal) Range: 70-110 3 Comments: Policy and Physicians Orders followed 69-Uri-798816:47 Urinalysis, Office (23097) UA - BILIRUBIN Small (Normal) UA - BLOOD Hemolyzed Small (Normal) UA - GLUCOSE Negative (Normal) UA - KETONES Negative mg/dL (Normal) UA - LEUKOCYTE ESTERASE Small (Normal) Comments: aw UA - NITRITE Negative (Normal) UA - PH 5.0 (Normal) UA - PROTEIN Negative mg/dL (Normal) UA - SPECIFIC GRAVITY 1.025 (Normal) URINE UROBILINGN RONALD TIMED Normal mg/dL (Normal) 19-Fdt-184516:23 UNILAT RT DIAG DIGITAL & CAD Radiology Report See Note (Normal) Comments: Exam Number: [id number] MAMMOGRAM, UNILATERAL RIGHT DIAGNOSTIC DIGITAL AND CAD [...] werealso e xamined with computer-aided detection software ([employer] Reported By: AUBRIE CROW M.D. 48-Wxf-667660:19 ABDOMEN W/WO IV CONTRAST Radiology Report See Note (Normal) Comments: Exam Number: [id number] CLINICAL:Liver lesion CT ABDOMEN WITH AND WITHOUT [...] sponge kidneys. Reported By: GREGG GLEZ M.D. 74-Wlj-18275:28 SERUM CRE & GFR Comments: CALL RESULTS TO [phone] CREAT,SERUM 0.8 mg/dL (Normal) Range: 0.6-1.0 EST GFR 78 mL/min (Normal) EST GFR - AA 95 mL/min (Normal) 42-Vqb-03870:29 CERV SPINE,MIN 4 VIEWS Radiology Report See Note (Normal) Comments: Exam Number: [id number] CERVICAL SPINE SERIES, MULTIPLE VIEWS INCLUDING BILATERAL [...] spine series. Reported By: EMMA JETT M.D. 0-Sto-560058:16 UNILAT RT DIAG DIGITAL & CAD Radiology Report See Note (Normal) Comments: Exam Number: [id number] MAMMOGRAM, UNILATERAL RIGHT DIAGNOSTIC DIGITAL AND CAD [...] mammograms werealso examined with computer-aided detection software ([employer]). Reported By: AUBRIE CROW M.D. 16-Ajl-305351:46 BILAT SCRN DIGITAL & CAD Radiology Report See Note (Normal) Comments: Exam Number: [id number] BILATERAL SCREENING MAMMOGRAPHY HISTORYRoutine screening. COMPARISONComparison is [...] no suspiciouscluster of calcification, area of computer systems architect ural distortion, orthree-dimensional spiculated masses. IMPRESSION1. [...] mammogramswere also examined with computer- aided detection software([employer] Reported By: CASSIE QUINTEROS M.D. 01-Mcd-856896:17 LIPID CHOL 223 mg/dL (Abnormal) Comments: <200 [...] T PROT 7.0 g/dL (Normal) Range: 6.4-8.2 98-Ixj-584767:29 MAMM, UILAT DIAG DIGITAL & CAD Radiology Report See Note (Normal) Comments: Exam Number: [id number] MAMMOGRAM, LEFT UNILATERAL DIAGNOSTIC DIGITAL AND CAD [...] mammograms werealso examined with computer-aided detection software ([employer] Reported By: AUBRIE CROW M.D. :40 MAMM, [place] DIGITAL & CAD Radiology Report See Note (Normal) Comments: Exam Number: [id number] MAMMOGRAM, BILATERAL SCREENING DIGITAL & CAD Full [...] mammograms werealso examined with computer-aided detection software ([employer] Reported By: AUBRIE CROW M.D. 63-Gsy-988661:58 CULTURE, URINE URINE CULTURE See Note {CFU/mL} [...] $$$ >=256 R TRIMETHOPRIM/SULFAMETHOXAZ $$ <=10 S 78-Jjj-837125:58 ROUTINE UA BILIRUBIN URINE SeeNote (Normal) Comments: [...] 0.2 EU/dl (Normal) Range: 0.2 - 1.0 58-Jyi-876366:10 CBC HCT 41.3 % (Normal) Range: 37-47 HGB 14.2 g/dL (Normal) Range: 12.0-16.0 MCH 30.6 pg (Normal) Range: 27.0-32.0 MCHC 34.4 g/dL (Normal) Range: 32-36 MCV 88.9 fL (Normal) Range: 81-99 PLT 325 K/mm3 (Normal) Range: 150-450 RBC 4.65 {M/mm3} (Normal) Range: 4.2-5.4 RDW 13.3 % (Normal) Range: 11.6-14.6 WBC 6.4 K/mm3 (Normal) Range: 4.4-11.0 99-Gso-918485:10 COMP METABOLIC A/G 1.1 {RATIO} (Normal) Range: [...] T PROT 7.6 g/dL (Normal) Range: 6.4-8.2 25-Kln-949439:10 PFLIP CHOL 231 mg/dL (Abnormal) Comments: <200 [...] mg/dL VLDL 20 mg/dL (Normal) Range: 5-40 60-Uyd-937064:10 ROUTINE UA BILIRUBIN URINE SeeNote (Normal) Comments: [...] Indication: Low back pain Planned Observations IRON ([id number])Indication: Anemia On: 62-Uod-918870:06 Request CBC, Platelets & Auto Diff (07333)Indication: Anemia On: 51-Cla-161063:05 Request MICROALBUMIN: CREATININE RATIO (05458) AND (18621)Indication: Benign essential hypertension On: 15-Sbc-400553:03 Request Comments: Jul 2017 URINALYSIS (91452)Indication: Benign essential hypertension On: 13-Cak-529827:03 Request Comments: Jul 2017 TSH (55825)Indication: Benign essential hypertension On: 26-Xps-693087:03 Request Comments: Jul 2017 CBC, Platelets & Auto Diff (18005)Indication: Benign essential hypertension On: :03 Request Comments: Jul 2017 Metabolic Panel, Comprehensive (75070)Indication: Benign essential hypertension On: 37-Mhz-072386:02 Request Comments: Jul 2017 URINALYSIS, W/ MICRO (30501)Indication: Benign essential hypertension On: :22 Request METABOLIC PANEL, COMPREHENSIVE (82186)Indication: Benign essential hypertension On: :22 Request LIPID PANEL (77089)Indication: Benign essential hypertension On: :22 Request CBC with auto diff (69293)Indication: Benign essential hypertension On: :22 Request Blood Glucose , Office (64300)Indication: SYNCOPE, NOS On: :23 Request LIPID PANEL (97716)Indication: Hyperlipidemia On: :37 Request HEPATIC FUNCTION PANEL (11018)Indication: Hyperlipidemia On: :37 Request CALCIFIDIOL (28822) VIT D 25Indication: Osteoporosis On: :50 Request CALCIUM SERUM (23525)Indication: Osteoporosis On: :48 Request TSH (27661)Indication: Osteoporosis On: :48 Request UPEP (22289)Indication: Osteoporosis On: :48 Request SPEP (66331)Indication: Osteoporosis On: :47 Request SED RATE ERYTHROCYTE (35545)Indication: Osteoporosis On: :47 Request PHOSPHORUS (16748)Indication: Osteoporosis On: :47 Request PARATHORMONE (20707)Indication: Osteoporosis On: :47 Request URINALYSIS, W/ MICRO (81459)Indication: Benign essential hypertension On: 03-Sto-147777:00 Request CBC with manual diff (56944)Indication: Benign essential hypertension On: :40 Request Metabolic Panel, Comprehensive (55587)Indication: Hyperkalemia On: :40 Request Lipid Panel (68885)Indication: Hypercholesterolemia On: :40 Request METABOLIC PANEL, COMPREHENSIVE (18447)Indication: Hypercholesterolemia On: :16 Request LIPID PANEL (55859)Indication: Hypercholesterolemia On: :16 Request Comments: in three months (approximately) Metabolic Panel, Basic (87086)Indication: Benign essential hypertension On: 12-Dcr-205214:15 Request Comments: 2 weeks GLUCOSE TOLERANCE TEST (GTT) 5 hour (48827)Indication: SYNCOPE, NOS On: :49 Request Blood Glucose , Office (27382)Indication: SYNCOPE, NOS On: 38-Cbo-138006:47 Request Comments: 92 URINALYSIS W/O MICRO (61260)Indication: Benign essential hypertension On: :35 Request METABOLIC PANEL, COMPREHENSIVE (33698)Indication: Benign essential hypertension On: :35 Request LIPID PANEL (23345)Indication: Benign essential hypertension On: :35 Request CBC WITH MANUAL DIFF (75514)Indication: Benign essential hypertension On: :34 Request MICROALBUMIN: CREATININE RATIO (17260) AND (39869)Indication: Benign essential hypertension On: :08 Request METABOLIC PANEL, COMPREHENSIVE (48655)Indication: Benign essential hypertension On: :08 Request LIPID PANEL (82611)Indication: Benign essential hypertension On: 09-Nds-544246:08 Request CBC WITH MANUAL DIFF (33345)Indication: Benign essential hypertension On: :08 Request CBC (Auto) (36907)Indication: Hypercholesterolemia On: 0-Tic-764135:47 Request Metabolic Panel, Comprehensive (25452)Indication: Hypercholesterolemia On: 3-Mlc-897767:47 Request Lipid Panel (49010)Indication: Hypercholesterolemia On: 2-Ecr-015266:46 Request Comments: in three months (approximately) HEPATIC FUNCTION PANEL (98631)Indication: Hypercholesterolemia On: :21 Request LIPID PANEL (74724)Indication: Hypercholesterolemia On: 36-Dkz-123876:21 Request Comments: in six months Planned Encounters Medical; 6 Month FU - On: 15-Apr-2019 16:15 [facility] Peggy Lott CNP, CNP, Mary E Planned Procedures SCREENING DIGITAL TOMOSYNTHESIS OF On: 15-Oct-2018 Intent BREAST (59488)By: Peggy Lott CNP, CNP, Mary E DRAIN/INJECT, JOINT/BURSA (43640)By: On: 15-Oct-2018 Intent Peggy Lott CNP, CNP, Mary E Radiology - Shoulder - RightBy: On: 10-Sep-2018 Intent Peggy Lott CNP, CNP, Mary E Toradol Injection, 30 mg (J1885)By: On: 27-Feb-2018 Intent Peggy Lott CNP, CNP, Peggy Saldana Toradol Injection, 30 mg (J1885)By: On: 19-Feb-2018 Intent Oren MIHIR Peggy Garciaa DRUM ATTENDANT, Thuy Radiology - Cervical SpineBy: Ciesa On: 19-Feb-2018 Intent Peggy ASH CNP, Peggy Saldana Wax Currettes (13231)By: Slarb NUCLEAR MEDICINE OFFICER, On: 26-Jan-2018 Intent Reyna Ear Irrigation (51255)By: Slarb On: 26-Jan-2018 Intent NUCLEAR MEDICINE OFFICER Reyna PARATHYROID SCAN WITH MIBI AND I-123 On: 14-Jan-2018 Intent (01326)By: Radhaa Peggy ASH CNP, Peggy Saldana Toradol Injection, 30 mg (J1885)By: On: 12-Jan-2018 Intent Oren MIHIR Peggy Garciaa DRUM ATTENDANT, Thuy SCREENING DIGITAL TOMOSYNTHESIS OF On: 06-Sep-2017 Intent BREAST (41003)By: Oren MIHIR Peggy Lott DRUM ATTENDANT, Thuy DEXA SCAN AXIAL SKELETON (86700)By: On: 06-Sep-2017 Intent Oren ASH Peggy Saldana Citoma DRUM ATTENDANT, Thuy Holter Monitor 24 hrsBy: Radhastanley ASH, On: 23-Jun-2017 Intent Peggy Garciaa MIHIR, Thuy ELECTROCARDIOGRAM, COMPLETE (ECG) On: 23-Jun-2017 Intent (04829)By: Radhastanley ASH Peggy Saldana Citoma DRUM ATTENDANT, Thuy ELECTROCARDIOGRAM, COMPLETE (ECG) On: 10-Aug-2016 Intent (12325)By: Oren MIHIR Peggy Saldana Citoma DRUM ATTENDANT, Thuy ELECTROCARDIOGRAM, COMPLETE (ECG) On: 20-Jul-2016 Intent (64349)By: Radhastanley ASH Peggy Garciaa DRUM ATTENDANT, Thuy MAMMOGRAM BREAST BILATERAL SCREENING On: 20-Jul-2016 Intent DIGITAL (07864)By: Radhastanley ASH Peggy Saldana Citoma DRUM ATTENDANT, Thuy INJECTION, PROLIA (J0897)By: Iris On: 16-Oct-2015 Intent Silvana COLLINS Comments: Lot:[id number]:05/14Dose:60mg/mlRoute:sub qSite:l armGiven By:SILAS signed DEXA SCAN AXIAL SKELETON (82890)By: On: 08-Jun-2015 Intent Silvana Simmons MD MAMMOGRAM, SCREENING, BOTH BREAST On: 08-Jun-2015 Intent (16436)By: Silvana Simmons MD Echo CompleteBy: Silvana Simmons MD On: 10-Nov-2014 Intent Holter Monitor 24 hrsBy: Iris COLLINS, On: 10-Nov-2014 Intent Silvana Holder Carotid DopplerBy: Silvana Simmons MD On: 10-Nov-2014 Intent M FLU VAC, SPLIT, >3 YEARS, INTRAMUSC On: 26-Sep-2013 Intent (87439)By: Silvana Simmons MD Comments: Lot #:[id number] date:05.10Amount given:0.5mlRoute: IMSite given:L DltdGiven by: Paige ANAYA and ABN signed IMMUNIZ ADMNIN, 1 VAC, SNGL/COMBO On: 26-Sep-2013 Intent (50064)By: Silvana Simmosn MD EKG (90571)By: PAIGE Rees On: 26-Sep-2013 Intent Eprescribed prescriptions (G8553)By: On: 12-Feb-2013 Intent Long Radha JONES L Ear Irrigation (83873)By: Lucio On: 18-Jan-2013 Intent Jayde JONES Comments: Ear Irrigation performed on: r earAmount/color removed cerumen:brownish moderate amountOUtcome:pt tolerated Used wax curettes Wax CurettesBy: Jayde Valdes LPN On: 18-Jan-2013 Intent Phenergan Injection, up to 50 mg On: 15-Jan-2013 Intent (J2550)By: Peggy Lott CNP Comments: give 25mg IMLot #[id number]-10/2014Site-left hipDose-25mggiven by: Claudia Browne LPN CNP, Mary E IMMUNIZ ADMNIN, 1 VAC, SNGL/COMBO On: 14-Aug-2012 Intent (48348)By: Silvana Simmons MD FLU VAC, SPLIT, >3 YEARS, INTRAMUSC On: 14-Aug-2012 Intent (04310)By: Silvana Simmons MD DXA, BONE DENSITY, AXIAL SKELETON On: 14-Aug-2012 Intent (74351)By: Silvana Simmons MD MAMMOGRAM, SCREENING, BOTH BREASTS On: 14-Aug-2012 Intent (95443)By: Silvana Simmons MD Breast Screening - BilateralBy: On: 09-Jan-2012 Intent Silvana Simmons MD EKG (35273)By: Jayde Valdes LPN On: 31-Oct-2011 Intent Comments: sinus rhythm , borderline T abnormal ant leads MAMMOGRAM, SCREENING, BOTH BREASTS On: 18-Nov-2010 Intent (98859)By: Silvana Simmons MD DXA, BONE DENSITY, AXIAL SKELETON On: 18-Nov-2010 Intent (51417)By: Silvana Simmons MD Wax CurettesBy: PAIGE Rees On: 26-Mar-2010 Intent Ear Irrigation (36629)By: Cabrera, On: 26-Mar-2010 Intent PAIGE SPECIMEN HNDLNG/TRNSPRT, OFFC > LAB On: 24-Nov-2009 Intent (38817)By: PAIGE Rese EEGBy: Citoma Peggy ASH [place] ASH, On: 12-Aug-2009 Intent Peggy Saldana Holter Moniter (50166)By: Ciesa On: 12-Aug-2009 Intent MIHIR Thuy Cige[place]any ASH Thuy CT - Brain/HeadBy: Oren ASH Thuy On: 12-Aug-2009 Intent Oren ASH Tuhy Bio Z (67021)By: Sydneeesa MIHIR Thuy On: 12-Aug-2009 Intent Oren ASH Thuy Echo CompleteBy: Sydneeesa MIHIR Thuy On: 12-Aug-2009 Intent Oren ASH Thuy Cartoid DopplerBy: Oren ASH Thuy On: 12-Aug-2009 Intent Oren ASH Thuy EKG (50725)By: Reanna Becker On: 12-Aug-2009 Intent Radiology - Cervical SpineBy: On: 04-Dec-2008 Intent Silvana Simmons MD Breast Diagnostic - RightBy: Iris On: 17-Nov-2008 Intent Silvana COLLINS Comments: abnormal mammo, 04-04 due for follow up EKG (47912)By: Silvana Simmons MD On: 17-Nov-2008 Intent MAMMOGRAM, SCREENING, BOTH BREASTS On: 27-Aug-2007 Intent (51095)By: Silvana Simmons MD EKG (16434)By: Silvana Simmons MD On: 27-Aug-2007 Intent Clinical Breast Examination On: 12-Jan-2007 Intent (G0101)By: Silvana Simmons MD MAMMOGRAM, SCREENING, BOTH BREASTS On: 12-Jan-2007 Intent (03216)By: Silvana Simmons MD Comments: after 02-15-07 Toradol [...] 12-Jan-2018 Pending Peggy Lott CNP E Ciesa DRUM ATTENDANT, Thuy INJECTION, KETOROLAC TROMETHAMINE, PER 15 MG Ordered: 19-Feb-2018 Pending Ciesa Peggy ASH E Ciesa DRUM ATTENDANT, Thuy INJECTION, KETOROLAC TROMETHAMINE, PER 15 MG Ordered: 27-Feb-2018 Pending Ciesa Peggy ASH E Ciesa DRUM ATTENDANT, Thuy INJECTION, PROLIA Ordered: 16-Oct-2015 Pending Silvana Simmons MD Phenergan 50 MG/ML Injection Solution Ordered: 15-Jan-2013 Pending Ciesa MIHIR Thuy Ciesa DRUM ATTENDANT, Thuy Instructions Name Dates Details Nonsmoker : [...] patient does not have durable power of securities attorney or living will. The patient has [...] 12-Aug-2009 11:58 ssociated with dizziness (was watching grandauGoLive! Mobileter go aroung on a [employer] go round), while the symptoms have not [...] ,emotional problems (depression) ,hypertension and other (hyperlipidemia, [place], low back pain, osteopenia ). Note for [...] [facility] End: 21-Aug-2006 15:45 Payers [place]/Medicare Lilliana Felix; stanley guarantor
--- OUTSIDE RECORDS SUMMARY | 2019-02-15 03:20 | XMS RPT_ITS | Continuity of Care Document ---
:1950 Author Organization [facility] Address [address] [place] [address] Phone Care Team Providers Name Role Phone [...] all vaccines. will get eye exam in [place] pt has appt. 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 It may contain incorrect words, spelling, and punctuation that were not noted in review of the chart prior to signing ED Disposition - P seda for ED Patient: Chief Complaint: Lower Extremity Injury Instructions: ED Sprain Knee Prescriptions: Hydrocodone Bitart/Apap 5-325 [[place] 5MG-325MG] 1 tab PO Q4H PRN PRN [...] your Primary Care Provider. Call [facility] ([phone]) or report to the closest Emergency Room. Call 911 if necessary. 10/25/18 1903 &a mp;#60;Electronically signed by Kristopher Cota MD> Date Kristopher Cota MD Cosigner Signature (If Indicated): Date CC: Peggy Lott NP 25-Oct-2018 Knee 4 or More Views Result: Comments: See Note; NOTES: [facility] Imaging Services [address] [place] [address] Knee 4 or More Views MR#: [id number] Acct: [id number] Name: JOSE RAFAEL FELIX Rep #: [id number] : 1950 F 68 From: Bety Díaz MD PCP: Peggy Lott NP Status: REG ER Study: Knee 4 or More Views Date of Exam: 10/25/18 Exam# [id number] Ordering Dr: Kristopher Cota MD STUDY: X-RAY [...] CC: Peggy Lott NP; Kristopher Cota MD Project Management Advisor: Signed 10-Sep-2018 Shoulder min 2 Views Result: Comments: See Note; NOTES: [facility] Imaging Services [address] [place] [address] Shoulder min 2 Views MR#: [id number] Acct: [id number] Name: JOSE RAFAEL FELIX Rep #: [id number] : 1950 F 67 From: Christian Simeon MD PCP: Peggy Lott NP Status: REG CLI Study: Shoulder min 2 Views Date of Exam: 09/10/18 Exam# [id number] Ordering Dr: Peggy Lott PATTERN CARRIER-C STUDY: X-RAY - RIGHT SHOULDER REASON FOR [...] Service support , CC: Peggy Lott NP Project Management Advisor: Signed 26-Jul-2018 12 Lead Electrocardiogram Result: Comments: See Note; NOTES: [facility] Cardiovascular Services [address] [place] [address] 12 Lead EKG 07/24/18 1737 MR#: [id number] Acct: [id number] Name: JOSE RAFAEL FELIX Rep #: [id number] : 1950 67 From: Calixto Navarro MD [...] progre ssion Confirmed by OZIEL COLLINS, CALIXTO ([id number]), book or script editor BEENA JIN (56) on 07/26/2018 1:39:09 PM Referred By: Ramiro Barney Confirmed By:CALIXTO NAVARRO MD 07/26/18 1339 Date Calixto Navarro MD CC: Peggy Lott NP; Ramiro Barney MD Signed 25-Jul-2018 Emergency Department Summary Result: Comments: See Note; NOTES: [facility] Medical Records Department [address] [place] [address] Emergency Department Summary 07/24/18 1852 MR#: [id number] Acct: [id number] Name: JOSE RAFAEL FELIX Rep #: [id number] : 1950 67 From: Ramiro Barney MD [...] 1. Dehydration. This note was generated with Easy Foodation software. It may contain incorrect words, spelling, [...] blems, contact your Primary Care Provider. Call [employer] [facility] ([phone]) or report to the closest Emergency Room. Call 911 if necessary. 07/25/18 0143 <Electronically signed by Ramiro mejia MD> Date Ramiro Barney MD Cosigner Signature (If Indicated): Date CC: Peggy Lott PATTERN CARRIER 18-Apr-2018 PT D/C Summary (1) Result: Comments: See Note; NOTES: [facility] [address] [place] [address]. [address] [place], [place] [address] Fax REHABILITATION SERVICES DISCHAR GE SUMMARY MR#: [id number] Acct: [id number] Name: JOSE RAFAEL FELIX Rep #: [id number] : 1950 67 From: Danny BOWENT, OCS, [...] strength program to c pknikarlaue at local [facility] Goal Progress: Goal Met Goal 4:: Work without increased pain Goal Progress: Goal Met - Plan Plan: D/C - D/C Information Discharge Comments: Ready to be done 100% better. Will f/u with doctor in May. If there are questions or concerns regarding this patient's physical therapy, please feel free to call me at [phone]. Thank you for the referral of this patient. Sincerely, Les Callahan, DPT, OC <Electronically signed by Danny BOWENT, OCS, CSCS> 04/18/18 0733 CC: Peggy Lott NP EBG Signed 24-Feb-2018 Inital Evaluation (1) - PT Result: Comments: See Note; NOTES: [facility] [address] [place] [address] Fax REHABILITATION SERVICES INITIAL EVALUATION MR#: [id number] Acct: [id number] Name: JOSE RAFAEL FELIX Rep #: [id number] : 1950 67 From: Danny Callahan DPT, OCS, CSCS Referring Dr.: Peggy Lott NP Status: REG RCR Insurance: [facility] MEDICARE PPO SELF PAY INSURANCE Patient's [...] appropriate strength program to cotninue at local [facility] Goal Time Frame: 2-4 Weeks [...] be FAXED BACK to us a t [phone] for Medicare purposes. Please let me know [...] Views Result: Comments: See Note; NOTES: [facility] Imaging Services [address] [facility] [place] [address] Cerv Spine 4 or 5 Views MR#: [id number] Acct: [id number] Name: JOSE RAFAEL FELIX Scarlett Rep #: : 1950 F 67 From: Hayden Fernandes MD PCP: Peggy Lott NP Status: REG CLI Study: Cerv Spine 4 or 5 Views Date of Exam: 02/19/18 Exam# [id number] Ordering Dr: Peggy Lott STUDY: X-RAY - [...] Service support , CC: Peggy Lott NP Project Management Advisor: Signed 24-Jan-2018 Parathyroid Scan Result: Comments: See Note; NOTES: [facility] Imaging Services [address] [place] [address] Parathyroid Scan MR#: [id number] Acct: [id number] Name: JOSE RAFAEL FELIX Rep #: [id number] : 1950 F 67 From: Vern Hendricks DO PCP: Peggy Lott NP Status: REG CLI Study: Parathyroid Scan Date of Exam: 01/24/18 Exam# [id number] Ordering Dr: Peggy Lott CLINICAL: 67-year-old female [...] Service support , CC: Peggy Lott NP Project Management Advisor: Signed 25-Dec-2017 Emergency Department Summary Result: Comments: See Note; NOTES: [facility] Medical Records Department [address] [place] [address] Emergency Department Summary 12/25/17 0838 MR#: [id number] Acct: [id number] Name: JOSE RAFAEL FELIX Rep #: [id number] : 1950 67 From: Ty Mkceon MD PCP: Peggy Lott NP Status: REG ER - ER Visit Summary Date of Service: 12/25/17 Chief Complaint: [] History of Present Illne ss: The patient is a 67 F [] Physical Examination: [] Test Results: [] Emergency Department Course and Treatment: [] Treatment Plan: [] Disposition: [] Impression: [] This note was generated wi [employer]low [employer] dictation software. It may contain incorrect words, [...] your Primary Care Provider. Call [facility] ([phone]) or report to the closest [facility] Room. Call 911 if necessary. 12/25/17 0839 <Electronically signed by Ty Mckeon MD> Date Ty Mckeon MD Cosigner Signature (If I ndicated): Date CC: Peggy Lott NP 25-Dec-2017 Emergency Department Summary Result: Comments: See Note; NOTES: [facility] Medical Records Department [address] [place] [address] Emergency Department Summary 12/25/17 0627 MR#: [id number] Acct: [id number] Name: JOSE RAFAEL FELIX Rep #: [id number] : 1950 67 From: Sue Friedman PCP: [...] pain left-sided] This note was generated with Easy Foodation software. It may contain incorrect words, spelling, [...] your Primary Care Provider. Call [facility] ([phone]) or report to the closest Emergency Room. Call 911 if necessary. 12/25/17 0750 <Electronically signed by Sue Friedman > Date Sue Friedman Cosigner Signature ( If Indicated): Date CC: Peggy Lott PATTERN CARRIER 25-Dec-2017 Emergency Department Summary Result: Comments: See Note; NOTES: [facility] Medical Records Department [address] [place] [address] Emergency Department Summary 12/25/17 0627 MR#: [id number] Acct: [id number] Name: JOSE RAFAEL FELIX Rep #: [id number] : 1950 67 From: Sue Friedman PCP: [...] pain left-sided] This note was generated with Navegg dictation software. It may contain incorrect words, [...] Cont Result: Comments: See Note; NOTES: [facility] Imaging Services [address] [place] [address] Abdomen/Pelvis without Cont MR#: [id number] Acct: [id number] Name: JOSE RAFAEL FELIX Rep # : [id number] : 1950 F 67 From: Tylor Amor MD PCP: Peggy Lott NP Status: REG ER Study: Abdomen/Pelvis without Cont Date of Exam: 12/25/17 Exam# [id number] Ordering Dr: Sue FriedmanU DY: CT ABDOMEN [...] Tylor Amor MD at 8:10 EST Tel [phone], Service support , CC: Peggy Lott PATTERN CARRIER; Sue Friedman Project Management Advisor: Signed 27-Sep-2017 Dexa Bone Density Study (HP) Result: Comments: See Note; NOTES: [facility] Imaging Services [address] [place] [address] Dexa Bone Density Study (HP) MR#: [id number] Acct: [id number] Name: JOSE RAFAEL FELIX Rep #: [id number] : 1950 F 67 From: Tylor Amor MD PCP: Peggy Lott Status: REG CLI Study: Dexa Bone Density Study (HP) Date of Exam: 09/27/17 Exam# [id number] Ordering Dr: Peggy Lott STUD Y: DUAL [...] Tylor Amor MD at 12:36 EDT Tel [phone], Service support , CC: Peggy Lott Project Management Advisor: Signed 27-Sep-2017 SCREENING MAMM (CAD), BILAT Result: Comments: See Note; NOTES: [facility] Imaging Services [address] [place] [address] SCREENING MAMM (CAD), BILAT MR#: [id number] Acct: [id number] Name: JOSE RAFAEL FELIX Rep # : [id number] : 1950 F 67 From: Tylor Amor MD PCP: Peggy Lott Status: REG CLI Study: SCREENING MAMM (CAD), BILAT Date of Exam: 09/27/17 Exam# [id number] Ordering Dr: Peggy Lott MAMMOG EVELYN - [...] biopsy of a clinically suspicious abn ormality. [id number] Electronically Signed: Tylor Amor MD at 13:08 EDT Tel [phone], Service support , CC: Peggy Lott Project Management Advisor: Signed 03-Aug-2016 Bilat Scrn Digital AND CAD Result: Comments: See Note; NOTES: [facility] Imaging Services [address] [place] [address] Verdana 4d Bilat Scrn Digital AND CAD MR#: [id number] Acct: [id number] Name: SHAUNA FELIX Scarlett Rep #: [id number] : 1950 F 65 From: Tylor Amor MD PCP: Silvana Simmons MD Status: REG CLI Study: Bilat Scrn Digital AND CAD Date of Exam: 08/03/16 Exam# [id number] Ordering Dr: Peggy Lott MAMMOGRAPHY - BILATERAL [...] delay biopsy of a clinically suspicious abnormality. [id number] Electronically Signed: Tylor Amor MD 201 05/05/07 at 15:56 EDT Tel [phone], Service support [phone], CC: Peggy Lott; Silvana Simmons MD Project Management Advisor: Signed 26-Jul-2015 Emergency Department Summary Result: Comments: See Note; NOTES: [facility] Medical Records Department [address] [place] [address] Emergency Department Summary MR#: [id number] Acct: [id number] Name: JOSE RAFAEL MILES Rep #: [id number] : 1950 64 From: Ty Mckeon MD [...] C: Erick Eduardo MD T: NTS JOB: [id number] 07/26/15 2321 <Electronically signed by Ty Mckeon MD> Date Ty Mckeon MD Co signer Signature (If Indicated): Date CC: Silvana Simmons MD; Calixto Eduardo MD Date Dictated: 07/26/152258 Date Transcribed: 07/26/152258 Project Management Advisor: Signed 26-Jul-2015 Discharge Instruction Result: Comments: See Note; NOTES: [facility] Medical Records Department [address] [place] [address] Discharge Instruction 07/26/152299 MR#: [id number] Acct: [id number] Name: JOSE RAFAEL FELIX Rep #: [id number] : 1950 64 From: Ty Mckeon MD [...] problems, contact your doctor. Call [facility] ([phone]) or report to the closest Emergency Room. Call 911 if necessary. 07/26/152300 <Electronically signed by Ty Hyde> Date Ty Mckeon MD Cosigner Signature (If Indicated): Date CC: Silvana Simmons MD 30-Jun-2015 Bilat Scrn Digital AND CAD Result: Comments: See Note; NOTES: [facility] Imaging Services [address] [address] Breast Imaging Report MR#: [id number] Acct: [id number] Name: JOSE RAFAEL FELIX Rep #: [id number] : 1950 F 64 From: Tylor Aomr MD PCP: Silvana Simmons MD Status: REG CLI Study: Parisa Herndon Digital AND CAD Date of Exam: 06/30/15 Exam# [id number] Ordering Dr: Obi Simmons MD MAMMOGRAPHY - [...] Tylor anguiano MD at 11:01 EDT Tel [phone], Service support [phone], CC: Silvana Simmons MD Project Management Advisor: Signed 30-Jun-2015 Dexa Bone Density Study (HP) Result: Comments: See Note; NOTES: [facility] Imaging Services [address] [place] [address] Bone Density Report MR#: [id number] Acct: [id number] Name: JOSE RAFAEL FELIX Rep #: [id number] : 1950 F 64 From: Tylor Amor MD PCP: Silvana Simmons MD Status: REG CLI Study: Dexa Bone Density Study (HP) Date of Exam: 06/30/15 Exam# [id number] Ordering Dr: Obi Simmons MD STUDY: DUAL [...] Tylor Amor MD at 15:00 EDT Tel [phone], Service support [phone], CC: Silvana Simmons MD Project Management Advisor: Signed 14-Nov-2014 Echocardiogram Complete Result: Comments: See Note; NOTES: [facility] Cardiovascular Services [address] [place] [address] Echo Complete 11/14/14 1048 MR#: [id number] Acct: [id number] Name: ANTWAN FELIX Scarlett Rep #: [id number] : 1950 64 From: Capo Powell MD Attending Dr: Silvana Simmons MD Status: REG CLI Ordering Dr: Silvana Simmons MD Date: 11/14/14 Location: [facility] Sex: F C Admitted: Aisha hagan This [...] Dictated: 11/14/14 1048 Date Transcribed: 11/14/14 140 Project Management Advisor: Signed 04-Nov-2014 12 Lead Electrocardiogram Result: Comments: See Note; NOTES: [facility] Cardiovascular Services [address] [place] [address] 12 Lead EKG 11/02/14 1128 MR#: [id number] Acct: [id number] Name: VANITA FELIX SUNDAR Pantoja Rep #: [id number] : 1950 64 From: Capo Powell MD [...] ECG Confirmed by VIKKI COLLINS, CAPO ([id number]), book or script editor BEENA JIN (56) on 11/04/2014 10:22:44 AM Referred By: JANET Confirmed B y:CAPO POWELL MD 11/04/14 1022 Date Capo Powell MD CC: Silvana Simmons MD Date Dictated: 11/02/141127 Date Transcribed: 11/02/141127 Project Management Advisor: Signed Family History Unknown Family Member Name [...] kg/m2 Body Surface Area Calculated 1.68 m2 60-Way-318454:26 Temperature 97.9 f Pulse 110 /min Comments: [...] kg/m2 Body Surface Area Calculated 1.65 m2 3-Uxy-509566:24 Temperature 97.4 f Comments: Method: Temporal Pulse [...] kg/m2 Body Surface Area Calculated 1.63 m2 67-Mye-461934:21 Comments: patient did not take b/p medication [...] kg/m2 Body Surface Area Calculated 1.63 m2 72-Sri-269049:21 Pulse 110 /min Comments: Pattern: Regular Respiration [...] 0.00 cm Results Date Description Value Details 6-Pme-578571:56 Rapid Flu (37554 x 2) Comments: neg Influenza A Ag negative (Normal) 6-Jfg-907290:48 Urinalysis, Office (60719) UA - LEUKOCYTE ESTERASE Negative (Normal) UA - NITRITE Negative (Normal) URINE UROBILINGN RONALD TIMED Normal mg/dL (Normal) UA - PROTEIN Negative mg/dL (Normal) UA - PH 6.5 (Normal) UA - BLOOD non-hemolyzed trace (Normal) UA - SPECIFIC GRAVITY 1.015 (Normal) UA - KETONES 5 mg/dL (Abnormal) UA - BILIRUBIN Negative (Normal) UA - GLUCOSE Negative (Normal) 92-Kzo-776532:39 CBC W/Diff, Automated Comments: [facility] [address] [place], [place], [address] Absolute Lymph 1.01 {X10_3/ul} (Normal) Range: 0.83-4.51 [...] 4.2-5.4 WBC 6.0 K/mm3 (Normal) Range: 4.4-11.0 35-Sgf-939620:39 Iron Comments: [facility] [address] [place], [address] IRON 79 ug/dL (Normal) Range: 50-170 03-Uax-866782:35 Basic Metabolic Profile (BMP) Comments: [facility] [address] [place], [address] GAP 8 (Normal) Range: 5-15 CO2 24.0 [...] Comments: Please note revised GLUCOSE reference range lqbtzvhxi24/02/2018. 61-Fgl-296881:35 CBC W/Diff, Automated Comments: [facility] [address] [place], [address] Absolute Lymph 0.62 {X10_3/ul} (Abnormal) Range: 0.83-4.51 [...] CULTURE-IDENTIFICATN Comments: PATIENT NOT FASTINGPERFORMED BY: [facility] Lgnhbg6157 [facility] [id number] Information: SRC: (53075) Antimicrobial MIHEAD (Normal) Comments: S = Susceptible; [...] mL (Abnormal) Urine Final report Culture,Comprehensive (Abnormal) 66-Lpy-687068:56 Urinalysis, Office (33395) UA - LEUKOCYTE ESTERASE Moderate (Normal) UA - NITRITE Positive (Normal) URINE UROBILINGN RONALD TIMED Normal mg/dL (Normal) UA - PROTEIN Negative mg/dL (Normal) UA - PH 6.5 (Normal) UA - BLOOD Non Hemolyzed Moderate (Normal) UA - SPECIFIC GRAVITY 1.020 (Normal) UA - KETONES Negative mg/dL (Normal) UA - BILIRUBIN Negative (Normal) UA - GLUCOSE Negative (Normal) 9-Slw-094118:25 Microscopic Examination Comments: PATIENT WAS FASTINGPERFORMED BY: [employer] [id number] Bacteria Many (Abnormal) Mucus Threads Present (Normal) Cast Type Hyaline casts (Normal) Casts Present {/lpf} (Abnormal) Epithelial Cells (non renal) 0-10 {/hpf} (Normal) Range: 0 - 10 RBC 0-2 {/hpf} (Normal) Range: 0 - 2 WBC >30 {/hpf} (Abnormal) Range: 0 - 5 8-Qph-413229:25 MICROALBUMIN: CREATININE RATIO Comments: PATIENT WAS FASTINGPERFORMED BY: [email or web address] [facility] [id number] (98046) AND (19711) Alb/Creat Ratio 27.0 {mg/g_creat} (Normal) Range: 0.0-30.0 Albumin, Urine 33.5 ug/mL (Normal) Creatinine, Urine 124.3 mg/dL (Normal) 2-Btk-430361:25 URINALYSIS (06775) Comments: PATIENT WAS FASTINGPERFORMED BY: [email or web address] [facility] [id number] Microscopic Examination See below: (Normal) Comments: Microscopic was indicated and was performed. Nitrite, Urine Positive (Abnormal) Urobilinogen,Semi-Qn 0.2 mg/dL (Normal) Range: 0.2-1.0 Bilirubin Negative (Normal) Occult Blood 1+ (Abnormal) Ketones Negative (Normal) Glucose Negative (Normal) Protein Negative (Normal) WBC Esterase 2+ (Abnormal) Appearance Clear (Normal) Urine-Color Yellow (Normal) pH 5.0 (Normal) Range: 5.0-7.5 Specific Mutual 1.020 (Normal) Range: 1.005-1.030 1-Gkn-865249:25 TSH (26614) Comments: PATIENT WAS FASTINGPERFORMED BY: [facility] [id number] TSH 1.210 {uIU/mL} (Normal) Range: 0.450-4.500 3-Yvr-939623:25 Metabolic Panel, Comprehensive Comments: PATIENT WAS FASTINGPERFORMED BY: [facility] [id number] (43013) ALT (SGPT) 14 [iU]/L (Normal) Range: 0-32 [...] 8-27 Glucose 82 mg/dL (Normal) Range: 65-99 0-Jmt-812703:25 CBC & PLATELETS (AUTO) (84916) Comments: PATIENT WAS FASTINGPERFORMED BY: Mobile Location, IP Uhyfij3064 [facility] [id number] Platelets 323 {x10E3/uL} (Normal) Range: 150-379 RDW 14.0 % (Normal) Range: 12.3-15.4 MCHC 34.0 g/dL (Normal) Range: 31.5-35.7 MCH 29.9 pg (Normal) Range: 26.6-33.0 MCV 88 fL (Normal) Range: 79-97 Hematocrit 40.0 % (Normal) Range: 34.0-46.6 Hemoglobin 13.6 g/dL (Normal) Range: 11.1-15.9 RBC 4.55 {x10E6/uL} (Normal) Range: 3.77-5.28 WBC 4.7 {x10E3/uL} (Normal) Range: 3.4-10.8 0-Liq-082248:25 LIPID PANEL (40057) Comments: PATIENT WAS FASTINGPERFORMED BY: [employer]6370 [facility] [id number] LDL/HDL Ratio 1.1 {ratio} (Normal) Range: 0.0-3.2 Comments: LDL/HDL Ratio Men Women 1/2 Avg.Risk 1.0 1.5 Av g.Risk 3.6 3.2 2X Avg.Risk 6.2 5.0 3X Avg.Risk 8.0 6.1 LDL Cholesterol Calc 81 mg/dL (Normal) Range: 0-99 VLDL Cholesterol [place] 16 mg/dL (Normal) Range: 5-40 HDL Cholesterol 72 mg/dL (Normal) Triglycerides 78 mg/dL (Normal) Range: 0-149 Cholesterol, Total 169 mg/dL (Normal) Range: 100-199 7-Cys-721791:13 Urinalysis, Office (44405) UA - LEUKOCYTE ESTERASE Negative (Normal) UA - NITRITE Negative (Normal) URINE UROBILINGN RONALD TIMED Normal mg/dL (Normal) UA - PROTEIN Negative mg/dL (Normal) UA - PH 6 (Abnormal) UA - BLOOD Hemolyzed Small (Normal) UA - SPECIFIC GRAVITY 1.025 (Normal) UA - KETONES Negative mg/dL (Normal) UA - BILIRUBIN Negative (Normal) UA - GLUCOSE Negative (Normal) 40-Yvz-13702:51 CBC & PLATELETS (AUTO) (00885) Comments: PATIENT NOT FASTINGPERFORMED BY: [facility]30 [facility] [id number] Platelets 291 {x10E3/uL} (Normal) Range: 150-379 RDW 13.8 % (Normal) Range: 12.3-15.4 MCHC 33.2 g/dL (Normal) Range: 31.5-35.7 MCH 29.7 pg (Normal) Range: 26.6-33.0 MCV 90 fL (Normal) Range: 79-97 Hematocrit 40.7 % (Normal) Range: 34.0-46.6 Hemoglobin 13.5 g/dL (Normal) Range: 11.1-15.9 RBC 4.54 {x10E6/uL} (Normal) Range: 3.77-5.28 WBC 5.7 {x10E3/uL} (Normal) Range: 3.4-10.8 :51 PARATHORMONE (55993) Comments: PATIENT NOT FASTINGPERFORMED BY: [facility] Usviky4215 [facility] [id number] PTH, Intact 66 pg/mL (Abnormal) Range: 15-65 :00 Urinalysis, Office (90231) UA - LEUKOCYTE ESTERASE Trace (Normal) UA [...] Urinalysis, Complete Comments: How was Urine Obtained? [facility] [address] [place], [place], [id number] MUCUS, URINE 0 SEEN {/hpf} (Normal) BACTERIA [...] (Normal) CLARITY Clear (Normal) COLOR Straw (Normal) 68-Zzs-45540:58 CBC W/Diff, Automated Comments: [facility] [address] [place], [place], [address] Absolute Lymph 1.16 {X10_3/ul} (Normal) Range: 0.83-4.51 [...] 4.2-5.4 WBC 3.2 K/mm3 (Abnormal) Range: 4.4-11.0 32-Eqn-14639:58 Comprehensive Metabolic Profil Comments: [facility] [address] [place], [place], [address] GAP 8 (Normal) Range: 5-15 CO2 28.0 mmol/L (Normal) Range: 21.0-32.0 CL 104 mmol/L (Normal) Range: 98-107 K 4.0 mmol/L (Normal) Range: 3.5-5.1 NA 140 mmol/L (Normal) Range: 136-145 T BILI 0.90 mg/dL (Normal) Range: 0.20-1.00 ALT 25 U/L (Normal) Range: 13-56 Comments: Please note revised ALT reference range zemnpgpui89/28/2018. ALK P 66 U/L (Normal) Range: 45-117 [...] 7-18 GLU 96 mg/dL (Normal) Range: 70-110 81-Cby-59327:58 Lipase Comments: [facility] [address] [place], [place], [address] LIPASE 211 U/L (Normal) Range: 73-393 5-Pmi-688074:30 MICROALBUMIN: CREATININE RATIO Comments: PATIENT NOT FASTINGPERFORMED BY: [facility] [id number] (61738) AND (83106) Microalb/Creat Ratio 3.2 {mg/g_creat} (Normal) Range: 0.0-30.0 Microalbumin, Urine 4.7 ug/mL (Normal) Creatinine, Urine 145.6 mg/dL (Normal) 5-Wwo-695717:30 URINALYSIS (35739) Comments: PATIENT NOT FASTINGPERFORMED BY: [facility]Pjxpjy7986 [facility] [id number] Microscopic Examination MICNIP (Normal) Comments: Microscopic not indicated and not performed. Nitrite, Urine Negative (Normal) Urobilinogen,Semi-Qn 0.2 mg/dL (Normal) Range: 0.2-1.0 Bilirubin Negative (Normal) Occult Blood Negative (Normal) Ketones Trace (Abnormal) Glucose Negative (Normal) Protein Negative (Normal) WBC Esterase Negative (Normal) Appearance Clear (Normal) Urine-Color Yellow (Normal) pH 5.5 (Normal) Range: 5.0-7.5 Specific Mutual 1.022 (Normal) Range: 1.005-1.030 1-Mes-970055:30 TSH (THYROID STIMULATING Comments: PATIENT NOT FASTINGPERFORMED BY: [facility] [id number] HORMONE) (91740) TSH 0.801 {uIU/mL} (Normal) Range: 0.450-4.500 2-Phc-911862:30 CBC, PLATELETS & AUT DIFF Comments: PATIENT NOT FASTINGPERFORMED BY: [facility]6370 [facility] [id number] Information: [id number], 783288 (38042) Immature Grans (Abs) 0.0 {x10E3/uL} (Normal) Range: [...] 3.77-5.28 WBC 5.6 {x10E3/uL} (Normal) Range: 3.4-10.8 1-Lxp-221861:30 METABOLIC PANEL, COMPREHENSIVE Comments: PATIENT NOT FASTINGPERFORMED BY: [facility] Lxldti0129 [facility] [id number] (65947) ALT (SGPT) 14 [iU]/L (Normal) Range: 0-32 [...] Glucose, Serum 96 mg/dL (Normal) Range: 65-99 64-Rrl-321610:37 Lipid Panel (14432) Comments: around April 2017; PATIENT WAS FASTINGPERFORMED BY: ROBERT Buccaneerlin6370 [facility] [id number] LDL/HDL Ratio 1.1 {ratio_units} (Normal) Range: 0.0-3.2 Comments: LDL/HDL Ratio Men Women 1/2 Avg.Risk 1.0 1.5 Av g.Risk 3.6 3.2 2X Avg.Risk 6.2 5.0 3X Avg.Risk 8.0 6.1 LDL Cholesterol Calc 77 mg/dL (Normal) Range: 0-99 VLDL Cholesterol Marysol 23 mg/dL (Normal) Range: 5-40 HDL Cholesterol 72 mg/dL (Normal) Triglycerides 116 mg/dL (Normal) Range: 0-149 Cholesterol, Total 172 mg/dL (Normal) Range: 100-199 16-Lip-867706:37 POTASSIUM SERUM (86180) Comments: Order Date: 02/13/17Order Info: 2823-3 - KOrder Date: 02/13/17Order Info: 2823-3 - [facility] [address] [place], [place], [address] K 4.1 mmol/L (Normal) Range: 3.5-5.1 36-Cvp-475242:20 Microscopic Examination Comments: PATIENT WAS FASTINGPERFORMED BY: Datalink RoadDublin [place] [id number] Bacteria None seen (Normal) Mucus Threads Present (Normal) Epithelial Cells (non renal) 0-10 {/hpf} (Normal) Range: 0 - 10 RBC None seen {/hpf} (Normal) Range: 0 - 2 WBC 0-5 {/hpf} (Normal) Range: 0 - 5 10-Xke-647482:20 METABOLIC PANEL, COMPREHENSIVE Comments: PATIENT WAS FASTINGPERFORMED BY: LabCoMorristown Medical CenterLuepcc4573 [facility] [id number] (09576) ALT (SGPT) 17 [iU]/L (Normal) Range: 0-32 [...] Glucose, Serum 81 mg/dL (Normal) Range: 65-99 10-Ymc-884122:20 URINALYSIS, W/ MICRO (51267) Comments: PATIENT WAS FASTINGPERFORMED BY: Mobile Location, IP Anqmny0997 [facility] [id number] Microscopic Examination See below: (Normal) Comments: Microscopic was indicated and was performed. Microscopic Examination MICRON (Normal) Comments: Microscopic follows if indicated. Nitrite, Urine Negative (Normal) Urobilinogen,Semi-Qn 0.2 mg/dL (Normal) Range: 0.2-1.0 Bilirubin Negative (Normal) Occult Blood Negative (Normal) Ketones Negative (Normal) Glucose Negative (Normal) Protein Negative (Normal) WBC Esterase Negative (Normal) Appearance Clear (Normal) Urine-Color Yellow (Normal) pH 6.5 (Normal) Range: 5.0-7.5 Specific Mutual 1.013 (Normal) Range: 1.005-1.030 :20 CBC with auto diff (08773) Comments: PATIENT WAS FASTINGPERFORMED BY: [employer] Ukqvmu8151 [facility] [id number] Immature Grans (Abs) 0.0 {x10E3/uL} (Normal) Range: [...] 6.1 {x10E3/uL} (Normal) Range: 3.4-10.8 :20 TSH (03355) Comments: PATIENT WAS FASTINGPERFORMED BY: [facility] [place] [address] [id number] TSH 0.689 {uIU/mL} (Normal) Range: 0.450-4.500 :20 MICROALBUMIN: CREATININE RATIO Comments: PATIENT WAS FASTINGPERFORMED BY: [facility] [place] [address] [id number] (06695) AND (68446) Microalb/Creat Ratio <6.5 {mg/g_creat} (Normal) Range: 0.0-30.0 Microalbumin, Urine <3.0 ug/mL (Normal) Creatinine, Urine 46.2 mg/dL (Normal) :40 HEPATIC FUNCTION PANEL Comments: PATIENT WAS FASTINGPERFORMED BY: Mobile Location, IPMorristown Medical CenterNawzvr2152 [facility] [id number] (61693) ALT (SGPT) 38 [iU]/L (Abnormal) Range: 0-32 AST (SGOT) 35 [iU]/L (Normal) Range: 0-40 Alkaline Phosphatase, S 65 [iU]/L (Normal) Range: 39-117 Bilirubin, Direct 0.14 mg/dL (Normal) Range: 0.00-0.40 Bilirubin, Total 0.4 mg/dL (Normal) Range: 0.0-1.2 Albumin, Serum 4.3 g/dL (Normal) Range: 3.6-4.8 Protein, Total, Serum 6.8 g/dL (Normal) Range: 6.0-8.5 :40 LIPID PANEL (14528) Comments: PATIENT WAS FASTINGPERFORMED BY: [facility] [place], [place] [address]marleni [place] [id number] LDL/HDL Ratio 1.2 {ratio_units} (Normal) Range: 0.0-3.2 Comments: LDL/HDL Ratio Men Women 1/2 Avg.Risk 1.0 1.5 Av g.Risk 3.6 3.2 2X Avg.Risk 6.2 5.0 3X Avg.Risk 8.0 6.1 LDL Cholesterol Calc 84 mg/dL (Normal) Range: 0-99 VLDL Cholesterol Marysol 20 mg/dL (Normal) Range: 5-40 HDL Cholesterol 73 mg/dL (Normal) Triglycerides 98 mg/dL (Normal) Range: 0-149 Cholesterol, Total 177 mg/dL (Normal) Range: 100-199 7-Jac-470744:45 Culture, Urine Comments: [facility] [address], [address] CUUR See Note (Normal) Comments: Urine CultureRESULTS [...] >=320 R(NF) indicates non- formulary drug at [facility]. Approval by Infectious Disease Specialist required before non-formulary drugs may be ordered and/or dispensed. 92-Lgo-948528:06 Urinalysis, Office (35856) UA - LEUKOCYTE ESTERASE Trace (Normal) UA - NITRITE Positive (Normal) URINE UROBILINGN RONALD TIMED Normal mg/dL (Normal) UA - PROTEIN Negative mg/dL (Normal) UA - PH 6 (Abnormal) UA - BLOOD Hemolyzed Small (Normal) UA - SPECIFIC GRAVITY 1.025 (Normal) UA - KETONES Negative mg/dL (Normal) UA - BILIRUBIN Negative (Normal) UA - GLUCOSE Negative (Normal) 42-Fah-587946:13 CBC, Platelets & Auto Comments: PATIENT WAS FASTINGPERFORMED BY: Mobile Location, IPMorristown Medical CenterThabag2330 [facility] [id number] Information: [id number] Diff (66082) Immature Grans (Abs) 0.0 {x10E3/uL} (Normal) Range: [...] 3.77-5.28 WBC 7.2 {x10E3/uL} (Normal) Range: 3.4-10.8 59-Xpj-035270:13 TSH (72027) Comments: PATIENT WAS FASTINGPERFORMED BY: Mobile Location, IPMorristown Medical CenterHnqsro7388 [facility] [id number] TSH 0.907 {uIU/mL} (Normal) Range: 0.450-4.500 61-Jvp-098870:13 Lipid Panel (36993) Comments: PATIENT WAS FASTINGPERFORMED BY: [facility]6370 [facility] [id number] LDL/HDL Ratio 2.2 {ratio_units} (Normal) Range: 0.0-3.2 [...] Cholesterol, Total 253 mg/dL (Abnormal) Range: 100-199 57-Uxj-077728:13 Metabolic Panel, Comprehensive Comments: PATIENT WAS FASTINGPERFORMED BY: [facility]6370 [facility] [id number] (92084) ALT (SGPT) 25 [iU]/L (Normal) Range: 0-32 [...] Glucose, Serum 92 mg/dL (Normal) Range: 65-99 98-Nfk-003699:58 URINE EPIFANIO CULTURE-RONALD COL Comments: Forward to Dr Eduardo, Urology, [place], [place]; PATIENT NOT FASTINGPERFORMED BY: [employer] [place] [id number] Information: SRC:URC [id number] COUNT (37084) Result 1 MUG (Normal) Comments: Mixed urogenital flora5,000 Colonies/mL Urine Culture,Comprehensive Final report (Normal) 96-Hlu-402125:55 Urinalysis, Office (33799) UA - GLUCOSE Negative (Normal) UA - BILIRUBIN Negative (Normal) UA - KETONES Negative mg/dL (Normal) UA - SPECIFIC GRAVITY 1.025 (Normal) UA - BLOOD Hemolyzed Trace (Normal) UA - PH 6 (Abnormal) UA - PROTEIN Negative mg/dL (Normal) URINE UROBILINGN RONALD TIMED Normal mg/dL (Normal) UA - NITRITE Negative (Normal) UA - LEUKOCYTE ESTERASE Negative (Normal) 4-Rkp-988413:01 Vitamin D Hydroxy (36004) Comments: PATIENT NOT FASTINGPERFORMED BY: HTP6370 [facility] [id number] Vitamin D, 25-Hydroxy 33.2 ng/mL (Normal) Range: 30.0-100.0 Comments: Vitamin D deficiency has been defined by the [place] of[place]icine and an Endocrine Society practice guideline as alevel of serum 25-OH vitamin D less than 20 ng/mL (1,2).The Endocrine Society went on to further define vitamin Dinsufficiency as a level between 21 and 29 ng/mL (2).1. IOM ([place] of [employer]). 2010. Dietary reference intakes for calcium and D. [place]: The National Academies Press.2. Mica MF, Dami NC, Sheri CHAVEZ, et al. Evaluation, treatment, and prevention of vitamin D deficiency: an Endocrine Society clinical practice guideline. JCEM. 2010; 96(7):1911-30. :01 SPEP (86893) Comments: PATIENT NOT FASTINGPERFORMED BY: WiChor[employer] Pwfavb3683 [facility] [id number] Information: [id number] Please note: SPRCS (Normal) Comments: Protein electrophoresis scan will follow via computer, mail, orcourier delivery. A/G Ratio 1.3 (Normal) Range: 0.7-2.0 Globulin, Total 3.2 g/dL (Normal) Range: 2.0-4.5 M-Faisal Not Observed g/dL (Normal) Gamma Globulin 1.1 g/dL (Normal) Range: 0.5-1.6 Beta Globulin 1.1 g/dL (Normal) Range: 0.6-1.3 Xyxvf-5-Budaezft 0.8 g/dL (Normal) Range: 0.4-1.2 Qzgcx-0-Gykgzrqt 0.3 g/dL (Normal) Range: 0.1-0.4 Albumin 4.2 g/dL (Normal) Range: 3.2-5.6 Protein, Total, Serum 7.4 g/dL (Normal) Range: 6.0-8.5 :01 TSH (41628) Comments: PATIENT NOT FASTINGPERFORMED BY: Mobile Location, IP Gkzjjf6963 [employer] [place] [id number] TSH 0.956 {uIU/mL} (Normal) Range: 0.450-4.500 :01 PARATHORMONE (15307) Comments: PATIENT NOT FASTINGPERFORMED BY: [facility] Sapwds0549 [facility] Health SystemZuga Medicalin [place] [id number] PTH, Intact 53 pg/mL (Normal) Range: 15-65 :01 SED RATE ERYTHROCYTE (54817) Comments: PATIENT NOT FASTINGPERFORMED BY: [facility]6370 [facility] [id number] Sedimentation Rate-Westergren 6 mm/h (Normal) Range: 0-40 :01 ALKALINE PHOSPHATASE (07031) Comments: PATIENT NOT FASTINGPERFORMED BY: [facility]6370 [facility] [id number] Alkaline Phosphatase, S 75 [iU]/L (Normal) Range: 39-117 :01 C-REACTIVE PROTEIN (75746) Comments: PATIENT NOT FASTINGPERFORMED BY: [facility]6370 [facility] [id number] C-Reactive Protein, Quant 1.5 mg/L (Normal) Range: 0.0-4.9 :10 Urinalysis, Complete Comments: Order Date: 07/26/15How was Urine Obtained? CLEAN CATCHTest performed at:[facility] Fwrhfclvdp2932 [facility] [place] [address] MUCUS, URINE 0 SEEN {/hpf} [...] Basic Metabolic Profile (BMP) Comments: Test performed at:[facility] Vlqdebbccc7100 [facility] [place] [address] GAP 6 (Normal) Range: 5-15 [...] Comments: Please note revised CREATININE reference range hxwgysygl65/22/2015. BUN 24 mg/dL (Abnormal) Range: 7-18 GLU 91 mg/dL (Normal) Range: 70-110 82-Mkw-065624:26 CBC W/Diff, Automated Comments: Test performed at:[facility] Ubgvftoclo[address], [place] [address] Absolute Lymph 1.55 {X10_3/ul} (Normal) Range: 0.83-4.51 [...] Panel (7) Comments: PATIENT WAS FASTINGPERFORMED BY: Mobile Location, IPMorristown Medical CenterEufzxn5681 [facility] [id number] ALT (SGPT) 17 [iU]/L (Normal) Range: 0-32 AST (SGOT) 24 [iU]/L (Normal) Range: 0-40 Alkaline Phosphatase, S 63 [iU]/L (Normal) Range: 39-117 Bilirubin, Direct 0.16 mg/dL (Normal) Range: 0.00-0.40 Bilirubin, Total 0.7 mg/dL (Normal) Range: 0.0-1.2 Albumin, Serum 4.6 g/dL (Normal) Range: 3.6-4.8 Protein, Total, Serum 7.2 g/dL (Normal) Range: 6.0-8.5 :19 Lipid Panel With LDL/HDL Comments: PATIENT WAS FASTINGPERFORMED BY: Mobile Location, IPMorristown Medical CenterUokgkz5448 [facility] [id number] Information: [id number] Ratio LDL/HDL Ratio 2.6 {ratio_units} (Normal) Range: [...] Cholesterol, Total 257 mg/dL (Abnormal) Range: 100-199 90-Rjf-022834:14 Culture, Urine Comments: Test performed at:[facility] [address] [place] [address] CUUR See Note (Normal) Comments: [...] $ <=20 S(NF) indicates non-formulary drug at [facility]. Approval by Infectious Disease Specialist required before non- formulary drugs may be ordered and/or dispensed. 00-Imx-952260:14 Urinalysis, Routine (Dipstick) Comments: How was Urine Obtained? CLEAN CATCHTest performed at:[facility] [address] [place] [address] LEUK ESTERASE 100 /ul (Abnormal) OCCULT BLOOD-UR 10 /ul (Abnormal) NITRITE UR Positive (Abnormal) UROBILI Normal mg/dL (Normal) PROT DIPSTX Negative mg/dL (Normal) pH UR 7.0 (Normal) Range: 5.0 - 8.0 SP.GR. DIPSTX 1.010 (Normal) Range: 1.002-1.030 KETONE UR Negative mg/dL (Normal) BILIRUBIN URINE Negative mg/dL (Normal) GLUCOSE, UR Normal mg/dL (Normal) CLARITY Sl. Cloudy (Normal) COLOR Yellow (Normal) 71-Knl-709561:16 URINE EPIFANIO CULTURE (RONALD Comments: PATIENT NOT FASTINGPERFORMED BY: LabCoMorristown Medical CenterKabrbv9507 [facility] [id number] Information: SRC:UR [id number] COL COUNT) (35842) Result 1 CNSNSS (Abnormal) Comments: Coagulase negative [...] S Urine Final report Culture,Comprehens (Abnormal) tito 8-Mzq-336344:25 Culture, Urine Comments: Test performed at:[facility] [address] [place], [place] [address] CUUR See Note (Normal) Comments: Order Date: [...] $ <=20 S(NF) indicates non-formulary drug at [facility]. Approval by Infectious Disease Specialist required before non-formulary drugs may be ordered and/or dispensed. 30-Sxe-20912:24 MICROALBUMIN: CREATININE RATIO Comments: PATIENT WAS FASTINGPERFORMED BY: [facility] Gumcjg9193 [facility] [id number] (66415) AND (88177) Microalb/Creat Ratio 1.3 {mg/g_creat} (Normal) Range: 0.0-30.0 Microalbumin, Urine 1.5 ug/mL (Normal) Range: 0.0-17.0 Creatinine, Urine 118.7 mg/dL (Normal) Range: 15.0-278.0 :24 METABOLIC PANEL, COMPREHENSIVE Comments: PATIENT WAS FASTINGPERFORMED BY: [employer] [id number] (21645) ALT (SGPT) 22 [iU]/L (Normal) Range: 0-32 [...] mg/dL (Normal) Range: 65-99 :24 LIPID PANEL (59703) Comments: PATIENT WAS FASTINGPERFORMED BY: [employer] [place] [id number] LDL/HDL Ratio 2.6 {ratio_units} (Normal) Range: 0.0-3.2 Comment: LDLCOM (Normal) Comments: Possible Familial Hypercholesterolemia. FH should be suspected whenfasting LDL cholesterol is above 189 mg/dL or non-HDL cholesterolis above 219 mg/dL. A family history of high cholesterol and heartdise ase in 1st degree relatives should be collected. J Clin Lcemuno1793;5:133-140 LDL Cholesterol Calc 206 mg/dL (Abnormal) Range: 0-99 VLDL Cholesterol Marysol 16 mg/dL (Normal) Range: 5-40 HDL Cholesterol 79 mg/dL (Normal) Comments: According to ATP-III Guidelines, HDL-C >59 mg/dL is considered anegative risk factor for CHD. Triglycerides 82 mg/dL (Normal) Range: 0-149 Cholesterol, Total 301 mg/dL (Abnormal) Range: 100-199 90-Ofs-12974:24 CBC WITH MANUAL DIFF Comments: PATIENT WAS FASTINGPERFORMED BY: [facility] Msbbeo8414 [facility] [id number] Information: [id number] (39452) Immature Grans (Abs) 0.0 {x10E3/uL} (Normal) Range: [...] 3.77-5.28 WBC 4.8 {x10E3/uL} (Normal) Range: 3.4-10.8 6-Zgb-174009:31 BILAT SCRN DIGITAL & CAD Radiology Report [...] Amor M.D.January 31, 2013 at 1:16:07 PM [id number] Signed GP/GP If you are the referring physician and wou ld like to consult with theradiologist who provided this interpretation, please contact Yan Enriquez at [phone]. If this radiologist is unavailable, youwill be directed to another radiol ogist to assist. If you are a patient with a question regarding this report, pleasecontactyour referring physician directly. Professional Interpretation Provided By: Fatimah, Phone ,Fa x [phone] These documents contain legally protected and confidential [...] 01/31/13 1326 Sign by: Tylor Amor MD 0-Rdl-795805:31 DEXA BONE DENSITY STUDY (HP) Radiology Report [...] is considered osteopenic, as outlined above, according toWstate mental health facilityHealth Organization ([facility]) criteria. Fracture risk is [...] Amor M.D.January 31, 2013 at 1:13:05 PM [id number] Signed GP/GP If you are the referring ph ysician and would like to consult with theradiologist who provided this interpretation, please contact Yan Enriquez at [phone]. If this radiologist is unavailable, youwill be directed to another radiologist to assist. If you are a patient with a question regarding this report, pleasecontactyour referring physician directly. Professional Interpretation Provided By: [employer], Phone , These documents contain legally protected [...] 01/31/13 1318 Sign by: Tylor Amor MD 62-Ekl-35787:51 LIPID PANEL (05544) Comments: PATIENT WAS FASTINGPERFORMED BY: [facility]6370 [facility] [id number] Information: [id number] LDL Cholesterol Calc 162 mg/dL (Abnormal) Range: 0-99 LDL/HDL Ratio 2.7 {ratio_units} (Normal) Range: 0.0-3.2 VLDL Cholesterol Marysol 24 mg/dL (Normal) Range: 5-40 HDL Cholesterol 61 mg/dL (Normal) Comments: According to ATP-III Guidelines, HDL-C >59 mg/dL is considered anegative risk factor for CHD. Triglycerides 122 mg/dL (Normal) Range: 0-149 Cholesterol, Total 247 mg/dL (Abnormal) Range: 100-199 55-Tfh-766977:18 Microscopic Examination Comments: PATIENT WAS FASTINGPERFORMED BY: [facility]6370 [facility] [id number] Bacteria None seen (Normal) Epithelial Cells (non renal) 0-10 {/hpf} (Normal) Range: 0 - 10 RBC 0-3 {/hpf} (Normal) Range: 0 - 3 WBC 0-5 {/hpf} (Normal) Range: 0 - 5 20-Osp-153372:18 METABOLIC PANEL, COMPREHENSIVE Comments: PATIENT WAS FASTINGPERFORMED BY: [facility]6370 [facility] [id number] (23952) ALT (SGPT) 16 [iU]/L (Normal) Range: 0-40 [...] (Normal) Range: 65-99 :18 URINALYSIS, W/ MICRO (73021) Comments: PATIENT WAS FASTINGPERFORMED BY: [facility]6370 [facility] [id number] Microscopic Examination See below: (Normal) Microscopic Examination MICRON (Normal) Comments: Microscopic follows if indicated. Nitrite, Urine Negative (Normal) Urobilinogen,Semi-Qn 0.2 mg/dL (Normal) Range: 0.0-1.9 Bilirubin Negative (Normal) Occult Blood Negative (Normal) Ketones Negative (Normal) Glucose Negative (Normal) Protein Negative (Normal) WBC Esterase Negative (Normal) Appearance Clear (Normal) Urine-Color Yellow (Normal) pH 5.5 (Normal) Range: 5.0-7.5 Specific Mutual 1.018 (Normal) Range: 1.005-1.030 46-Uqm-344669:18 LIPID PANEL (07550) Comments: PATIENT WAS FASTINGPERFORMED BY: [facility]6370 [facility] [id number] LDL/HDL Ratio 2.8 {ratio_units} (Normal) Range: 0.0-3.2 [...] MANUAL DIFF Comments: PATIENT WAS FASTINGPERFORMED BY: [facility]6370 [facility] [id number] Information: [id number] (74667) Immature Grans (Abs) 0.0 {x10E3/uL} (Normal) Range: [...] 3.77-5.28 WBC 4.4 {x10E3/uL} (Normal) Range: 4.0-10.5 51-Zzn-04696:52 Lipid Panel (77615) Comments: PATIENT WAS FASTINGPERFORMED BY: LabCoMorristown Medical CenterCapfcj5809 [facility] [id number] Information: [id number] LDL/HDL Ratio 2.2 {ratio_units} (Normal) Range: 0.0-3.2 LDL Cholesterol Calc 146 mg/dL (Abnormal) Range: 0-99 VLDL Cholesterol Marysol 23 mg/dL (Normal) Range: 5-40 HDL Cholesterol 67 mg/dL (Normal) Comments: According to ATP-III Guidelines, HDL-C >59 mg/dL is considered anegative risk factor for CHD. Triglycerides 115 mg/dL (Normal) Range: 0-149 Cholesterol, Total 236 mg/dL (Abnormal) Range: 100-199 86-Ixj-974937:32 BILAT SCRN DIGITAL & CAD Radiology Report [...] radiologist regarding this report, please call our 56Y3bqvlbnr line @ Dictated on 01/18/12 1254 by Yordy Amor MDranscribed on 01/18/121456 by ITS IMPORTSign by Tylor Silverio MD on 01/18/121457 Sign by: Tylor Amor MD 98-Kec-903064:12 POTASSIUM SERUM (39280) Comments: PATIENT NOT FASTINGPERFORMED BY: [facility] Ekgwei2404 [facility] [id number] Information: [id number] Potassium, Serum 5.2 mmol/L (Normal) Range: 3.5-5.2 58-Wbs-40552:15 CBCD,SMEAR DIFF RED CELL MORPH SeeNote {NORMAL} [...] Serum 9.8 mg/dL (Normal) Comments: PERFORMED BY: [email or web address] [facility] [id number] 59 Range: 8.6-10.2 : Phosphorus, Serum 3.6 mg/dL (Normal) Comments: PERFORMED BY: [employer] [facility] [id number] 59 Range: 2.5-4.5 :59 Protein Electro, Random Urine Comments: PERFORMED BY: [employer] Xzeksl6933 [facility] [id number] Please note: SPRCS (Normal) Comments: Protein electrophoresis scan will follow via computer, mail, orcourier delivery. Gamma Globulin, U 19.1 % (Normal) M-Faisal, % Not Observed % (Normal) Beta Globulin, U 32.4 % (Normal) Rdfql-1-Odxxkfjz, U 20.5 % (Normal) Zbjdt-1-Zhoerztz, U 4.1 % (Normal) Albumin, U 23.9 % (Normal) Protein,Total,Urine 6.5 mg/dL (Normal) Range: 0.0-15.0 99-Jur-407802:59 Protein Electro.,S Comments: PERFORMED BY: ROBERT Mobile Location, IP Gumiyo [facility] [id number] Please note: SPRCS (Normal) Comments: Protein electrophoresis scan will follow via computer, mail, orcourier delivery. A/G Ratio 1.2 (Normal) Range: 0.7-2.0 Globulin, Total 3.2 g/dL (Normal) Range: 2.0-4.5 M-Faisal Not Observed g/dL (Normal) Sjyap-7-Zhmzrwqv 0.2 g/dL (Normal) Range: 0.1-0.4 Untbq-2-Dudztoqd 0.8 g/dL (Normal) Range: 0.4-1.2 Beta Globulin 1.1 g/dL (Normal) Range: 0.6-1.3 Gamma Globulin 1.1 g/dL (Normal) Range: 0.5-1.6 Albumin 3.9 g/dL (Normal) Range: 3.2-5.6 Protein, Total, Serum 7.1 g/dL (Normal) Range: 6.0-8.5 PTH, Intact 27 pg/mL (Normal) Comments: PERFORMED BY: [employer] [facility] [id number] 5:59 Range: 15-65 Sedimentation 5 mm/h (Normal) Comments: PERFORMED BY: [employer] [facility] [id number] 5:59 Rate-Westergren Range: 0-30 TSH 1.050 {uIU/mL} Comments: PERFORMED BY: [employer] [facility] SystemZuga MedicalAt[facility] Health [id number] 5:59 (Normal) Range: 0.450-4.500 Vitamin D, 25-Hydroxy 39.3 ng/mL Comments: PERFORMED BY: Mobile Location, IP [employer] [facility] [id number] 5:59 (Normal) Range: 32.0-100.0 Comments: Recent studies consider the lower limit of 32.0 ng/mL to be athreshold for optimal health.Shultz DELANO. J Nutr. 2004;135(2):317-22. 5-Lbj-531654:55 BILAT SCRN DIGITAL & CAD Radiology Report [...] be sent to the patient by the [facility] within 30 days. Approximately 10% of breast cancers are not detected by mammography. Anormal mammogram should not delay biopsy of a clinically suspiciousabnormality. Dictated on 12/30/10 1348 Yordy Ortizranscribed on 01/05/11 1047 by ITS IMPORTSign by Tylor Amor on 01/05/11 1048 Sign by: Tylor Amor 0-Jzr-448677:54 DEXA BONE DENSITY STUDY (HP) Radiology Report See Note (Normal) Comments: CLINICAL:Female, 60 years old. The patient is postmenopausal. EXAMINATION:DUAL ENERGY X-RAY ABSORPTIOMETRY / DEXA. TECHNIQUE:Bone Mineral Density (BMD) measurements of lumbar spine and bila teralhipswer e obtained using a [employer] scanner.. COMPARISON:Comparison is made with prior study [...] on 12/30/10 1407 Sign by: Tylor Amor 3-Bxc-655563:03 METABOLIC PANEL, COMPREHENSIVE Comments: PATIENT WAS FASTINGPERFORMED BY: LabCoMorristown Medical CenterQlypjx5466 [facility] [id number] (50560) ALT (SGPT) 17 [iU]/L (Normal) Range: 0-40 [...] Glucose, Serum 97 mg/dL (Normal) Range: 65-99 8-Hqa-688999:03 LIPID PANEL (52317) Comments: PATIENT WAS FASTINGPERFORMED BY: LabCoMorristown Medical CenterBiweff4728 [facility] [id number] LDL Cholesterol Calc 176 mg/dL (Abnormal) Range: 0-99 LDL/HDL Ratio 2.7 {ratio_units} (Normal) Range: 0.0-3.2 VLDL Cholesterol Marysol 31 mg/dL (Normal) Range: 5-40 Cholesterol, Total 272 mg/dL (Abnormal) Range: 100-199 HDL Cholesterol 65 mg/dL (Normal) Comments: According to ATP-III Guidelines, HDL-C >59 mg/dL is considered anegative risk factor for CHD. Triglycerides 157 mg/dL (Abnormal) Range: 0-149 2-Nwr-053687:03 CBC WITH MANUAL DIFF Comments: PATIENT WAS FASTINGPERFORMED BY: LabCoMorristown Medical CenterBjldci7428 [facility] [id number] Information: [id number] (05052) Baso (Absolute) 0.1 {x10E3/uL} (Normal) Range: 0.0-0.2 [...] PANEL, COMPREHENSIVE Comments: PATIENT WAS FASTINGPERFORMED BY: [facility]Br[facility]6370 [facility] [id number] (02522) ALT (SGPT) 23 [iU]/L (Normal) Range: 0-40 [...] mg/dL (Normal) Range: 65-99 :38 LIPID PANEL (51770) Comments: PATIENT WAS FASTINGPERFORMED BY: [employer] [facility] [id number] LDL Cholesterol Calc 143 mg/dL (Abnormal) Range: [...] three months (approximately); PATIENT WAS FASTINGPERFORMED BY: [employer]6[address] [facility] [id number] Information: ADD [id number] AND DRAW FEE 99 [id number] (20220) Baso (Absolute) 0.0 {x10E3/uL} (Normal) Range: 0.0-0.2 [...] 3.80-5.10 WBC 4.4 {x10E3/uL} (Normal) Range: 4.0-10.5 41-Pey-613939:03 BMP BUN/CRE 24.4 {RATIO} (Abnormal) Range: 10-20 [...] (Normal) GLU 91 mg/dL (Normal) Range: 70-110 49-Edr-49183:00 EPIFANIO CULTURE-OTHER (60856) Comments: PATIENT NOT FASTINGPERFORMED BY: [facility] CenterVgybwo1109 [facility] [id number] Information: SRC: THROAT Result 1 RRF (Normal) Comments: Routine respiratory michelle Upper Respiratory Culture Final report (Normal) 07-Pba-163733:43 Rapid Strep Test, Office (22701) Rapid Strep Test, Office Negative (Normal) 07-Xhf-90416:35 CBCD,SMEAR DIFF CELLS COUNTED 100 (Normal) EOS [...] Report See Note (Normal) Comments: Exam Number: [id number] CLINICAL:Syncope and CT BRAIN WITH AND WITHOUT [...] There is no rmal enhancement of the sam[place] of [place], without a demonstrated aneurysm. Normal [...] GLU 5 HR GLU GTT-5 HOUR from 0922:P42733L. 37 Range: 70-110 : GLU GTT-4 HOUR <TEST NOT PERFORMED> Comments: 5HR GTT GLU 4 HR GLU GTT-4 HOUR from 921:C41156Z. 45 mg/dL (Normal) Range: 70-110 : GLU GTT-3 HOUR 78 mg/dL (Normal) Comments: 5HR GTT GLU 3 HR GLU GTT-3 HOUR from 921:U06841D. 40 Range: 70-110 : GLU GTT-2 HOUR 134 mg/dL (Abnormal) Comments: 5HR GTT GLU 2 HR GLU GTT-2 HOUR from 921:P99625E. 40 Range: 70-120 :4 GLU GTT-1 HOUR 155 mg/dL (Normal) Comments: 5HR GTT GLU 1 HR GLU GTT-1 HOUR from 921:A69980Z. 0 Range: 120-170 :0 GLU GTT-30 min. 180 mg/dL (Abnormal) Comments: 5HR GTT GLU 1/2 HR GLU GTT-30 min. from 921:X66933V. 8 Range: 110-170 Comments: SPECIMEN GROSSLY HEMOLYZED :3 GLU GTT-FASTING 104 mg/dL (Normal) Comments: 5HR GTT FASTING GLU GTT-FASTING from 921:G52324R. 5 Range: 70-110 Comments: GLUCOSE TOLERANCE TEST Reference Interval Non- Adults Fasting 70 - 110 30 minutes 110 - 170 1 hour 120 - 170 2 hour 70 - 120 3 hour 70 - 110 4 hour 70 - 110 5 hour 70 - 110 :3 BEDSIDE GLU 97 mg/dL (Normal) Range: 70-110 3 Comments: Policy and Physicians Orders followed 68-Jgo-971151:47 Urinalysis, Office (89784) UA - BILIRUBIN Small (Normal) UA - [...] Report See Note (Normal) Comments: Exam Number: [id number] MAMMOGRAM, UNILATERAL RIGHT DIAGNOSTIC DIGITAL AND CAD [...] werealso e xamined with computer-aided detection software ([email or web address], [employer] Reported By: AUBRIE CROW M.D. 99-Vbo-730959:19 ABDOMEN W/WO IV CONTRAST Radiology Report See Note (Normal) Comments: Exam Number: [id number] CLINICAL:Liver lesion CT ABDOMEN WITH AND WITHOUT [...] sponge kidneys. Reported By: GREGG GLEZ M.D. 04-Ixq-52191:28 SERUM CRE & GFR Comments: CALL RESULTS TO [phone] CREAT,SERUM 0.8 mg/dL (Normal) Range: 0.6-1.0 EST GFR 78 mL/min (Normal) EST GFR - AA 95 mL/min (Normal) :29 CERV SPINE,MIN 4 VIEWS Radiology Report See Note (Normal) Comments: Exam Number: [id number] CERVICAL SPINE SERIES, MULTIPLE VIEWS INCLUDING BILATERAL [...] spine series. Reported By: EMMA JETT M.D. 5-Yft-901813:16 [facility] DIAG DIGITAL & CAD Radiology Report See Note (Normal) Comments: Exam Number: [id number] MAMMOGRAM, UNILATERAL RIGHT DIAGNOSTIC DIGITAL AND CAD [...] mammograms werealso examined with computer-aided detection software ([employer].). Reported By: AUBRIE CROW M.D. 32-Uld-731250:46 [facility] Rad[facility] Report See Note (Normal) Comments: Exam Number: [id number] BILATERAL SCREENING MAMMOGRAPHY HISTORYRoutine screening. COMPARISONComparison is [...] Elsewhere no suspiciouscluster of calcification, area of microstrategy architect ural distortion, orthree-dimensional spiculated masses. IMPRESSION1. [...] mammogramswere also examined with computer- aided detection software([employer] Reported By: CASSIE QUINTEROS M.D. 58-Twy-649452:17 LIPID CHOL 223 mg/dL (Abnormal) Comments: <200 [...] mg/dL VLDL 19 mg/dL (Normal) Range: 5-40 78-Sgd-361914:17 LIVER ALB 3.5 g/dL (Normal) Range: 3.4-5.0 [...] Report See Note (Normal) Comments: Exam Number: [id number] MAMMOGRAM, LEFT UNILATERAL DIAGNOSTIC DIGITAL AND CAD [...] mammograms werealso examined with computer-aided detection software ([employer], [employer], [employer].). Reported By: AUBRIE CROW M.D. :40 MAMM, BILAT SCRN DIGITAL & CAD Radiology Report See Note (Normal) Comments: Exam Number: [id number] MAMMOGRAM, BILATERAL SCREENING DIGITAL & CAD Full [...] mammograms werealso examined with computer-aided detection software ([employer], [employer], [employer].). Reported By: AUBRIE CROW M.D. :58 CULTURE, [...] $$$ >=256 R TRIMETHOPRIM/SULFAMETHOXAZ $$ <=10 S 37-Ncq-776972:58 ROUTINE UA BILIRUBIN URINE SeeNote (Normal) Comments: [...] 0.2 EU/dl (Normal) Range: 0.2 - 1.0 70-Rpo-793096:10 CBC HCT 41.3 % (Normal) Range: 37-47 [...] T PROT 7.6 g/dL (Normal) Range: 6.4-8.2 61-Oad-865617:10 PFLIP CHOL 231 mg/dL (Abnormal) Comments: <200 [...] mg/dL VLDL 20 mg/dL (Normal) Range: 5-40 48-Qxr-265113:10 ROUTINE UA BILIRUBIN URINE SeeNote (Normal) Comments: [...] Observations URINE EPIFANIO CULTURE (RONALD COL COUNT) (87368)Indication: Urinary frequency On: 8-Kcd-203096:36 Request IRON ([id number])Indication: Anemia On: 61-Ygz-712337:06 Request CBC, Platelets & Auto Diff (82402)Indication: Anemia On: 49-Zhy-103428:05 Request MICROALBUMIN: CREATININE RATIO (31188) AND (43406)Indication: Benign essential hypertension On: :03 Request Comments: Jul 2017 URINALYSIS (04700)Indication: Benign essential hypertension On: :03 Request Comments: Jul 2017 TSH (98400)Indication: Benign essential hypertension On: :03 Request Comments: Jul 2017 CBC, Platelets & Auto Diff (02450)Indication: Benign essential hypertension On: :03 Request Comments: Jul 2017 Metabolic Panel, Comprehensive (93649)Indication: Benign essential hypertension On: :02 Request Comments: Jul 2017 URINALYSIS, W/ MICRO (10849)Indication: Benign essential hypertension On: :22 Request METABOLIC PANEL, COMPREHENSIVE (32105)Indication: Benign essential hypertension On: :22 Request LIPID PANEL (89038)Indication: Benign essential hypertension On: :22 Request CBC with auto diff (30270)Indication: Benign essential hypertension On: :22 Request Blood Glucose , Office (61058)Indication: SYNCOPE, NOS On: 52-Ulo-691566:23 Request LIPID PANEL (92379)Indication: Hyperlipidemia On: 28-Rdw-876466:37 Request HEPATIC FUNCTION PANEL (57316)Indication: Hyperlipidemia On: 11-Gzs-905703:37 Request CALCIFIDIOL (07726) VIT D 25Indication: Osteoporosis On: :50 Request CALCIUM SERUM (27578)Indication: Osteoporosis On: :48 Request TSH (97099)Indication: Osteoporosis On: :48 Request UPEP (30172)Indication: Osteoporosis On: :48 Request SPEP (12245)Indication: Osteoporosis On: :47 Request SED RATE ERYTHROCYTE (05679)Indication: Osteoporosis On: :47 Request PHOSPHORUS (25725)Indication: Osteoporosis On: :47 Request PARATHORMONE (22900)Indication: Osteoporosis On: :47 Request URINALYSIS, W/ MICRO (39200)Indication: Benign essential hypertension On: 80-Kcj-973368:00 Request CBC with manual diff (38528)Indication: Benign essential hypertension On: :40 Request Metabolic Panel, Comprehensive (56196)Indication: Hyperkalemia On: :40 Request Lipid Panel (03577)Indication: Hypercholesterolemia On: :40 Request METABOLIC PANEL, COMPREHENSIVE (05241)Indication: Hypercholesterolemia On: :16 Request LIPID PANEL (74034)Indication: Hypercholesterolemia On: 11-Vpf-226654:16 Request Comments: in three months (approximately) Metabolic Panel, Basic (10743)Indication: Benign essential hypertension On: 23-Sdj-319121:15 Request Comments: 2 weeks GLUCOSE TOLERANCE TEST (GTT) 5 hour (82139)Indication: SYNCOPE, NOS On: 43-Tvi-484857:49 Request Blood Glucose , Office (60737)Indication: SYNCOPE, NOS On: 99-Kqn-681181:47 Request Comments: 92 URINALYSIS W/O MICRO (57234)Indication: Benign essential hypertension On: 53-Nqb-727263:35 Request METABOLIC PANEL, COMPREHENSIVE (55767)Indication: Benign essential hypertension On: 20-Ktk-421945:35 Request LIPID PANEL (02282)Indication: Benign essential hypertension On: 94-Zsy-168577:35 Request CBC WITH MANUAL DIFF (98378)Indication: Benign essential hypertension On: 51-Tur-171846:34 Request MICROALBUMIN: CREATININE RATIO (19015) AND (12039)Indication: Benign essential hypertension On: 15-Src-005588:08 Request METABOLIC PANEL, COMPREHENSIVE (70484)Indication: Benign essential hypertension On: 48-Ptq-047362:08 Request LIPID PANEL (15481)Indication: Benign essential hypertension On: 82-Xdv-668475:08 Request CBC WITH MANUAL DIFF (70930)Indication: Benign essential hypertension On: 48-Mek-145916:08 Request CBC (Auto) (62630)Indication: Hypercholesterolemia On: :47 Request Metabolic Panel, Comprehensive (38830)Indication: Hypercholesterolemia On: :47 Request Lipid Panel (98416)Indication: Hypercholesterolemia On: 8-Prg-045418:46 Request Comments: in three months (approximately) HEPATIC FUNCTION PANEL (58486)Indication: Hypercholesterolemia On: :21 Request LIPID PANEL (60423)Indication: Hypercholesterolemia On: 86-Gvl-643720:21 Request Comments: in six months Planned Encounters Medical; 6 Month FU - On: 15-Apr-2019 16:15 [facility] Peggy Lott CNP, CNP, Mary E Planned Procedures SCREENING DIGITAL TOMOSYNTHESIS OF On: 15-Oct-2018 Intent BREAST (86439)By: Oren ASH ThuyLes Lott CNP Thuy DRAIN/INJECT, JOINT/BURSA (58667)By: On: 15-Oct-2018 Intent Oren ASH ThuyPeggy Horta CNP Radiology - Shoulder - RightBy: On: 10-Sep-2018 Intent Oren ASH ThuyLes Lott CNP Thuy Toradol Injection, 30 mg (J1885)By: On: 27-Feb-2018 Intent Oren ASH ThuyLes Lott CNP Thuy Toradol Injection, 30 mg (J1885)By: On: 19-Feb-2018 Intent Oren AHS ThuyLes Lott CNP Thuy Radiology - Cervical SpineBy: Ciesa On: 19-Feb-2018 Intent MIHIR ThuyLes Lott CNP Thuy Wax Currettes (93290)By: 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, On: 26-Jan-2018 Intent Reyna Ear Irrigation (62172)By: Slarb On: 26-Jan-2018 Intent OSTRICH FARMER, Reyna PARATHYROID SCAN WITH MIBI AND I-123 On: 14-Jan-2018 Intent (25781)By: Oren ASH Peggy Lott CNP, Peggy Saldana Toradol Injection, 30 mg (J1885)By: On: 12-Jan-2018 Intent Oren ASH, Peggy Lott CNP, Thuy SCREENING DIGITAL TOMOSYNTHESIS OF On: 06-Sep-2017 Intent BREAST (43285)By: Oren ASH, Peggy Garciaa MIHIR, Thuy DEXA SCAN AXIAL SKELETON (42374)By: On: 06-Sep-2017 Intent Oren ASH, Peggy Lott CNP, Thuy Holter Monitor 24 hrsBy: Radhastanley ASH, On: 23-Jun-2017 Intent Peggy Lott CNP, Thuy ELECTROCARDIOGRAM, COMPLETE (ECG) On: 23-Jun-2017 Intent (31333)By: Oren ASH Peggy Lott CNP, Thuy ELECTROCARDIOGRAM, COMPLETE (ECG) On: 10-Aug-2016 Intent (47416)By: Oren ASH, Peggy Lott CNP, Thuy ELECTROCARDIOGRAM, COMPLETE (ECG) On: 20-Jul-2016 Intent (98096)By: Peggy Lott CNP, CNP, Thuy MAMMOGRAM BREAST BILATERAL SCREENING On: 20-Jul-2016 Intent DIGITAL (85094)By: Oren ASH Peggy Lott CNP, Peggy Saldana INJECTION, PROLIA (J0897)By: Iris On: 16-Oct-2015 Intent Silvana COLLINS Comments: Lot:[id number]:05/14Dose:60mg/mlRoute:sub qSite:l armGiven By:JKMVIS signed DEXA SCAN AXIAL SKELETON (34613)By: On: 08-Jun-2015 Intent Silvana Simmons MD MAMMOGRAM, SCREENING, BOTH BREAST On: 08-Jun-2015 Intent (88359)By: Silvana Simmons MD Echo CompleteBy: Silvana Simmons MD On: 10-Nov-2014 Intent Holter Monitor 24 hrsBy: Iris COLLINS, On: 10-Nov-2014 Intent Silvana Holder Carotid DopplerBy: Silvana Simmons MD On: 10-Nov-2014 Intent M FLU VAC, SPLIT, >3 YEARS, INTRAMUSC On: 26-Sep-2013 Intent (77360)By: Silvana Simmons MD Comments: Lot #:[id number] date:05.10Amount given:0.5mlRoute: IMSite given:L DltdGiven by: Paige ANAYA and ABN signed IMMUNIZ ADMNIN, 1 VAC, SNGL/COMBO On: 26-Sep-2013 Intent (48279)By: Silvana Simmons MD EKG (61380)By: PAIGE Rees On: 26-Sep-2013 Intent Eprescribed prescriptions (G8553)By: On: 12-Feb-2013 Intent Radha Corrales LPN Ear Irrigation (76824)By: Lucio On: 18-Jan-2013 Intent Jayde JONES Comments: Ear Irrigation performed on: r earAmount/color removed cerumen:brownish moderate amountOUtcome:pt tolerated Used wax curettes Wax CurettesBy: Jayde Valdes LPN On: 18-Jan-2013 Intent Phenergan Injection, up to 50 mg On: 15-Jan-2013 Intent (J2550)By: Oren ASH, Peggy Lott Comments: give 25mg IMLot #[id number]-92/2014Site-left hipDose-25mggiven by: Claudia Browne LPN CNP, Mary E IMMUNIZ ADMNIN, 1 VAC, SNGL/COMBO On: 14-Aug-2012 Intent (37822)By: Silvana Simmons MD FLU VAC, SPLIT, >3 YEARS, INTRAMUSC On: 14-Aug-2012 Intent (30498)By: Silvana Simmons MD DXA, BONE DENSITY, AXIAL SKELETON On: 14-Aug-2012 Intent (80951)By: Silvana Simmons MD MAMMOGRAM, SCREENING, BOTH BREASTS On: 14-Aug-2012 Intent (24487)By: iSlvana Simmons MD Breast Screening - BilateralBy: On: 09-Jan-2012 Intent Silvana Simmons MD EKG (77961)By: Kem Valdes LPNsie On: 31-Oct-2011 Intent Comments: sinus rhythm , borderline T abnormal ant leads MAMMOGRAM, SCREENING, BOTH BREASTS On: 18-Nov-2010 Intent (47436)By: Silvana Simmons MD DXA, BONE DENSITY, AXIAL SKELETON On: 18-Nov-2010 Intent (24959)By: Silvana Simmons MD Wax CurettesBy: PAIGE Rees On: 26-Mar-2010 Intent Ear Irrigation (54035)By: Cabrera On: 26-Mar-2010 Intent PAIGE SPECIMEN HNDLNG/TRNSPRT, OFFC > LAB On: 24-Nov-2009 Intent (62211)By: PAIGE Rees EEGBy: Ciesa Peggy ASH Ciesa [employer], On: 12-Aug-2009 Intent Peggy Saldana Holter Moniter (19643)By: Ciesa On: 12-Aug-2009 Intent Peggy ASH Cigeovany ASH Peggy Saldana CT - Brain/HeadBy: Citoma Peggy ASH On: 12-Aug-2009 Intent CiPeggy armenta CNP Bio Z (45273)By: Ciesa MIHIR Peggy Saldana On: 12-Aug-2009 Intent Peggy Lott CNP Echo CompleteBy: Peggy Lott CNP On: 12-Aug-2009 Intent Peggy Lott CNP Cartoid DopplerBy: Peggy Lott CNP On: 12-Aug-2009 Intent CiPeggy armenta CNP EKG (72441)By: Reanna Becker On: 12-Aug-2009 Intent Radiology - Cervical SpineBy: On: 04-Dec-2008 Intent Silvana Simmons MD Breast Diagnostic - RightBy: Iris On: 17-Nov-2008 Intent Silvana COLLINS Comments: abnormal mammo, 04-04 due for follow up EKG (21595)By: Silvana Simmons MD On: 17-Nov-2008 Intent MAMMOGRAM, SCREENING, BOTH BREASTS On: 27-Aug-2007 Intent (07996)By: Silvana Simmons MD EKG (72818)By: Silvana Simmons MD On: 27-Aug-2007 Intent Clinical Breast Examination On: 12-Jan-2007 Intent (G0101)By: Silvana Simmons MD MAMMOGRAM, SCREENING, BOTH BREASTS On: 12-Jan-2007 Intent (12370)By: Silvana Simmons MD Comments: after 02-15-07 Toradol [...] patient does not have durable power of gse mechanic or living will. The patient has noticed [...] ,emotional problems (depression) ,hypertension and other (hyperlipidemia, [place], low back pain, osteopenia ). Note for [...] [facility] End: 21-Aug-2006 15:45 Payers [place]/Medicare Lilliana Felix; stanley guarantor
--- OUTSIDE RECORDS SUMMARY | 2019-02-15 03:20 | XMS RPT_ITS ---
:1950 Author Organization OHIP Support Name Relationship Address Phone ISIDRO PADDY Unavailable [address] [place] [address] MARLON ARREDONDO Unavailable Unavailable + [place], [place] Unavailable Unavailable Unavailable PADDY ARREDONDO Unavailable [address] + [address] [place] [address] AAMIR ARREDONDOA Unavailable Unavailable + [place] Unavailable Unavailable Unavailable PADDY ARREDONDO Unavailable [address] [place] [address] MARLON ARREDONDO Unavailable Unavailable + [place] Unavailable Unavailable Unavailable PADDY ARREDONDO Unavailable [address] + [address] [place] [address] AAMIR ARREDONDOA Unavailable Unavailable + [place] Unavailable Unavailable Unavailable PADDY ARREDONDO Unavailable [address] + [address] [place] [address] AAMIR ARREDONDOA Unavailable Unavailable + [place] Unavailable Unavailable Unavailable PADDY ARREDONDO Unavailable [address] + [address] [place] [address] AAMIR ARREDONDOA Unavailable Unavailable + [place] Unavailable Unavailable Unavailable PADDY ARREDONDO Unavailable [address] + [address] [place] [address] MARLON ARREDONDO Unavailable . + [place], [place] . [place] Unavailable Unavailable Unavailable PADDY ARREDONDO Unavailable [address] + [address] [place] [address] MARLON ARREDONDO Unavailable . + [place], [place] . R Unavailable Unavailable Unavailable PADDY ARREDONDO Unavailable [address] + [address] [place] [address] MARLON ARREDONDO Unavailable . + [place], [place] . R Unavailable Unavailable Unavailable Care Team Providers Name Role Phone SydneePeggy armenta Attending Unavailable Silvana Simmons MD Referring Unavailable Sydneegeovany, Peggy Consulting Unavailable Yovanny Rossi Attending Unavailable Yovanny Rossi Referring Unavailable Ciesa, Peggy Primary Care Unavailable Ciesa, Peggy Primary Care Unavailable Mario Draper Attending Unavailable Ciesa, Peggy Primary Care Unavailable Sue Friedman Attending Unavailable Citoma, Peggy Attending Unavailable Ciesa, Peggy Referring Unavailable Citoma, Peggy Primary Care Unavailable Oren, Peggy Attending Unavailable Citoma, Peggy Primary Care Unavailable Citoma, Peggy Attending Unavailable Ciesa, Peggy Referring Unavailable Ciesa, Peggy Primary Care Unavailable Ciesa, Peggy Primary Care Unavailable Ramiro Barney Attending Unavailable Ramiro Barney Referring Unavailable Radhaa Peggy Attending Unavailable Ciesa, Peggy Referring Unavailable Sydneeesa, Peggy Primary Care Unavailable Sydneeesa, Peggy Primary Care Unavailable Kristopher Cota Attending Unavailable PROBLEMS PROBLEMS DATE TYPE CONDITION / CODE ATTENDING STATUS SOURCE 12/13/2018 Unknown S83.8X1D - Sprain Yovanny Rossi Active [facility] specified parts [facility] of right knee, Repository subsequent encounter / S83.8X1D(ICD-10) 10/25/2018 Unknown S89.91XA - Kristopher Cota Active [facility] injury of right Hospital lower leg, Repository initial encounter / S89.91XA(ICD-10) 09/10/2018 Unknown D64.9 - Anemia, Peggy Lott Active [facility] unspecified / Community D64.9(ICD-10) Hospital Repository 09/10/2018 Unknown M25.511 - Pain in Peggy Lott Active [facility] right shoulder / Community M25.511(ICD-10) Hospital Repository 04/18/2018 Unknown S13.4XXD - Sprain Peggy Lott Active [facility] of ligaments of Community cervical spine, Hospital subsequent Repository encounter / S13.4XXD(ICD-10) 01/24/2018 Unknown 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 [place] [address] / REHABILITATION SERVICES DISCHARGE SUMMARY MR#: [id number] Acct: [id number] Name: YEIMI ARREDONDO Rep #: [id number] : 1950 68 From: Blake Stevens PT, Cert. T, OCS Referring Dr.: Yovanny GARCIA Status: REG RCR Insurance: [employer] PPO SELF PAY INSURANCE HP - PT D/C Summary It has been my pleasure to treat YEIMI ARREDONDO under orders from Yovanny Rossi PA-C, for the diagnosis of SPRAIN OF OTHER SPECIFIED PARTS OF RIGHT KNEE for a total of 6 visit(s). Discharge Date: 12/13/18 Please see the following information for a summary of their discharge status. - Subjective Subjective: Patient doing alot. Patient is able to walk with no pain . Patient able to perform all ADL'S and housework tasks - Pain Right Knee Pain Intensity (Out of 10): 0 - Overall Improvement % Improvement: 90 - Objective Objective/Function: POSTURE: mild knee valgus. NEURO:unremarkable. PALAPTION: unremarkable. AROM: 0-130 SUPINE KNEE FLEXION. MMT: QUADS/HAMS 4/5 HIP 4-/5,ANKLE 4/5 - Goals Goal 1:: Indenpendant with HEP. Goal Progress: Goal Met Goal 2:: Patient to normalize gait with reciprocal pattern Goal 3:: Patient to increase strength quads/hams/hip 4/5 to improve function. Goal Progress: Goal Met Goal 4:: Patient be able to perform ADL'S and job demnads with limitations Goal Progress: Goal Met Goal 5:: Patient to improve LFES score by 5-10 points or greater to improve QOL. Goal Progress: Goal Met - Plan Plan: Continue to progress ROM/Strength of right LE. - D/C Information Discharge Comments: D/C TO HEP If there are questions or concerns regarding this patient's physical therapy, please feel free to call me at [phone]. Thank you for the referral of this patient. Sincerely, Blake Stevens PT, Cert HOME, OCS <Electronically signed by Cert. HOME Tolentino PT, ABELARDO> 12/14/18 0928 CC: Peggy Lott RESEARCH MECHANIC; Yovanny GARCIA JLA Signed PT D/C SUMMARY (2) Observed: 12/14/2018 Status: F Source: [place] 9:28 AM [facility] REPOSITORY [facility] [address] [place] [address] / REHABILITATION SERVICES DISCHARGE SUMMARY MR#: [id number] Acct: [id number] Name: YEIMI ARREDONDO Rep #: [id number] : 1950 68 From: Cert. HOME Tolentino PT, ABELARDO Referring Dr.: Yovanny GARCIA Status: REG RCR Insurance: [employer] PPO SELF PAY INSURANCE HP - PT D/C Summary (2) It has been my pleasure to treat YEIMI ARREDONDO under orders from Yovanny Rossi PA-C, for the diagnosis of RIGHT SHOULDER PAIN for a total of 7 visit(s). Discharge Date: 12/13/18 Please see the following information for a summary of their discharge status. - Subjective Subjective: pain in shoulder is some better.. [place] activies - Overall Improvement % Improvement: 30 - Objective Objective/Function/Assessment: POSTURE: mild rounded foward head. PALAPTION: tender AC. AROM: shoulder flexion/abduction 160 degrees,ER 90 degrees. MMT: Supraspinatous 4-/5 ,pain infraspinatous 4-/5 mild pain deltoid 4-/5 mild pain. +impingement - Goals Patient Goals: Improve Mobility, Improve Function, Decrease Pain, Alleviate Pain, Walk Normal, Improve ROM, Sleep Normal Goal 1:: Independant with HEP Goal Progress: Goal Met Goal 2:: Patient to decrease right shoulder pain by 50% or greater to improve dfunction. Goal Progress: Progressing Goal 3:: Patient to improve strength 4/5 to improve function with [place] activities. Goal Progress: Progressing Goal 4:: Patient be able to perform ADLS and housewotk tasks with min limiations. Goal Progress: Progressing Goal 5:: Patient to improve QUICK DASH JULIAN score by 5 points or greater to improve QOL. Goal Progress: Goal Met - Plan Plan: D/C CONT WITH HEP. F/U WITH MD - D/C Information Discharge Comments: HEP AND RTD If there are questions or concerns regarding this patient's physical therapy, please feel free to call me at [phone]. Thank you for the referral of this patient. Sincerely, Blake Stevens, PT, Cert MDT, OCS <Electronically signed by Blake Stevens PT, Cert. MDT, OCS> 12/14/18927 CC: Peggy Lott NP; Yovanny GARCIA LIVIER Signed DISCHARGE INSTRUCTION Observed: 12/03/2018 Status: F Source: [place] 4:48 PM [facility] REPOSITORY [facility] Medical Records Department [address] [place] [address] Discharge Instruction 12/03/18 1630 MR#: [id number] Acct: [id number] Name: YEIMI ARREDONDO Rep #: [id number] : 1950 68 From: Mario Draper MD PCP: Peggy Lott NP Status: REG ER ED Disposition - Plan for ED Patient: Disposition: Home or Assisted Living Chief Complaint: Flank Pain Instructions: ED Flank Pain Uncertain Cause Referrals: Peggy Lott RESEARCH MECHANIC-C [Primary Care Provider] - 3-5 Days if not improving Additional Instructions: Follow-up with your nurse practitioner. Your labs are unremarkable today. There is no signs of urinary tract infection. The CAT scan showed no signs of an acute kidney stone. What to do if you have Problems For any increased pain, shortness of breath, bleeding, nausea or vomiting, chest pain, or any unexpected problems, contact your Primary Care Provider. Call [employer] Registry ([phone]) or report to the closest Emergency Room. Call 911 if necessary. 12/03/18 1648 <Electronically signed by Mario Draper MD> Date Mario Draper MD Cosigner Signature (If Indicated): Date CC: Peggy Lott NP EMERGENCY DEPARTMENT Observed: 12/03/2018 Status: F Source: [place] SUMMARY 4:48 PM [facility] REPOSITORY [facility] Medical Records Department [address] [place] [address] Emergency Department Summary 12/03/18 1406 MR#: [id number] Acct: [id number] Name: YEIMI ARREDONDO Rep #: [id number] : 1950 68 From: Mario Draper MD PCP: Peggy Lott NP Status: REG ER - ER Visit Summary Date of Service: 12/03/18 Chief Complaint: Flank pain History of Present Illness: The patient is a 68 F history of multiple kidney stones some needed to be surgically removed. Prior hysterectomy. Patient states that since around 1030 this morning she had right flank pain radiating to her right lower quadrant. Associated nausea vomiting. No fever. No dysuria. No gross hematuria. Physical Examination: Well-appearing older female. Vital signs are stable. She is afebrile. She does not look septic toxic. She is in no acute distress. H EENT exam unremarkable. Neck nontender. Lungs clear to auscultation bilaterally. Heart regular rhythm no murmur. Abdomen soft and nontender. Peritoneal signs. No pulsatile mass. Moving all 4 extremities neurovascularly intact. Calves are nontender without edema or cords. Neurologically she is awake and alert. Back is nontender. No CVA tenderness. Neurologically awake and alert with no focal motor deficits. Test Results: BMP unremarkable. Liver enzymes normal. UA normal. No infection. No blood. CT flank study without contrast shows a right intrarenal calculi. No acute ureteral calculi nor obstructive uropathy. Prior appendectomy and hysterectomy. Read by the radiologist and reviewed by myself also. Emergency Department Course and Treatment: Treated with IV morphine and Zofran. Liter normal saline. Patient doing well on repeat exam at 1627. Abdomen is benign. She and I discussed all her test results. Treatment Plan: Discharged home.. Follow-up with her primary care provider Peggy Lott Disposition: Discharge Impression: Acute right flank pain of uncertain etiology History of kidney stones This note was generated with [employer] dictation software. It may contain incorrect words, spelling, and punctuation that were not noted in review of the chart prior to signing ED Disposition - Plan for ED Patient: Chief Complaint: Flank Pain Referrals: Peggy Lott, RESEARCH MECHANIC-C [Primary Care Provider] - What to do if you have Problems For any increased pain, shortness of breath, bleeding, nausea or vomiting, chest pain, or any unexpected problems, contact your Primary Care Provider. Call [facility] ([phone]) or report to the closest Emergency Room. Call 911 if necessary. 12/03/18 1648 <Electronically signed by Mario Draper MD> Date Mario Draper MD Cosigner Signature (If Indicated): Date CC: Peggy Lott NP ABDOMEN/PELVIS WITHOUT Observed: 12/03/2018 Status: F Source: [place] CONT 2:05 PM [facility] REPOSITORY [facility] Imaging Services [address] [place] [address] Abdomen/Pelvis without Cont MR#: [id number] Acct: [id number] Name: ISIDROYEIMI J Rep #: [id number] : 1950 F 68 From: Tylor Amor MD PCP: Peggy Lott NP Status: REG ER Study: Abdomen/Pelvis without Cont Date of Exam: 12/03/18 Exam# [id number] Ordering Dr: Mario Draper MD STUDY: CT ABDOMEN AND PELVIS WITHOUT CONTRAST REASON FOR EXAM: Female, 68 years old. Right flank pain. History of kidney stones. RADIATION DOSAGE (If Supplied By Facility): CTDIvol = ( 6.75 ) mGy, DLP = ( 295.24 ) mGycm TECHNIQUE: Transaxial images were obtained from the dome of the diaphragm to the symphysis pubis without oral contrast, and without intravenous contrast. Sagittal and coronal images were reconstructed. Individualized dose optimization techniques were used for this CT. COMPARISON: Comparison is made with prior study dated December 25, 2017. FINDINGS: Mild increased markings in the anterior aspect of the left lung base suggestive of scarring. This is unchanged. Coronary artery calcification. Stable 2.9 cm x 2.5 cm rounded hypodense nodule in the posterior aspect of the right lobe of the liver. This may represent an hemangioma. Normal gallbladder and extrahepatic biliary system. Normal spleen. Normal pancreas. Normal bilateral adrenal glands. Punctate calcification in the upper pole calyx of the right kidney. 2 mm calculus in the lower pole calyx of the right kidney. Normal left kidney. Normal visualized stomach. Normal small intestine. There are multiple colonic diverticula consistent with diverticulosis. There are surgical clips in the region of the appendix consistent with a prior appendectomy. There is scattered atherosclerotic calcification of the abdominal aorta, without a demonstrated aneurysm. Normal inferior vena cava. Normal retroperitoneum. Normal urinary bladder. There is absence of the uterus consistent with a prior hysterectomy. Normal abdominal wall. There are diffuse degenerative changes of the visualized lumbar spine. Prior laminectomy at the L4-L5 and L5-S1 levels. CT/Abdomen/Pelvis without Cont IMPRESSION: Nonobstructive right intrarenal calculi. No obstructive uropathy is seen. Electronically Signed: Tylor Amor MD at 15:01 EST Tel [phone], Service support , CC: Peggy Lott NP; Mario Draper MD Core Winder Machine Operator: Signed URINALYSIS, COMPLETE Collected: 12/03/2018 Status: F Source: [place] 1:00 PM [facility] REPOSITORY Order Comment: How was Urine Obtained? CLEAN CATCH TYPE CODE TESTS RESULT OUT OF RANGE REFERENCE UNITS LAB L400.3000 Yellow COLOR Normal Yellow LAB L400.3050 Clear Normal CLARITY Clear LAB L400.3200 Normal mg/dl Normal GLUCOSE, UR Normal LAB L400.3300 Negative mg/dL Normal BILIRUBIN URINE Negative LAB L400.3400 Negative mg/dl Normal KETONE UR Negative LAB L400.3465 1.002-1.030 Normal SP.GR. DIPSTX 1.015 LAB L400.3550 5.0 - 8.0 pH UR Normal 7.0 LAB L400.3600 Negative mg/dl PROT Normal DIPSTX Negative LAB L400.3700 Normal mg/dl Normal UROBILI Normal LAB L400.3750 Negative Normal NITRITE UR Negative LAB L400.3780 Negative /ul Normal OCCULT BLOOD-UR Negative LAB L400.3800 Negative /ul High LEUK 25 ESTERASE LAB L400.4050 0-5 /hpf WBC Normal 0-5 SEEN LAB L400.4100 0-5 /hpf 0 Normal RBC-UA SEEN LAB L400.4150 5-10 /hpf SQUAM Normal EPI 0-5 SEEN LAB L400.4300 None Seen /hpf 0 Normal BACTERIA SEEN LAB L400.4350 <or=2+ /hpf 0 Normal MUCUS, URINE SEEN Performed By: #### L400.0001 #### [facility] [address] [place], [place], [address] BASIC METABOLIC Collected: 12/03/2018 Status: F Source: [place] PROFILE (BMP) 1:00 PM [facility] REPOSITORY TYPE CODE TESTS RESULT OUT OF RANGE REFERENCE UNITS LAB L501.0100 74-106 mg/dL Normal GLU 93 Result Comment: Please note revised GLUCOSE reference range effective 2017. LAB L501.1000 7-18 mg/dL High BUN 22 LAB L501.1100 0.55-1.02 mg/dL Normal CREAT,SERUM 0.75 Result Comment: The validity of the calculated GFR AND GFRAA in patients over 70 years has not been determined. Clinical correlation is essential. LAB L501.1110 >60 mL/min Normal EST GFR 81 Result Comment: Non- GFR Calc LAB L501.1115 >60 mL/min Normal EST GFR - AA 98 Result Comment: GFR Calc LAB L501.1255 ml/min Normal Estimated CRCL 38.14 LAB L501.1300 10-20 RATIO High BUN/CRE 29.3 LAB L501.2200 8.5-10 mg/dL Normal .1 CA 9.1 LAB L501.5300 136-14 mmol/L Normal 5 NA 140 LAB L501.5600 3.5-5. mmol/L Normal 1 K 3.9 LAB L501.5900 98-107 mmol/L Normal CL 105 LAB L501.6100 21.0-3 mmol/L Normal 2.0 CO2 27.0 LAB L501.6200 5-15 Normal GAP 8 Performed By: #### L500.2500, L500.3400 #### [facility] [address] [place], [address] LIVER PROFILE Collected: 12/03/2018 Status: F Source: [place] 1:00 PM [facility] REPOSITORY TYPE CODE TESTS RESULT OUT OF RANGE REFERENCE UNITS LAB L501.1500 6.4-8.2 g/dL Normal T PROT 7.7 LAB L501.1800 3.2-5.0 g/dL Normal ALB 4.0 LAB L501.1950 2.2-4.2 g/dL Normal GLOB 3.7 LAB L501.4100 15-37 U/L Normal AST 19 LAB L501.4305 45-117 U/L Normal ALK P 62 LAB L501.4405 13-56 U/L Normal ALT 27 LAB L501.4600 0.20-1.00 mg/dL Normal T BILI 0.70 LAB L501.4700 0.00-0.30 mg/dL Normal D BILI 0.16 Performed By: #### L500.2500, L500.3400 #### [facility] [address] [place], [place], [address] INITIAL EVALUATION (2) Observed: 11/26/2018 Status: F Source: [place] - PT 5:34 PM [facility] REPOSITORY [facility] Physical Therapy [address] [place] [address] / REHABILITATION SERVICES INITIAL EVALUATION MR#: [id number] Acct: [id number] Name: YEIMI ARREDONDO Rep #: [id number] : 1950 68 From: Blake Stevens PT, Cert. MDT, OCS Referring Dr.: Yovanny GARCIA Status: REG R Insurance: [employer] PPO SELF PAY INSURANCE Patient's Visit Information YEIMI ARREDONDO is a 68 year old F referred to Physical Therapy by Yovanny Rossi PA-C with a diagnosis of RIGHT SHOULDER PAIN. Date of Evaluation: 11/22/18 Physical Therapist: Blake Stevens PT, Cert MDT, OCS - Visit Plan Frequency: 2x /Week Duration: 4 Weeks Plan: US/ESTIM/CP FOR PAIN RELEIVE,RTC/SCAPUALR STRENGTHENING,POSTURAL EX'S - Subjective Findings: This 68 y/o female presents to physical therapy right shoulder pain since Aug 11. Pateint stated falling at [place] landed on right shoulder pain progressively worse.Patient pain located right shoulder grossly to lateral upper arm. Symptoms worse with driving,[place] activities above 90 degrees impairs ADLS' and housework tasks. Pain described as ache. Patient better rest. Patient seen DR tried coritizone injections didn't help and gave MEDS.Also did x-rays for fracture. Patient pain affects sleep. Patient pain affects QOL and function. SOCAIL: . 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 PALPATION: BICIPATAL GROVE long head bicep,subscabularis. NEURO: intact. AROM: shoulder flexion 160 degrees,abduction 155 degrrees,ER 90 degrees,IR 75 degrees. SCAPULAR HUMERAL FUNCTION: 1:1. CAPSULAR: WFL. MMT: RTC 4-/5 EXCEPT SUBSACPULARIS 3+/5 with pain ,DELTOID 4-/5 pain scapular 3+/5. FUNCTIONAL TEST: IR L3,ER C5 - Special Tests External Rotation Lag Test - RC Tear: Negative Supine Impingement Test - RC Tear: Negative Drop Sign - IS Test: Negative Empty Can - SS: Negative Belly Press - SupScap: Negative Joseph Luis Angel - Impingement: Negative Speeds Test - Labrum/Biceps: Positive AC Resisted - AC: Negative - Goals Goal 1:: Independant with HEP Goal Time Frame: 4-6 Weeks Goal 2:: Patient to decrease right shoulder pain by 50% or greater to improve dfunction. Goal Time Frame: 4-6 Weeks Goal 3:: Patient to improve strength 4/5 to improve function with [place] activities. Goal Time Frame: 4-6 Weeks Goal 4:: Patient be able to perform ADLS and housewotk tasks with min limiations. Goal Time Frame: 4-6 Weeks Goal 5:: Patient to improve QUICK DASH JULIAN score by 5 points or greater to improve QOL. Goal Time Frame: 4-6 Weeks - Rehabilitation Potential Physical Therapy Diagnosis: Patient appears to have bicepital tendonitis with pain and with palaption nand MMT, weak and painfull subscapularis pain with MMT which impairs ADLS' and housework activities thus benifit from skilled PT Rehabilitation Potential: Good - Anticipated Interventions Patient/Client Instruction: Educate patient on: Condition, Plan of Care For the Purpose of:: To decrease pain, To increase ROM, To improve muscle performance and motor function, To improve ability to perform ADL's, To increase tolerance to activity/condition/position, To improve ability of physical actions for home/community/work/leisure, To improve health of tissue, To decrease soft tissue restriction, To increase flexibility/ROM, To improve ability to perform tasks related to life management Therapeutic Exercise to Include: Strength training, Postural training, Flexibilty training, Active ROM, Scapular Strength/Stabilization For the Purpose of:: To decrease pain, To increase ROM, To improve muscle performance and motor function, To improve ability to perform ADL's, To increase tolerance to activity/condition/position, To improve ability of physical actions for home/community/work/leisure, To improve health of tissue, To decrease soft tissue restriction, To improve ability to perform tasks related to life management TENS: Yes IF ES: Yes Cryotherapy (ice pack, ice massage): Yes Thermo therapy (hot pack): Yes Ultrasound (thermal/non thermal): Yes For the Purpose of:: To decrease pain, To improve nutrient delivery to tissue, To increase oxygenation perfusion, To decrease soft tissue restriction, To increase flexibility/ROM Thank you for the opportunity to evaluate your patient. For Medicare and Medicare HMO plans, please review the plan of care and approve it. It will need to be FAXED BACK to us at [phone] for Medicare purposes. For Medicare only, by signing this I certify the plan of care. Please let me know if there are questions or concerns regarding this plan of care. Physician Signature: Date: <Electronically signed by Cert. HOME Tolentino PT, OCS> 11/26/18 1737 CC: Peggy Lott RESEARCH MECHANIC; Yovanny GARCIA LIVIER Signed INITAL EVALUATION (1) Observed: 11/15/2018 Status: F Source: [place] - PT 1:54 PM [facility] REPOSITORY [facility] [address] [place] [address] Fax REHABILITATION SERVICES INITIAL EVALUATION MR#: [id number] Acct: [id number] Name: YEIMI ARREDONDO Rep #: [id number] : 1950 68 From: Cert. HOME Tolentino PT, OCS Referring Dr.: Yovanny GARCIA Status: REG RCR Insurance: [facility] MEDICARE O SELF PAY INSURANCE Patient's Visit Information YEIMI ARREDONDO is a 68 year old F referred to Physical Therapy by Yovanny Rossi PA-C with a diagnosis of SPRAIN OF OTHER SPECIFIED PARTS OF RIGHT KNEE. Date of Evaluation: 11/13/18 Physical Therapist: Blake Stevens PT, Shannan BHAT, OCS - Visit Plan Frequency: 2x /Week Duration: 4 Weeks Plan: MODALITIES NEEDED ,PRE'S QUAD/HAMS/HIP ,FUNCTIONAL STRENGTHENING - Subjective Findings: This 68 y/o female prfesents to physical therapy with right knee pain . Patient has had knee pain 2weeks after tripping at home on carpet and heard a pop. Patient seen [facility] x-rays -. Patient described as ache and sharp pain. Patient had few episodes of buckling. Patient stated knee is worse with walking ,.standing,sqautting,kneeling. Symptoms okay at night. Sleeping good. Patient denies parathesia/tingling. Patient pain affects QOL and function. 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 SOCIAL: - Pain Right Knee Pain Intensity (Out of 10): 6 Pain Intensity Range: 10 - Objective POSTURE:mild posture ,mild knee valgus. NEURO: denies parathesia/tingling,reflexes 2/3. GAIT: reciprocal pattern ,mild decrease satnce right side. PROPRIOCEPTION: poor. MMT: quads/hams 4-/5,hip flexion 3+/5,abd 3+/5. ATROPHIED: VMO. AROM: supine knee flexion 0-140 degrees. STAIRS: ascend/desend one step at time. EDEMA: absent - Special Tests R Knee Yecenia - Meniscus: Negative R Knee Apley - Meniscus: Negative R Knee Valgus - MCL: Negative R Knee Varus - LCL: Negative R Knee Patellar Grind - PFS: Negative R Knee Medial Patellar Plica - Plica Syndrome: Negative - Goals Goal 1:: Indenpendant with HEP. Goal Time Frame: 2-4 Weeks Goal 2:: Patient to normalize gait with reciprocal pattern Goal Time Frame: 2-4 Weeks Goal 3:: Patient to increase strength quads/hams/hip 4/5 to improve function. Goal Time Frame: 4-6 Weeks Goal 4:: Patient be able to perform ADL'S and job demnads with limitations Goal Time Frame: 4-6 Weeks Goal 5:: Patient to improve LFES score by 5-10 points or greater to improve QOL. Goal Time Frame: 4-6 Weeks - Rehabilitation Potential Physical Therapy Diagnosis: This patient has right knee pain with weakness impairs function with walking ,kneeling thus impairs ADL'S thus benifit skilled PT. Rehabilitation Potential: Good - Anticipated Interventions Patient/Client Instruction: Educate patient on: Condition, Plan of Care For the Purpose of:: To decrease pain, To improve muscle performance and motor function, To increase tolerance to activity/condition/position, To improve ability of physical actions for home/community/work/leisure, To improve health of tissue, To decrease soft tissue restriction, To improve ability to perform tasks related to life management Therapeutic Exercise to Include: Strength training, Balance training, Active ROM Comment: QUADS/HAMS/HIP For the Purpose of:: To decrease pain, To improve muscle performance and motor function, To increase tolerance to activity/condition/position, To improve ability of physical actions for home/community/work/leisure, To improve health of tissue, To decrease soft tissue restriction, To increase flexibility/ROM, To improve health and function, To improve ability to perform tasks related to life management TENS: Yes IF ES: Yes Cryotherapy (ice pack, ice massage): Yes Thermo therapy (hot pack): Yes For the Purpose of:: To decrease pain, To improve nutrient delivery to tissue, To increase oxygenation perfusion, To improve health of tissue, To decrease soft tissue restriction Thank you for the opportunity to evaluate your patient. For Medicare and Medicare HMO plans, please review the plan of care and approve it. It will need to be FAXED BACK to us at [phone] for Medicare purposes. For Medicare only, by signing this I certify the plan of care. Please let me know if there are questions or concerns regarding this plan of care. Physician Signature: Date: <Electronically signed by Blake Stevens PT, Cert. T, OCS> 11/15/18 1354 CC: Peggy Lott NP; Yovanny GARCIA LIVIER Signed EMERGENCY DEPARTMENT Observed: 10/25/2018 Status: F Source: [place] SUMMARY 7:03 PM [facility] REPOSITORY [facility] Medical Records Department [address] [place] [address] Emergency Department Summary 10/25/18 1643 MR#: [id number] Acct: [id number] Name: YEIMI ARREDONDO Rep #: [id number] : 1950 68 From: Kristopher Cota MD [...] knee sprain This note was generated with [employer] dictation software. It may contain incorrect words, spelling, and punctuation that were not noted in review of the chart prior to signing ED Disposition - Plan for ED Patient: Chief Complaint: Lower Extremity Injury Instructions: ED Sprain Knee Prescriptions: Hydrocodone Bitart/Apap 5-325 [[place] 5MG-325MG] 1 tab PO Q4H PRN PRN 2 Days #6 tab PRN Reason: Pain Naproxen [Naprosyn] 500 mg PO BID PRN #20 tab Referrals: Kristopher Sparks, DO [STAFF PHYSICIAN] - What to do if you have Problems For any increased pain, shortness of breath, bleeding, nausea or vomiting, chest pain, or any unexpected problems, contact your Primary Care Provider. Call [facility] ([phone]) or report to the closest Emergency Room. Call 911 if necessary. 10/25/18 7253 <Electronically signed by Kristopher Cota MD> Date Kristopher Cota MD Cosigner Signature (If Indicated): Date CC: Peggy Lott RESEARCH MECHANIC KNEE 4 OR MORE Observed: 10/25/2018 Status: F Source: [place] VIEWS 4:43 PM [facility] Imaging Services [address] [place] [address] Knee 4 or More Views MR#: [id number] Acct: [id number] Name: YEIMI ARREDONDO Rep #: [id number] : 1950 F 68 From: Bety Díaz MD PCP: Peggy Lott NP Status: REG ER Study: Knee 4 or More Views Date of Exam: 10/25/18 Exam# [id number] Ordering Dr: Kristopher Cota MD STUDY: X-RAY [...] CC: Peggy Lott NP; Kristopher Cota MD Core Winder Machine Operator: Signed IRON Collected: 09/10/2018 Status: F Source: [place] 4:39 PM [facility] REPOSITORY TYPE CODE TESTS RESULT OUT OF RANGE REFERENCE UNITS LAB L503.6150 50-170 ug/dL Normal IRON 79 Performed By: #### L503.6150 #### [facility] [address] [place], [place], [address] CBC W/DIFF, AUTOMATED Collected: 09/10/2018 Status: F Source: [place] 4:39 PM [facility] REPOSITORY TYPE CODE TESTS RESULT OUT OF [...] Lymph 1.01 Performed By: #### L100.0100 #### [facility] [address], [address] SHOULDER MIN 2 VIEWS Observed: 09/10/2018 Status: F Source: [place] 4:37 PM [facility] REPOSITORY [facility] Imaging Services [address] [place] [address] Shoulder min 2 Views MR#: [id number] Acct: [id number] Name: YEIMI ARREDONDO Rep #: [id number] : 1950 F 67 From: Christian Simeon MD PCP: Peggy Lott NP Status: REG CLI Study: Shoulder min 2 Views Date of Exam: 09/10/18 Exam# [id number] Ordering Dr: Peggy Lott RESEARCH MECHANIC-C STUDY: X-RAY - RIGHT SHOULDER REASON FOR [...] Service support , CC: Peggy Lott NP Core Winder Machine Operator: Signed 12 LEAD ELECTROCARDIOGRAM Observed: 07/26/2018 Status: F Source: [place] 1:39 PM [facility] REPOSITORY [facility] Cardiovascular Services [address] [place] [address] 12 Lead EKG 07/24/18 1737 MR#: [id number] Acct: [id number] Name: YEIMI ARREDONDO Rep #: [id number] : 1950 67 From: Calixto Ludwig MD [...] rhythm Poor R wave progression Confirmed by CALIXTO LUDWIG MD ([id number]), technical editor BEENA JIN ([id number]) on 07/26/2018 1:39:09 PM Referred By: Ramiro Barney Confirmed By:CALIXTO LUDWIG MD 07/26/18 1339 Date Calixto Ludwig MD CC: Peggy Lott NP; Ramiro Barney MD Signed EMERGENCY DEPARTMENT Observed: 07/25/2018 Status: F Source: [place] SUMMARY 1:43 AM [facility] REPOSITORY [facility] Medical Records Department [address] [place] [address] Emergency Department Summary 07/24/18 1852 MR#: [id number] Acct: [id number] Name: YEIMI ARREDONDO Rep #: [id number] : 1950 67 From: Ramiro Barney MD [...] 1. Dehydration. This note was generated with [employer] dictation software. It may contain incorrect words, [...] problems, contact your Primary Care Provider. Call [employer] Registry ([phone]) or report to the closest Emergency Room. Call 911 if necessary. 07/25/18 0143 <Electronically signed by Ramiro Barney MD> Date Ramiro Barney MD Cosigner Signature (If Indicated): Date CC: Peggy Lott RESEARCH MECHANIC CBC W/DIFF, AUTOMATED Collected: 07/24/2018 Status: F Source: [place] 6:35 PM [facility] REPOSITORY TYPE CODE TESTS RESULT OUT OF [...] Lymph 0.62 Performed By: #### L100.0100 #### [facility] [address], [address] BASIC METABOLIC Collected: 07/24/2018 Status: F Source: [place] PROFILE (BMP) 6:35 PM [facility] REPOSITORY TYPE CODE TESTS RESULT OUT OF [...] GAP 8 Performed By: #### L500.2500 #### [facility] [address], [address] PT D/C SUMMARY (1) Observed: 04/18/2018 Status: F Source: [place] 7:33 AM [facility] REPOSITORY [facility] Physical Therapy [facility] [address] [place] [address]. [address] [place], [place] [address] Fax REHABILITATION SERVICES DISCHARGE SUMMARY MR#: [id number] Acct: [id number] Name: YEIMI ARREDNODO Rep #: [id number] : 1950 67 From: Danny Callahan DPT, OCS, CSCS Referring Dr.: Peggy Lott NP Status: REG RCR Insurance: ANTHEM MEDICARE PPO [...] appropriate strength program to earnest at local [facility] Goal Progress: Goal Met Goal 4:: Work without increased pain Goal Progress: Goal Met - Plan Plan: D/C - D/C Information Discharge Comments: Ready to be done 100% better. Will f/u with doctor in May. If there are questions or concerns regarding this patient's physical therapy, please feel free to call me at [phone]. Thank you for the referral of this patient. Sincerely, Danny Callahan DPT, OC <Electronically signed by Danny Callahan DPT, ABELARDO, CSCS> 04/18/18 0733 CC: Peggy Lott NP EBG Signed INITAL EVALUATION (1) Observed: 02/24/2018 Status: F Source: [place] - PT 9:45 AM [facility] REPOSITORY [facility] Physical Therapy [facility] [address] [place] [address]. [address] [place] [address] Fax REHABILITATION SERVICES INITIAL EVALUATION MR#: [id number] Acct: [id number] Name: YEIMI ARREDONDO Rep #: [id number] : 1950 67 From: Danny Callahan DPT, OCS, CSCS Referring Dr.: Peggy Lott NP Status: REG RCR Insurance: [employer]M MEDICARE PPO SELF PAY INSURANCE Patient's Visit [...] be I with appropriate strength program to chayachristos at local [facility] Goal Time Frame: 2-4 Weeks Goal [...] to be FAXED BACK to us at [phone] for Medicare purposes. Please let me know if there are questions or concerns regarding this plan of care. Physician Signature: Date: <Electronically signed by Danny Callahan DPT, OCS, CSCS> 02/24/18 0945 CC: Peggy Lott NP EBG Signed For Medicare only, by signing this I certify the plan of care. Physicians Signature Date CERV SPINE 4 OR 5 Observed: 02/19/2018 Status: F Source: [place] VIEWS 3:04 PM [facility] REPOSITORY [facility] Imaging Services [address] [place] [address] Cerv Spine 4 or 5 Views MR#: [id number] Acct: [id number] Name: YEIMI ARREDONDO Rep #: [id number] : 1950 F 67 From: Hayden Fernandes MD PCP: Peggy Lott NP Status: REG CLI Study: Cerv Spine 4 or 5 Views Date of Exam: 02/19/18 Exam# [id number] Ordering Dr: Peggy Lott STUDY: X-RAY - [...] Service support , CC: Peggy Lott NP Core Winder Machine Operator: Signed PARATHYROID SCAN Observed: 01/24/2018 Status: F Source: [place] 10:12 AM [facility] REPOSITORY [facility] Imaging Services [address] [place] [address] Parathyroid Scan MR#: [id number] Acct: [id number] Name: YEIMI ARREDONDO Rep #: [id number] : 1950 F 67 From: Vern Hendricks DO PCP: Peggy Lott NP Status: REG CLI Study: Parathyroid Scan Date of Exam: 01/24/18 Exam# [id number] Ordering Dr: Peggy Lott CLINICAL: 67-year-old female [...] Service support , CC: Peggy Lott NP Core Winder Machine Operator: Signed EMERGENCY DEPARTMENT Observed: 12/25/2017 Status: F Source: [place] SUMMARY 8:39 AM [facility] REPOSITORY [facility] Medical Records Department [address] [place] [address] Emergency Department Summary 12/25/17 0838 MR#: [id number] Acct: [id number] Name: YEIMI ARREDONDO Rep #: [id number] : 1950 67 From: Ty Mckeon MD PCP: Peggy Lott NP Status: REG ER - ER Visit Summary Date of Service: 12/25/17 Chief Complaint: [] History of Present Illness: The patient is a 67 F [] Physical Examination: [] Test Results: [] Emergency Department Course and Treatment: [] Treatment Plan: [] Disposition: [] Impression: [] This note was generated with [employer] software. It may contain incorrect words, spelling, [...] your Primary Care Provider. Call [facility] ([phone]) or report to the closest Emergency Room. Call 911 if necessary. 12/25/1739 <Electronically signed by Ty Mckeon MD> Date Ty Mckeon MD Cosigner Signature (If Indicated): Date CC: Peggy Lott NP EMERGENCY DEPARTMENT Observed: 12/25/2017 Status: F Source: [place] SUMMARY 8:38 AM [facility] REPOSITORY [facility] Medical Records Department [address] [place] [address] Emergency Department Summary 12/25/17 0627 MR#: [id number] Acct: [id number] Name: YEIMI ARREDONDO Rep #: [id number] : 1950 67 From: Sue Friedman PCP: [...] pain left-sided] This note was generated with [employer] software. It may contain incorrect words, spelling, [...] your Primary Care Provider. Call [facility] ([phone]) or report to the closest Emergency Room. Call 911 if necessary. 12/25/17 0750 <Electronically signed by Sue Friedman > Date Sue Friedman Cosigner Signature (If Indicated): Date CC: Peggy Lott RESEARCH MECHANIC URINALYSIS, COMPLETE Collected: 12/25/2017 Status: F Source: [place] 7:45 AM [facility] REPOSITORY Order Comment: How was Urine Obtained? [...] URINE SEEN Performed By: #### L400.0001 #### [facility] [address] [facility] [place], [address] ABDOMEN/PELVIS WITHOUT Observed: 12/25/2017 Status: F Source: [place] CONT 6:07 AM [facility] REPOSITORY [facility] Imaging Services [address] [place] [address] Abdomen/Pelvis without Cont MR#: [id number] Acct: [id number] Name: YEIMI ARREDONDO Rep #: [id number] : 1950 F 67 From: Tylor Amor MD PCP: Peggy Lott NP Status: REG ER Study: Abdomen/Pelvis without Cont Date of Exam: 12/25/17 Exam# [id number] Ordering Dr: Sue Friedman STUDY: CT ABDOMEN [...] Tylor Amor MD at 8:10 EST Tel [phone], Service support , CC: Peggy Lott RESEARCH MECHANIC; Sue Friedman Core Winder Machine Operator: Signed CBC W/DIFF, AUTOMATED Collected: 12/25/2017 Status: F Source: [place] 5:58 AM [facility] REPOSITORY TYPE CODE TESTS RESULT OUT OF [...] Lymph 1.16 Performed By: #### L100.0100 #### [facility] [address], [address] COMPREHENSIVE METABOLIC Collected: 12/25/2017 Status: F Source: [facility] 5:58 AM [facility] REPOSITORY TYPE CODE TESTS RESULT OUT OF [...] 8 Performed By: #### L500.4050, L501.2450 #### [facility] [address] [facility] [place], [place], [address] LIPASE Collected: 12/25/2017 Status: F Source: [place] 5:58 AM [facility] REPOSITORY TYPE CODE TESTS RESULT OUT OF RANGE REFERENCE UNITS LAB L501.2450 73-393 U/L Normal LIPASE 211 Performed By: #### L500.4050, L501.2450 #### [facility] [address] [facility] [facility] [place], [address] ALLERGIES ALLERGIES DATE TYPE / CODE NAME / CODE REACTION SEVERITY SOURCE 12/03/2018 Drug Sulfa Nausea Unknown [facility] Allergy/416 (Sulfonamide Hospital 970986([facility] Antibiotics)/F0 Repository [address]) 49110131(RXNORM ) 12/03/2018 Drug Tetanus Swelling Unknown [facility] Allergy/416 [facility] 429223(SNOM Toxoid/X1165506 Repository ED CT) 19(RXNORM) 12/03/2018 Drug codeine/Q593108 Nausea Unknown [facility] Allergy/416 550(RXNORM) Hospital 631922(SNOM Repository ED CT) ENCOUNTERS ENCOUNTERS ADMIT/DISCHARGE ACCOUNT ADMITTING ENCOUNTER LOCATION SOURCE NUMBER CLASS 12/13/2018 [id number] Ambulatory [place] 0 [facility] ing:PT Repository 12/03/2018/ [id number] Emergency [place] 9 7 [facility] ing:ED Repository 10/25/2018/ [id number] Emergency [place] 8 2 [facility] ing:ED Repository 10/16/2018 1575 Ambulatory Building:[facility] [place] Practices Repository 09/10/2018 [id number] Ambulatory [place] 2 [facility] ing:MTLAB Repository 07/24/2018/ [id number] Emergency [place] 8 5 [facility] ing:ED Repository 04/17/2018/ [id number] Ambulatory [place] 8 9 [facility] ing:PT Repository 02/19/2018 [id number] Ambulatory [place] 4 [facility] ing:HPRAD Repository 01/24/2018 [id number] Ambulatory [place] 8 [facility] ing:NM Repository 12/25/2017/ [id number] Emergency [place] 8 5 [facility] ing:ED Repository PAYERS PAYERS ENCOUNTER GUARANTOR PAYER SUBSCRIBER SOURCE 12/13/2018 PADDY Lerneroster [id number] Insurance:MARIANNE JUNIOR: Community MELROSE DRUNIT I MEDICARE PPOPolicy [id number] Number: Repository [address]Uzz: [phone] [id number] [phone] () Date:4478-46-98VU [address] [place] [address] 139[address]RB: 12/13/2018 Secondary NOT GIVENUNK [place] Insurance:SELF PAY [facility] Number: Effective Repository Date:2018-11-12 12/03/2018 PADDY Primary YEIMI J [place] [id number] Insurance:MARIANNE FERNANDESB: Community KAJAL DRUNIT I MEDICARE PPOPolicy [id number] Number: Repository [id number]: 330 [id number] [phone] (HP) Date:4886-67-24WX [address] [place] [address] 95[address]GJ: 12/03/2018 Secondary NOT GIVENUNK [place] Insurance:SELF PAY [facility] Number: Effective Repository Date:2018-12-03 10/25/2018 PADDY T Primary YEIMI J [place] [id number] Insurance:MARIANNE FERNANDESB: [facility] KAJAL DRUNIT MEDICARE PPOPolicy [id number], [place] Number: Repository [address]Tyt: 330 [id number] [phone] () Date:9508-73-88PE [address] [place] [address] 683[address]RK: 10/25/2018 Secondary NOT GIVENUNK [place] Insurance:SELF PAY [facility] Number: Effective Repository Date:2018-10-25 10/16/2018 Yeimi J Primary Yeimi J OHIP Practices IsidroDOB: Insurance:Marianne/Octavio FernandesB: Repository [id number] care [facility] [id number] Number: [address], [id number] [address], [place] [address]Hqk: Date:8426-38-42Ggtk [place] [address]Pub: Name:[address] () [address]Bqgeniv, [place] () [id number]: 10/16/2018 Secondary Paddy T OHIP Practices Insurance:Toro FernandesB: Repository icy Number: [id number] [address] Date:1998-05-27[facility], 2330-58-83Fmgc [place] [address]Xir: Name:[facility] Aristeo [address] [place] [address] (HP)Tel: [phone]: [phone] 10/16/2018 [facility] OHIP Practices Insurance:[facility] Blaze: Repository l Benefits [id number] AdminPolicy Number: [address] [id number] [address], Date:2006-10-27 - [place] [address]Buk: [id number] Name:[address] [place] [address] ()Tel: [phone]) [facility] [phone] () [place] [address]GV: 10/16/2018 [facility] OHIP Practices Insurance:Toro FernandesB: Repository icy Number: [id number] [address] Date: - [facility], [id number] [place] [address]Pjc: Name:[facility] [address] [place] [address] (HP)Tel: [phone]: () [phone] 10/16/2018 [facility] OHIP Practices Insurance:[facility] DenaB: Repository ChoicePolicy Number: [id number] [address] Date:2011-07-28[facility], 2972-17-36Xsio [place] [address]Afm: Name:[facility] [address], [place] ()Tel: [phone]: [phone] (MA) [phone] 10/16/2018 [facility] Yeimi OHIP Practices Insurance:Marianne/Octavio Junior: Repository care Adv planPolicy [id number] Number: [address] [place] [address] [id number], Date:2014 - [place] [address]Okx: [id number] ~(3 Name:[address] (HP) [address] [place] [id number]: 09/10/2018 [facility] Primary YEIMI J [place] [id number] Insurance:MARIANNE JUNIOR: Community KAJAL DRUNIT MEDICARE OPolic [id number] [place] Number: Repository [address]Haf: 330 [id number] [phone] () Date:8588-91-66EX [address] [address]IQ: 09/10/2018 Secondary NOT GIVENUNK [place] Insurance:SELF PAY [facility] [place] Number: Effective Repository Date:2018-09-10 07/24/[address] [facility] [place] [id number] Insurance:MARIANNE JUNIOR: Community Kajal DrUnit MEDICARE [facility] [id number] [place] Number: Repository [address]Jxg: (330 [id number] [phone] (HP) Date:3360-25-48OD [address] [address]VJ: 07/24/2018 Secondary NOT GIVENUNK [place] Insurance:SELF PAY [facility] Number: Effective Repository Date:2018-07-24 04/17/2018 [facility] [place] [id number] Insurance:MARIANNE JUNIOR: Community Kajal DrUnit MEDICARE [facility] [id number] [place] Number: Repository [address]Udu: (330 [id number] [phone] (HP) Date:1105-32-14WX [address] [place] [address]57[address]QL: 04/17/2018 Secondary NOT GIVENUNK [place] Insurance:SELF PAY [facility] Number: Effective Repository Date:2018-02-19 02/19/2018 Paddy Vigil Primary YEIMI Pantoja [place] [id number] Insurance:MARIANNE JUNIOR: Community [address] MEDICARE OPolic [id number] Number: Repository [phone]: (330) [id number] [phone] (HP) Date:1449-74-07HM [address] [place] [address] 84[address]UH: 02/19/2018 Secondary NOT GIVENUNK [place] Insurance:SELF PAY [facility] Number: Effective Repository Date:2018-02-19 01/24/2018 Paddy Viigl Primary YEIMI Scarlett [place] [id number] Insurance:MARIANNE JUNIOR: Community Kajal DrUnit MEDICARE [facility] [id number], [place] Number: Repository [id number]: (330 [id number] [phone] (HP) Date:4641-93-58FG [address] [place] [address] 54[address]RV: 01/24/2018 Secondary NOT GIVENUNK [place] Insurance:SELF PAY [facility] Number: Effective Repository Date:2018-01-17 12/25/2017 Paddy Vigil Primary YEIMI Pantoja [place] [id number] Insurance:MARIANNE JUNIOR: Community [address] Dr[address] MEDICARE [facility] [id number], [place] Number: Repository [address]Smh: (330) [id number] [phone] (HP) Date:5843-87-33PZ [id number] [place] [address]WQ: 12/25/2017 Secondary NOT GIVENUNK [place] Insurance:SELF PAY [facility] Number: Effective Repository Date:2017-12-25
== END 2018-12-13 19:00 | disposition home or self-care (01) ==
LOC: PT 16:00
PROVIDERS: Family Provider Nurse Practitioner; PCP Nurse Practitioner; Referring Provider Physician Assistant; Visit Provider Physician Assistant
DX: S83.8X1D Sprain of other specified parts of right knee, subsequent encounter (principal); M25.511 Pain in right shoulder
CPT/HCPCS: 97014; 97035; 97110; 97162; 97530; G0283

== ENCOUNTER 2019-01-17 15:30 | Outpatient (RCR) | payer MEDICARE, SELFPAY ==
--- NOTE | 2018-12-28 15:00 | HP.PTEVAL_ITS ---
Patient's Visit Information JOSE RAFAEL ARREDONDO is a 68 year old F referred to Physical Therapy by Yovanny Rossi PA-C with a diagnosis of OTHER SYNOVITIS AND TENOSYVITIS ,RIGHT SHOULDER. Date of Evaluation: 12/28/18 Physical Therapist: Blake Stevens, PT, Cert MDT, OCS - Visit Plan Frequency: 2x /Week Duration: 4 Weeks Plan: US ,ESTIM/CP TO LONG HEAD BICEP ,RTC/POSTURAL EX'S - Subjective Findings: Patient presnenst to physical therapy with right shoulder pain since Jul 2018. Patient stated that she fell on right shoulder then about weak later pain progessively became worse. Patient seen family x-rays -. Hillary tried some PT helped a ltttle with pain. Patient then return to [facility] orthopediics for consult. Patient was guven pain MEDS recommended PT. Possible plan to ge further diagnostics if pain doesnt get better.Pain patient located anrioer deltoid. Symptoms worse with activity [place] ,ligting affects ADL'S. Patient sleping okay at night. Patient use ice for pain. Patient denies parathesia/tingling. Pain right shoulder pain affects QOL and ADL'S. SOCIAL: . VOCATION: works at [employer] - Pain Right Shoulder Pain Intensity (Out of 10): 5 Pain Intensity Range: 10 - Objective POSTURE: mild foward posture ,rounded shoulders. PALAPTION: tender biciptal tendonits. NEURO: intact. AROM: flexion 150 degrees ,150 degrees abduction ,ER 90 ,75 degrees pain with overpressur all planes. FUNCTIONAL TEST: reach behind C6, L1 IR. MMT: RTC 4/5 ,supraspinatisu 4-/5,infraspinatous 4-/5 ,deltoid 4-/5 pain - Special Tests R Shoulder Lift Off Test - Subscapular Tear: Negative R Shoulder Empty Can - SS: Positive R Shoulder Neer - Impingement: Positive R Shoulder Joseph Luis Angel - Impingement: Positive R Shoulder Yeargasons - SLAP: Positive R Shoulder Speeds Test - Labrum/Biceps: Positive R Shoulder Sulcus Sign - Inferior Laxity: Negative - Goals Goal 1:: Patient to be Independant with HEP Goal Time Frame: 4-6 Weeks Goal 2:: Decrease shoulder pain by 50% or greater to improve function and ADL'S Goal Time Frame: 4-6 Weeks Goal 3:: Patient increase strength RTC and deltoid 4/5 to improve function with activities above 90 degrees. Goal Time Frame: 4-6 Weeks Goal 4:: Patient to ability to perform ADL'S and hoisework tasks abobe 90 WITH MIN LIMIATIONS Goal Time Frame: 4-6 Weeks Goal 5:: Patient to improve Quick Dash disablity score by 5 points to improve QOL. Goal Time Frame: 4-6 Weeks - Rehabilitation Potential Physical Therapy Diagnosis: This patient appears to have bicipital tendonists with pain with palaption and pain with MMT,ROM , impairs ADL'S Aand activities above 90 degrees. Rehabilitation Potential: Good - Anticipated Interventions Patient/Client Instruction: Educate patient on: Condition, Plan of Care For the Purpose of:: To decrease pain, To increase ROM, To improve muscle performance and motor function, To improve ability to perform ADL's, To increase tolerance to activity/condition/position, To improve ability of physical actions for home/community/work/leisure, To improve gait and locomotor functions, To decrease soft tissue restriction, To increase flexibility/ROM, To assume or resume ADL's, To improve ability to perform tasks related to life management Therapeutic Exercise to Include: Strength training, Postural training, Flexibilty training, Scapular Strength/Stabilization Comment: RTC For the Purpose of:: To decrease pain, To decrease swelling/inflammation, To increase ROM, To improve muscle performance and motor function, To improve ability to perform ADL's, To increase tolerance to activity/condition/position, To improve ability of physical actions for home/community/work/leisure, To imp rove health of tissue, To decrease soft tissue restriction, To increase flexibility/ROM, To improve ability to perform tasks related to life management TENS: Yes IF ES: Yes Cryotherapy (ice pack, ice massage): Yes Thermo therapy (hot pack): Yes Ultrasound (thermal/non thermal): Yes For the Purpose of:: To decrease pain, To increase ROM, To improve nutrient delivery to tissue, To increase oxygenation perfusion, To improve health of tissue, To decrease soft tissue restriction Thank you for the opportunity to evaluate your patient. For Medicare and Medicare HMO plans, please review the plan of care and approve it. It will need to be FAXED BACK to us at [phone] for Medicare purposes. For Medicare only, by signing this I certify the plan of care. Please let me know if there are questions or concerns regarding this plan of care. Physician Signature: Date:
--- NOTE | 2019-01-17 16:09 | HP.PTDCSUM ---
HP - PT D/C Summary It has been my pleasure to treat JOSE RAFAEL ARREDONDO under orders from Yovanny Rossi PA-C, for the diagnosis of OTHER SYNOVITIS AND TENOSYVITIS ,RIGHT SHOULDER for a total of 5 visit(s). Discharge Date: 01/17/19 Please see the following information for a summary of their discharge status. - Subjective Subjective: Doing better overall ..less pain - Pain Right Shoulder Pain Intensity (Out of 10): 1 - Overall Improvement % Improvement: 70 - Objective Objective/Function: POSTURE: WFL. NEURO: intact. PALAPTION: unrematkable. AROM: shoufer flexion 160 ,abduction 160 degrees ,ER 90 degrees. MMT: RTC 4/5 ,DELTOID 4-/5 lateral deltoid mild pain - Goals Goal 1:: Patient to be Independant with HEP Goal Progress: Goal Met Goal 2:: Decrease shoulder pain by 50% or greater to improve function and ADL'S Goal Progress: Goal Met Goal 3:: Patient increase strength RTC and deltoid 4/5 to improve function with activities above 90 degrees. Goal Progress: Goal Met Goal 4:: Patient to ability to perform ADL'S and hoisework tasks abobe 90 WITH MIN LIMIATIONS Goal Progress: Goal Met Goal 5:: Patient to improve Quick Dash disablity score by 5 points to improve QOL. Goal Progress: Goal Met - Plan Plan: D/C TO HEP - D/C Information Discharge Comments: HEP If there are questions or concerns regarding this patient's physical therapy, please feel free to call me at [phone]. Thank you for the referral of this patient. Sincerely, Blake Stevens, PT, Cert MDT, OCS
== END 2019-01-17 19:00 | disposition home or self-care (01) ==
LOC: PT 15:30
PROVIDERS: Family Provider Nurse Practitioner; PCP Nurse Practitioner; Referring Provider Physician Assistant; Visit Provider Physician Assistant
DX: M65.811 Other synovitis and tenosynovitis, right shoulder (principal)
CPT/HCPCS: 97014; 97110; 97162; 97530; G0283

== ENCOUNTER 2019-03-01 07:14 | Emergency (ER) | payer MEDICARE, SELFPAY ==
[2019-03-01 07:15] VITALS: BP 137/82; PULSE 88; RESP 18; TEMP 36.4; O2SAT 100; BMI 24.6
--- NOTE | 2019-03-01 07:25 | CT_ITS ---
STUDY: CT ABDOMEN AND PELVIS WITHOUT CONTRAST REASON FOR EXAM: Female, 68 years old. Left flank pain. History of kidney stones. RADIATION DOSAGE (If Supplied By Facility): CTDIvol = ( 6.39 ) mGy, DLP = ( 284 ) mGycm TECHNIQUE: Transaxial images were obtained from the dome of the diaphragm to the symphysis pubis without oral contrast, and without intravenous contrast. Sagittal and coronal images were reconstructed. Individualized dose optimization techniques were used for this CT. COMPARISON: Comparison is made with prior study dated December 03, 2018. FINDINGS: The visualized lung bases are unremarkable. Coronary artery calcification. Stable 2.9 cm x 3 cm rounded hypodense nodule in the posterior aspect of the right lobe of the liver. This most likely represents an hemangioma. Normal gallbladder and extrahepatic biliary system. Normal spleen. Normal pancreas. Normal bilateral adrenal glands. Punctate calcification in the upper pole calyx of the right kidney. 2 mm calculus in the lower pole of the right kidney 2 mm calculus in the lower pole calyx of the left kidney. Normal visualized stomach. Normal small intestine. There are multiple colonic diverticula consistent with diverticulosis. The patient status post appendectomy. There is diffuse atherosclerotic calcification of the abdominal aorta, without a demonstrated aneurysm. Normal inferior vena cava. Normal retroperitoneum. Normal urinary bladder. There is absence of the uterus consistent with a prior hysterectomy. Normal abdominal wall. There are diffuse degenerative changes of the visualized lumbar spine. CT/Abdomen/Pelvis without Cont IMPRESSION: Small nonobstructing bilateral intrarenal calculi. No evidence of urinary tract obstruction at this time. Stable 2.9 cm x 3 cm rounded hypodense nodule in the posterior aspect of right lobe of liver. Electronically Signed: Tylor Amor, at 8:41 EDT , Service support ,
[2019-03-01] MEDS: 0.9% Normal Saline 1,000 ML 250 ML IV (07:36)
[2019-03-01] MEDS: Ondansetron 4 MG/2 ML Vial IV (07:51)
[2019-03-01] MEDS: Morphine 4 MG/ML Syringe IV ×2 (07:51→11:00)
[2019-03-01 07:55] LABS: Absolute Lymphocyte Count 0.76 X10^3/ul (0.83-4.51); Anion Gap 5 (5-15); BUN 19 mg/dL (7-18); BUN/Creat Ratio 27.1 RATIO (10-20); Basophil# 0.05 X10^3/uL; Basophil% 1.1 % (0-1); Calcium,Total 8.9 mg/dL (8.5-10.1); Chloride 107 mmol/L (98-107); EST Glomerular Filtration Rate 88 mL/min (>60); Eosinophil# 0.15 X10^3/uL; Eosinophils% 3.4 % (0-5); Est Glom Filt Rate - Afr Amer 106 mL/min (>60); Estimated Creatinine Clearance 40.07 ml/min; Glucose 94 mg/dL (74-106); Hematocrit 43.5 % (37-47); Hemoglobin 14.1 g/dl (12.0-15.0); Lymphocyte # 0.76 X10^3/ul (4.0); Lymphocyte % 17.3 % (19-41); Mean Corp Hgb Conc 32.4 g/gl (32-36); Mean Corpuscular Hgb 29.7 pg (27.0-32.0); Mean Corpuscular Volume 91.8 fL (81-99); Mean Platelet Vol. 9.7 fl (6.2-12.0); Monocyte# 0.46 X10^3/uL; Monocyte% 10.5 % (0-10); Neutrophil # 2.97 X10^3/uL (2.7-7.7); Neutrophil % 67.5 % (47-70); Platelet Count 281 K/mm3 (150-450); Potassium 4.1 mmol/L (3.5-5.1); RBC Distribution Width CV 13.2 % (11.6-14.6); RBC Distribution Width SD 44.1 fl (35.1-43.9); Red Blood Count 4.74 M/mm3 (4.2-5.4); Sodium Level 140 mmol/L (136-145); White Blood Count 4.4 K/mm3 (4.4-11.0)
[2019-03-01 07:56] LABS: POSITIVE COUNT NO; POSITIVE DIFFERENTIAL NO; POSITIVE MORPHOLOGY NO
--- NOTE | 2019-03-01 08:36 | ED.DCSUM_ITS ---
- ER Visit Summary Date of Service: 03/01/19 Chief Complaint: Possible kidney stone History of Present Illness: The patient is a 68 F resents with left lower quadrant abdominal pain that began approximately 30 minutes prior to arrival. Patient states the pain is sharp and constant. Patient states the pain feels similar to prior kidney stones. Patient states the pain is improved when she lays flat. Patient denies any nausea or vomiting. Patient denies any diarrhea, melena, or hematochezia. Patient denies any dysuria, urgency, or hematuria. Patient states the pain does radiate into her back. Physical Examination: Vital signs are stable. Patient is afebrile. Patient is in no acute distress. Oral mucosa is pink and moist. Neck is supple. Trachea is midline. There is no JVD noted. Heart was regular rate and rhythm. Lungs are clear and equal bilateral. Abdomen is soft. Bowel sounds are normal. There is some left lower quadrant tenderness. There is no rebound or guarding noted. Cranial nerves II through XII are intact. There are no focal motor or sensory deficits noted. Test Results: CBC, basic metabolic profile, urinalysis were obtained and were all within normal limits. CT scan of the abdomen and pelvis was obtained. There are renal calculi but there is no obstructive uropathy. There is diverticulosis but no evidence of diverticulitis. Emergency Department Course and Treatment: Patient was given IV fluids, morphine, and Zofran. Patient was given a repeat dose of morphine. Patient was instructed to follow-up with her primary care physician in 5-7 days. Patient was advised of her test results. Patient understood and was agreeable with the plan. All questions were answered. Disposition: Discharge home Impression: Left lower quadrant abdominal pain This note was generated with [employer] dictation software. It may contain incorrect words, spelling, and punctuation that were not noted in review of the chart prior to signing ED Disposition - Plan for ED Patient: Disposition: Home or Assisted Living Diagnosis: Left lower quadrant abdominal pain of unknown etiology Instructions: ED Abdominal Pain Unkn Cause Referrals: Peggy Lott, CANDACE-C [Primary Care Provider] - 5-7 Days
[2019-03-01 10:23] LABS: Mucous, Urine 0 SEEN /hpf (<or=2+); Red Blood Cells-Urine 0 SEEN /hpf (0-5); White Blood Cells 0 SEEN /hpf (0-5)
[2019-03-01 10:25] LABS: Color, Urine Yellow (Yellow); Glucose, Dipstick Normal (Normal); Ketone-Dipstick Negative (Negative); Leukocyte Esterase-Dipstick Negative /ul (Negative); Nitrite-Dipstick Negative (Negative); Occult Blood-Urine Negative /ul (Negative); Protein-Dipstick Negative (Negative); Urine Bilirubin Dipstick Negative (Negative); Urine Clarity Sl. Cloudy (Clear); Urine Urobilinogen Normal (Normal)
[2019-03-01 10:59] VITALS: BP 157/88; PULSE 81; RESP 16; O2SAT 97
[2019-03-01 11:03] LABS: Bacteria RARE /hpf (None Seen); Squamous Epithelial Cells - UA 0-5 SEEN /hpf (5-10)
== END 2019-03-01 11:59 | disposition home or self-care (01) ==
PROVIDERS: Emergency Provider Emergency Medicine; Family Provider Nurse Practitioner; PCP Nurse Practitioner
DX: R10.32 Left lower quadrant pain (principal); N20.0 Calculus of kidney; I10 Essential (primary) hypertension; M54.9 Dorsalgia, unspecified; Z79.899 Other long term (current) drug therapy; Z87.442 Personal history of urinary calculi
CPT/HCPCS: 74176; 80048; 81001; 85025; 96361; 96374; 96375; 96376; 99283; J7030; J2405

== ENCOUNTER → 2019-03-21 16:49 | Outpatient (CLI) | payer MEDICARE, SELFPAY ==
[2019-03-01 07:15] VITALS: BMI 24.6
--- NOTE | 2019-03-21 17:05 | EKG12_ITS ---
Test Reason : PRE OP Blood Pressure : / mmHG Vent. Rate : 089 BPM Atrial Rate : 089 BPM P-R Int : 130 ms QRS Dur : 082 ms QT Int : 336 ms P-R-T Axes : 037 -23 006 degrees QTc Int : 408 ms Normal sinus rhythm Poor R wave progression Confirmed by OZIEL COLLINS, JOSE ([id number]), proposal editor BEENA JIN ([id number]) on 03/22/2019 7:05:42 AM Referred By: Yovanny Rossi Confirmed By:JOSE LUDWIG MD
[2019-03-21 17:19] LABS: Hematocrit 42.6 % (37-47); Mean Corp Hgb Conc 32.9 g/gl (32-36); Mean Corpuscular Hgb 29.6 pg (27.0-32.0); Mean Corpuscular Volume 90.1 fL (81-99); Mean Platelet Vol. 9.5 fl (6.2-12.0); Platelet Count 260 K/mm3 (150-450); RBC Distribution Width CV 13.4 % (11.6-14.6); RBC Distribution Width SD 43.9 fl (35.1-43.9); Red Blood Count 4.73 M/mm3 (4.2-5.4)
[2019-03-21 17:29] LABS: Scan Indicated on CBC? Y/N NO
[2019-03-21 17:43] LABS: Anion Gap 5 (5-15); BUN 25 mg/dL (7-18); BUN/Creat Ratio 32.7 RATIO (10-20); Calcium,Total 9.1 mg/dL (8.5-10.1); Chloride 106 mmol/L (98-107); Creatinine, Serum 0.76 mg/dL (0.55-1.02); EST Glomerular Filtration Rate 80 mL/min (>60); Est Glom Filt Rate - Afr Amer 96 mL/min (>60); Glucose 85 mg/dL (74-106); Potassium 4.4 mmol/L (3.5-5.1); Sodium Level 140 mmol/L (136-145)
== END ==
PROVIDERS: Family Provider Nurse Practitioner; PCP Nurse Practitioner; Referring Provider Physician Assistant; Visit Provider Physician Assistant
DX: Z01.818 Encounter for other preprocedural examination (principal); Z01.810 Encounter for preprocedural cardiovascular examination
CPT/HCPCS: 36415; 80048; 85027; 93005

== ENCOUNTER 2019-08-14 08:30 | Outpatient (RCR) | payer MEDICARE, SELFPAY ==
--- NOTE | 2019-04-12 14:56 | HP.PTEVAL_ITS ---
Patient's Visit Information JOSE RAFAEL ARREDONDO is a 68 year old F referred to Physical Therapy by Yovanny Rossi PA-C with a diagnosis of SPRAIN OF RIGHT ROTATOR CUFF CAPSULE. Date of Evaluation: 04/12/19 Physical Therapist: Blake Stevens PT, Cert MDT, OCS - Visit Plan Frequency: 2x /Week Duration: 18WEEKS Plan: S/P RTC REPAIR 04/05/19. *PATIENT IS HIGHLY IRRITABLE WITH PAIN. SEE GUIDELINES FOR RTC REPAIR. PHASE 1 PROM 4-6 WEEKS,PHASE 2 AAROM 4-6 WEEKS THEN PHASE 3 STRENGTHENING RTC/SCAPULAR,POSTURL EX'S,CP /ESTIM ,MANUAL THERAPY - Subjective Findings: This 68 y/o fmale presents to physical therapy with right shoulder RTC repair 04/05/[address] Sparks at [facility]. Patient d/c home to shoulder sling. Patient has had shoulder pain over one year. Tried PT not getting better thus underwent s/p RTC repair. Patient denies parathesia/tingling. Patient has pain thus taking pain medication.Patient sleepiing okay at night. Patient currently has limitations and unable to perform ADL's and self hygine with right UE. Patient s/p RTC repair affects QOL and ADL'S. SOCAIL: single. 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 SKIN: inscion well approximate ,sutures intact. PROM: supine shoulder flexion 95 degrees ,abduction in scapular plane 95 degrees ,ER 55 in scapation,IR abl to touch stomack. MMT: NT due to recent surgery - Goals Goal 1:: Patient to be Independant with HEP Goal Time Frame: 12-16 Weeks Goal 2:: Patient to decrease pain in right shoulder by 70% or greater to improve function. Goal Time Frame: 12-16 Weeks Goal 3:: Patient improve AROM right shoulder flexion 150 degrees,abduction 150 degrees in scapular plane,ER 85 degrees to improve function with ADL's and self hygine Goal Time Frame: 12-16 Weeks Goal 4:: Patient to increase strength RTC 4-/5 and deltoid to 3+/5 to mprove function with ADL'S and RTW, Goal Time Frame: 12-16 Weeks Goal 5:: Patient to improve quick shoulder dash score by 10 points to improve QOL. Goal Time Frame: 12-16 Weeks Goal 6:: Patient be able to perform ADL'S,housework tasks and job with min limations Goal Time Frame: 12-16 Weeks - Rehabilitation Potential Physical Therapy Diagnosis: This patient has right shoulder RTC repair with pain ,poor ROM,no strength which significantly impairs ADL'S and self hygine thus will need extension skilled PT . Rehabilitation Potential: Good - Anticipated Interventions Patient/Client Instruction: Educate patient on: Condition, Plan of Care For the Purpose of:: To decrease pain, To increase ROM, To improve muscle performance and motor function, To improve ability to perform ADL's, To increase tolerance to activity/condition/position, To improve performance and independence with ADL's, To decrease level of supervision to perform tasks, To improve ability of physical actions for home/community/work/leisure, To improve health of tissue, To decrease soft tissue restriction, To increase flexibility/ROM, To assume or resume ADL's, To improve tolerance to ADL's Therapeutic Exercise to Include: Strength training, Passive ROM, Active ROM, Scapular Strength/Stabilization Comment: PHASE 1 PROM,PHASE 2 AAROM ,PHASE 3 STRENGTHENING. SEE RTC REPAIR GUIDELINES For the Purpose of:: To decrease pain, To increase ROM, To improve muscle performance and motor function, To improve ability to perform ADL's, To increase tolerance to activity/condition/position, To improve performance and independence with ADL's, To decrease level of supervision to perform tasks, To improve ability of physical actions for home/community/work/leisure, To improve health of tissue, To decrease soft tissue restriction, To increase flexibility/ROM, To assume or resume ADL's, To reduce risk of recurrence, To improve tolerance to ADL's Manual Therapy Techniques to Include: Mobilization, Passive ROM Comment: OSSILLATIONS G-H For the Purpose of:: To decrease pain, To increase ROM, To improve nutrient delivery to tissue, To increase oxygenation perfusion, To decrease soft tissue restriction, To increase flexibility/ROM IF ES: Yes Cryotherapy (ice pack, ice massage): Yes Thermo therapy (hot pack): Yes For the Purpose of:: To decrease pain, To increase ROM, To improve nutrient delivery to tissue, To increase oxygenation perfusion, To improve health of tissue, To decrease soft tissue restriction Thank you for the opportunity to evaluate your patient. For Medicare and Medicare HMO plans, please review the plan of care and approve it. It will need to be FAXED BACK to us at [phone] for Medicare purposes. For Medicare only, by signing this I certify the plan of care. Please let me know if there are questions or concerns regarding this plan of care. Physician Signature: Date:
--- NOTE | 2019-05-24 12:29 | HP.PTREVAL ---
Yovanny Rossi PA-C, It has been my pleasure to treat JOSE RAFAEL ARREDONDO over the last 12 visits for SPRAIN OF RIGHT ROTATOR CUFF CAPSULE. Please see the progress note below for an update on the physical therapy plan of care! Subjective: Doing okay sore from ex's. Patient is doing ex's at home Objective/Function: POSTURE: rounded shoulders. PROM: shoulder flexion 140 degrees,abd in scapation 135 degrees ,ER 75 degrEes Plan Plan: REQUESTING MORE VISITS 12 PROGRESSED TO AAROM PHASE 2 NEXT 4-6 WEEKS. PATTIENT OUT OF SLING. S/P RTC REPAIR 04/05/19. NEED ROM PROGRESSIVE TO AAROM. SEE GUIDELINES FOR RTC REPAIR. PHASE 1 PROM 4-6 WEEKS,PHASE 2 AAROM 4-6 WEEKS THEN PHASE 3 STRENGTHENING RTC/SCAPULAR,POSTURL EX'S,CP /ESTIM ,MANUAL THERAPY Goals Goal 1:: Patient to be Independant with HEP Goal Time Frame: 12-16 Weeks Goal Progress: Progressing Goal 2:: Patient to decrease pain in right shoulder by 70% or greater to improve function. Goal Time Frame: 12-16 Weeks Goal Progress: Progressing Goal 3:: Patient improve AROM right shoulder flexion 150 degrees,abduction 150 degrees in scapular plane,ER 85 degrees to improve function with ADL's and self hygine Goal Time Frame: 12-16 Weeks Goal Progress: Not Progressing Goal 4:: Patient to increase strength RTC 4-/5 and deltoid to 3+/5 to mprove function with ADL'S and RTW, Goal Time Frame: 12-16 Weeks Goal Progress: Not Progressing Goal 5:: Patient to improve quick shoulder dash score by 10 points to improve QOL. Goal Time Frame: 12-16 Weeks Goal Progress: Progressing Goal 6:: Patient be able to perform ADL'S,housework tasks and job with min limations Goal Time Frame: 12-16 Weeks Goal Progress: Progressing Anticipated Interventions Patient/Client Instruction: Educate patient on: Condition, Plan of Care For the Purpose of:: To decrease pain, To increase ROM, To improve muscle performance and motor function, To improve ability to perform ADL's, To increase tolerance to activity/condition/position, To improve performance and independence with ADL's, To decrease level of supervision to perform tasks, To improve ability of physical actions for home/community/work/leisure, To improve health of tissue, To decrease soft tissue restriction, To increase flexibility/ROM, To assume or resume ADL's, To improve tolerance to ADL's Therapeutic Exercise to Include: Strength training, Passive ROM, Active ROM, Scapular Strength/Stabilization Comment: PHASE 1 PROM,PHASE 2 AAROM ,PHASE 3 STRENGTHENING. SEE RTC REPAIR GUIDELINES For the Purpose of:: To decrease pain, To increase ROM, To improve muscle performance and motor function, To improve ability to perform ADL's, To increase tolerance to activity/condition/position, To improve performance and independence with ADL's, To decrease level of supervision to perform tasks, To improve ability of physical actions for home/community/work/leisure, To improve health of tissue, To decrease soft tissue restriction, To increase flexibility/ROM, To assume or resume ADL's, To reduce risk of recurrence, To improve tolerance to ADL's Manual Therapy Techniques to Include: Mobilization, Passive ROM Comment: OSSILLATIONS G-H For the Purpose of:: To decrease pain, To increase ROM, To improve nutrient delivery to tissue, To increase oxygenation perfusion, To decrease soft tissue restriction, To increase flexibility/ROM IF ES: Yes Cryotherapy (ice pack, ice massage): Yes Thermo therapy (hot pack): Yes For the Purpose of:: To decrease pain, To increase ROM, To improve nutrient delivery to tissue, To increase oxygenation perfusion, To improve health of tissue, To decrease soft tissue restriction Please do not hesitate to contact me at [phone] by phone or if you have questions or concerns regarding this new plan of care! Sincerely, Blake Stevens, PT, Cert MDT, OCS
--- NOTE | 2019-06-27 16:29 | HP.PTREVAL_ITS ---
Yovanny Rossi PA-C, It has been my pleasure to treat JOSE RAFAEL ARREDONDO over the last 19 visits for SPRAIN OF RIGHT ROTATOR CUFF CAPSULE. Please see the progress note below for an update on the physical therapy plan of care! Subjective: Doing pulleys at home. Less pain overrall ,today more sore. Discussed doing pulleys 2-3 min Objective/Function: PROM: ER 85 degrees,flexion 160 degtrees,abd 170 degrees. AROM: flexion 130 degrees ,abduction 110 with substitution. MMT: infraspinatous 4-/5,supraspinatous 3+/5,subscap 4/5,deltoid 3/5 Plan Plan: REQUESTING 8 MORE VISITS DUE TO PROGRESSING TO PHASE 3 STRENGTHENING THUS BENIFIT FROM SKILLED PT. focus on improving ROM PHASE 2 NEXT 4WKS PROGRESS TO STRENGTHENING PHASE. S/P 12 WKS JUN 28. S/P RTC REPAIR 04/05/19. NEED ROM PROGRESSIVE TO AAROM. SEE GUIDELINES FOR RTC REPAIR. PHASE 1 PROM 4-6 WEEKS,PHASE 2 AAROM 4-6 WEEKS THEN PHASE 3 STRENGTHENING RTC/SCAPULAR,POSTURL EX'S,CP /ESTIM ,MANUAL THERAPY Goals Goal 1:: Patient to be Independant with HEP Goal Time Frame: 12-16 Weeks Goal Progress: Progressing Goal 2:: Patient to decrease pain in right shoulder by 70% or greater to improve function. Goal Time Frame: 12-16 Weeks Goal Progress: Progressing Goal 3:: Patient improve AROM right shoulder flexion 150 degrees,abduction 150 degrees in scapular plane,ER 85 degrees to improve function with ADL's and self hygine Goal Time Frame: 12-16 Weeks Goal Progress: Not Progressing Goal 4:: Patient to increase strength RTC 4-/5 and deltoid to 3+/5 to mprove function with ADL'S and RTW, Goal Time Frame: 12-16 Weeks Goal Progress: Not Progressing Goal 5:: Patient to improve quick shoulder dash score by 10 points to improve QOL. Goal Time Frame: 12-16 Weeks Goal Progress: Progressing Goal 6:: Patient be able to perform ADL'S,housework tasks and job with min limations Goal Time Frame: 12-16 Weeks Goal Progress: Progressing Anticipated Interventions Patient/Client Instruction: Educate patient on: Condition, Plan of Care For the Purpose of:: To decrease pain, To increase ROM, To improve muscle performance and motor function, To improve ability to perform ADL's, To increase tolerance to activity/condition/position, To improve performance and independence with ADL's, To decrease level of supervision to perform tasks, To improve ability of physical actions for home/community/work/leisure, To improve health of tissue, To decrease soft tissue restriction, To increase flexibility/ROM, To assume or resume ADL's, To improve tolerance to ADL's Therapeutic Exercise to Include: Strength training, Passive ROM, Active ROM, Scapular Strength/Stabilization Comment: PHASE 1 PROM,PHASE 2 AAROM ,PHASE 3 STRENGTHENING. SEE RTC REPAIR GUIDELINES For the Purpose of:: To decrease pain, To increase ROM, To improve muscle performance and motor function, To improve ability to perform ADL's, To increase tolerance to activity/condition/position, To improve performance and independence with ADL's, To decrease level of supervision to perform tasks, To improve ability of physical actions for home/community/work/leisure, To improve health of tissue, To decrease soft tissue restriction, To increase flexibility/ROM, To assume or resume ADL's, To reduce risk of recurrence, To improve tolerance to ADL's Manual Therapy Techniques to Include: Mobilization, Passive ROM Comment: OSSILLATIONS G-H For the Purpose of:: To decrease pain, To increase ROM, To improve nutrient delivery to tissue, To increase oxygenation perfusion, To decrease soft tissue restriction, To increase flexibility/ROM IF ES: Yes Cryotherapy (ice pack, ice massage): Yes Thermo therapy (hot pack): Yes For the Purpose of:: To decrease pain, To increase ROM, To improve nutrient d elivery to tissue, To increase oxygenation perfusion, To improve health of tissue, To decrease soft tissue restriction Please do not hesitate to contact me at [phone] by phone or Fax: if you have questions or concerns regarding this new plan of care! Sincerely, Blake Stevens, PT, Cert MDT, OCS
--- NOTE | 2019-08-14 08:53 | HP.PTDCNRP_ITS ---
HP - Discharge Summary (1) - Patient Information JOSE RAFAEL ARREDONDO was seen in my office for initial evaluation on 04/12/19. The following Plan of Care was established for this patient: Initial Frequency: 2x /Week Initial Duration: 18WEEKS - Anticipated Interventions Patient/Client Instruction: Educate patient on: Condition, Plan of Care For the Purpose of:: To decrease pain, To increase ROM, To improve muscle perf ormance and motor function, To improve ability to perform ADL's, To increase tolerance to activity/condition/position, To improve performance and independence with ADL's, To decrease level of supervision to perform tasks, To improve ability of physical actions for home/community/work/leisure, To improve health of tissue, To decrease soft tissue restriction, To increase flexibility/ROM, To assume or resume ADL's, To improve tolerance to ADL's Therapeutic Exercise to Include: Strength training, Passive ROM, Active ROM, Scapular Strength/Stabilization For the Purpose of:: To decrease pain, To increase ROM, To improve muscle performance and motor function, To improve ability to perform ADL's, To increase tolerance to activity/condition/position, To improve performance and independence with ADL's, To decrease level of supervision to perform tasks, To improve ability of physical actions for home/community/work/leisure, To improve health of tissue, To decrease soft tissue restriction, To increase flexibility/ROM, To assume or resume ADL's, To reduce risk of recurrence, To improve tolerance to ADL's Manual Therapy Techniques to Include: Mobilization, Passive ROM Comment: OSSILLATIONS G-H For the Purpose of:: To decrease pain, To increase ROM, To improve nutrient delivery to tissue, To increase oxygenation perfusion, To decrease soft tissue restriction, To increase flexibility/ROM IF ES: Yes Cryotherapy (ice pack, ice massage): Yes Thermo therapy (hot pack): Yes For the Purpose of:: To decrease pain, To increase ROM, To improve nutrient delivery to tissue, To increase oxygenation perfusion, To improve health of tissue, To decrease soft tissue restriction This patient was last seen in our office . Pertinent comments regarding their Physical therapy will appear below: At this point I will be discontinuing this patient from physical therapy. I would be happy to see this patient again in the future if found appropriate by the physician. Thank you! Blake Stevens, PT, Cert MDT, OCS
--- NOTE | 2019-08-14 16:46 | HP.PTDCSUM ---
HP - PT D/C Summary It has been my pleasure to treat JOSE RAFAEL ARREDONDO under orders from Yovanny Rossi PA-C, for the diagnosis of SPRAIN OF RIGHT ROTATOR CUFF CAPSULE for a total of 26 visit(s). Discharge Date: 08/14/19 Please see the following information for a summary of their discharge status. - Subjective Subjective: Doing good..not ready to return to work. Doing all ADL'S - Pain Right Shoulder Pain Intensity (Out of 10): 1 - Overall Improvement % Improvement: 75 - Objective Objective/Function: AROM: SHOULDER FLEXION 150 DEGRRES,ABD 135 IN SCAPATION,ER 90. MMT: INFRASPSINATOUS 4-/5,SUPRASPANTOUS 3+/5,DELTOID 3+/5 - Goals Goal 1:: Patient to be Independant with HEP Goal Progress: Goal Met Goal 2:: Patient to decrease pain in right shoulder by 70% or greater to improve function. Goal Progress: Progressing Goal 3:: Patient improve AROM right shoulder flexion 150 degrees,abduction 150 degrees in scapular plane,ER 85 degrees to improve function with ADL's and self hygine Goal Progress: Goal Met Goal 4:: Patient to increase strength RTC 4-/5 and deltoid to 3+/5 to mprove function with ADL'S and RTW, Goal Progress: Goal Met Goal 5:: Patient to improve quick shoulder dash score by 10 points to improve QOL. Goal Progress: Goal Met Goal 6:: Patient be able to perform ADL'S,housework tasks and job with min limations Goal Progress: Goal Met - Plan Plan: D/C TO HEP - D/C Information Discharge Comments: HEP If there are questions or concerns regarding this patient's physical therapy, please feel free to call me at [phone]. Thank you for the referral of this patient. Sincerely, Blake Stevens, PT, Cert MDT, OCS
== END 2019-08-14 19:00 | disposition home or self-care (01) ==
LOC: PT 08:30
PROVIDERS: Family Provider Nurse Practitioner; PCP Nurse Practitioner; Visit Provider Physician Assistant
DX: S43.421D Sprain of right rotator cuff capsule, subsequent encounter (principal)
CPT/HCPCS: 97110; 97140; 97162; 97530

== ENCOUNTER 2023-05-20 15:48 | Emergency (ER) | payer MEDICARE, SELFPAY ==
[2023-05-20 15:49] VITALS: BP 158/106; PULSE 132; RESP 18; TEMP 36.3; O2SAT 97; BMI 26.4
--- NOTE | 2023-05-20 15:58 | EX.ED.DYSGE1 ---
HPI <RADHA Coleman - Last Filed: 05/20/23 17:50> History of Present Illness Chief Complaint: Nausea/Vomiting Narrative Narrative: 76-year-old female with PMH of HTN presents with nausea and vomiting that started 2 days ago after she ate an Wol[place] sub. Since then she is vomiting anytime she tries to eat or drink and is having frequent loose stool. Denies hematemesis or blood in her stool. She has upper abdominal soreness. No fever or chills, chest pain or shortness of breath. Abdominal surgical history includes BTL. PFSH <RADHA Coleman - Last Filed: 05/20/23 17:50> PFSH Home Medications atenolol 25 mg tablet (Tenormin) 25 mg PO DAILY 12/25/17 [History Last Taken Unknown] lisinopril 2.5 mg tablet 2.5 mg PO DAILY 12/25/17 [History Last Taken Unknown] ondansetron 4 mg disintegrating tablet 4 mg PO Q6H PRN nausea and vomiting #12 tabs 05/20/23 [Rx Last Taken Unknown] Allergy/AdvReac Type Severity Reaction Status Date / Time Tetanus Vaccines and Toxoid Allergy Swelling Verified 03/01/19 07:17 codeine AdvReac Nausea Verified 03/01/19 07:17 Sulfa (Sulfonamide AdvReac Nausea Verified 03/01/19 07:17 Antibiotics) Social History Smoking Status: Never smoker ROS <RADHA Coleman - Last Filed: 05/20/23 17:50> ROS ED ROS Narrative Constitutional: Negative for fever, chills, malaise. CVS: Negative for palpitations, chest pain, syncope. Respiratory: Negative for shortness of breath, cough. GI: Positive for abdominal pain, nausea, vomiting, diarrhea. Negative for constipation, melena, hematochezia. : Negative for dysuria, hematuria or frequency. Neuro: Negative for headache. EXAM <RADHA Coleman - Last Filed: 05/20/23 17:50> Physical Exam Narrative Exam Narrative: CONST: Patient dry heaving during examination. EYES: Normal inspection. NECK: Normal inspection. RESP: No respiratory distress, CTAB. CVS: Regular rate and rhythm, no murmur, no gallop. ABD: Soft with slight midline epigastric tenderness, no guarding or rebound, nondistended, no hepatosplenomegaly. SKIN: Color normal, no rash, warm, dry, intact. EXTREMITIES: Normal appearance, no pedal edema. NEURO: Oriented x4. PSYCH: Normal affect. Const Vital Signs: 05/20/23 15:49 05/20/23 17:44 Temperature 97.4 F L Temperature Source Temporal Pulse Rate 132 H 104 H Respiratory Rate 18 18 Blood Pressure 158/106 H 137/76 H Blood Pressure Mean 123 96 Pulse Ox 97 93 Oxygen Delivery Method Room Air Room Air <Dr. Rafa Fox MD - Last Filed: 05/20/23 21:48> Physical Exam Const Vital Signs: 05/20/23 15:49 05/20/23 17:44 Temperature 97.4 F L Temperature Source Temporal Pulse Rate 132 H 104 H Respiratory Rate 18 18 Blood Pressure 158/106 H 137/76 H Blood Pressure Mean 123 96 Pulse Ox 97 93 Oxygen Delivery Method Room Air Room Air MDM <RADHA Coleman - Last Filed: 05/20/23 17:50> [facility] Lab Data Attestation: I reviewed the patient's lab results. Lab results narrative: History gathered from: Patient and Patient had 2 days of N/V/D. She has some abdominal soreness from vomiting but no overt pain. She is dry heaving but appears nontoxic. Her heart rate 132 she was slightly hypertensive with otherwise normal vital signs. I suspect this is secondary to dehydration. She had very minimal epigastric tenderness with an otherwise benign exam. CBC shows normal white count of 9.8, hemoglobin of 16.1 may be slightly concentrated from dehydration. Creatinine is up from 0.7 to 1.07 but the rest of her electrolytes, LFTs, and lipase are within normal limits. She vomited once briefly after IV fluids and Zofran but it is since resolved she states she feels much better and no longer has abdominal pain. She is tolerating p.o. intake. I suspect her symptoms are viral gastroenteritis with her normal white count and resolved abdominal pain I do not think a CT is indicated. I provided a stool collection kit and prescribed Zofran for home and discussed return precautions and she was discharged in stable condition. Labs: Laboratory Results - last 24 hr 05/20/23 05/20/23 16:05 16:05 WBC 9.8 RBC 5.44 H Hgb 16.1 H Hct 49.3 H MCV 90.6 MCH 29.6 MCHC 32.7 RDW Std Deviation 46.7 H RDW Coeff of Mack 14.1 Plt Count 267 MPV 9.9 Immature Gran % (Auto) 0.400 Neut % (Auto) 76.9 H Lymph % (Auto) 10.6 L [place] % (Auto) 11.2 H Eos % (Auto) 0.2 Baso % (Auto) 0.7 Absolute Neuts (auto) 7.6 Absolute Lymphs (auto) 1.04 Nucleated RBC % 0 Sodium 140 Potassium 3.5 Chloride 105 Carbon Dioxide 25.0 Anion Gap 10 BUN 17 Creatinine 1.07 H Estim Creat Clear Calc 35.34 Est GFR (MDRD) Af Amer 65 Est GFR (MDRD) Non-Af 53 L BUN/Creatinine Ratio 15.9 Glucose 122 H Calcium 10.0 Total Bilirubin 0.50 AST 30 ALT 33 Alkaline Phosphatase 91 Total Protein 8.5 H Albumin 3.7 Globulin 4.8 H Albumin/Globulin Ratio 0.8 L Lipase 34 <Dr. Rafa Fox MD - Last Filed: 05/20/23 21:48> [facility] Lab Data Labs: Laboratory Results - last 24 hr 05/20/23 05/20/23 16:05 16:05 WBC 9.8 RBC 5.44 H Hgb 16.1 H Hct 49.3 H MCV 90.6 MCH 29.6 MCHC 32.7 RDW Std Deviation 46.7 H RDW Coeff of Mack 14.1 Plt Count 267 MPV 9.9 Immature Gran % (Auto) 0.400 Neut % (Auto) 76.9 H Lymph % (Auto) 10.6 L [place] % (Auto) 11.2 H Eos % (Auto) 0.2 Baso % (Auto) 0.7 Absolute Neuts (auto) 7.6 Absolute Lymphs (auto) 1.04 Nucleated RBC % 0 Sodium 140 Potassium 3.5 Chloride 105 Carbon Dioxide 25.0 Anion Gap 10 BUN 17 Creatinine 1.07 H Estim Creat Clear Calc 35.34 Est GFR (MDRD) Af Amer 65 Est GFR (MDRD) Non-Af 53 L BUN/Creatinine Ratio 15.9 Glucose 122 H Calcium 10.0 Total Bilirubin 0.50 AST 30 ALT 33 Alkaline Phosphatase 91 Total Protein 8.5 H Albumin 3.7 Globulin 4.8 H Albumin/Globulin Ratio 0.8 L Lipase 34 Treatment and Re-Evaluation Comments:: Seen and evaluated independently and in conjunction with physician personal assistant. Agree with notes above unless documented otherwise. Couple days of vomiting and diarrhea without hematochezia or melena or hematemesis or fevers/chills that started a couple hours after eating a specific sandwich. She was having a little bit of upper abdominal soreness yesterday from vomiting that went away she felt like it was from vomiting, and then that recurred again today and has a now. Mild tenderness in her epigastrium otherwise her abdomen is benign. Plan: Suspect gastroenteritis. Could be foodborne, could be viral, noninfectious etiologies in the differential as well, but I agree that a CT does not appear to be indicated at this time. She does not have a leukocytosis, she is doing much better after symptomatic treatment including GI cocktail helping the abdominal discomfort, she did not have diarrhea here, we sent her home with a prescription for an enteric bacterial panel and stool collection kit and we discussed reasons to return. Discharge Plan Triage Chief Complaint: Nausea/Vomiting ED Midlevel Provider: Bettina Huynh ED Provider: Rafa Fox Dx/Rx/DC Orders Clinical Impression: Nausea and vomiting, Acute diarrhea, Mild dehydration Instructions: ED Diet Vomiting Diarrhea Prescriptions: New ondansetron 4 mg tablet,disintegrating 4 mg PO Q6H PRN (Reason: nausea and vomiting) Qty: 12 0RF No Action atenolol [Tenormin] 25 MG tablet 25 mg PO DAILY lisinopril 2.5 MG tablet 2.5 mg PO DAILY Other Ambulatory Orders: ENTERIC PATHOGEN PANEL STOOL (Routine) Timeframe: 2 Days Facility: [facility] - Location: Laboratory Ordered By: Bettina Huynh Primary Care Provider: Johanne Callahan Referrals: Johanne Callahan, PHYSICAL THERAPY MANAGER-C [Primary Care Provider] - Activity Restrictions/Additional Instructions: If you bring stool sample to the lab within the next 2 days they can run tests on it to check for bacteria and viruses. Stay hydrated, use the Zofran for nausea as needed. Eat a bland diet. Return to ER if symptoms worsen. Disposition Disposition: Home, Self Care Discharge Date/Time: 05/20/23 18:12
[2023-05-20] MEDS: Ondansetron 4 MG/2 ML Vial IV (16:10)
[2023-05-20] MEDS: 0.9% Normal Saline 1,000 ML 999 ML IV (16:10)
[2023-05-20 16:18] LABS: Absolute Lymphocyte Count 1.04 X10^3/uL (0.83-4.51); Absolute Neutrophil Count 7.6 X10^3/uL (2.0-7.7); Basophil# 0.07 X10^3/uL; Basophil% 0.7 % (0-1); Eosinophil# 0.02 X10^3/uL; Eosinophils% 0.2 % (0-5); Hematocrit 49.3 % (37-47); Hemoglobin 16.1 g/dL (12.0-15.0); Lymphocyte # 1.04 X10^3/ul (0.83-4.51); Lymphocyte % 10.6 % (19-41); Mean Corp Hgb Conc 32.7 g/dL (32-36); Mean Corpuscular Hgb 29.6 pg (27.0-32.0); Mean Corpuscular Volume 90.6 fL (81-99); Mean Platelet Vol. 9.9 fl (6.2-12.0); Monocyte% 11.2 % (0-10); NRBC Flagged by Analyzer 0 % (0-5); Neutrophil # 7.56 X10^3/uL (2.7-7.7); Neutrophil % 76.9 % (47-70); Platelet Count 267 K/mm3 (150-450); RBC Distribution Width CV 14.1 % (11.6-14.6); RBC Distribution Width SD 46.7 fl (35.1-43.9); Red Blood Count 5.44 M/mm3 (4.2-5.4); White Blood Count 9.8 K/mm3 (4.4-11.0)
[2023-05-20] MEDS: Dicyclomine 10 MG Capsule 20 MG PO (16:23)
[2023-05-20] MEDS: Famotidine 200 MG/20 ML MDV 20 MG in 0.9% Normal Saline (Pres. free 8 ML 300 MG IV (16:25)
[2023-05-20 17:08] LABS: ALB/GLOB Ratio 0.8 RATIO (0.9-2.4); AST(SGOT) 30 U/L (15-37); Alanine Aminotransfer ALT/SGPT 33 U/L (13-56); Albumin, Serum 3.7 g/dL (3.2-5.0); Alkaline Phosphatase 91 U/L (45-117); Anion Gap 10 (5-15); BUN 17 mg/dL (7-18); BUN/Creat Ratio 15.9 RATIO (10-20); Chloride 105 mmol/L (98-107); Creatinine, Serum 1.07 mg/dL (0.55-1.02); EST Glomerular Filtration Rate 53 mL/min (>60); Est Glom Filt Rate - Afr Amer 65 mL/min (>60); Estimated Creatinine Clearance 35.34 ml/min; Globulin 4.8 g/dL (2.2-4.2); Glucose 122 mg/dL (74-106); Lipase 34 U/L (13-75); Potassium 3.5 mmol/L (3.5-5.1); Protein, Total 8.5 g/dL (6.4-8.2); Sodium Level 140 mmol/L (136-145)
[2023-05-20 17:44] VITALS: BP 137/76; PULSE 104; RESP 18; O2SAT 93
== END 2023-05-20 18:12 | disposition home or self-care (01) ==
PROVIDERS: Physician Assistant; Emergency Provider Emergency Medicine; PCP Nurse Practitioner Family; Visit Provider Emergency Medicine
DX: R11.2 Nausea with vomiting, unspecified (principal); R19.7 Diarrhea, unspecified; E86.0 Dehydration
CPT/HCPCS: 80053; 83690; 85025; 96361; 96374; 96375; 99282; J7030; A4216; J2405; J3490

== ENCOUNTER 2023-08-11 19:40 | Emergency (ER) | payer MEDICARE, SELFPAY ==
[2023-08-11 19:41] VITALS: BP 151/90; PULSE 130; RESP 18; TEMP 36.4; O2SAT 98; BMI 30.2
[2023-08-11 19:58] LABS: Absolute Lymphocyte Count 0.72 X10^3/uL (0.83-4.51); Absolute Neutrophil Count 10.2 X10^3/uL (2.0-7.7); Basophil# 0.07 X10^3/uL; Basophil% 0.6 % (0-1); Eosinophil# 0.11 X10^3/uL; Eosinophils% 0.9 % (0-5); Hematocrit 47.4 % (37-47); Hemoglobin 15.5 g/dL (12.0-15.0); Lymphocyte # 0.72 X10^3/ul (0.83-4.51); Mean Corp Hgb Conc 32.7 g/dL (32-36); Mean Corpuscular Hgb 29.5 pg (27.0-32.0); Mean Corpuscular Volume 90.3 fL (81-99); Mean Platelet Vol. 9.3 fl (6.2-12.0); Monocyte# 0.74 X10^3/uL; Monocyte% 6.2 % (0-10); NRBC Flagged by Analyzer 0 % (0-5); Neutrophil # 10.22 X10^3/uL (2.7-7.7); Neutrophil % 85.8 % (47-70); Platelet Count 298 K/mm3 (150-450); RBC Distribution Width CV 13.5 % (11.6-14.6); RBC Distribution Width SD 45.1 fl (35.1-43.9); Red Blood Count 5.25 M/mm3 (4.2-5.4); White Blood Count 11.9 K/mm3 (4.4-11.0)
[2023-08-11 20:11] LABS: Anion Gap 6 (5-15); BUN 15 mg/dL (7-18); BUN/Creat Ratio 16.5 RATIO (10-20); Calcium,Total 9.7 mg/dL (8.5-10.1); Chloride 106 mmol/L (98-107); Creatinine, Serum 0.91 mg/dL (0.55-1.02); EST Glomerular Filtration Rate 64 mL/min (>60); Est Glom Filt Rate - Afr Amer 78 mL/min (>60); Estimated Creatinine Clearance 41.55 ml/min; Glucose 142 mg/dL (74-106); Potassium 3.8 mmol/L (3.5-5.1); Sodium Level 139 mmol/L (136-145)
[2023-08-11 21:51] LABS: Color, Urine Yellow (Yellow); Glucose, Dipstick Normal (Normal); Ketone-Dipstick 50 mg/dl (Negative); Leukocyte Esterase-Dipstick 100 /ul (Negative); Mucous, Urine 0 SEEN /hpf (<or=2+); Nitrite-Dipstick Negative (Negative); Occult Blood-Urine 50 /ul (Negative); Protein-Dipstick 100 mg/dl (Negative); Specific Gravity, Urine 1.025 (1.002-1.030); Urine Clarity Sl. Cloudy (Clear); Urine Urobilinogen 1 mg/dl (Normal)
[2023-08-11 22:08] LABS: Urine Bilirubin Dipstick 1 mg/dL (Negative)
[2023-08-11 22:09] LABS: White Blood Cells 0-5 SEEN /hpf (0-5)
[2023-08-11 22:10] LABS: Bacteria RARE /hpf (None Seen); Red Blood Cells-Urine 0-5 SEEN /hpf (0-5); Squamous Epithelial Cells - UA 0-5 SEEN /hpf (5-10)
[2023-08-11] MEDS: Ondansetron 4 MG/2 ML Vial IV (23:05)
[2023-08-11] MEDS: 0.9% Normal Saline (1000mL) 1,000 ML 1000 ML IV (23:05)
[2023-08-11 23:09] VITALS: BP 149/92; PULSE 115; RESP 16; O2SAT 98
--- NOTE | 2023-08-11 23:09 | EX.ED.DYSGE1 ---
HPI History of Present Illness Chief Complaint: Nausea/Vomiting Informant: patient and spouse/S.O. Narrative Narrative: Patient presents with nausea vomiting and abdominal discomfort. Patient states that she ate a sausage/sausage sandwich from the fair yesterday afternoon. Within an hour she had some cramping and diarrhea and nausea. But the vomiting really started in early this morning. She has vomited multiple times and cannot keep liquids down. She states that it hurts all across her abdomen but no back or flank pain. She has never seen blood. She states all her symptoms started shortly after eating the sandwich. She has a history of occasional food poisoning that will cause symptoms like this. Nothing specifically makes this better or worse other than trying to eat or drink. Patient's only medical problem is blood pressure and she takes lisinopril only. Atenolol is on her list but evidently she is not taking this now. Prior surgeries include appendectomy and total hysterectomy. She still has gallbladder. PFSH PFSH Home Medications atenolol 25 mg tablet (Tenormin) 25 mg PO DAILY 12/25/17 [History Last Taken Unknown] lisinopril 2.5 mg tablet 2.5 mg PO DAILY 12/25/17 [History Last Taken Unknown] ondansetron 4 mg disintegrating tablet 4 mg PO Q6H PRN nausea and vomiting #12 tabs 05/20/23 [Rx Last Taken Unknown] ondansetron 4 mg disintegrating tablet 4 mg PO Q8H PRN PRN Nausea #10 tabs 08/12/23 [Rx Last Taken Unknown] Allergy/AdvReac Type Severity Reaction Status Date / Time Tetanus Vaccines and Toxoid Allergy Swelling Verified 08/11/23 19:42 codeine AdvReac Nausea Verified 08/11/23 19:42 Sulfa (Sulfonamide AdvReac Nausea Verified 08/11/23 19:42 Antibiotics) Social History Smoking Status: Never smoker ROS ROS ED ROS Narrative A complete review of systems was performed and is negative except as documented in the history of present illness. Some specific details below. Constitutional: No recent fevers or chills. EYE: No change in eye color. ENT: No difficulty swallowing. No swelling. No pain. No GERD symptoms CV: No chest pain or palpitations. Respiratory: No dyspnea. No hemoptysis. No difficulty taking breaths. GI: Please see history of present illness. : No frequency dysuria or hematuria. Musculoskeletal: No recent trauma. No pains. Skin: No rash. Nondiaphoretic. Neuro: No weakness or numbness. Endocrine: No polyuria or polydipsia. EXAM Physical Exam Narrative Exam Narrative: CONSTITUTIONAL: Patient is nontoxic in appearance. The patient looks comfortable. HEENT: No notable trauma. Mucous membranes do look dry.. No sinus tenderness. No indication of pain with swallowing. EYES: No conjunctival injection. No proptosis. CARDIOVASCULAR: Mildly tachycardic rate. Regular rhythm. No notable murmur. No JVD. RESPIRATORY: No respiratory distress. Breathing is unlabored. No wheezes. No rhonchi. No rales. No pain with a deep breath. GASTROINTESTINAL: Not distended. Bowel sounds are normal. No focal tenderness. She does have some overall mild discomfort with palpation though. No guarding. No rebound. No palpable mass. No bruit. GENITOURINARY: No tenderness over the bladder. No CVA tenderness. MUSCULOSKELETAL: Atraumatic. No peripheral edema. No cord. No tenderness along the deep venous system. No asymmetry. NEUROLOGICAL: Patient is alert and appropriate. No focal deficit noted. SKIN: No noted rashes. No diaphoresis. PSYCHIATRIC: Patient is calm. Mood is appropriate. Const Vital Signs: 08/11/23 19:41 08/11/23 23:09 Temperature 97.6 F L Temperature Source Temporal Pulse Rate 130 H 115 H Respiratory Rate 18 16 Blood Pressure 151/90 H 149/92 H Blood Pressure Mean 110 111 Pulse Ox 98 98 Oxygen Delivery Method Room Air Room Air [facility] [place] Medical decision making narrative: Patient CBC shows minimal nonspecific elevation of her white count 11.9. Hemoglobin is a bit high at 15.5 which might be due to some mild dehydration and hemoconcentration. Platelets are normal. Patient's electrolytes show no marked abnormalities. BUN and creatinine are still preserved. Glucose was minimally up at 142. This can be rechecked. Liver function test were normal. Lipase was normal. Patient's urinalysis shows no convincing evidence of UTI. I rechecked the patient. She looks better. Her heart rate is down to about 92. She states she has a little bit of nausea left but overall she feels better the nausea is markedly improved and she would like some ice chips and water. We will get her some chips. I will give her small dose of Phenergan also. My independent interpretation of her CT shows no acute process in the final showed multiple chronic changes but no acute issue. Patient will go home. She is feeling better. She has had this before with food poisoning. It started immediately after a sausage that she bought at the fair but ate the next day. She is improving and I think outpatient treatment is appropriate. We did discuss reasons to bring her back. Lab Data Attestation: I reviewed the patient's lab results. Labs: Laboratory Results - last 24 hr 08/11/23 08/11/23 19:45 21:45 WBC 11.9 H RBC 5.25 Hgb 15.5 H Hct 47.4 H MCV 90.3 MCH 29.5 MCHC 32.7 RDW Std Deviation 45.1 H RDW Coeff of Mack 13.5 Plt Count 298 MPV 9.3 Immature Gran % (Auto) 0.500 Neut % (Auto) 85.8 H Lymph % (Auto) 6.0 L [place] % (Auto) 6.2 Eos % (Auto) 0.9 Baso % (Auto) 0.6 Absolute Neuts (auto) 10.2 H Absolute Lymphs (auto) 0.72 L Nucleated RBC % 0 Sodium 139 Potassium 3.8 Chloride 106 Carbon Dioxide 27.0 Anion Gap 6 BUN 15 Creatinine 0.91 Estim Creat Clear Calc 41.55 Est GFR (MDRD) Af Amer 78 Est GFR (MDRD) Non-Af 64 BUN/Creatinine Ratio 16.5 Glucose 142 H Calcium 9.7 Total Bilirubin 0.60 Direct Bilirubin 0.16 AST 50 H ALT 55 Alkaline Phosphatase 107 Total Protein 8.1 Albumin 3.8 Globulin 4.3 H Lipase 43 Urine Color Yellow Urine Clarity Sl. Cloudy Urine pH 5.0 Ur Specific [place] 1.025 Urine Protein 100 H Urine Glucose (UA) Normal Urine Ketones 50 H Urine Occult Blood 50 H Urine Nitrite Negative Urine Bilirubin 1 H Urine Urobilinogen 1 H Ur Leukocyte Esterase 100 H Urine RBC 0-5 SEEN Urine WBC 0-5 SEEN Ur Squamous Epith Cells 0-5 SEEN Urine Bacteria RARE Urine Mucus 0 SEEN Radiography Diagnostic Testing: Clinical Impression(s) from Imaging Studies Abdomen/Pelvis CT 08/11/23 23:45 IMPRESSION: Cardiomegaly. Chronic unchanged right hepatic hemangioma. Nonobstructive right nephrolithiasis Aortic atherosclerosis with infrarenal aneurysmal dilatation at 2.2 cm. Electronically Signed: Nathaniel Bravo MD at 0:32 EDT , Discharge Plan Triage Chief Complaint: Nausea/Vomiting ED Provider: Mitchell Trinh Dx/Rx/DC Orders Clinical Impression: Nausea vomiting and diarrhea, Adverse reaction to food, Dehydration, mild Instructions: ED Diet Vomiting Diarrhea Prescriptions: New ondansetron [ondansetron] 4 mg tablet,disintegrating 4 mg PO Q8H PRN PRN (Reason: Nausea) Qty: 10 0RF No Action atenolol [Tenormin] 25 MG tablet 25 mg PO DAILY lisinopril 2.5 MG tablet 2.5 mg PO DAILY ondansetron 4 mg tablet,disintegrating 4 mg PO Q6H PRN (Reason: nausea and vomiting) Qty: 12 0RF Primary Care Provider: Johanne Callahan Referrals: Johanne Callahan, PHYSICAL EDUCATION DEPARTMENT CHAIR-C [Primary Care Provider] - 1-2 Days if not improving Disposition Disposition: Home, Self Care
--- NOTE | 2023-08-11 23:11 | EKG12_ITS ---
Test Reason : Blood Pressure : / mmHG Vent. Rate : 112 BPM Atrial Rate : 112 BPM P-R Int : 120 ms QRS Dur : 128 ms QT Int : 366 ms P-R-T Axes : 038 -26 -12 degrees QTc Int : 499 ms Sinus tachycardia Possible Left atrial enlargement Right bundle branch block Abnormal ECG When compared with ECG of 21-MAR-2019 17:17, Right bundle branch block is now Present Confirmed by VIKKI COLLINS, DHIRAJ ([id number]), scientific publications editor ARIC THOMAS ([id number]) on 08/16/2023 10:27:15 AM Referred By: Confirmed By:DHIRAJ FLOREZ MD
[2023-08-11 23:12] LABS: Lipase 43 U/L (13-75)
[2023-08-11 23:16] LABS: AST(SGOT) 50 U/L (15-37); Alanine Aminotransfer ALT/SGPT 55 U/L (13-56); Albumin, Serum 3.8 g/dL (3.2-5.0); Alkaline Phosphatase 107 U/L (45-117); Bilirubin, Direct 0.16 mg/dL (0.00-0.30); Globulin 4.3 g/dL (2.2-4.2); Protein, Total 8.1 g/dL (6.4-8.2)
--- NOTE | 2023-08-11 23:45 | CT_ITS ---
INDICATION: abd pain EXAMINATION: CT ABDOMEN AND PELVIS WITH CONTRAST - CT Abdomen And Pelvis W/ Contrast Injection TECHNIQUE: Helically acquired images were obtained of the abdomen and pelvis following IV contrast. A radiation dose optimization technique was used for this scan. IV Contrast dosage and agent: 100 mL Isovue-370 Oral contrast: None. COMPARISON: March 11, 2019, December 25, 2017. FINDINGS: LOWER CHEST: Cardiomegaly. Small hiatal hernia with subcentimeter inferior mediastinal lymph nodes. LIVER: Posterior right hepatic 2.1 cm hemangioma, unchanged in size from December 25, 2017. No focal mass. GALLBLADDER AND BILIARY TREE: No calcified gallstones. No gallbladder distension or wall edema. No intra- or extrahepatic biliary ductal dilation. PANCREAS: No focal cystic or solid mass. SPLEEN: Normal size without focal cystic or solid mass. ADRENAL GLANDS: No nodules. KIDNEYS AND URETERS: 2 3 mm nonobstructive right renal stones. Small bilateral renal hypodensities are too small to characterize but commonly cysts, no specific imaging follow-up required. No perinephric inflammation. No hydronephrosis. Unremarkable ureters and bladder. . PERITONEUM: No ascites or free air. No other fluid collection. BOWEL: No bowel distention or focal wall thickening. Distal small bowel surgical change. Absent appendix. Distal colonic diverticulosis without evidence of diverticulitis. LYMPH NODES: No enlarged mesenteric or retroperitoneal lymph nodes VESSELS: Aortic atherosclerosis with mild infrarenal ectasia to 2.2 cm.. URINARY BLADDER: Unremarkable. REPRODUCTIVE ORGANS: Absent uterus. No evidence of adnexal mass.. ABDOMINAL WALL: Fat-containing umbilical hernia without inflammation. BONES: No lytic or blastic abnormality. L4-[address]/Abdomen/Pelvis W IV Cont ONLY IMPRESSION: Cardiomegaly. Chronic unchanged right hepatic hemangioma. Nonobstructive right nephrolithiasis Aortic atherosclerosis with infrarenal aneurysmal dilatation at 2.2 cm. Electronically Signed: Nathaniel Bravo MD at 0:32 EDT ,
[2023-08-12] MEDS: proMETHazine 25 MG/ML Syringe 6.25 MG IM (00:41)
[2023-08-12 00:44] VITALS: PULSE 107
== END 2023-08-12 01:32 | disposition home or self-care (01) ==
PROVIDERS: Emergency Provider Emergency Medicine; PCP Nurse Practitioner Family; Visit Provider Emergency Medicine
DX: R11.2 Nausea with vomiting, unspecified (principal); R19.7 Diarrhea, unspecified; E86.0 Dehydration
CPT/HCPCS: 74177; 80048; 80076; 81001; 83690; 85025; 93005; 96361; 96372; 96374; 99283; J7030; Q9967; A4216; J2405

== ENCOUNTER → 2023-11-21 | Outpatient (CLI) | payer MEDICARE, SELFPAY ==
[2023-11-21 12:13] LABS: Absolute Lymphocyte Count 1.09 X10^3/uL (0.83-4.51); Absolute Neutrophil Count 4.2 X10^3/uL (2.0-7.7); Basophil# 0.08 X10^3/uL; Basophil% 1.3 % (0-1); Eosinophil# 0.18 X10^3/uL; Eosinophils% 2.9 % (0-5); Hematocrit 47.2 % (37-47); Lymphocyte # 1.09 X10^3/ul (0.83-4.51); Lymphocyte % 17.8 % (19-41); Mean Corp Hgb Conc 31.8 g/dL (32-36); Mean Corpuscular Volume 91.1 fL (81-99); Mean Platelet Vol. 9.5 fl (6.2-12.0); Monocyte# 0.53 X10^3/uL; Monocyte% 8.7 % (0-10); NRBC Flagged by Analyzer 0 % (0-5); Neutrophil # 4.22 X10^3/uL (2.7-7.7); Platelet Count 300 K/mm3 (150-450); RBC Distribution Width CV 13.8 % (11.6-14.6); RBC Distribution Width SD 46.7 fl (35.1-43.9); Red Blood Count 5.18 M/mm3 (4.2-5.4); White Blood Count 6.1 K/mm3 (4.4-11.0)
[2023-11-21 12:16] LABS: Color, Urine Yellow (Yellow); Glucose, Dipstick Normal (Normal); Ketone-Dipstick Negative (Negative); Leukocyte Esterase-Dipstick 25 /ul (Negative); Nitrite-Dipstick Negative (Negative); Occult Blood-Urine 10 /ul (Negative); Protein-Dipstick Negative (Negative); Specific Gravity, Urine 1.015 (1.002-1.030); Urine Bilirubin Dipstick Negative (Negative); Urine Clarity Clear (Clear); Urine Urobilinogen Normal (Normal)
[2023-11-21 12:36] LABS: Vitamin D,25 Hydroxy 16.4 ng/mL
[2023-11-21 12:55] LABS: ALB/GLOB Ratio 0.9 RATIO (0.9-2.4); AST(SGOT) 18 U/L (15-37); Alanine Aminotransfer ALT/SGPT 20 U/L (13-56); Albumin, Serum 3.5 g/dL (3.2-5.0); Alkaline Phosphatase 79 U/L (45-117); Anion Gap 6 (5-15); BUN 20 mg/dL (7-18); BUN/Creat Ratio 25.2 RATIO (10-20); Chloride 106 mmol/L (98-107); Cholesterol 251 mg/dL (200); Creatinine, Serum 0.79 mg/dL (0.55-1.02); EST Glomerular Filtration Rate 75 mL/min (>60); Est Glom Filt Rate - Afr Amer 91 mL/min (>60); Glucose 88 mg/dL (74-106); High Density Lipoprotein 60 mg/dL; Potassium 4.2 mmol/L (3.5-5.1); Protein, Total 7.5 g/dL (6.4-8.2); Sodium Level 138 mmol/L (136-145); Triglycerides 192 mg/dL; Very Low Density Lipoprotein 38 mg/dL (5-40)
== END | disposition home or self-care (01) ==
LOC: MTLAB 09:47
PROVIDERS: PCP Nurse Practitioner Family; Referring Provider Nurse Practitioner Family; Visit Provider Nurse Practitioner Family
DX: E78.5 Hyperlipidemia, unspecified (principal); I10 Essential (primary) hypertension; E55.9 Vitamin D deficiency, unspecified; D72.819 Decreased white blood cell count, unspecified
CPT/HCPCS: 36415; 80053; 80061; 81002; 82306; 84443; 85025

== ENCOUNTER 2024-03-13 12:04 | Emergency (ER) | payer MEDICARE, SELFPAY ==
[2024-03-13 12:05] VITALS: BP 172/112; PULSE 100; RESP 18; TEMP 36.9; O2SAT 96; BMI 32.1
[2024-03-13 12:07] VITALS: BP 172/112; PULSE 100; RESP 18; TEMP 36.9; O2SAT 96
--- NOTE | 2024-03-13 12:22 | CT_ITS ---
STUDY: CT ABDOMEN AND PELVIS WITHOUT CONTRAST REASON FOR EXAM: Female, 73 years old. Right flank pain. Pain with urination. History of kidney stones. RADIATION DOSAGE (If Supplied By Facility): CTDIvol = ( 13.39 ) mGy, DLP = ( 665.52 ) mGycm TECHNIQUE: Transaxial images were obtained from the dome of the diaphragm to the symphysis pubis without oral contrast, and without intravenous contrast. Sagittal and coronal images were reconstructed. Individualized dose optimization techniques were used for this CT. COMPARISON: Comparison is made with prior study August 11, 2023. FINDINGS: Findings suggestive of a mild scarring at the left lung base. Coronary artery calcification. There is a 3.6 cm x 2.4 cm hypodense nodule in the peripheral posterior aspect of the right lobe of the liver superiorly. This was demonstrated to be a small hemangioma. This is essentially unchanged. Normal gallbladder and extrahepatic biliary system. Normal spleen. Normal pancreas. There is a small, circumscribed, smooth, low attenuation left adrenal mass, consistent with an adrenal adenoma. This measures 9.3 mm. Normal right adrenal gland. Several nonobstructive calculi are seen in the right kidney. The largest is in the lower pole and measures 4.1 mm. There is evidence of a focal scar in the upper pole of the right kidney. Several left intrarenal calculi. The largest calculus measures 5 mm. There is a moderate-sized hiatal hernia. Normal small intestine. There are multiple colonic diverticula consistent with diverticulosis. There are surgical clips in the region of the appendix consistent with a prior appendectomy. There is diffuse atherosclerotic calcification of the abdominal aorta, without a demonstrated aneurysm. Normal inferior vena cava. Normal retroperitoneum. Normal urinary bladder. There is absence of the uterus consistent with a prior hysterectomy. Normal abdominal wall. There are diffuse degenerative changes of the visualized lumbar spine. Levoscoliosis. Prior L4 and L5 laminectomy. CT/Abdomen/Pelvis without Cont IMPRESSION: Stable examination. Multiple nonobstructive bilateral intrarenal calculi. Electronically Signed: Tylor Amor MD at 13:41 EDT ,
--- NOTE | 2024-03-13 12:23 | EDS_ITS ---
HPI HPI - GI History of Present Illness Chief Complaint: Flank Pain Narrative Narrative: History and physical is limited secondary to patient condition, she is vomiting. 73-year-old female presents with her daughter because of sudden onset of right flank pain similar to her previous kidney stones. She has past medical history of ureterolithiasis but does not follow-up with urology any longer, also has hypertension. Daughter states that 45 minutes to an hour prior to arrival she developed this right low back pain/right flank pain. She denies any fever or chills, and has been vomiting and dry heaving. No dysuria or hematuria. [facility] Medical History (Updated 03/13/24 @ 14:03 by Stas Dukes MD) Hypertension Kidney stone Urolithiasis Home Medications atenolol 25 mg tablet (Tenormin) 25 mg PO DAILY 12/25/17 [History Last Taken Unknown] lisinopril 2.5 mg tablet 2.5 mg PO DAILY 12/25/17 [History Last Taken Unknown] ondansetron 4 mg disintegrating tablet 4 mg PO Q6H PRN nausea and vomiting #12 tabs 05/20/23 [Rx Last Taken Unknown] ondansetron 4 mg disintegrating tablet 4 mg PO Q8H PRN PRN Nausea #10 tabs 08/12/23 [Rx Last Taken Unknown] ondansetron 4 mg disintegrating tablet 4 mg PO Q8H PRN PRN Nausea #12 tabs 03/13/24 [Rx Last Taken Unknown] Allergy/AdvReac Type Severity Reaction Status Date / Time Tetanus Vaccines and Toxoid Allergy Swelling Verified 03/13/24 12:05 codeine AdvReac Nausea Verified 03/13/24 12:05 Sulfa (Sulfonamide AdvReac Nausea Verified 03/13/24 12:05 Antibiotics) Social History Smoking Status: Never smoker ROS ROS ED ROS Narrative Constitutional: No fever, no chills. HEENT: No sore throat. No neck pain. No loss of vision. No rhinorrhea. Cardiovascular: No chest pain. No palpitations. No pedal edema. Respiratory: No cough, no shortness of breath. Abdominal: No abdominal pain. Positive nausea and vomiting. Genitourinary: No dysuria. No hematuria. Positive right flank pain. Musculoskeletal: No myalgias. No arthralgias. Neurologic: No headaches. No dizziness. No lightheadedness. Skin: No rash. No change in color. Psychiatric: No depression. No anxiety. EXAM Physical Exam Narrative Exam Narrative: Afebrile. Vital signs noted. HEENT: Normocephalic. Atraumatic. PERRL, EOMI. Neck soft and supple. No point tenderness or step off. Cardiovascular: Regular rate and rhythm. No murmurs, rubs, or gallops appreciated. Respiratory: No tachypnea. Lungs clear to auscultation bilaterally. Gastrointestinal: Abdomen soft, nontender, with normoactive bowel sounds. No rebound or guarding. Tenderness to percussion right CVA area/low back. Neurological: Awake. Alert. Nonfocal, nonlateralizing. Skin: No rash. Normal color. No pallor. Musculoskeletal: No pedal edema. Full range of motion extremities. Const Vital Signs: 03/13/24 12:05 03/13/24 12:07 03/13/24 13:12 Temperature 98.4 F 98.4 F 98.5 F Temperature Source Temporal Temporal Temporal Pulse Rate 100 100 102 H Respiratory Rate 18 18 18 Blood Pressure 172/112 H 172/112 H 132/80 H Blood Pressure Mean 132 132 97 Pulse Ox 96 96 91 Oxygen Delivery Method Room Air Room Air Room Air 03/13/24 14:04 03/13/24 14:22 Temperature 98.3 F Temperature Source Pulse Rate 97 88 Respiratory Rate 16 16 Blood Pressure 132/80 H 145/80 H Blood Pressure Mean 97 101 Pulse Ox 95 97 Oxygen Delivery Method Room Air MDM MDM MDM Narrative Medical decision making narrative: In the differential diagnosis is pyelonephritis versus ureterolithiasis. I have low suspicion for colitis or obstruction currently. I do feel CT imaging is indicated without contrast. She was administered morphine and ondansetron and bolused normal saline then run at 250 mL/h. CBC, BMP, and urinalysis will be obtained. I reviewed her laboratory work and she has normal white count of 8.9, hemoglobin slightly hemoconcentrated at 15.3 with hematocrit 48.3, normal platelet count of 277. Electrolyte panel is significant for chloride of 110 which I think is nonspecific, normal BUN of 14 and creatinine 0.83. While glucose is elevated at 132 she has a normal anion gap of 5. Urinalysis obtained and is negative for infection with 0 bacteria and 0-5 RBCs, 0-5 WBCs. I do not feel antibiotics are indicated. I reviewed the radiology report of the CT flank which shows no acute process, no reason for her right flank pain. While she does have renal stones, there is no evidence of an obstructing stone. No acute process, radiology reports stable examination.. Upon repeat examination, she is not vomiting and feels improved. I feel she can be discharged safely home with follow-up. She was written a prescription for 12 Zofran ODT's which she had been prescribed previously. I also referred her to the urologist on-call, Dr. Becca Diaz. Return instructions were reviewed. Disposition is discharged home in stable condition. History & Record Review Discussion w/independent historian: Patient Lab Data Attestation: I reviewed the patient's lab results. Labs: Laboratory Results - last 24 hr 03/13/24 03/13/24 12:32 13:00 WBC 8.9 RBC 5.28 Hgb 15.3 H Hct 48.3 H MCV 91.5 MCH 29.0 MCHC 31.7 L RDW Std Deviation 45.4 H RDW Coeff of Mack 13.4 Plt Count 277 MPV 9.6 Immature Gran % (Auto) 0.400 Neut % (Auto) 81.8 H Lymph % (Auto) 10.5 L [place] % (Auto) 5.6 Eos % (Auto) 0.9 Baso % (Auto) 0.8 Absolute Neuts (auto) 7.3 Absolute Lymphs (auto) 0.93 Nucleated RBC % 0 Sodium 141 Potassium 4.1 Chloride 110 H Carbon Dioxide 26.0 Anion Gap 5 BUN 14 Creatinine 0.83 Estim Creat Clear Calc 55.86 Est GFR (MDRD) Af Amer 87 Est GFR (MDRD) Non-Af 72 BUN/Creatinine Ratio 16.9 Glucose 132 H Calcium 9.5 Urine Color Yellow Urine Clarity Clear Urine pH 7.0 Ur Specific [place] 1.015 Urine Protein 30 H Urine Glucose (UA) Normal Urine Ketones Negative Urine Occult Blood 25 H Urine Nitrite Negative Urine Bilirubin Negative Urine Urobilinogen Normal Ur Leukocyte Esterase 25 H Urine RBC 0-5 SEEN Urine WBC 0-5 SEEN Ur Squamous Epith Cells 0-5 SEEN Urine Bacteria 0 SEEN Urine Mucus 0 SEEN Radiography Diagnostic Testing: Clinical Impression(s) from Imaging Studies Abdomen/Pelvis CT 03/13/24 12:22 IMPRESSION: Stable examination. Multiple nonobstructive bilateral intrarenal calculi. Electronically Signed: Tylor Amor MD at 13:41 EDT , Discharge Plan Triage Chief Complaint: Flank Pain ED Provider: Stas Dukes Dx/Rx/DC Orders Clinical Impression: Acute right flank pain, Nausea and vomiting Instructions: ED Flank Pain, Uncertain Cause, ED Vomiting (Adult) Prescriptions: New ondansetron 4 mg tablet,disintegrating 4 mg PO Q8H PRN PRN (Reason: Nausea) Qty: 12 0RF No Action atenolol [Tenormin] 25 MG tablet 25 mg PO DAILY lisinopril 2.5 MG tablet 2.5 mg PO DAILY ondansetron 4 mg tablet,disintegrating 4 mg PO Q6H PRN (Reason: nausea and vomiting) Qty: 12 0RF ondansetron [ondansetron] 4 mg tablet,disintegrating 4 mg PO Q8H PRN PRN (Reason: Nausea) Qty: 10 0RF Primary Care Provider: Johanne Callahan Referrals: Becca Diaz MD [Med Staff - Active Staff] - As soon as possible Johanne Callahan, TRANSACTION PROCESSOR-C [Primary Care Provider] - 3-5 Days if not improving Activity Restrictions/Additional Instructions: Clear liquid diet and advance as tolerated. Follow-up with urology regarding your renal stones when possible. Return with increased pain, new or worsening symptoms. Disposition Disposition: Home, Self Care Discharge Date/Time: 03/13/24 14:23
[2024-03-13 12:54] LABS: Absolute Lymphocyte Count 0.93 X10^3/uL (0.83-4.51); Absolute Neutrophil Count 7.3 X10^3/uL (2.0-7.7); Basophil# 0.07 X10^3/uL; Basophil% 0.8 % (0-1); Eosinophil# 0.08 X10^3/uL; Eosinophils% 0.9 % (0-5); Hematocrit 48.3 % (37-47); Hemoglobin 15.3 g/dL (12.0-15.0); Lymphocyte # 0.93 X10^3/ul (0.83-4.51); Lymphocyte % 10.5 % (19-41); Mean Corp Hgb Conc 31.7 g/dL (32-36); Mean Corpuscular Volume 91.5 fL (81-99); Mean Platelet Vol. 9.6 fl (6.2-12.0); Monocyte% 5.6 % (0-10); NRBC Flagged by Analyzer 0 % (0-5); Neutrophil # 7.27 X10^3/uL (2.7-7.7); Neutrophil % 81.8 % (47-70); Platelet Count 277 K/mm3 (150-450); RBC Distribution Width CV 13.4 % (11.6-14.6); RBC Distribution Width SD 45.4 fl (35.1-43.9); Red Blood Count 5.28 M/mm3 (4.2-5.4); White Blood Count 8.9 K/mm3 (4.4-11.0)
[2024-03-13] MEDS: Ondansetron 4 MG/2 ML Vial IV (12:54)
[2024-03-13] MEDS: Morphine 4 MG/ML Syringe IV (12:54)
[2024-03-13] MEDS: 0.9% Normal Saline (1000mL) 1,000 ML 999 ML IV (12:54)
[2024-03-13 13:07] LABS: Anion Gap 5 (5-15); BUN 14 mg/dL (7-18); BUN/Creat Ratio 16.9 RATIO (10-20); Calcium,Total 9.5 mg/dL (8.5-10.1); Chloride 110 mmol/L (98-107); Creatinine, Serum 0.83 mg/dL (0.55-1.02); EST Glomerular Filtration Rate 72 mL/min (>60); Est Glom Filt Rate - Afr Amer 87 mL/min (>60); Estimated Creatinine Clearance 55.86 ml/min; Glucose 132 mg/dL (74-106); Potassium 4.1 mmol/L (3.5-5.1); Sodium Level 141 mmol/L (136-145)
[2024-03-13 13:12] VITALS: BP 132/80; PULSE 102; RESP 18; TEMP 36.9; O2SAT 91
[2024-03-13 13:15] LABS: Bacteria 0 SEEN /hpf (None Seen); Mucous, Urine 0 SEEN /hpf (<or=2+)
[2024-03-13 13:30] LABS: Color, Urine Yellow (Yellow); Glucose, Dipstick Normal (Normal); Ketone-Dipstick Negative (Negative); Leukocyte Esterase-Dipstick 25 /ul (Negative); Nitrite-Dipstick Negative (Negative); Occult Blood-Urine 25 /ul (Negative); Protein-Dipstick 30 mg/dl (Negative); Specific Gravity, Urine 1.015 (1.002-1.030); Urine Bilirubin Dipstick Negative (Negative); Urine Clarity Clear (Clear); Urine Urobilinogen Normal (Normal)
[2024-03-13 13:45] LABS: Red Blood Cells-Urine 0-5 SEEN /hpf (0-5); Squamous Epithelial Cells - UA 0-5 SEEN /hpf (5-10); White Blood Cells 0-5 SEEN /hpf (0-5)
[2024-03-13 14:04] VITALS: BP 132/80; PULSE 97; RESP 16; O2SAT 95
[2024-03-13 14:22] VITALS: BP 145/80; PULSE 88; RESP 16; TEMP 36.8; O2SAT 97
== END 2024-03-13 14:23 | disposition home or self-care (01) ==
PROVIDERS: Emergency Provider Emergency Medicine; PCP Nurse Practitioner Family; Visit Provider Emergency Medicine
DX: R10.9 Unspecified abdominal pain (principal); R11.2 Nausea with vomiting, unspecified
CPT/HCPCS: 74176; 80048; 81001; 85025; 96361; 96374; 96375; 99283; A4216; J2405

== ENCOUNTER → 2024-03-26 | Outpatient (CLI) | payer MEDICARE, SELFPAY | END | disposition home or self-care (01) | LOC: LABSPEC 10:27 | PROVIDERS: PCP Nurse Practitioner Family; Visit Provider Internal Medicine Nephrology | DX: R30.0 Dysuria (principal) | CPT/HCPCS: 87077; 87086; 87088; 87186 ==

== ENCOUNTER 2024-04-19 10:11 | Day surgery (SDC) | payer MEDICARE, SELFPAY ==
[2024-04-19] VITALS (7 sets, daily range): BP systolic 108–146; BP diastolic 57–91; PULSE 91–123; RESP 16; TEMP 36.6–36.8; O2SAT 94–98; BMI 30.6
[2024-04-19] MEDS: Lactated Ringers 1,000 ML 15 ML IV (10:54)
--- NOTE | 2024-04-19 12:30 | OP.PCM_ITS ---
Report of Operation Date of Procedure: 04/19/24 Pre-Operative Diagnosis: right distal ureteral stone Surgery/Procedure Performed:: cystoscopy, retrograde pyelogram, right ureteroscopy Surgeon: Becca Diaz Type of Anesthesia: General Grafts/Implants Used: 4.5Fr x 22cm JJ stent Complications none Admit VTE Documentation VTE Present on Admission: Yes VTE Mechan Device Prophylaxis: SCD's VTE Pharm Prophylaxis ordered?: No Reason prophylaxis not ordered:: Treatment Not Indicated
--- NOTE | 2024-04-19 12:30 | PCM.OPRPT ---
Report of Operation Date of Procedure: 04/19/24 Pre-Operative Diagnosis: right distal ureteral stone Post-Operative Diagnosis: Same, passed Surgery/Procedure Performed:: cystoscopy, retrograde pyelogram, right ureteroscopy Surgeon: Becca Diaz Type of Anesthesia: General Description of Procedure: The patient is a 73-year-old female with a longstanding history of stones who presented to the emergency room with flank pain approximately 4 weeks ago. On the [address] scan I appreciated a calcification in the area of the right distal ureter. She presents for further evaluation. Informed consent was obtained. She was taken to the operating room and placed on the operating room table. Anesthesia monitored the head, neck, airway, IV access and vital signs throughout the case. Once anesthesia was appropriately administered, she was placed into dorsolithotomy position and was prepped and draped in usual sterile fashion. The cystoscope was inserted through the urethra under direct visualization into the urinary bladder. The duplicated ureteral system was evaluated with the retrograde pyelogram and each ureteral orifice revealing no evidence of dilation, foreign body or filling defect. A semirigid ureteroscope was then used to gently cannulate the lateral ureteral orifice with the help of a Glidewire and it advanced easily to the proximal ureter without any findings. The medial ureter was narrow where and I could only directly visualize the distal ureter which also had no findings. Contrast was once again injected through the ureteroscope with no evidence of filling defect or dilation. The patient's bladder was then emptied and the case was terminated. She was awakened and taken to the recovery room in good condition. Grafts/Implants Used: 4.5Fr x 22cm JJ stent Complications none Admit VTE Documentation VTE Present on Admission: Yes VTE Mechan Device Prophylaxis: SCD's VTE Pharm Prophylaxis ordered?: No Reason prophylaxis not ordered:: Treatment Not Indicated
--- NOTE | 2024-04-19 12:31 | DCINST_ITS ---
Discharge Instructions Diet Discharge Diet: No restrictions Activity Discharge Activity: Return to Normal Activity Dressing / Incision Call your doctor if you observe: Fever of 101 or Higher, Inability to urinate and Inability to have a bowel movement Follow Up Care Please Follow Up With: Becca Diaz MD When: the office will call her for follow up arrangements Test Results: Test results from this visit will be discussed in further detail at your follow- up appointment, if applicable. Discharge Plan Admission Attending Provider: Becca Diaz Primary Care Provider: Johanne Callahan Instructions Print Language: Romansh Discharge Orders/Prescriptions Prescriptions: Continued lisinopril 10 mg tablet 10 mg PO DAILY Referrals / Follow Up: Johanne Callahan, BANKRUPTCY LEGAL ASSISTANT-C [Primary Care Provider] - Disposition Disposition (needs filled in before D/C Order can be placed): Home, Self Care
== END 2024-04-19 14:42 | disposition home or self-care (01) ==
LOC: SDC 10:12 → AC 10:13
PROVIDERS: PCP Nurse Practitioner Family; Referring Provider Urology; Visit Provider Urology
PROC: 0TJ98ZZ Inspection of Ureter, Via Natural or Artificial Opening Endoscopic (ICD-10-PCS; CPT 52352; principal; 2024-04-19 11:50)
DX: R10.9 Unspecified abdominal pain (principal); Z87.442 Personal history of urinary calculi; I10 Essential (primary) hypertension; Z79.899 Other long term (current) drug therapy
CPT/HCPCS: 52351; 76000; J7120; J2405

== ENCOUNTER 2024-08-04 14:58 | Observation (INO) | payer MEDICARE, SELFPAY ==
[2024-08-04] VITALS (10 sets, daily range): BP systolic 108–154; BP diastolic 65–100; PULSE 74–132; RESP 16–23; TEMP 36.1–37.1; O2SAT 81–97; BMI 30.2; BMI 30.4
--- NOTE | 2024-08-04 15:41 | EKG12_ITS ---
Test Reason : Blood Pressure : / mmHG Vent. Rate : 121 BPM Atrial Rate : 121 BPM P-R Int : 128 ms QRS Dur : 118 ms QT Int : 326 ms P-R-T Axes : 035 -25 -12 degrees QTc Int : 462 ms Sinus tachycardia Right bundle branch block Inferior infarct , age undetermined Abnormal ECG Confirmed by VIKKI COLLINS, DHIRAJ ([id number]), movie editor DIONY MONROY ([id number]) on 08/05/2024 2:50:11 PM Referred By: Confirmed By:DHIRAJ FLOREZ MD
[2024-08-04] MEDS: 0.9% Normal Saline (1000mL) 1,000 ML 1000 ML IV (15:51)
[2024-08-04] MEDS: Ondansetron 4 MG/2 ML Vial IV ×2 (15:52→19:36)
[2024-08-04 16:03] LABS: Hematocrit 46.5 % (37-47); Hemoglobin 14.9 g/dL (12.0-15.0); Mean Corpuscular Hgb 29.4 pg (27.0-32.0); Mean Corpuscular Volume 91.9 fL (81-99); Mean Platelet Vol. 9.5 fl (6.2-12.0); POSITIVE DIFFERENTIAL YES; POSITIVE MORPHOLOGY YES; Platelet Count 321 K/mm3 (150-450); RBC Distribution Width CV 13.9 % (11.6-14.6); Red Blood Count 5.06 M/mm3 (4.2-5.4); White Blood Count 16.5 K/mm3 (4.4-11.0)
--- NOTE | 2024-08-04 16:19 | CT_ITS ---
INDICATION: abd pain, fever, vomiting EXAMINATION: CT Abdomen And Pelvis W/ Contrast Injection TECHNIQUE: Helically acquired images were obtained of the abdomen and pelvis after IV contrast. A radiation dose optimization technique was used for this scan. IV Contrast dosage and agent: IV 100mL [id number]-[id number] Oral contrast: None. COMPARISON: 03/13/2024 FINDINGS: Visualized lung bases: Unremarkable Liver: 2.9 cm hemangioma in the right hepatic lobe. Gallbladder: Unremarkable Spleen: Unremarkable Pancreas: Unremarkable Adrenal Glands: Unremarkable Kidneys: Scattered too small to characterize subcentimeter hypodensities bilaterally. Few bilateral nonobstructing renal calculi. Vasculature: Moderate aortoiliac atherosclerotic disease. GI Tract: Hiatal hernia. Mild wall thickening of the gastroesophageal junction. Scattered colonic diverticula. Lymphadenopathy: None Peritoneum: No ascites. Bladder: Mild circumferential wall thickening with subtle surrounding inflammatory changes. Reproductive organs: Status post hysterectomy. Bones/Soft tissues: There are diffuse degenerative changes of the spine. CT/Abdomen/Pelvis W IV Cont ONLY IMPRESSION: Findings suspicious for possible cystitis. Correlate with urinalysis. Mild wall thickening of the GE junction could represent esophagitis. Cannot rule out malignancy. Consider esophagram. Hiatal hernia. Few bilateral nonobstructing renal calculi. 3 cm hepatic hemangioma. Electronically Signed: Kye Giles MD at 17:17 EDT ,
--- NOTE | 2024-08-04 16:21 | EX.ED.DYSGE1 ---
HPI History of Present Illness Chief Complaint: Complaint Informant: patient Narrative Narrative: Patient is a 73-year-old female presenting with dysuria, vomiting, fever and generalized malaise. She started having symptoms about 2 days ago and has been vomiting since yesterday. She states there is no blood in her vomit and it just yellow at this point. Had a fever of 101.7. States that her stomach hurts but attributes that more to just vomiting. Denies any pain in her back. States he had a normal bowel movement this morning. She went to [facility] express care today and they told her she had a urinary tract infection but due to her symptoms he did have blood work did not call any prescriptions in. They decided come here. She denies any recent URI symptoms, dizziness or lightheadedness. Notes she has some mild phlegm in her throat today. Does have a history of kidney stones but states this feels different. No other complaints or concerns reported at this time. Reports history of appendectomy and hysterectomy. [facility] Medical History Post-menopausal Anemia Easy bruising Migraine headache Injury of head and neck Non-smoker Urolithiasis Hypertension Home Medications ?Medication ?Instructions ?Recorded ?Last Taken ?Type lisinopril 10 mg tablet 10 mg PO DAILY 04/18/24 08/03/24 History Allergy/AdvReac Type Severity Reaction Status Date / Time Tetanus Vaccines and Toxoid Allergy Swelling Verified 08/04/24 15:14 codeine AdvReac Nausea Verified 08/04/24 15:14 Sulfa (Sulfonamide AdvReac Nausea Verified 08/04/24 15:14 Antibiotics) Surgical History Hx of colonoscopy History of ureteroscopy Hx of appendectomy Hx of discectomy Hx of hysterectomy Hx of cystoscopy Social History Smoking Status: Never smoker ROS ROS ED Constitutional Constitutional ED: Reports chills and fever(s) Cardiovascular Cardiovascular: Denies chest pain Respiratory/Chest Respiratory/Chest: Denies cough or dyspnea Gastrointestinal Gastrointestinal: Reports abdominal pain, nausea and vomiting; Denies constipation or diarrhea Genitourinary Genitourinary ED: Reports dysuria; Denies hematuria Musculoskeletal Musculoskeletal: Denies arthralgias, back pain or myalgias Integumentary Denies rash Neurologic Neurologic: Denies weakness Hematologic/Lymphatic Hematologic/Lymphatic: Denies easy bleeding or easy bruising EXAM Physical Exam Const Vital Signs: 08/04/24 14:59 08/04/24 16:38 08/04/24 17:40 Temperature 97 F L Temperature Source Temporal Pulse Rate 132 H 104 H Respiratory Rate 20 H 20 H Blood Pressure 108/93 H 145/65 H Blood Pressure Mean 98 91 Pulse Ox 95 96 89 Oxygen Delivery Method Room Air Room Air Room Air Oxygen Flow Rate (L/min) 08/04/24 17:43 08/04/24 18:24 Temperature Temperature Source Pulse Rate 108 H Respiratory Rate 23 H Blood Pressure 154/100 H Blood Pressure Mean 118 Pulse Ox 97 95 Oxygen Delivery Method Nasal Cannula Room Air Oxygen Flow Rate (L/min) 2 Positive well nourished and well developed Constitutional Narrative: Mildly ill-appearing General Appearance ED: well developed and NAD HEENT Reports moist mucous membranes Eyes PERRL and EOMs intact bilaterally Neck supple Chest Wall inspection of chest normal and palpation of chest normal Resp normal respiratory effort and clear to auscultation bilaterally Cardio regular rhythm Rate: tachycardic GI normal to inspection, nondistended, normoactive bowel sounds and non-tender Back/Spine no CVA tenderness Extremity normal to inspection General Extremety ED: Negative for edema General Extremity: Negative for edema Neuro oriented x3 Sensorium / Orientation: alert Motor Exam: Negative for general weakness Psych mental status grossly normal Skin no rashes or lesions noted and no wounds MDM MDM MDM Narrative Medical decision making narrative: Patient evaluated for fever, dysuria and vomiting. Patient's tachycardic upon arrival but otherwise hemodynamically stable. Sepsis workup looking for signs of pyelonephritis or bacteremia associated with infections performed. She also has a history of kidney stone to obtain a CT to rule out any type of obstructing kidney stone or hydroureter. Patient does have a leukocytosis with white blood cell count of 16.5. CMP shows a creatinine of 1.24 which is above the patient's baseline of 0.83. Urinalysis is consistent with urinary tract infection with positive nitrates, greater than 100 white blood cells and 3+ bacteria. Urine culture sent. Patient initially received IV Zofran and fluids in the emergency room. Initially she was tachycardic but it had improved with the fluids. CT of the abdomen and pelvis did show findings unit assistant with acute cystitis which is consistent with her presentation as well as mild wall thickening of the GE junction which could represent esophagitis. No obstructing kidney stones were noted. On repeat evaluation patient is not vomiting. She is coffee-ground emesis. She is complaining of more pain associate with vomiting. Will be given further liter of fluids, fentanyl and further Zofran. I will admit her for IV antibiotics and obtain culture before starting antibiotics. Patient is agreeable this plan of care. Will Discussed the Case with Hospitalist. Lab Data Labs: Laboratory Results - last 24 hr 08/04/24 08/04/24 08/04/24 15:54 16:20 16:31 WBC 16.5 H RBC 5.06 Hgb 14.9 Hct 46.5 MCV 91.9 MCH 29.4 MCHC 32.0 RDW Std Deviation 47.0 H RDW Coeff of Mack 13.9 Plt Count 321 MPV 9.5 Neut % (Auto) Not Reportable Absolute Neuts (auto) 14.7 H Absolute Lymphs (auto) 1.32 Total Counted 100 Neutrophils % (Manual) 86 H Band Neutrophils % 3 Lymphocytes % (Manual) 8 L Monocytes % (Manual) 3 Differential Comment MANUAL Diff Path Review May foll Atypical Lymphocytes 1+ Reactive Lymphocytes 2+ Toxic Granulation 4+ Toxic Vacuolation 1+ Platelet Estimate ADEQUATE RBC Morphology NORM C+C Sodium Cancelled 141 Potassium Cancelled 3.6 Chloride Cancelled 107 Carbon Dioxide Cancelled 26.0 Anion Gap Cancelled 8 BUN Cancelled 31 H Creatinine Cancelled 1.24 H Estim Creat Clear Calc Cancelled 36.26 Est GFR (MDRD) Af Amer Cancelled 54 L Est GFR (MDRD) Non-Af Cancelled 45 L BUN/Creatinine Ratio Cancelled 25.0 H Glucose Cancelled 135 H Lactic Acid 1.3 Calcium Cancelled 8.6 Total Bilirubin Cancelled 1.10 H AST Cancelled 20 ALT Cancelled 28 Alkaline Phosphatase Cancelled 103 Total Protein Cancelled 7.1 Albumin Cancelled 2.9 L Globulin Cancelled 4.2 Albumin/Globulin Ratio Cancelled 0.7 L Urine Color Sue Urine Clarity Cloudy Urine pH 6.0 Ur Specific [place] 1.025 Urine Protein 100 H Urine Glucose (UA) Normal Urine Ketones 15 H Urine Occult Blood 50 H Urine Nitrite Positive H Urine Bilirubin Negative Urine Urobilinogen 1 H Ur Leukocyte Esterase 500 H Urine RBC 0-5 SEEN Urine WBC >100 SEEN Ur Squamous Epith Cells 5-10 SEEN Ur Transition Epith Cell 0-5 SEEN Urine Bacteria 3+ Hyaline Casts 0-5 SEEN Urine Mucus 1+ Radiography Diagnostic Testing: Clinical Impression(s) from Imaging Studies Abdomen/Pelvis CT 08/04/24 16:19 IMPRESSION: Findings suspicious for possible cystitis. Correlate with urinalysis. Mild wall thickening of the GE junction could represent esophagitis. Cannot rule out malignancy. Consider esophagram. Hiatal hernia. Few bilateral nonobstructing renal calculi. 3 cm hepatic hemangioma. Electronically Signed: Kye Giles MD at 17:17 EDT Reading Location ID and State: [id number] / [employer] Tel , Service support , Chest X-Ray 08/04/24 17:58 IMPRESSION: No acute radiographic abnormalities. Electronically Signed: Kye Giles MD at 18:45 EDT , Rhythm Strip Rhythm Strip: Sinus Tach Rate: 121 Ectopy: None EKG Initial EKG: Attestation: I personally reviewed and interpreted this EKG as follows: Interpretation: Sinus Tachycardia Comments: Sinus tachycardia rate 121 bpm Right bundle branch block [place] and QTc T wave inversions in V1 through V4 Prior EKG tracings: available for review Prior: Unchanged Discharge Plan Triage Chief Complaint: Complaint ED Provider: Diana Hudson Dx/Rx/DC Orders Prescriptions: No Action lisinopril 10 mg tablet 10 mg PO DAILY Primary Care Provider: Johanne Callahan Referrals: Johanne Callahan, CANDACE-C [Primary Care Provider] - Print Language: Vincentian
[2024-08-04 16:24] LABS: Differential Indicated MANUAL DIFF
[2024-08-04 16:25] LABS: Differential Comment MANUAL
[2024-08-04 16:29] LABS: Color, Urine Amber (Yellow); Glucose, Dipstick Normal (Normal); Ketone-Dipstick 15 mg/dl (Negative); Leukocyte Esterase-Dipstick 500 /ul (Negative); Nitrite-Dipstick Positive (Negative); Occult Blood-Urine 50 /ul (Negative); Protein-Dipstick 100 mg/dl (Negative); Specific Gravity, Urine 1.025 (1.002-1.030); Urine Bilirubin Dipstick Negative (Negative); Urine Clarity Cloudy (Clear); Urine Urobilinogen 1 mg/dl (Normal)
[2024-08-04 16:30] LABS: Atypical Lymphocyte 1+ %; Lymphocyte 8 % (19-41); Monocyte 3 % (0-10); Neutrophil-Band 3 % (0-5); Neutrophil-Segmented 86 % (47-70); Reactive Lymphocyte 2+; Total Cells Counted 100 (MANUAL DIFF); Toxic Granulation 4+; Vacuolated Cells 1+
[2024-08-04 16:31] LABS: Platelet Estimate ADEQUATE (ADEQ); Red Cell Morphology NORM C+C NORMAL (NORM C&C)
[2024-08-04 16:33] LABS: Absolute Lymphocyte Count 1.32 X10^3/uL (0.83-4.51); Absolute Neutrophil Count 14.7 X10^3/uL (2.0-7.7)
[2024-08-04 16:42] LABS: Bacteria 3+ /hpf (None Seen); White Blood Cells >100 SEEN /hpf (0-5)
[2024-08-04 16:43] LABS: Red Blood Cells-Urine 0-5 SEEN /hpf (0-5); Squamous Epithelial Cells - UA 5-10 SEEN /hpf (5-10)
[2024-08-04 16:44] LABS: Mucous, Urine 1+ /hpf (<or=2+); Transitional Epithelial - Ur 0-5 SEEN /hpf (0-5)
[2024-08-04 16:45] LABS: Hyaline Cast 0-5 SEEN /lpf (0-5)
[2024-08-04 16:49] LABS: Lactic Acid 1.3 mmol/L (0.4-1.9)
[2024-08-04 16:51] LABS: ALB/GLOB Ratio 0.7 RATIO (0.9-2.4); AST(SGOT) 20 U/L (15-37); Alanine Aminotransfer ALT/SGPT 28 U/L (13-56); Albumin, Serum 2.9 g/dL (3.2-5.0); Alkaline Phosphatase 103 U/L (45-117); Anion Gap 8 (5-15); BUN 31 mg/dL (7-18); Calcium,Total 8.6 mg/dL (8.5-10.1); Chloride 107 mmol/L (98-107); Creatinine, Serum 1.24 mg/dL (0.55-1.02); EST Glomerular Filtration Rate 45 mL/min (>60); Est Glom Filt Rate - Afr Amer 54 mL/min (>60); Estimated Creatinine Clearance 36.26 ml/min; Globulin 4.2 g/dL (2.2-4.2); Glucose 135 mg/dL (74-106); Potassium 3.6 mmol/L (3.5-5.1); Protein, Total 7.1 g/dL (6.4-8.2); Sodium Level 141 mmol/L (136-145)
--- NOTE | 2024-08-04 17:58 | RAD_ITS ---
INDICATION: O2 SAT, POSSIBLE ASPIRATION FROM VOMITING EXAMINATION/TECHNIQUE: X-RAY - XR Chest 2 Views COMPARISON: 11/02/2014. FINDINGS: The lungs are clear. Tortuous and calcified thoracic aorta. The heart is not enlarged. No pleural effusion or pneumothorax. Degenerative changes of the thoracic spine. RAD/Chest PA and Lateral IMPRESSION: No acute radiographic abnormalities. Electronically Signed: Kye Giles MD at 18:45 EDT ,
--- NOTE | 2024-08-04 19:22 | HP.PCM.HOS_ITS ---
HPI - General General Date of Admission: 08/04/24 Date of Service: 08/04/24 Chief Complaint: dysuria, vomiting and fever HPI Narrative JOSE RAFAEL ARREDONDO, is a 73 F with a PMH as outlined who presents via the ED on 08/04/2024 with a complaint of fever, dysuria, vomiting and generalised malaise. Her symptoms started a couple of days prior to admission. Her temperature was up to 101.7. She had consistent nausea and vomiting overnight and felt very weak and tired. She had coffee ground emesis from the vomiting. She denied any abdominal pain, dizziness, shortness of breath or any other symptoms. She says uses Advil occasionally when she has a headache and says she uses it like every other day but not every day. Review of systems was otherwise negative. She does have a history of kidney stones. Review of systems was otherwise negative. Vitals in the ED were BP of 154/100, FL of 108, RR of 23 and oxygen sats of 95% on room air. CBC showed Hb of 14.9, wbc of 16.5 and platelets of 321. Chemistry showed sodium of 141, potassium of 3.6, Bicarb of 26 and Cr of 1.24. Urinalysis showed 3+ bacteria. CT abdomen and pelvis showed finding suspicious for possible cystitis and mild wall thickening of the GE junction which oulc represent esophagitis, but cannot rule out malignancy, hiatal hernia and a few bilateral nonobstructing renal calculi. She is being admitted to be managed for UTI as well as UGI bleed in light of the coffee ground emesis. [facility] Medical History Post-menopausal Anemia Easy bruising Migraine headache Injury of head and neck Non-smoker Urolithiasis Hypertension Home Medications ?Medication ?Instructions ?Recorded ?Last Taken ?Type lisinopril 10 mg tablet 10 mg PO DAILY 04/18/24 08/03/24 History Allergy/AdvReac Type Severity Reaction Status Date / Time Tetanus Vaccines and Toxoid Allergy Swelling Verified 08/04/24 15:14 codeine AdvReac Nausea Verified 08/04/24 15:14 Sulfa (Sulfonamide AdvReac Nausea Verified 08/04/24 15:14 Antibiotics) Surgical History Hx of colonoscopy History of ureteroscopy Hx of appendectomy Hx of discectomy Hx of hysterectomy Hx of cystoscopy Social History Smoking Status: Never smoker ROS Constitutional Constitutional: Reports fatigue, malaise and weakness; Denies anorexia, chills or fever(s) Eyes Eyes: Denies change in vision ENT HEENT: Denies dysphagia, headache(s) or sore throat Cardiovascular Cardiovascular: Denies chest pain, dyspnea on exertion, edema, lightheadedness, orthopnea, palpitations, paroxysmal nocturnal dyspnea, rapid heart rate or syncope Respiratory/Chest Respiratory/Chest: Denies cough, dyspnea, productive cough, shortness of breath at rest or shortness of breath with exertion Gastrointestinal Gastrointestinal: Reports abdominal pain and coffee ground emesis; Denies diarrhea, dyspepsia, hematemesis, hematochezia, loose stools, melena, nausea or vomiting Genitourinary Genitourinary: Denies burning urination or dysuria Musculoskeletal Musculoskeletal: Denies arthralgias or joint pain Neurologic Neurologic: Denies confusion, dizziness, focal weakness, headache(s), numbness, seizures or syncope Psychiatric Psychiatric: Denies anxiety or depression Endocrine Endocrinology: Denies change in body appearance Hematologic/Lymphatic Hematologic/Lymphatic: Denies anemia Vital Signs Vital Signs Vital Signs: 08/04/24 14:59 08/04/24 16:38 08/04/24 17:40 Temperature 97 F L Temperature Source Temporal Pulse Rate 132 H 104 H Respiratory Rate 20 H 20 H Blood Pressure 108/93 H 145/65 H Blood Pressure Mean 98 91 Pulse Ox 95 96 89 Oxygen Delivery Method Room Air Room Air Room Air Oxygen Flow Rate (L/min) 08/04/24 17:43 08/04/24 18:24 Temperature Temperature Source Pulse Rate 108 H Respiratory Rate 23 H Blood Pressure 154/100 H Blood Pressure Mean 118 Pulse Ox 97 95 Oxygen Delivery Method Nasal Cannula Room Air Oxygen Flow Rate (L/min) 2 Weight Weight: 160 lb Body Mass Index (BMI) 30.2 Physical Exam Const alert and oriented x3 Constitutional Narrative: looks very frail and weak. General Appearance: cooperative Orientation / Consciousness: lethargic HEENT normocephalic, head/scalp atraumatic, hearing grossly normal bilaterally and moist oral mucous membranes Mouth: oral and palatal mucosa normal Eyes PERRL, EOMs intact bilaterally and conjunctivae normal Neck no lymphadenopathy and supple Resp normal respiratory effort, no retractions, no use of accessory muscles and clear to auscultation bilaterally Cardio regular rate, regular rhythm, S1 normal heart sound, S2 normal heart sound and no murmurs GI normal to inspection, nondistended, normoactive bowel sounds, soft to palpation, non-tender, non-distended and hepatosplenomegaly Extremity normal to inspection, full ROM and no clubbing, cyanosis or edema Neuro oriented x3, CN's II-XII intact bilaterally, moves all extremities and no focal motor deficits Sensorium / Orientation: awake Motor Exam: strength 5/5 throughout Psych affect normal Results Lab / Micro Data 08/04/24 15:54 08/04/24 16:31 Labs: Laboratory Results - last 24 hr 08/04/24 15:54: WBC 16.5 H, RBC 5.06, Hgb 14.9, Hct 46.5, MCV 91.9, MCH 29.4, MCHC 32.0, RDW Std Deviation 47.0 H, RDW Coeff of Mack 13.9, Plt Count 321, MPV 9.5, Neut % (Auto) Not Reportable, Absolute Neuts (auto) 14.7 H, Absolute Lymphs (auto) 1.32, Total Counted 100, Neutrophils % (Manual) 86 H, Band Neutrophils % 3, Lymphocytes % (Manual) 8 L, Monocytes % (Manual) 3, Differential Comment MANUAL, Diff Path Review May foll, Atypical Lymphocytes 1+, Reactive Lymphocytes 2+, Toxic Granulation 4+, Toxic Vacuolation 1+, Platelet Estimate ADEQUATE, RBC Morphology NORM C+C, Sodium Cancelled, Potassium Cancelled, Chloride Cancelled, Carbon Dioxide Cancelled, Anion Gap Cancelled, BUN Cancelled, Creatinine Cancelled, Estim Creat Clear Calc Cancelled, Est GFR (MDRD) Af Amer Cancelled, Est GFR (MDRD) Non-Af Cancelled, BUN/Creatinine Ratio Cancelled, Glucose Cancelled, Lactic Acid 1.3, Calcium Cancelled, Total Bilirubin Cancelled, AST Cancelled, ALT Cancelled, Alkaline Phosphatase Cancelled, Total Protein Cancelled, Albumin Cancelled, Globulin Cancelled, Albumin/Globulin Ratio Cancelled 08/04/24 16:20: Urine Color Sue, Urine Clarity Cloudy, Urine pH 6.0, Ur Specific [place] 1.025, Urine Protein 100 H, Urine Glucose (UA) Normal, Urine Ketones 15 H, Urine Occult Blood 50 H, Urine Nitrite Positive H, Urine Bilirubin Negative, Urine Urobilinogen 1 H, Ur Leukocyte Esterase 500 H, Urine RBC 0-5 SEEN, Urine WBC >100 SEEN, Ur Squamous Epith Cells 5-10 SEEN, Ur Transition Epith Cell 0-5 SEEN, Urine Bacteria 3+, Hyaline Casts 0-5 SEEN, Urine Mucus 1+ 08/04/24 16:31: Sodium 141, Potassium 3.6, Chloride 107, Carbon Dioxide 26.0, Anion Gap 8, BUN 31 H, Creatinine 1.24 H, Estim Creat Clear Calc 36.26, Est GFR (MDRD) Af Amer 54 L, Est GFR (MDRD) Non-Af 45 L, BUN/Creatinine Ratio 25.0 H, G lucose 135 H, Calcium 8.6, Total Bilirubin 1.10 H, AST 20, ALT 28, Alkaline Phosphatase 103, Total Protein 7.1, Albumin 2.9 L, Globulin 4.2, A lbumin/Globulin Ratio 0.7 L Rhythm Strip Rhythm Strip: Sinus Tach Rate: 121 Ectopy: None Imaging Radiology Impression Abdomen/Pelvis CT 08/04/24 16:19 IMPRESSION: Findings suspicious for possible cystitis. Correlate with urinalysis. Mild wall thickening of the GE junction could represent esophagitis. Cannot rule out malignancy. Consider esophagram. Hiatal hernia. Few bilateral nonobstructing renal calculi. 3 cm hepatic hemangioma. Electronically Signed: Kye Giles MD at 17:17 EDT , Chest X-Ray 08/04/24 17:58 IMPRESSION: No acute radiographic abnormalities. Electronically Signed: Kye Giles MD at 18:45 EDT , Assessment & Plan Assessment/Plan (1) UTI (urinary tract infection): (2) UGI bleed: PLAN: Plan #UTI * admit to med surg * Admitted with a complaint of frequency and dysuria. Urinalysis showed evidence of UTI with 3+ bacteria. * CT of the abdomen pelvis showed evidence suspicious for possible cystitis. She also had few bilateral nonobstructing renal calculi * Started on IV ceftriaxone. Hydrate with IV fluid normal saline. * Get urine cultures. * P.o. Tylenol p.o. oxycodone as needed for pain #Probable upper GI bleed * She has been having incessant nausea and vomiting since her symptoms started yesterday. * Started having coffee-ground emesis in the ED. CT of the abdomen and pelvis did show mild wall thickening of the GE junction which could represent esophagitis and cannot rule out malignancy. * Hemoglobin is 14.9. * Hold all NSAIDs and any blood thinners. Consult gastroenterology for probable EGD tomorrow. Keep n.p.o. past midnight. * IV pantoprazole 40 mg twice daily. Treat with IV fluid normal saline at 125 cc/hr * DVT Prophylaxis: SCDs CODE STATUS: full code * Patient and counseled extensively about different types of CODE STATUS including full code, DNR CCA and DNR CCA. Patient elects to be full code. * Total [id number] time 17 minutes. Charges/Coding Visit Charges Inpatient E&M: 34083 Init Hosp L3 Procedures Hospitalists Procedures: 32894 Advncd Care Plan 30 Min
[2024-08-04] MEDS: Pantoprazole Sodium 40 MG in 0.9% Normal Saline (100mL MB+) 100 ML 330 MG IV (19:36)
[2024-08-04] MEDS: fentaNYL 100 MCG/2 ML Ampul 50 MCG IV (19:36)
[2024-08-04] MEDS: 0.9% Normal Saline (1000mL) 1,000 ML 150 ML IV (19:36)
[2024-08-04] MEDS: Ceftriaxone 1 GM/50 ML BAG IV (20:15)
[2024-08-04] MEDS: 0.9% Normal Saline (1000mL) 1,000 ML 125 ML IV (20:30)
[2024-08-05] VITALS (11 sets, daily range): BP systolic 101–160; BP diastolic 48–91; PULSE 98–104; RESP 16–18; TEMP 36.5–37; O2SAT 95–100
[2024-08-05] MEDS: 0.9% Normal Saline (1000mL) 1,000 ML 125 ML IV (04:33)
[2024-08-05 06:19] LABS: Absolute Lymphocyte Count 0.63 X10^3/uL (0.83-4.51); Absolute Neutrophil Count 8.8 X10^3/uL (2.0-7.7); Basophil# 0.03 X10^3/uL; Basophil% 0.3 % (0-1); Hematocrit 37.8 % (37-47); Lymphocyte # 0.63 X10^3/ul (0.83-4.51); Lymphocyte % 5.9 % (19-41); Mean Corp Hgb Conc 31.7 g/dL (32-36); Mean Corpuscular Hgb 29.4 pg (27.0-32.0); Mean Corpuscular Volume 92.6 fL (81-99); Mean Platelet Vol. 9.4 fl (6.2-12.0); Monocyte# 1.16 X10^3/uL; Monocyte% 10.9 % (0-10); NRBC Flagged by Analyzer 0 % (0-5); Neutrophil # 8.79 X10^3/uL (2.7-7.7); Neutrophil % 82.3 % (47-70); Platelet Count 253 K/mm3 (150-450); RBC Distribution Width CV 13.8 % (11.6-14.6); Red Blood Count 4.08 M/mm3 (4.2-5.4); White Blood Count 10.7 K/mm3 (4.4-11.0)
[2024-08-05 06:52] LABS: Anion Gap 8 (5-15); BUN 26 mg/dL (7-18); BUN/Creat Ratio 31.5 RATIO (10-20); Calcium,Total 8.4 mg/dL (8.5-10.1); Chloride 108 mmol/L (98-107); Creatinine, Serum 0.82 mg/dL (0.55-1.02); EST Glomerular Filtration Rate 72 mL/min (>60); Est Glom Filt Rate - Afr Amer 87 mL/min (>60); Estimated Creatinine Clearance 55.07 ml/min; Glucose 106 mg/dL (74-106); Potassium 3.8 mmol/L (3.5-5.1); Sodium Level 142 mmol/L (136-145)
--- NOTE | 2024-08-05 11:02 | CASEMGMT ---
DAVID ROBBINS Assessment: Face to Face with pt for initial transition planning/care coordination assessment. RN ITZEL introduced self and role at [facility], pt voices understanding and consents to assessment. Pt is A&O x4 and answers all questions appropriately at this time. Pt lying in bed in no distress. Care providers, pharmacy, and demographics verified/updated. Admitting Dx: UTI, Upper GIB Strata Score: 2 PCP:Johanne Callahan NP Specialists:Denies Preferred Pharmacy:[facility] Alejandro Insurance: [employer] [facility] Prescription Benefit: yes LNOK: Hayden Felix, son; Lyndseystanley Foster, dtr Living Arrangements: Pt lives with in a ground level apt with no steps to enter. Pt reports she is I in ADL's and denies concerns at home. Transportation: Pt drives self and denies concerns with transportation. DME:Denies HHC/SNF: Denies hx of Pt states no concerns with going home at time of dc. 6 cl=24. Pt states no further concerns/needs. CM to follow. Advised pt to ask CM if any further question/concerns/needs arise, voices understanding. Pt Goal: Home Plan: Home Joann HERNANDEZ CM
[2024-08-05] MEDS: Pantoprazole Sodium 40 MG in 0.9% Normal Saline (100mL MB+) 100 ML 330 MG IV ×2 (11:22→20:14)
[2024-08-05] MEDS: Ceftriaxone 1 GM/50 ML BAG IV (11:25)
[2024-08-05 13:02] LABS: Pathologist Review Reviewed
--- NOTE | 2024-08-05 14:59 | PN.HOSP_ITS ---
Reason for Visit Reason for Visit: Diagnoses Gastrointestinal hemorrhage, unspecified (08/04/24) Urinary tract infection, site not specified (08/04/24) Subjective Subjective Patient seen at bedside, resting comfortably, nausea improving, still has a little bit of suprapubic tenderness, no further episodes of bleeding that have been noted Objective Data Objective Data Vital Signs: Vital Signs Temp Pulse Resp BP Pulse Ox O2 Del Method O2 Flow Rate 98.1 F 104 H 18 151/82 H 98 Room Air 1 08/05/24 09:32 08/05/24 09:32 08/05/24 09:35 08/05/24 09:32 08/05/24 09:32 08/05/24 09:35 08/04/24 20:14 Oxygen Flow Rate (L/min) 1 Oxygen Delivery Method Room Air Weight: 73.2 kg Body Mass Index (BMI) 30.4 Intake & Output: Intake and Output for Last 24 Hours 08/03/24 08/04/24 08/05/24 23:59 23:59 23:59 Intake Total 2160 / 2560 1560 / 1560 Balance 2160 / 2560 1560 / 1560 Lab / Micro Data 08/05/24 06:02 08/05/24 06:02 Labs: Laboratory Results - last 24 hr 08/04/24 15:54: WBC 16.5 H, RBC 5.06, Hgb 14.9, Hct 46.5, MCV 91.9, MCH 29.4, MCHC 32.0, RDW Std Deviation 47.0 H, RDW Coeff of Mack 13.9, Plt Count 321, MPV 9.5, Neut % (Auto) Not Reportable, Absolute Neuts (auto) 14.7 H, Absolute Lymphs (auto) 1.32, Total Counted 100, Neutrophils % (Manual) 86 H, Band Neutrophils % 3, Lymphocytes % (Manual) 8 L, Monocytes % (Manual) 3, Differential Comment MANUAL, Diff Path Review Reviewed, Atypical Lymphocytes 1+, Reactive Lymphocytes 2+, Toxic Granulation 4+, Toxic Vacuolation 1+, Platelet Estimate ADEQUATE, RBC Morphology NORM C+C, Sodium Cancelled, Potassium Cancelled, Chloride Cancelled, Carbon Dioxide Cancelled, Anion Gap Cancelled, BUN Cancelled, Creatinine Cancelled, Estim Creat Clear Calc Cancelled, Est GFR (MDRD) Af Amer Cancelled, Est GFR (MDRD) Non-Af Cancelled, BUN/Creatinine Ratio Cancelled, Glucose Cancelled, Lactic Acid 1.3, Calcium Cancelled, Total Bilirubin Cancelled, AST Cancelled, ALT Cancelled, Alkaline Phosphatase Cancelled, Total Protein Cancelled, Albumin Cancelled, Globulin Cancelled, Albumin/Globulin Ratio Cancelled 08/04/24 16:20: Urine Color Sue, Urine Clarity Cloudy, Urine pH 6.0, Ur Specific [place] 1.025, Urine Protein 100 H, Urine Glucose (UA) Normal, Urine Ketones 15 H, Urine Occult Blood 50 H, Urine Nitrite Positive H, Urine Bilirubin Negative, Urine Urobilinogen 1 H, Ur Leukocyte Esterase 500 H, Urine RBC 0-5 SEEN, Urine WBC >100 SEEN, Ur Squamous Epith Cells 5-10 SEEN, Ur Transition Epith Cell 0-5 SEEN, Urine Bacteria 3+, Hyaline Casts 0-5 SEEN, Urine Mucus 1+ 08/04/24 16:31: Sodium 141, Potassium 3.6, Chloride 107, Carbon Dioxide 26.0, Anion Gap 8, BUN 31 H, Creatinine 1.24 H, Estim Creat Clear Calc 36.26, Est GFR (MDRD) Af Amer 54 L, Est GFR (MDRD) Non-Af 45 L, BUN/Creatinine Ratio 25.0 H, G lucose 135 H, Calcium 8.6, Total Bilirubin 1.10 H, AST 20, ALT 28, Alkaline Phosphatase 103, Total Protein 7.1, Albumin 2.9 L, Globulin 4.2, A lbumin/Globulin Ratio 0.7 L 08/05/24 06:02: WBC 10.7, RBC 4.08 L, Hgb 12.0, Hct 37.8, MCV 92.6, MCH 29.4, M CHC 31.7 L, RDW Std Deviation 47.0 H, RDW Coeff of Amck 13.8, Plt Count 253, MPV 9.4, Immature Gran % (Auto) 0.600, Neut % (Auto) 82.3 H, Lymph % (Auto) 5.9 L, M maureen % (Auto) 10.9 H, Eos % (Auto) 0.0, Baso % (Auto) 0.3, Absolute Neuts (auto) 8.8 H, Absolute Lymphs (auto) 0.63 L, Nucleated RBC % 0, Sodium 142, Potassium 3.8, Chloride 108 H, Carbon Dioxide 26.0, Anion Gap 8, BUN 26 H, Creatinine 0.82, Estim Creat Clear Calc 55.07, Est GFR (MDRD) Af Amer 87, Est GFR (MDRD) Non-Af 72, BUN/Creatinine Ratio 31.5 H, Glucose 106, Calcium 8.4 L Micro: Microbiology 08/04/24 23:08 Mucosa - Nasopharyngeal Respiratory Panel (PCR) - Final 08/04/24 19:50 Vomitus Gastric Occult Blood - Final Occult Blood Positive Radiography Diagnostic Testing: Radiology Impression Abdomen/Pelvis CT 08/04/24 16:19 IMPRESSION: Findings suspicious for possible cystitis. Correlate with urinalysis. Mild wall thickening of the GE junction could represent esophagitis. Cannot rule out malignancy. Consider esophagram. Hiatal hernia. Few bilateral nonobstructing renal calculi. 3 cm hepatic hemangioma. Electronically Signed: Kye Giles MD at 17:17 EDT , Chest X-Ray 08/04/24 17:58 IMPRESSION: No acute radiographic abnormalities. Electronically Signed: Kye Giles MD at 18:45 EDT , Rhythm Strip Rhythm Strip: Sinus Tach Rate: 121 Ectopy: None Physical Exam Narrative General: Alert, oriented, no apparent distress HEENT: Atraumatic, normocephalic Eyes: Anicteric, normal conjunctiva, extraocular movements grossly intact Neck: Supple Respiratory: Clear to auscultation bilaterally, normal respiratory effort Cardiovascular: Regular rate and rhythm GI: Soft, nontender, nondistended Extremities: No edema Musculoskeletal: Moving all extremities Neuro: No overt focal neurological deficits Skin: No rashes appreciated Psych: Cooperative Assessment & Plan Assessment/Plan (1) UTI (urinary tract infection): PLAN: Plan #UTI -On presentation patient with suprapubic tenderness, bladder thickening on CT, elevated white blood cell count and UA suggestive of UTI -Patient on Rocephin -Urine and blood cultures pending #Suspect UGIB -Patient with coffee-ground emesis on presentation, did have gastric occult obtained which was positive -Patient with hemoglobin of 14.9 down to 12 today -On IV Protonix -GI consult -Patient for upper endoscopy today #Hypertension -On lisinopril -May ultimately need up titration of medication, will evaluate postoperatively # ADELIA?resolved -Patient with creatinine of 1.24 on presentation with a baseline of 0.83 -Improved back to 0.82 today -Status post IV fluids -Recheck in the a.m. #DVT ppx: SCDs Kourtney Baker MD Time spent in the patient's overall evaluation,decision-making process, review of diagnostic data, adjustment of management, discussion with other providers, nursing nursing and ancillary staff involved in patient's care documentation, 36 Minutes Charges/Coding Visit Charges Inpatient E&M: 01373 Subs Hosp L2
[2024-08-05] MEDS: Lactated Ringers 1,000 ML 15 ML IV (15:15)
--- NOTE | 2024-08-05 15:31 | PCM.PRE.AN2 ---
ASA Classification* ASA Classification ASA Classification: 2 Assessment & Plan Anesthesia* Anesthesia Assessment Anesthesia Assessment: Discussed sedation and/or anesthesia options, risks, benefits, and alternatives with patient/parents/legal guardian/POA. Questions invited. The patient/parents/legal guardian/POA seems to understand and agrees to proceed with anesthesia plan. Reviewed the physical assessment, medical history, allergy history and patient home medications list prior to surgery/procedure/anesthetic and documented any changes. Performed airway and anesthesia risk assessments. Anesthesia Type Anesthesia Type: MAC Anesthesia Focused Assessment* Temperature: 98.6 F Pulse Rate: 101 Blood Pressure: 160/91 Respiratory Rate: 18 Pulse Ox: 98 Oxygen Delivery Method: Room Air Airway Assessment Mouth opens: >3 cm Mallampati Score: II Neck Range of motion (ROM): Full ROM Focused Labs Anesthesia Preop lab: CBC WBC 10.7 K/mm3 (4.4-11.0) 08/05/24 06:02 RBC 4.08 M/mm3 (4.2-5.4) L 08/05/24 06:02 Hgb 12.0 g/dL (12.0-15.0) 08/05/24 06:02 Hct 37.8 % (37-47) 08/05/24 06:02 Plt Count 253 K/mm3 (150-450) 08/05/24 06:02 CHEMISTRY Potassium 3.8 mmol/L (3.5-5.1) 08/05/24 06:02 Sodium 142 mmol/L (136-145) 08/05/24 06:02 BUN 26 mg/dL (7-18) H 08/05/24 06:02 Creatinine 0.82 mg/dL (0.55-1.02) 08/05/24 06:02 Glucose 106 mg/dL (74-106) 08/05/24 06:02 TSH 0.60 uIU/mL (0.358-3.74) 11/21/23 09:50 COAG Pre-Assessment Diagnosis/Proposed Procedure Planned Operative Procedure(s): Esophagogastroduodenoscopy with possible cautery and/or injection therapy. 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 When Was Last Pacemaker Check QUESTION #4 FULL TEXT: You/Your Family Experience fever (hyperthermia) with Anesthesia Last Oral Intake Last Oral intake: Last Oral Intake NPO since Meds taken in AM with sips of water? Meds patient instructed to take am of surgery Any additional information?: Yes NPO since: 00:00 PONV PONV - magnetometer operator: PONV - magnetometer operator Female HX of Motion Sickness HX of N/V After Surgery Non-Smoker Duration of Surgery greater than 60 minutes Number of Risk Factors PONV Score Height & Weight Height & Weight: Anesthesia: Height & Weight Height 5 ft 1 in 08/05/24 14:43 Weight: 73.2 kg 08/05/24 14:43 Body Mass Index (BMI) 30.4 08/04/24 21:03 Respiratory Assessment Respiratory Assessment - magnetometer operator: Respiratory Tract Infection Hx - magnetometer operator Hx Respiratory Tract Infection No 08/05/24 04:21 STOP Sleep Apnea STOP Sleep Apnea - magnetometer operator: STOP Sleep Apnea - magnetometer operator Hx Hypertension Yes: CONTROLLED WITH MED 08/05/24 12:05 Hx Sleep Apnea No 08/04/24 21:03 CPAP BIPAP Do you snore loudly (louder No 08/04/24 21:03 than talking or can be heard Do you often feel tired/ No 08/04/24 21:03 fatigued/ sleepy during daytime? Has anyone observed you stop No 08/04/24 21:03 breathing during sleep? STOP Results Negative 08/04/24 21:03 QUESTION #5 FULL TEXT : Do you snore loudly (louder than talking or can be heard through closed doors)? 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 Specify any problems Hx of Preganancy in last 3 N/A 08/04/24 21:03 Months Nurse Filling Out Transfusion LFORREST 08/04/24 21:03 & Questions: Date: 08/04/24 08/04/24 21:03 Time: 21:12 08/04/24 21:03 Patient unable to answer at this time (ie. confused, unrespo /Reproduction History /Reproductive History - magnetometer operator: /Reproductive Hx- magnetometer operator Hx Now Gestational Age (in weeks): EDC: Hx Hx Para Hx Section SAB No 04/18/24 08:05 Active Medications Active Medications: Current Medications Generic Name Dose Route Start Last Admin Trade Name Freq PRN Reason Stop Dose Admin Acetaminophen 650 mg 08/04/24 21:26 Acetaminophen 325 Mg Tablet PO Q6H PRN PRN Pain 1-10 Or Fever >100.7 Pantoprazole Sodium 40 mg/ 110 mls @ 330 mls/hr 08/05/24 10:00 08/05/24 12:00 Sodium Chloride IV Infused Q12 JENNIFER Infusion Ceftriaxone Sodium 1 gm in 50 mls @ 100 mls/hr 08/05/24 10:00 08/05/24 12:07 Rocephin IV Infused Q24 JENNIFER Infusion Lactated Ringer's 1,000 mls @ 15 mls/hr 08/05/24 15:15 08/05/24 15:15 IV 15 mls/hr .Q48H JENNIFER Administration Lisinopril 10 mg 08/05/24 10:00 08/05/24 11:24 Lisinopril 10 Mg Tablet PO Not Given DAILY JENNIFER Protocol Melatonin 3 mg 08/04/24 21:26 Melatonin 3 Mg Tablet PO QHS PRN PRN INSOMNIA Morphine Sulfate 2 - 4 mg 08/04/24 21:26 Morphine 2 Mg/Ml Syringe IV Q3H PRN PRN Pain Score 6-10 Morphine Sulfate 2 - 4 mg 08/04/24 21:29 Morphine 4 Mg/Ml Syringe IV Q3H PRN PRN Pain Score 6-10 Nitroglycerin 0.4 mg 08/04/24 21:26 Nitroglycerin (Inpatient Use) 0.4 Mg Tab.Subl SL Q5M PRN CARDIAC/CHEST PAIN Ondansetron HCl 4 mg 08/04/24 21:26 Ondansetron 4 Mg/2 Ml Vial IV Q8H PRN PRN NAUSEA/VOMITING Oxycodone HCl 5 mg 08/04/24 21:26 Oxycodone 5 Mg Tablet PO Q4H PRN PRN Pain Score 4-10 PFSH Medical History Post-menopausal Anemia Easy bruising Migraine headache Injury of head and neck Non-smoker Urolithiasis Hypertension Home Medications ?Medication ?Instructions ?Recorded ?Last Taken ?Type lisinopril 10 mg tablet 10 mg PO DAILY 04/18/24 08/03/24 History Allergy/AdvReac Type Severity Reaction Status Date / Time Tetanus Vaccines and Toxoid Allergy Swelling Verified 08/04/24 15:14 codeine AdvReac Nausea Verified 08/04/24 15:14 Sulfa (Sulfonamide AdvReac Nausea Verified 08/04/24 15:14 Antibiotics) Surgical History Hx of colonoscopy History of ureteroscopy Hx of appendectomy Hx of discectomy Hx of hysterectomy Hx of cystoscopy Social History Smoking Status: Never smoker Review of Systems (Anesthesia) ROS Narrative System reviewed and no additional complaints, except as documented.
--- NOTE | 2024-08-05 17:33 | CON.PCM.GI_ITS ---
HPI Consult Data Date of Consult: 08/05/24 HPI Narrative Reason for Consultation: GI bleed HPI Narrative: JOSE RAFAEL ARREDONDO, is a 73 F with a PMH as outlined who presents via the ED on 08/04/2024 with a complaint of fever, dysuria, vomiting and generalised malaise. Her symptoms started a couple of days prior to admission. Her temperature was up to 101.7. She had consistent nausea and vomiting overnight and felt very weak and tired. She had coffee ground emesis from the vomiting. She denied any abdominal pain, dizziness, shortness of breath or any other symptoms. She says uses Advil occasionally when she has a headache and says she uses it like every other day but not every day. Review of systems was otherwise negative. She does have a history of kidney stones. Review of systems was otherwise negative. Vitals in the ED were BP of 154/100, NV of 108, RR of 23 and oxygen sats of 95% on room air. CBC showed Hb of 14.9, wbc of 16.5 and platelets of 321. Chemistry showed sodium of 141, potassium of 3.6, Bicarb of 26 and Cr of 1.24. Urinalysis showed 3+ bacteria. CT abdomen and pelvis showed finding suspicious for possible cystitis and mild wall thickening of the GE junction which oulc represent esophagitis, but cannot rule out malignancy, hiatal hernia and a few bilateral nonobstructing renal calculi. She is being admitted to be managed for UTI as well as UGI bleed in light of the coffee ground emesis. [facility] Medical History Post-menopausal Anemia Easy bruising Migraine headache Injury of head and neck Non-smoker Urolithiasis Hypertension Home Medications ?Medication ?Instructions ?Recorded ?Last Taken ?Type lisinopril 10 mg tablet 10 mg PO DAILY 04/18/24 08/03/24 History Allergy/AdvReac Type Severity Reaction Status Date / Time Tetanus Vaccines and Toxoid Allergy Swelling Verified 08/04/24 15:14 codeine AdvReac Nausea Verified 08/04/24 15:14 Sulfa (Sulfonamide AdvReac Nausea Verified 08/04/24 15:14 Antibiotics) Surgical History Hx of colonoscopy History of ureteroscopy Hx of appendectomy Hx of discectomy Hx of hysterectomy Hx of cystoscopy Social History Smoking Status: Never smoker ROS Constitutional Constitutional: Reports fatigue, malaise and weakness; Denies anorexia, chills or fever(s) Eyes Eyes: Denies change in vision ENT HEENT: Denies dysphagia, headache(s) or sore throat Cardiovascular Cardiovascular: Denies chest pain, dyspnea on exertion, edema, lightheadedness, orthopnea, palpitations, paroxysmal nocturnal dyspnea, rapid heart rate or syncope Respiratory/Chest Respiratory/Chest: Denies cough, dyspnea, productive cough, shortness of breath at rest or shortness of breath with exertion Gastrointestinal Gastrointestinal: Reports abdominal pain and coffee ground emesis; Denies diarrhea, dyspepsia, hematemesis, hematochezia, loose stools, melena, nausea or vomiting Genitourinary Genitourinary: Denies burning urination or dysuria Musculoskeletal Musculoskeletal: Denies arthralgias or joint pain Neurologic Neurologic: Denies confusion, dizziness, focal weakness, headache(s), numbness, seizures or syncope Psychiatric Psychiatric: Denies anxiety or depression Endocrine Endocrinology: Denies change in body appearance Hematologic/Lymphatic Hematologic/Lymphatic: Denies anemia Physical Exam Narrative General: Alert, oriented, no apparent distress HEENT: Atraumatic, normocephalic Eyes: Anicteric, normal conjunctiva, extraocular movements grossly intact Neck: Supple Respiratory: Clear to auscultation bilaterally, normal respiratory effort Cardiovascular: Regular rate and rhythm GI: Soft, nontender, nondistended Extremities: No edema Musculoskeletal: Moving all extremities Neuro: No overt focal neurological deficits Skin: No rashes appreciated Psych: Cooperative Lab / Micro Data 08/05/24 06:02 08/05/24 06:02 Labs: Laboratory Results - last 24 hr 08/04/24 15:54: Diff Path Review Reviewed 08/05/24 06:02: WBC 10.7, RBC 4.08 L, Hgb 12.0, Hct 37.8, MCV 92.6, MCH 29.4, M CHC 31.7 L, RDW Std Deviation 47.0 H, RDW Coeff of Mack 13.8, Plt Count 253, MPV 9.4, Immature Gran % (Auto) 0.600, Neut % (Auto) 82.3 H, Lymph % (Auto) 5.9 L, M maureen % (Auto) 10.9 H, Eos % (Auto) 0.0, Baso % (Auto) 0.3, Absolute Neuts (auto) 8.8 H, Absolute Lymphs (auto) 0.63 L, Nucleated RBC % 0, Sodium 142, Potassium 3.8, Chloride 108 H, Carbon Dioxide 26.0, Anion Gap 8, BUN 26 H, Creatinine 0.82, Estim Creat Clear Calc 55.07, Est GFR (MDRD) Af Amer 87, Est GFR (MDRD) Non-Af 72, BUN/Creatinine Ratio 31.5 H, Glucose 106, Calcium 8.4 L Micro: Microbiology 08/04/24 23:08 Mucosa - Nasopharyngeal Respiratory Panel (PCR) - Final 08/04/24 19:50 Vomitus Gastric Occult Blood - Final Occult Blood Positive Rhythm Strip Rhythm Strip: Sinus Tach Rate: 121 Ectopy: None Imaging Radiology Impression Chest X-Ray 08/04/24 17:58 IMPRESSION: No acute radiographic abnormalities. Electronically Signed: Kye Giles MD at 18:45 EDT , Assessment & Plan Assessment/Plan (1) UTI (urinary tract infection): (2) UGI bleed: PLAN: Plan Very pleasant 73-year-old who comes in with coffee-ground emesis and discovered to have a significant anemia. Upper GI bleed * She has been having incessant nausea and vomiting since her symptoms started yesterday. * Started having coffee-ground emesis in the ED. CT of the abdomen and pelvis did show mild wall thickening of the GE junction which could represent esophagitis and cannot rule out malignancy. * Hemoglobin is 14.9. * Hold all NSAIDs and any blood thinners. She will need to undergo an upper endoscopy to evaluate upper GI tract. She was explained alternatives, risk, benefits including not withstanding bleeding, infection, sepsis, perforation, need for emergent surgery . She will have an ASA of 3. * IV pantoprazole 40 mg twice daily. Treat with IV fluid normal saline at 125 cc/hr Charges/Coding Visit Charges Inpatient E&M: 51861 Init Hosp L3
--- NOTE | 2024-08-05 17:45 | OP.EGD_ITS ---
Patient Name: Yeimi Felix Procedure Date: 08/05/2024 5:29 PM Date of : 1950 Age: 73 Procedure: Upper GI endoscopy Indications: Coffee-ground emesis Providers: Patrick Herrera DO Medicines: Monitored Anesthesia Care Patient Profile: This is a 73 year old female. Refer to note in patient chart for documentation of history and physical. Patient has symptoms of acute vomiting. Complications: No immediate complications. Procedure: Pre-Anesthesia Assessment: - Prior to the procedure, a History and Physical was performed, and patient medications and allergies were reviewed. The patient is competent. The risks and benefits of the procedure and the sedation options and risks were discussed with the patient. All questions were answered and informed consent was obtained. Patient identification and proposed procedure were verified by the physician in the pre-procedure area. Mental Status Examination: alert and oriented. Airway Examination: normal oropharyngeal airway and neck mobility. Respiratory Examination: clear to auscultation. CV Examination: normal. Prophylactic Antibiotics: The patient does not require prophylactic antibiotics. Prior Anticoagulants: The patient has taken no anticoagulant or antiplatelet agents except for NSAID medication. ASA Grade Assessment: II - A patient with mild systemic disease. After reviewing the risks and benefits, the patient was deemed in satisfactory condition to undergo the procedure. The anesthesia plan was to use monitored anesthesia care (MAC). Immediately prior to administration of medications, the patient was re-assessed for adequacy to receive sedatives. The heart rate, respiratory rate, oxygen saturations, blood pressure, adequacy of pulmonary ventilation, and response to care were monitored throughout the procedure. The physical status of the patient was re-assessed after the procedure. After obtaining informed consent, the endoscope was passed under direct vision. Throughout the procedure, the patient's blood pressure, pulse, and oxygen saturations were monitored continuously. The gastroscope was introduced through the mouth, and advanced to the second part of duodenum. The upper GI endoscopy was accomplished without difficulty. The patient tolerated the procedure well. Scope In: 5:37:32 PM Scope Out: 5:41:39 PM Total Procedure Duration Time 0 hours 4 minutes 7 seconds Findings: LA Grade D (one or more mucosal breaks involving at least 75% of esophageal circumference) esophagitis with bleeding was found 34 to 41 cm from the incisors. Biopsies were taken with a cold forceps for histology. Verification of patient identification for the specimen was done. Estimated blood loss was minimal. A large hiatal hernia was present. No gross lesions were noted in the stomach. The first portion of the duodenum was normal. Impression: - LA Grade D erosive esophagitis with bleeding. Biopsied. - Large hiatal hernia. - No gross lesions in the stomach. - Normal first portion of the duodenum. Recommendation: - Return patient to [facility] for ongoing care. - Full liquid diet today. - Continue present medications. - Await pathology results. - Repeat upper endoscopy in 3 months to evaluate the response to therapy. Procedure Code(s): --- Professional --- 59911, Esophagogastroduodenoscopy, flexible, transoral; with biopsy, single or multiple CPT copyright 2021 [employer]. All rights reserved. The codes documented in this report are preliminary and upon tallow pumper review may be revised to meet current compliance requirements. Patrick Herrera DO 08/05/2024 5:45:32 PM This report has been signed electronically. Number of Addenda: 0 Note Initiated On: 08/05/2024 5:29 PM
--- NOTE | 2024-08-05 17:45 | OP.CCLET_ITS ---
08/05/2024 Monica Vee Re : Upper GI endoscopy procedure for Yeimi Felix [place] This procedure was performed on Monday, August 05, 2024. My impressions and recommendations are as follows: Impressions : - LA Grade D erosive esophagitis with bleeding. Biopsied. - Large hiatal hernia. - No gross lesions in the stomach. - Normal first portion of the duodenum. Recommendations : - Return patient to hospital [facility] for ongoing care. - Full liquid diet today. - Continue present medications. - Await pathology results. - Repeat upper endoscopy in 3 months to evaluate the response to therapy. My findings are described in the full procedure note, which is enclosed. If I can be of further assistance, please feel free to contact me at . Sincerely, Patrick Herrera, 08/05/2024 5:45:32 PM This report has been signed electronically.
--- NOTE | 2024-08-05 17:48 | PCM.POST.ANE ---
Anesthesia: Postop Eval I Current Vital Signs Temperature: 98.2 F Pulse Rate: 102 Blood Pressure: 101/48 Respiratory Rate: 18 Pulse Ox: 96 Oxygen Delivery Method: Nasal Cannula Oxygen Flow Rate (L/min): 4 Assessment Airway patent: Yes Spontaneous unlabored respirations: Yes Mental status: Awake and Calm nausea: No Vomiting: No Anesthesia Complication: No Fluid Hydration Crystalloid volume administer (ml): 400 Total IV fluid infused: 400 Progress Note Anesthesia document: Postop Eval 1 completed: Yes
--- NOTE | 2024-08-05 17:49 | POSTOPAN2_ITS ---
Anesthesia Postop Eval I Sum Postop Eval Completion status Anesthesia document: Postop Eval 1 completed: Yes Anesthesia Postop Eval I Summary Anesthesia Postop Eval I Summary: Anesthesia Postop Eval I: Assessment Summary Airway patent Yes 08/05/24 17:49 ROLL SCALE MAN.MDOT Spontaneous unlabored Yes 08/05/24 17:49 ROLL SCALE MAN.MDOT respirations Mental status Awake,Calm 08/05/24 17:49 ROLL SCALE MAN.MDOT nausea No 08/05/24 17:49 ROLL SCALE MAN.MDOT Vomiting No 08/05/24 17:49 ROLL SCALE MAN.MDOT Anesthesia Postop Eval I: Fluid Summary Crystalloid volume administer 400 08/05/24 17:49 ROLL SCALE MAN.MDOT (ml) Colloids volume administered ( ml) Blood Product volume administered (ml) Total IV fluid infused 400 08/05/24 17:49 ROLL SCALE MAN.OT Anesthesia Postop Eval I: Summary Notes Anesthesia Complication No 08/05/24 17:49 ROLL SCALE MAN.OT Anesthesia Complication Comment: Post-operative progress note Anesthesia: Postop Eval II Evaluation Mental status: Awake and Calm Pain Level: 0 nausea: No Vomiting: No Complications Anesthesia Complication: No
--- NOTE | 2024-08-05 17:49 | PCM.POSTANE2 ---
Anesthesia Postop Eval I Sum Postop Eval Completion status Anesthesia document: Postop Eval 1 completed: Yes Anesthesia Postop Eval I Summary Anesthesia Postop Eval I Summary: Anesthesia Postop Eval I: Assessment Summary Airway patent Yes 08/05/24 17:49 SUPERVISOR CABINETMAKER.MDOT Spontaneous unlabored Yes 08/05/24 17:49 SUPERVISOR CABINETMAKER.MDOT respirations Mental status Awake,Calm 08/05/24 17:49 SUPERVISOR CABINETMAKER.MDOT nausea No 08/05/24 17:49 SUPERVISOR CABINETMAKER.MDOT Vomiting No 08/05/24 17:49 SUPERVISOR CABINETMAKER.MDOT Anesthesia Postop Eval I: Fluid Summary Crystalloid volume administer 400 08/05/24 17:49 SUPERVISOR CABINETMAKER.MDOT (ml) Colloids volume administered ( ml) Blood Product volume administered (ml) Total IV fluid infused 400 08/05/24 17:49 SUPERVISOR CABINETMAKER.OT Anesthesia Postop Eval I: Summary Notes Anesthesia Complication No 08/05/24 17:49 SUPERVISOR CABINETMAKER.OT Anesthesia Complication Comment: Post-operative progress note Anesthesia: Postop Eval II Evaluation Mental status: Awake and Calm Pain Level: 0 nausea: No Vomiting: No Complications Anesthesia Complication: No
[2024-08-05] MEDS: Acetaminophen 325 MG Tablet 650 MG PO (20:14)
--- NOTE | 2024-08-06 | ESO_PTH ---
PATIENT: JOSE RAFAEL ARREDONDO LOC: MS3 U#:[id number] AGE/SX: 73/F ROOM: [facility] [place] RE08/04/[address]: Dr. Kourtney Baker MD : 1950 BED: 1 DIS: 08/06/2024 SPEC #: [id number] RECD: 08/06/24 10:20 STATUS: DELMI REGolden #: [id number] CARL: 08/06/24 00:[address]: Patrick Herrera DEPT: SURGICAL PATHOLOGY RECD BY: Leo Roach ENTERED: 08/06/24 10:21 SP TYPE: ESOPH BX OTHR DR: MD Dr. Kourtney Ha MD Carolyn Graham, PRODUCTION GRIP-C Tissues: Esophagus, NOS Procedures: Special Stain Group I Surgery Specimen Level IV GMS Stain (control) Alcian Blue/PAS (control) Comments: @ Ordering doctor for SUIV edited from to @ by MERYL at 08/06/24 1054 @ Submitting doctor edited from to @ by MERYL at 08/06/24 1054 HEADER OPERATION: EGD with biopsies PRE-OP DIAGNOSIS: Upper GI bleed, GERD TISSUE SUBMITTED: Random esophagus biopsy MICROSCOPIC DIAGNOSIS Esophagus, random biopsy: Fragments of squamous mucosa with superficial acute inflammation. Fragments of gastric mucosa with chronic inflammation. Intestinal metaplasia (goblet cell metaplasia) not identified. See comment. 08/07/2024 COMMENT Alcian blue/PAS stain with matched control is used in the evaluation of the specimen. Special stain for fungi is negative for organisms; matched control is appropriate. MICROSCOPIC DESCRIPTION Slides are reviewed. GROSS DESCRIPTION Received in fixative is one container labeled with the patient's name and designated Random esophagus biopsy. The specimen consists of two irregular fragments of light quiñonez soft tissue that in aggregate measure 0.8 x 0.4 x 0.1 cm. The specimen is totally submitted in one cassette. 08/06/2024 TC:2 CPT:68426,63553,11353
[2024-08-06 05:52] VITALS: BP 129/81; PULSE 94; RESP 16; TEMP 36.5; O2SAT 95
[2024-08-06 06:53] LABS: Absolute Lymphocyte Count 0.81 X10^3/uL (0.83-4.51); Absolute Neutrophil Count 6.3 X10^3/uL (2.0-7.7); Basophil# 0.05 X10^3/uL; Basophil% 0.6 % (0-1); Eosinophil# 0.08 X10^3/uL; Hematocrit 37.1 % (37-47); Hemoglobin 11.5 g/dL (12.0-15.0); Lymphocyte # 0.81 X10^3/ul (0.83-4.51); Lymphocyte % 9.9 % (19-41); Mean Corpuscular Volume 93.7 fL (81-99); Mean Platelet Vol. 9.7 fl (6.2-12.0); Monocyte# 0.96 X10^3/uL; Monocyte% 11.7 % (0-10); NRBC Flagged by Analyzer 0 % (0-5); Neutrophil # 6.26 X10^3/uL (2.7-7.7); Neutrophil % 76.2 % (47-70); Platelet Count 252 K/mm3 (150-450); RBC Distribution Width CV 13.7 % (11.6-14.6); RBC Distribution Width SD 47.3 fl (35.1-43.9); Red Blood Count 3.96 M/mm3 (4.2-5.4); White Blood Count 8.2 K/mm3 (4.4-11.0)
[2024-08-06 07:19] LABS: Anion Gap 3 (5-15); BUN 18 mg/dL (7-18); BUN/Creat Ratio 23.6 RATIO (10-20); Calcium,Total 8.8 mg/dL (8.5-10.1); Chloride 108 mmol/L (98-107); Creatinine, Serum 0.76 mg/dL (0.55-1.02); EST Glomerular Filtration Rate 79 mL/min (>60); Est Glom Filt Rate - Afr Amer 95 mL/min (>60); Estimated Creatinine Clearance 56.45 ml/min; Glucose 99 mg/dL (74-106); Potassium 3.9 mmol/L (3.5-5.1); Sodium Level 140 mmol/L (136-145)
[2024-08-06 08:15] VITALS: BP 126/79; PULSE 90; RESP 18; TEMP 37.1; O2SAT 98
[2024-08-06] MEDS: Pantoprazole Sodium 40 MG in 0.9% Normal Saline (100mL MB+) 100 ML 330 MG IV (10:13)
[2024-08-06] MEDS: Lisinopril 10 MG Tablet PO (10:17)
[2024-08-06] MEDS: Ceftriaxone 1 GM/50 ML BAG IV (10:20)
[2024-08-06] MEDS: Pantoprazole Sodium 40 MG Tablet PO (12:49)
--- NOTE | 2024-08-06 16:38 | DCINST_ITS ---
Discharge Instructions Diet Discharge Diet: Light diet - advance as tolerated Activity Discharge Activity: Return to Normal Activity Follow Up Care Test Results: Test results from this visit will be discussed in further detail at your follow- up appointment, if applicable. Discharge Plan Admission Admit Date/Time: 08/04/24 19:54 Primary Reason for Your Visit: Dysuria, vomiting, fever Attending Provider: Kourtney Baker Primary Care Provider: Johanne Callahan Consulting Providers: Cora Sterling Instructions Patient Instructions: Esophagitis Additional Instructions / Restrictions: DISCHARGE INSTRUCTIONS PLEASE READ *Please take this with you to your next doctors appointment* -You will need a repeat upper endoscopy in 3 months to evaluate response to therapy which can be coordinated through the GI doctors office -You will need to follow-up with Dr. Herrera with GI in his office upon discharge. Please call his office to schedule your hospital follow-up appointment (ph. [phone]) -You will be discharged on 7 days of Augmentin 875 mg twice daily -You will need to take Protonix once daily for at least 6 to 8 weeks, optimal duration at the discretion of GI or PCP -Please call your primary care provider's office upon discharge to schedule a hospital follow up within 1 week. -For any concerning signs or symptoms please call 911 or proceed to the nearest emergency department Discharge Orders/Prescriptions Prescriptions: New pantoprazole 40 mg Tablet,Delayed Release (Dr/Ec) 40 mg PO DAILY 30 Days Qty: 30 1RF amoxicillin-pot clavulanate 875-125 mg tablet 1 tab PO BID 7 Days Qty: 14 0RF Continued lisinopril 10 mg tablet 10 mg PO DAILY Referrals / Follow Up: Patrick Herrera DO [Med Staff - Active Staff] - ( -You will need to follow-up with Dr. Herrera with GI in his office upon discharge. Please call his office to schedule your hospital follow-up appointment (ph. [phone])) Johanne Callahan, [employer] [Primary Care Provider] - Within 1 Week Disposition Disposition (needs filled in before D/C Order can be placed): Home, Self Care
--- NOTE | 2024-08-06 16:42 | PCM.DC.SUM ---
Providers Date of Admission: 08/04/24 Date of Discharge: 08/06/24 Primary Care Physician: MARIA C Vee Consultations 08/04/24 21:26 Consult: Gastroenterology Routine Consulting Provider: Sherrie Gastroenter[facility] Reason for Consult: UGI bleed EMERGENT Consult: No MD Notified: Yes Date Notified: 08/04/24 Time Notified: 19:57 Method of Notification: Text Reason For Visit: Esophagitis, UTI Diagnosis Discharge Diagnosis (1) UTI (urinary tract infection): Status: Acute Code(s): N39.0 - Urinary tract infection, site not specified (2) Esophagitis: Status: Acute Code(s): K20.90 - Esophagitis, unspecified without bleeding Plan #UTI-suspected due to E. coli # LA grade D erosive esophagitis with bleeding #Hypertension # ADELIA?resolved Medications at Discharge Home Medications lisinopril 10 mg tablet 10 mg PO DAILY 04/18/24 amoxicillin 875 mg-potassium clavulanate 125 mg tablet 1 tab PO BID 7 days #14 tabs 08/06/24 pantoprazole 40 mg tablet,delayed release 40 mg PO DAILY 30 days #30 tabs 08/06/24 Hospital Course Procedures - (EGD) Summary of Care Provided Minutes Spent on Discharge: 31 Hospital Course: 73-year-old female with history of hypertension and migraines presented to [facility] ED 08/04/2024 with dysuria, vomiting, fever for several days with a Tmax of 101.7. Also had nausea and vomiting began to have coffee-ground emesis. Patient did have downtrend in hemoglobin and she was placed on IV PPI and GI consulted, patient was found to have grade D erosive esophagitis with bleeding 08/05 and was transferred back to the floor in stable condition. She also was noted to have a UTI on presentation preliminarily growing suspected E. coli. Patient significantly improved after PPI initiation and antibiotics. Discussed waiting for final culture versus discharge home with knowledge that antibiotics could need changed pending sensitivities and patient feeling much better with no abdominal pain, nausea, suprapubic pain and would like to go home which is reasonable given her clinical stability and rapid response to treatment. No new or acute complaints. Discharge instructions as follows: -You will need a repeat upper endoscopy in 3 months to evaluate response to therapy which can be coordinated through the GI doctors office -You will need to follow-up with Dr. Herrera with GI in his office upon discharge. Please call his office to schedule your hospital follow-up appointment (ph. [phone]) -You will be discharged on 7 days of Augmentin 875 mg twice daily -You will need to take Protonix once daily for at least 6 to 8 weeks, optimal duration at the discretion of GI or PCP -Please call your primary care provider's office upon discharge to schedule a hospital follow up within 1 week. -For any concerning signs or symptoms please call 911 or proceed to the nearest emergency department Physical Exam Narrative General: Alert, oriented, no apparent distress HEENT: Atraumatic, normocephalic Eyes: Anicteric, normal conjunctiva, extraocular movements grossly intact Neck: Supple Respiratory: Clear to auscultation bilaterally, normal respiratory effort Cardiovascular: Regular rate and rhythm GI: Soft, nontender, nondistended Extremities: No edema Musculoskeletal: Moving all extremities Neuro: No overt focal neurological deficits Skin: No rashes appreciated Psych: Cooperative Weight / BMI Weight Weight: 73.2 kg Body Mass Index (BMI) 30.4 ABG / Lab / Microbiology Data 08/06/24 06:06 08/06/24 06:06 Laboratory: Laboratory Results - last 24 hr 08/06/24 06:06: WBC 8.2, RBC 3.96 L, Hgb 11.5 L, Hct 37.1, MCV 93.7, MCH 29.0, MCHC 31.0 L, RDW Std Deviation 47.3 H, RDW Coeff of Mack 13.7, Plt Count 252, MPV 9.7, Immature Gran % (Auto) 0.600, Neut % (Auto) 76.2 H, Lymph % (Auto) 9.9 L, Dyer % (Auto) 11.7 H, Eos % (Auto) 1.0, Baso % (Auto) 0.6, Absolute Neuts (auto) 6.3, Absolute Lymphs (auto) 0.81 L, Nucleated RBC % 0, Sodium 140, Potassium 3.9, Chloride 108 H, Carbon Dioxide 29.0, Anion Gap 3 L, BUN 18, Creatinine 0.76, Estim Creat Clear Calc 56.45, Est GFR (MDRD) Af Amer 95, Est GFR (MDRD) Non-Af 79, BUN/Creatinine Ratio 23.6 H, Glucose 99, Calcium 8.8 Microbiology: Microbiology 08/04/24 16:20 Urine, Random Urine Culture - Preliminary Presumptive E. coli 08/04/24 23:08 Mucosa - Nasopharyngeal Respiratory Panel (PCR) - Final 08/04/24 19:50 Vomitus Gastric Occult Blood - Final Occult Blood Positive D/C Instructions Discharge Diet: Light diet - advance as tolerated Meaningful Use Info Meaningful Use Meaningful Use Diagnoses (Choose all that apply): None applicable Ischemic Stroke Statin Dosing Therapy Reference: STATIN DOSE THERAPY REFERENCE: * Patients > 75 years receive moderate or high dose statin therapy. * Patients 75 years or YOUNGER should receive HIGH intensity statin dose unless contraindicated. You will be required to document reason for non-treatment if statin daily dose does not meet guidelines. HIGH DOSE STATIN THERAPY DAILY Atorvastatin > than or = to 40 mg Rosuvastatin > than or = to 20 mg Amlodipine + Atorvastatin > than or = to 2.5/40 mg Ezetimibe + Simvastatin 10/80 mg Simvastatin 80mg Discharge Plan Admission Admit Date/Time: 08/04/24 19:54 Primary Reason for Your Visit: Dysuria, vomiting, fever Attending Provider: Kourtney Baker Primary Care Provider: Johanne Callahan Consulting Providers: Cora Sterling Instructions Patient Instructions: Esophagitis Additional Instructions / Restrictions: DISCHARGE INSTRUCTIONS PLEASE READ *Please take this with you to your next doctors appointment* -You will need a repeat upper endoscopy in 3 months to evaluate response to therapy which can be coordinated through the GI doctors office -You will need to follow-up with Dr. Herrera with GI in his office upon discharge. Please call his office to schedule your hospital follow-up appointment (ph. [phone]) -You will be discharged on 7 days of Augmentin 875 mg twice daily -You will need to take Protonix once daily for at least 6 to 8 weeks, optimal duration at the discretion of GI or PCP -Please call your primary care provider's office upon discharge to schedule a hospital follow up within 1 week. -For any concerning signs or symptoms please call 911 or proceed to the nearest emergency department Discharge Orders/Prescriptions Prescriptions: New pantoprazole 40 mg Tablet,Delayed Release (Dr/Ec) 40 mg PO DAILY 30 Days Qty: 30 1RF amoxicillin-pot clavulanate 875-125 mg tablet 1 tab PO BID 7 Days Qty: 14 0RF Continued lisinopril 10 mg tablet 10 mg PO DAILY Referrals / Follow Up: Patrick Herrera DO [Med Staff - Active Staff] - ( -You will need to follow-up with Dr. Herrera with GI in his office upon discharge. Please call his office to schedule your hospital follow-up appointment (ph. [phone])) Johanne Callahan, [employer] WEB DEVELOPER-C [Primary Care Provider] - Within 1 Week Disposition Disposition (needs filled in before D/C Order can be placed): Home, Self Care Charges/Coding Visit Charges Inpatient E&M: 41119 Disch Hosp >30min
--- NOTE | 2024-08-06 17:10 | PN.GI_ITS ---
Subjective Subjective Patient underwent upper endoscopy yesterday for upper GI bleed. Findings: LA Grade D (one or more mucosal breaks involving at least 75% of esophageal circumference) esophagitis with bleeding was found 34 to 41 cm from the incisors. Biopsies were taken with a cold forceps for histology. Verification of patient identification for the specimen was done. Estimated blood loss was minimal. A large hiatal hernia was present. No gross lesions were noted in the stomach. The first portion of the duodenum was normal. Impression: - LA Grade D erosive esophagitis with bleeding. Biopsied. - Large hiatal hernia. - No gross lesions in the stomach. - Normal first portion of the duodenum. Recommendation: - Return patient to hospital [facility] for ongoing care. - Full liquid diet today. - Continue present medications. - Await pathology results. - Repeat upper endoscopy in 3 months to evaluate the response to therapy. Objective Data Objective Data Vital Signs: Vital Signs Temp Pulse Resp BP Pulse Ox O2 Del Method O2 Flow Rate 98.7 F 90 18 126/79 H 98 Room Air 2 08/06/24 08:15 08/06/24 08:15 08/06/24 08:15 08/06/24 08:15 08/06/24 08:15 08/06/24 10:00 08/05/24 18:00 Oxygen Flow Rate (L/min) 2 Oxygen Delivery Method Room Air Weight: 161 lb 6.054 oz Body Mass Index (BMI) 30.4 Intake & Output: Intake and Output for Last 24 Hours 08/04/24 08/05/24 08/06/24 23:59 23:59 23:59 Intake Total 2160 / 2560 2820 / 2820 995.25 / 995.25 Balance 2160 / 2560 2820 / 2820 995.25 / 995.25 Lab / Micro Data 08/06/24 06:06 08/06/24 06:06 Labs: Laboratory Results - last 24 hr 08/06/24 06:06: WBC 8.2, RBC 3.96 L, Hgb 11.5 L, Hct 37.1, MCV 93.7, MCH 29.0, M CHC 31.0 L, RDW Std Deviation 47.3 H, RDW Coeff of Mack 13.7, Plt Count 252, MPV 9.7, Immature Gran % (Auto) 0.600, Neut % (Auto) 76.2 H, Lymph % (Auto) 9.9 L, M maureen % (Auto) 11.7 H, Eos % (Auto) 1.0, Baso % (Auto) 0.6, Absolute Neuts (auto) 6.3, Absolute Lymphs (auto) 0.81 L, Nucleated RBC % 0, Sodium 140, Potassium 3.9, Chloride 108 H, Carbon Dioxide 29.0, Anion Gap 3 L, BUN 18, Creatinine 0.76, Estim Creat Clear Calc 56.45, Est GFR (MDRD) Af Amer 95, Est GFR (MDRD) Non-Af 79, BUN/Creatinine Ratio 23.6 H, Glucose 99, Calcium 8.8 Micro: Microbiology 08/04/24 16:20 Urine, Random Urine Culture - Preliminary Presumptive E. coli 08/04/24 23:08 Mucosa - Nasopharyngeal Respiratory Panel (PCR) - Final 08/04/24 19:50 Vomitus Gastric Occult Blood - Final Occult Blood Positive Rhythm Strip Rhythm Strip: Sinus Tach Rate: 121 Ectopy: None Physical Exam Narrative General: Alert, oriented, no apparent distress HEENT: Atraumatic, normocephalic Eyes: Anicteric, normal conjunctiva, extraocular movements grossly intact Neck: Supple Respiratory: Clear to auscultation bilaterally, normal respiratory effort Cardiovascular: Regular rate and rhythm GI: Soft, nontender, nondistended Extremities: No edema Musculoskeletal: Moving all extremities Neuro: No overt focal neurological deficits Skin: No rashes appreciated Psych: Cooperative Assessment & Plan Assessment/Plan (1) UTI (urinary tract infection): PLAN: Plan UGIB -Patient with coffee-ground emesis on presentation, did have gastric occult obtained which was positive -Patient with hemoglobin of 14.9 down to 12 today -Patient should be on twice daily PPI therapy and Carafate 3 times a day for approximately 12 weeks and repeat her upper endoscopy. Charges/Coding Visit Charges Inpatient E&M: 48121 Subs Hosp L2
[2024-08-06 18:19] VITALS: BP 127/70; PULSE 97; RESP 18; TEMP 36.8; O2SAT 98
--- NOTE | 2024-08-07 17:24 | PCM.HOSP.N ---
Hospitalist Note Called update patient that her urine culture was back and she can continue her current antibiotics. Also updated her on GI recommendations of Protonix twice a day, new prescription sent to pharmacy, and Carafate 3 times daily. She reports that she has an appointment scheduled with GI coming up and verbalized her understanding of the instructions that Carafate will be sent to her preferred pharmacy on file, [facility]. All questions answered.
== END 2024-08-06 18:19 | disposition home or self-care (01) | DRG 689 ==
LOC: ED 15:38 → MS3 20:54
PROVIDERS: Internal Medicine Gastroenterology; Admitting Provider Student in an Organized Health Care Education/Training Program; Emergency Provider Emergency Medicine; PCP Nurse Practitioner Family; Visit Provider Internal Medicine
PROC: 0DJ08ZZ Inspection of Upper Intestinal Tract, Via Natural or Artificial Opening Endoscopic (ICD-10-PCS; CPT 43235; principal; 2024-08-05 16:45)
DX: N39.0 Urinary tract infection, site not specified (principal); K22.11 Ulcer of esophagus with bleeding; N17.9 Acute kidney failure, unspecified; K92.2 Gastrointestinal hemorrhage, unspecified; I10 Essential (primary) hypertension; K44.9 Diaphragmatic hernia without obstruction or gangrene; Z79.899 Other long term (current) drug therapy; R94.31 Abnormal electrocardiogram [ECG] [EKG]; I45.10 Unspecified right bundle-branch block; R00.0 Tachycardia, unspecified
CPT/HCPCS: 43239; 36415; 71046; 74177; 80048; 80053; 81001; 82271; 83605; 85025; 87040; 87086; 87088; 87186; 87633; 88305; 88312; 93005; 96361; 96365; 96366; 96367; 96368; 96375; 96376; 99221; 99285; Q9967; A4216; G0378; J2405

== ENCOUNTER 2024-10-29 10:42 | Day surgery (SDC) | payer MEDICARE, SELFPAY ==
[2024-10-29] VITALS (8 sets, daily range): BP systolic 103–141; BP diastolic 75–87; PULSE 100–116; RESP 15–18; TEMP 36.1–36.9; O2SAT 93–98; BMI 30.8
--- NOTE | 2024-10-29 13:00 | EGD_PTH ---
PATIENT: JOSE RAFAEL ARREDONDO LOC: EN U#:[id number] AGE/SX: 74/F ROOM: RE10/29/[address]: Dr. Patrick Herrera DO : 1950 BED: DIS: 10/29/2024 SPEC #: [id number] RECD: 10/29/24 17:57 STATUS: DELMI REGolden #: [id number] CARL: 10/29/24 13:[address]: Patrick Herrera DEPT: SURGICAL PATHOLOGY RECD BY: Shani Ortiz ENTERED: 10/30/24 09:31 SP TYPE: EGD BIOPSY ANGÉLICA DR: Johanne Callahan, GENERATION ENGINEERING TECHNOLOGIST-C Tissues: Esophagus, NOS Procedures: Special Stain Group I Surgery Specimen Level IV Alcian Blue/PAS (control) HEADER OPERATION: EGD with biopsy PRE-OP DIAGNOSIS: Esophagitis, upper GI bleed TISSUE SUBMITTED: Distal esophagus biopsy MICROSCOPIC DIAGNOSIS Distal esophagus, biopsy: Mild chronic and focal acute inflammation. Fibrin purulent exudate and early granulation consistent with ulcer. No evidence of goblet cell metaplasia. See comment. AMArt 10/31/2024 COMMENT Alcian blue/PAS stain with matched control supports the above diagnosis. MICROSCOPIC DESCRIPTION Slides are reviewed. GROSS DESCRIPTION Received in fixative is one container labeled with the patient's name and designated Distal esophagus biopsy. The specimen consists of multiple irregular fragments of light quiñonez soft tissue that in aggregate measure 1.0 x 1.0 x 0.1 cm. The specimen is totally submitted in one cassette. AM. 10/30/2024 TC:2 CPT:31262,91945
--- NOTE | 2024-10-29 13:22 | HP.PCM_ITS ---
History and Physical Date of Admission: 10/29/24 Chief Complaint: coffee ground emesis f/u Details: JOSE RAFAEL ARREDONDO, is a 73-year-old female with history of hypertension and migraines presented to [facility] ED 08/04/2024 with dysuria, vomiting, fever for several days with a Tmax of 101.7. Also had nausea and vomiting began to have coffee-ground emesis. Patient did have downtrend in hemoglobin and she was placed on IV PPI and I was consulted. ROS Const Constitutional: No fatigue, fever(s), frequent falls, headache(s), weakness or weight change ENT ENT: No headache(s) or difficulty swallowing Cardio Cardiology: No leg pain with exertion Gastro GI: No abdominal pain, bloating, change in bowel habits, constipation, diarrhea, heartburn, difficulty swallowing, excessive flatus, Vomiting blood/hematemesis, Blood in stool, nausea/dyspepsia or vomiting Musc Musculoskeletal: Positive for other (increased tone in limb); No joint pain, back pain, joint swelling, muscle cramps, muscle weakness, numbness, stiffness, tingling, Arthritis, sciatica, restless legs, leg pain at night or leg pain with exertion Skin Skin: No dry skin, lesions, itchy eyes or rash Neuro Neurology: No behavioral changes, unsteady gait/balance, weakness, frequent falls, headache(s), numbness, tingling, restless legs, tremor(s), Increased tone in limbs, paralysis or seizures Psych Psychiatric: No anxiety, No behavioral changes, No depression, No paranoia, No Compulsive Behavior, No hyperactivity, No inattentiveness, No ob sessions/compulsions, No Temper Tantrums and No suicidal ideation Endo Endocrine: No fatigue or weight change Aller/Imm Allergy/Immunologic: No itchy eyes Jose Juan/Lymp Hematologic/Lymphatic: No easy bleeding or easy bruising Exam Const General: cooperative and comfortable Nutritional Appearance: average body habitus and well nourished HENMT Head: normal to inspection Ears: hearing grossly normal bilaterally Nose: external nose normal Face and sinus: normal facial exam Mouth: oral mucosae normal Throat: posterior oropharynx normal Eyes General: appearance normal, both eyes and all related structures Neck Neck: normal visual inspection Chest Chest palpation & inspection: normal inspection of the chest and normal palpation of entire chest wall Resp Effort & Inspection: normal respiratory effort Auscultation: Bilateral: Clear to Auscultation Cardio Palpation: normal PMI Rate: regular rate Rhythm: regular rhythm GI Inspection: normal to inspection Auscultation: normal bowel sounds Percussion: normal to percussion Palpation: no hepatosplenomegaly Skin General: no rashes or lesions noted Neuro General: patient alert Extrem General: normal to inspection Psych Affect: normal affect Assessment and Plan Assessment and Plan (1) Esophagitis: Status: Acute (2) UGI bleed: Status: Acute Plan: 73-year-old female with history of hypertension and migraines presented to [facility] ED 08/04/2024 with dysuria, vomiting, fever for several days with a Tmax of 101.7. Also had nausea and vomiting began to have coffee- ground emesis. Patient did have downtrend in hemoglobin and she was placed on IV PPI and I was consulted. She underwent an emergent upper endoscopy and the patient was found to have grade D erosive esophagitis with bleeding 08/05 and was transferred back to the floor in stable condition. She also was noted to have a UTI on presentation preliminarily growing suspected E. coli. Patient significantly improved after PPI initiation and antibiotics. She comes back in for follow-up visit today. She is Carafate therapy 3 times a day and PPI twice a day. She doing very well. She denies any dysphagia, chest pain or shortness. Recommendations :repeat upper endoscopy in 3 months to evaluate response to therapy I have examined the patient and the H&P has been reviewed. There are no clinical changes since date of exam.
--- NOTE | 2024-10-29 13:23 | PCM.PRE.AN2 ---
ASA Classification* ASA Classification ASA Classification: 2 Assessment & Plan Anesthesia* Anesthesia Assessment Anesthesia Assessment: Discussed sedation and/or anesthesia options, risks, benefits, and alternatives with patient/parents/legal guardian/POA. Questions invited. The patient/parents/legal guardian/POA seems to understand and agrees to proceed with anesthesia plan. Reviewed the physical assessment, medical history, allergy history and patient home medications list prior to surgery/procedure/anesthetic and documented any changes. Performed airway and anesthesia risk assessments. Anesthesia Type Anesthesia Type: MAC History Source History Obtained from:: Patient and Chart Anesthesia Focused Assessment* Temperature: 98.5 F Pulse Rate: 116 Blood Pressure: 141/87 Respiratory Rate: 18 Pulse Ox: 98 Oxygen Delivery Method: Room Air Airway Assessment Mouth opens: 2 cm Mallampati Score: IV Teeth Condition: Chipped/Broken (Patient has multiple broken molars. In 3 quadrants) Neck Range of motion (ROM): Full ROM Focused Labs Anesthesia Preop lab: CBC WBC 8.2 K/mm3 (4.4-11.0) 08/06/24 06:06 RBC 3.96 M/mm3 (4.2-5.4) L 08/06/24 06:06 Hgb 11.5 g/dL (12.0-15.0) L 08/06/24 06:06 Hct 37.1 % (37-47) 08/06/24 06:06 Plt Count 252 K/mm3 (150-450) 08/06/24 06:06 CHEMISTRY Potassium 3.9 mmol/L (3.5-5.1) 08/06/24 06:06 Sodium 140 mmol/L (136-145) 08/06/24 06:06 BUN 18 mg/dL (7-18) 08/06/24 06:06 Creatinine 0.76 mg/dL (0.55-1.02) 08/06/24 06:06 Glucose 99 mg/dL (74-106) 08/06/24 06:06 TSH 0.60 uIU/mL (0.358-3.74) 11/21/23 09:50 COAG Pre-Assessment Diagnosis/Proposed Procedure Planned Operative Procedure(s): EGD Anesthesia History Anesthesia 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 When Was Last Pacemaker Check QUESTION #4 FULL TEXT: You/Your Family Experience fever (hyperthermia) with Anesthesia Last Oral Intake Last Oral intake: Last Oral Intake NPO since 17:00 10/29/24 12:27 Meds taken in AM with sips of No 10/29/24 12:27 water? Meds patient instructed to take am of surgery PONV PONV - flash drier operator: PONV - flash drier operator Female Yes 10/22/24 14:47 HX of Motion Sickness No 10/22/24 14:47 HX of N/V After Surgery No 10/22/24 14:47 Non-Smoker Yes 10/22/24 14:47 Duration of Surgery greater No 10/22/24 14:47 than 60 minutes Number of Risk Factors 2 10/22/24 14:47 PONV Score Moderate Risk 10/22/24 14:47 Height & Weight Height & Weight: Anesthesia: Height & Weight Height 5 ft 1 in 10/29/24 12:27 Weight: 74 kg 10/29/24 12:27 Body Mass Index (BMI) 30.8 10/29/24 12:27 Respiratory Assessment Respiratory Assessment - flash drier operator: Respiratory Tract Infection Hx - flash drier operator Hx Respiratory Tract Infection No 10/22/24 14:47 STOP Sleep Apnea STOP Sleep Apnea - flash drier operator: STOP Sleep Apnea - flash drier operator Hx Hypertension Yes 10/22/24 14:47 Hx Sleep Apnea No 10/22/24 14:47 CPAP BIPAP Do you snore loudly (louder No 10/22/24 14:47 than talking or can be heard Do you often feel tired/ No 10/22/24 14:47 fatigued/ sleepy during daytime? Has anyone observed you stop No 10/22/24 14:47 breathing during sleep? STOP Results Negative 10/22/24 14:47 QUESTION #5 FULL TEXT : Do you snore loudly (louder than talking or can be heard through closed doors)? 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 Specify any problems Hx of Preganancy in last 3 No 10/22/24 14:47 Months Nurse Filling Out Transfusion [id number] 10/22/24 14:47 & Questions: Date: 10/22/24 10/22/24 14:47 Time: 14:52 10/22/24 14:47 Patient unable to answer at this time (ie. confused, unrespo /Reproduction History /Reproductive History - flash drier operator: /Reproductive Hx- flash drier operator Hx Now Gestational Age (in weeks): EDC: Hx Hx Para Hx Section SAB No 10/22/24 14:47 PFSH Medical History UGI bleed Post-menopausal Anemia Easy bruising Migraine headache Injury of head and neck Non-smoker Urolithiasis Hypertension Home Medications ?Medication ?Instructions ?Recorded ?Last Taken ?Type lisinopril 10 mg tablet 10 mg PO DAILY 04/18/24 10/28/24 History Allergy/AdvReac Type Severity Reaction Status Date / Time Tetanus Vaccines and Toxoid Allergy Swelling Verified 10/29/24 12:25 codeine AdvReac Nausea Verified 10/29/24 12:25 Sulfa (Sulfonamide AdvReac Nausea Verified 10/29/24 12:25 Antibiotics) Family History Mother Heart disease Father Cancer Skin Surgical History Hx of colonoscopy History of ureteroscopy Hx of appendectomy Hx of discectomy Hx of hysterectomy Hx of cystoscopy Social History Smoking Status: Never smoker alcohol intake: never substance use type: does not use caffeine: Yes Type: coffee Number of servings: 1 what type of physical activity do you participate in: walking frequency: 3-4 times per week Review of Systems (Anesthesia) ROS Narrative System reviewed and no additional complaints, except as documented.
--- NOTE | 2024-10-29 14:09 | OP.CCLET_ITS ---
10/29/2024 Monica Vee Re : Upper GI endoscopy procedure for Yeimi Felix Dear Lonodn This procedure was performed on Tuesday, October 29, 2024. 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 Biopsied. - LA Grade C erosive esophagitis with bleeding. Biopsied. - Large hiatal hernia. - No gross lesions in the first portion of the duodenum. Recommendations : - Discharge patient to home. - Resume previous diet. - Continue present medications. - Await pathology results. - Repeat upper endoscopy in 6 months for surveillance. My findings are described in the full procedure note, which is enclosed. If I can be of further assistance, please feel free to contact me at . Sincerely, Patrick Herrera, 10/29/2024 2:08:57 PM This report has been signed electronically.
--- NOTE | 2024-10-29 14:09 | OP.EGD_ITS ---
Patient Name: Yeimi Felix Procedure Date: 10/29/2024 1:54 PM Date of : 1950 Age: 74 Procedure: Upper GI endoscopy Indications: Heartburn, Follow-up of Griffin's esophagus Providers: Patrick Herrera DO Referring MD: Patrick Herrera DO Medicines: Monitored Anesthesia Care Patient Profile: This is a 74 year old female. Refer to note in patient chart for documentation of history and physical. Patient has symptoms of dysphagia with solids and chronic heartburn. Complications: No immediate complications. Procedure: Pre-Anesthesia Assessment: - Prior to the procedure, a History and Physical was performed, and patient medications and allergies were reviewed. The patient is competent. The risks and benefits of the procedure and the sedation options and risks were discussed with the patient. All questions were answered and informed consent was obtained. Patient identification and proposed procedure were verified by the physician in the pre-procedure area. Mental Status Examination: alert and oriented. Airway Examination: normal oropharyngeal airway and neck mobility. Respiratory Examination: clear to auscultation. CV Examination: normal. Prophylactic Antibiotics: The patient does not require prophylactic antibiotics. Prior Anticoagulants: The patient has taken no anticoagulant or antiplatelet agents. ASA Grade Assessment: II - A patient with mild systemic disease. After reviewing the risks and benefits, the patient was deemed in satisfactory condition to undergo the procedure. The anesthesia plan was to use monitored anesthesia care (MAC). Immediately prior to administration of medications, the patient was re-assessed for adequacy to receive sedatives. The heart rate, respiratory rate, oxygen saturations, blood pressure, adequacy of pulmonary ventilation, and response to care were monitored throughout the procedure. The physical status of the patient was re-assessed after the procedure. After obtaining informed consent, the endoscope was passed under direct vision. Throughout the procedure, the patient's blood pressure, pulse, and oxygen saturations were monitored continuously. The gastroscope was introduced through the mouth, and advanced to the second part of duodenum. The upper GI endoscopy was accomplished without difficulty. The patient tolerated the procedure well. Scope In: 2:01:34 PM Scope Out: 2:04:26 PM Total Procedure Duration Time 0 hours 2 minutes 52 seconds Findings: There were esophageal mucosal changes secondary to established long-segment Griffin's disease present in the lower third of the esophagus. The maximum longitudinal extent of these mucosal changes was 4 cm in length. Mucosa was biopsied with a cold forceps for histology in a targeted manner at intervals of 1 cm in the lower third of the esophagus. One specimen bottle was sent to pathology. Verification of patient identification for the specimen was done by the nurse. Estimated blood loss was minimal. LA Grade C (one or more mucosal breaks continuous between tops of 2 or more mucosal folds, less than 75% circumference) esophagitis with bleeding was found 35 to 40 cm from the incisors. Biopsies were taken with a cold forceps for histology. Verification of patient identification for the specimen was done. Estimated blood loss was minimal. A large hiatal hernia was present. No gross lesions were noted in the first portion of the duodenum. 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 Biopsied. - LA Grade C erosive esophagitis with bleeding. Biopsied. - Large hiatal hernia. - No gross lesions in the first portion of the duodenum. Recommendation: - Discharge patient to home. - Resume previous diet. - Continue present medications. - Await pathology results. - Repeat upper endoscopy in 6 months for surveillance. Procedure Code(s): --- Professional --- 16137, Esophagogastroduodenoscopy, flexible, transoral; with biopsy, single or multiple CPT copyright 2021 [employer]. All rights reserved. The codes documented in this report are preliminary and upon central sterile technician review may be revised to meet current compliance requirements. Patrick Herrera DO 10/29/2024 2:08:57 PM This report has been signed electronically. Number of Addenda: 0 Note Initiated On: 10/29/2024 1:54 PM
--- NOTE | 2024-10-29 14:13 | PCM.POST.ANE ---
Anesthesia: Postop Eval I Current Vital Signs Temperature: 97 F Pulse Rate: 101 Blood Pressure: 112/81 Respiratory Rate: 16 Pulse Ox: 96 Oxygen Delivery Method: Room Air Assessment Airway patent: Yes Spontaneous unlabored respirations: Yes Mental status: Awake and Calm nausea: No Vomiting: No Anesthesia Complication: No Fluid Hydration Crystalloid volume administer (ml): 30 Total IV fluid infused: 30 Progress Note Anesthesia document: Postop Eval 1 completed: Yes
--- NOTE | 2024-10-29 16:53 | PCM.POSTANE2 ---
Anesthesia Postop Eval I Sum Postop Eval Completion status Anesthesia document: Postop Eval 1 completed: Yes Anesthesia Postop Eval I Summary Anesthesia Postop Eval I Summary: Anesthesia Postop Eval I: Assessment Summary Airway patent Yes 10/29/24 14:14 [email or web address] Spontaneous unlabored Yes 10/29/24 14:14 [email or web address] respirations Mental status Awake,Calm 10/29/24 14:14 [email or web address] nausea No 10/29/24 14:14 [email or web address] Vomiting No 10/29/24 14:14 [email or web address] Anesthesia Postop Eval I: Fluid Summary Crystalloid volume administer 30 10/29/24 14:14 [email or web address] (ml) Colloids volume administered ( ml) Blood Product volume administered (ml) Total IV fluid infused 30 10/29/24 14:14 [email or web address] Anesthesia Postop Eval I: Summary Notes Anesthesia Complication No 10/29/24 14:14 [email or web address] Anesthesia Complication Comment: Post-operative progress note Anesthesia: Postop Eval II Evaluation Mental status: Awake and Calm Pain Level: 0 nausea: No Vomiting: No Complications Anesthesia Complication: No
== END 2024-10-29 15:07 | disposition home or self-care (01) ==
LOC: EN 10:46 → AC 10:49
PROVIDERS: PCP Nurse Practitioner Family; Referring Provider Nurse Practitioner Family; Visit Provider Internal Medicine Gastroenterology
PROC: 0DJ08ZZ Inspection of Upper Intestinal Tract, Via Natural or Artificial Opening Endoscopic (ICD-10-PCS; CPT 43235; principal; 2024-10-29 12:55)
DX: K22.11 Ulcer of esophagus with bleeding (principal); K44.9 Diaphragmatic hernia without obstruction or gangrene; I10 Essential (primary) hypertension; Z79.899 Other long term (current) drug therapy
CPT/HCPCS: 43239; 88305; 88312; A4216; J2405

== ENCOUNTER → 2025-09-03 | Outpatient (CLI) | payer MEDICARE, SELFPAY ==
--- NOTE | 2025-09-03 14:50 | CT_ITS ---
PROCEDURE: CT abdomen and pelvis with and without contrast. 09/03/2025 REASON FOR EXAM: LIVER HEMANGIOMA TECHNIQUE: Procedure Code: [id number] Modality: CT Procedure: CT ABD/PELVIS W/WO CONTRAST Coronal and Sagittal reconstruction series were provided. CONTRAST: Isovue-300 VOLUME: 98 mL One or more dose reduction techniques were used (e.g., Automated exposure control, adjustment of the mA and/or kV according to patient size, use of iterative reconstruction technique. RADIATION DOSE SUMMARY: CTDlvol: 97.75 mGy DLP: 2222.44 mGycm COMPARISON: CT abdomen and pelvis with IV contrast, 08/04/2024. FINDINGS: Lung bases: There is atelectasis or scarring in the medial left lung, abutting the pericardium. The lung bases are otherwise clear. There are no pleural effusions. The heart size is normal. There is no pericardial effusion. There is no calcific vascular disease of the coronary arteries evident. There is calcific vascular disease of the visualized thoracic aorta. Liver: There is a 3.3 x 2.8 cm mass in the posterior segment of the right hepatic lobe demonstrating peripheral contrast pooling which becomes more isointense to the surrounding liver on the 1 minute delayed image, most consistent with a hemangioma. Gallbladder: Normal. Spleen: Normal size. Pancreas: Normal size without evidence of mass surrounding inflammation or ductal dilation. Adrenals: Normal. Kidneys: There is persistent lobulation of both kidneys a normal variant. 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 There is bilateral nephrolithiasis., on the left, there is a 4 mm stone in the renal pelvis, not yet obstructing. Bladder: The bladder is evacuated. Reproductive Organs: The uterus is surgically absent. The left ovary is normal. The right ovary is not identified. There is no free fluid in the pelvis. There is no inguinal lymphadenopathy. Bowel: There is a small hiatal hernia. There is moderate sigmoid diverticulosis without diverticulitis. Appendix: The appendix is not identified. There is no inflammatory process identified in the right lower quadrant to suggest appendicitis. Lymph nodes: No suspicious lymph node enlargement. Vasculature: Mild diffuse atherosclerotic calcifications are noted. Peritoneum / Retroperitoneum: There are no abnormal intra or retroperitoneal masses or fluid collections. There is a 1.4 cm in diameter umbilical hernia containing normal fat. Bones: There is multilevel degenerative disc disease of the lumbar spine most severe at the L3-4 through L5-S1 levels. Status post bilateral laminectomy at L4 on L5. There is severe rotary scoliosis of the lumbar spine convex left. CT/CT Abd/Pelvis W/WO Contrast IMPRESSION: 1. Hyperenhancing mass in the posterior segment of the right hepatic lobe cons istent with an hepatic hemangioma. 2. There is bilateral nephrolithiasis. There is a stone in the left renal pel vis, which could be, obstructing at any time. 3. Other findings as noted. Reading Location: [place] [id number]
== END | disposition home or self-care (01) ==
PROVIDERS: PCP Nurse Practitioner Family; Referring Provider Internal Medicine Gastroenterology; Visit Provider Internal Medicine Gastroenterology
DX: D18.03 Hemangioma of intra-abdominal structures (principal)
CPT/HCPCS: 74178; Q9967; A4216

== ENCOUNTER → 2025-09-26 | Outpatient (CLI) | payer MEDICARE, SELFPAY ==
--- NOTE | 2025-09-26 09:32 | US_ITS ---
PROCEDURE: US/Gallbladder
== END | disposition home or self-care (01) ==
PROVIDERS: PCP Nurse Practitioner Family; Referring Provider Surgery; Visit Provider Surgery
DX: R10.11 Right upper quadrant pain (principal); K44.9 Diaphragmatic hernia without obstruction or gangrene
CPT/HCPCS: 76705

== ENCOUNTER 2025-10-03 10:15 | Day surgery (SDC) | payer MEDICARE, SELFPAY ==
[2025-10-03] MEDS: Lidocaine Jelly 2% 20 ML Syringe (URO-JET) 1 APPLIC (10:45)
[2025-10-03 10:58] VITALS: BP 151/74; PULSE 120; TEMP 37.1; O2SAT 96
== END 2025-10-03 11:16 | disposition home or self-care (01) ==
PROVIDERS: PCP Nurse Practitioner Family; Referring Provider Nurse Practitioner Family; Visit Provider Surgery
DX: K21.9 Gastro-esophageal reflux disease without esophagitis (principal)
CPT/HCPCS: 91010